=== PATIENT | female | born 1950 | race Caucasian/White ===

== ENCOUNTER → 2017-03-26 07:51 | Outpatient (CLI) | payer MEDICARE, SELFPAY ==
[2017-03-26 10:28] LABS: Absolute Lymphocyte Count 2.18 X10^3/ul (0.83-4.51); Absolute Neutrophil Count 4.2 X10^3/uL (2.0-7.7); Basophil# 0.03 X10^3/uL; Basophil% 0.4 % (0-1); Eosinophil# 0.17 X10^3/uL; Eosinophils% 2.4 % (0-5); Hematocrit 40.2 % (37-47); Hemoglobin 12.4 g/dl (12.0-15.0); Lymphocyte # 2.18 X10^3/ul (4.0); Lymphocyte % 30.3 % (19-41); Mean Corp Hgb Conc 30.8 g/gl (32-36); Mean Corpuscular Hgb 26.5 pg (27.0-32.0); Mean Corpuscular Volume 85.9 fL (81-99); Mean Platelet Vol. 10.1 fl (6.2-12.0); Monocyte# 0.58 X10^3/uL; Monocyte% 8.1 % (0-10); Neutrophil # 4.23 X10^3/uL (2.7-7.7); Neutrophil % 58.7 % (47-70); Platelet Count 271 K/mm3 (150-450); RBC Distribution Width CV 14.9 % (11.6-14.6); Red Blood Count 4.68 M/mm3 (4.2-5.4); White Blood Count 7.2 K/mm3 (4.4-11.0)
[2017-03-26 10:31] LABS: POSITIVE COUNT NO; POSITIVE DIFFERENTIAL NO; POSITIVE MORPHOLOGY NO
[2017-03-26 10:55] LABS: ALB/GLOB Ratio 0.9 RATIO (0.9-2.4); AST(SGOT) 15 U/L (15-37); Alanine Aminotransfer ALT/SGPT 31 U/L (13-56); Albumin, Serum 3.3 g/dL (3.2-5.0); Alkaline Phosphatase 69 U/L (45-117); Anion Gap 8 (5-15); BUN 27 mg/dL (7-18); BUN/Creat Ratio 37.6 RATIO (10-20); Calcium,Total 8.7 mg/dL (8.5-10.1); Chloride 108 mmol/L (98-107); Cholesterol 153 mg/dL (200); Creatinine, Serum 0.72 mg/dL (0.55-1.02); EST Glomerular Filtration Rate 87 mL/min (>60); Est Glom Filt Rate - Afr Amer 105 mL/min (>60); Globulin 3.8 g/dL (2.2-4.2); Glucose 89 mg/dL (74-106); High Density Lipoprotein 49 mg/dL; Potassium 3.6 mmol/L (3.5-5.1); Protein, Total 7.1 g/dL (6.4-8.2); Sodium Level 142 mmol/L (136-145); Thyroid Stim Hormone (TSH) 2.21 uIU/mL (0.358-3.74); Triglycerides 155 mg/dL; Very Low Density Lipoprotein 31 mg/dL (5-40)
== END ==
PROVIDERS: Family Provider Family Medicine; PCP Family Medicine; Visit Provider Internal Medicine Rheumatology
DX: I10 Essential (primary) hypertension (principal); E03.9 Hypothyroidism, unspecified; M06.09 Rheumatoid arthritis without rheumatoid factor, multiple sites; M17.0 Bilateral primary osteoarthritis of knee; M21.40 Flat foot [pes planus] (acquired), unspecified foot; M79.7 Fibromyalgia; Z79.899 Other long term (current) drug therapy
CPT/HCPCS: 36415; 80053; 80061; 84443; 85025

== ENCOUNTER → 2017-05-23 09:17 | Outpatient (CLI) | payer MEDICARE, SELFPAY ==
--- NOTE | 2017-05-23 09:20 | RAD_ITS ---
STUDY: X-RAY - RIGHT SHOULDER REASON FOR EXAM: Female, 66 years old. Post surgery 6 month follow-up TECHNIQUE: 3 view(s) of the shoulder. COMPARISON: 01/31/2017 FINDINGS: Total shoulder replacement in anatomic alignment with normal osseous interspace, intact metal hardware and cortices. Normal acromioclavicular joint. Normal acromion. The soft tissue structures are unremarkable. Normal visualized pulmonary apex. RAD/Shoulder min 2 Views IMPRESSION: Total shoulder replacement without complications. Electronically Signed: Marissa Lyman MD at 7:12 EDT , Service support ,
== END ==
PROVIDERS: Family Provider Family Medicine; PCP Family Medicine; Visit Provider Orthopaedic Surgery
DX: M25.511 Pain in right shoulder (principal)
CPT/HCPCS: 73030

== ENCOUNTER 2017-08-01 07:51 | Day surgery (SDC) | payer MEDICARE, SELFPAY ==
--- NOTE | 2017-08-01 | IMM_PTH ---
PATIENT: JORDAN BLUM LOC: EN U#:[id number] AGE/SX: 66/F ROOM: RE08/01/[address]: Dr. Dorota Toscano MD : 1950 BED: DIS: 08/01/2017 SPEC #: [id number] RECD: 08/02/17 11:01 STATUS: REGIS REQ #: [id number] FLOR: 08/01/17 00:[address]: Dorota Toscano DEPT: IMMUNOHISTOCHEMISTRY RECD BY: Audrey Frank ENTERED: 08/02/17 11:01 SP TYPE: IMMUNO OTHR DR: Dr. David Chambers MD Tissues: Stomach, NOS Procedures: H Pylori (initial) PHYSICIAN & INSTITUTION [place] [address] SPECIMEN INFORMATION: Tissue Source: Gastric pouch biopsy Clinical Info: Epigastric discomfort Specimen Number: [id number] CPT code: 53640 METHODOLOGY: Deparaffinized sections of prefer/formalin-fixed tissue or PAP/DQ stained slides are incubated with monoclonal/polyclonal antibodies/oligonucleotide probes. Localization is made via biotin free immunoperoxidase method. Appropriate controls are performed and reacted as expected. Results on target cell population are indicated in the following table: RESULTS: ANTIBODY / CLONE RESULT H Pylori (polyclonal) negative These tests were developed and their performance characteristics determined by [facility]. They may not have been cleared or approved by the U.S. Food and Drug Administration. The FDA has determined that such clearance or approval is not necessary. INTERPRETATION: Gastric pouch biopsy: Negative for Helicobacter pylori organisms. LOPEZ:miroslava 08/03/17
--- NOTE | 2017-08-01 | GASB_PTH ---
PATIENT: JORDAN BLUM LOC: EN U#:[id number] AGE/SX: 66/F ROOM: RE08/01/[address]: Dr. Dorota Toscano MD : 1950 BED: DIS: 08/01/2017 SPEC #: [id number] RECD: 08/01/17 11:37 STATUS: REGIS GERALDINE #: [id number] FLOR: 08/01/17 00:[address]: Dorota Toscano DEPT: SURGICAL PATHOLOGY RECD BY: Emery Bailey ENTERED: 08/01/17 11:37 SP TYPE: Gastric Bx OTHR DR: Dr. David Chambers MD Tissues: Gastric mucous membrane Procedures: Surgery Specimen Level IV HEADER OPERATION: EGD with biopsy PRE-OP DIAGNOSIS: Epigastric discomfort TISSUE SUBMITTED: Biopsy gastric pouch for H. pylori MICROSCOPIC DIAGNOSIS Gastric pouch, biopsy: Mild gastritis. SJ:miroslava 08/02/17 COMMENT The results of immunohistochemistry for Helicobacter pylori will be reported separately ([id number]). MICROSCOPIC DESCRIPTION Slides are reviewed. The specimen shows fragments of gastric mucosa with chronic inflammatory cell infiltrates in the lamina propria consisting of lymphocytes and plasma cells, consistent with mild chronic gastritis. GROSS DESCRIPTION Received in fixative is one container labeled with the patient's name and designated gastric pouch. The specimen consists of one irregular fragment of light haque soft tissue that measures 0.3 x 0.2 x 0.1 cm. The specimen is totally submitted in one cassette. / SJ:rg 08/01/17 TC:3 CPT: 15463
[2017-08-01 08:13] VITALS: BP 131/87; PULSE 63; RESP 16; TEMP 36.6; O2SAT 96; BMI 54.1
[2017-08-01 09:27] VITALS: BP 110/68; BP 131/87; PULSE 65; RESP 16; TEMP 37.3; O2SAT 100
[2017-08-01 09:32] VITALS: BP 107/66; BP 131/87; PULSE 63; RESP 17; O2SAT 99
[2017-08-01 09:37] VITALS: BP 110/67; BP 131/87; PULSE 61; RESP 16; O2SAT 98
[2017-08-01 09:42] VITALS: BP 117/82; BP 131/87; PULSE 60; RESP 16; TEMP 36.9; O2SAT 99
[2017-08-01 10:10] VITALS: BP 131/87
--- NOTE | 2017-08-01 11:05 | OP.PCM_ITS ---
Report of Operation Date of Procedure: 08/01/17 Pre-Operative Diagnosis: Epigastric pain status post gastric bypass on PPI, family history of colon cancer?brother at age 52 Post-Operative Diagnosis: Status post gastric bypass mild gastritis, normal colon Surgery/Procedure Performed:: EGD with biopsy, colonoscopy Type of Anesthesia:: MAC Anesthesiologist: Abdoulaye Camarillo Specimen's removed: 1. Gastric pouch biopsy Estimated Blood Loss (mL): Minimal Description of Procedure: Procedure: EGD with biopsy After obtaining informed consent, the endoscope was passed under direct visualization. Throughout the procedure, patient's blood pressure, pulse, oxygen saturations were monitored continuously by anesthesia. The endoscope was introduced through the mouth and advanced to the Macho jejunal limb. The upper GI endoscopy was accomplished without difficulty. Patient tolerated procedure well. Findings: Mild erythematous mucosa found gastric in the gastric pouch no evidence of any ulcers, biopsy was taken with cold forceps.. Biopsies were taken with cold biopsy for histology. Estimated blood loss was minimal. The Macho jejunal limb was normal. Impression: 1. Mild gastritis. Gastric pouch biopsied 2. Normal room jejunal limb Recommendations: Await biopsy Continue PPI Procedure: Colonoscopy After reviewing the risks benefits, the patient was deemed in satisfactory condition to undergo procedure. After obtaining informed consent, the scope was passed under direct visualization. Throughout the procedure, the patient's blood pressure pulse and position saturations were monitored continuously anesthesia. The colonoscope was introduced through the anus and advanced to the cecum, identified by the appendiceal orifice, IC valve and transillumination. The colonoscopy was performed without difficulty. The patient tolerated procedure well. Quality of bowel prep was good. Findings: The perianal and digital rectal exam were normal. The colon (entire examined portion) appeared normal. Retroflexed view of the distal rectum and anal verge was normal and showed no anal or rectal abnormalities Impression: 1. The entire colon is normal. 2. The distal rectal and anal verge were normal on retroflexed view. Recommendations: Repeat colonoscopy in 5 years for screening purposes due to family history, brother diagnosed at age 52 - Complications none
== END 2017-08-01 10:22 | disposition home or self-care (01) ==
LOC: EN 07:52 → AC 07:54
PROVIDERS: Family Provider Family Medicine; PCP Family Medicine; Visit Provider Surgery
PROC: 0DJD8ZZ Inspection of Lower Intestinal Tract, Via Natural or Artificial Opening Endoscopic (ICD-10-PCS; CPT 45378; principal; 2017-08-01 08:55)
DX: K29.70 Gastritis, unspecified, without bleeding (principal); K21.9 Gastro-esophageal reflux disease without esophagitis; M06.9 Rheumatoid arthritis, unspecified; E66.01 Morbid (severe) obesity due to excess calories; J30.9 Allergic rhinitis, unspecified; I10 Essential (primary) hypertension; E55.9 Vitamin D deficiency, unspecified; E53.8 Deficiency of other specified B group vitamins; G40.909 Epilepsy, unspecified, not intractable, without status epilepticus; E03.9 Hypothyroidism, unspecified; F32.9 Major depressive disorder, single episode, unspecified; F41.9 Anxiety disorder, unspecified; Z80.0 Family history of malignant neoplasm of digestive organs; Z68.43 Body mass index [BMI] 50.0-59.9, adult; Z98.84 Bariatric surgery status; Z85.42 Personal history of malignant neoplasm of other parts of uterus; Z87.19 Personal history of other diseases of the digestive system; Z79.1 Long term (current) use of non-steroidal anti-inflammatories (NSAID); Z79.51 Long term (current) use of inhaled steroids; Z79.899 Other long term (current) drug therapy
CPT/HCPCS: 43239; 45378; 88305; 88342; J7120

== ENCOUNTER → 2017-09-10 09:05 | Outpatient (CLI) | payer MEDICARE, SELFPAY ==
[2017-09-10 10:14] LABS: Absolute Lymphocyte Count 2.56 X10^3/ul (0.83-4.51); Absolute Neutrophil Count 4.1 X10^3/uL (2.0-7.7); Basophil# 0.05 X10^3/uL; Basophil% 0.7 % (0-1); Eosinophil# 0.16 X10^3/uL; Eosinophils% 2.1 % (0-5); Hematocrit 41.1 % (37-47); Hemoglobin 12.9 g/dl (12.0-15.0); Lymphocyte # 2.56 X10^3/ul (4.0); Lymphocyte % 34.2 % (19-41); Mean Corp Hgb Conc 31.4 g/gl (32-36); Mean Corpuscular Hgb 26.7 pg (27.0-32.0); Mean Corpuscular Volume 84.9 fL (81-99); Mean Platelet Vol. 9.9 fl (6.2-12.0); Monocyte# 0.58 X10^3/uL; Monocyte% 7.8 % (0-10); Neutrophil # 4.12 X10^3/uL (2.7-7.7); Neutrophil % 55.1 % (47-70); Platelet Count 285 K/mm3 (150-450); RBC Distribution Width CV 16.3 % (11.6-14.6); RBC Distribution Width SD 49.4 fl (35.1-43.9); Red Blood Count 4.84 M/mm3 (4.2-5.4); White Blood Count 7.5 K/mm3 (4.4-11.0)
[2017-09-10 10:15] LABS: POSITIVE COUNT NO; POSITIVE DIFFERENTIAL NO; POSITIVE MORPHOLOGY NO
[2017-09-10 10:50] LABS: ALB/GLOB Ratio 0.8 RATIO (0.9-2.4); AST(SGOT) 19 U/L (15-37); Alanine Aminotransfer ALT/SGPT 25 U/L (13-56); Albumin, Serum 3.2 g/dL (3.2-5.0); Alkaline Phosphatase 67 U/L (45-117); Anion Gap 5 (5-15); BUN 18 mg/dL (7-18); BUN/Creat Ratio 23.3 RATIO (10-20); Calcium,Total 8.4 mg/dL (8.5-10.1); Chloride 107 mmol/L (98-107); Creatinine, Serum 0.77 mg/dL (0.55-1.02); EST Glomerular Filtration Rate 80 mL/min (>60); Est Glom Filt Rate - Afr Amer 97 mL/min (>60); Globulin 4.1 g/dL (2.2-4.2); Glucose 78 mg/dL (74-106); Protein, Total 7.3 g/dL (6.4-8.2); Sodium Level 141 mmol/L (136-145)
== END ==
PROVIDERS: Family Provider Family Medicine; PCP Family Medicine; Visit Provider Internal Medicine Rheumatology
DX: M06.09 Rheumatoid arthritis without rheumatoid factor, multiple sites (principal); M79.7 Fibromyalgia; M17.0 Bilateral primary osteoarthritis of knee; M21.40 Flat foot [pes planus] (acquired), unspecified foot; F32.89 Other specified depressive episodes; I10 Essential (primary) hypertension; E03.9 Hypothyroidism, unspecified; I47.1 Supraventricular tachycardia; Z98.84 Bariatric surgery status; Z79.899 Other long term (current) drug therapy
CPT/HCPCS: 36415; 80053; 85025

== ENCOUNTER → 2017-10-15 12:15 | Outpatient (CLI) | payer MEDICARE, SELFPAY | PROVIDERS: Family Provider Family Medicine; PCP Family Medicine; Visit Provider Family Medicine | DX: S80.02XA Contusion of left knee, initial encounter (principal); S99.922A Unspecified injury of left foot, initial encounter; W19.XXXA Unspecified fall, initial encounter | CPT/HCPCS: 73564; 73630 ==

== ENCOUNTER → 2017-10-23 15:53 | Outpatient (CLI) | payer MEDICARE, SELFPAY | PROVIDERS: Family Provider Family Medicine; PCP Family Medicine; Visit Provider Nurse Practitioner Adult Health | DX: M79.89 Other specified soft tissue disorders (principal) | CPT/HCPCS: 93971 ==

== ENCOUNTER → 2017-12-17 08:53 | Outpatient (CLI) | payer MEDICARE, SELFPAY ==
--- NOTE | 2017-12-17 08:57 | RAD_ITS ---
STUDY: X-RAY - RIGHT SHOULDER REASON FOR EXAM: Female, 67 years old. 1 year follow-up, shoulder replacement. TECHNIQUE: 3 view(s) of the shoulder. COMPARISON: Right shoulder, May 23, 2017. All FINDINGS: Again seen is a right total shoulder replacement. The component parts are intact and articulate normally with each other. There is no loosening from the underlying bone. There is no associated osseous fracture. The soft tissue structures are unremarkable. Normal visualized pulmonary apex. RAD/Shoulder min 2 Views IMPRESSION: Right total shoulder replacement without complication or interval change. Electronically Signed: Guille Tran DO at 21:13 EDT Tel [phone], Service support ,
== END ==
PROVIDERS: Family Provider Family Medicine; PCP Family Medicine; Referring Provider Physician Assistant; Visit Provider Physician Assistant
DX: M25.511 Pain in right shoulder (principal)
CPT/HCPCS: 73030

== ENCOUNTER → 2018-03-04 07:55 | Outpatient (CLI) | payer MEDICARE, SELFPAY ==
[2018-03-04 09:29] LABS: Absolute Lymphocyte Count 2.43 X10^3/ul (0.83-4.51); Basophil# 0.04 X10^3/uL; Basophil% 0.5 % (0-1); Eosinophil# 0.22 X10^3/uL; Hematocrit 43.9 % (37-47); Hemoglobin 13.6 g/dl (12.0-15.0); Lymphocyte # 2.43 X10^3/ul (4.0); Lymphocyte % 33.2 % (19-41); Mean Corpuscular Hgb 27.9 pg (27.0-32.0); Monocyte# 0.62 X10^3/uL; Monocyte% 8.5 % (0-10); Neutrophil # 4.01 X10^3/uL (2.7-7.7); Neutrophil % 54.7 % (47-70); Platelet Count 248 K/mm3 (150-450); RBC Distribution Width CV 15.6 % (11.6-14.6); RBC Distribution Width SD 51.1 fl (35.1-43.9); Red Blood Count 4.88 M/mm3 (4.2-5.4); White Blood Count 7.3 K/mm3 (4.4-11.0)
[2018-03-04 09:35] LABS: POSITIVE COUNT NO; POSITIVE DIFFERENTIAL NO; POSITIVE MORPHOLOGY NO
[2018-03-04 10:05] LABS: ALB/GLOB Ratio 0.8 RATIO (0.9-2.4); AST(SGOT) 21 U/L (15-37); Alanine Aminotransfer ALT/SGPT 37 U/L (13-56); Albumin, Serum 3.3 g/dL (3.2-5.0); Alkaline Phosphatase 68 U/L (45-117); Anion Gap 10 (5-15); BUN 24 mg/dL (7-18); BUN/Creat Ratio 33.8 RATIO (10-20); Calcium,Total 8.6 mg/dL (8.5-10.1); Chloride 106 mmol/L (98-107); Creatinine, Serum 0.71 mg/dL (0.55-1.02); EST Glomerular Filtration Rate 88 mL/min (>60); Est Glom Filt Rate - Afr Amer 106 mL/min (>60); Glucose 92 mg/dL (74-106); Potassium 3.7 mmol/L (3.5-5.1); Protein, Total 7.3 g/dL (6.4-8.2); Sodium Level 144 mmol/L (136-145)
== END ==
PROVIDERS: Family Provider Family Medicine; PCP Family Medicine; Referring Provider Internal Medicine Rheumatology; Visit Provider Internal Medicine Rheumatology
DX: M06.09 Rheumatoid arthritis without rheumatoid factor, multiple sites (principal); M79.7 Fibromyalgia; M17.0 Bilateral primary osteoarthritis of knee; Z79.899 Other long term (current) drug therapy
CPT/HCPCS: 36415; 80053; 85025

== ENCOUNTER → 2018-07-02 09:03 | Outpatient (CLI) | payer MEDICARE, SELFPAY ==
--- NOTE | 2018-07-02 09:10 | BI_ITS ---
MAMMOGRAPHY - BILATERAL SCREENING REASON FOR EXAM: Female, 67 years old. Routine annual screening examination. PERTINENT HISTORY: Non-contributory. TECHNIQUE: Digital bilateral breast tony (3D mammographic acquisition) in the CC and MLO projections. 2-D mediolateral oblique (MLO) and craniocaudad (CC) views of both breasts were obtained. CAD: Full Field Digital Mammography with Computer Added Detection was performed. COMPARISON: Comparison is made with prior study dated September 20, 2016 and August 24, 2015. FINDINGS: Breast Composition: The breasts are almost entirely fatty. There are no dominant masses or suspicious calcifications. Stable calcified nodular density in the central portion of the left breast. Stable small benign-appearing bilateral axillary lymph nodes. No other significant abnormalities are identified. There has been no significant change since the prior study. BI/SCREENING MAMM (CAD), BILAT IMPRESSION: Stable bilateral screening mammogram. Yearly follow-up mammogram recommended. (A) ASSESSMENT CATEGORY: BIRADS Category 2: Benign. A letter regarding these results will be sent to the patient by the facility within 30 days. Approximately 10% of breast cancers are not detected by mammography. A normal mammogram should not delay biopsy of a clinically suspicious abnormality. [id number] Electronically Signed: Tex Harvey, at 11:24 EDT , Service support ,
== END ==
PROVIDERS: Family Provider Family Medicine; PCP Family Medicine; Referring Provider Family Medicine; Visit Provider Family Medicine
DX: Z12.31 Encounter for screening mammogram for malignant neoplasm of breast (principal)
CPT/HCPCS: 77063; 77067

== ENCOUNTER → 2018-07-10 | Outpatient (CLI) | payer MEDICARE, SELFPAY ==
[2018-07-10 12:47] LABS: Free T3 1.8 pg/mL (2.18-3.98); T4 Total, Thyroxin 12.7 ug/dL (4.8-13.9); Thyroid Stim Hormone (TSH) 0.61 uIU/mL (0.358-3.74)
== END | disposition home or self-care (01) ==
LOC: MFPLAB 09:38
PROVIDERS: Family Provider Family Medicine; PCP Family Medicine; Referring Provider Family Medicine; Visit Provider Family Medicine
DX: E03.9 Hypothyroidism, unspecified (principal)
CPT/HCPCS: 36415; 84436; 84443; 84481

== ENCOUNTER → 2018-09-09 | Outpatient (CLI) | payer MEDICARE, SELFPAY ==
[2018-09-09 09:50] LABS: Absolute Lymphocyte Count 2.36 X10^3/uL (0.83-4.51); Absolute Neutrophil Count 3.9 X10^3/uL (2.0-7.7); Basophil# 0.06 X10^3/uL; Basophil% 0.8 % (0-1); Eosinophil# 0.14 X10^3/uL; Hematocrit 40.6 % (37-47); Hemoglobin 13.1 g/dL (12.0-15.0); Lymphocyte # 2.36 X10^3/ul (4.0); Lymphocyte % 33.2 % (19-41); Mean Corp Hgb Conc 32.3 g/dL (32-36); Mean Platelet Vol. 9.6 fl (6.2-12.0); Monocyte# 0.62 X10^3/uL; Monocyte% 8.7 % (0-10); NRBC Flagged by Analyzer 0 % (0-5); Neutrophil # 3.91 X10^3/uL (2.7-7.7); Platelet Count 243 K/mm3 (150-450); RBC Distribution Width CV 13.9 % (11.6-14.6); RBC Distribution Width SD 45.8 fl (35.1-43.9); Red Blood Count 4.51 M/mm3 (4.2-5.4); White Blood Count 7.1 K/mm3 (4.4-11.0)
[2018-09-09 10:03] LABS: ALB/GLOB Ratio 0.9 RATIO (0.9-2.4); AST(SGOT) 18 U/L (15-37); Alanine Aminotransfer ALT/SGPT 36 U/L (13-56); Albumin, Serum 3.2 g/dL (3.2-5.0); Alkaline Phosphatase 63 U/L (45-117); Anion Gap 9 (5-15); BUN 19 mg/dL (7-18); Calcium,Total 8.7 mg/dL (8.5-10.1); Chloride 107 mmol/L (98-107); Creatinine, Serum 0.73 mg/dL (0.55-1.02); EST Glomerular Filtration Rate 85 mL/min (>60); Est Glom Filt Rate - Afr Amer 102 mL/min (>60); Globulin 3.7 g/dL (2.2-4.2); Glucose 92 mg/dL (74-106); Potassium 3.9 mmol/L (3.5-5.1); Protein, Total 6.9 g/dL (6.4-8.2); Sodium Level 144 mmol/L (136-145)
== END | disposition home or self-care (01) ==
LOC: MTLAB 08:36
PROVIDERS: Family Provider Family Medicine; PCP Family Medicine; Referring Provider Internal Medicine Rheumatology; Visit Provider Internal Medicine Rheumatology
DX: M06.00 Rheumatoid arthritis without rheumatoid factor, unspecified site (principal); M79.7 Fibromyalgia; M17.0 Bilateral primary osteoarthritis of knee; M21.40 Flat foot [pes planus] (acquired), unspecified foot; F32.89 Other specified depressive episodes; I10 Essential (primary) hypertension; E03.9 Hypothyroidism, unspecified; I47.1 Supraventricular tachycardia; Z98.84 Bariatric surgery status; Z79.899 Other long term (current) drug therapy
CPT/HCPCS: 36415; 80053; 85025

== ENCOUNTER → 2018-10-10 | Outpatient (CLI) | payer MEDICARE, SELFPAY ==
[2018-10-10 10:41] LABS: Cholesterol 127 mg/dL (200); Free T3 2.2 pg/mL (2.18-3.98); High Density Lipoprotein 41 mg/dL; Thyroid Stim Hormone (TSH) 1.31 uIU/mL (0.358-3.74); Triglycerides 165 mg/dL; Very Low Density Lipoprotein 33 mg/dL (5-40)
== END | disposition home or self-care (01) ==
LOC: MFPLAB 09:19
PROVIDERS: Family Provider Family Medicine; PCP Family Medicine; Referring Provider Family Medicine; Visit Provider Family Medicine
DX: Z00.00 Encounter for general adult medical examination without abnormal findings (principal); E03.9 Hypothyroidism, unspecified
CPT/HCPCS: 36415; 80061; 84436; 84443; 84481

== ENCOUNTER → 2018-10-22 | Outpatient (CLI) | payer MEDICARE, SELFPAY ==
--- NOTE | 2018-10-22 10:01 | BD_ITS ---
STUDY: DUAL ENERGY X-RAY ABSORPTIOMETRY / DXA REASON FOR EXAM: Female, 68 years old. Early menopause. Loss of height. TECHNIQUE: Bone Mineral Density (BMD) measurements of lumbar spine and bilateral hips were obtained. COMPARISON: Comparison is made with prior study dated September 21, 2016. FINDINGS: Lumbar Spine (L1-L4): g/cm2 (1.159) / T-score (0.0) / Z-score (1.6) Findings are suggestive of normal bone density with a low fracture risk. Left Femur Total: g/cm2 (0.851) / T-score (-1.2) / Z-score (0.0) Left Femoral Neck: g/cm2 (0.804) / T-score (-1.7) / Z-score (-0.2) Right Femur Total: g/cm2 (0.864) / T-score (-1.1) / Z-score (0.1) Right Femoral Neck: g/cm2 (0.758) / T-score (-2.0) / Z-score (-0.5) The T-Scores on the most recent prior examination were: Lumbar Spine (L1-L4): There has been worsening of bone density since the previous examination. Left Femur Total: which represents an improvement of 1.2%. Right Femur Total: which represents an improvement of 4.9%. BD/Dexa Bone Density Study IMPRESSION: The patient is considered osteopenic as outlined below according to World Mario Alberto Organization (WHO) criteria with a moderate fracture risk. Reference Information: The T-score is the number of standard deviations above or below the standard which is normal for young adults at their peak bone mineral density. The World Health Organization (WHO) interprets the T-scores as follows: Above -1 Normal bone density Between -1 and -2.5 Osteopenia Equal to / or below -2.5 Osteoporosis As a practical clinical guideline, osteopenia may be graded as follows: Mild -1 through -1.5 Moderate -1.6 through -2.0 Severe -2.1 through -2.4 The Z-score is the number of standard deviations above or below age-matched controls. A Z-score of less than -1.5 would be considered abnormal. References: 1. NIH Osteoporosis and Related Bone Diseases http://www.osteo.org 2. International Society for Clinical Densitometry http://www.iscd.org 3. National Osteoporosis Foundation http://www.nof.org Electronically Signed: Tex Harvey, at 14:19 EDT , Service support ,
== END | disposition home or self-care (01) ==
LOC: OPBD 09:56
PROVIDERS: Family Provider Family Medicine; PCP Family Medicine; Referring Provider Family Medicine; Visit Provider Family Medicine
DX: M81.0 Age-related osteoporosis without current pathological fracture (principal)
CPT/HCPCS: 77080

== ENCOUNTER → 2018-10-24 | Outpatient (CLI) | payer MEDICARE, SELFPAY ==
[2018-10-24 12:38] VITALS: BMI 54.1
--- NOTE | 2018-10-24 12:44 | RAD_ITS ---
STUDY: X-RAY - RIGHT SHOULDER REASON FOR EXAM: Female, 68 years old. Pain. TECHNIQUE: 5 view(s) of the shoulder. COMPARISON: December 17, 2017. FINDINGS: There is a right shoulder arthroplasty. The prosthetic components are intact and articulate normally with jugular. There is no fracture or loosening from the underlying bone. Mild degenerative changes of the acromioclavicular joint. Normal acromion. The soft tissue structures are unremarkable. Normal visualized pulmonary apex. RAD/Shoulder min 2 Views IMPRESSION: Stable right shoulder replacement. Electronically Signed: Guille Tran DO at 21:10 EDT Tel [phone], Service support ,
== END | disposition home or self-care (01) ==
LOC: HPRAD 12:43
PROVIDERS: Family Provider Family Medicine; PCP Family Medicine; Referring Provider Physician Assistant; Visit Provider Physician Assistant
DX: Z96.611 Presence of right artificial shoulder joint (principal)
CPT/HCPCS: 73030

== ENCOUNTER → 2019-03-10 07:02 | Outpatient (CLI) | payer MEDICARE, SELFPAY ==
[2018-10-24 12:38] VITALS: BMI 54.1
[2019-03-10 10:30] LABS: Absolute Lymphocyte Count 2.59 X10^3/uL (0.83-4.51); Absolute Neutrophil Count 3.7 X10^3/uL (2.0-7.7); Basophil# 0.07 X10^3/uL; Eosinophil# 0.18 X10^3/uL; Eosinophils% 2.6 % (0-5); Hematocrit 41.6 % (37-47); Hemoglobin 12.8 g/dL (12.0-15.0); Lymphocyte # 2.59 X10^3/ul (4.0); Lymphocyte % 36.8 % (19-41); Mean Corp Hgb Conc 30.8 g/dL (32-36); Mean Corpuscular Hgb 27.2 pg (27.0-32.0); Mean Corpuscular Volume 88.5 fL (81-99); Mean Platelet Vol. 10.3 fl (6.2-12.0); Monocyte% 7.1 % (0-10); NRBC Flagged by Analyzer 0 % (0-5); Neutrophil # 3.68 X10^3/uL (2.7-7.7); Neutrophil % 52.2 % (47-70); Platelet Count 269 K/mm3 (150-450); RBC Distribution Width CV 14.1 % (11.6-14.6); RBC Distribution Width SD 46.1 fl (35.1-43.9)
[2019-03-10 11:18] LABS: ALB/GLOB Ratio 0.9 RATIO (0.9-2.4); AST(SGOT) 21 U/L (15-37); Alanine Aminotransfer ALT/SGPT 35 U/L (13-56); Albumin, Serum 3.2 g/dL (3.2-5.0); Alkaline Phosphatase 59 U/L (45-117); Anion Gap 5 (5-15); BUN 22 mg/dL (7-18); BUN/Creat Ratio 27.7 RATIO (10-20); Calcium,Total 8.7 mg/dL (8.5-10.1); Chloride 105 mmol/L (98-107); Creatinine, Serum 0.79 mg/dL (0.55-1.02); EST Glomerular Filtration Rate 77 mL/min (>60); Est Glom Filt Rate - Afr Amer 93 mL/min (>60); Globulin 3.7 g/dL (2.2-4.2); Glucose 82 mg/dL (74-106); Potassium 3.6 mmol/L (3.5-5.1); Protein, Total 6.9 g/dL (6.4-8.2); Sodium Level 139 mmol/L (136-145)
== END ==
PROVIDERS: PCP Family Medicine; Referring Provider Internal Medicine Rheumatology; Visit Provider Internal Medicine Rheumatology
DX: M06.00 Rheumatoid arthritis without rheumatoid factor, unspecified site (principal); M79.7 Fibromyalgia; M17.0 Bilateral primary osteoarthritis of knee; M47.897 Other spondylosis, lumbosacral region; M21.40 Flat foot [pes planus] (acquired), unspecified foot; F32.89 Other specified depressive episodes; I10 Essential (primary) hypertension; E03.9 Hypothyroidism, unspecified; I47.1 Supraventricular tachycardia; Z98.84 Bariatric surgery status; Z79.899 Other long term (current) drug therapy
CPT/HCPCS: 36415; 80053; 85025

== ENCOUNTER → 2019-04-02 | Outpatient (CLI) | payer MEDICARE, SELFPAY ==
[2018-10-24 12:38] VITALS: BMI 54.1
[2019-04-02 14:34] LABS: Free T3 2.4 pg/mL (2.18-3.98); T4 Total, Thyroxin 11.3 ug/dL (4.8-13.9); Thyroid Stim Hormone (TSH) 1.82 uIU/mL (0.358-3.74)
== END | disposition home or self-care (01) ==
LOC: MFPLAB 11:17
PROVIDERS: PCP Family Medicine; Referring Provider Family Medicine; Visit Provider Family Medicine
DX: E03.9 Hypothyroidism, unspecified (principal)
CPT/HCPCS: 36415; 84436; 84443; 84481

== ENCOUNTER → 2019-06-11 08:04 | Outpatient (CLI) | payer MEDICARE, SELFPAY ==
[2018-10-24 12:38] VITALS: BMI 54.1
[2019-06-11 10:02] LABS: Absolute Lymphocyte Count 3.26 X10^3/uL (0.83-4.51); Absolute Neutrophil Count 3.1 X10^3/uL (2.0-7.7); Basophil# 0.06 X10^3/uL; Basophil% 0.8 % (0-1); Eosinophil# 0.15 X10^3/uL; Eosinophils% 2.1 % (0-5); Hematocrit 39.2 % (37-47); Hemoglobin 11.8 g/dL (12.0-15.0); Lymphocyte # 3.26 X10^3/ul (4.0); Lymphocyte % 45.5 % (19-41); Mean Corp Hgb Conc 30.1 g/dL (32-36); Mean Corpuscular Hgb 25.3 pg (27.0-32.0); Mean Corpuscular Volume 84.1 fL (81-99); Mean Platelet Vol. 9.6 fl (6.2-12.0); Monocyte% 8.4 % (0-10); NRBC Flagged by Analyzer 0 % (0-5); Neutrophil # 3.09 X10^3/uL (2.7-7.7); Neutrophil % 43.1 % (47-70); Platelet Count 304 K/mm3 (150-450); RBC Distribution Width CV 14.4 % (11.6-14.6); RBC Distribution Width SD 43.7 fl (35.1-43.9); Red Blood Count 4.66 M/mm3 (4.2-5.4); White Blood Count 7.2 K/mm3 (4.4-11.0)
[2019-06-11 10:58] LABS: ALB/GLOB Ratio 0.8 RATIO (0.9-2.4); AST(SGOT) 24 U/L (15-37); Alanine Aminotransfer ALT/SGPT 36 U/L (13-56); Albumin, Serum 3.4 g/dL (3.2-5.0); Alkaline Phosphatase 59 U/L (45-117); Anion Gap 7 (5-15); BUN 21 mg/dL (7-18); BUN/Creat Ratio 24.3 RATIO (10-20); Calcium,Total 8.8 mg/dL (8.5-10.1); Chloride 104 mmol/L (98-107); Creatinine, Serum 0.86 mg/dL (0.55-1.02); EST Glomerular Filtration Rate 70 mL/min (>60); Est Glom Filt Rate - Afr Amer 84 mL/min (>60); Globulin 4.1 g/dL (2.2-4.2); Glucose 95 mg/dL (74-106); Potassium 3.9 mmol/L (3.5-5.1); Protein, Total 7.5 g/dL (6.4-8.2); Sodium Level 139 mmol/L (136-145)
== END ==
PROVIDERS: PCP Family Medicine; Referring Provider Internal Medicine Rheumatology; Visit Provider Internal Medicine Rheumatology
DX: M06.00 Rheumatoid arthritis without rheumatoid factor, unspecified site (principal); Z79.899 Other long term (current) drug therapy; M79.7 Fibromyalgia; M17.0 Bilateral primary osteoarthritis of knee; M47.897 Other spondylosis, lumbosacral region; M21.40 Flat foot [pes planus] (acquired), unspecified foot; F32.89 Other specified depressive episodes; I10 Essential (primary) hypertension; E03.9 Hypothyroidism, unspecified; I47.1 Supraventricular tachycardia; Z98.84 Bariatric surgery status
CPT/HCPCS: 36415; 80053; 85025

== ENCOUNTER → 2019-06-25 | Outpatient (CLI) | payer MEDICARE, SELFPAY ==
[2018-10-24 12:38] VITALS: BMI 54.1
--- NOTE | 2019-06-25 14:05 | VDLE_ITS ---
Reason For Study: Rt leg swelling RIGHT GSV is normal. CFV is compressible, spontaneous, phasic, competent and demonstrates normal augmentation. FV is compressible, spontaneous, phasic, competent and demonstrates normal augmentation. POP V is compressible, spontaneous, phasic, competent and demonstrates normal augmentation. T/P Trunk is compressible. PTV is compressible. RT PerV is compressible. Procedure Exam performed in department. A preliminary report was called and/or faxed to [facility]. Interpretation Summary Deep veins of the right lower extremity are patent and compressible segmentally. There is no evidence of right lower extremity deep vein thrombosis. Valvular competence appears intact within the proximal deep venous system on the right . The right great saphenous vein appears patent and compressible segmentally. Ordering Physician: David Chambers Referring Physician: David Chambers Performed By: Alicia Rogers RVT
== END | disposition home or self-care (01) ==
PROVIDERS: PCP Family Medicine; Referring Provider Family Medicine; Visit Provider Family Medicine
DX: M79.89 Other specified soft tissue disorders (principal)
CPT/HCPCS: 93971

== ENCOUNTER → 2019-09-09 | Outpatient (CLI) | payer MEDICARE, SELFPAY ==
[2018-10-24 12:38] VITALS: BMI 54.1
[2019-09-09 10:03] LABS: Absolute Lymphocyte Count 2.34 X10^3/uL (0.83-4.51); Absolute Neutrophil Count 3.6 X10^3/uL (2.0-7.7); Basophil# 0.08 X10^3/uL; Basophil% 1.2 % (0-1); Eosinophil# 0.19 X10^3/uL; Eosinophils% 2.8 % (0-5); Hematocrit 39.7 % (37-47); Hemoglobin 11.8 g/dL (12.0-15.0); Lymphocyte # 2.34 X10^3/ul (4.0); Lymphocyte % 34.6 % (19-41); Mean Corp Hgb Conc 29.7 g/dL (32-36); Mean Corpuscular Hgb 24.8 pg (27.0-32.0); Mean Corpuscular Volume 83.4 fL (81-99); Mean Platelet Vol. 9.6 fl (6.2-12.0); Monocyte# 0.54 X10^3/uL; NRBC Flagged by Analyzer 0 % (0-5); Neutrophil % 53.3 % (47-70); Platelet Count 322 K/mm3 (150-450); RBC Distribution Width CV 16.1 % (11.6-14.6); RBC Distribution Width SD 48.4 fl (35.1-43.9); Red Blood Count 4.76 M/mm3 (4.2-5.4); White Blood Count 6.8 K/mm3 (4.4-11.0)
[2019-09-09 10:11] LABS: ALB/GLOB Ratio 0.9 RATIO (0.9-2.4); AST(SGOT) 15 U/L (15-37); Alanine Aminotransfer ALT/SGPT 29 U/L (13-56); Albumin, Serum 3.3 g/dL (3.2-5.0); Alkaline Phosphatase 64 U/L (45-117); Anion Gap 5 (5-15); BUN 27 mg/dL (7-18); BUN/Creat Ratio 34.8 RATIO (10-20); Calcium,Total 8.5 mg/dL (8.5-10.1); Chloride 110 mmol/L (98-107); Creatinine, Serum 0.78 mg/dL (0.55-1.02); EST Glomerular Filtration Rate 79 mL/min (>60); Est Glom Filt Rate - Afr Amer 95 mL/min (>60); Globulin 3.7 g/dL (2.2-4.2); Glucose 116 mg/dL (74-106); Potassium 3.9 mmol/L (3.5-5.1); Sodium Level 143 mmol/L (136-145)
== END | disposition home or self-care (01) ==
LOC: MTLAB 08:35
PROVIDERS: PCP Family Medicine; Referring Provider Internal Medicine Rheumatology; Visit Provider Internal Medicine Rheumatology
DX: M06.09 Rheumatoid arthritis without rheumatoid factor, multiple sites (principal); M79.7 Fibromyalgia; M17.0 Bilateral primary osteoarthritis of knee; M47.897 Other spondylosis, lumbosacral region; M21.40 Flat foot [pes planus] (acquired), unspecified foot; Z79.899 Other long term (current) drug therapy
CPT/HCPCS: 36415; 80053; 85025

== ENCOUNTER → 2019-11-14 | Outpatient (CLI) | payer MEDICARE, SELFPAY ==
[2018-10-24 12:38] VITALS: BMI 54.1
[2019-11-14 10:18] LABS: Anion Gap 6 (5-15); BUN 25 mg/dL (7-18); BUN/Creat Ratio 28.6 RATIO (10-20); Calcium,Total 8.3 mg/dL (8.5-10.1); Chloride 107 mmol/L (98-107); Cholesterol 158 mg/dL (200); Creatinine, Serum 0.88 mg/dL (0.55-1.02); EST Glomerular Filtration Rate 69 mL/min (>60); Est Glom Filt Rate - Afr Amer 83 mL/min (>60); Glucose 96 mg/dL (74-106); High Density Lipoprotein 48 mg/dL; Potassium 3.6 mmol/L (3.5-5.1); Sodium Level 140 mmol/L (136-145); T4 Total, Thyroxin 9.7 ug/dL (4.8-13.9); Thyroid Stim Hormone (TSH) 1.69 uIU/mL (0.358-3.74); Triglycerides 185 mg/dL; Very Low Density Lipoprotein 37 mg/dL (5-40)
[2019-11-17 01:37] LABS: KEPPRA (LEVETIRACETAM) 7.9 ug/mL (10.0-40.0)
== END | disposition home or self-care (01) ==
LOC: MFPLAB 08:15
PROVIDERS: PCP Family Medicine; Referring Provider Family Medicine; Visit Provider Family Medicine
DX: I10 Essential (primary) hypertension (principal); E03.9 Hypothyroidism, unspecified; Z87.898 Personal history of other specified conditions
CPT/HCPCS: 36415; 80048; 80061; 80177; 84436; 84443; 84481

== ENCOUNTER → 2020-03-10 08:02 | Outpatient (CLI) | payer MEDICARE, SELFPAY ==
[2018-10-24 12:38] VITALS: BMI 54.1
[2020-03-10 10:08] LABS: Absolute Lymphocyte Count 2.92 X10^3/uL (0.83-4.51); Absolute Neutrophil Count 2.6 X10^3/uL (2.0-7.7); Basophil# 0.09 X10^3/uL; Basophil% 1.4 % (0-1); Eosinophil# 0.25 X10^3/uL; Eosinophils% 3.9 % (0-5); Hemoglobin 11.7 g/dL (12.0-15.0); Lymphocyte # 2.92 X10^3/ul (4.0); Lymphocyte % 45.6 % (19-41); Mean Corpuscular Hgb 24.3 pg (27.0-32.0); Mean Corpuscular Volume 80.9 fL (81-99); Mean Platelet Vol. 9.4 fl (6.2-12.0); Monocyte# 0.52 X10^3/uL; Monocyte% 8.1 % (0-10); NRBC Flagged by Analyzer 0 % (0-5); Neutrophil # 2.62 X10^3/uL (2.7-7.7); Neutrophil % 40.8 % (47-70); Platelet Count 320 K/mm3 (150-450); RBC Distribution Width CV 15.6 % (11.6-14.6); RBC Distribution Width SD 45.8 fl (35.1-43.9); Red Blood Count 4.82 M/mm3 (4.2-5.4); White Blood Count 6.4 K/mm3 (4.4-11.0)
[2020-03-10 10:35] LABS: ALB/GLOB Ratio 0.8 RATIO (0.9-2.4); AST(SGOT) 18 U/L (15-37); Alanine Aminotransfer ALT/SGPT 33 U/L (13-56); Alkaline Phosphatase 73 U/L (45-117); Anion Gap 5 (5-15); BUN 17 mg/dL (7-18); BUN/Creat Ratio 18.9 RATIO (10-20); Chloride 107 mmol/L (98-107); Cholesterol 132 mg/dL (200); EST Glomerular Filtration Rate 66 mL/min (>60); Est Glom Filt Rate - Afr Amer 80 mL/min (>60); Free T3 2.2 pg/mL (2.18-3.98); Globulin 3.8 g/dL (2.2-4.2); Glucose 96 mg/dL (74-106); High Density Lipoprotein 43 mg/dL; Potassium 4.2 mmol/L (3.5-5.1); Protein, Total 6.8 g/dL (6.4-8.2); Sodium Level 140 mmol/L (136-145); T4 Total, Thyroxin 9.4 ug/dL (4.8-13.9); Thyroid Stim Hormone (TSH) 1.54 uIU/mL (0.358-3.74); Triglycerides 231 mg/dL; Very Low Density Lipoprotein 46 mg/dL (5-40)
== END ==
PROVIDERS: PCP Family Medicine; Referring Provider Family Medicine; Visit Provider Family Medicine
DX: E03.9 Hypothyroidism, unspecified (principal); I10 Essential (primary) hypertension; M06.09 Rheumatoid arthritis without rheumatoid factor, multiple sites; M79.7 Fibromyalgia; M17.0 Bilateral primary osteoarthritis of knee; M47.897 Other spondylosis, lumbosacral region; M21.40 Flat foot [pes planus] (acquired), unspecified foot; F32.89 Other specified depressive episodes; I47.1 Supraventricular tachycardia; Z98.84 Bariatric surgery status; Z79.899 Other long term (current) drug therapy
CPT/HCPCS: 36415; 80053; 80061; 84436; 84443; 84481; 85025

== ENCOUNTER 2020-04-22 06:32 | Outpatient (RCR) | payer MEDICARE, SELFPAY ==
[2018-10-24 12:38] VITALS: BMI 54.1
[2020-04-22] MEDS: COVID-19 VACC, MRNA(PFIZER)/PF 30 MCG/0.3 ML SYRINGE IM (09:17)
[2020-05-13] MEDS: COVID-19 VACC, MRNA(PFIZER)/PF 30 MCG/0.3 ML SYRINGE IM (09:05)
== END 2020-04-22 23:59 ==
LOC: IMMUN 06:32
PROVIDERS: PCP Family Medicine; Referring Provider Family Medicine; Visit Provider Family Medicine
DX: Z23 Encounter for immunization (principal)
CPT/HCPCS: 0001A; 0002A

== ENCOUNTER → 2020-07-08 14:41 | Outpatient (CLI) | payer MEDICARE, SELFPAY ==
[2018-10-24 12:38] VITALS: BMI 54.1
--- NOTE | 2020-07-08 14:44 | RAD_ITS ---
STUDY: X-RAY CHEST REASON FOR EXAM: Female, 69 years old. SOB TECHNIQUE: PA and lateral views of the chest. COMPARISON: 2015 FINDINGS: The lungs are clear and expanded. There is no demonstrated pleural abnormality. Normal size heart. Normal mediastinum and denise. Normal visualized pulmonary arteries. Normal visualized aortic arch and descending thoracic aorta. Normal visualized thoracic spine. Degenerative arthrosis of the left shoulder. Replaced right glenohumeral joint free of complication There is no demonstrated abnormality of the visualized soft tissue structures of the upper abdomen. RAD/Chest PA and Lateral IMPRESSION: No acute pulmonary process Electronically Signed: Mike Swan MD at 15:05 EDT , Service support ,
[2020-07-08 17:30] LABS: Absolute Lymphocyte Count 3.18 X10^3/uL (0.83-4.51); Basophil# 0.06 X10^3/uL; Basophil% 0.8 % (0-1); Eosinophil# 0.22 X10^3/uL; Eosinophils% 3.1 % (0-5); Hematocrit 37.8 % (37-47); Hemoglobin 11.2 g/dL (12.0-15.0); Lymphocyte # 3.18 X10^3/ul (0.83-4.51); Lymphocyte % 44.9 % (19-41); Mean Corp Hgb Conc 29.6 g/dL (32-36); Mean Corpuscular Hgb 23.5 pg (27.0-32.0); Mean Corpuscular Volume 79.2 fL (81-99); Mean Platelet Vol. 9.7 fl (6.2-12.0); Monocyte# 0.64 X10^3/uL; NRBC Flagged by Analyzer 0 % (0-5); Neutrophil # 2.98 X10^3/uL (2.7-7.7); Neutrophil % 42.1 % (47-70); Platelet Count 321 K/mm3 (150-450); RBC Distribution Width CV 16.2 % (11.6-14.6); RBC Distribution Width SD 46.4 fl (35.1-43.9); Red Blood Count 4.77 M/mm3 (4.2-5.4); White Blood Count 7.1 K/mm3 (4.4-11.0)
[2020-07-08 17:47] LABS: D-Dimer Quantitative (DVT/PE) 0.83 FEU/ug/m (0.27-0.49)
[2020-07-08 18:07] LABS: ALB/GLOB Ratio 0.9 RATIO (0.9-2.4); AST(SGOT) 23 U/L (15-37); Alanine Aminotransfer ALT/SGPT 29 U/L (13-56); Albumin, Serum 3.4 g/dL (3.2-5.0); Alkaline Phosphatase 77 U/L (45-117); Anion Gap 6 (5-15); BUN 17 mg/dL (7-18); BUN/Creat Ratio 17.9 RATIO (10-20); Calcium,Total 8.9 mg/dL (8.5-10.1); Chloride 105 mmol/L (98-107); Creatinine, Serum 0.95 mg/dL (0.55-1.02); EST Glomerular Filtration Rate 62 mL/min (>60); Est Glom Filt Rate - Afr Amer 75 mL/min (>60); Globulin 3.9 g/dL (2.2-4.2); Glucose 76 mg/dL (74-106); Potassium 3.5 mmol/L (3.5-5.1); Protein, Total 7.3 g/dL (6.4-8.2); Sodium Level 139 mmol/L (136-145); Thyroid Stim Hormone (TSH) 1.06 uIU/mL (0.358-3.74)
== END ==
PROVIDERS: PCP Family Medicine; Referring Provider Family Medicine; Visit Provider Family Medicine
DX: R06.02 Shortness of breath (principal); R00.2 Palpitations
CPT/HCPCS: 36415; 71046; 80053; 83735; 83880; 84443; 85025; 85379

== ENCOUNTER 2020-07-09 11:31 | Emergency (ER) | payer MEDICARE, SELFPAY ==
[2018-10-24 12:38] VITALS: BMI 54.1
[2020-07-09 11:32] VITALS: BP 129/93; PULSE 78; RESP 15; TEMP 36.3; O2SAT 98; BMI 55.7
--- NOTE | 2020-07-09 11:53 | CT_ITS ---
STUDY: CTA CHEST REASON FOR EXAM: Female, 69 years old. Sob, elevated d-dimer RADIATION DOSAGE (If Supplied By Facility): CTDIvol = ( 17.415 ) mGy, DLP = ( 571.41 ) mGycm TECHNIQUE: The examination was performed with the intravenous administration of . Post-processing of the angiographic images was performed, with multiplanar reformation and 3D reconstruction. Individualized dose optimization techniques were used for this CT. COMPARISON: 11/29/2015 FINDINGS: Normal enhancement of the main pulmonary artery and right and left pulmonary arteries. Normal enhancement of the bilateral peripheral pulmonary arteries. There is no demonstrated pulmonary embolism. Normal thoracic aorta and visualized great vessels. There is no demonstrated aortic dissection. Normal heart and pericardium. There are calcifications of the coronary arteries. Normal mediastinum. Normal hilar regions. There is peribronchial thickening. The lungs are well expanded. No organized infiltrate, or suspicious groundglass opacifications. Chronic interstitial changes noted in both lung [place]. Stable noncalcified subcentimeter nodules are noted in the left lower lobe on axial image 121, and 131. Since these are unchanged compared to 2016, no specific follow-up is needed. Normal pleura. Normal chest wall structures. There are degenerative changes of thoracic spine. Limited cuts of the upper abdomen show postsurgical changes at the GE junction, no anastomotic leak noted CT/CTA Chest W/WO Contrast IMPRESSION: No demonstrated PE, or thoracic aortic aneurysm or dissection Chronic interstitial changes, no superimposed acute pulmonary process. Stable noncalcified nodules in the left lower lobe dating back to 2016. No specific follow-up needed Calcified coronary vessels Degenerative bony changes Electronically Signed: Mike Swan MD at 12:43 EDT , Service support ,
--- NOTE | 2020-07-09 11:54 | EX.ED.DYSGE1 ---
HPI History of Present Illness Chief Complaint: Shortness of Breath Informant: patient Onset/Context/Timing Onset: Weeks Context: Gradual Onset Timing: Waxes and wanes Current Severity: Mild Maximum Severity: Moderate Narrative Narrative: Patient presents secondary to elevated D-dimer. Patient notes increased shortness of breath of the past week and a half or so. She does have a history of asthma and states that she will typically get more short of breath in the spring secondary to grass and pollen. Earlier this week she had to stop a few times to rest while walking because of shortness of breath. She was seen by her PCP yesterday who got a chest x-ray, EKG, outpatient labs. D-dimer was elevated at 0.82. They were unable to get her preauthorized for a CT so was sent to the emergency room. She is scheduled for an echocardiogram this afternoon as well. She was started on Eliquis as a precaution last night. [facility] Medical History (Updated 07/09/20 @ 13:[address] Antionette Canseco MD) Allergic rhinitis Depression Diarrhea GERD (gastroesophageal reflux disease) Hypertension Hypothyroidism Insomnia Morbid obesity Rheumatoid arthritis Right rotator cuff tear Seizure disorder Vitamin B12 deficiency Vitamin D deficiency Wound infection after surgery Home Medications cholecalciferol (vitamin D3) 2,000 unit PO DAILY 11/29/15 [History Last Taken Unknown] cyanocobalamin (vitamin B-12) 1,000 mcg SL DAILY 11/29/15 [History Last Taken Unknown] fluticasone propionate 1 spray NASAL DAILY 11/29/15 [History Last Taken Unknown] levothyroxine 175 mcg PO DAILY 11/29/15 [History Last Taken 08/01/17 06:00] loperamide 2 mg PO DAILY PRN 11/29/15 [History Last Taken 01/26/17 05:00 2 MG] metoprolol tartrate 50 mg PO BID 11/29/15 [History Last Taken 08/01/17 06:00] nabumetone 1,000 mg PO DAILY 11/29/15 [History Last Taken Unknown] pantoprazole 40 mg PO DAILY 11/29/15 [History Last Taken 08/01/17 06:00] triamterene-hydrochlorothiazid 1 tab PO DAILY 11/29/15 [History Last Taken Unknown] albuterol sulfate 2 puff INHALATION Q6H PRN PRN 12/12/16 [History Last Taken Unknown] alendronate 70 mg PO Q7D@0700 12/12/16 [History Last Taken 12/16/16] duloxetine 60 mg PO DAILY 12/12/16 [History Last Taken Unknown] levetiracetam 1,000 mg PO DAILY 12/12/16 [History Last Taken 08/01/17 06:00] montelukast 10 mg PO DAILY 12/12/16 [History Last Taken Unknown] adalimumab 40 mg SQ FR 07/27/17 [History Last Taken Unknown] gabapentin 300 mg PO BID 07/27/17 [History Last Taken Unknown] Allergy/AdvReac Type Severity Reaction Status Date / Time adhesive tape Allergy Rash Verified 12/17/17 09:05 codeine Allergy Hives Verified 12/17/17 09:05 ALL PAIN MEDS Allergy Hives Uncoded 07/27/17 11:58 Family History Brother Colon cancer Lung cancer Mother Hypertension Thyroid disorder Father Ulcer Lung cancer Surgical History Cataract Encounter for incision and drainage procedure gallbladder H/O gastric bypass H/O: hysterectomy Hx of cataract surgery Hx of cholecystectomy Hx of hysterectomy S/P rotator cuff repair Status post reverse total replacement of right shoulder Social History Smoking Status: Never smoker second hand exposure: No alcohol intake: never substance use type: does not use caffeine: Yes seatbelt use: always ROS ROS ED Constitutional Constitutional ED: Denies chills or fever(s) Eyes Eyes: Denies change in vision ENT ENT ED: Denies sore throat Cardiovascular Cardiovascular: Denies chest pain Respiratory/Chest Respiratory/Chest: Reports dyspnea; Denies cough Gastrointestinal Gastrointestinal: Denies abdominal pain, diarrhea, nausea or vomiting Genitourinary Genitourinary ED: Denies dysuria Musculoskeletal Musculoskeletal: Denies back pain Integumentary Denies rash Neurologic Neurologic: Denies headache(s) or weakness Psychiatric Psychiatric: Denies anxiety or depression Endocrine Endocrinology: Denies polydipsia or polyuria Allergic/Immunologic Allergic/Immunologic ED: Denies urticaria EXAM Physical Exam Const Vital Signs: 07/09/20 11:32 07/09/20 12:10 Temperature 97.3 F L Temperature Source Temporal Pulse Rate 78 Respiratory Rate 15 Respiratory Effort Normal Non-Labored Respiratory Depth Normal Respiratory Pattern Normal Blood Pressure 129/93 H Blood Pressure Mean 105 Pulse Ox 98 Oxygen Delivery Method Room Air Room Air Positive well nourished and well developed General Appearance ED: well developed HEENT Reports normocephalic and head/scalp atraumatic Eyes PERRL and EOMs intact bilaterally Neck supple Chest Wall inspection of chest normal and palpation of chest normal Resp normal respiratory effort and clear to auscultation bilaterally Cardio regular rate and regular rhythm GI normal to inspection, nondistended, normoactive bowel sounds Palpation: soft Back/Spine no CVA tenderness Extremity normal to inspection Extremity Narrative: 1+ right lower extremity edema. Patient states this is chronic and unchanged from baseline. General Extremety ED: Yes edema General Extremity: edema Neuro oriented x3 and no sensory deficits noted Sensorium / Orientation: alert Motor Exam: strength 5/5 throughout Psych mental status grossly normal Skin no rashes or lesions noted MDM MDM MDM Narrative Medical decision making narrative: Lab work from yesterday is reviewed. IV line is established and patient is sent for a CTA of her chest. Radiography Diagnostic Testing: Radiology Impression Chest CTA 07/09/20 11:53 IMPRESSION: No demonstrated PE, or thoracic aortic aneurysm or dissection Chronic interstitial changes, no superimposed acute pulmonary process. Stable noncalcified nodules in the left lower lobe dating back to 2015. No specific follow-up needed Calcified coronary vessels Degenerative bony changes Electronically Signed: Mike Swan MD at 12:43 EDT , Service support , Treatment and Re-Evaluation Comments:: Test results discussed with patient and sister at bedside. I will speak with PCP to ensure they do not want her to continue the Eliquis. I anticipate this will be stopped and patient will be discharged to go to her echocardiogram appointment. Discharge Plan Triage Chief Complaint: Shortness of Breath ED Provider: Antionette Canseco Dx/Rx/DC Orders Clinical Impression: Acute dyspnea Instructions: ED Dyspnea Prescriptions: No Action levothyroxine 175 MCG tablet 175 mcg PO DAILY RF: 0 loperamide 2 MG capsule 2 mg PO DAILY PRN (Reason: Diarrhea) RF: 0 pantoprazole 40 MG tablet 40 mg PO DAILY RF: 0 metoprolol tartrate 50 MG tablet 50 mg PO BID RF: 0 triamterene-hydrochlorothiazid 1 EACH tablet 1 tab PO DAILY RF: 0 cyanocobalamin (vitamin B-12) 1,000 MCG tablet, sublingual 1,000 mcg SL DAILY RF: 0 fluticasone propionate 1 SPRAY spray,suspension 1 spray NASAL DAILY RF: 0 nabumetone 500 MG tablet 1,000 mg PO DAILY RF: 0 cholecalciferol (vitamin D3) 1,000 UNIT tablet 2,000 unit PO DAILY RF: 0 alendronate 70 MG tablet 70 mg PO Q7D@0700 RF: 0 montelukast 10 MG tablet 10 mg PO DAILY RF: 0 albuterol sulfate 1 INHALER inhaler 2 puff INHALATION Q6H PRN PRN (Reason: Asthma) RF: 0 duloxetine 60 MG capsule 60 mg PO DAILY RF: 0 levetiracetam 1,000 MG tablet for suspension 1,000 mg PO DAILY RF: 0 gabapentin 300 MG capsule 300 mg PO BID RF: 0 adalimumab 40 MG/0.8 ML syringe kit 40 mg SQ FR RF: 0 Primary Care Provider: David Chambers Referrals: David Chambers MD [Primary Care Provider] - 5-7 Days Disposition Disposition: Home, self care
[2020-07-09 12:10] VITALS: O2SAT 96
[2020-07-09 13:35] VITALS: BP 125/76; PULSE 76; RESP 22; O2SAT 96
--- NOTE | 2020-07-09 13:36 | ED.RN ---
THIS NURSE REVIEWED D/C INSTRUCTIONS WITH PT.PT VERBALIZED UNDERSTANDING OF INSTRUCTIONS. IV D/C. IV CATHETER INTACT. PT TOLERATED WELL. PT DENIES FURTHER NEEDS OR QUESTIONS AT THIS TIME
== END 2020-07-09 13:36 | disposition home or self-care (01) ==
PROVIDERS: Emergency Provider Emergency Medicine; PCP Family Medicine
DX: R06.00 Dyspnea, unspecified (principal); F32.9 Major depressive disorder, single episode, unspecified; K21.9 Gastro-esophageal reflux disease without esophagitis; I10 Essential (primary) hypertension; E03.9 Hypothyroidism, unspecified; E66.9 Obesity, unspecified; M06.9 Rheumatoid arthritis, unspecified; Z79.51 Long term (current) use of inhaled steroids; Z79.899 Other long term (current) drug therapy
CPT/HCPCS: 71275; 99284; Q9967; A4216

== ENCOUNTER → 2020-07-09 13:40 | Outpatient (CLI) | payer MEDICARE, SELFPAY ==
[2018-10-24 12:38] VITALS: BMI 54.1
[2020-07-09 11:32] VITALS: BMI 55.7
--- NOTE | 2020-07-09 13:45 | RAD_ITS ---
STUDY: X-RAY CHEST REASON FOR EXAM: Female, 69 years old. Worsening shortness of breath TECHNIQUE: PA and lateral views of the chest. COMPARISON: Yesterday FINDINGS: The lungs are clear and expanded. There is no demonstrated pleural abnormality. Normal size heart. Normal mediastinum and denise. Normal visualized pulmonary arteries. Normal visualized aortic arch and descending thoracic aorta. There are diffuse degenerative changes of the visualized thoracic spine. Replaced right glenohumeral joint free of complication There is no demonstrated abnormality of the visualized soft tissue structures of the upper abdomen. RAD/Chest PA and Lateral IMPRESSION: No acute pulmonary process, no interval change Electronically Signed: Mike Swan MD at 13:58 EDT , Service support ,
--- NOTE | 2020-07-09 13:45 | ECHOCS_ITS ---
Reason For Study: Palpitations Procedure This was a 2D Doppler, Color Flow transthoracic echocardiogram. Technically difficult due to patients body habitus. Contrast injection performed to help enhance image quality. Exam performed in department. Left Ventricle Normal LV size. The estimated ejection fraction is 65 %. No evidence for diastolic dysfunction. No regional wall motion abnormalities noted. Right Ventricle Normal RV size. Normal systolic function. Atria Normal left atrium. Normal right atrium. No doppler evidence for ASD. Mitral Valve There is no mitral valve stenosis. No mitral valve insufficiency. Tricuspid Valve There is no tricuspid stenosis. Trivial tricuspid valve insufficiency. Unable to estimate RV systolic pressure due to insufficient tricuspid regurgitant envelope. Aortic Valve Trisinus/trileaflet aortic valve. There is no aortic stenosis. No aortic valve insufficiency. Pulmonic Valve There is no pulmonic valvular stenosis. No pulmonic valve insufficiency. Great Vessels Normal aortic root. Pericardium/Pleural No pericardial effusion. Medication 22 gauge I.V. with prn adaptor inserted into left arm. Diluted definity 7ml given slow IV push to enhance endocardial definition. MMode/2D Measurements & Calculations LVIDd: 4.4 cm IVSd: 1.4 cm Ao root diam: 3.9 cm LVIDs: 2.9 cm LVPWd: 1.6 cm LA dimension: 4.2 cm FS: 34.0 % LAV(MOD-bp): 68.6 ml LA A4 area: 22.5 cm2 LAV(MOD-bp) Indexed: 28.5 ml/m2 LAV(MOD-sp2): 62.0 ml LAV(MOD-sp4): 74.1 ml Time Measurements MV dec time: 0.27 sec Doppler Measurements & Calculations MV E max timothy: 58.2 cm/sec Lat Peak E' Timothy: 6.9 cm/sec Med Peak E' Timothy: 7.0 cm/sec MV A max timothy: 93.1 cm/sec E/E' lat: 8.4 E/E' med: 8.3 MV E/A: 0.63 MV V2 max: 94.5 cm/sec MV P1/2t max timothy: 67.3 cm/sec Ao V2 max: 153.4 cm/sec MV max P.6 mmHg MV P1/2t: 86.0 msec Ao max P.4 mmHg MV V2 mean: 46.2 cm/sec MV dec slope: 229.3 cm/sec2 MV mean P.0 mmHg MV V2 VTI: 28.1 cm MVA(P1/2t): 2.6 cm2 LV V1 max: 106.0 cm/sec MR max timothy: 570.2 cm/sec PA V2 max: 97.3 cm/sec LV V1 max P.5 mmHg MR max P.1 mmHg MR mean timothy: 430.0 cm/sec MR mean P.7 mmHg MR VTI: 234.5 cm ECHO/Echo Complete W/ Contrast Interpretation Summary The estimated ejection fraction is 65 %. No evidence for diastolic dysfunction. The study was technically difficult. Contrast injection was performed. Ordering Physician: Matt Nuno Referring Physician: Matt Nuno Performed By: Frank Brown RCS
== END ==
PROVIDERS: PCP Family Medicine; Referring Provider Family Medicine; Visit Provider Family Medicine
DX: R06.02 Shortness of breath (principal); R00.2 Palpitations; R06.00 Dyspnea, unspecified; F32.9 Major depressive disorder, single episode, unspecified; K21.9 Gastro-esophageal reflux disease without esophagitis; I10 Essential (primary) hypertension; E03.9 Hypothyroidism, unspecified; E66.9 Obesity, unspecified; M06.9 Rheumatoid arthritis, unspecified; Z79.51 Long term (current) use of inhaled steroids; Z79.899 Other long term (current) drug therapy
CPT/HCPCS: 71046; 71275; 93306; 99284; Q9957; Q9967; A4216; C8929; J3490

== ENCOUNTER → 2020-07-27 13:47 | Outpatient (CLI) | payer MEDICARE, SELFPAY ==
[2020-07-09 11:32] VITALS: BMI 55.7
[2020-07-27 15:00] LABS: Absolute Lymphocyte Count 3.15 X10^3/uL (0.83-4.51); Absolute Neutrophil Count 3.8 X10^3/uL (2.0-7.7); Basophil# 0.08 X10^3/uL; Eosinophil# 0.23 X10^3/uL; Eosinophils% 2.9 % (0-5); Lymphocyte # 3.15 X10^3/ul (0.83-4.51); Mean Corp Hgb Conc 29.7 g/dL (32-36); Mean Corpuscular Hgb 23.3 pg (27.0-32.0); Mean Corpuscular Volume 78.2 fL (81-99); Mean Platelet Vol. 9.2 fl (6.2-12.0); Monocyte# 0.61 X10^3/uL; Monocyte% 7.7 % (0-10); NRBC Flagged by Analyzer 0 % (0-5); Neutrophil % 48.3 % (47-70); Platelet Count 316 K/mm3 (150-450); RBC Distribution Width CV 16.2 % (11.6-14.6); Red Blood Count 4.73 M/mm3 (4.2-5.4); White Blood Count 7.9 K/mm3 (4.4-11.0)
[2020-07-27 15:41] LABS: Anion Gap 5 (5-15); BUN 16 mg/dL (7-18); BUN/Creat Ratio 17.4 RATIO (10-20); Calcium,Total 8.6 mg/dL (8.5-10.1); Chloride 106 mmol/L (98-107); Creatinine, Serum 0.92 mg/dL (0.55-1.02); EST Glomerular Filtration Rate 65 mL/min (>60); Est Glom Filt Rate - Afr Amer 78 mL/min (>60); Glucose 77 mg/dL (74-106); Potassium 3.8 mmol/L (3.5-5.1); Sodium Level 141 mmol/L (136-145)
[2020-07-31 10:01] LABS: KEPPRA (LEVETIRACETAM) 19.4 ug/mL (10.0-40.0)
== END ==
PROVIDERS: PCP Family Medicine; Referring Provider Nurse Practitioner Family; Visit Provider Nurse Practitioner Family
DX: I47.1 Supraventricular tachycardia (principal)
CPT/HCPCS: 36415; 80048; 80177; 85025

== ENCOUNTER → 2020-08-24 13:22 | Outpatient (CLI) | payer MEDICARE, SELFPAY ==
[2018-10-24 12:38] VITALS: BMI 54.1
[2020-08-24 15:12] LABS: Absolute Lymphocyte Count 3.44 X10^3/uL (0.83-4.51); Absolute Neutrophil Count 3.5 X10^3/uL (2.0-7.7); Basophil% 1.3 % (0-1); Eosinophil# 0.19 X10^3/uL; Eosinophils% 2.4 % (0-5); Hematocrit 35.9 % (37-47); Hemoglobin 10.8 g/dL (12.0-15.0); Lymphocyte # 3.44 X10^3/ul (0.83-4.51); Lymphocyte % 43.5 % (19-41); Mean Corp Hgb Conc 30.1 g/dL (32-36); Mean Corpuscular Hgb 22.9 pg (27.0-32.0); Mean Corpuscular Volume 76.2 fL (81-99); Mean Platelet Vol. 9.6 fl (6.2-12.0); Monocyte# 0.63 X10^3/uL; NRBC Flagged by Analyzer 0 % (0-5); Neutrophil # 3.52 X10^3/uL (2.7-7.7); Neutrophil % 44.5 % (47-70); Platelet Count 324 K/mm3 (150-450); RBC Distribution Width CV 16.1 % (11.6-14.6); RBC Distribution Width SD 44.2 fl (35.1-43.9); Red Blood Count 4.71 M/mm3 (4.2-5.4); White Blood Count 7.9 K/mm3 (4.4-11.0)
[2020-08-24 15:31] LABS: ALB/GLOB Ratio 0.9 RATIO (0.9-2.4); AST(SGOT) 30 U/L (15-37); Alanine Aminotransfer ALT/SGPT 35 U/L (13-56); Albumin, Serum 3.3 g/dL (3.2-5.0); Alkaline Phosphatase 70 U/L (45-117); Anion Gap 6 (5-15); BUN 15 mg/dL (7-18); BUN/Creat Ratio 16.4 RATIO (10-20); Calcium,Total 8.6 mg/dL (8.5-10.1); Chloride 104 mmol/L (98-107); Creatinine, Serum 0.92 mg/dL (0.55-1.02); EST Glomerular Filtration Rate 65 mL/min (>60); Est Glom Filt Rate - Afr Amer 79 mL/min (>60); Globulin 3.8 g/dL (2.2-4.2); Glucose 82 mg/dL (74-106); Potassium 4.1 mmol/L (3.5-5.1); Protein, Total 7.1 g/dL (6.4-8.2); Sodium Level 138 mmol/L (136-145)
== END ==
PROVIDERS: PCP Family Medicine; Referring Provider Internal Medicine Rheumatology; Visit Provider Internal Medicine Rheumatology
DX: M06.09 Rheumatoid arthritis without rheumatoid factor, multiple sites (principal); M79.7 Fibromyalgia; M17.0 Bilateral primary osteoarthritis of knee; M47.897 Other spondylosis, lumbosacral region; M21.40 Flat foot [pes planus] (acquired), unspecified foot; F32.89 Other specified depressive episodes; I10 Essential (primary) hypertension; E03.9 Hypothyroidism, unspecified; I47.1 Supraventricular tachycardia; Z98.84 Bariatric surgery status; Z79.899 Other long term (current) drug therapy
CPT/HCPCS: 36415; 80053; 85025

== ENCOUNTER → 2020-10-18 16:49 | Outpatient (CLI) | payer MEDICARE, SELFPAY ==
[2020-10-18 19:01] LABS: CRP < 2.90 mg/L (0.0-3.0)
[2020-10-20 16:08] LABS: Endomysial Antibody IgA Negative (Negative)
[2020-10-20 16:35] LABS: Immunoglobulin A 203 mg/dL (87-352); t-Transglutaminase IgA <2 U/mL (0-3)
== END ==
PROVIDERS: PCP Family Medicine; Referring Provider Internal Medicine Gastroenterology; Visit Provider Internal Medicine Gastroenterology
DX: R19.7 Diarrhea, unspecified (principal)
CPT/HCPCS: 36415; 82784; 83516; 86140; 86255

== ENCOUNTER → 2021-01-31 | Outpatient (CLI) | payer MEDICARE, SELFPAY | END | disposition home or self-care (01) | PROVIDERS: PCP Family Medicine; Referring Provider Family Medicine; Visit Provider Family Medicine | DX: R68.89 Other general symptoms and signs (principal) | CPT/HCPCS: 87633; 87635; U0005; U0003 ==

== ENCOUNTER 2021-02-23 15:52 | Outpatient (CLI) | payer MEDICARE, SELFPAY ==
[2021-02-23 17:41] LABS: Absolute Lymphocyte Count 3.19 X10^3/uL (0.83-4.51); Absolute Neutrophil Count 4.5 X10^3/uL (2.0-7.7); Basophil# 0.08 X10^3/uL; Basophil% 0.9 % (0-1); Eosinophil# 0.22 X10^3/uL; Eosinophils% 2.5 % (0-5); Lymphocyte # 3.19 X10^3/ul (0.83-4.51); Mean Corp Hgb Conc 29.7 g/dL (32-36); Mean Corpuscular Hgb 22.4 pg (27.0-32.0); Mean Corpuscular Volume 75.5 fL (81-99); Mean Platelet Vol. 9.8 fl (6.2-12.0); Monocyte# 0.89 X10^3/uL; NRBC Flagged by Analyzer 0 % (0-5); Neutrophil # 4.48 X10^3/uL (2.7-7.7); Neutrophil % 50.5 % (47-70); Platelet Count 342 K/mm3 (150-450); RBC Distribution Width CV 17.8 % (11.6-14.6); RBC Distribution Width SD 48.4 fl (35.1-43.9); White Blood Count 8.9 K/mm3 (4.4-11.0)
[2021-02-23 18:10] LABS: ALB/GLOB Ratio 0.8 RATIO (0.9-2.4); AST(SGOT) 22 U/L (15-37); Alanine Aminotransfer ALT/SGPT 34 U/L (13-56); Albumin, Serum 3.2 g/dL (3.2-5.0); Alkaline Phosphatase 87 U/L (45-117); Anion Gap 6 (5-15); BUN 23 mg/dL (7-18); BUN/Creat Ratio 16.4 RATIO (10-20); Calcium,Total 8.7 mg/dL (8.5-10.1); Chloride 106 mmol/L (98-107); EST Glomerular Filtration Rate 40 mL/min (>60); Est Glom Filt Rate - Afr Amer 48 mL/min (>60); Globulin 3.9 g/dL (2.2-4.2); Glucose 72 mg/dL (74-106); Potassium 4.2 mmol/L (3.5-5.1); Protein, Total 7.1 g/dL (6.4-8.2); Sodium Level 140 mmol/L (136-145)
== END 2021-02-23 23:59 | disposition short-term general hospital (02) ==
LOC: MTLAB 15:54
PROVIDERS: PCP Family Medicine; Referring Provider Internal Medicine Rheumatology; Visit Provider Internal Medicine Rheumatology
DX: M06.09 Rheumatoid arthritis without rheumatoid factor, multiple sites (principal); Z79.899 Other long term (current) drug therapy; M79.7 Fibromyalgia; M17.0 Bilateral primary osteoarthritis of knee; M47.897 Other spondylosis, lumbosacral region; M21.40 Flat foot [pes planus] (acquired), unspecified foot
CPT/HCPCS: 36415; 80053; 85025

== ENCOUNTER 2021-05-04 11:28 | Outpatient (CLI) | payer MEDICARE, SELFPAY ==
--- NOTE | 2021-05-04 11:31 | RAD_ITS ---
STUDY: X-RAY - PELVIS AND RIGHT HIP REASON FOR EXAM: Female, 70 years old. Fall. Pain. TECHNIQUE: 3 views of the pelvis and hip. COMPARISON: 12/22/2016 FINDINGS: There is a non-specific bowel gas pattern. Stable pelvic clips and clips projected over the right groin. Stable osteopenia. Normal bilateral iliac wings, sacroiliac joints and visualized sacrum. Normal bilateral superior and inferior pubic rami. Normal pubic symphysis. Normal bilateral ischial tuberosities. Mild arthrosis of both hips, unchanged. RAD/HIP, UNI W/ Pelvis 2-3 Views IMPRESSION: Stable osteopenia with mild osteoarthritic changes. No acute osseous abnormality. Electronically Signed: Michael Rowell MD at 11:47 EDT ,
== END 2021-05-04 23:59 | disposition home or self-care (01) ==
LOC: MTRAD 11:29
PROVIDERS: PCP Family Medicine; Referring Provider Nurse Practitioner Family; Visit Provider Nurse Practitioner Family
DX: M25.551 Pain in right hip (principal)
CPT/HCPCS: 73502

== ENCOUNTER 2021-05-23 10:25 | Outpatient (CLI) | payer MEDICARE, SELFPAY ==
[2021-05-23 12:08] LABS: Absolute Lymphocyte Count 2.78 X10^3/uL (0.83-4.51); Absolute Neutrophil Count 3.8 X10^3/uL (2.0-7.7); Basophil# 0.07 X10^3/uL; Basophil% 0.9 % (0-1); Eosinophil# 0.25 X10^3/uL; Eosinophils% 3.3 % (0-5); Hematocrit 35.7 % (37-47); Hemoglobin 10.3 g/dL (12.0-15.0); Lymphocyte # 2.78 X10^3/ul (0.83-4.51); Lymphocyte % 36.9 % (19-41); Mean Corp Hgb Conc 28.9 g/dL (32-36); Mean Corpuscular Hgb 21.5 pg (27.0-32.0); Mean Corpuscular Volume 74.4 fL (81-99); Mean Platelet Vol. 9.6 fl (6.2-12.0); Monocyte# 0.63 X10^3/uL; Monocyte% 8.4 % (0-10); NRBC Flagged by Analyzer 0 % (0-5); Neutrophil # 3.77 X10^3/uL (2.7-7.7); Neutrophil % 50.1 % (47-70); Platelet Count 391 K/mm3 (150-450); RBC Distribution Width CV 16.8 % (11.6-14.6); RBC Distribution Width SD 44.2 fl (35.1-43.9); White Blood Count 7.5 K/mm3 (4.4-11.0)
[2021-05-23 12:27] LABS: ALB/GLOB Ratio 0.8 RATIO (0.9-2.4); AST(SGOT) 20 U/L (15-37); Alanine Aminotransfer ALT/SGPT 34 U/L (13-56); Albumin, Serum 3.2 g/dL (3.2-5.0); Alkaline Phosphatase 74 U/L (45-117); Anion Gap 6 (5-15); BUN 18 mg/dL (7-18); BUN/Creat Ratio 19.7 RATIO (10-20); Calcium,Total 8.7 mg/dL (8.5-10.1); Chloride 106 mmol/L (98-107); Creatinine, Serum 0.91 mg/dL (0.55-1.02); EST Glomerular Filtration Rate 65 mL/min (>60); Est Glom Filt Rate - Afr Amer 79 mL/min (>60); Glucose 120 mg/dL (74-106); Potassium 3.5 mmol/L (3.5-5.1); Protein, Total 7.2 g/dL (6.4-8.2); Sodium Level 139 mmol/L (136-145)
== END 2021-05-23 23:59 | disposition home or self-care (01) ==
LOC: MTLAB 10:26
PROVIDERS: PCP Family Medicine; Referring Provider Internal Medicine Rheumatology; Visit Provider Internal Medicine Rheumatology
DX: M79.7 Fibromyalgia (principal); I47.1 Supraventricular tachycardia; M17.0 Bilateral primary osteoarthritis of knee; M47.897 Other spondylosis, lumbosacral region; M21.40 Flat foot [pes planus] (acquired), unspecified foot; F32.89 Other specified depressive episodes; I10 Essential (primary) hypertension; E03.9 Hypothyroidism, unspecified; Z98.84 Bariatric surgery status; Z79.899 Other long term (current) drug therapy
CPT/HCPCS: 36415; 80053; 85025

== ENCOUNTER → 2021-06-21 | Outpatient (CLI) | payer MEDICARE, SELFPAY ==
--- NOTE | 2021-06-22 07:03 | PFT ---
INTRODUCTION: The patient is a 70-year-old female that presents for pulmonary function studies secondary to a diagnosis of shortness of breath. Respiratory therapy reported good patient effort. Bronchodilators were used during testing. INTERPRETATION: Forced expiration spirometry demonstrates no evidence of a large airways obstructive ventilatory defect. There was no significant response to aerosolized bronchodilators. Spirograms are of good quality and plateau normally. Body plethysmography was performed and reveals lung volumes to be within normal limits. Diffusing capacity by single breath CO is reduced at 41% of predicted. IMPRESSION: Isolated moderate reduction in diffusing capacity.
== END | disposition home or self-care (01) ==
LOC: PSN 12:34
PROVIDERS: PCP Family Medicine; Referring Provider Internal Medicine Critical Care Medicine; Visit Provider Internal Medicine Critical Care Medicine
DX: R06.02 Shortness of breath (principal)
CPT/HCPCS: 94060; 94726; 94729

== ENCOUNTER → 2021-06-23 | Outpatient (CLI) | payer MEDICARE, SELFPAY ==
[2021-06-23 13:58] VITALS: PULSE 79; PULSE 82; PULSE 85; PULSE 87; PULSE 90; PULSE 91; PULSE 92; PULSE 94; O2SAT 93; O2SAT 94; O2SAT 96; O2SAT 97; O2SAT 98
--- NOTE | 2021-06-24 08:04 | PCM.PSN.6M ---
PSN 6 Minute Walk Test 6 Minute Walk Test 6 Minute Walk Test: 6 Minute Walk Test PSN:6-Minute Walk Test Start: 06/23/21 13:58 Freq: Status: Active Protocol: RESP.6MINW Document 06/23/21 13:58 BIRGIT (Rec: 06/23/21 14:01 BIRGIT [id number]) 6 Minute Walk Test Date Performed 06/23/21 Time Performed 13:45 Height 5 ft 3 in Weight: 142.882 kg Weight in Pounds 315.[address]: Blayne Estevez Assistive device used: Walker Pre-test Oxygen Delivery Method Room Air Pulse Ox (%) 98 Pulse Rate (60-100 beats/min) 82 Dyspnea Mary Scale (0-10) 0 Exertion Mary Scale (6-20) 6 1st minute Oxygen Delivery Method Room Air Pulse Ox (%) 96 Pulse Rate (60-100 beats/min) 85 2nd minute Oxygen Delivery Method Room Air Pulse Ox (%) 94 Pulse Rate (60-100 beats/min) 87 3rd minute Oxygen Delivery Method Room Air Pulse Ox (%) 93 Pulse Rate (60-100 beats/min) 91 Number of Rests Taken 1 4th minute Oxygen Delivery Method Room Air Pulse Ox (%) 93 Pulse Rate (60-100 beats/min) 90 5th minute Oxygen Delivery Method Room Air Pulse Ox (%) 97 Pulse Rate (60-100 beats/min) 94 6th minute Oxygen Delivery Method Room Air Pulse Ox (%) 96 Pulse Rate (60-100 beats/min) 92 Dyspnea Mary Scale (0-10) 3 Exertion Mary Scale (6-20) 14 Post-test Oxygen Delivery Method Room Air Pulse Ox (%) 98 Pulse Rate (60-100 beats/min) 79 Full Laps Walked 8 Partial Lap, Number of Tiles Walked 10 Total Distance Walked (ft) 482 Interpretation Interpretation: The patient ambulated 482 feet over the course of 6 minutes beginning on room air with the use of a walker. Pretesting oxygen saturation was noted to be 98% on room air. With ambulation, the [place] oxygen saturation was 93%. This testing indicated the presence of impaired walk distance and significant exertional oxygen desaturation. Recommendations Recommendations: There is no indication for the use of supplemental oxygen at this time. However, close interval follow-up is recommended, given the degree of oxygen desaturation noted during this study.
== END | disposition home or self-care (01) ==
LOC: PSN 13:37
PROVIDERS: PCP Family Medicine; Referring Provider Internal Medicine Critical Care Medicine; Visit Provider Internal Medicine Critical Care Medicine
DX: R06.02 Shortness of breath (principal)
CPT/HCPCS: 94618

== ENCOUNTER → 2021-07-14 | Outpatient (CLI) | payer MEDICARE, SELFPAY ==
--- NOTE | 2021-07-14 14:32 | CT_ITS ---
STUDY: CT Chest W/O Contrast Injection 07/14/2021 6:00 PM REASON FOR EXAM: Female, 70 years old. pulmonary fibrosis -- high resolution Individualized dose optimization techniques were used for this CT. TECHNIQUE: Transaxial imaging was performed withoutIV contrast material. COMPARISON: 07.09.20. FINDINGS: There is severe degenerative changes of the shoulder on the left. There is no pneumothorax. There is no demonstrated pleural abnormality. Right Total shoulder arthroplasty. There is a 10 mm right middle lobe nodule. SE:2 IM: 48. There are calcifications of the coronary arteries. Normal mediastinum. Normal hilar regions. Normal pulmonary arteries. There is atherosclerotic calcification of the aortic arch with tortuosity and elongation of the aortic arch and descending thoracic aorta. There are multi-level degenerative changes of the thoracic spine. There are multiple surgical clips around the stomach. There are also anastomotic sutures around the stomach and altered gastrointestinal anatomy. This is consistent for prior gastric surgery (this may include sleeve, Terell, or gastric bypass and other types of gastric surgery). CT/Chest without Contrast IMPRESSION: There is severe degenerative changes of the shoulder on the left. There are no acute findings. No evidence for pulmonary fibrosis. There are coronary arterial calcifications. Electronically Signed: Giorgi Null MD at 18:03 EDT ,
== END | disposition home or self-care (01) ==
LOC: CT 14:30
PROVIDERS: PCP Family Medicine; Referring Provider Nurse Practitioner Acute Care; Visit Provider Nurse Practitioner Acute Care
DX: R06.02 Shortness of breath (principal)
CPT/HCPCS: 71250

== ENCOUNTER → 2021-07-27 | Outpatient (CLI) | payer MEDICARE, SELFPAY | END | disposition home or self-care (01) | LOC: SL 21:56 | PROVIDERS: PCP Family Medicine; Referring Provider Nurse Practitioner Acute Care; Visit Provider Nurse Practitioner Acute Care | DX: G47.33 Obstructive sleep apnea (adult) (pediatric) (principal) | CPT/HCPCS: 95811 ==

== ENCOUNTER → 2021-08-26 | Outpatient (CLI) | payer MEDICARE, SELFPAY | END | disposition home or self-care (01) | PROVIDERS: PCP Family Medicine; Visit Provider Family Medicine | DX: Z20.822 Contact with and (suspected) exposure to COVID-19 (principal) | CPT/HCPCS: 87635; U0003; U0005 ==

== ENCOUNTER → 2021-09-12 | Outpatient (CLI) | payer MEDICARE, SELFPAY ==
--- NOTE | 2021-09-12 15:59 | RAD_ITS ---
EXAM: XR CHEST, 2 VIEWS CLINICAL INDICATION: cough TECHNIQUE: Frontal and lateral views of the chest. This report was created using [employer] report generation technology. COMPARISON: 07/09/2020 FINDINGS: LUNGS AND PLEURAL SPACES: Unremarkable. No consolidation or edema. No pneumothorax. No effusion. HEART: Unremarkable. Cardiac silhouette not enlarged. MEDIASTINUM: Central airways and mediastinal contour are unremarkable. BONES/JOINTS: Right shoulder arthroplasty. Degenerative changes of the spine. SOFT TISSUES: Unremarkable. RAD/Chest PA and Lateral IMPRESSION: No acute findings in the chest. Electronically Signed: Giorgi Newton MD at 0:16 EDT ,
== END | disposition home or self-care (01) ==
LOC: MTRAD 15:58
PROVIDERS: PCP Family Medicine; Referring Provider Family Medicine; Visit Provider Family Medicine
DX: R05.9 Cough, unspecified (principal); Z20.822 Contact with and (suspected) exposure to COVID-19
CPT/HCPCS: 71046; 87635; U0003; U0005

== ENCOUNTER → 2021-11-16 | Outpatient (CLI) | payer MEDICARE, SELFPAY ==
[2021-11-16 12:40] LABS: Absolute Lymphocyte Count 2.87 X10^3/uL (0.83-4.51); Absolute Neutrophil Count 3.6 X10^3/uL (2.0-7.7); Basophil# 0.06 X10^3/uL; Basophil% 0.8 % (0-1); Eosinophil# 0.26 X10^3/uL; Eosinophils% 3.5 % (0-5); Hematocrit 38.9 % (37-47); Hemoglobin 11.8 g/dL (12.0-15.0); Lymphocyte # 2.87 X10^3/ul (0.83-4.51); Lymphocyte % 38.6 % (19-41); Mean Corp Hgb Conc 30.3 g/dL (32-36); Mean Corpuscular Hgb 25.4 pg (27.0-32.0); Mean Corpuscular Volume 83.7 fL (81-99); Mean Platelet Vol. 9.7 fl (6.2-12.0); Monocyte# 0.61 X10^3/uL; Monocyte% 8.2 % (0-10); NRBC Flagged by Analyzer 0 % (0-5); Neutrophil # 3.61 X10^3/uL (2.7-7.7); Neutrophil % 48.6 % (47-70); Platelet Count 272 K/mm3 (150-450); RBC Distribution Width CV 16.4 % (11.6-14.6); RBC Distribution Width SD 49.5 fl (35.1-43.9); Red Blood Count 4.65 M/mm3 (4.2-5.4); White Blood Count 7.4 K/mm3 (4.4-11.0)
[2021-11-16 12:58] LABS: ALB/GLOB Ratio 0.9 RATIO (0.9-2.4); AST(SGOT) 23 U/L (15-37); Alanine Aminotransfer ALT/SGPT 35 U/L (13-56); Albumin, Serum 3.2 g/dL (3.2-5.0); Alkaline Phosphatase 70 U/L (45-117); Anion Gap 3 (5-15); BUN 16 mg/dL (7-18); BUN/Creat Ratio 17.1 RATIO (10-20); Chloride 109 mmol/L (98-107); Creatinine, Serum 0.94 mg/dL (0.55-1.02); EST Glomerular Filtration Rate 63 mL/min (>60); Est Glom Filt Rate - Afr Amer 76 mL/min (>60); Globulin 3.5 g/dL (2.2-4.2); Glucose 97 mg/dL (74-106); Potassium 3.9 mmol/L (3.5-5.1); Protein, Total 6.7 g/dL (6.4-8.2); Sodium Level 143 mmol/L (136-145)
== END | disposition home or self-care (01) ==
LOC: MTLAB 10:34
PROVIDERS: PCP Family Medicine; Referring Provider Internal Medicine Rheumatology; Visit Provider Internal Medicine Rheumatology
DX: M06.09 Rheumatoid arthritis without rheumatoid factor, multiple sites (principal); I47.1 Supraventricular tachycardia; M79.7 Fibromyalgia; M17.0 Bilateral primary osteoarthritis of knee; M47.897 Other spondylosis, lumbosacral region; M21.40 Flat foot [pes planus] (acquired), unspecified foot; I10 Essential (primary) hypertension; F32.89 Other specified depressive episodes; E03.9 Hypothyroidism, unspecified; Z79.899 Other long term (current) drug therapy; Z98.84 Bariatric surgery status
CPT/HCPCS: 36415; 80053; 85025

== ENCOUNTER → 2022-02-02 | Outpatient (CLI) | payer MEDICARE, SELFPAY ==
--- NOTE | 2022-02-02 08:31 | BI_ITS ---
MAMMOGRAPHY - BILATERAL SCREENING REASON FOR EXAM: Female, 71 years old. Routine annual screening examination. PERTINENT HISTORY: Non-contributory. History of prior uterine cancer. TECHNIQUE: Digital bilateral breast luzmaria (3D mammographic acquisition) in the CC and MLO projections. 2-D mediolateral oblique (MLO) and craniocaudad (CC) views of both breasts were obtained. CAD: Full Field Digital Mammography with Computer Added Detection was performed. COMPARISON: Comparison is made with prior study 07/02/2018 and 09/20/2016. FINDINGS: Breast Composition: The breasts are almost entirely fatty. There are no dominant masses or suspicious calcifications. Stable small calcified nodular density in the central portion of the left breast. No other significant abnormalities are identified. There has been no significant change since the prior study. BI/SCRN MAMM (CAD)W/LUZMARIA BILAT IMPRESSION: Stable bilateral screening mammogram. Yearly follow-up mammogram recommended. (A) ASSESSMENT CATEGORY: BIRADS Category 2: Benign. A letter regarding these results will be sent to the patient by the facility within 30 days. Approximately 10% of breast cancers are not detected by mammography. A normal mammogram should not delay biopsy of a clinically suspicious abnormality. [id number] Electronically Signed: Tex Harvey MD at 13:30 EST ,
--- NOTE | 2022-02-02 08:38 | BD_ITS ---
STUDY: DUAL ENERGY X-RAY ABSORPTIOMETRY / DXA REASON FOR EXAM: Female, 71 years old. M810 TECHNIQUE: Bone Mineral Density (BMD) measurements of lumbar spine and bilateral hips were obtained. COMPARISON: Comparison is made with prior study dated 10/22/2018. FINDINGS: Lumbar Spine (L1-L4): g/cm2 (1.140) / T-score (0.8) / Z-score (2.9) Findings are suggestive of normal bone density with a low fracture risk. Left Femur Total: g/cm2 (0.843) / T-score (-0.8) / Z-score (0.6) Left Femoral Neck: g/cm2 (0.656) / T-score (-1.7) / Z-score (0.0) Right Femur Total: g/cm2 (0.754) / T-score (-1.5) / Z-score (-0.1) Right Femoral Neck: g/cm2 (0.767) / T-score (-0.7) / Z-score (1.0) The T-Scores on the most recent prior examination were: Lumbar Spine (L1-L4): There has been worsening of bone density since the previous examination. Left Femur Total: which represents an improvement of 6.7%. Right Femur Total: which represents a worsening of 5.9%. BD/Dexa Bone Density Study IMPRESSION: The patient is considered osteopenic as outlined below according to World Mario Alberto Organization (WHO) criteria with a moderate fracture risk. There has been worsening of bone density since the previous examination. Reference Information: The T-score is the number of standard deviations above or below the standard which is normal for young adults at their peak bone mineral density. The World Health Organization (WHO) interprets the T-scores as follows: Above -1 Normal bone density Between -1 and -2.5 Osteopenia Equal to / or below -2.5 Osteoporosis As a practical clinical guideline, osteopenia may be graded as follows: Mild -1 through -1.5 Moderate -1.6 through -2.0 Severe -2.1 through -2.4 The Z-score is the number of standard deviations above or below age-matched controls. A Z-score of less than -1.5 would be considered abnormal. References: 1. NIH Osteoporosis and Related Bone Diseases www osteo.org 2. International Society for Clinical Densitometry www iscd.org 3. National Osteoporosis Foundation www nof.org Electronically Signed: Tex Harvey MD at 15:36 EST ,
== END | disposition home or self-care (01) ==
LOC: OPBD 08:29
PROVIDERS: PCP Family Medicine; Visit Provider Nurse Practitioner Family
DX: Z12.31 Encounter for screening mammogram for malignant neoplasm of breast (principal); M81.0 Age-related osteoporosis without current pathological fracture
CPT/HCPCS: 77063; 77067; 77080

== ENCOUNTER → 2022-04-26 | Outpatient (CLI) | payer MEDICARE, SELFPAY ==
[2022-04-26 12:59] LABS: Vitamin D,25 Hydroxy 28.8 ng/mL
[2022-04-26 13:12] LABS: Anion Gap 6 (5-15); BUN 23 mg/dL (7-18); BUN/Creat Ratio 23.7 RATIO (10-20); Calcium,Total 9.1 mg/dL (8.5-10.1); Chloride 106 mmol/L (98-107); Cholesterol 125 mg/dL (200); Creatinine, Serum 0.97 mg/dL (0.55-1.02); EST Glomerular Filtration Rate 61 mL/min (>60); Est Glom Filt Rate - Afr Amer 73 mL/min (>60); Glucose 100 mg/dL (74-106); High Density Lipoprotein 51 mg/dL; Potassium 3.8 mmol/L (3.5-5.1); Sodium Level 138 mmol/L (136-145); Triglycerides 138 mg/dL; Very Low Density Lipoprotein 28 mg/dL (5-40)
== END | disposition home or self-care (01) ==
LOC: MFPLAB 10:31
PROVIDERS: PCP Family Medicine; Referring Provider Family Medicine; Visit Provider Family Medicine
DX: Z00.00 Encounter for general adult medical examination without abnormal findings (principal)
CPT/HCPCS: 36415; 80048; 80061; 82306

== ENCOUNTER → 2022-05-15 | Outpatient (CLI) | payer MEDICARE, SELFPAY ==
[2022-05-15 15:30] LABS: Absolute Neutrophil Count 3.3 X10^3/uL (2.0-7.7); Basophil# 0.06 X10^3/uL; Basophil% 0.8 % (0-1); Eosinophil# 0.22 X10^3/uL; Hematocrit 42.9 % (37-47); Hemoglobin 13.4 g/dL (12.0-15.0); Lymphocyte % 42.6 % (19-41); Mean Corp Hgb Conc 31.2 g/dL (32-36); Mean Corpuscular Hgb 28.7 pg (27.0-32.0); Mean Corpuscular Volume 91.9 fL (81-99); Mean Platelet Vol. 9.7 fl (6.2-12.0); Monocyte# 0.63 X10^3/uL; Monocyte% 8.7 % (0-10); NRBC Flagged by Analyzer 0 % (0-5); Neutrophil # 3.26 X10^3/uL (2.7-7.7); Neutrophil % 44.8 % (47-70); Platelet Count 261 K/mm3 (150-450); RBC Distribution Width CV 17.3 % (11.6-14.6); RBC Distribution Width SD 58.6 fl (35.1-43.9); Red Blood Count 4.67 M/mm3 (4.2-5.4); White Blood Count 7.3 K/mm3 (4.4-11.0)
[2022-05-15 16:11] LABS: ALB/GLOB Ratio 0.8 RATIO (0.9-2.4); AST(SGOT) 25 U/L (15-37); Alanine Aminotransfer ALT/SGPT 39 U/L (13-56); Alkaline Phosphatase 69 U/L (45-117); Anion Gap 3 (5-15); BUN 21 mg/dL (7-18); BUN/Creat Ratio 22.3 RATIO (10-20); Calcium,Total 8.3 mg/dL (8.5-10.1); Chloride 110 mmol/L (98-107); Creatinine, Serum 0.94 mg/dL (0.55-1.02); EST Glomerular Filtration Rate 63 mL/min (>60); Est Glom Filt Rate - Afr Amer 76 mL/min (>60); Globulin 3.8 g/dL (2.2-4.2); Glucose 101 mg/dL (74-106); Potassium 4.2 mmol/L (3.5-5.1); Protein, Total 6.8 g/dL (6.4-8.2); Sodium Level 140 mmol/L (136-145)
== END | disposition home or self-care (01) ==
LOC: MTLAB 14:08
PROVIDERS: PCP Family Medicine; Visit Provider Internal Medicine Rheumatology
DX: M06.09 Rheumatoid arthritis without rheumatoid factor, multiple sites (principal); M79.7 Fibromyalgia; M17.0 Bilateral primary osteoarthritis of knee; M47.897 Other spondylosis, lumbosacral region; I10 Essential (primary) hypertension; E03.9 Hypothyroidism, unspecified; Z79.899 Other long term (current) drug therapy
CPT/HCPCS: 36415; 80053; 85025

== ENCOUNTER → 2022-05-31 | Outpatient (CLI) | payer MEDICARE, SELFPAY ==
[2022-05-31 13:15] LABS: Mucous, Urine 0 SEEN /hpf (<or=2+); Red Blood Cells-Urine 0 SEEN /hpf (0-5)
[2022-05-31 15:50] LABS: Color, Urine Yellow (Yellow); Glucose, Dipstick Normal (Normal); Ketone-Dipstick Negative (Negative); Leukocyte Esterase-Dipstick 500 /ul (Negative); Nitrite-Dipstick Negative (Negative); Occult Blood-Urine Negative /ul (Negative); Protein-Dipstick Negative (Negative); Urine Bilirubin Dipstick Negative (Negative); Urine Clarity Clear (Clear); Urine Urobilinogen Normal (Normal)
[2022-05-31 16:07] LABS: Squamous Epithelial Cells - UA 0-5 SEEN /hpf (5-10); White Blood Cells 5-10 SEEN /hpf (0-5)
[2022-05-31 16:08] LABS: Bacteria 2+ /hpf (None Seen)
== END | disposition home or self-care (01) ==
LOC: LABSPEC 13:10
PROVIDERS: PCP Family Medicine; Referring Provider Family Medicine; Visit Provider Family Medicine
DX: R39.9 Unspecified symptoms and signs involving the genitourinary system (principal)
CPT/HCPCS: 81001; 87077; 87086; 87088; 87186

== ENCOUNTER → 2022-10-25 | Outpatient (CLI) | payer MEDICARE, SELFPAY ==
[2022-10-25 12:33] LABS: Absolute Lymphocyte Count 3.05 X10^3/uL (0.83-4.51); Absolute Neutrophil Count 2.9 X10^3/uL (2.0-7.7); Basophil# 0.09 X10^3/uL; Basophil% 1.3 % (0-1); Eosinophil# 0.26 X10^3/uL; Eosinophils% 3.9 % (0-5); Hematocrit 43.4 % (37-47); Hemoglobin 13.8 g/dL (12.0-15.0); Lymphocyte # 3.05 X10^3/ul (0.83-4.51); Lymphocyte % 45.3 % (19-41); Mean Corp Hgb Conc 31.8 g/dL (32-36); Mean Corpuscular Hgb 29.5 pg (27.0-32.0); Mean Corpuscular Volume 92.7 fL (81-99); Mean Platelet Vol. 9.8 fl (6.2-12.0); Monocyte# 0.47 X10^3/uL; NRBC Flagged by Analyzer 0 % (0-5); Neutrophil # 2.86 X10^3/uL (2.7-7.7); Neutrophil % 42.4 % (47-70); Platelet Count 268 K/mm3 (150-450); RBC Distribution Width CV 14.3 % (11.6-14.6); RBC Distribution Width SD 48.2 fl (35.1-43.9); Red Blood Count 4.68 M/mm3 (4.2-5.4); White Blood Count 6.7 K/mm3 (4.4-11.0)
[2022-10-25 13:12] LABS: ALB/GLOB Ratio 0.9 RATIO (0.9-2.4); AST(SGOT) 28 U/L (15-37); Alanine Aminotransfer ALT/SGPT 43 U/L (13-56); Albumin, Serum 3.2 g/dL (3.2-5.0); Alkaline Phosphatase 68 U/L (45-117); Anion Gap 6 (5-15); BUN 20 mg/dL (7-18); BUN/Creat Ratio 22.2 RATIO (10-20); Calcium,Total 8.8 mg/dL (8.5-10.1); Chloride 107 mmol/L (98-107); Cholesterol 146 mg/dL (200); EST Glomerular Filtration Rate 66 mL/min (>60); Est Glom Filt Rate - Afr Amer 80 mL/min (>60); Free T3 2.1 pg/mL (2.18-3.98); Globulin 3.6 g/dL (2.2-4.2); Glucose 92 mg/dL (74-106); High Density Lipoprotein 48 mg/dL; Potassium 4.1 mmol/L (3.5-5.1); Protein, Total 6.8 g/dL (6.4-8.2); Sodium Level 138 mmol/L (136-145); Thyroid Stim Hormone (TSH) 2.76 uIU/mL (0.358-3.74); Triglycerides 217 mg/dL; Very Low Density Lipoprotein 43 mg/dL (5-40)
== END | disposition home or self-care (01) ==
LOC: MFPLAB 11:24
PROVIDERS: PCP Family Medicine; Visit Provider Family Medicine
DX: R51.9 Headache, unspecified (principal); E03.9 Hypothyroidism, unspecified; I10 Essential (primary) hypertension
CPT/HCPCS: 36415; 80053; 80061; 84439; 84443; 84481; 85025

== ENCOUNTER → 2022-11-06 | Outpatient (CLI) | payer MEDICARE, SELFPAY ==
[2022-11-06 17:38] LABS: Absolute Lymphocyte Count 3.16 X10^3/uL (0.83-4.51); Absolute Neutrophil Count 3.2 X10^3/uL (2.0-7.7); Basophil# 0.09 X10^3/uL; Basophil% 1.2 % (0-1); Eosinophil# 0.34 X10^3/uL; Eosinophils% 4.6 % (0-5); Hematocrit 42.7 % (37-47); Hemoglobin 13.3 g/dL (12.0-15.0); Lymphocyte # 3.16 X10^3/ul (0.83-4.51); Lymphocyte % 43.1 % (19-41); Mean Corp Hgb Conc 31.1 g/dL (32-36); Mean Corpuscular Volume 93.2 fL (81-99); Mean Platelet Vol. 9.7 fl (6.2-12.0); Monocyte# 0.49 X10^3/uL; Monocyte% 6.7 % (0-10); NRBC Flagged by Analyzer 0 % (0-5); Neutrophil # 3.24 X10^3/uL (2.7-7.7); Neutrophil % 44.1 % (47-70); Platelet Count 258 K/mm3 (150-450); RBC Distribution Width CV 14.2 % (11.6-14.6); RBC Distribution Width SD 49.1 fl (35.1-43.9); Red Blood Count 4.58 M/mm3 (4.2-5.4); White Blood Count 7.3 K/mm3 (4.4-11.0)
[2022-11-06 18:10] LABS: AST(SGOT) 25 U/L (15-37); Alanine Aminotransfer ALT/SGPT 42 U/L (13-56); Albumin, Serum 3.4 g/dL (3.2-5.0); Alkaline Phosphatase 72 U/L (45-117); Anion Gap 6 (5-15); BUN 22 mg/dL (7-18); BUN/Creat Ratio 23.6 RATIO (10-20); Calcium,Total 8.6 mg/dL (8.5-10.1); Chloride 106 mmol/L (98-107); Creatinine, Serum 0.93 mg/dL (0.55-1.02); EST Glomerular Filtration Rate 63 mL/min (>60); Est Glom Filt Rate - Afr Amer 76 mL/min (>60); Globulin 3.4 g/dL (2.2-4.2); Glucose 98 mg/dL (74-106); Potassium 3.8 mmol/L (3.5-5.1); Protein, Total 6.8 g/dL (6.4-8.2); Sodium Level 138 mmol/L (136-145)
== END | disposition home or self-care (01) ==
LOC: MTLAB 15:45
PROVIDERS: PCP Family Medicine; Referring Provider Internal Medicine Rheumatology; Visit Provider Internal Medicine Rheumatology
DX: M06.09 Rheumatoid arthritis without rheumatoid factor, multiple sites (principal); M79.7 Fibromyalgia; Z79.899 Other long term (current) drug therapy
CPT/HCPCS: 36415; 80053; 85025

== ENCOUNTER → 2023-01-26 | Outpatient (CLI) | payer MEDICARE, SELFPAY ==
[2023-01-26 16:48] LABS: Anion Gap 1 (5-15); BUN 21 mg/dL (7-18); BUN/Creat Ratio 19.1 RATIO (10-20); Calcium,Total 9.2 mg/dL (8.5-10.1); Chloride 110 mmol/L (98-107); Cholesterol 149 mg/dL (200); EST Glomerular Filtration Rate 52 mL/min (>60); Est Glom Filt Rate - Afr Amer 63 mL/min (>60); Glucose 92 mg/dL (74-106); High Density Lipoprotein 42 mg/dL; Potassium 4.9 mmol/L (3.5-5.1); Sodium Level 140 mmol/L (136-145); Thyroid Stim Hormone (TSH) 3.85 uIU/mL (0.358-3.74); Triglycerides 208 mg/dL; Very Low Density Lipoprotein 42 mg/dL (5-40)
== END | disposition home or self-care (01) ==
LOC: MTLAB 11:27
PROVIDERS: PCP Family Medicine; Referring Provider Family Medicine; Visit Provider Family Medicine
DX: E03.9 Hypothyroidism, unspecified (principal); I10 Essential (primary) hypertension
CPT/HCPCS: 36415; 80048; 80061; 84443

== ENCOUNTER → 2023-02-26 | Outpatient (CLI) | payer MEDICARE, SELFPAY ==
--- NOTE | 2023-02-26 10:33 | RAD_ITS ---
INDICATION: PAIN EXAMINATION/TECHNIQUE: X-RAY - RIGHT XR Ankle Min 3 Views 3 VIEWS COMPARISON: No relevant prior comparison study available FINDINGS: SOFT TISSUES: No soft tissue swelling or gas. No radiopaque foreign body. BONES/JOINTS: No acute fracture or subluxation.. Well-defined cortical irregularity distal fibular shaft best seen on the lateral view likely benign. Preservation of the joint space.. Small plantar calcaneal spur. RAD/Ankle min 3 Views IMPRESSION: Cortical irregularity posterior distal fibula probably due to previous injury. No demonstrated osseous changes. Electronically Signed: Jeremías Call MD at 10:54 EST ,
--- NOTE | 2023-02-26 10:33 | RAD_ITS ---
INDICATION: PAIN EXAMINATION/TECHNIQUE: X-RAY - XR Hip Unilateral with Pelvis when performed; 2-3 Views COMPARISON: No relevant prior comparison study available 05/04/2021 FINDINGS: PELVIC BONES: No displaced fracture, destructive or sclerotic lesions. Note that overlapping bowel shadows may however obscure fine detail. Sacroiliac joints are unremarkable. No widening of the pubic symphysis. HIPS: Mild narrowing of the marginal degenerative spur. No displaced fracture seen in this frontal view. SOFT TISSUES: Surgical clips in the pelvic and inguinal regions. RAD/HIP, UNI W/ Pelvis 2-3 Views IMPRESSION: No evidence of displaced pelvic or hip fracture. Electronically Signed: Jeremías Call MD at 10:56 EST ,
--- OUTSIDE RECORDS SUMMARY | 2023-02-26 10:59 | XMS RPT_ITS | CCD ---
Author Name Unknown Address [address] [place] [address] Organization [facility] Results Test Name Value Interpretation Reference Range Facil ity Summary Purpose Family History No Family History Records FoundNo Family History Records FoundNo Family History Records Found Advance Directives No Advanced Directives Records FoundNo Advanced Directives Records FoundNo Advanced Directives Records Found Additional Source Comments INFORMATION SOURCE (unrecogn ized section and content) DATE CREATED AUTHOR AUTHOR'S ORGANIZ ATION 01/10/2019 [facility] DATE CREATED AUTHOR AUTHOR'S ORGANIZ ATION 11/17/2020 [facility] ([place]) FOR RECORDS PERTAINING TO PATIENTS WHO ARE OR HAVE BEEN ENROLLED IN A CHEMICAL DEPENDENCY/SUBSTANCEABUSE PROGRAM, SOME INFORMATION MAY BE OMITTED. This clinical summary was aggregated from multiple sources. Caution should be exercised in using it in the provision of clinical care. This summary normalizes information from multiple sources, and as a consequence, information in this document may materially change the coding, format and clinical context of patient data. In addition, data may be omitted in some cases. CLINICAL DECISIONS SHOULD BE BASED ON THE PRIMARY CLINICAL RECORDS. [facility] [employer] [facility]. provides no warranty or guarantee of the accuracy or completeness of information in this document.
== END | disposition home or self-care (01) ==
LOC: MTRAD 10:32
PROVIDERS: PCP Family Medicine; Referring Provider Family Medicine; Visit Provider Family Medicine
DX: M25.571 Pain in right ankle and joints of right foot (principal); M25.551 Pain in right hip
CPT/HCPCS: 73502; 73610

== ENCOUNTER 2023-03-15 11:19 | Outpatient (RCR) | payer MEDICARE, SELFPAY ==
--- NOTE | 2023-03-15 15:12 | HP.PTEVAL ---
Patient's Visit Information Visit Information Visit Information: JORDAN BLUM is a 72 year old F referred to Physical Therapy by Dr. David Chambers MD with a diagnosis of HIP PAIN. Date of Evaluation: 03/15/23 Physical Therapist: Fatou Miller PT, Cert MDT Visit Plan Frequency: 1-2x /Week Duration: 1-2 months Plan: Neutral Spine Core Stability Exercises and Arleth LE Hip Flexor, Hamstring and Calf Stretching to help reduce stress to the Lumbar Spine with all Daily Activities. Arleth LE Strengthening. Gait and Balance Training. Instruction in Proper Posture Control, Body Mechanics, and Appropriate Activity Modifications. HEP Instruction. Patient is requesting to only come to PT one maybe two times a week. 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 Present symptoms: R HIP PAIN (PATIENT POINTS TO R LOW BACK/BUTTOCK AREA). PAIN RADIATING DOWN THE OUTSIDE OF R THIGH FROM R LOW BACK/BUTTOCK TO KNEE. REPORTS NEUROPATHY FROM THE KNEES DOWN ARLETH. Present since: ABOUT A MONTH AGO. Pain Scale: WORST 9/10, LEAST 0/10 Currently: 0/10 Is it getting better, worse or staying the same: STAYING THE SAME Commenced as a result of: POSSIBLY FROM LOSING BALANCE AND TWISTING TRYING TO KEEP BALANCE WHEN TRYING TO GET SOMETHING FROM A LOWER CABINET. Symptoms at onset: R LOW BACK PAIN. Worse: WHEN TRYING TO GET OUT OF BED, TRYING TO GET AROUND IN THE MORNING STIFF AND DIFFICULTY BALANCE THEREFORE USE THE WALKER, JUST MOVEMENT AROUND MY HOUSE, BEING ON FEET TO DO THINGS LIKE DISHES, STANDING AT COUNTER TO PREP STUFF, BENDING, LIFTING, WALKING. Better: SITTING AT HOME, SITTING IN HEATED SEATS IN CAR, ALEVE Disturbed sleep: YES Previous history/Previous treatment: NO PRIOR HISTORY OF HIP PROBLEMS OR TREATMENT. DOES HAVE HISTORY OF LOW BACK PAIN TREATED WITH BRIDGET'S AND ABLASION THROUGH PAIN MGMT WITH DR. LINTON ABOUT 10 YEARS AGO. NO BACK SURGERY. PHYSICAL THERAPY ON BACK A LONG TIME AGO TOO. NO CHIROPRACTIC. HISTORY OF BACK SPASMS AND PAIN DOWN LEGS RECENT A YEAR AGO - SELF TREATED. Treatment this episode: ALEVE Coughing/sneezing/straining: POSITIVE Gait: WALKER IN THE MORNINGS AND CANE WHEN OUT AND ABOUT. LAST FALL WAS ABOUT 8 MONTHS AGO STEPPING INTO HOUSE - NO APPARENT INJURIES. Bowel or Bladder Dysfunction: CHRONIC INCONTINENCE - PHYSICIAN AWARE Accidents: NO Unexplained weight loss: NO Imaging: PATIENT DENIES RECENT BACK X-RAYS. RECENT R HIP AND PELVIC X-RAYS - NDICATION: PAIN EXAMINATION/TECHNIQUE: X-RAY - XR Hip Unilateral with Pelvis when performed; 2-3 Views COMPARISON: No relevant prior comparison study available 05/04/2021 FINDINGS: PELVIC BONES: No displaced fracture, destructive or sclerotic lesions. Note that overlapping bowel shadows may however obscure fine detail. Sacroiliac joints are unremarkable. No widening of the pubic symphysis. HIPS: Mild narrowing of the marginal degenerative spur. No displaced fracture seen in this frontal view. SOFT TISSUES: Surgical clips in the pelvic and inguinal regions. RAD/HIP, UNI W/ Pelvis 2-3 Views IMPRESSION: No evidence of displaced pelvic or hip fracture. Electronically Signed: Jeremías Call MD at 10:56 EST PMH/Recent major surgery: H/O R ANKLE FX X 2 AND CURRENT R ANKLE PAIN - podiatry consult pending. Patient reports she is limping due to this. RA. FIBROMYALGIA. HTN. HYPOTHYROIDISM. R SHLD REPLACEMENT. GASTRIC BYPASS SX 2000. Objective Objective: Sitting/Standing Posture: POOR. FH. RSH'S. INCREASED KYPHOSIS. INCREASED TRUNK FLEXION. NO RELEVANT LATERAL SHIFT. Active Correction of posture: ABLE TO CORRECT BUT NOT MAINTAIN. C/O INCREASED R LBP DURING CORRECTION BUT THEN PAIN GOES AWAY ONCE CORRECTED. Other Observations: THIS PATIENT AMBULATES INDEP'LY INTO PT WITH A STRAIGHT CANE IN THE R UE WITH VERY SLOW CADANCE AND NOT EFFECTIVLEY USING CANE TO ASSIST R LE/POOR SEQUENCING WITH CANE. SHE HAS A MILD LIMP ON THE R LE AND HAS MINIMAL HEEL STRIKE AND TOE OFF PHASES OF GAIT ARLETH. VERY SHORT ARLETH STRIDE LENGTH. NO LOB BUT REACHES FOR EXTERNAL SUPPORTS WHEN AVAILABLE. SHE IS A FALL RISK AND THIS PT RECOMMENDS USE OF WALKER AT ALL TIMES FOR SAFETY. PATIENT REPORTS FEELING SAFER WITH WALKER. THIS PT INSTRUCTED PATIENT IN PROPER USE OF CANE WITH CANE IN L UE WHICH IMPROVED GAIT BUT STILL UNSAFE EVEN WITH STEP TO PATTERN DUE TO NOT QUITE BEING ABLE TO GET SEQUENCING CORRECT. Sensory deficit: ARLETH LE LIGHT TOUCH SENSATION IS GROSSLY INTACT AND SYMMETRICAL ROM deficit: ARLETH HIP STIFFNESS BUT ROM SYMMETRICAL AND PATIENT DENIES HIP ROM TESTING PROVOKING MUCH PAIN AND NOT THE PAIN SHE IS HERE FOR TODAY. ARLETH HS AND ANKLE TIGHTNESS. Motor deficit: ARLETH HIPS 4/5, KNEES 5/5, ANKLES: R 4/5, LEFT 5/5. TESTING OF L HIP ACTUALLY PROVOKED C/O R LB PAIN AND TESTING OF R ANKLE PROVOKES R ANKLE AND CALF PAIN. I PROCEEDED CAREFULLY WITH MMT'ING AND ESPECIALLY R ANKLE DUE TO HISTORY AND SPECIALIST CONSULT PENDING. OTHER: PATINT IS UNABLE TO SLS ON EITHER LE WITHOUT UE ASSIST. Lumbar mvmt loss: flex - MIN ext - ANA ROSA R SG - ANA ROSA L SG - MOD PATIENT C/O INCREASED R LOW BACK PAIN WITH LUMBAR ROM TESTING ALL PLANES ESPECIALLY R SG TESTING. Core strength: POOR Palpation: TENDERNESS WITH PALPATION OF R LUMBAR PARASPINALS AND R BUTTOCK REGION. PATIENT DENIES TENDERNESS WITH PALPATION OF LUMBAR SPINE AND RIGHT ILIAC CREAST AND GREATER TROCH REGIONS. OTHER: SEE STS AND TUG TESTS BELOW. Balance/Special Test Scores Lower Extremity Functional Score: 20 TUG Test Time Seconds: 35.79 30 Second Chair Rise Test Seconds: 4 Goals Goal 1:: DECREASE C/O R LOW BACK/BUTTOCK/HIP PAIN BY AT LEAST 25% WITH STANDING AND WALKING TO EASE ADL'S. Goal Time Frame: 4-6 Weeks Goal 2:: PATIENT WILL COMPLETE 6 STANDS IN 30 SECS WITH ONE UE ASSIST TO DEMONSTRATE IMPROVED FUNCTIONAL STRENGTH Goal Time Frame: 2-4 Weeks Goal 3:: PATIENT WILL COMPLETE TUG IN < 25 SECS WITH CANE TO DEMONSTRATE IMPROVED GAIT STABILITY Goal Time Frame: 4-6 Weeks Goal 4:: PATIENT WILL AMBULATE 400 FEET WITH CANE WITH SUPERVISION X 1 TO IMPROVE ACTIVITY TOLERANCE Goal Time Frame: 6-8 Weeks Goal 5:: PATIENT WILL BE INDEP WITH A HEP FOR CONTINUED IMPROVEMENT ONCE FORMAL PHYSICAL THERAPY CONCLUDES. Goal Time Frame: 6-8 Weeks Rehabilitation Potential Physical Therapy Diagnosis: THIS PATIENT PRESENTS TO PT WITH C/O RIGHT LOW BACK/BUTTOCK AREA PAIN THAT INCREASES WITH TRANSFERS, BENDING, LIFTING, STANDING AND WALKING. DECREASED PAIN WITH SITTING, HEAT AND ALEVE. SHE PRESENTS WITH HYPOMOBILITY, IMBALANCE, DECREASED PROPER USE OF ASSISTIVE DEVICE, DECREASED KNOWLEDGE OF PROPER POSTURE CONTROL AND BODY MECHANICS, CORE WEAKNESS AND LE STIFFNESS MAKING HER A GOOD CANDIDATE FOR PT. Rehabilitation Potential: Good Anticipated Interventions Patient/Client Instruction: Educate patient on: Condition, Plan of Care and Risk Factors For the Purpose of:: To improve self management Therapeutic Exercise to Include: Strength training, Balance training, Body mechanics, Postural training, Flexibilty training, Gait and locomotor training, Neuromotor development and Dynamic Lumbar Stabilization For the Purpose of:: To decrease pain, To improve muscle performance and motor function, To increase tolerance to activity/condition/position, To improve performance and independence with ADL's, To improve ability of physical actions for home/community/work/leisure, To improve gait and locomotor functions, To increase flexibility/ROM and To improve safety with gait Text: Thank you for the opportunity to evaluate your patient. For Medicare and Medicare HMO plans, please review the plan of care and approve it. It will need to be FAXED BACK to us at [phone] for Medicare purposes. For Medicare only, by signing this I certify the plan of care. Please let me know if there are questions or concerns regarding this plan of care. Physician Signature: Date:
--- NOTE | 2023-03-16 16:22 | HP.PT.NRP ---
Patient Information Patient Information: JORDAN BLUM was seen in my office for initial evaluation on 03/15/23. The following Plan of Care was established for this patient: POC Established Initial Frequency: 1-2x /Week Initial Duration: 1-2 months Anticipated Interventions Patient/Client Instruction: Educate patient on: Condition, Plan of Care and Risk Factors For the Purpose of:: To improve self management Therapeutic Exercise to Include: Strength training, Balance training, Body mechanics, Postural training, Flexibilty training, Gait and locomotor training, Neuromotor development and Dynamic Lumbar Stabilization For the Purpose of:: To decrease pain, To improve muscle performance and motor function, To increase tolerance to activity/condition/position, To improve performance and independence with ADL's, To improve ability of physical actions for home/community/work/leisure, To improve gait and locomotor functions, To increase flexibility/ROM and To improve safety with gait Last Seen Last Seen: This patient was last seen in our office . Pertinent comments regarding their Physical therapy will appear below: This patient was seen for an initial physical therapy evaluation and then she apparently subsequently called and cancelled due to her co-pay being too expensive. At this point I will be discontinuing this patient from physical therapy. I would be happy to see this patient again in the future if found appropriate by the physician. Thank you! Fatou Miller, PT, Cert MDT Balance/Gait/Functional tests Balance/Special Test Scores Lower Extremity Functional Score: 20 TUG Test Time Seconds: 35.79 Tug Test: >30sec.=impaired mobility 30 Second Chair Rise Test Seconds: 4
== END 2023-03-15 19:00 | disposition home or self-care (01) ==
LOC: PT 11:19
PROVIDERS: PCP Family Medicine; Visit Provider Family Medicine
DX: M25.559 Pain in unspecified hip (principal)
CPT/HCPCS: 97162

== ENCOUNTER → 2023-05-01 | Outpatient (CLI) | payer MEDICARE, SELFPAY ==
[2023-05-01 15:32] LABS: Absolute Lymphocyte Count 2.92 X10^3/uL (0.83-4.51); Absolute Neutrophil Count 3.1 X10^3/uL (2.0-7.7); Basophil# 0.09 X10^3/uL; Basophil% 1.3 % (0-1); Eosinophil# 0.31 X10^3/uL; Eosinophils% 4.4 % (0-5); Hematocrit 45.4 % (37-47); Hemoglobin 14.4 g/dL (12.0-15.0); Lymphocyte # 2.92 X10^3/ul (0.83-4.51); Lymphocyte % 41.7 % (19-41); Mean Corp Hgb Conc 31.7 g/dL (32-36); Mean Corpuscular Hgb 29.9 pg (27.0-32.0); Mean Corpuscular Volume 94.2 fL (81-99); Mean Platelet Vol. 10.2 fl (6.2-12.0); Monocyte# 0.52 X10^3/uL; Monocyte% 7.4 % (0-10); NRBC Flagged by Analyzer 0 % (0-5); Neutrophil # 3.14 X10^3/uL (2.7-7.7); Neutrophil % 44.8 % (47-70); Platelet Count 274 K/mm3 (150-450); RBC Distribution Width CV 14.3 % (11.6-14.6); RBC Distribution Width SD 49.7 fl (35.1-43.9); Red Blood Count 4.82 M/mm3 (4.2-5.4)
[2023-05-01 19:42] LABS: ALB/GLOB Ratio 0.9 RATIO (0.9-2.4); AST(SGOT) 36 U/L (15-37); Alanine Aminotransfer ALT/SGPT 50 U/L (13-56); Albumin, Serum 3.2 g/dL (3.2-5.0); Alkaline Phosphatase 61 U/L (45-117); Anion Gap 6 (5-15); BUN 21 mg/dL (7-18); Calcium,Total 9.1 mg/dL (8.5-10.1); Chloride 108 mmol/L (98-107); Creatinine, Serum 0.88 mg/dL (0.55-1.02); EST Glomerular Filtration Rate 68 mL/min (>60); Est Glom Filt Rate - Afr Amer 82 mL/min (>60); Globulin 3.6 g/dL (2.2-4.2); Glucose 90 mg/dL (74-106); Protein, Total 6.8 g/dL (6.4-8.2); Sodium Level 140 mmol/L (136-145)
--- OUTSIDE RECORDS SUMMARY | 2023-05-02 00:24 | XMS RPT_ITS | CCD ---
Author Name Unknown Address [address] [place] [address] Organization [facility] Results Test Name Value Interpretation Reference Range Facil ity Summary Purpose Family History No Family History Records FoundNo Family History Records FoundNo Family History Records Found Advance Directives No Advanced Directives Records FoundNo Advanced Directives Records FoundNo Advanced Directives Records Found Additional Source Comments INFORMATION SOURCE (unrecogn ized section and content) DATE CREATED AUTHOR AUTHOR'S ORGANIZ ATION 01/10/2019 [facility] DATE CREATED AUTHOR AUTHOR'S ORGANIZ ATION 11/17/2020 [facility] ([place]) FOR RECORDS PERTAINING TO PATIENTS WHO ARE [...] BE BASED ON THE PRIMARY CLINICAL RECORDS. [facility] [facility]. provides no warranty or guarantee of the accuracy or completeness of information in this document.
== END | disposition home or self-care (01) ==
LOC: MTLAB 11:17
PROVIDERS: PCP Family Medicine; Referring Provider Internal Medicine Rheumatology; Visit Provider Internal Medicine Rheumatology
DX: M06.09 Rheumatoid arthritis without rheumatoid factor, multiple sites (principal); M79.7 Fibromyalgia; M17.0 Bilateral primary osteoarthritis of knee; Z79.899 Other long term (current) drug therapy
CPT/HCPCS: 36415; 80053; 85025

== ENCOUNTER 2023-07-30 13:54 | Emergency (ER) | payer MEDICARE, SELFPAY ==
[2023-07-30 13:54] VITALS: BP 166/94; PULSE 72; RESP 18; TEMP 36.2; O2SAT 98
--- NOTE | 2023-07-30 13:59 | EKG12_ITS ---
Test Reason : Blood Pressure : / mmHG Vent. Rate : 075 BPM Atrial Rate : 075 BPM P-R Int : 216 ms QRS Dur : 096 ms QT Int : 412 ms P-R-T Axes : 024 -24 005 degrees QTc Int : 460 ms Sinus rhythm with 1st degree A-V block Otherwise normal ECG Confirmed by HARSHAL DICKSON, SONIA ([id number]), editorial assistant BRANDEE RIVERA ([id number]) on 07/31/2023 8:18:35 AM Referred By: DWAIN Confirmed By:SONIA CAPUTO MD
--- NOTE | 2023-07-30 13:59 | RAD_ITS ---
STUDY: X-RAY CHEST REASON FOR EXAM: Female, 72 years old. Chest pain TECHNIQUE: Single AP portable view of the chest. COMPARISON: Comparison is made with prior study dated September 12, 2021. FINDINGS: EKG electrodes are seen. The lungs are clear and expanded. There is no demonstrated pleural abnormality. There is mild cardiac enlargement. Normal mediastinum and denise. Normal visualized pulmonary arteries. There is atherosclerotic tortuosity of the aortic arch and descending thoracic aorta. There are diffuse degenerative changes of the visualized thoracic spine. Status post right reverse shoulder replacement. Degenerative changes of the left shoulder joint. There is no demonstrated abnormality of the visualized soft tissue structures of the upper abdomen. RAD/Chest 1 View (Portable) IMPRESSION: Mild cardiomegaly. Electronically Signed: Tex Harvey MD at 14:37 EDT ,
[2023-07-30 14:16] LABS: Absolute Lymphocyte Count 3.45 X10^3/uL (0.83-4.51); Absolute Neutrophil Count 2.8 X10^3/uL (2.0-7.7); Basophil# 0.08 X10^3/uL; Basophil% 1.1 % (0-1); Eosinophils% 2.8 % (0-5); Hematocrit 47.4 % (37-47); Hemoglobin 15.1 g/dL (12.0-15.0); Lymphocyte # 3.45 X10^3/ul (0.83-4.51); Lymphocyte % 48.7 % (19-41); Mean Corp Hgb Conc 31.9 g/dL (32-36); Mean Corpuscular Hgb 29.7 pg (27.0-32.0); Mean Corpuscular Volume 93.1 fL (81-99); Mean Platelet Vol. 9.8 fl (6.2-12.0); Monocyte# 0.58 X10^3/uL; Monocyte% 8.2 % (0-10); NRBC Flagged by Analyzer 0 % (0-5); Neutrophil # 2.76 X10^3/uL (2.7-7.7); Neutrophil % 39.1 % (47-70); Platelet Count 258 K/mm3 (150-450); RBC Distribution Width CV 13.6 % (11.6-14.6); RBC Distribution Width SD 46.5 fl (35.1-43.9); Red Blood Count 5.09 M/mm3 (4.2-5.4); White Blood Count 7.1 K/mm3 (4.4-11.0)
[2023-07-30 14:26] VITALS: O2SAT 98
--- NOTE | 2023-07-30 14:28 | ED.RN ---
pt c/o runs of SVT occurring daily for approx. the past week. associated with chest pain and dyspnea. attempted to self converted with vagal maneuvers and per Dr. Cheney, also taking an extra Metoprolol when heart rate is elevated.
--- NOTE | 2023-07-30 14:29 | NURSING ---
NO OLD EKGS
--- NOTE | 2023-07-30 14:37 | VDLE_ITS ---
Reason For Study: Pain RLE RIGHT GSV is normal. CFV is compressible, spontaneous, phasic, competent and demonstrates normal augmentation. FV is compressible, spontaneous, phasic, competent and demonstrates normal augmentation. POP V is compressible, spontaneous, phasic, competent and demonstrates normal augmentation. T/P Trunk is compressible. PTV is compressible. RT PerV is compressible. Hypoechoic, non vascular structure noted Rt Pop Fossa measuring 0.70cm x 2.67cm. Procedure This is a venous duplex using B-mode, color flow and spectral Doppler. Exam performed portable in ED. A preliminary report was called and/or faxed to Oma NIEVES. VL/Venous Duplex US, Unilateral Interpretation Summary Deep veins of the right lower extremity are patent and compressible segmentally . There is no evidence of right lower extremity deep vein thrombosis. The right great sapheno us vein appears patent and compressible segmentally. Hypoechoic, non vascular structure noted right popliteal fossa measuring 0.70cm x 2.67cm. Ordering Physician: Oma Braswell Referring Physician: David Chambers Performed By: Mikayla Perez, YEE, RVT
[2023-07-30 14:42] LABS: Anion Gap 4 (5-15); BUN 17 mg/dL (7-18); BUN/Creat Ratio 17.3 RATIO (10-20); Calcium,Total 9.1 mg/dL (8.5-10.1); Chloride 108 mmol/L (98-107); Creatinine, Serum 0.98 mg/dL (0.55-1.02); EST Glomerular Filtration Rate 59 mL/min (>60); Est Glom Filt Rate - Afr Amer 72 mL/min (>60); Glucose 101 mg/dL (74-106); Potassium 3.9 mmol/L (3.5-5.1); Sodium Level 138 mmol/L (136-145); Troponin-I HS (w/2H Reflex) 6 pg/mL (3.0-54.0)
--- NOTE | 2023-07-30 14:54 | EX.ED.DYSGE1 ---
HPI <EZEQUIEL Villanueva - Last Filed: 07/30/23 17:29> History of Present Illness Chief Complaint: Palpitations Narrative Narrative: Patient presenting today due to palpitations that she has had intermittently over the past week. She reports a history of SVT. Last night she was sitting on the couch watching TV when her heart rate went to 140 bpm. She reports that her symptoms usually do resolve on their own. She did see her PCP on Sunday who referred her to cardiology. She is on metoprolol. She has had intermittent pain to her right calf over the past week, she does have a history of a DVT, she is not on any blood thinners. She reports feeling short of breath when the palpitations begin but not at rest. She has also had a slight cough. She denies fevers, chills, chest pain, abdominal pain, nausea, and vomiting. [facility] <EZEQUIEL Villanueva - Last Filed: 07/30/23 17:29> [facility] Medical History Contact with and (suspected) exposure to other viral communicable diseases URI (upper respiratory infection) History of DVT (deep vein thrombosis) SVT (supraventricular tachycardia) Essential hypertension Wound infection after surgery Depression Hypothyroidism Seizure disorder Vitamin B12 deficiency Vitamin D deficiency Diarrhea Insomnia Allergic rhinitis GERD (gastroesophageal reflux disease) Morbid obesity Right rotator cuff tear Rheumatoid arthritis Home Medications ?Medication ?Instructions ?Recorded ?Last Taken ?Type fluticasone propionate 50 1 spray NASAL DAILY 11/29/15 Unknown History mcg/actuation nasal spray,suspension levothyroxine 175 mcg tablet 175 mcg PO DAILY 11/29/15 08/01/17 06:00 History loperamide 2 mg capsule 2 mg PO DAILY PRN Diarrhea 11/29/15 01/26/17 05:00 History 2 MG nabumetone 500 mg tablet 1,000 mg PO DAILY 11/29/15 Unknown History pantoprazole 40 mg tablet,delayed 40 mg PO DAILY 11/29/15 08/01/17 06:00 History release triamterene 37.5 1 tab PO DAILY 11/29/15 Unknown History mg-hydrochlorothiazide 25 mg tablet albuterol sulfate 90 mcg/actuation 2 puff inhalation Q6H PRN PRN 12/12/16 Unknown History aerosol inhaler Asthma duloxetine 60 mg capsule,delayed 60 mg PO DAILY 12/12/16 Unknown History release levetiracetam 1,000 mg tablet for 1,000 mg PO DAILY 12/12/16 08/01/17 06:00 History oral suspension montelukast 10 mg tablet 10 mg PO DAILY 12/12/16 Unknown History adalimumab 40 mg/0.8 mL 40 mg subcut FR 09/29/20 Unknown History subcutaneous syringe kit amitriptyline 100 mg tablet 100 mg PO QHS 09/29/20 Unknown History cyanocobalamin (vitamin B-12) 1,000 mcg PO DAILY 09/30/20 Unknown History 1,000 mcg tablet gabapentin 300 mg capsule 300 mg PO BID nerve pain 09/30/20 Unknown History hydroxychloroquine 200 mg tablet 200 mg PO BID 09/30/20 Unknown History multivitamin 1 tab PO DAILY 09/30/20 Unknown History prednisone 10 mg tablet 10 mg PO DAILY PRN 09/30/20 Unknown History amoxicillin 500 mg capsule 500 mg PO .COMPLEX PRN Take 2000mg 11/25/20 Unknown Rx within 1 hr of dental procedure. #4 caps methylprednisolone 4 mg tablets in See Rx Instructions PO PER PKG DIR 08/20/21 Unknown Rx a dose pack (Medrol (Jose Alfredo)) #21 tabs metoprolol tartrate 100 mg tablet 100 mg PO BID #180 tabs 10/19/21 Unknown Rx Allergy/AdvReac Type Severity Reaction Status Date / Time adhesive tape Allergy Rash Verified 07/30/23 13:58 codeine Allergy Hives Verified 07/30/23 13:58 Opioids - Morphine Analogues Allergy Hives Verified 07/30/23 13:58 fosinopril (From Monopril) AdvReac severe Verified 07/30/23 13:58 cough Family History Brother Colon cancer Lung cancer Mother Hypertension Thyroid disorder Father Ulcer Lung cancer Surgical History History of bilateral cataract extraction History of cholecystectomy Hx of gastric bypass Encounter for incision and drainage procedure Status post reverse total replacement of right shoulder S/P rotator cuff repair H/O: hysterectomy Social History Smoking Status: Never smoker second hand exposure: No alcohol intake: never substance use type: does not use caffeine: Yes seatbelt use: always ROS <EZEQUIEL Villanueva - Last Filed: 07/30/23 17:29> ROS ED Constitutional Constitutional ED: Denies chills or fever(s) Cardiovascular Cardiovascular: Reports palpitations and racing heartbeat; Denies chest pain Respiratory/Chest Respiratory/Chest: Reports cough and dyspnea Gastrointestinal Gastrointestinal: Denies abdominal pain, nausea or vomiting Musculoskeletal Musculoskeletal: Reports myalgias; Denies arthralgias Integumentary Denies rash Neurologic Neurologic: Denies weakness EXAM <EZEQUIEL Villanueva Last Filed: 07/30/23 17:29> Physical Exam Const Vital Signs: 07/30/23 13:54 07/30/23 14:26 07/30/23 14:26 Temperature 97.1 F L Temperature Source Temporal Pulse Rate 72 Respiratory Rate 18 Respiratory Effort Normal Blood Pressure 166/94 H Blood Pressure Mean 118 Pulse Ox 98 98 Oxygen Delivery Method Room Air Room Air 07/30/23 15:54 07/30/23 16:54 Temperature 97.6 F L Temperature Source Pulse Rate 66 56 L Respiratory Rate 17 18 Respiratory Effort Blood Pressure 149/80 H 148/82 H Blood Pressure Mean 103 104 Pulse Ox 93 98 Oxygen Delivery Method Room Air Positive well nourished, well developed and no apparent distress General Appearance ED: well developed HEENT Reports normocephalic and head/scalp atraumatic Mouth ED: Yes moist mucous membranes normal Eyes PERRL and EOMs intact bilaterally Neck full ROM and supple Chest Wall inspection of chest normal Resp normal respiratory effort and clear to auscultation bilaterally Cardio regular rate and regular rhythm GI soft to palpation, non-tender, non-distended and no masses Back/Spine normal ROM and normal to inspection Extremity normal to inspection and full ROM Extremity Narrative: Slight swelling to the right lower extremity in comparison to the left, patient reports that this is chronic. right DP pulse 2+, capillary refill, sensation intact. Neuro oriented x3, CN's II-XII intact bilaterally, moves all extremities, no focal motor deficits and no sensory deficits noted Sensorium / Orientation: awake and alert Psych mental status grossly normal and thought process normal Skin no rashes or lesions noted and no wounds <Dr. Herrera Ramsay DO - Last Filed: 07/30/23 20:03> Physical Exam Const Vital Signs: 07/30/23 13:54 07/30/23 14:26 07/30/23 14:26 Temperature 97.1 F L Temperature Source Temporal Pulse Rate 72 Respiratory Rate 18 Respiratory Effort Normal Blood Pressure 166/94 H Blood Pressure Mean 118 Pulse Ox 98 98 Oxygen Delivery Method Room Air Room Air 07/30/23 15:54 07/30/23 16:54 Temperature 97.6 F L Temperature Source Pulse Rate 66 56 L Respiratory Rate 17 18 Respiratory Effort Blood Pressure 149/80 H 148/82 H Blood Pressure Mean 103 104 Pulse Ox 93 98 Oxygen Delivery Method Room Air MDM <EZEQUIEL Villanueva - Last Filed: 07/30/23 17:29> MDM MDM Narrative Medical decision making narrative: Patient presenting due to intermittent palpitations she has had over the past week.. She has not had any chest pain. She reports pain to her right calf with previous DVT, venous duplex ultrasound was obtained and is negative. Chest x-ray shows cardiomegaly with no other cardiopulmonary abnormality. CBC and BMP are unremarkable, BNP and troponin WNL. She is not in any arrhythmia here and is on metoprolol. She is picking up a Holter monitor tomorrow through cardiology. She does have a scheduled appointment with cardiology in the next few weeks. Encouraged her to follow-up with her PCP, return instructions were given and patient discharged home in stable condition. Interventions / MDM: Differential diagnosis: Diagnosis considered but do not suspect: N/A My EKG interpretation: Sinus rhythm Imaging independently reviewed and interpreted by myself: 1 view chest x-ray: Mild cardiomegaly, no acute process also read by radiology. External documents reviewed: N/A Test considered but not ordered:N/A ED course: Attending note: Patient seen and evaluated with it infrastructure specialist. I perform my own [id number] evaluation. I agree with the plan of work-up. Intermittent palpitations with lightheaded symptoms over the past week. Times will last for an hour. 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 Has had breakthrough issues intermittently. Is on metoprolol. Was seen Dr. Cheney previously. Had symptoms this morning. Called cardiology office had plans for outpatient Holter monitor however referred to the ED for evaluation. Also reports right calf pain for the past week. History of DVT in the past. No current anticoagulants. No recent travel or surgeries. No chest pains. Patient EKG sinus rhythm. Labs were ordered, DVT studies. Re-evaluation: stable Disposition discussed with patient/family/significant other: Case discussed with consulting clinician: N/A This note was generated with [employer] dictation software. It may contain incorrect words, spelling, and punctuation that were not noted in checking the note before signing. Lab Data Labs: Laboratory Results - last 24 hr 07/30/23 07/30/23 14:10 16:19 WBC 7.1 RBC 5.09 Hgb 15.1 H Hct 47.4 H MCV 93.1 MCH 29.7 MCHC 31.9 L RDW Std Deviation 46.5 H RDW Coeff of Rekha 13.6 Plt Count 258 MPV 9.8 Immature Gran % (Auto) 0.100 Neut % (Auto) 39.1 L Lymph % (Auto) 48.7 H [place] % (Auto) 8.2 Eos % (Auto) 2.8 Baso % (Auto) 1.1 H Absolute Neuts (auto) 2.8 Absolute Lymphs (auto) 3.45 Nucleated RBC % 0 Sodium 138 Potassium 3.9 Chloride 108 H Carbon Dioxide 26.0 Anion Gap 4 L BUN 17 Creatinine 0.98 Est GFR (MDRD) Af Amer 72 Est GFR (MDRD) Non-Af 59 L BUN/Creatinine Ratio 17.3 Glucose 101 Calcium 9.1 Troponin I High Sens 6 5 B-Natriuretic Peptide 40.0 Radiography X-Ray: Read by ED Physician Diagnostic Testing: Clinical Impression(s) from Imaging Studies Chest X-Ray 07/30/23 13:59 IMPRESSION: Mild cardiomegaly. Electronically Signed: Tex Harvey MD at 14:37 EDT , Venous Doppler Study 07/30/23 14:37 Interpretation Summary Deep veins of the right lower extremity are patent and compressible segmentally. There is no evidence of right lower extremity deep vein thrombosis. The right great saphenous vein appears patent and compressible segmentally. Hypoechoic, non vascular structure noted right popliteal fossa measuring 0.70cm x 2.67cm. Ordering Physician: Oma Braswell Referring Physician: David Chambers Performed By: Mikayla Perez, YEE, RVT Initial EKG: Comments: Sinus rhythm with first-degree AV block, no ST elevation, reviewed and interpreted by attending ED physician <Dr. Herrera Ramsay, DO - Last Filed: 07/30/23 20:03> MDM MDM Narrative Medical decision making narrative: Patient presenting due to intermittent palpitations she has had over the past week.. She has not had any chest pain. She reports pain to her right calf with previous DVT, venous duplex ultrasound was obtained and is negative. Chest x-ray shows cardiomegaly with no other cardiopulmonary abnormality. CBC and BMP are unremarkable, BNP and troponin WNL. She is not in any arrhythmia here and is on metoprolol. She is picking up a Holter monitor tomorrow through cardiology. She does have a scheduled appointment with cardiology in the next few weeks. Encouraged her to follow-up with her PCP, return instructions were given and patient discharged home in stable condition. Interventions / MDM: Differential diagnosis: Palpitations, musculoskeletal Pain Diagnosis considered but do not suspect: ACS however EKG cardiac enzymes negative. DVT however ultrasound negative. My EKG interpretation: Sinus rhythm Imaging independently reviewed and interpreted by myself: 1 view chest x-ray: Mild cardiomegaly, no acute process also read by radiology. Right lower extremity ultrasound negative for DVT. External documents reviewed: N/A Test considered but not ordered:N/A ED course: Attending note: Patient seen and evaluated with it infrastructure specialist. I perform my own [id number] evaluation. I agree with the plan of work-up. Intermittent palpitations with lightheaded symptoms over the past week. Times will last for an hour. 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 Has had breakthrough issues intermittently. Is on metoprolol. Was seen Dr. Cheney previously. Had symptoms this morning. Called cardiology office had plans for outpatient Holter monitor however referred to the ED for evaluation. Also reports right calf pain for the past week. History of DVT in the past. No current anticoagulants. No recent travel or surgeries. No chest pains. Patient EKG sinus rhythm. Labs were ordered, DVT studies. Patient workup negative. Discussed respiratory therapy for potential 48-hour Holter monitor however none available. Therefore patient will call cardiology for 1 to be placed outpatient. Return precautions. Re-evaluation: stable Disposition discussed with patient/family/significant other: Patient Case discussed with consulting clinician: N/A This note was generated with [employer] dictation software. It may contain incorrect words, spelling, and punctuation that were not noted in checking the note before signing. Lab Data Attestation: I reviewed the patient's lab results. Labs: Laboratory Results - last 24 hr 07/30/23 07/30/23 14:10 16:19 WBC 7.1 RBC 5.09 Hgb 15.1 H Hct 47.4 H MCV 93.1 MCH 29.7 MCHC 31.9 L RDW Std Deviation 46.5 H RDW Coeff of Rekha 13.6 Plt Count 258 MPV 9.8 Immature Gran % (Auto) 0.100 Neut % (Auto) 39.1 L Lymph % (Auto) 48.7 H [place] % (Auto) 8.2 Eos % (Auto) 2.8 Baso % (Auto) 1.1 H Absolute Neuts (auto) 2.8 Absolute Lymphs (auto) 3.45 Nucleated RBC % 0 Sodium 138 Potassium 3.9 Chloride 108 H Carbon Dioxide 26.0 Anion Gap 4 L BUN 17 Creatinine 0.98 Est GFR (MDRD) Af Amer 72 Est GFR (MDRD) Non-Af 59 L BUN/Creatinine Ratio 17.3 Glucose 101 Calcium 9.1 Troponin I High Sens 6 5 B-Natriuretic Peptide 40.0 Radiography Diagnostic Testing: Clinical Impression(s) from Imaging Studies Chest X-Ray 07/30/23 13:59 IMPRESSION: Mild cardiomegaly. Electronically Signed: Tex Harvey MD at 14:37 EDT , Venous Doppler Study 07/30/23 14:37 Interpretation Summary Deep veins of the right lower extremity are patent and compressible segmentally. There is no evidence of right lower extremity deep vein thrombosis. The right great saphenous vein appears patent and compressible segmentally. Hypoechoic, non vascular structure noted right popliteal fossa measuring 0.70cm x 2.67cm. Ordering Physician: Oma Braswell Referring Physician: David Chambers Performed By: Mikayla Perez RDCS, RVT Discharge Plan Triage Chief Complaint: Palpitations ED Midlevel Provider: Oma Braswell ED Provider: Herrera Ramsay Dx/Rx/DC Orders Clinical Impression: Heart palpitations, History of PSVT (paroxysmal supraventricular tachycardia), Strain of right calf muscle Instructions: ED Understanding Supraventricular Tachycardia (SVT) Prescriptions: No Action multivitamin Tablet 1 tab PO DAILY prednisone 10 mg tablet 10 mg PO DAILY PRN cyanocobalamin (vitamin B-12) 1,000 mcg tablet 1,000 mcg PO DAILY hydroxychloroquine 200 mg tablet 200 mg PO BID amitriptyline 100 mg tablet 100 mg PO QHS methylprednisolone [Medrol (Jose Alfredo)] 4 mg tablets,dose pack See Rx Instructions PO PER PKG DIR Qty: 21 0RF Rx Instructions: PO PER PKG DIR levothyroxine 175 MCG tablet 175 mcg PO DAILY Patient Comments: thyroid pill loperamide 2 MG capsule 2 mg PO DAILY PRN (Reason: Diarrhea) Patient Comments: diarrhea pantoprazole 40 MG tablet 40 mg PO DAILY Patient Comments: acid reflux triamterene-hydrochlorothiazid 1 EACH tablet 1 tab PO DAILY Patient Comments: BP fluticasone propionate 1 SPRAY spray,suspension 1 spray NASAL DAILY Patient Comments: allergies nabumetone 500 MG tablet 1,000 mg PO DAILY Patient Comments: pain montelukast 10 MG tablet 10 mg PO DAILY Patient Comments: allergies albuterol sulfate 1 INHALER inhaler 2 puff INHALATION Q6H PRN PRN (Reason: Asthma) Patient Comments: cough, SOB duloxetine 60 MG capsule 60 mg PO DAILY Patient Comments: antidepressant levetiracetam 1,000 MG tablet for suspension 1,000 mg PO DAILY Patient Comments: NERVE PAIN adalimumab 40 mg/0.8 mL syringe kit 40 mg subcut FR gabapentin 300 mg capsule 300 mg PO BID amoxicillin 500 mg capsule 500 mg PO .COMPLEX PRN (Reason: Take 2000mg within 1 hr of dental procedure.) Qty: 4 0RF Rx Instructions: 500 mg PO PRN; Take 4 tabs or 2000mg within 1 hour of dental procedure, 1 time only. metoprolol tartrate 100 mg tablet 100 mg PO BID Qty: 180 3RF Primary Care Provider: David Chambers Referrals: Edwrad Monahan MD [Med Staff - Active Staff] - 5-7 Days David Chambers MD [Primary Care Provider] - Activity Restrictions/Additional Instructions: Please follow-up with cardiology and return for any worsening of your symptoms. Print Language: Russian Disposition Disposition: Home, Self Care Discharge Date/Time: 07/30/23 17:00
[2023-07-30 15:54] VITALS: BP 149/80; PULSE 66; RESP 17; O2SAT 93
[2023-07-30 16:13] LABS: Reflex Troponin-HS? (from REC) Y
[2023-07-30 16:43] LABS: Troponin-I HS 5 pg/mL (3.0-54.0)
[2023-07-30 16:54] VITALS: BP 148/82; PULSE 56; RESP 18; TEMP 36.4; O2SAT 98
== END 2023-07-30 17:00 | disposition home or self-care (01) ==
PROVIDERS: Emergency Provider Emergency Medicine; PCP Family Medicine; Visit Provider Emergency Medicine
DX: R00.2 Palpitations (principal); R42 Dizziness and giddiness; Z86.718 Personal history of other venous thrombosis and embolism; K21.9 Gastro-esophageal reflux disease without esophagitis; S86.911A Strain of unspecified muscle(s) and tendon(s) at lower leg level, right leg, initial encounter; X58.XXXA Exposure to other specified factors, initial encounter; R06.02 Shortness of breath
CPT/HCPCS: 71045; 80048; 83880; 84484; 85025; 93005; 93971; 99283; A4216

== ENCOUNTER → 2023-07-31 | Outpatient (CLI) | payer MEDICARE, SELFPAY ==
[2023-07-31 10:16] LABS: Absolute Neutrophil Count 3.1 X10^3/uL (2.0-7.7); Basophil# 0.09 X10^3/uL; Basophil% 1.4 % (0-1); Eosinophil# 0.22 X10^3/uL; Eosinophils% 3.3 % (0-5); Hematocrit 44.2 % (37-47); Hemoglobin 14.1 g/dL (12.0-15.0); Lymphocyte % 39.5 % (19-41); Mean Corp Hgb Conc 31.9 g/dL (32-36); Mean Corpuscular Hgb 29.7 pg (27.0-32.0); Mean Corpuscular Volume 93.2 fL (81-99); Mean Platelet Vol. 9.8 fl (6.2-12.0); Monocyte# 0.57 X10^3/uL; Monocyte% 8.6 % (0-10); NRBC Flagged by Analyzer 0 % (0-5); Neutrophil # 3.09 X10^3/uL (2.7-7.7); Neutrophil % 46.9 % (47-70); Platelet Count 263 K/mm3 (150-450); RBC Distribution Width CV 13.4 % (11.6-14.6); RBC Distribution Width SD 45.8 fl (35.1-43.9); Red Blood Count 4.74 M/mm3 (4.2-5.4); White Blood Count 6.6 K/mm3 (4.4-11.0)
[2023-07-31 10:30] LABS: D-Dimer Quantitative (DVT/PE) 0.91 FEU/ug/m (0.27-0.49)
[2023-07-31 11:15] LABS: ALB/GLOB Ratio 0.9 RATIO (0.9-2.4); AST(SGOT) 29 U/L (15-37); Alanine Aminotransfer ALT/SGPT 44 U/L (13-56); Albumin, Serum 3.3 g/dL (3.2-5.0); Alkaline Phosphatase 69 U/L (45-117); Anion Gap 4 (5-15); BUN 20 mg/dL (7-18); BUN/Creat Ratio 19.6 RATIO (10-20); Calcium,Total 8.6 mg/dL (8.5-10.1); Chloride 108 mmol/L (98-107); Cholesterol 137 mg/dL (200); Creatinine, Serum 1.02 mg/dL (0.55-1.02); EST Glomerular Filtration Rate 57 mL/min (>60); Est Glom Filt Rate - Afr Amer 69 mL/min (>60); Free T3 2.1 pg/mL (2.18-3.98); Globulin 3.6 g/dL (2.2-4.2); Glucose 88 mg/dL (74-106); High Density Lipoprotein 43 mg/dL; Magnesium 2.2 mg/dL (1.6-2.6); Potassium 4.2 mmol/L (3.5-5.1); Protein, Total 6.9 g/dL (6.4-8.2); Sodium Level 137 mmol/L (136-145); T4 Free Direct 1.24 ng/dL (0.76-1.46); T4 Total, Thyroxin 10.8 ug/dL (4.8-13.9); Thyroid Stim Hormone (TSH) 3.31 uIU/mL (0.358-3.74); Triglycerides 230 mg/dL; Very Low Density Lipoprotein 46 mg/dL (5-40)
--- NOTE | 2023-07-31 11:44 | CT_ITS ---
STUDY: CTA CHEST REASON FOR EXAM: Female, 72 years old. r/o Pulmonary Embolism RADIATION DOSAGE (If Supplied By Facility): CTDIvol = ( 16.22 ) mGy, DLP = ( 527.19 ) mGycm TECHNIQUE: The examination was performed with the intravenous administration of IV 100mL Isovue-370. Post-processing of the angiographic images was performed, with multiplanar reformation and 3D reconstruction. Individualized dose optimization techniques were used for this CT. COMPARISON: Comparison is made with prior CT scan of thorax dated July 14, 2021. Comparison is also made with prior chest radiograph dated July 30, 2023. FINDINGS: Normal enhancement of the main pulmonary artery and right and left pulmonary arteries. Normal enhancement of the bilateral peripheral pulmonary arteries. There is no demonstrated pulmonary embolism. There is evidence of enlargement of the main pulmonary artery suggestive of possible pulmonary hypertension. Normal thoracic aorta and visualized great vessels. There is no demonstrated aortic dissection. Normal heart and pericardium. Mild coronary artery calcification. Normal mediastinum. Normal hilar regions. Normal visualized trachea and bronchi. The lungs are well expanded. There is evidence of a groundglass appearance in both lungs involving both upper and lower lobes. Stable 10 mm noncalcified nodule in the anterior aspect of the right middle lobe as seen on axial image #161 and coronal image #108. Stable 6.7 mm noncalcified nodule in the posterior medial segment of the left lower lobe as seen on axial image #129. Stable 7 mm noncalcified nodule in the peripheral lateral aspect of the left lower lobe as seen on axial image #122. Normal pleura. Normal chest wall structures. There are degenerative changes of thoracic spine. The patient is status post right shoulder replacement. The patient is status post cholecystectomy. CT/CTA Chest W/WO Contrast IMPRESSION: No evidence of pulmonary embolism. Bilateral groundglass appearance in both lungs suggestive of either patchy bilateral pneumonias versus a inflammatory process. Stable nodule in the right middle lobe as well as in the left lower lobe. Electronically Signed: Tex Harvey MD at 13:06 EDT ,
== END | disposition home or self-care (01) ==
PROVIDERS: PCP Family Medicine; Referring Provider Nurse Practitioner Gerontology; Visit Provider Nurse Practitioner Gerontology
DX: I10 Essential (primary) hypertension (principal); M06.09 Rheumatoid arthritis without rheumatoid factor, multiple sites; E03.9 Hypothyroidism, unspecified; Z79.899 Other long term (current) drug therapy
CPT/HCPCS: 36415; 71275; 80053; 80061; 83735; 84436; 84439; 84443; 84481; 85025; 85379; 93225; 93226; Q9967

== ENCOUNTER 2023-08-06 00:40 | Inpatient (IN) | payer MEDICARE, SELFPAY ==
[2023-08-06] VITALS (34 sets, daily range): BP systolic 86–147; BP diastolic 65–120; PULSE 59–152; RESP 12–24; TEMP 35.9–37.6; O2SAT 91–98; BMI 57.6
--- NOTE | 2023-08-06 01:03 | EKG12_ITS ---
Test Reason : DYSRHYTHMIA Blood Pressure : / mmHG Vent. Rate : 141 BPM Atrial Rate : 000 BPM P-R Int : 000 ms QRS Dur : 088 ms QT Int : 314 ms P-R-T Axes : 000 012 035 degrees QTc Int : 480 ms Critical Test Result: High HR Atrial fibrillation with rapid ventricular response Abnormal ECG Confirmed by HARSHAL DICKSON, SONIA ([id number]), technical editor BRANDEE RIVERA ([id number]) on 08/06/2023 10:09:01 AM Referred By: CLIFFORD Confirmed By:SONIA CAPUTO MD
--- NOTE | 2023-08-06 01:07 | ED.VIS.CHEST ---
HPI History of Present Illness Chief Complaint: Palpitations Informant: patient Narrative Narrative: Patient states has been having palpitations that feel like rapid heartbeat for the past 1 to 2 weeks, another episode tonight for the past 3 hours where he has felt worse. Associated with lightheadedness no syncope. She has also had chest discomfort all day today even before this started tonight, she states it feels like a dull ache substernal without radiation. She gets a little short of breath when she has the palpitations but she is not dyspneic when the palpitations are gone. She denies a cough. When she was seen in the ER for this a week ago, she had studies to rule out DVT and PE but incidentally was seen that she had bilateral groundglass infiltrates of unknown significance. When she followed up with her doctor she was put on Augmentin. She has noticed no major difference in any of the symptoms, still having the palpitations off-and-on yesterday and today but worse at this current time. History of SVT in the past that resolved with adenosine but not many episodes of that. When she was seen here last week she was in a sinus rhythm and the palpitations/rhythm disturbance did not recur, she had a Holter monitor for 24 hours after that and had no symptoms during that and the report was uneventful according to the patient. [facility] Medical History Contact with and (suspected) exposure to other viral communicable diseases URI (upper respiratory infection) History of DVT (deep vein thrombosis) SVT (supraventricular tachycardia) Essential hypertension Wound infection after surgery Depression Hypothyroidism Seizure disorder Vitamin B12 deficiency Vitamin D deficiency Diarrhea Insomnia Allergic rhinitis GERD (gastroesophageal reflux disease) Morbid obesity Right rotator cuff tear Rheumatoid arthritis Home Medications ?Medication ?Instructions ?Recorded ?Last Taken ?Type fluticasone propionate 50 1 spray NASAL DAILY 11/29/15 Unknown History mcg/actuation nasal spray,suspension levothyroxine 175 mcg tablet 175 mcg PO DAILY 11/29/15 08/01/17 06:00 History loperamide 2 mg capsule 2 mg PO DAILY PRN Diarrhea 11/29/15 01/26/17 05:00 History 2 MG nabumetone 500 mg tablet 500 mg PO DAILY 11/29/15 Unknown History pantoprazole 40 mg tablet,delayed 40 mg PO DAILY 11/29/15 08/01/17 06:00 History release triamterene 37.5 1 tab PO DAILY 11/29/15 Unknown History mg-hydrochlorothiazide 25 mg tablet albuterol sulfate 90 mcg/actuation 2 puff inhalation Q6H PRN PRN 12/12/16 Unknown History aerosol inhaler Asthma duloxetine 60 mg capsule,delayed 60 mg PO DAILY 12/12/16 Unknown History release adalimumab 40 mg/0.8 mL 40 mg subcut FR 09/29/20 Unknown History subcutaneous syringe kit amitriptyline 100 mg tablet 150 mg PO QHS 09/29/20 Unknown History gabapentin 300 mg capsule 300 mg PO BID nerve pain 09/30/20 Unknown History hydroxychloroquine 200 mg tablet 200 mg PO BID 09/30/20 Unknown History multivitamin 1 tab PO DAILY 09/30/20 Unknown History prednisone 10 mg tablet 10 mg PO DAILY PRN RA flair 09/30/20 Unknown History metoprolol tartrate 100 mg tablet 100 mg PO BID #180 tabs 10/19/21 Unknown Rx amoxicillin 875 mg-potassium 1 tab PO BID 08/06/23 Unknown History clavulanate 125 mg tablet Allergy/AdvReac Type Severity Reaction Status Date / Time adhesive tape Allergy Rash Verified 08/06/23 00:45 codeine Allergy Hives Verified 08/06/23 00:45 Opioids - Morphine Analogues Allergy Hives Verified 08/06/23 00:45 fosinopril (From Monopril) AdvReac severe Verified 08/06/23 00:45 cough Family History Brother Colon cancer Lung cancer Mother Hypertension Thyroid disorder Father Ulcer Lung cancer Surgical History History of bilateral cataract extraction History of cholecystectomy Hx of gastric bypass Encounter for incision and drainage procedure Status post reverse total replacement of right shoulder S/P rotator cuff repair H/O: hysterectomy Social History Smoking Status: Never smoker second hand exposure: No alcohol intake: never substance use type: does not use caffeine: Yes seatbelt use: always ROS ROS ED Constitutional Constitutional ED: Denies chills or fever(s) Eyes Eyes: Denies change in vision or diplopia ENT ENT ED: Denies rhinorrhea or sore throat Cardiovascular Cardiovascular: Reports as per HPI, chest pain, lightheadedness, palpitations and racing heartbeat; Denies syncope Respiratory/Chest Respiratory/Chest: Reports dyspnea; Denies cough Gastrointestinal Gastrointestinal: Denies abdominal pain, diarrhea, nausea or vomiting Genitourinary Genitourinary ED: Denies dysuria or hematuria Musculoskeletal Musculoskeletal: Denies back pain or neck pain Integumentary Denies abscess or rash Neurologic Neurologic: Denies headache(s), paresthesias or weakness Psychiatric Psychiatric: Denies suicidal thoughts EXAM Physical Exam Const Vital Signs: 08/06/23 00:40 08/06/23 00:43 08/06/23 01:03 Temperature 99.7 F H Temperature Source Oral Pulse Rate 136 H Respiratory Rate 20 H Respiratory Effort Short of Breath Respiratory Pattern Tachypnea Blood Pressure 147/84 H Blood Pressure Mean 105 Pulse Ox 92 Oxygen Delivery Method Room Air Room Air 08/06/23 01:12 08/06/23 01:15 08/06/23 01:30 Temperature Temperature Source Pulse Rate 133 H 140 H 103 H Respiratory Rate 22 H 18 23 H Respiratory Effort Respiratory Pattern Blood Pressure 144/85 H 128/75 H Blood Pressure Mean 103 92 Pulse Ox 97 95 92 Oxygen Delivery Method Positive well nourished, well developed and obese General Appearance ED: well developed and NAD Nutritional Appearance: obese HEENT Reports moist mucous membranes normocephalic and atraumatic Eyes PERRL and EOMs intact bilaterally Neck full ROM and supple Chest Wall inspection of chest normal and palpation of chest normal Resp normal respiratory effort and clear to auscultation bilaterally Cardio Rate: tachycardic and other Other Details: For the most part seems regular Peripheral Pulses: pulses 2+ throughout GI non-tender and non-distended Auscultation: normoactive bowel sounds Palpation: soft Back/Spine no CVA tenderness General Back: other FROM Extremity normal to inspection General Extremety ED: Yes edema; Negative for pulses abnormal or tenderness General Extremity: edema bilateral lower extremity Details: moderate (With symmetric changes of chronic stasis dermatitis distal pretibial lower extremities); Negative for pulses abnormal Neuro oriented x3, CN's II-XII intact bilaterally and no sensory deficits noted Sensorium / Orientation: awake and alert Motor Exam: strength 5/5 throughout Psych mental status grossly normal Skin no rashes or lesions noted and no wounds MDM MDM MDM Narrative Medical decision making narrative: EKG shows a narrow complex tachycardia most likely consistent with rapid A-fib, but it is so fast in the 140s that AVNRT is in a differential, as is AVRT. Therefore we started with giving her adenosine, with 6 mg she went down to the 120s but it still was not obvious if this is A-fib or not, we then gave her 12 mg and it became very clear that she appears to be in A-fib versus atrial flutter, most likely atrial fibrillation. It did not break her rhythm, she went back into the 130s after the medication wore off. She was then given Cardizem 20 mg while we awaited the rest of the workup. I reviewed this, 2 view chest x-ray negative for anything acute on my interpretation, troponin within normal limits, her other labs are unremarkable except for mild prerenal azotemia. Still tachycardic in the 120s after the Cardizem so she was started on a drip, and since she is already on metoprolol 100 mg twice daily, I feel admission is warranted. History & Record Review Additional record(s) reviewed:: Prior ED visit and Prior labs (and CTA chest, venous dopplers BLE) Lab Data Labs: Laboratory Results - last 24 hr 08/06/23 00:52 WBC 9.7 RBC 4.86 Hgb 14.4 Hct 45.2 MCV 93.0 MCH 29.6 MCHC 31.9 L RDW Std Deviation 46.2 H RDW Coeff of Rekha 13.7 Plt Count 215 MPV 9.9 Immature Gran % (Auto) 0.200 Neut % (Auto) 57.9 Lymph % (Auto) 31.4 Weber % (Auto) 7.7 Eos % (Auto) 2.0 Baso % (Auto) 0.8 Absolute Neuts (auto) 5.6 Absolute Lymphs (auto) 3.05 Nucleated RBC % 0 Sodium 139 Potassium 4.4 Chloride 106 Carbon Dioxide 26.0 Anion Gap 7 BUN 28 H Creatinine 0.96 Estim Creat Clear Calc 77.96 Est GFR (MDRD) Af Amer 73 Est GFR (MDRD) Non-Af 61 BUN/Creatinine Ratio 29.0 H Glucose 140 H Calcium 9.7 Troponin I High Sens 6 Rhythm Strip Rhythm Strip: Narrow complex tachycardia Rate: 135 Ectopy: None EKG Initial EKG: Attestation: I personally reviewed and interpreted this EKG as follows: Comments: Narrow complex tachycardia without definitive P waves, however EKG limited due to rate of about 141. Prior EKG tracings: available for review Prior: Changed (rhythm not currently sinus; morphology grossly unchanged) Management Discussion w/another healthcare provider: Hospitalist Critical Care Time Critical Care Time: Yes Critical care time (excluding procedures): 30-74 minutes (33 min), Including time spent:, Discussing w/Patient &/or Family/Vice President Digital Strategist, Discussing w/Consultants, Arranging Admission or Transfer and Performing Direct Patient Care at Bedside Discharge Plan Triage Chief Complaint: Palpitations ED Provider: Mario Patterson Dx/Rx/DC Orders Clinical Impression: Atrial fibrillation with RVR, Chest pain Prescriptions: No Action multivitamin Tablet 1 tab PO DAILY prednisone 10 mg tablet 10 mg PO DAILY PRN (Reason: RA flair) hydroxychloroquine 200 mg tablet 200 mg PO BID amitriptyline 100 mg tablet 150 mg PO QHS levothyroxine 175 MCG tablet 175 mcg PO DAILY Patient Comments: thyroid pill loperamide 2 MG capsule 2 mg PO DAILY PRN (Reason: Diarrhea) Patient Comments: diarrhea pantoprazole 40 MG tablet 40 mg PO DAILY Patient Comments: acid reflux triamterene-hydrochlorothiazid 1 EACH tablet 1 tab PO DAILY Patient Comments: BP fluticasone propionate 1 SPRAY spray,suspension 1 spray NASAL DAILY Patient Comments: allergies nabumetone 500 MG tablet 500 mg PO DAILY Patient Comments: pain albuterol sulfate 1 INHALER inhaler 2 puff INHALATION Q6H PRN PRN (Reason: Asthma) Patient Comments: cough, SOB duloxetine 60 MG capsule 60 mg PO DAILY Patient Comments: antidepressant adalimumab 40 mg/0.8 mL syringe kit 40 mg subcut FR gabapentin 300 mg capsule 300 mg PO BID amoxicillin-pot clavulanate 875-125 mg tablet 1 tab PO BID metoprolol tartrate 100 mg tablet 100 mg PO BID Qty: 180 3RF Primary Care Provider: David Chambers Referrals: David Chambers MD [Primary Care Provider] - Print Language: Trinidadian Disposition Disposition: Acute Care [facility]
[2023-08-06] MEDS: 0.9% Normal Saline (1000mL) 1,000 ML 100 ML IV (01:14)
[2023-08-06] MEDS: Adenosine 6 MG/2 ML Syringe IV (01:16)
[2023-08-06] MEDS: Adenosine 6 MG/2 ML Syringe 12 MG IV (01:19)
[2023-08-06 01:21] LABS: Absolute Lymphocyte Count 3.05 X10^3/uL (0.83-4.51); Absolute Neutrophil Count 5.6 X10^3/uL (2.0-7.7); Basophil# 0.08 X10^3/uL; Basophil% 0.8 % (0-1); Eosinophil# 0.19 X10^3/uL; Hematocrit 45.2 % (37-47); Hemoglobin 14.4 g/dL (12.0-15.0); Lymphocyte # 3.05 X10^3/ul (0.83-4.51); Lymphocyte % 31.4 % (19-41); Mean Corp Hgb Conc 31.9 g/dL (32-36); Mean Corpuscular Hgb 29.6 pg (27.0-32.0); Mean Platelet Vol. 9.9 fl (6.2-12.0); Monocyte# 0.75 X10^3/uL; Monocyte% 7.7 % (0-10); NRBC Flagged by Analyzer 0 % (0-5); Neutrophil # 5.63 X10^3/uL (2.7-7.7); Neutrophil % 57.9 % (47-70); Platelet Count 215 K/mm3 (150-450); RBC Distribution Width CV 13.7 % (11.6-14.6); RBC Distribution Width SD 46.2 fl (35.1-43.9); Red Blood Count 4.86 M/mm3 (4.2-5.4); White Blood Count 9.7 K/mm3 (4.4-11.0)
[2023-08-06] MEDS: dilTIAZem 25 MG/5 ML Vial 20 MG IV BOLUS (01:21)
[2023-08-06] MEDS: Aspirin 81 MG TAB.CHEW 162 MG PO (01:21)
--- NOTE | 2023-08-06 01:40 | RAD_ITS ---
INDICATION: CHEST PAIN, SOB EXAMINATION/TECHNIQUE: X-RAY - XR Chest 2 Views COMPARISON: Prior study dated: 07/30/2023 FINDINGS: LINES/DEVICES: Reverse total right shoulder arthroplasty. LUNGS: The lungs are well expanded. No consolidation, edema or effusion. No pneumothorax. MEDIASTINUM AND CARDIOVASCULAR STRUCTURES: Cardiac silhouette not enlarged. Central airways and mediastinal contour are unremarkable. BONES AND SOFT TISSUES: No acute abnormality. RAD/Chest PA and Lateral IMPRESSION: No acute pulmonary finding. Electronically Signed: Ronen Vences MD at 2:13 EDT ,
[2023-08-06 01:45] LABS: Anion Gap 7 (5-15); BUN 28 mg/dL (7-18); Calcium,Total 9.7 mg/dL (8.5-10.1); Chloride 106 mmol/L (98-107); Creatinine, Serum 0.96 mg/dL (0.55-1.02); EST Glomerular Filtration Rate 61 mL/min (>60); Est Glom Filt Rate - Afr Amer 73 mL/min (>60); Estimated Creatinine Clearance 77.96 ml/min; Glucose 140 mg/dL (74-106); Potassium 4.4 mmol/L (3.5-5.1); Sodium Level 139 mmol/L (136-145); Troponin-I HS 6 pg/mL (3.0-54.0)
--- NOTE | 2023-08-06 02:03 | HP.PCM.HOS_ITS ---
HPI - General General Date of Admission: 08/06/23 Date of Service: 08/06/23 Chief Complaint: New onset A-fib with RVR HPI Narrative JORDAN BLUM, is a 72 F who presented to [facility] ED on 08/06/2023 with new onset A-fib with RVR. Saw patient at bedside in the ED, nephew present. Patient was sitting up comfortably in bed, conversing normally, in no acute distress. Patient was recently seen in the ED on 07/29 for heart palpitations. She noted at that time that she had felt intermittent episodes of palpitations for about 1 week. Has a history of SVT and is on Lopressor 100 mg twice daily. In the ED she was noted to be in normal sinus rhythm and workup was otherwise unremarkable so she was discharged home. She completed a 24-hour Holter monitor on 07/30 and no A-fib/flutter was detected. She again had an episode of palpitations in the evening of 08/04 that lasted for several hours so she came to the ED for further evaluation. On arrival here, was noted that her heart rate was in the 140s. EKG showed a narrow complex tachycardia but was difficult to ascertain the underlying rhythm. Was given adenosine 6 mg and heart rate went down to the 120s but underlying rhythm still was not obvious, so she was given this in 12 mg and it was clear that the underlying rhythm was A- fib versus a flutter. The adenosine did not break her rhythm and continue to sustain in the 130s to 140s. She was given a bolus of IV Cardizem and started on a Cardizem drip at that time. On my encounter, patient's heart rate was consistently in the 110s and appeared to be A-fib. She did report a mild fluttering feeling in her chest but this was improved from previous. She denied any shortness of breath at rest or fever/chills. Patient has a BMI of 57 and does have a history of EMMETT. States she has not used her CPAP for at least a few years as it was uncomfortable for her, but she would be willing to start using it again. She does report mild shortness of breath with exertion over the past week or so. Patient lives at home alone. She typically uses a walker for ambulation at home. She does have family that lives nearby to help when needed. She has felt slightly weaker than her baseline over the past week or so. She otherwise has been eating and drinking normally. She notably has a history of DVT 5 to 6 years ago. States she completed a 3-month course of Eliquis at that time and tolerated it without issue. Vitals in ED notable for A-fib with RVR, was otherwise normotensive and satting in mid 90s on room air at rest. CBC and BMP unremarkable. Troponin negative. BNP notably was 40 on 07/29, repeat pending. Chest x-ray was nonacute. Notably had CTA chest done on 07/30 that was negative for PE. [facility] Medical History Contact with and (suspected) exposure to other viral communicable diseases URI (upper respiratory infection) History of DVT (deep vein thrombosis) SVT (supraventricular tachycardia) Essential hypertension Wound infection after surgery Depression Hypothyroidism Seizure disorder Vitamin B12 deficiency Vitamin D deficiency Diarrhea Insomnia Allergic rhinitis GERD (gastroesophageal reflux disease) Morbid obesity Right rotator cuff tear Rheumatoid arthritis Home Medications ?Medication ?Instructions ?Recorded ?Last Taken ?Type fluticasone propionate 50 1 spray NASAL DAILY 11/29/15 Unknown History mcg/actuation nasal spray,suspension levothyroxine 175 mcg tablet 175 mcg PO DAILY 11/29/15 08/01/17 06:00 History loperamide 2 mg capsule 2 mg PO DAILY PRN Diarrhea 11/29/15 01/26/17 05:00 History 2 MG nabumetone 500 mg tablet 500 mg PO DAILY 11/29/15 Unknown History pantoprazole 40 mg tablet,delayed 40 mg PO DAILY 11/29/15 08/01/17 06:00 History release triamterene 37.5 1 tab PO DAILY 11/29/15 Unknown History mg-hydrochlorothiazide 25 mg tablet albuterol sulfate 90 mcg/actuation 2 puff inhalation Q6H PRN PRN 12/12/16 Unknown History aerosol inhaler Asthma duloxetine 60 mg capsule,delayed 60 mg PO DAILY 12/12/16 Unknown History release adalimumab 40 mg/0.8 mL 40 mg subcut FR 09/29/20 Unknown History subcutaneous syringe kit amitriptyline 100 mg tablet 150 mg PO QHS 09/29/20 Unknown History gabapentin 300 mg capsule 300 mg PO BID nerve pain 09/30/20 Unknown History hydroxychloroquine 200 mg tablet 200 mg PO BID 09/30/20 Unknown History multivitamin 1 tab PO DAILY 09/30/20 Unknown History prednisone 10 mg tablet 10 mg PO DAILY PRN RA flair 09/30/20 Unknown History metoprolol tartrate 100 mg tablet 100 mg PO BID #180 tabs 10/19/21 Unknown Rx amoxicillin 875 mg-potassium 1 tab PO BID 08/06/23 Unknown History clavulanate 125 mg tablet Allergy/AdvReac Type Severity Reaction Status Date / Time adhesive tape Allergy Rash Verified 08/06/23 00:45 codeine Allergy Hives Verified 08/06/23 00:45 Opioids - Morphine Analogues Allergy Hives Verified 08/06/23 00:45 fosinopril (From Monopril) AdvReac severe Verified 08/06/23 00:45 cough Family History Brother Colon cancer Lung cancer Mother Hypertension Thyroid disorder Father Ulcer Lung cancer Surgical History History of bilateral cataract extraction History of cholecystectomy Hx of gastric bypass Encounter for incision and drainage procedure Status post reverse total replacement of right shoulder S/P rotator cuff repair H/O: hysterectomy Social History Smoking Status: Never smoker second hand exposure: No alcohol intake: never substance use type: does not use caffeine: Yes seatbelt use: always ROS Constitutional Constitutional: Reports fatigue and weakness; Denies chills or fever(s) Cardiovascular Cardiovascular: Reports dyspnea on exertion, palpitations and rapid heart rate; Denies chest pain, edema, lightheadedness or syncope Respiratory/Chest Respiratory/Chest: Denies cough, shortness of breath at rest or wheezing Gastrointestinal Gastrointestinal: Denies abdominal pain Neurologic Neurologic: Denies dizziness, focal weakness or headache(s) Vital Signs Vital Signs Vital Signs: 08/06/23 00:40 08/06/23 00:43 08/06/23 01:03 Temperature 99.7 F H Temperature Source Oral Pulse Rate 136 H Respiratory Rate 20 H Respiratory Effort Short of Breath Respiratory Pattern Tachypnea Blood Pressure 147/84 H Blood Pressure Mean 105 Pulse Ox 92 Oxygen Delivery Method Room Air Room Air 08/06/23 01:12 08/06/23 01:15 08/06/23 01:30 Temperature Temperature Source Pulse Rate 133 H 140 H 103 H Respiratory Rate 22 H 18 23 H Respiratory Effort Respiratory Pattern Blood Pressure 144/85 H 128/75 H Blood Pressure Mean 103 92 Pulse Ox 97 95 92 Oxygen Delivery Method Weight Weight: 147.8 kg Body Mass Index (BMI) 57.6 Physical Exam Const alert, oriented x3, no apparent distress, healthy appearing and well nourished Constitutional Narrative: Pleasant elderly female, morbidly obese, otherwise sitting up comfortably in bed, conversing normally, in no acute distress. General Appearance: cooperative and comfortable HEENT normocephalic, head/scalp atraumatic, hearing grossly normal bilaterally and nasal mucous membranes and turbinates normal Eyes PERRL, EOMs intact bilaterally and conjunctivae normal Neck full ROM Chest inspection of chest normal Resp normal respiratory effort and no use of accessory muscles Resp Narrative: Mildly decreased breath sounds bilaterally throughout suspected due to body habitus. No wheezing or crackles noted. Cardio no murmurs and peripheral pulses 2+ throughout Cardio Narrative: Tachycardic, irregular rhythm. GI normal to inspection, nondistended, normoactive bowel sounds, soft to palpation, non-tender and non-distended Back/Spine normal ROM Extremity normal to inspection, full ROM and no pedal edema Skin no rashes or lesions noted Neuro moves all extremities and no focal motor deficits Speech: speech normal Psych mental status grossly normal Results Lab / Micro Data 08/06/23 00:52 08/06/23 00:52 Labs: Laboratory Results - last 24 hr 08/06/23 00:52: WBC 9.7, RBC 4.86, Hgb 14.4, Hct 45.2, MCV 93.0, MCH 29.6, MCHC 31.9 L, RDW Std Deviation 46.2 H, RDW Coeff of Rekha 13.7, Plt Count 215, MPV 9.9, Immature Gran % (Auto) 0.200, Neut % (Auto) 57.9, Lymph % (Auto) 31.4, [place] % (Auto) 7.7, Eos % (Auto) 2.0, Baso % (Auto) 0.8, Absolute Neuts (auto) 5.6, Absolute Lymphs (auto) 3.05, Nucleated RBC % 0, Sodium 139, Potassium 4.4, Chloride 106, Carbon Dioxide 26.0, Anion Gap 7, BUN 28 H, Creatinine 0.96, Estim Creat Clear Calc 77.96, Est GFR (MDRD) Af Amer 73, Est GFR (MDRD) Non-Af 61, B UN/Creatinine Ratio 29.0 H, Glucose 140 H, Calcium 9.7, Troponin I High Sens 6 Rhythm Strip Rhythm Strip: Narrow complex tachycardia Rate: 135 Ectopy: None Assessment & Plan Assessment/Plan (1) Atrial fibrillation with RVR: PLAN: Plan Patient is a 72-year-old female who presented to [facility] ED on 08/06/2023 with new onset A-fib with RVR. 1. New onset A-fib with RVR, history of SVT ? Admit under inpatient status to PCU. Cardiology consulted. Continue Cardizem drip for now. Echo ordered. Holding home Lopressor. [id number] score of 5 (age, female, hypertension, history of DVT). Given dose of therapeutic Lovenox in the ED for anticoagulation, will defer to cardiology on determining anticoagulation agent going forward. 2. Mild acute on chronic debility ? PT/OT/case management consulted. Lives at home alone, typically uses walker for ambulation. Reports feeling somewhat weaker than her baseline over the past few weeks. Chronic medical conditions: ? Morbid obesity: BMI 57 on admit. Complicates hospital course, care and prognosis. ? EMMETT: Previously on home CPAP, has been nonadherent for the past few years. Can provide CPAP at night while inpatient if desired. Will need outpatient follow-up with sleep medicine on discharge. ? Rheumatoid arthritis: Stable, not in acute exacerbation. Continue home hydroxychloroquine and nabumetone. Can resume weekly adalimumab injections on discharge. ? Asthma, allergies: Stable, not in acute exacerbation. Continue home albuterol as needed and Flonase. ? Hypertension: On Cardizem drip as noted above. Will hold home Lopressor and triamterene?hydrochlorothiazide for now. ? GERD: Continue home PPI. ? Hypothyroidism: TSH 3.31 on 07/30. Continue home Synthroid. ? Depression/anxiety: Stable. Continue home duloxetine and amitriptyline at night. ? Neuropathy: Continue home gabapentin. ? History of DVT: Completed 3 months of Eliquis with resolution, has had no recurrence. DVT prophylaxis: Lovenox CODE STATUS: Full code, verified Expected disposition: Home, 2 to 3 days Total clinical time spent by myself addressing the patient's medical issues, reviewing all the data, and collaborating with patient's care team: 55 minutes. Charges/Coding Visit Charges Inpatient E&M: 79935 Init Hosp L2
[2023-08-06] MEDS: Diltiazem 125 MG in Dextrose 5%-Water (100mL Bag) 100 ML CONT INF (02:12)
[2023-08-06] MEDS: Enoxaparin 150 MG/ML Syringe SC (02:18)
--- NOTE | 2023-08-06 02:31 | ECHOCS_ITS ---
Reason For Study: ATRIAL FIBRILLATION Procedure This was a 2D Doppler, Color Flow transthoracic echocardiogram. The study was technically difficult. Limited views were obtained. Contrast injection was performed. Exam performed portable in patient room. Left Ventricle Normal LV size. Mild concentric left ventricular hypertrophy. Left ventricular systolic function is normal. No regional wall motion abnormalities noted. Right Ventricle Normal RV size. Normal systolic function. Atria Normal left atrium. Normal right atrium. Mitral Valve Mitral valve not well visualized. Tricuspid Valve Normal tricuspid valve. Aortic Valve The aortic valve is not well visualized. Pulmonic Valve The pulmonic valve is not well visualized. Great Vessels Normal aortic root. The pulmonary artery is normal size. Normal inferior vena cava. Pericardium/Pleural No pericardial effusion. Medication Diluted definity 3.5ml given slow IV push to enhance endocardial definition. MMode/2D Measurements & Calculations LVIDd: 4.6 cm IVSd: 1.3 cm LVOT diam: 2.0 cm LVIDs: 2.5 cm LVPWd: 1.2 cm FS: 47.2 % LVOT area: 3.2 cm2 Ao root diam: 3.7 cm LAV(MOD-bp): 46.1 ml LA A4 area: 13.2 cm2 LAV(MOD-bp) Indexed: 19.4 ml/m2 LAV(MOD-sp2): 58.0 ml LAV(MOD-sp4): 29.8 ml LA dimension(2D): 3.1 cm RA A4 area: 11.5 cm2 Time Measurements MV dec time: 0.11 sec Doppler Measurements & Calculations MV E max timothy: 61.7 cm/sec Lat Peak E' Timothy: 13.7 cm/sec Med Peak E' Timothy: 15.1 cm/sec E/E' lat: 4.5 E/E' med: 4.1 Ao V2 max: 165.5 cm/sec LV V1 max: 114.4 cm/sec SV(LVOT): 52.5 ml Ao max P.2 mmHg LV V1 max P.2 mmHg Ao V2 mean: 122.2 cm/sec LV V1 mean P.2 mmHg Ao mean P.7 mmHg LV V1 mean: 85.5 cm/sec Ao V2 VTI: 22.1 cm LV V1 VTI: 16.3 cm AV (velocity ratio): 0.74 NUHA(I,D): 2.4 cm2 NUHA(V,D): 2.2 cm2 PA V2 max: 112.4 cm/sec PA max PG (full): -1.9 mmHg ECHO/Echo Complete W/ Contrast Interpretation Summary Normal LV size. Left ventricular systolic function is normal. No regional wall motion abnormalities noted. Contrast injection was performed. Ordering Physician: Yassine Thurman Referring Physician: David Chambers Performed By: Annie Cruz RDCS
[2023-08-06 03:15] LABS: Magnesium 1.9 mg/dL (1.6-2.6)
[2023-08-06] MEDS: Acetaminophen 325 MG Tablet 650 MG PO ×3 (04:31→20:56)
[2023-08-06 04:46] LABS: BNP,B-Type NATRIURETIC PEPTIDE 24.1 pg/mL (0-100)
[2023-08-06] MEDS: Levothyroxine 175 MCG Tablet PO (06:04)
--- NOTE | 2023-08-06 08:00 | PCM.CONS.C ---
Assessment & Plan Assessment/Plan (1) Atrial fibrillation with RVR: PLAN: Patient presents with atrial fibrillation with rapid ventricular response rate which appears to be difficult to control. Her [id number] score is 3. My recommendation is for us to continue with anticoagulation with Eliquis Intravenous diltiazem for rate control Intravenous amiodarone Will eventually switch to oral beta-doris and amiodarone. Recommend holding the Plaquenil for now Obtain echocardiogram to assess ventricular function (2) Essential hypertension: PLAN: Her blood pressure appears to be under fair control. The plan to be to continue current medical therapy. We will evaluate her echocardiogram to assess her ventricular function. HPI Consult Data Date of Consult: 08/06/23 HPI Narrative HPI Narrative: JORDAN BLUM, is a 72 F who presents to [facility] with palpitations. Patient was apparently seen approximately week ago for palpitations which she has had intermittently. She was worked up in the emergency room was put on Lopressor 100 mg twice a day and was found to be in sinus rhythm in the emergency room and discharged with a 24-hour Holter monitor. This did not demonstrate any significant abnormalities. She presented again on with palpitations which were unprovoked was noted to be in atrial fibrillation with rapid ventricular response rate. Initially was not clear whether this was a narrow complex tachycardia and she was treated with intravenous adenosine and then finally diltiazem. She currently is on intravenous diltiazem consistently. She appears to be fairly comfortable but otherwise can still feel her palpitations. She denies any chest pain or paroxysmal nocturnal dyspnea or pedal edema. Approximately 5 years ago she did have lower extremity DVT and she was briefly on anticoagulation. Her evaluation in the emergency room demonstrated an EKG demonstrating atrial fibrillation with rapid ventricular response rate and had a CT scan of her chest a week ago which was negative for pulmonary embolism. [facility] Medical History Contact with and (suspected) exposure to other viral communicable diseases History of DVT (deep vein thrombosis) SVT (supraventricular tachycardia) Essential hypertension Wound infection after surgery Depression Hypothyroidism Vitamin B12 deficiency Vitamin D deficiency Insomnia Allergic rhinitis GERD (gastroesophageal reflux disease) Morbid obesity Right rotator cuff tear Rheumatoid arthritis Home Medications ?Medication ?Instructions ?Recorded ?Last Taken ?Type fluticasone propionate 50 1 spray NASAL DAILY 11/29/15 Unknown History mcg/actuation nasal spray,suspension levothyroxine 175 mcg tablet 175 mcg PO DAILY 11/29/15 08/01/17 06:00 History loperamide 2 mg capsule 2 mg PO DAILY PRN Diarrhea 11/29/15 01/26/17 05:00 History 2 MG nabumetone 500 mg tablet 500 mg PO DAILY 11/29/15 Unknown History pantoprazole 40 mg tablet,delayed 40 mg PO DAILY 11/29/15 08/01/17 06:00 History release triamterene 37.5 1 tab PO DAILY 11/29/15 Unknown History mg-hydrochlorothiazide 25 mg tablet albuterol sulfate 90 mcg/actuation 2 puff inhalation Q6H PRN PRN 12/12/16 Unknown History aerosol inhaler Asthma duloxetine 60 mg capsule,delayed 60 mg PO DAILY 12/12/16 Unknown History release adalimumab 40 mg/0.8 mL 40 mg subcut FR 09/29/20 Unknown History subcutaneous syringe kit amitriptyline 100 mg tablet 150 mg PO QHS 09/29/20 Unknown History gabapentin 300 mg capsule 300 mg PO BID nerve pain 09/30/20 Unknown History hydroxychloroquine 200 mg tablet 200 mg PO BID 09/30/20 Unknown History multivitamin 1 tab PO DAILY 09/30/20 Unknown History prednisone 10 mg tablet 10 mg PO DAILY PRN RA flair 09/30/20 Unknown History metoprolol tartrate 100 mg tablet 100 mg PO BID #180 tabs 10/19/21 Unknown Rx amoxicillin 875 mg-potassium 1 tab PO BID 08/06/23 Unknown History clavulanate 125 mg tablet Allergy/AdvReac Type Severity Reaction Status Date / Time adhesive tape Allergy Rash Verified 08/06/23 03:35 codeine Allergy Hives Verified 08/06/23 03:35 Opioids - Morphine Analogues Allergy Hives Verified 08/06/23 00:45 fosinopril (From Monopril) AdvReac severe Verified 08/06/23 03:35 cough Family History Brother Colon cancer Lung cancer Mother Hypertension Thyroid disorder Father Ulcer Lung cancer Surgical History History of bilateral cataract extraction History of cholecystectomy Hx of gastric bypass Encounter for incision and drainage procedure Status post reverse total replacement of right shoulder S/P rotator cuff repair H/O: hysterectomy Social History Smoking Status: Never smoker second hand exposure: No alcohol intake: never substance use type: does not use caffeine: Yes seatbelt use: always ROS Constitutional Constitutional: Denies fever(s) or weight loss Eyes Eyes: Reports systems reviewed and no addt'l complaints, except as documented ENT HEENT: Reports systems reviewed and no addt'l complaints, except as documented Cardiovascular Cardiovascular: Reports palpitations; Denies chest pain at rest, chest pain with activity, dyspnea at rest, dyspnea on exertion, edema or paroxysmal nocturnal dyspnea Respiratory/Chest Respiratory/Chest: Denies dyspnea on exertion, productive cough, shortness of breath at rest or shortness of breath with exertion Gastrointestinal Gastrointestinal: Denies change in bowel habits, nausea, vomiting or weight changes Genitourinary Genitourinary: Denies difficulty urinating Musculoskeletal Musculoskeletal: Denies joint stiffness or muscle weakness Integumentary Integumentary: Denies lesions Neurologic Neurologic: Denies dizziness or syncope Psychiatric Psychiatric: Denies anxiety Endocrine Endocrinology: Denies excessive sweating or fatigue Hematologic/Lymphatic Hematologic/Lymphatic: Denies anemia Allergic/Immunologic Allergic/Immunologic: Denies seasonal rhinorrhea Physical Exam Const alert, oriented x3 and no apparent distress General Appearance: cooperative HEENT hearing grossly normal bilaterally Head and Scalp: atraumatic Eyes EOMs intact bilaterally Neck General: normal visual inspection Chest inspection of chest normal and palpation of chest normal Resp normal respiratory effort Auscultation: clear to auscultation bilaterally Cardio S1 normal heart sound and S2 normal heart sound Jugular Venous Distention: JVD Rhythm: abnormal rhythm irregularly irregular GI normal to inspection, nondistended, normoactive bowel sounds Extremity normal capillary refill and no pedal edema Peripheral Pulses: Yes pulses 2+ throughout and femoral pulses present Skin no rashes or lesions noted Neuro oriented x3 and CN's II-XII intact bilaterally Psych Appearance: grossly normal and appropriate Risk Stratification Risk Stratification Applicable: No Objective Data Vital Signs: Vital Signs Temp Pulse Resp BP Pulse Ox O2 Del Method 98 F 115 H 14 139/89 H 95 Room Air 08/06/23 04:42 08/06/23 05:00 08/06/23 05:00 08/06/23 05:00 08/06/23 07:38 08/06/23 07:38 Oxygen Delivery Method Room Air Weight: 324 lb 1.272 oz Body Mass Index (BMI) 57.6 Intake & Output: Intake and Output for Last 24 Hours 08/04/23 08/05/23 08/06/23 23:59 23:59 23:59 Intake Total 20.5 / 20.5 Balance 20.5 / 20.5 Lab / Micro Data 08/06/23 00:52 08/06/23 00:52 Labs: Laboratory Results - last 24 hr 08/06/23 00:52: WBC 9.7, RBC 4.86, Hgb 14.4, Hct 45.2, MCV 93.0, MCH 29.6, MCHC 31.9 L, RDW Std Deviation 46.2 H, RDW Coeff of Rekha 13.7, Plt Count 215, MPV 9.9, Immature Gran % (Auto) 0.200, Neut % (Auto) 57.9, Lymph % (Auto) 31.4, [place] % (Auto) 7.7, Eos % (Auto) 2.0, Baso % (Auto) 0.8, Absolute Neuts (auto) 5.6, Absolute Lymphs (auto) 3.05, Nucleated RBC % 0, Sodium 139, Potassium 4.4, Chloride 106, Carbon Dioxide 26.0, Anion Gap 7, BUN 28 H, Creatinine 0.96, Estim Creat Clear Calc 77.96, Est GFR (MDRD) Af Amer 73, Est GFR (MDRD) Non-Af 61, BUN/Creatinine Ratio 29.0 H, Glucose 140 H, Calcium 9.7, Magnesium 1.9, Troponin I High Sens 6, B-Natriuretic Peptide 24.1 Rhythm Strip Rhythm Strip: Narrow complex tachycardia Rate: 135 Ectopy: None Cardiology Labs/Tests 08/06/23 00:52: WBC 9.7, RBC 4.86, Hgb 14.4, Hct 45.2, MCV 93.0, MCH 29.6, MCHC 31.9 L, Plt Count 215, MPV 9.9, Immature Gran % (Auto) 0.200, Neut % (Auto) 57.9, Lymph % (Auto) 31.4, [place] % (Auto) 7.7, Eos % (Auto) 2.0, Baso % (Auto) 0.8, Absolute Neuts (auto) 5.6, Nucleated RBC % 0, Sodium 139, Potassium 4.4, Chloride 106, Carbon Dioxide 26.0, Anion Gap 7, BUN 28 H, Creatinine 0.96, Est GFR (MDRD) Af Amer 73, Est GFR (MDRD) Non-Af 61, BUN/Creatinine Ratio 29.0 H, Glucose 140 H, Calcium 9.7, Magnesium 1.9, B-Natriuretic Peptide 24.1 Rhythm: EKG: ECHO: Stress Test: Cardiac Cath: PCI: CT Surgery: Holter monitor: EPS: PPM: CXR: Chest CT Scan: Radiography Diagnostic Testing: Radiology Impression Chest X-Ray 08/06/23 01:40 IMPRESSION: No acute pulmonary finding. Electronically Signed: Ronen Vences MD at 2:13 EDT ,
[2023-08-06] MEDS: Amiodarone 150 MG in Dextrose 5%-Water (100mL Bag) 100 ML 600 MG IV BOLUS (08:24)
--- NOTE | 2023-08-06 08:30 | NURSING ---
Echo in progress
[2023-08-06] MEDS: Amiodarone 360 MG in Dextrose 5% Viaflo Bag 192.8 ML 33.3 MG CONT INF (08:31)
[2023-08-06] MEDS: Pantoprazole Sodium 40 MG Tablet PO (10:16)
[2023-08-06] MEDS: Multivitamins,Therapeutic Tablet 1 TABLET PO (10:16)
[2023-08-06] MEDS: Hydroxychloroquine 200 MG Tablet PO (10:16)
[2023-08-06] MEDS: APIXABAN 5 MG TABLET PO ×2 (10:16→20:53)
[2023-08-06] MEDS: DULoxetine Hcl 60 MG Capsule PO (10:16)
[2023-08-06] MEDS: Etodolac 200 MG Capsule PO (10:16)
[2023-08-06] MEDS: Gabapentin 300 MG Capsule PO ×2 (10:19→20:53)
[2023-08-06] MEDS: Fluticasone 0.05% 1 SPRAY NASAL.SRY NASAL (10:19)
[2023-08-06] MEDS: Diltiazem 125 MG in Dextrose 5%-Water (100mL Bag) 100 ML 15 MG CONT INF (13:16)
[2023-08-06] MEDS: Amiodarone 360 MG in Dextrose 5% Viaflo Bag 192.8 ML 16.7 MG CONT INF (14:38)
--- NOTE | 2023-08-06 16:09 | CASEMGMT ---
MARKIE MACK Assessment Face to Face with patient for initial transition planning/care coordination assessment. MARKIE MACK introduced self and role at [facility], pt voices understanding. Pt is A&Ox4 and is resting comfortably in the chair and is calm. Care providers, pharmacy, and demographics verified. Admitting dx: New onset AFIB RVR PCP: David Chambers Specialists: Pt plans to follow with [facility] after DC Preferred Pharmacy: [facility] Insurance: [employer] MCR Prescription Benefit: Yes LNOK: Lissa Waite (Sister) Living Arrangements: Pt lives alone in a single story home with 1 step to enter ADLs/IADLs: Ind with ADLs. Requires some assistance with IADLs. Pt family provides support Transportation: Self, family DME: Rollator. FWW. Two lift chairs. Toilet side rails. Walk in shower with a shower chair. HHC/SNF: History of [facility] HH and [facility] TCU. History at but states that she cannot afford the 40 dollar co-pays per visit. Pt?s goal: Return to PLOF Plan: Anticipate Home with HH. 6-Click is 18 per the PT evaluation. Pt states that family lives close and that her niece plans to help her post DC. Pt states that she prefers to go home once medically ready and denies SNF needs. Pt states that she would like [facility] set up. Pt denies wanting to see a list of local in network HHC agencies and prefers to go through [facility] HH. Pt is also concerned about pricing for this after insurance. CM to follow and make referral once appropriate. Jeanette Ford RN, CM
--- NOTE | 2023-08-06 16:19 | CHAPLAIN ---
Type of Pastoral Visit _x__ Initial Visit ___ Follow-up Visit ___ On-call Visit ___ General Patient Visit ___ Spiritual Assessment ___ Family Conference ___ Bereavement ___ Rapid Response ___ Code Blue ___ Other (describe below) Pastoral Care Referral From _x__ Patient ___ Family ___ Nurse ___ Physician ___ Siding Installer ___ Chrome Cleaner ___ Other (describe below) Sacrament/Intervention _x__ Active listening ___ Anointing ___ Mandaen ___ Bereavement ___ Communion _x__ Lisa exploration ___ _x__ Life review _x__ Prayer ___ Reconciliation ___ Sacrament of Sick _x__ Supportive presence ___ Wedding ___ Other (describe below) Pastoral Comments 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
--- NOTE | 2023-08-06 16:23 | CASEMGMT ---
MARKIE MACK NOTE: Per Harjeet RN CM, pt would like referral to [facility]. Order for HHC placed: SN and PT/OT. Call placed to Jennifer @ [facility] and referral made. She will f/u with FREDERICK on , re: decision on acceptance. Abdon ROMO RN CM
--- NOTE | 2023-08-06 18:10 | EKG12_ITS ---
Test Reason : RHYTHM CHANGE Blood Pressure : / mmHG Vent. Rate : 101 BPM Atrial Rate : 000 BPM P-R Int : 000 ms QRS Dur : 090 ms QT Int : 370 ms P-R-T Axes : 000 017 068 degrees QTc Int : 479 ms Atrial fibrillation with rapid ventricular response Abnormal ECG When compared with ECG of 06-AUG-2023 20:27, MANUAL COMPARISON REQUIRED, DATA IS UNCONFIRMED Confirmed by HARSHAL DICKSON, SONIA ([id number]), online editor BRANDEE RIVERA ([id number]) on 08/08/2023 9:45:10 AM Referred By: Confirmed By:SONIA CAPUTO MD
--- NOTE | 2023-08-06 18:19 | CASEMGMT ---
Advance Directive Validation Received notification for need of advance directive validation. Noted that patient had provided advance directives in the past. Found a power of criminal attorney for healthcare and living will scanned into the patient's chart. Printed the forms and noted directives were completed in 2000. Met with patient in room, introducing self and social work role. Reviewed advanced directives this selling underwriter found on file. Patient reports belief there is a newer copy somewhere, and that the patient's sister Lissa has these. Patient gave permission for this selling underwriter to speak with Lissa. Patient reports the advance directives on file naming the patient's mother and then the patient's Sister Lissa would not be the patient's preference. Patient reports desire to have Lissa listed first. Patient reports would even be willing to redo the advance directives again. Called patient Sister Lissa who reports to have a copy at home naming Lissa first in the patient's brother second. Lissa reports that her brother a couple of years ago so Lissa is the only person viable on the directives. Lissa expressed belief that might be of benefit for patient to review the forms again. Plan: Will follow-up with patient during hospital stay regarding completion of new directives. -HORTENSIA Garcia, LINUX KERNEL ENGINEER *This note was generated with [employer] dictation software. It may contain incorrect words, spelling, and punctuation that were not noted in review of the chart prior to signing*
--- NOTE | 2023-08-06 18:23 | CASEMGMT ---
Social Work This typewriter assembler into room today to speak about advance directive validation. During this time patient discussed chronic health conditions, changing health, and coming to awareness that may need more help and support that patient has previously been willing to accept. 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 Patient reports to have good support from family and that there are nieces and nephews willing to help patient at home if needed. Patient reports her Sister Lissa is a good support as well as the patient's mother, but patient's mother is 90 years old. Supportive listening and reflection offered. Encourage patient to consider and evaluate what barriers are keeping the patient, accepting help that may assist the patient to have optimal health at home. Patient expressed awareness that her goal is a longtime caregiver could be one of the primary barriers. Emotional support offered. This typewriter assembler agreed to follow-up with patient regarding outcome advance directive investigation. Patient also interested in a [facility] medical alert system. Patient does currently have a medical alert but is concerned about the cost, as the patient's mother is paying for this. Patient reports she would like to be able to offer a less expensive option to her family. Called the patient's Sister Lissa at [phone]. Lsisa reported to have a different version of the advance directives than what is on file at the hospital, but voiced belief that what Lissa has a still a bit outdated. Lissa in support of advance directives being completed again. During this phone call, Lissa discussed much concern about the patient's change in health condition, and the family's concern for the patient living alone in a large home with a lot of belongings. Lissa reports has offered for the patient to come and stay with Lissa at time of discharge. Lissa reports has also confirmed 2-3 nieces and nephews who are willing to step in stay with patient at night, to ensure safety of the patient at home. Lissa reports has offered the patient believes choices, and has encouraged the patient to strongly consider accepting some additional help. Emotional support also offer additional this date. Educated Lisas that discharge planning is in progress setting [facility] for nursing, physical and Occupational Therapy. Educated that could potentially DIRT SUPERVISOR to this consult for support to the patient at home and coping with life transitions. Plan: Social work to follow-up with patient with medical alert information, discussion about adding social work to home health referral, and advance directives. -HORTENSIA Garcia, DIRT SUPERVISOR *This note was generated with [employer]ation software. It may contain incorrect words, spelling, and punctuation that were not noted in review of the chart prior to signing*
--- NOTE | 2023-08-06 20:27 | EKG12_ITS ---
Test Reason : NSR Blood Pressure : / mmHG Vent. Rate : 091 BPM Atrial Rate : 091 BPM P-R Int : 206 ms QRS Dur : 088 ms QT Int : 376 ms P-R-T Axes : 015 -05 051 degrees QTc Int : 462 ms Normal sinus rhythm Nonspecific T wave abnormality Abnormal ECG Confirmed by HARSHAL DICKSON, SONIA ([id number]), technical writer and editor BRANDEE RIVERA ([id number]) on 08/08/2023 10:00:12 AM Referred By: Confirmed By:SONIA CAPUTO MD
[2023-08-06] MEDS: Amitriptyline 100 MG Tablet 150 MG PO (20:53)
[2023-08-06] MEDS: dilTIAZem CD 240 MG Capsule PO (21:54)
[2023-08-07] VITALS (18 sets, daily range): BP systolic 94–155; BP diastolic 57–112; PULSE 60–106; RESP 13–35; TEMP 36.7–36.8; O2SAT 91–99
[2023-08-07] MEDS: Amiodarone 360 MG in Dextrose 5% Viaflo Bag 192.8 ML 16.7 MG CONT INF (02:56)
[2023-08-07] MEDS: Levothyroxine 175 MCG Tablet PO (05:09)
[2023-08-07] MEDS: Diltiazem 125 MG in Dextrose 5%-Water (100mL Bag) 100 ML CONT INF (05:09)
[2023-08-07 06:22] LABS: Absolute Lymphocyte Count 2.82 X10^3/uL (0.83-4.51); Absolute Neutrophil Count 3.1 X10^3/uL (2.0-7.7); Basophil# 0.07 X10^3/uL; Eosinophil# 0.22 X10^3/uL; Eosinophils% 3.2 % (0-5); Hematocrit 41.4 % (37-47); Hemoglobin 13.2 g/dL (12.0-15.0); Lymphocyte # 2.82 X10^3/ul (0.83-4.51); Lymphocyte % 40.9 % (19-41); Mean Corp Hgb Conc 31.9 g/dL (32-36); Mean Corpuscular Hgb 29.4 pg (27.0-32.0); Mean Corpuscular Volume 92.2 fL (81-99); Mean Platelet Vol. 9.9 fl (6.2-12.0); Monocyte# 0.64 X10^3/uL; Monocyte% 9.3 % (0-10); NRBC Flagged by Analyzer 0 % (0-5); Neutrophil # 3.14 X10^3/uL (2.7-7.7); Neutrophil % 45.5 % (47-70); Platelet Count 216 K/mm3 (150-450); RBC Distribution Width CV 13.5 % (11.6-14.6); RBC Distribution Width SD 46.4 fl (35.1-43.9); Red Blood Count 4.49 M/mm3 (4.2-5.4); White Blood Count 6.9 K/mm3 (4.4-11.0)
[2023-08-07 07:04] LABS: Anion Gap 8 (5-15); BUN 20 mg/dL (7-18); BUN/Creat Ratio 22.3 RATIO (10-20); Calcium,Total 8.9 mg/dL (8.5-10.1); Chloride 104 mmol/L (98-107); EST Glomerular Filtration Rate 66 mL/min (>60); Est Glom Filt Rate - Afr Amer 80 mL/min (>60); Estimated Creatinine Clearance 82.86 ml/min; Glucose 147 mg/dL (74-106); Sodium Level 137 mmol/L (136-145)
[2023-08-07] MEDS: DULoxetine Hcl 60 MG Capsule PO (08:04)
[2023-08-07] MEDS: Etodolac 200 MG Capsule PO (08:04)
[2023-08-07] MEDS: Multivitamins,Therapeutic Tablet 1 TABLET PO (08:04)
[2023-08-07] MEDS: Pantoprazole Sodium 40 MG Tablet PO (08:04)
[2023-08-07] MEDS: APIXABAN 5 MG TABLET PO ×2 (08:04→21:15)
[2023-08-07] MEDS: Metoprolol Tartrate 50 MG Tablet PO ×2 (08:09→21:14)
[2023-08-07] MEDS: Gabapentin 300 MG Capsule PO ×2 (08:10→21:14)
[2023-08-07] MEDS: Potassium Chloride Oral Tablet 20 MEQ 40 MEQ PO (08:10)
[2023-08-07] MEDS: Amiodarone 200 MG Tablet PO ×2 (08:10→21:13)
[2023-08-07] MEDS: Acetaminophen 325 MG Tablet 650 MG PO (08:10)
--- NOTE | 2023-08-07 08:58 | PN.CARD_ITS ---
Subjective Subjective Patient seen and evaluated. Doing much better this morning. Objective Data Vital Signs: Vital Signs Temp Pulse Resp BP Pulse Ox O2 Del Method O2 Flow Rate 97.2 F L 106 H 16 128/62 H 94 Nasal Cannula 2 08/06/23 23:00 08/07/23 08:09 08/07/23 07:00 08/07/23 08:09 08/07/23 07:00 08/07/23 07:00 08/07/23 07:00 Oxygen Flow Rate (L/min) 2 Oxygen Delivery Method Nasal Cannula Weight: 324 lb 1.272 oz Body Mass Index (BMI) 57.6 Intake & Output: Intake and Output for Last 24 Hours 08/05/23 08/06/23 08/07/23 23:59 23:59 23:59 Intake Total 1294.67 / 1294.67 209.25 / 209.25 Output Total 700 / 700 Balance 594.67 / 594.67 209.25 / 209.25 Lab / Micro Data 08/07/23 05:45 08/07/23 05:45 Labs: Laboratory Results - last 24 hr 08/07/23 05:45: WBC 6.9, RBC 4.49, Hgb 13.2, Hct 41.4, MCV 92.2, MCH 29.4, MCHC 31.9 L, RDW Std Deviation 46.4 H, RDW Coeff of Rekha 13.5, Plt Count 216, MPV 9.9, Immature Gran % (Auto) 0.100, Neut % (Auto) 45.5 L, Lymph % (Auto) 40.9, Harris % (Auto) 9.3, Eos % (Auto) 3.2, Baso % (Auto) 1.0, Absolute Neuts (auto) 3.1, Absolute Lymphs (auto) 2.82, Nucleated RBC % 0, Sodium 137, Potassium 3.0 L, Chloride 104, Carbon Dioxide 25.0, Anion Gap 8, BUN 20 H, Creatinine 0.90, Estim Creat Clear Calc 82.86, Est GFR (MDRD) Af Amer 80, Est GFR (MDRD) Non-Af 66, B UN/Creatinine Ratio 22.3 H, Glucose 147 H, Calcium 8.9 Rhythm Strip Rhythm Strip: Narrow complex tachycardia Rate: 135 Ectopy: None Cardiology Labs/Tests 08/07/23 05:45: WBC 6.9, RBC 4.49, Hgb 13.2, Hct 41.4, MCV 92.2, MCH 29.4, MCHC 31.9 L, Plt Count 216, MPV 9.9, Immature Gran % (Auto) 0.100, Neut % (Auto) 45.5 L, Lymph % (Auto) 40.9, Harris % (Auto) 9.3, Eos % (Auto) 3.2, Baso % (Auto) 1.0, Absolute Neuts (auto) 3.1, Nucleated RBC % 0, Sodium 137, Potassium 3.0 L, Chloride 104, Carbon Dioxide 25.0, Anion Gap 8, BUN 20 H, Creatinine 0.90, Est GFR (MDRD) Af Amer 80, Est GFR (MDRD) Non-Af 66, BUN/Creatinine Ratio 22.3 H, G lucose 147 H, Calcium 8.9 Rhythm: EKG: ECHO: Stress Test: Cardiac Cath: PCI: CT Surgery: Holter monitor: EPS: PPM: CXR: Chest CT Scan: Radiography Diagnostic Testing: Radiology Impression Echocardiogram 08/06/23 02:31 Interpretation Summary Normal LV size. Left ventricular systolic function is normal. No regional wall motion abnormalities noted. Contrast injection was performed. Ordering Physician: Yassine Thurman Referring Physician: David Chambers Performed By: Annie Cruz RDCS Physical Exam Const alert, oriented x3 and no apparent distress General Appearance: cooperative HEENT hearing grossly normal bilaterally Head and Scalp: atraumatic Eyes EOMs intact bilaterally Neck General: normal visual inspection Chest inspection of chest normal and palpation of chest normal Resp normal respiratory effort Auscultation: clear to auscultation bilaterally Cardio S1 normal heart sound and S2 normal heart sound Jugular Venous Distention: JVD Rhythm: abnormal rhythm irregularly irregular GI normal to inspection, nondistended, normoactive bowel sounds Extremity normal capillary refill and no pedal edema Peripheral Pulses: Yes pulses 2+ throughout and femoral pulses present Skin no rashes or lesions noted Neuro oriented x3 and CN's II-XII intact bilaterally Psych Appearance: grossly normal and appropriate Assessment & Plan Assessment/Plan (1) Atrial fibrillation with RVR: PLAN: Patient presents with atrial fibrillation with rapid ventricular response rate which appears to be difficult to control. Her [id number] score is 3. My recommendation is for us to continue with anticoagulation with Eliquis Will switch to oral beta-doris and amiodarone. Recommend holding the Plaquenil for now Echocardiogram demonstrated preserved left ventricular function. (2) Essential hypertension: PLAN: Her blood pressure appears to be under fair control. The plan to be to continue current medical therapy. We will evaluate her echocardiogram to assess her ventricular function.
--- NOTE | 2023-08-07 10:15 | PCM.PN.HOSP ---
Subjective Subjective Doing well, feels a bit better. Still in A-fib though rate is controlled Objective Data Objective Data Vital Signs: Vital Signs Temp Pulse Resp BP Pulse Ox O2 Del Method O2 Flow Rate 97.2 F L 70 20 H 128/62 H 96 Room Air 2 08/06/23 23:00 08/07/23 09:01 08/07/23 09:01 08/07/23 08:09 08/07/23 09:01 08/07/23 09:01 08/07/23 07:00 Oxygen Flow Rate (L/min) 2 Oxygen Delivery Method Room Air Weight: 324 lb 1.272 oz Body Mass Index (BMI) 57.6 Intake & Output: Intake and Output for Last 24 Hours 08/06/23 08/07/23 08/08/23 03:59 03:59 03:59 Intake Total 1494.67 / 1494.67 19.33 / 19.33 Output Total 700 / 700 Balance 794.67 / 794.67 19.33 / 19.33 Lab / Micro Data 08/07/23 05:45 08/07/23 05:45 Labs: Laboratory Results - last 24 hr 08/07/23 05:45: WBC 6.9, RBC 4.49, Hgb 13.2, Hct 41.4, MCV 92.2, MCH 29.4, MCHC 31.9 L, RDW Std Deviation 46.4 H, RDW Coeff of Rekha 13.5, Plt Count 216, MPV 9.9, Immature Gran % (Auto) 0.100, Neut % (Auto) 45.5 L, Lymph % (Auto) 40.9, [place] % (Auto) 9.3, Eos % (Auto) 3.2, Baso % (Auto) 1.0, Absolute Neuts (auto) 3.1, Absolute Lymphs (auto) 2.82, Nucleated RBC % 0, Sodium 137, Potassium 3.0 L, Chloride 104, Carbon Dioxide 25.0, Anion Gap 8, BUN 20 H, Creatinine 0.90, Estim Creat Clear Calc 82.86, Est GFR (MDRD) Af Amer 80, Est GFR (MDRD) Non-Af 66, BUN/Creatinine Ratio 22.3 H, Glucose 147 H, Calcium 8.9 Radiography Diagnostic Testing: Radiology Impression Echocardiogram 08/06/23 02:31 Interpretation Summary Normal LV size. Left ventricular systolic function is normal. No regional wall motion abnormalities noted. Contrast injection was performed. Ordering Physician: Yassine Thurman Referring Physician: David Chambers Performed By: Annie Cruz RDCS Rhythm Strip Rhythm Strip: Narrow complex tachycardia Rate: 135 Ectopy: None Physical Exam Narrative General: Alert, Oriented x3, Cooperative, No apparent distress HEENT: Atraumatic, PERRLA, EOMI, Normocephalic Oral: Moist Mucosa Neck: Supple, No JVD Lungs: Diminished, normal air movement, No rhonchi, No wheeze, No rales Cardiovascular: Regular rate, irregular rhythm, Normal S1, Normal S2, No murmurs Abdomen: Soft, Non Tender, Non-Distended, No Hepato-splenomegaly Extremities: No edema, Capillary Refill Less than 3 Seconds Skin: No rashes, No breakdown Musculoskeletal: No Tenderness to Palpation of Joints or Extremities Neurological: No focal neurological deficits, Motor Exam 5/5 strength throughout, Sensory exam intact to light touch and pain Psych/Mental Status: Normal Affect, Appropriate Assessment & Plan Assessment/Plan (1) Atrial fibrillation with RVR: PLAN: Plan 1. New onset A-fib with RVR with a history of SVT/essential HTN/HLD ? Will transition to oral medications today and if she stabilizes or converse normal sinus can consider discharge later today or tomorrow ? [id number] of 5 therefore we will continue with Eliquis ? Continue with amiodarone and metoprolol, her dose was decreased from 100 mg twice daily to 50 mg twice daily given the addition of amiodarone ? Will hold Plaquenil ? Echo with normal EF no wall motion abnormalities ? Appreciate cardiology's assistance ? Will hold her diuretics and monitor make adjustments as necessary 2. Rheumatoid arthritis ? She is on multiple medications as an outpatient ? Plaquenil can affect her function so we will hold for now ? Will have her follow-up with her environmental control administrator as an outpatient 3. GERD ? Stable ? Continue with PPI 4. Asthma ? Not in exacerbation ? Continue with her albuterol as needed 5. Hypothyroidism ? TSH was 3.31 on 07/31/2023 ? Continue with Synthroid 6. Anxiety/depression ? Stable ? Continue with her home medications 7. She did have a history of DVT and she completed Eliquis however given her new A-fib she will need to resume Eliquis 8. EMMETT ? Not compliant with therapy, will need to follow-up as an outpatient for another sleep study to reinstitute intervention. DVT: Eliquis Charges/Coding Visit Charges Inpatient E&M: 98673 Subs Hosp L2
[2023-08-07] MEDS: Loperamide 2 MG Capsule PO (12:22)
[2023-08-07] MEDS: traMADol 50 MG Tablet PO (12:22)
[2023-08-07] MEDS: Amitriptyline 100 MG Tablet 150 MG PO (21:13)
[2023-08-08 04:10] VITALS: BP 109/76; PULSE 82; RESP 18; TEMP 36.2; O2SAT 97
[2023-08-08] MEDS: traMADol 50 MG Tablet PO (05:51)
[2023-08-08] MEDS: Levothyroxine 175 MCG Tablet PO (05:51)
[2023-08-08 06:36] LABS: Absolute Lymphocyte Count 2.31 X10^3/uL (0.83-4.51); Basophil# 0.05 X10^3/uL; Eosinophil# 0.32 X10^3/uL; Eosinophils% 6.3 % (0-5); Hematocrit 40.7 % (37-47); Hemoglobin 13.2 g/dL (12.0-15.0); Lymphocyte # 2.31 X10^3/ul (0.83-4.51); Lymphocyte % 45.1 % (19-41); Mean Corp Hgb Conc 32.4 g/dL (32-36); Mean Corpuscular Hgb 30.3 pg (27.0-32.0); Mean Corpuscular Volume 93.6 fL (81-99); Monocyte% 7.8 % (0-10); NRBC Flagged by Analyzer 0 % (0-5); Neutrophil # 2.02 X10^3/uL (2.7-7.7); Neutrophil % 39.4 % (47-70); Platelet Count 230 K/mm3 (150-450); RBC Distribution Width CV 13.6 % (11.6-14.6); RBC Distribution Width SD 46.2 fl (35.1-43.9); Red Blood Count 4.35 M/mm3 (4.2-5.4); White Blood Count 5.1 K/mm3 (4.4-11.0)
[2023-08-08 06:52] LABS: Anion Gap 7 (5-15); BUN 18 mg/dL (7-18); BUN/Creat Ratio 20.5 RATIO (10-20); Calcium,Total 8.7 mg/dL (8.5-10.1); Chloride 106 mmol/L (98-107); Creatinine, Serum 0.88 mg/dL (0.55-1.02); EST Glomerular Filtration Rate 67 mL/min (>60); Est Glom Filt Rate - Afr Amer 82 mL/min (>60); Estimated Creatinine Clearance 84.74 ml/min; Glucose 129 mg/dL (74-106); Potassium 3.7 mmol/L (3.5-5.1); Sodium Level 139 mmol/L (136-145)
--- NOTE | 2023-08-08 07:52 | PCM.DC ---
Discharge Instructions Diet Discharge Diet: Low fat / Low cholesterol Activity Discharge Activity: Return to Normal Activity Dressing / Incision Call your doctor if you observe: Fever of 101 or Higher, Shortness of breath, Dizziness, Fainting spells, Swelling in the ankles, Chest pain and Increased palpitations (irregular heartbeat) Follow Up Care Test Results: Test results from this visit will be discussed in further detail at your follow-up appointment, if applicable. Discharge Plan Admission Admit Date/Time: 08/06/23 02:04 Attending Provider: Chace Arevalo Primary Care Provider: David Chambers Consulting Providers: Edward Monahan; Yassine Thurman Instructions Additional Instructions / Restrictions: Follow-up with your PCP in 3 to 5 days for outpatient monitoring, especially in regards to restarting your blood pressure medications are held as you were placed on amiodarone which can also control your blood pressure. Also prior to restarting Plaquenil please follow-up with your manager wealth management as this medication can interact with amiodarone. Discharge Orders/Prescriptions Prescriptions: New metoprolol tartrate 50 mg Tablet 50 mg PO BID 30 Days Qty: 60 0RF Eliquis 5 mg Tablet 5 mg PO BID 30 Days Qty: 60 0RF amiodarone 200 mg Tablet 200 mg PO DAILY 30 Days Qty: 30 0RF Rx Instructions: Take 1 tablet twice daily for 5 days then transition to 1 tablet daily Continued multivitamin Tablet 1 tab PO DAILY prednisone 10 mg tablet 10 mg PO DAILY PRN (Reason: RA flair) amitriptyline 100 mg tablet 150 mg PO QHS levothyroxine 175 MCG tablet 175 mcg PO DAILY Patient Comments: thyroid pill loperamide 2 MG capsule 2 mg PO DAILY PRN (Reason: Diarrhea) Patient Comments: diarrhea pantoprazole 40 MG tablet 40 mg PO DAILY Patient Comments: acid reflux fluticasone propionate 1 SPRAY spray,suspension 1 spray NASAL DAILY Patient Comments: allergies nabumetone 500 MG tablet 500 mg PO DAILY Patient Comments: pain albuterol sulfate 1 INHALER inhaler 2 puff INHALATION Q6H PRN PRN (Reason: Asthma) Patient Comments: cough, SOB duloxetine 60 MG capsule 60 mg PO DAILY Patient Comments: antidepressant adalimumab 40 mg/0.8 mL syringe kit 40 mg subcut FR gabapentin 300 mg capsule 300 mg PO BID amoxicillin-pot clavulanate 875-125 mg tablet 1 tab PO BID tramadol 50 mg tablet 50 mg PO TID PRN PRN (Reason: pain) Patient Comments: for rheumatoid solifenacin 10 mg tablet 10 mg PO DAILY montelukast 10 mg tablet 10 mg PO DAILY Held hydroxychloroquine 200 mg tablet 200 mg PO BID Hold Instructions: Resume on 08/16/23. Follow up with your manager wealth management prior to restarting triamterene-hydrochlorothiazid 37.5-25 mg capsule 1 cap PO DAILY Hold Instructions: Resume on 08/16/23. Discontinued triamterene-hydrochlorothiazid 1 EACH tablet 1 tab PO DAILY Patient Comments: BP metoprolol tartrate 100 mg tablet 100 mg PO BID Qty: 180 3RF Referrals / Follow Up: David Chambers MD [Primary Care Provider] - In 1 Week Daphne Brower PA [Med Staff - [facility]] - Within 1 Month Disposition Disposition (needs filled in before D/C Order can be placed): Home, Self Care
[2023-08-08 08:18] VITALS: BP 112/73; PULSE 79; RESP 18; TEMP 36.6; O2SAT 98
[2023-08-08 08:28] VITALS: PULSE 79; O2SAT 93
[2023-08-08] MEDS: Metoprolol Tartrate 50 MG Tablet PO (08:28)
[2023-08-08] MEDS: Amiodarone 200 MG Tablet PO (08:28)
[2023-08-08] MEDS: Gabapentin 300 MG Capsule PO (08:28)
[2023-08-08] MEDS: Pantoprazole Sodium 40 MG Tablet PO (08:28)
[2023-08-08] MEDS: Multivitamins,Therapeutic Tablet 1 TABLET PO (08:28)
[2023-08-08] MEDS: APIXABAN 5 MG TABLET PO (08:29)
[2023-08-08] MEDS: Etodolac 200 MG Capsule PO (08:29)
[2023-08-08] MEDS: Acetaminophen 325 MG Tablet 650 MG PO (08:29)
[2023-08-08] MEDS: DULoxetine Hcl 60 MG Capsule PO (08:29)
--- NOTE | 2023-08-08 10:01 | CASEMGMT ---
Patient has order for discharge. [facility] is able to accept patient with start of care for tomorrow. Patient is discharging on Eliquis, MARKIE MACK called [facility] and copay is $47. Patient has already used 30 day savings card in the past. MARKIE MACK in to update patient regarding HHC and Eliquis. Patient voiced understanding of Eliquis copay and that she has already used savings card. Patient denied further needs or concerns. Patient had no further questions.
--- NOTE | 2023-08-08 10:15 | PCM.DC.SUM ---
Providers Date of Admission: 08/06/23 Primary Care Physician: Dr. David Chambers MD Consultations 08/06/23 06:33 Consult: Cardiology Routine Consulting Provider: Edward Monahan Reason for Consult: new onset afib w/ rvr EMERGENT Consult: No MD Notified: Yes Date Notified: 08/06/23 Time Notified: 02:09 Method of Notification: Text Reason For Visit: NEW ONSET AFIB W/ RVR Diagnosis Discharge Diagnosis (1) Atrial fibrillation with RVR: Status: Acute Code(s): I48.91 - Unspecified atrial fibrillation Medications at Discharge Home Medications fluticasone propionate 50 mcg/actuation nasal spray,suspension 1 spray NASAL DAILY allergies 11/29/15 levothyroxine 175 mcg tablet 175 mcg PO DAILY thyroid 11/29/15 loperamide 2 mg capsule 2 mg PO DAILY PRN Diarrhea 11/29/15 nabumetone 500 mg tablet 500 mg PO DAILY pain 11/29/15 pantoprazole 40 mg tablet,delayed release 40 mg PO DAILY reflux 11/29/15 albuterol sulfate 90 mcg/actuation aerosol inhaler 2 puff inhalation Q6H PRN PRN Asthma 12/12/16 duloxetine 60 mg capsule,delayed release 60 mg PO DAILY mental health 12/12/16 adalimumab 40 mg/0.8 mL subcutaneous syringe kit 40 mg subcut FR infection 09/29/20 amitriptyline 100 mg tablet 150 mg PO QHS sleep 09/29/20 gabapentin 300 mg capsule 300 mg PO BID nerve pain 09/30/20 hydroxychloroquine 200 mg tablet 200 mg PO BID RA 09/30/20 multivitamin 1 tab PO DAILY vitamin 09/30/20 prednisone 10 mg tablet 10 mg PO DAILY PRN RA flair 09/30/20 amoxicillin 875 mg-potassium clavulanate 125 mg tablet 1 tab PO BID infection 08/06/23 montelukast 10 mg tablet 10 mg PO DAILY asthma 08/07/23 solifenacin 10 mg tablet 10 mg PO DAILY rheumatiod 08/07/23 tramadol 50 mg tablet 50 mg PO TID PRN PRN pain 08/07/23 triamterene 37.5 mg-hydrochlorothiazide 25 mg capsule 1 cap PO DAILY BP 08/07/23 amiodarone 200 mg tablet 200 mg PO DAILY 30 days #30 tabs 08/08/23 apixaban 5 mg tablet (Eliquis) 5 mg PO BID 30 days #60 tabs 08/08/23 metoprolol tartrate 50 mg tablet 50 mg PO BID 30 days #60 tabs 08/08/23 Hospital Course Operations None Procedures 2-D Echocardiogram Summary of Care Provided Minutes Spent on Discharge: 37 Hospital Course: Per HPI: JORDAN BLUM, is a 72 F who presented to [facility] ED on 08/06/2023 with new onset A-fib with RVR. Saw patient at bedside in the ED, nephew present. Patient was sitting up comfortably in bed, conversing normally, in no acute distress. Patient was recently seen in the ED on 07/29 for heart palpitations. She noted at that time that she had felt intermittent episodes of palpitations for about 1 week. Has a history of SVT and is on Lopressor 100 mg twice daily. In the ED she was noted to be in normal sinus rhythm and workup was otherwise unremarkable so she was discharged home. She completed a 24-hour Holter monitor on 07/30 and no A-fib/flutter was detected. She again had an episode of palpitations in the evening of 08/04 that lasted for several hours so she came to the ED for further evaluation. On arrival here, was noted that her heart rate was in the 140s. EKG showed a narrow complex tachycardia but was difficult to ascertain the underlying rhythm. Was given adenosine 6 mg and heart rate went down to the 120s but underlying rhythm still was not obvious, so she was given this in 12 mg and it was clear that the underlying rhythm was A-fib versus a flutter. The adenosine did not break her rhythm and continue to sustain in the 130s to 140s. She was given a bolus of IV Cardizem and started on a Cardizem drip at that time. On my encounter, patient's heart rate was consistently in the 110s and appeared to be A-fib. She did report a mild fluttering feeling in her chest but this was improved from previous. She denied any shortness of breath at rest or fever/chills. Patient has a BMI of 57 and does have a history of EMMETT. States she has not used her CPAP for at least a few years as it was uncomfortable for her, but she would be willing to start using it again. She does report mild shortness of breath with exertion over the past week or so. Patient lives at home alone. She typically uses a walker for ambulation at home. She does have family that lives nearby to help when needed. She has felt slightly weaker than her baseline over the past week or so. She otherwise has been eating and drinking normally. She notably has a history of DVT 5 to 6 years ago. States she completed a 3-month course of Eliquis at that time and tolerated it without issue. Vitals in ED notable for A-fib with RVR, was otherwise normotensive and satting in mid 90s on room air at rest. CBC and BMP unremarkable. Troponin negative. BNP notably was 40 on 07/29, repeat pending. Chest x-ray was nonacute. Notably had CTA chest done on 07/30 that was negative for PE. Hospital Course: 1. New onset A-fib with RVR with a history of SVT/essential HTN/HLD?72-year-old female presented to the hospital with A-fib with RVR which is new. She was started on amiodarone IV and transition to p.o. She did transition to normal sinus rhythm today so we will continue with the amiodarone at 100 mg p.o. twice daily for 5 more days then transition to daily, we also reduced her metoprolol dose from 100 mg to 50 mg p.o. twice daily which she will be continued on as well. Given her [id number] score of 5 and her new onset A-fib she was restarted on Eliquis, she had previously been on Eliquis for DVT but had completed treatment. Will continue to hold her triamterene?hydrochlorothiazide until she is able to follow-up with her PCP as an outpatient monitor her blood pressures as she is on amiodarone. She did have an echo with a normal EF and no wall motion abnormalities on this admission. Will also hold her Plaquenil until she is able to follow-up with rheumatology given the potential interaction between hydroxychloroquine and amiodarone. I discussed with her the plan for discharge today she expressed understanding of the risk benefits of going home and would like to go home today. 2. Rheumatoid arthritis, GERD, asthma, hypothyroidism, anxiety, depression, EMMETT are all chronic medical conditions which complicate her care. Her home medications were continued where appropriate Physical Exam Narrative General: Alert, Oriented x3, Cooperative, No apparent distress HEENT: Atraumatic, PERRLA, EOMI, Normocephalic Oral: Moist Mucosa Neck: Supple, No JVD Lungs: Diminished, normal air movement, No rhonchi, No wheeze, No rales Cardiovascular: Regular rate, regular rhythm, Normal S1, Normal S2, No murmurs Abdomen: Soft, Non Tender, Non-Distended, No Hepato-splenomegaly Extremities: No edema, Capillary Refill Less than 3 Seconds Skin: No rashes, No breakdown Musculoskeletal: No Tenderness to Palpation of Joints or Extremities Neurological: No focal neurological deficits, Motor Exam 5/5 strength throughout, Sensory exam intact to light touch and pain Psych/Mental Status: Normal Affect, Appropriate Weight / BMI Weight Weight: 324 lb 1.272 oz Body Mass Index (BMI) 57.6 ABG / Lab / Microbiology Data 08/08/23 05:46 08/08/23 05:46 Laboratory: Laboratory Results - last 24 hr 08/08/23 05:46: WBC 5.1, RBC 4.35, Hgb 13.2, Hct 40.7, MCV 93.6, MCH 30.3, MCHC 32.4, RDW Std Deviation 46.2 H, RDW Coeff of Rekha 13.6, Plt Count 230, MPV 10.0, Immature Gran % (Auto) 0.400, Neut % (Auto) 39.4 L, Lymph % (Auto) 45.1 H, Russell % (Auto) 7.8, Eos % (Auto) 6.3 H, Baso % (Auto) 1.0, Absolute Neuts (auto) 2.0, Absolute Lymphs (auto) 2.31, Nucleated RBC % 0, Sodium 139, Potassium 3.7, Chloride 106, Carbon Dioxide 26.0, Anion Gap 7, BUN 18, Creatinine 0.88, Estim Creat Clear Calc 84.74, Est GFR (MDRD) Af Amer 82, Est GFR (MDRD) Non-Af 67, BUN/Creatinine Ratio 20.5 H, Glucose 129 H, Calcium 8.7 D/C Instructions Discharge Diet: Low fat / Low cholesterol Call your doctor if you observe: Fever of 101 or Higher, Shortness of breath, Dizziness, Fainting spells, Swelling in the ankles, Chest pain and Increased palpitations (irregular heartbeat) Meaningful Use Info Meaningful Use Meaningful Use Diagnoses (Choose all that apply): None applicable Ischemic Stroke Statin Dosing Therapy Reference: STATIN DOSE THERAPY REFERENCE: * Patients > 75 years receive moderate or high dose statin therapy. * Patients 75 years or YOUNGER should receive HIGH intensity statin dose unless contraindicated. You will be required to document reason for non-treatment if statin daily dose does not meet guidelines. HIGH DOSE STATIN THERAPY DAILY Atorvastatin > than or = to 40 mg Rosuvastatin > than or = to 20 mg Amlodipine + Atorvastatin > than or = to 2.5/40 mg Ezetimibe + Simvastatin 10/80 mg Simvastatin 80mg Discharge Plan Admission Admit Date/Time: 08/06/23 02:04 Attending Provider: Chace Arevalo Primary Care Provider: David Chambers Consulting Providers: Edward Monahan; Yassine Thurman Instructions Additional Instructions / Restrictions: Follow-up with your PCP in 3 to 5 days for outpatient monitoring, especially in regards to restarting your blood pressure medications are held as you were placed on amiodarone which can also control your blood pressure. Also prior to restarting Plaquenil please follow-up with your direct selling counselor as this medication can interact with amiodarone. Discharge Orders/Prescriptions Prescriptions: New metoprolol tartrate 50 mg Tablet 50 mg PO BID 30 Days Qty: 60 0RF Eliquis 5 mg Tablet 5 mg PO BID 30 Days Qty: 60 0RF amiodarone 200 mg Tablet 200 mg PO DAILY 30 Days Qty: 30 0RF Rx Instructions: Take 1 tablet twice daily for 5 days then transition to 1 tablet daily Continued multivitamin Tablet 1 tab PO DAILY prednisone 10 mg tablet 10 mg PO DAILY PRN (Reason: RA flair) amitriptyline 100 mg tablet 150 mg PO QHS levothyroxine 175 MCG tablet 175 mcg PO DAILY Patient Comments: thyroid pill loperamide 2 MG capsule 2 mg PO DAILY PRN (Reason: Diarrhea) Patient Comments: diarrhea pantoprazole 40 MG tablet 40 mg PO DAILY Patient Comments: acid reflux fluticasone propionate 1 SPRAY spray,suspension 1 spray NASAL DAILY Patient Comments: allergies nabumetone 500 MG tablet 500 mg PO DAILY Patient Comments: pain albuterol sulfate 1 INHALER inhaler 2 puff INHALATION Q6H PRN PRN (Reason: Asthma) Patient Comments: cough, SOB duloxetine 60 MG capsule 60 mg PO DAILY Patient Comments: antidepressant adalimumab 40 mg/0.8 mL syringe kit 40 mg subcut FR gabapentin 300 mg capsule 300 mg PO BID amoxicillin-pot clavulanate 875-125 mg tablet 1 tab PO BID tramadol 50 mg tablet 50 mg PO TID PRN PRN (Reason: pain) Patient Comments: for rheumatoid solifenacin 10 mg tablet 10 mg PO DAILY montelukast 10 mg tablet 10 mg PO DAILY Held hydroxychloroquine 200 mg tablet 200 mg PO BID Hold Instructions: Resume on 08/16/23. Follow up with your direct selling counselor prior to restarting triamterene-hydrochlorothiazid 37.5-25 mg capsule 1 cap PO DAILY Hold Instructions: Resume on 08/16/23. Discontinued triamterene-hydrochlorothiazid 1 EACH tablet 1 tab PO DAILY Patient Comments: BP metoprolol tartrate 100 mg tablet 100 mg PO BID Qty: 180 3RF Referrals / Follow Up: David Chambers MD [Primary Care Provider] - In 1 Week Daphne Brower PA [Med Staff - [facility]] - Within 1 Month Disposition Disposition (needs filled in before D/C Order can be placed): Home, Self Care Charges/Coding Visit Charges Inpatient E&M: 34688 Disch Hosp >30min
--- NOTE | 2023-08-08 10:53 | PHA.DC.MC.R ---
Pharmacy [facility] has performed discharge medication reconciliation and counseling for this patient. 1. AMIODARONE 200MG PO BID X 5 DAYS, THEN DAILY THEREAFTER 2. APIXABAN 5MG PO BID 3. METOPROLOL DECREASED TO 50MG 4. HOLD HYDROXYCHLOROQUINE AND TRIAMTERENE/HCTZ The patient's discharge medication list was reviewed for discrepancies and discrepancies were resolved. The patient was counseled on the following discharge medications and changes in medications for homegoing were reviewed. The Reason for Use, instructions for use, and potential side effects were reviewed for all new medications. The patient's questions regarding all of their medications were answered. The patient was able to verbally demonstrate an understanding of their discharge medications. Medications at Discharge Home Medications fluticasone propionate 50 mcg/actuation nasal spray,suspension 1 spray NASAL DAILY allergies 11/29/15 levothyroxine 175 mcg tablet 175 mcg PO DAILY thyroid 11/29/15 loperamide 2 mg capsule 2 mg PO DAILY PRN Diarrhea 11/29/15 nabumetone 500 mg tablet 500 mg PO DAILY pain 11/29/15 pantoprazole 40 mg tablet,delayed release 40 mg PO DAILY reflux 11/29/15 albuterol sulfate 90 mcg/actuation aerosol inhaler 2 puff inhalation Q6H PRN PRN Asthma 12/12/16 duloxetine 60 mg capsule,delayed release 60 mg PO DAILY mental health 12/12/16 adalimumab 40 mg/0.8 mL subcutaneous syringe kit 40 mg subcut FR infection 09/29/20 amitriptyline 100 mg tablet 150 mg PO QHS sleep 09/29/20 gabapentin 300 mg capsule 300 mg PO BID nerve pain 09/30/20 hydroxychloroquine 200 mg tablet 200 mg PO BID RA 09/30/20 multivitamin 1 tab PO DAILY vitamin 09/30/20 prednisone 10 mg tablet 10 mg PO DAILY PRN RA flair 09/30/20 amoxicillin 875 mg-potassium clavulanate 125 mg tablet 1 tab PO BID infection 08/06/23 montelukast 10 mg tablet 10 mg PO DAILY asthma 08/07/23 solifenacin 10 mg tablet 10 mg PO DAILY rheumatiod 08/07/23 tramadol 50 mg tablet 50 mg PO TID PRN PRN pain 08/07/23 triamterene 37.5 mg-hydrochlorothiazide 25 mg capsule 1 cap PO DAILY BP 08/07/23 amiodarone 200 mg tablet 200 mg PO DAILY 30 days #30 tabs 08/08/23 apixaban 5 mg tablet (Eliquis) 5 mg PO BID 30 days #60 tabs 08/08/23 metoprolol tartrate 50 mg tablet 50 mg PO BID 30 days #60 tabs 08/08/23
== END 2023-08-08 11:25 | disposition home or self-care (01) | DRG 309 ==
LOC: ED 01:56 → PCU 02:16
PROVIDERS: Admitting Provider Hospitalist; Emergency Provider Emergency Medicine; PCP Family Medicine; Visit Provider Family Medicine
DX: I48.91 Unspecified atrial fibrillation (principal); Z68.43 Body mass index [BMI] 50.0-59.9, adult; E66.01 Morbid (severe) obesity due to excess calories; M06.9 Rheumatoid arthritis, unspecified; I10 Essential (primary) hypertension; J45.909 Unspecified asthma, uncomplicated; E03.9 Hypothyroidism, unspecified; F32.A Depression, unspecified; K21.9 Gastro-esophageal reflux disease without esophagitis; G47.33 Obstructive sleep apnea (adult) (pediatric); F41.9 Anxiety disorder, unspecified; G62.9 Polyneuropathy, unspecified; R53.81 Other malaise; Z79.51 Long term (current) use of inhaled steroids; Z79.899 Other long term (current) drug therapy; Z86.718 Personal history of other venous thrombosis and embolism
CPT/HCPCS: 36415; 71046; 80048; 83735; 83880; 84484; 85025; 93005; 93306; 94668; 97162; 97166; 97530; 97535; 99285; Q9957; A4216; C8929; J0153

== ENCOUNTER → 2023-08-15 | Outpatient (CLI) | payer MEDICARE, SELFPAY ==
[2023-08-15 15:48] LABS: Absolute Lymphocyte Count 3.03 X10^3/uL (0.83-4.51); Absolute Neutrophil Count 2.7 X10^3/uL (2.0-7.7); Basophil# 0.07 X10^3/uL; Eosinophil# 0.27 X10^3/uL; Hematocrit 40.2 % (37-47); Hemoglobin 12.6 g/dL (12.0-15.0); Lymphocyte # 3.03 X10^3/ul (0.83-4.51); Lymphocyte % 45.4 % (19-41); Mean Corp Hgb Conc 31.3 g/dL (32-36); Mean Corpuscular Hgb 29.3 pg (27.0-32.0); Mean Corpuscular Volume 93.5 fL (81-99); Mean Platelet Vol. 9.6 fl (6.2-12.0); Monocyte# 0.54 X10^3/uL; Monocyte% 8.1 % (0-10); NRBC Flagged by Analyzer 0 % (0-5); Neutrophil # 2.74 X10^3/uL (2.7-7.7); Neutrophil % 41.2 % (47-70); Platelet Count 292 K/mm3 (150-450); RBC Distribution Width CV 13.5 % (11.6-14.6); White Blood Count 6.7 K/mm3 (4.4-11.0)
[2023-08-15 16:14] LABS: Anion Gap 2 (5-15); BNP,B-Type NATRIURETIC PEPTIDE 25.2 pg/mL (0-100); BUN 25 mg/dL (7-18); BUN/Creat Ratio 25.6 RATIO (10-20); Calcium,Total 8.8 mg/dL (8.5-10.1); Chloride 108 mmol/L (98-107); Creatinine, Serum 0.98 mg/dL (0.55-1.02); EST Glomerular Filtration Rate 60 mL/min (>60); Est Glom Filt Rate - Afr Amer 72 mL/min (>60); Glucose 86 mg/dL (74-106); Potassium 3.8 mmol/L (3.5-5.1); Sodium Level 139 mmol/L (136-145)
== END | disposition home or self-care (01) ==
LOC: LAB 14:44
PROVIDERS: PCP Family Medicine; Visit Provider Nurse Practitioner Gerontology
DX: R06.09 Other forms of dyspnea (principal)
CPT/HCPCS: 36415; 80048; 83880; 85025

== ENCOUNTER → 2023-09-03 | Outpatient (CLI) | payer MEDICARE, SELFPAY | END | disposition home or self-care (01) | LOC: PSN 10:32 | PROVIDERS: PCP Family Medicine; Referring Provider Nurse Practitioner Gerontology; Visit Provider Nurse Practitioner Gerontology | DX: Z79.899 Other long term (current) drug therapy (principal) | CPT/HCPCS: 94060; 94726; 94729 ==

== ENCOUNTER → 2023-09-11 | Outpatient (CLI) | payer MEDICARE, SELFPAY ==
--- NOTE | 2023-09-11 16:09 | STRESSREP ---
Stress Test Report Pharmacologic myocardial perfusion stress test. 72-year-old lady with a history of atrial fibrillation Resting EKG demonstrates sinus rhythm with a rate of 62 bpm. Resting blood pressure is 131/80 mmHg. 0.4 mg of regadenoson was infused per usual protocol followed by rapid intravenous saline flush injection. Continuous EKG monitoring was performed. The maximum heart rate was 76 bpm which was 50% of max impacted heart rate the maximum workload was 1 metabolic equivalent. At rest there were no ST or T wave changes noted to suggest ischemia and at peak infusion nonspecific ST changes were noted which did not meet the criteria for ischemia. No clinical angina is noted. The final blood pressure was 131/80 mmHg. Myocardial perfusion protocol. 14.8 mCi of technetium 99m sestamibi was injected at rest. 0.4 mg of regadenoson was infused per usual protocol. At peak infusion 44.8 mCi of technetium 99m sestamibi was injected stress images were obtained stress and rest images were reconstructed and compared in the short axis vertical long and horizontal long axis. Gated images were also obtained. Perfusion SPECT analysis: Review of the stress images demonstrate normal uptake of tracer noted in all areas of the myocardium. The resting images similar demonstrated normal uptake of tracer noted in all areas of the myocardium. No areas of reversibility are noted to suggest ischemia and no previous infarct is noted. Gated SPECT analysis: The gated ejection fraction is 76%. Conclusion: Normal pharmacologic myocardial perfusion stress test. Preserved ejection fraction.
== END | disposition home or self-care (01) ==
LOC: CVS 06:29
PROVIDERS: PCP Family Medicine; Referring Provider Nurse Practitioner Gerontology; Visit Provider Nurse Practitioner Gerontology
DX: I48.91 Unspecified atrial fibrillation (principal); R07.89 Other chest pain; R06.09 Other forms of dyspnea
CPT/HCPCS: 78452; 93017; A9500; A4216; J2785

== ENCOUNTER 2023-10-18 15:17 | Outpatient (RCR) | payer MEDICARE, SELFPAY ==
[2023-09-27 15:03] LABS: Prothrombin Time (Protime)PT. 13.2 SECONDS (11.7-14.9)
[2023-10-04 12:17] LABS: International Normalized Ratio 1.3; Prothrombin Time (Protime)PT. 16.4 SECONDS (11.7-14.9)
[2023-10-11 12:05] LABS: International Normalized Ratio 1.6; Prothrombin Time (Protime)PT. 18.7 SECONDS (11.7-14.9)
[2023-10-18 17:51] LABS: International Normalized Ratio 1.9; Prothrombin Time (Protime)PT. 21.4 SECONDS (11.7-14.9)
== END 2023-10-18 18:00 | disposition home or self-care (01) ==
LOC: MTLAB 15:17
PROVIDERS: PCP Family Medicine; Referring Provider Nurse Practitioner Gerontology; Visit Provider Nurse Practitioner Gerontology
DX: I48.91 Unspecified atrial fibrillation (principal); Z79.01 Long term (current) use of anticoagulants
CPT/HCPCS: 36415; 85610

== ENCOUNTER 2023-11-01 10:07 | Outpatient (RCR) | payer MEDICARE, SELFPAY ==
[2023-11-01 12:29] LABS: International Normalized Ratio 2.1; Prothrombin Time (Protime)PT. 23.8 SECONDS (11.7-14.9)
== END 2023-11-01 18:00 | disposition home or self-care (01) ==
LOC: MTLAB 10:07
PROVIDERS: PCP Family Medicine; Referring Provider Nurse Practitioner Gerontology; Visit Provider Nurse Practitioner Gerontology
DX: I48.91 Unspecified atrial fibrillation (principal); Z79.01 Long term (current) use of anticoagulants
CPT/HCPCS: 36415; 85610

== ENCOUNTER → 2023-11-02 | Outpatient (CLI) | payer MEDICARE, SELFPAY ==
[2023-11-02 12:39] LABS: Absolute Lymphocyte Count 2.36 X10^3/uL (0.83-4.51); Absolute Neutrophil Count 3.2 X10^3/uL (2.0-7.7); Basophil# 0.07 X10^3/uL; Basophil% 1.1 % (0-1); Eosinophil# 0.15 X10^3/uL; Eosinophils% 2.4 % (0-5); Hematocrit 43.1 % (37-47); Hemoglobin 13.3 g/dL (12.0-15.0); Lymphocyte # 2.36 X10^3/ul (0.83-4.51); Lymphocyte % 37.3 % (19-41); Mean Corp Hgb Conc 30.9 g/dL (32-36); Mean Corpuscular Hgb 28.7 pg (27.0-32.0); Mean Corpuscular Volume 92.9 fL (81-99); Mean Platelet Vol. 9.9 fl (6.2-12.0); Monocyte# 0.54 X10^3/uL; Monocyte% 8.5 % (0-10); NRBC Flagged by Analyzer 0 % (0-5); Neutrophil # 3.19 X10^3/uL (2.7-7.7); Neutrophil % 50.4 % (47-70); Platelet Count 264 K/mm3 (150-450); RBC Distribution Width CV 15.4 % (11.6-14.6); RBC Distribution Width SD 52.3 fl (35.1-43.9); Red Blood Count 4.64 M/mm3 (4.2-5.4); White Blood Count 6.3 K/mm3 (4.4-11.0)
[2023-11-02 13:08] LABS: ALB/GLOB Ratio 0.9 RATIO (0.9-2.4); AST(SGOT) 20 U/L (15-37); Alanine Aminotransfer ALT/SGPT 32 U/L (13-56); Albumin, Serum 3.3 g/dL (3.2-5.0); Alkaline Phosphatase 67 U/L (45-117); Anion Gap 5 (5-15); BUN 23 mg/dL (7-18); BUN/Creat Ratio 21.3 RATIO (10-20); Calcium,Total 9.1 mg/dL (8.5-10.1); Chloride 108 mmol/L (98-107); Creatinine, Serum 1.08 mg/dL (0.55-1.02); EST Glomerular Filtration Rate 53 mL/min (>60); Est Glom Filt Rate - Afr Amer 64 mL/min (>60); Globulin 3.5 g/dL (2.2-4.2); Glucose 100 mg/dL (74-106); Potassium 4.2 mmol/L (3.5-5.1); Protein, Total 6.8 g/dL (6.4-8.2); Sodium Level 140 mmol/L (136-145)
== END | disposition home or self-care (01) ==
LOC: MTLAB 11:00
PROVIDERS: PCP Family Medicine; Referring Provider Internal Medicine Rheumatology; Visit Provider Internal Medicine Rheumatology
DX: M06.09 Rheumatoid arthritis without rheumatoid factor, multiple sites (principal); M79.7 Fibromyalgia; M17.0 Bilateral primary osteoarthritis of knee; Z79.899 Other long term (current) drug therapy
CPT/HCPCS: 36415; 80053; 85025

== ENCOUNTER 2023-11-29 10:02 | Outpatient (RCR) | payer MEDICARE, SELFPAY ==
[2023-11-22 15:28] LABS: International Normalized Ratio 1.7; Prothrombin Time (Protime)PT. 19.9 SECONDS (11.7-14.9)
[2023-11-29 12:32] LABS: International Normalized Ratio 2.2; Prothrombin Time (Protime)PT. 24.3 SECONDS (11.7-14.9)
== END 2023-11-29 18:00 | disposition home or self-care (01) ==
LOC: MTLAB 10:02
PROVIDERS: PCP Family Medicine; Referring Provider Nurse Practitioner Gerontology; Visit Provider Nurse Practitioner Gerontology
DX: I48.91 Unspecified atrial fibrillation (principal); Z79.01 Long term (current) use of anticoagulants
CPT/HCPCS: 36415; 85610

== ENCOUNTER 2023-12-09 16:41 | Emergency (ER) | payer MEDICARE, SELFPAY ==
[2023-12-09 16:42] VITALS: BP 99/77; PULSE 91; RESP 18; TEMP 36.6; O2SAT 100; BMI 54.3
--- NOTE | 2023-12-09 17:31 | RAD_ITS ---
EXAM: XR RIGHT KNEE COMPLETE, 4 OR MORE VIEWS CLINICAL INDICATION: Trauma TECHNIQUE: Four or more views of the right knee. COMPARISON: No relevant prior studies available. FINDINGS: BONES/JOINTS: Severe degenerative findings in the medial and lateral compartment of the knee. Severe degenerative findings in the patellofemoral compartment. No acute fracture. No subluxation. Normal alignment. No sclerotic or destructive changes observed. SOFT TISSUES: Unremarkable. No soft tissue swelling or gas. No radiopaque foreign body. RAD/Knee 4 or More Views IMPRESSION: Severe degenerative findings of the knee. Electronically Signed: Giorgi Null MD at 18:53 EDT ,
--- NOTE | 2023-12-09 17:31 | CT_ITS ---
STUDY: CT BRAIN WITHOUT CONTRAST REASON FOR EXAM: Female, 73 years old. Trauma Individualized dose optimization techniques were used for this CT. TECHNIQUE: Transaxial CT imaging of the brain was performed without administration of intravenous contrast material. COMPARISON: None FINDINGS: There are calcifications around the carotid artery. These are noted in the cavernous carotid arteries. Normal calvarium. Normal soft tissues. There is mild cerebral atrophy with widening of the extra-axial spaces and ventricular dilatation. There are areas of decreased attenuation within the white matter tracts of the supratentorial brain, consistent with microvascular disease changes. Normal basal ganglia and thalami. Normal brainstem. There is mild cerebellar atrophy. There is no intracranial hemorrhage. There are no findings of an acute ischemic infarction. Normal visualized paranasal sinuses. ASPECTS Score for Acute Strokes: 11/28 CT/Brain/Head without Contrast IMPRESSION: There are no acute findings. Chronic involutional changes of the brain. Electronically Signed: Giorgi Null MD at 18:17 EDT ,
--- NOTE | 2023-12-09 17:31 | CT_ITS ---
EXAM: CT SPINE - CERVICAL WITHOUT IV REASON FOR EXAM: Female, 73 years old. NECK PAIN Trauma HISTORY: NECK PAIN Trauma Individualized dose optimization techniques were used for this CT. TECHNIQUE: Multiplanar images were obtained of the cervical spine. IV contrast was not utilized. COMPARISON: None. FINDINGS: The vertebral bodies do maintain their height. The odontoid process is intact. No pre-vertebral soft tissue swelling is seen. The intravertebral disc height is lost. There are scattered lymph nodes in the neck. There are degenerative changes of the osseous structures. There is bilateral facet arthropathy. There are scattered levels of foraminal stenosis. There are vascular calcifications. CT/Spine Cervical without Contras IMPRESSION: Degenerative changes of the cervical spine. There are no acute findings. Electronically Signed: Giorgi Null MD at 18:18 EDT ,
--- NOTE | 2023-12-09 17:32 | ED.VIS.FALL ---
HPI HPI - Fall History of Present Illness Chief Complaint: Fall Narrative Narrative: 73-year-old female on Coumadin for atrial fibrillation presents status post fall in her bathroom earlier. She states that she had just blood on her clothing and stood up from the commode, when she saw something that she wanted to citrus picker off the floor. She bent forward and her knees twisted, and she fell onto her right side. While she states that when she fell on the floor, she may have struck her head, she did not strike it hard. She denies any neck pain. No loss of consciousness, no nausea or vomiting. While she had a button to press to call for help, she did not have it with her. She was able to scoot along the floor and use her phone to call her relative. She presents with pain in her right knee and in her right hip, as well as closed head injury and striking her head. She denies headache, no other injury. She states she has problems with her knees regardless because she has a history of rheumatoid arthritis. [facility] Medical History Contact with and (suspected) exposure to other viral communicable diseases History of DVT (deep vein thrombosis) SVT (supraventricular tachycardia) Essential hypertension Wound infection after surgery Depression Hypothyroidism Vitamin B12 deficiency Vitamin D deficiency Insomnia Allergic rhinitis GERD (gastroesophageal reflux disease) Morbid obesity Right rotator cuff tear Rheumatoid arthritis Home Medications ?Medication ?Instructions ?Recorded ?Last Taken ?Type fluticasone propionate 50 1 spray NASAL DAILY allergies 11/29/15 Unknown History mcg/actuation nasal spray,suspension levothyroxine 175 mcg tablet 175 mcg PO DAILY thyroid 11/29/15 08/01/17 06:00 History loperamide 2 mg capsule 2 mg PO DAILY PRN Diarrhea 11/29/15 01/26/17 05:00 History 2 MG pantoprazole 40 mg tablet,delayed 40 mg PO DAILY reflux 11/29/15 08/01/17 06:00 History release albuterol sulfate 90 mcg/actuation 2 puff inhalation Q6H PRN PRN 12/12/16 Unknown History aerosol inhaler Asthma duloxetine 60 mg capsule,delayed 60 mg PO DAILY mental health 12/12/16 Unknown History release adalimumab 40 mg/0.8 mL 40 mg subcut FR infection 09/29/20 Unknown History subcutaneous syringe kit amitriptyline 100 mg tablet 150 mg PO QHS sleep 09/29/20 Unknown History gabapentin 300 mg capsule 300 mg PO BID nerve pain 09/30/20 Unknown History multivitamin 1 tab PO DAILY vitamin 09/30/20 Unknown History prednisone 10 mg tablet 10 mg PO DAILY PRN RA flair 09/30/20 Unknown History montelukast 10 mg tablet 10 mg PO DAILY asthma 08/07/23 Unknown History solifenacin 10 mg tablet 10 mg PO DAILY rheumatiod 08/07/23 Unknown History tramadol 50 mg tablet 50 mg PO TID PRN PRN pain 08/07/23 Unknown History triamterene 37.5 1 cap PO DAILY BP 08/07/23 Unknown History mg-hydrochlorothiazide 25 mg capsule amiodarone 200 mg tablet 200 mg PO DAILY #90 tabs 08/22/23 Unknown Rx warfarin 2 mg tablet 2 mg PO DAILY #30 tabs 09/17/23 Unknown Rx warfarin 4 mg tablet 4 mg PO DAILY #120 tabs 10/04/23 Unknown Rx metoprolol tartrate 50 mg tablet 50 mg PO BID #180 tabs 10/31/23 Unknown Rx Allergy/AdvReac Type Severity Reaction Status Date / Time adhesive tape Allergy Rash Verified 12/09/23 16:45 codeine Allergy Hives Verified 12/09/23 16:45 Opioids - Morphine Analogues Allergy Hives Verified 12/09/23 16:45 fosinopril (From Monopril) AdvReac severe Verified 12/09/23 16:45 cough Family History Brother Colon cancer Lung cancer Mother Hypertension Thyroid disorder Father Ulcer Lung cancer Surgical History History of bilateral cataract extraction History of cholecystectomy Hx of gastric bypass Encounter for incision and drainage procedure Status post reverse total replacement of right shoulder S/P rotator cuff repair H/O: hysterectomy Social History Smoking Status: Never smoker second hand exposure: No alcohol intake: never substance use type: does not use caffeine: Yes seatbelt use: always ROS ROS ED ROS Narrative Constitutional: No fever, no chills. HEENT: No sore throat. No neck pain. No loss of vision. No rhinorrhea. Struck right side of head and bathroom. Cardiovascular: No chest pain. No palpitations. No pedal edema. Respiratory: No cough, no shortness of breath. Abdominal: No abdominal pain. No nausea. No vomiting. Genitourinary: No dysuria. No hematuria. Musculoskeletal: No myalgias. Right hip and right knee pain worse with movement. Right knee feels stiff. Neurologic: No headaches. No dizziness. No lightheadedness. No loss of consciousness. Skin: No rash. No change in color. Psychiatric: No depression. No anxiety. EXAM Physical Exam Narrative Exam Narrative: GCS 15. ABCs intact. PERRL, EOMI with noted strabismus. Mild tenderness to palpation right parietal scalp, no crepitance, no noted laceration. Cardiovascular examination regular rate and rhythm. Lungs clear to auscultation bilaterally. Abdomen soft nontender with normal active bowel sounds. Diffuse tenderness to palpation right hip, no pain with logrolling of femur. Pelvis stable. Mild tenderness palpation right tibial plateau. Palpable dorsalis pedis pulse, right. Flexion extension right knee and right hip intact. Const Vital Signs: 12/09/23 16:42 12/09/23 16:57 12/09/23 18:42 Temperature 98 F 98.2 F Temperature Source Oral Oral Pulse Rate 91 74 Respiratory Rate 18 20 H Respiratory Effort Normal Non-Labored Respiratory Depth Normal Respiratory Pattern Normal Blood Pressure 99/77 Blood Pressure Mean 84 Pulse Ox 100 97 Oxygen Delivery Method Room Air Room Air 12/09/23 19:42 Temperature Temperature Source Pulse Rate 80 Respiratory Rate 17 Respiratory Effort Respiratory Depth Respiratory Pattern Blood Pressure 132/80 H Blood Pressure Mean 97 Pulse Ox 96 Oxygen Delivery Method Room Air MDM MDM MDM Narrative Medical decision making narrative: INR will be checked as concern would be for intracranial hemorrhage given that she struck her head. CTs were obtained of the brain, C-spine, and x-rays of the right hip and right knee to help rule out fracture versus contusion which is also in the differential diagnosis. X-rays of the right hip and the right knee interpreted by myself independently shows no evidence of acute fracture. There is evidence of degenerative arthritis of the right knee. I reviewed the radiology report which confirms my independent interpretation. I reviewed the radiology reports of the CT of the brain which shows no acute process, there are chronic involutional changes. Radiology report of the CT of the cervical spine shows no evidence of acute fracture. INR is therapeutic at 2.3. I do not feel she needs vitamin K for reversal. At this point in time, I feel she can be discharged safely home with follow-up. I have very low concern for delayed intracranial hemorrhage. Closed head injury precautions were discussed with the patient and her daughter. She will be placed in an Long wrap in her right knee and she usually takes tramadol at home so she was given tramadol 100 mg orally prior to discharge. She will follow-up with her primary care provider. Return instructions to the emergency department were reviewed. Disposition is discharged home in stable condition. Lab Data Labs: Laboratory Results - last 24 hr 12/09/23 17:40 PT 25.0 H INR 2.3 Radiography Diagnostic Testing: Clinical Impression(s) from Imaging Studies Brain CT 12/09/23 17:31 IMPRESSION: There are no acute findings. Chronic involutional changes of the brain. Electronically Signed: Giorgi Null MD at 18:17 EDT , Cervical Spine CT 12/09/23 17:31 IMPRESSION: Degenerative changes of the cervical spine. There are no acute findings. Electronically Signed: Giorgi Null MD at 18:18 EDT , Knee X-Ray 12/09/23 17:31 IMPRESSION: Severe degenerative findings of the knee. Electronically Signed: Giorgi Null MD at 18:53 EDT , Hip/Pelvis X-Ray 12/09/23 18:05 IMPRESSION: No evidence of displaced pelvic or hip fracture. 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, Closed head injury, Right knee sprain, Contusion of right hip region Instructions: ED Head Injury (Adult), ED Hip Contusion, ED Knee Sprain, ED Fall Prevention Prescriptions: No Action multivitamin Tablet 1 tab PO DAILY prednisone 10 mg tablet 10 mg PO DAILY PRN (Reason: RA flair) amitriptyline 100 mg tablet 150 mg PO QHS metoprolol tartrate 50 mg tablet 50 mg PO BID Qty: 180 3RF levothyroxine 175 MCG tablet 175 mcg PO DAILY Patient Comments: thyroid pill loperamide 2 MG capsule 2 mg PO DAILY PRN (Reason: Diarrhea) Patient Comments: diarrhea pantoprazole 40 MG tablet 40 mg PO DAILY Patient Comments: acid reflux fluticasone propionate 1 SPRAY spray,suspension 1 spray NASAL DAILY Patient Comments: allergies albuterol sulfate 1 INHALER inhaler 2 puff INHALATION Q6H PRN PRN (Reason: Asthma) Patient Comments: cough, SOB duloxetine 60 MG capsule 60 mg PO DAILY Patient Comments: antidepressant adalimumab 40 mg/0.8 mL syringe kit 40 mg subcut FR gabapentin 300 mg capsule 300 mg PO BID tramadol 50 mg tablet 50 mg PO TID PRN PRN (Reason: pain) Patient Comments: for rheumatoid solifenacin 10 mg tablet 10 mg PO DAILY montelukast 10 mg tablet 10 mg PO DAILY triamterene-hydrochlorothiazid 37.5-25 mg capsule 1 cap PO DAILY amiodarone 200 mg tablet 200 mg PO DAILY Qty: 90 3RF warfarin 2 mg tablet 2 mg PO DAILY Qty: 30 11RF Protocol: Dose Management Condition: Sunday Dose/Route: 6 mg Instruction: 1 x 2 mg tablet, 1 x 4 mg tablet Condition: Sunday Dose/Route: 6 mg Instruction: 1 x 2 mg tablet, 1 x 4 mg tablet Condition: Sunday Dose/Route: 6 mg Instruction: 1 x 2 mg tablet, 1 x 4 mg tablet Condition: Sunday Dose/Route: 6 mg Instruction: 1 x 2 mg tablet, 1 x 4 mg tablet Condition: Dose/Route: 8 mg Instruction: 2 x 4 mg tablets Condition: Sunday Dose/Route: 6 mg Instruction: 1 x 2 mg tablet, 1 x 4 mg tablet Condition: Sunday Dose/Route: 6 mg Instruction: 1 x 2 mg tablet, 1 x 4 mg tablet Protocol Text: Adjustment Start Date: 11/29/23 INR Value: 2.2 INR Date: 11/29/23 Recheck Date: 12/13/23 warfarin 4 mg tablet 4 mg PO DAILY Qty: 120 3RF Protocol: Dose Management Condition: Sunday Dose/Route: 6 mg Instruction: 1 x 2 mg tablet, 1 x 4 mg tablet Condition: Sunday Dose/Route: 6 mg Instruction: 1 x 2 mg tablet, 1 x 4 mg tablet Condition: Sunday Dose/Route: 6 mg Instruction: 1 x 2 mg tablet, 1 x 4 mg tablet Condition: Sunday Dose/Route: 6 mg Instruction: 1 x 2 mg tablet, 1 x 4 mg tablet Condition: Dose/Route: 8 mg Instruction: 2 x 4 mg tablets Condition: Sunday Dose/Route: 6 mg Instruction: 1 x 2 mg tablet, 1 x 4 mg tablet Condition: Sunday Dose/Route: 6 mg Instruction: 1 x 2 mg tablet, 1 x 4 mg tablet Protocol Text: Adjustment Start Date: 11/29/23 INR Value: 2.2 INR Date: 11/29/23 Recheck Date: 12/13/23 Rx Instructions: Take 1 tablet Sun//Sun, and 1.5 tablets on /Sun/Sat/Sun, or as directed Primary Care Provider: David Chambers Referrals: David Chambers MD [Primary Care Provider] - 3-5 Days if not improving Activity Restrictions/Additional Instructions: Continue your tramadol as previously directed for pain. Follow-up with your primary care provider. Return with new or worsening symptoms. Print Language: Turkish Disposition Disposition: Home, Self Care
[2023-12-09 18:00] LABS: International Normalized Ratio 2.3
--- NOTE | 2023-12-09 18:05 | RAD_ITS ---
EXAM: XR RIGHT HIP WITH PELVIS WHEN PERFORMED, 2 OR 3 VIEWS CLINICAL INDICATION: Trauma TECHNIQUE: Two or three views of the right hip with pelvis when performed. COMPARISON: No relevant prior studies available. FINDINGS: BONES/JOINTS: Unremarkable. No displaced fracture. No destructive or sclerotic lesions. Note that overlapping bowel shadows may however obscure fine detail. Sacroiliac joint is unremarkable. No widening of the pubic symphysis. The articular structures are unremarkable. SOFT TISSUES: Unremarkable. No soft tissue swelling or gas. RAD/HIP, UNI W/ Pelvis 2-3 Views IMPRESSION: No evidence of displaced pelvic or hip fracture. Electronically Signed: Giorgi Null MD at 18:53 EDT Reading Location ID and State: [facility] [place] , Service support ,
[2023-12-09 18:42] VITALS: PULSE 74; RESP 20; TEMP 36.8; O2SAT 97
[2023-12-09 19:42] VITALS: BP 132/80; PULSE 80; RESP 17; O2SAT 96
[2023-12-09] MEDS: traMADol 50 MG Tablet 100 MG PO (20:05)
[2023-12-09 20:14] VITALS: BP 128/77; PULSE 81; RESP 16; TEMP 36.7; O2SAT 95
== END 2023-12-09 20:15 | disposition home or self-care (01) ==
PROVIDERS: Emergency Provider Emergency Medicine; PCP Family Medicine; Visit Provider Emergency Medicine
DX: M17.11 Unilateral primary osteoarthritis, right knee (principal); I48.91 Unspecified atrial fibrillation; S70.01XA Contusion of right hip, initial encounter; S83.91XA Sprain of unspecified site of right knee, initial encounter; I10 Essential (primary) hypertension; Z79.01 Long term (current) use of anticoagulants; K21.9 Gastro-esophageal reflux disease without esophagitis; Z79.899 Other long term (current) drug therapy; W19.XXXA Unspecified fall, initial encounter
CPT/HCPCS: 70450; 72125; 73502; 73564; 85610; 99282

== ENCOUNTER 2023-12-27 11:01 | Outpatient (RCR) | payer MEDICARE, SELFPAY ==
[2023-12-27 15:20] LABS: International Normalized Ratio 2.1; Prothrombin Time (Protime)PT. 23.1 SECONDS (11.7-14.9)
== END 2024-01-19 18:00 | disposition home or self-care (01) ==
LOC: MTLAB 11:01
PROVIDERS: PCP Family Medicine; Referring Provider Nurse Practitioner Gerontology; Visit Provider Nurse Practitioner Gerontology
DX: I48.91 Unspecified atrial fibrillation (principal); Z79.01 Long term (current) use of anticoagulants
CPT/HCPCS: 36415; 85610

== ENCOUNTER → 2024-01-09 | Outpatient (CLI) | payer MEDICARE, SELFPAY ==
[2024-01-09 17:56] LABS: Anion Gap 4 (5-15); BUN 16 mg/dL (7-18); BUN/Creat Ratio 16.6 RATIO (10-20); Calcium,Total 8.9 mg/dL (8.5-10.1); Chloride 108 mmol/L (98-107); Creatinine, Serum 0.96 mg/dL (0.55-1.02); EST Glomerular Filtration Rate 61 mL/min (>60); Est Glom Filt Rate - Afr Amer 74 mL/min (>60); Glucose 82 mg/dL (74-106); Potassium 4.1 mmol/L (3.5-5.1); Sodium Level 139 mmol/L (136-145)
== END | disposition home or self-care (01) ==
LOC: MFPLAB 16:03
PROVIDERS: PCP Family Medicine; Visit Provider Family Medicine
DX: R60.9 Edema, unspecified (principal)
CPT/HCPCS: 36415; 80048

== ENCOUNTER → 2024-01-23 | Outpatient (CLI) | payer MEDICARE, SELFPAY ==
[2024-01-23 15:20] LABS: Absolute Lymphocyte Count 2.71 X10^3/uL (0.83-4.51); Absolute Neutrophil Count 2.9 X10^3/uL (2.0-7.7); Basophil# 0.08 X10^3/uL; Basophil% 1.3 % (0-1); Eosinophil# 0.16 X10^3/uL; Eosinophils% 2.5 % (0-5); Hematocrit 44.2 % (37-47); Lymphocyte # 2.71 X10^3/ul (0.83-4.51); Lymphocyte % 42.6 % (19-41); Mean Corp Hgb Conc 31.7 g/dL (32-36); Mean Corpuscular Hgb 29.4 pg (27.0-32.0); Mean Corpuscular Volume 92.7 fL (81-99); Mean Platelet Vol. 10.1 fl (6.2-12.0); Monocyte# 0.49 X10^3/uL; Monocyte% 7.7 % (0-10); NRBC Flagged by Analyzer 0 % (0-5); Neutrophil # 2.91 X10^3/uL (2.7-7.7); Neutrophil % 45.7 % (47-70); Platelet Count 282 K/mm3 (150-450); RBC Distribution Width CV 15.2 % (11.6-14.6); RBC Distribution Width SD 52.6 fl (35.1-43.9); Red Blood Count 4.77 M/mm3 (4.2-5.4); White Blood Count 6.4 K/mm3 (4.4-11.0)
[2024-01-23 15:48] LABS: Cholesterol 140 mg/dL (200); High Density Lipoprotein 50 mg/dL; Triglycerides 187 mg/dL; Very Low Density Lipoprotein 37 mg/dL (5-40)
[2024-01-23 15:51] LABS: ALB/GLOB Ratio 0.8 RATIO (0.9-2.4); AST(SGOT) 29 U/L (15-37); Alanine Aminotransfer ALT/SGPT 41 U/L (13-56); Albumin, Serum 3.2 g/dL (3.2-5.0); Alkaline Phosphatase 62 U/L (45-117); Anion Gap 8 (5-15); BUN 22 mg/dL (7-18); BUN/Creat Ratio 21.4 RATIO (10-20); Calcium,Total 9.1 mg/dL (8.5-10.1); Chloride 106 mmol/L (98-107); Creatinine, Serum 1.03 mg/dL (0.55-1.02); EST Glomerular Filtration Rate 56 mL/min (>60); Est Glom Filt Rate - Afr Amer 68 mL/min (>60); Glucose 91 mg/dL (74-106); Protein, Total 7.2 g/dL (6.4-8.2); Sodium Level 138 mmol/L (136-145)
== END | disposition home or self-care (01) ==
LOC: MFPLAB 11:38
PROVIDERS: PCP Family Medicine; Referring Provider Family Medicine; Visit Provider Family Medicine
DX: E03.9 Hypothyroidism, unspecified (principal); M06.09 Rheumatoid arthritis without rheumatoid factor, multiple sites; M79.7 Fibromyalgia; M17.0 Bilateral primary osteoarthritis of knee; Z79.899 Other long term (current) drug therapy
CPT/HCPCS: 36415; 80053; 80061; 84443; 85025

== ENCOUNTER 2024-02-15 13:23 | Outpatient (RCR) | payer MEDICARE, SELFPAY ==
[2024-02-01 18:51] LABS: International Normalized Ratio 1.5; Prothrombin Time (Protime)PT. 17.9 SECONDS (11.7-14.9)
[2024-02-15 15:14] LABS: International Normalized Ratio 2.1; Prothrombin Time (Protime)PT. 23.6 SECONDS (11.7-14.9)
== END 2024-02-15 18:00 | disposition home or self-care (01) ==
LOC: MTLAB 13:23
PROVIDERS: PCP Family Medicine; Referring Provider Nurse Practitioner Gerontology; Visit Provider Nurse Practitioner Gerontology
DX: I48.91 Unspecified atrial fibrillation (principal); Z79.01 Long term (current) use of anticoagulants
CPT/HCPCS: 36415; 85610

== ENCOUNTER 2024-03-14 13:23 | Outpatient (RCR) | payer MEDICARE, SELFPAY ==
[2024-03-14 15:22] LABS: International Normalized Ratio 3.3; Prothrombin Time (Protime)PT. 34.5 SECONDS (11.7-14.9)
== END 2024-03-14 18:00 | disposition home or self-care (01) ==
LOC: MTLAB 13:23
PROVIDERS: PCP Family Medicine; Referring Provider Nurse Practitioner Gerontology; Visit Provider Nurse Practitioner Gerontology
DX: I48.91 Unspecified atrial fibrillation (principal); Z79.01 Long term (current) use of anticoagulants

== ENCOUNTER 2024-04-17 13:02 | Outpatient (RCR) | payer MEDICARE, SELFPAY ==
[2024-03-26 16:21] LABS: International Normalized Ratio 2.3; Prothrombin Time (Protime)PT. 26.1 SECONDS (11.7-14.9)
[2024-04-17 15:08] LABS: International Normalized Ratio 1.9; Prothrombin Time (Protime)PT. 22.3 SECONDS (11.7-14.9)
== END 2024-04-18 18:00 | disposition home or self-care (01) ==
LOC: MTLAB 13:02
PROVIDERS: PCP Family Medicine; Referring Provider Nurse Practitioner Gerontology; Visit Provider Nurse Practitioner Gerontology
DX: I48.91 Unspecified atrial fibrillation (principal); Z79.01 Long term (current) use of anticoagulants
CPT/HCPCS: 36415; 85610

== ENCOUNTER → 2024-04-23 | Outpatient (CLI) | payer MEDICARE, SELFPAY ==
[2024-04-23 12:35] LABS: Absolute Lymphocyte Count 2.54 X10^3/uL (0.83-4.51); Absolute Neutrophil Count 2.6 X10^3/uL (2.0-7.7); Basophil# 0.07 X10^3/uL; Basophil% 1.2 % (0-1); Eosinophil# 0.16 X10^3/uL; Eosinophils% 2.7 % (0-5); Hemoglobin 13.7 g/dL (12.0-15.0); Lymphocyte # 2.54 X10^3/ul (0.83-4.51); Mean Corp Hgb Conc 31.1 g/dL (32-36); Mean Corpuscular Hgb 28.8 pg (27.0-32.0); Mean Corpuscular Volume 92.6 fL (81-99); Mean Platelet Vol. 9.7 fl (6.2-12.0); Monocyte# 0.54 X10^3/uL; Monocyte% 9.1 % (0-10); NRBC Flagged by Analyzer 0 % (0-5); Neutrophil # 2.59 X10^3/uL (2.7-7.7); Neutrophil % 43.8 % (47-70); Platelet Count 250 K/mm3 (150-450); RBC Distribution Width CV 14.3 % (11.6-14.6); RBC Distribution Width SD 48.3 fl (35.1-43.9); Red Blood Count 4.75 M/mm3 (4.2-5.4); White Blood Count 5.9 K/mm3 (4.4-11.0)
[2024-04-23 12:55] LABS: ALB/GLOB Ratio 1.2 RATIO (0.9-2.4); AST(SGOT) 24 U/L (<=31); Alanine Aminotransfer ALT/SGPT 26 U/L (<=34); Albumin, Serum 3.8 g/dL (3.4-4.8); Alkaline Phosphatase 67 U/L (35-104); Anion Gap 10 (5-15); BUN 21 mg/dL (4-19); BUN/Creat Ratio 22.4 RATIO (10-20); Calcium,Total 8.9 mg/dL (7.6-11.0); Carbon Dioxide 27.7 mmol/L (21.0-32.0); Chloride 105 mmol/L (98-108); Creatinine, Serum 0.93 mg/dL (0.70-1.20); EST Glomerular Filtration Rate 65 (>60); Globulin 3.1 g/dL (2.2-4.2); Glucose 90 mg/dL (70-99); Protein, Total 6.9 g/dL (5.9-8.4); Sodium Level 142 mmol/L (133-145); Total Bilirubin 0.27 mg/dL (0.00-1.30)
== END | disposition home or self-care (01) ==
LOC: MTLAB 11:18
PROVIDERS: PCP Family Medicine; Referring Provider Internal Medicine Rheumatology; Visit Provider Internal Medicine Rheumatology
DX: M06.09 Rheumatoid arthritis without rheumatoid factor, multiple sites (principal); M79.7 Fibromyalgia; M17.0 Bilateral primary osteoarthritis of knee; Z79.899 Other long term (current) drug therapy
CPT/HCPCS: 36415; 80053; 85025

== ENCOUNTER 2024-05-15 15:47 | Outpatient (RCR) | payer MEDICARE, SELFPAY ==
[2024-04-30 13:24] LABS: International Normalized Ratio 2.6
[2024-05-15 18:08] LABS: International Normalized Ratio 1.2; Prothrombin Time (Protime)PT. 15.4 SECONDS (11.7-14.9)
== END 2024-05-15 18:00 | disposition home or self-care (01) ==
LOC: MTLAB 15:47
PROVIDERS: PCP Family Medicine; Referring Provider Nurse Practitioner Gerontology; Visit Provider Nurse Practitioner Gerontology
DX: I48.91 Unspecified atrial fibrillation (principal); Z79.01 Long term (current) use of anticoagulants
CPT/HCPCS: 36415; 85610

== ENCOUNTER → 2024-05-22 | Outpatient (CLI) | payer MEDICARE, SELFPAY ==
[2024-05-22 17:09] LABS: International Normalized Ratio 2.2; Prothrombin Time (Protime)PT. 25.2 SECONDS (11.7-14.9)
[2024-05-22 17:30] LABS: Anion Gap 12 (5-15); BUN 22 mg/dL (4-19); BUN/Creat Ratio 20.8 RATIO (10-20); Carbon Dioxide 24.7 mmol/L (21.0-32.0); Chloride 101 mmol/L (98-108); Creatinine, Serum 1.05 mg/dL (0.70-1.20); EST Glomerular Filtration Rate 57 (>60); Glucose 85 mg/dL (70-99); Potassium 4.1 mmol/L (3.3-5.1); Sodium Level 138 mmol/L (133-145)
== END | disposition home or self-care (01) ==
LOC: MFPLAB 11:43
PROVIDERS: Nurse Practitioner Gerontology; PCP Family Medicine; Referring Provider Family Medicine; Visit Provider Family Medicine
DX: E03.9 Hypothyroidism, unspecified (principal); I48.91 Unspecified atrial fibrillation; R60.9 Edema, unspecified; Z79.01 Long term (current) use of anticoagulants
CPT/HCPCS: 36415; 80048; 84439; 84443; 84481; 85610

== ENCOUNTER 2024-06-04 06:51 | Day surgery (SDC) | payer MEDICARE, SELFPAY ==
--- NOTE | 2024-05-30 13:56 | PAT.ANESEVAL ---
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 When Was Last Pacemaker Check QUESTION #4 FULL TEXT: You/Your Family Experience fever (hyperthermia) with Anesthesia Last Oral Intake Last Oral intake: Last Oral Intake NPO since Meds taken in AM with sips of water? Meds patient instructed to take am of surgery PONV PONV - denture contour wire specialist: PONV - denture contour wire specialist Female Yes 05/30/24 13:26 HX of Motion Sickness No 05/30/24 13:26 HX of N/V After Surgery Yes 05/30/24 13:26 Non-Smoker Yes 05/30/24 13:26 Duration of Surgery greater No 05/30/24 13:26 than 60 minutes Number of Risk Factors 3 05/30/24 13:26 PONV Score Moderate Risk 05/30/24 13:26 Height & Weight Height & Weight: Anesthesia: Height & Weight Height 5 ft 3 in 04/30/24 11:00 Respiratory Assessment Respiratory Assessment - denture contour wire specialist: Respiratory Tract Infection Hx - denture contour wire specialist Hx Respiratory Tract Infection No 05/30/24 13:26 STOP Sleep Apnea STOP Sleep Apnea - denture contour wire specialist: STOP Sleep Apnea - denture contour wire specialist Hx Hypertension Yes: CONTROLLED WITH MED 05/30/24 13:26 Hx Sleep Apnea Yes 05/30/24 13:26 CPAP Yes: NONCOMPLIANT 05/30/24 13:26 BIPAP No 05/30/24 13:26 Do you snore loudly (louder than talking or can be heard Do you often feel tired/ fatigued/ sleepy during daytime? Has anyone observed you stop breathing during sleep? STOP Results Positive 05/30/24 13:26 QUESTION #5 FULL TEXT : Do you snore loudly (louder than talking or can be heard through closed doors)? 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 Specify any problems Hx of Preganancy in last 3 No 05/30/24 13:26 Months Nurse Filling Out Transfusion DSCHRIBER 05/30/24 13:26 & Questions: Date: 05/30/24 05/30/24 13:26 Time: 13:28 05/30/24 13:26 Patient unable to answer at this time (ie. confused, unrespo /Reproduction History /Reproductive History - denture contour wire specialist: /Reproductive Hx- denture contour wire specialist Hx Now No 05/30/24 13:26 Gestational Age (in weeks): EDC: Hx Hx Para Hx Section SAB No 05/30/24 13:26 PFSH Medical History (Updated 05/30/24 @ 13:37 by Isabella Michaels) Falls Loss of hearing Wears glasses Wears dentures Wears partial dentures Cancer Post-menopausal Fibromyalgia Anxiety History of steroid therapy Thyroid disease Bladder disease Walker as ambulation aid Anemia High cholesterol Back pain Migraine headache History of ulceration History of IBS Non-smoker CPAP (continuous positive airway pressure) dependence Asthma Shortness of breath on exertion History of pain when walking History of edema History of echocardiogram History of stress test Cardiology follow-up encounter History of atrial fibrillation Contact with and (suspected) exposure to other viral communicable diseases History of DVT (deep vein thrombosis) SVT (supraventricular tachycardia) Essential hypertension Wound infection after surgery Depression Hypothyroidism Vitamin B12 deficiency Vitamin D deficiency Insomnia Allergic rhinitis GERD (gastroesophageal reflux disease) Morbid obesity Right rotator cuff tear Rheumatoid arthritis Home Medications ?Medication ?Instructions ?Recorded ?Last Taken ?Type fluticasone propionate 50 1 spray NASAL DAILY allergies 10/10/16 Unknown History mcg/actuation nasal spray,suspension loperamide 2 mg capsule 2 mg PO DAILY PRN Diarrhea 11/29/15 01/26/17 05:00 History 2 MG pantoprazole 40 mg tablet,delayed 40 mg PO DAILY reflux 11/29/15 08/01/17 06:00 History release albuterol sulfate 90 mcg/actuation 2 puff inhalation Q6H PRN PRN 12/12/16 Unknown History aerosol inhaler Asthma duloxetine 60 mg capsule,delayed 60 mg PO DAILY mental health 12/12/16 Unknown History release adalimumab 40 mg/0.8 mL 40 mg subcut FR infection 09/29/20 Unknown History subcutaneous syringe kit gabapentin 300 mg capsule 300 mg PO BID nerve pain 09/30/20 Unknown History multivitamin 1 tab PO DAILY vitamin 09/30/20 Unknown History prednisone 10 mg tablet 10 mg PO DAILY PRN RA flair 09/30/20 Unknown History montelukast 10 mg tablet 10 mg PO DAILY asthma 08/07/23 Unknown History solifenacin 10 mg tablet 10 mg PO DAILY rheumatiod 08/07/23 Unknown History tramadol 50 mg tablet 50 mg PO TID PRN PRN pain 08/07/23 Unknown History triamterene 37.5 1 cap PO DAILY BP 08/07/23 Unknown History mg-hydrochlorothiazide 25 mg capsule metoprolol tartrate 50 mg tablet 50 mg PO BID #180 tabs 10/31/23 Unknown Rx colestipol 1 gram tablet 1 g PO QDAY #60 tabs 04/03/24 Unknown Rx Held on 05/30/24. Instructions: Ordered amitriptyline 150 mg tablet 150 mg PO QHS 04/30/24 Unknown History furosemide 20 mg tablet 20 mg PO QDAY PRN edema 04/30/24 Unknown History hydroxychloroquine 200 mg tablet 200 mg PO BID 04/30/24 Unknown History levothyroxine 200 mcg tablet 200 mcg PO QDAY 04/30/24 Unknown History amiodarone 200 mg tablet 200 mg PO DAILY #90 tabs 05/26/24 Unknown Rx warfarin 2 mg tablet 6 mg PO SUMOTUWESA 05/30/24 Unknown History warfarin 4 mg tablet 8 mg PO THFR 05/30/24 Unknown History Allergy/AdvReac Type Severity Reaction Status Date / Time adhesive tape Allergy Rash Verified 05/30/24 13:20 codeine Allergy Hives Verified 05/30/24 13:20 Opioids - Morphine Analogues Allergy Hives Verified 05/30/24 13:20 fosinopril (From Monopril) AdvReac severe Verified 05/30/24 13:20 cough Family History Brother Colon cancer Lung cancer Mother Hypertension Thyroid disorder Father Ulcer Lung cancer Surgical History (Updated 05/30/24 @ 13:37 by Isabella Michaels) Hx of colonoscopy History of bilateral cataract extraction History of cholecystectomy Hx of gastric bypass Encounter for incision and drainage procedure Status post reverse total replacement of right shoulder S/P rotator cuff repair H/O: hysterectomy Social History Smoking Status: Never smoker second hand exposure: No alcohol intake: never substance use type: does not use caffeine: Yes seatbelt use: always Audit: Pertinent Findings Pertinent Findings EKG Perinent findings: Sinus rhythm 71 bpm. Old anterior infarct. Consult pertinent findings: Cardiology 04/29/2024. Atrial fibrillation. Paroxysmal. 08/09/2023 echocardiogram. Normal size and function. Heart rate controlled with Toprol all. Anticoagulation with warfarin. History of SVT. Holter on 08/09/2023 showed normal sinus rhythm with rare PACs. Continue amiodarone. Hypertension. Well-controlled. Pulmonary function results/spirometer pertinent findings: 06/22/2021. Isolated moderate reduction in diffusing capacity. Additional pertinent findings: PT equals 25.2 seconds. Patient is on Coumadin. 05/22/2024 Recommendation Anesthesia Recommendation Anesthesia recommendation: OPTIMIZED for anesthesia
[2024-06-04] VITALS (8 sets, daily range): BP systolic 101–128; BP diastolic 39–68; PULSE 52–72; RESP 16–18; TEMP 36.1–36.8; O2SAT 93–100; BMI 55.0
[2024-06-04 07:10] LABS: INR Fingerstick 1.2; Prothrombin Time Fingerstick 14.3 SEC (11.7-14.9)
--- NOTE | 2024-06-04 07:29 | PRE.ANES_ITS ---
ASA Classification* ASA Classification ASA Classification: 3 Assessment & Plan Anesthesia* Anesthesia Assessment Anesthesia Assessment: Discussed sedation and/or anesthesia options, risks, benefits, and alternatives with patient/parents/legal guardian/POA. Questions invited. The patient/parents/legal guardian/POA seems to understand and agrees to proceed with anesthesia plan. Reviewed the physical assessment, medical history, allergy history and patient home medications list prior to surgery/procedure/anesthetic and documented any changes. Performed airway and anesthesia risk assessments. Anesthesia Type Anesthesia Type: MAC Anesthesia Focused Assessment* Temperature: 97.5 F Pulse Rate: 72 Blood Pressure: 128/61 Respiratory Rate: 18 Pulse Ox: 93 Airway Assessment Mouth opens: >3 cm Mallampati Score: II Focused Labs Anesthesia Preop lab: CBC WBC 5.9 K/mm3 (4.4-11.0) 04/23/24 11:20 04/23/24 RBC 4.75 M/mm3 (4.2-5.4) 04/23/24 11:20 04/23/24 Hgb 13.7 g/dL (12.0-15.0) 04/23/24 11:20 04/23/24 Hct 44.0 % (37-47) 04/23/24 11:20 04/23/24 Plt Count 250 K/mm3 (150-450) 04/23/24 11:20 04/23/24 CHEMISTRY Potassium 4.1 mmol/L (3.3-5.1) 05/22/24 11:45 05/22/24 Sodium 138 mmol/L (133-145) 05/22/24 11:45 05/22/24 Magnesium 1.9 mg/dL (1.6-2.6) 08/06/23 00:52 08/06/23 BUN 22 mg/dL (4-19) H 05/22/24 11:45 05/22/24 Creatinine 1.05 mg/dL (0.70-1.20) 05/22/24 11:45 05/22/24 Glucose 85 mg/dL (70-99) 05/22/24 11:45 05/22/24 TSH 3.930 uIU/mL (0.300-4.200) 05/22/24 11:45 05/13 COAG PT 25.2 SECONDS (11.7-14.9) H 05/22/24 11:46 04/0 05/13 INR 1.0 09/17/23 16:57 09/17/23 Pre-Assessment Diagnosis/Proposed Procedure Planned Operative Procedure(s): CSCOPE Anesthesia History 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 When Was Last Pacemaker Check QUESTION #4 FULL TEXT: You/Your Family Experience fever (hyperthermia) with Anesthesia Last Oral Intake Last Oral intake: Last Oral Intake NPO since 22:00 06/04/24 07:06 Meds taken in AM with sips of Yes 06/04/24 07:06 water? 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 Female Yes 05/30/24 13:26 HX of Motion Sickness No 05/30/24 13:26 HX of N/V After Surgery Yes 05/30/24 13:26 Non-Smoker Yes 05/30/24 13:26 Duration of Surgery greater No 05/30/24 13:26 than 60 minutes Number of Risk Factors 3 05/30/24 13:26 PONV Score Moderate Risk 05/30/24 13:26 Height & Weight Height & Weight: Anesthesia: Height & Weight Height 5 ft 3 in 06/04/24 07:06 Weight: 141 kg 06/04/24 07:06 Body Mass Index (BMI) 55.0 06/04/24 07:06 Respiratory Assessment Respiratory Assessment - 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 Has anyone observed you stop breathing during sleep? STOP Results Positive 05/30/24 13:26 QUESTION #5 FULL TEXT : Do you snore loudly (louder than talking or can be heard through closed doors)? 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 Specify any problems Hx of Preganancy in last 3 No 05/30/24 13:26 Months Nurse Filling Out Transfusion DSCHRIBER 05/30/24 13:26 & Questions: Date: 05/30/24 05/30/24 13:26 Time: 13:28 05/30/24 13:26 Patient unable to answer at this time (ie. 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: /Reproductive Hx- steel crane operator Hx Now No 05/30/24 13:26 Gestational Age (in weeks): EDC: Hx Hx Para Hx Section SAB No 05/30/24 13:26 PFSH Medical History Falls Loss of hearing Wears glasses Wears dentures Wears partial dentures Cancer Post-menopausal Fibromyalgia Anxiety History of steroid therapy Thyroid disease Bladder disease Walker as ambulation aid Anemia High cholesterol Back pain Migraine headache History of ulceration History of IBS Non-smoker CPAP (continuous positive airway pressure) dependence Asthma Shortness of breath on exertion History of pain when walking History of edema History of echocardiogram History of stress test Cardiology follow-up encounter History of atrial fibrillation Contact with and (suspected) exposure to other viral communicable diseases History of DVT (deep vein thrombosis) SVT (supraventricular tachycardia) Essential hypertension Wound infection after surgery Depression Hypothyroidism Vitamin B12 deficiency Vitamin D deficiency Insomnia Allergic rhinitis GERD (gastroesophageal reflux disease) Morbid obesity Right rotator cuff tear Rheumatoid arthritis Home Medications ?Medication ?Instructions ?Recorded ?Last Taken ?Type fluticasone propionate 50 1 spray NASAL DAILY allergie s 11/29/15 Unknown History mcg/actuation nasal spray,suspension loperamide 2 mg capsule 2 mg PO DAILY PRN Diarrhea 1 01/26/17 05:00 History 2 MG pantoprazole 40 mg tablet,delayed 40 mg PO DAILY reflu x 11/29/15 06/03/24 History release albuterol sulfate 90 mcg/actuation 2 puff inhalation Q 6H PRN PRN 12/12/16 Unknown History aerosol inhaler Asthma duloxetine 60 mg capsule,delayed 60 mg PO DAILY mental health 12/12/16 06/03/24 History release adalimumab 40 mg/0.8 mL 40 mg subcut FR infection Unknown History subcutaneous syringe kit gabapentin 300 mg capsule 300 mg PO BID nerve pain 02/0806/03/24 History multivitamin 1 tab PO DAILY vitamin 09/3006/03/24 History prednisone 10 mg tablet 10 mg PO DAILY PRN RA flair 09/30/20 Unknown History montelukast 10 mg tablet 10 mg PO DAILY asthma 06/03/24 History solifenacin 10 mg tablet 10 mg PO DAILY rheumatiod 06/03/24 History tramadol 50 mg tablet 50 mg PO TID PRN PRN pain 06/03/24 History triamterene 37.5 1 cap PO DAILY BP 08/07/23 0 06/04/24 History mg-hydrochlorothiazide 25 mg capsule metoprolol tartrate 50 mg tablet 50 mg PO BID #180 tab s 10/31/23 06/04/24 Rx colestipol 1 gram tablet 1 g PO QDAY #60 tabs 5 Unknown Rx Held on 05/30/24. Instructions: MD Ordered amitriptyline 150 mg tablet 150 mg PO QHS 04/30/24 History furosemide 20 mg tablet 20 mg PO QDAY PRN edema 04/19 04/15 Unknown History hydroxychloroquine 200 mg tablet 200 mg PO BID 5 06/03/24 History levothyroxine 200 mcg tablet 200 mcg PO QDAY 04/30/24 06/03/24 History amiodarone 200 mg tablet 200 mg PO DAILY #90 tabs 09/1206/04/24 Rx warfarin 2 mg tablet 6 mg PO SUMOTUWESA 05/30/24 05/31/24 History warfarin 4 mg tablet 8 mg PO THFR 05/30/24 History Allergy/AdvReac Type Severity Reaction Status Date / Time adhesive tape Allergy Rash Verified 06/04/24 07:04 codeine Allergy Hives Verified 06/04/24 07:04 Opioids - Morphine Analogues Allergy Hives Verified 06/04/24 07:04 fosinopril (From Monopril) AdvReac severe Verified 06/04/24 07:04 cough Family History Brother Colon cancer Lung cancer Mother Hypertension Thyroid disorder Father Ulcer Lung cancer Surgical History Hx of colonoscopy History of bilateral cataract extraction History of cholecystectomy Hx of gastric bypass Encounter for incision and drainage procedure Status post reverse total replacement of right shoulder S/P rotator cuff repair H/O: hysterectomy Social History Smoking Status: Never smoker second hand exposure: No alcohol intake: never substance use type: does not use caffeine: Yes seatbelt use: always Review of Systems (Anesthesia) ROS Narrative System reviewed and no additional complaints, except as documented.
--- NOTE | 2024-06-04 07:56 | PCM.HP.STD ---
HPI - General General Date of Admission: 06/04/24 Date of Service: 06/04/24 Chief Complaint: diarrhea HPI Narrative JORDAN BLUM, is a 73 F who presents for the evaluation of chronic diarrhea Pt is here today to be scheduled for a screening colonoscopy. Pt has a PMHx of radiation to the abd for uterine cancer in 1989, gastric bypass and cholecystectomy. Pt has been experiencing chronic diarrhea since her radiation and feels it is related. Pt has seen Dr. Malone in the past but has never had any treatment for diarrhea besides PRN loperamide. Last colonoscopy was 5 years ago. She is unsure about the findings. She takes PPI daily but only has heartburn on occasion. [facility] Medical History Falls Loss of hearing Wears glasses Wears dentures Wears partial dentures Cancer Post-menopausal Fibromyalgia Anxiety History of steroid therapy Thyroid disease Bladder disease Walker as ambulation aid Anemia High cholesterol Back pain Migraine headache History of ulceration History of IBS Non-smoker CPAP (continuous positive airway pressure) dependence Asthma Shortness of breath on exertion History of pain when walking History of edema History of echocardiogram History of stress test Cardiology follow-up encounter History of atrial fibrillation Contact with and (suspected) exposure to other viral communicable diseases History of DVT (deep vein thrombosis) SVT (supraventricular tachycardia) Essential hypertension Wound infection after surgery Depression Hypothyroidism Vitamin B12 deficiency Vitamin D deficiency Insomnia Allergic rhinitis GERD (gastroesophageal reflux disease) Morbid obesity Right rotator cuff tear Rheumatoid arthritis Home Medications ?Medication ?Instructions ?Recorded ?Last Taken ?Type fluticasone propionate 50 1 spray NASAL DAILY allergies 11/29/15 Unknown History mcg/actuation nasal spray,suspension loperamide 2 mg capsule 2 mg PO DAILY PRN Diarrhea 11/29/15 01/26/17 05:00 History 2 MG pantoprazole 40 mg tablet,delayed 40 mg PO DAILY reflux 11/29/15 06/03/24 History release albuterol sulfate 90 mcg/actuation 2 puff inhalation Q6H PRN PRN 12/12/16 Unknown History aerosol inhaler Asthma duloxetine 60 mg capsule,delayed 60 mg PO DAILY mental health 12/12/16 06/03/24 History release adalimumab 40 mg/0.8 mL 40 mg subcut FR infection 09/29/20 Unknown History subcutaneous syringe kit gabapentin 300 mg capsule 300 mg PO BID nerve pain 09/30/20 06/03/24 History multivitamin 1 tab PO DAILY vitamin 09/30/20 06/03/24 History prednisone 10 mg tablet 10 mg PO DAILY PRN RA flair 09/30/20 Unknown History montelukast 10 mg tablet 10 mg PO DAILY asthma 08/07/23 06/03/24 History solifenacin 10 mg tablet 10 mg PO DAILY rheumatiod 08/07/23 06/03/24 History tramadol 50 mg tablet 50 mg PO TID PRN PRN pain 08/07/23 06/03/24 History triamterene 37.5 1 cap PO DAILY BP 08/07/23 06/04/24 History mg-hydrochlorothiazide 25 mg capsule metoprolol tartrate 50 mg tablet 50 mg PO BID #180 tabs 10/31/23 06/04/24 Rx colestipol 1 gram tablet 1 g PO QDAY #60 tabs 04/03/24 Unknown Rx Held on 05/30/24. Instructions: MD Ordered amitriptyline 150 mg tablet 150 mg PO QHS 04/30/24 06/03/24 History furosemide 20 mg tablet 20 mg PO QDAY PRN edema 04/30/24 Unknown History hydroxychloroquine 200 mg tablet 200 mg PO BID 04/30/24 06/03/24 History levothyroxine 200 mcg tablet 200 mcg PO QDAY 04/30/24 06/03/24 History amiodarone 200 mg tablet 200 mg PO DAILY #90 tabs 05/26/24 06/04/24 Rx warfarin 2 mg tablet 6 mg PO SUMOTUWESA 05/30/24 05/31/24 History warfarin 4 mg tablet 8 mg PO THFR 05/30/24 05/31/24 History Allergy/AdvReac Type Severity Reaction Status Date / Time adhesive tape Allergy Rash Verified 06/04/24 07:04 codeine Allergy Hives Verified 06/04/24 07:04 Opioids - Morphine Analogues Allergy Hives Verified 06/04/24 07:04 fosinopril (From Monopril) AdvReac severe Verified 06/04/24 07:04 cough Family History Brother Colon cancer Lung cancer Mother Hypertension Thyroid disorder Father Ulcer Lung cancer Surgical History Hx of colonoscopy History of bilateral cataract extraction History of cholecystectomy Hx of gastric bypass Encounter for incision and drainage procedure Status post reverse total replacement of right shoulder S/P rotator cuff repair H/O: hysterectomy Social History Smoking Status: Never smoker second hand exposure: No alcohol intake: never substance use type: does not use caffeine: Yes seatbelt use: always ROS Constitutional Constitutional: Denies fatigue, fever(s), poor appetite, weight gain or weight loss Gastrointestinal Gastrointestinal: Denies belching, bloating, change in bowel habits, change in stool character, chewing difficulty, coffee ground emesis, constipation, cramping, diarrhea, dyspepsia, dysphagia, early satiety, excessive flatus, fecal incontinence, heartburn, hematemesis, hematochezia, hemorrhoids, loose stools, melena, nausea, odynophagia, rectal bleeding, tenesmus, vomiting or weight changes Vital Signs Vital Signs Vital Signs: 06/04/24 07:06 06/04/24 07:06 06/04/24 07:29 Temperature 97.5 F L 97.5 F L Temperature Source Temporal Pulse Rate 72 72 Respiratory Rate 18 18 Respiratory Pattern Normal Blood Pressure 128/61 H 128/61 H Blood Pressure Mean 83 Blood Pressure Source Monitor Blood Pressure Position Semi-Fowlers Blood Pressure Location Left Arm Pulse Ox 93 93 Oxygen Delivery Method Room Air Weight Weight: 310 lb 13.628 oz Body Mass Index (BMI) 55.0 Physical Exam Narrative General: Alert, Oriented x3, Cooperative, No apparent distress HEENT: Atraumatic, PERRLA, EOMI, Normocephalic Oral: Moist Mucosa Neck: Supple, No JVD Lungs: Diminished, normal air movement, No rhonchi, No wheeze, No rales Cardiovascular: Regular rate, regular rhythm, Normal S1, Normal S2, No murmurs Abdomen: Soft, Non Tender, Non-Distended, No Hepato-splenomegaly Extremities: No edema, Capillary Refill Less than 3 Seconds Psych/Mental Status: Normal Affect, Appropriate Results Lab / Micro Data Labs: Laboratory Results - last 24 hr 06/04/24 07:07: POC PT 14.3, INR 1.2 Assessment & Plan Assessment/Plan (1) Chronic diarrhea: PLAN: Assessment and Plan Assessment and Plan (1) Chronic diarrhea: Status: Chronic Plan: This is a 73 yo female pt here today to scheduled a colonoscopy. Pt has a long hx of diarrhea starting after radiation to the abd in 1989. Pt has seen Dr. Malone previously with last colonoscopy being 5 years ago. She will undergo colonoscopy for colon cancer screening and to rule out inflammation. Pt uses loperamide PRN. I will start her on colestipol 1 gram daily. She will f/u after procedure. -Colonoscopy -Start colestipol 1 gram daily -f/u after procedure Medications: New colestipol 1 g PO QDAY 60 tabs 2RF
--- NOTE | 2024-06-04 08:00 | COLBX_PTH ---
PATIENT: JORDAN BLUM LOC: EN U#:[id number] AGE/SX: 73/F ROOM: RE06/04/[address]: Dr. Guille Perez DO : 1950 BED: DIS: 06/04/2024 SPEC #: [id number] RECD: 06/04/24 14:28 STATUS: REGIS REQ #: [id number] FLOR: 06/04/24 08:[address]: Guille Perez DEPT: SURGICAL PATHOLOGY RECD BY: Filemon Perkins ENTERED: 06/04/24 14:29 SP TYPE: COLON BX OTHR DR: Dr. David Chambers MD Tissues: A - Cecum, NOS B - Ileum, NOS C - COLON BIOPSY D - Rectum, NOS Procedures: Surgery Specimen Level IV HEADER OPERATION: Colonoscopy with biopsies and polypectomy PRE-OP DIAGNOSIS: Chronic diarrhea TISSUE SUBMITTED: A- Cecum polyp, B- Terminal ileum biopsy, C- Hepatic flexure polyp,D- Rectal polyps MICROSCOPIC DIAGNOSIS A. Colon, cecum, polyp, biopsy: * Sessile serrated adenoma B. Small bowel, terminal ileum, biopsy: * Small bowel mucosa with no pathologic change C. Colon, hepatic flexure, polyp, biopsy: * Tubular adenoma D. Rectum, polyp, biopsy: * Tubular adenoma MICROSCOPIC DESCRIPTION Slides are reviewed. GROSS DESCRIPTION A. Received in formalin in a container labeled with the patient's name, date of , and cecum polyp are multiple haque-pink fragments of mucosal tissue measuring 1.7 x 0.6 x 0.3 cm in aggregate. Submitted in toto in A1. B. Received in formalin in a container labeled with the patient's name, date of , and terminal ileum biopsy are multiple haque-pink fragments of mucosal tissue measuring 1.0 x 0.5 x 0.2 cm in aggregate. Submitted in toto in B1. C. Received in formalin in a container labeled with the patient's name, date of , and hepatic flexure polyp are multiple haque-pink fragments of mucosal tissue measuring 1.0 x 0.7 x 0.2 cm in aggregate. Submitted in toto in C1. D. Received in formalin in a container labeled with the patient's name, date of , and rectal polyps are multiple haque-pink fragments of mucosal tissue measuring 1.7 x 1.2 x 0.3 cm in aggregate. Submitted in toto in D1. [facility] 06/10/2024 CPT:36195m9
--- NOTE | 2024-06-04 09:08 | OP.COLON_ITS ---
Patient Name: Iris Vance Procedure Date: 06/04/2024 8:02 AM Date of : 1950 Age: 73 Procedure: Colonoscopy Indications: Chronic diarrhea Providers: Guille Perez DO Referring MD: David Chambers MD Medicines: Monitored Anesthesia Care Patient Profile: This is a 73 year old female. Refer to note in patient chart for documentation of history and physical. Last Colonoscopy: several years ago. Complications: No immediate complications. Procedure: Pre-Anesthesia Assessment: - Prior to the procedure, a History and Physical was performed, and patient medications and allergies were reviewed. The patient is competent. The risks and benefits of the procedure and the sedation options and risks were discussed with the patient. All questions were answered and informed consent was obtained. Patient identification and proposed procedure were verified by the physician in the pre-procedure area. Mental Status Examination: alert and oriented. Airway Examination: normal oropharyngeal airway and neck mobility. Respiratory Examination: clear to auscultation. CV Examination: normal. Prophylactic Antibiotics: The patient does not require prophylactic antibiotics. Prior Anticoagulants: The patient has taken no anticoagulant or antiplatelet agents except for NSAID medication. ASA Grade Assessment: II - A patient with mild systemic disease. After reviewing the risks and benefits, the patient was deemed in satisfactory condition to undergo the procedure. The anesthesia plan was to use monitored anesthesia care (MAC). Immediately prior to administration of medications, the patient was re-assessed for adequacy to receive sedatives. The heart rate, respiratory rate, oxygen saturations, blood pressure, adequacy of pulmonary ventilation, and response to care were monitored throughout the procedure. The physical status of the patient was re-assessed after the procedure. After I obtained informed consent, the scope was passed under direct vision. Throughout the procedure, the patient's blood pressure, pulse, and oxygen saturations were monitored continuously. The Colonoscope was introduced through the anus and advanced to the terminal ileum. The colonoscopy was performed without difficulty. The patient tolerated the procedure well. The quality of the bowel preparation was adequate. The terminal ileum, ileocecal valve, appendiceal orifice, and rectum were photographed. Scope In: 8:29:29 AM Scope Withdrawal Time 0 hours 23 minutes 9 seconds Scope Out: 8:56:44 AM Total Procedure Duration Time 0 hours 27 minutes 15 seconds Findings: The perianal and digital rectal examinations were normal. Seven sessile polyps were found in the rectum, ascending colon and cecum. The polyps were 1 to 2 mm in size. These polyps were removed with a cold snare. Resection and retrieval were complete. Verification of patient identification for the specimen was done. Estimated blood loss was minimal. Two medium-sized localized angiodysplastic lesions without bleeding were found in the recto-sigmoid colon and in the sigmoid colon. Coagulation for bleeding prevention using monopolar probe was successful. Estimated blood loss was minimal. Multiple small and large-mouthed diverticula were found in the recto-sigmoid colon, sigmoid colon, descending colon, hepatic flexure and ascending colon. Patchy mild inflammation characterized by congestion (edema) and erythema was found in the terminal ileum. Biopsies were taken with a cold forceps for histology. Verification of patient identification for the specimen was done. Estimated blood loss was minimal. Impression: - Seven 1 to 2 mm polyps in the rectum, in the ascending colon and in the cecum, removed with a cold snare. Resected and retrieved. - Two non-bleeding colonic angiodysplastic lesions. Treated with a monopolar probe. - Diverticulosis in the recto-sigmoid colon, in the sigmoid colon, in the descending colon, at the hepatic flexure and in the ascending colon. - Mild inflammation was found in the ileum secondary to ileitis. Biopsied. Recommendation: - Discharge patient to home. - Resume previous diet. - Continue present medications. - Await pathology results. - Repeat colonoscopy in 1 year for surveillance. Procedure Code(s): --- Professional --- 74151, 59, Colonoscopy, flexible; with control of bleeding, any method 16041, Colonoscopy, flexible; with removal of tumor(s), polyp(s), or other lesion(s) by snare technique 24822, 59, Colonoscopy, flexible; with biopsy, single or multiple CPT copyright 2021 [employer]. All rights reserved. The codes documented in this report are preliminary and upon workforce specialist review may be revised to meet current compliance requirements. Guille Perez DO 06/04/2024 9:08:16 AM This report has been signed electronically. Number of Addenda: 0 Note Initiated On: 06/04/2024 8:02 AM
--- NOTE | 2024-06-04 09:08 | PCM.POST.ANE ---
Anesthesia: Postop Eval I Current Vital Signs Temperature: 97 F Pulse Rate: 55 Blood Pressure: 101/67 Respiratory Rate: 16 Pulse Ox: 100 Oxygen Delivery Method: Room Air Assessment Airway patent: Yes Spontaneous unlabored respirations: Yes Mental status: Asleep nausea: No Vomiting: No Anesthesia Complication: No Fluid Hydration Crystalloid volume administer (ml): 55 Total IV fluid infused: 55 Progress Note Anesthesia document: Postop Eval 1 completed: Yes
--- NOTE | 2024-06-04 09:09 | OP.CCLET_ITS ---
06/04/2024 David Chambers MD [address] [phone] Re : Colonoscopy procedure for Iris Vance Dear Dr. Chambers This procedure was performed on Tuesday, June 04, 2024. My impressions and recommendations are as follows: Impressions : - Seven 1 to 2 mm polyps in the rectum, in the ascending colon and in the cecum, removed with a cold snare. Resected and retrieved. - Two non-bleeding colonic angiodysplastic lesions. Treated with a monopolar probe. - Diverticulosis in the recto-sigmoid colon, in the sigmoid colon, in the descending colon, at the hepatic flexure and in the ascending colon. - Mild inflammation was found in the ileum secondary to ileitis. Biopsied. Recommendations : - Discharge patient to home. - Resume previous diet. - Continue present medications. - Await pathology results. - Repeat colonoscopy in 1 year for surveillance. My findings are described in the full procedure note, which is enclosed. If I can be of further assistance, please feel free to contact me at . Sincerely, Guille Perez DO 06/04/2024 9:08:16 AM This report has been signed electronically.
--- NOTE | 2024-06-04 09:15 | PCM.POSTANE2 ---
Anesthesia Postop Eval I Sum Postop Eval Completion status Anesthesia document: Postop Eval 1 completed: Yes Anesthesia Postop Eval I Summary Anesthesia Postop Eval I Summary: Anesthesia Postop Eval I: Assessment Summary Airway patent Yes 06/04/24 09:09 [email or web address] Spontaneous unlabored Yes 06/04/24 09:09 [email or web address] respirations Mental status Asleep 06/04/24 09:09 [email or web address] nausea No 06/04/24 09:09 [email or web address] Vomiting No 06/04/24 09:09 [email or web address] Anesthesia Postop Eval I: Fluid Summary Crystalloid volume administer 55 06/04/24 09:09 [email or web address] (ml) Colloids volume administered ( ml) Blood Product volume administered (ml) Total IV fluid infused 55 06/04/24 09:09 [email or web address] Anesthesia Postop Eval I: Summary Notes Anesthesia Complication No 06/04/24 09:09 [email or web address] Anesthesia Complication Comment: Post-operative progress note Anesthesia: Postop Eval II Evaluation Mental status: Awake Pain Level: 0 nausea: No Vomiting: No
== END 2024-06-04 09:50 | disposition home or self-care (01) ==
LOC: EN 06:52 → AC 06:53
PROVIDERS: PCP Family Medicine; Referring Provider Family Medicine; Visit Provider Internal Medicine Gastroenterology
PROC: 0DJD8ZZ Inspection of Lower Intestinal Tract, Via Natural or Artificial Opening Endoscopic (ICD-10-PCS; CPT 45378; principal; 2024-06-04 07:55)
DX: Z12.11 Encounter for screening for malignant neoplasm of colon (principal); K52.9 Noninfective gastroenteritis and colitis, unspecified; I10 Essential (primary) hypertension; K21.9 Gastro-esophageal reflux disease without esophagitis; K57.30 Diverticulosis of large intestine without perforation or abscess without bleeding; K62.1 Rectal polyp; E78.00 Pure hypercholesterolemia, unspecified; Z98.84 Bariatric surgery status; Z90.49 Acquired absence of other specified parts of digestive tract; J45.909 Unspecified asthma, uncomplicated; Z79.899 Other long term (current) drug therapy; Z79.890 Hormone replacement therapy; Z79.01 Long term (current) use of anticoagulants; E03.9 Hypothyroidism, unspecified; K55.20 Angiodysplasia of colon without hemorrhage; D12.0 Benign neoplasm of cecum; D12.5 Benign neoplasm of sigmoid colon; D12.7 Benign neoplasm of rectosigmoid junction
CPT/HCPCS: 45385; 45380; 45382; 36416; 85610; 88305; A4216; J2405

== ENCOUNTER 2024-06-12 16:04 | Outpatient (RCR) | payer MEDICARE, SELFPAY ==
[2024-06-12 18:30] LABS: International Normalized Ratio 1.8; Prothrombin Time (Protime)PT. 21.5 SECONDS (11.7-14.9)
== END 2024-06-18 18:00 | disposition home or self-care (01) ==
LOC: MTLAB 16:04
PROVIDERS: PCP Family Medicine; Referring Provider Nurse Practitioner Gerontology; Visit Provider Nurse Practitioner Gerontology
DX: I48.91 Unspecified atrial fibrillation (principal); Z79.01 Long term (current) use of anticoagulants
CPT/HCPCS: 36415; 85610

== ENCOUNTER 2024-07-10 10:55 | Outpatient (RCR) | payer MEDICARE, SELFPAY ==
[2024-06-25 12:08] LABS: International Normalized Ratio 1.9; Prothrombin Time (Protime)PT. 21.9 SECONDS (11.7-14.9)
[2024-06-25 12:49] LABS: Anion Gap 10 (5-15); BUN 27 mg/dL (4-19); BUN/Creat Ratio 23.3 RATIO (10-20); Carbon Dioxide 27.3 mmol/L (21.0-32.0); Chloride 103 mmol/L (98-108); Creatinine, Serum 1.14 mg/dL (0.70-1.20); EST Glomerular Filtration Rate 51 (>60); Glucose 92 mg/dL (70-99); Sodium Level 140 mmol/L (133-145)
[2024-06-30 04:07] LABS: Thyroid Stim Immunoglob <0.10 IU/L (0.00-0.55)
[2024-07-10 12:23] LABS: International Normalized Ratio 3.1; Prothrombin Time (Protime)PT. 32.3 SECONDS (11.7-14.9)
== END 2024-07-10 18:00 | disposition home or self-care (01) ==
LOC: MTLAB 10:55
PROVIDERS: PCP Family Medicine; Referring Provider Nurse Practitioner Gerontology; Visit Provider Nurse Practitioner Gerontology
DX: I48.91 Unspecified atrial fibrillation (principal); Z79.01 Long term (current) use of anticoagulants; I10 Essential (primary) hypertension; Z51.81 Encounter for therapeutic drug level monitoring
CPT/HCPCS: 36415; 80048; 84443; 84445; 85610

== ENCOUNTER 2024-08-06 13:51 | Outpatient (RCR) | payer MEDICARE, SELFPAY ==
[2024-07-21 15:34] LABS: Absolute Lymphocyte Count 2.93 X10^3/uL (0.83-4.51); Absolute Neutrophil Count 3.1 X10^3/uL (2.0-7.7); Basophil# 0.09 X10^3/uL; Basophil% 1.3 % (0-1); Eosinophil# 0.17 X10^3/uL; Eosinophils% 2.5 % (0-5); Hematocrit 43.2 % (37-47); Hemoglobin 13.9 g/dL (12.0-15.0); Lymphocyte # 2.93 X10^3/ul (0.83-4.51); Mean Corp Hgb Conc 32.2 g/dL (32-36); Mean Corpuscular Hgb 29.4 pg (27.0-32.0); Mean Corpuscular Volume 91.5 fL (81-99); Mean Platelet Vol. 11.4 fl (6.2-12.0); Monocyte# 0.54 X10^3/uL; Monocyte% 7.9 % (0-10); NRBC Flagged by Analyzer 0 % (0-5); Neutrophil # 3.07 X10^3/uL (2.7-7.7); Neutrophil % 45.2 % (47-70); Platelet Count 340 K/mm3 (150-450); RBC Distribution Width CV 16.1 % (11.6-14.6); RBC Distribution Width SD 54.5 fl (35.1-43.9); Red Blood Count 4.72 M/mm3 (4.2-5.4); White Blood Count 6.8 K/mm3 (4.4-11.0)
[2024-07-21 15:35] LABS: ALB/GLOB Ratio 1.2 RATIO (0.9-2.4); AST(SGOT) 41 U/L (<=31); Alanine Aminotransfer ALT/SGPT 37 U/L (<=34); Albumin, Serum 3.6 g/dL (3.4-4.8); Alkaline Phosphatase 82 U/L (35-104); Anion Gap 11 (5-15); BUN 24 mg/dL (4-19); BUN/Creat Ratio 21.8 RATIO (10-20); Calcium,Total 9.2 mg/dL (7.6-11.0); Carbon Dioxide 26.6 mmol/L (21.0-32.0); Chloride 104 mmol/L (98-108); Creatinine, Serum 1.11 mg/dL (0.70-1.20); EST Glomerular Filtration Rate 53 (>60); Glucose 86 mg/dL (70-99); Potassium 4.5 mmol/L (3.3-5.1); Protein, Total 6.7 g/dL (5.9-8.4); Sodium Level 141 mmol/L (133-145); Total Bilirubin 0.25 mg/dL (0.00-1.30)
[2024-07-21 15:49] LABS: Prothrombin Time (Protime)PT. 39.5 SECONDS (11.7-14.9)
[2024-07-29 12:27] LABS: International Normalized Ratio 3.6; Prothrombin Time (Protime)PT. 36.8 SECONDS (11.7-14.9)
[2024-07-29 13:02] LABS: Cholesterol 153 mg/dL (<=200); Free T3 1.8 pg/mL (2.18-3.98); High Density Lipoprotein 54 mg/dL; Low Density Lipoprotein Calc. 71 mg/dL; Triglycerides 143 mg/dL; Very Low Density Lipoprotein 29 mg/dL (5-40); cholesterol:hdl ratio screen 2.84
[2024-08-06 15:54] LABS: International Normalized Ratio 2.1; Prothrombin Time (Protime)PT. 23.6 SECONDS (11.7-14.9)
== END 2024-08-06 18:00 | disposition home or self-care (01) ==
LOC: MTLAB 13:51
PROVIDERS: PCP Family Medicine; Referring Provider Nurse Practitioner Gerontology; Visit Provider Nurse Practitioner Gerontology
DX: I48.91 Unspecified atrial fibrillation (principal); Z79.01 Long term (current) use of anticoagulants; E03.9 Hypothyroidism, unspecified; I10 Essential (primary) hypertension
CPT/HCPCS: 36415; 80053; 80061; 84439; 84443; 84481; 85025; 85610

== ENCOUNTER 2024-09-17 09:42 | Outpatient (RCR) | payer MEDICARE, SELFPAY ==
[2024-08-20 15:57] LABS: Prothrombin Time (Protime)PT. 26.1 SECONDS (11.7-14.9)
[2024-09-10 18:58] LABS: Prothrombin Time (Protime)PT. 16.5 SECONDS (11.7-14.9)
[2024-09-10 20:33] LABS: AST(SGOT) 27 U/L (<=31); Alanine Aminotransfer ALT/SGPT 32 U/L (<=34); Albumin, Serum 3.8 g/dL (3.4-4.8); Alkaline Phosphatase 73 U/L (35-104); Bilirubin, Direct 0.14 mg/dL (0.00-0.30); Cholesterol 135 mg/dL (<=200); Globulin 3.1 g/dL (2.2-4.2); Low Density Lipoprotein Calc. 48 mg/dL; Triglycerides 145 mg/dL; Very Low Density Lipoprotein 29 mg/dL (5-40); cholesterol:hdl ratio screen 2.32
[2024-09-17 12:42] LABS: Prothrombin Time (Protime)PT. 20.8 SECONDS (11.7-14.9)
== END 2024-09-18 18:00 | disposition home or self-care (01) ==
LOC: MTLAB 09:42
PROVIDERS: Internal Medicine Cardiovascular Disease; Physician Assistant Medical; PCP Family Medicine; Referring Provider Nurse Practitioner Gerontology; Visit Provider Nurse Practitioner Gerontology
DX: I48.91 Unspecified atrial fibrillation (principal); Z79.01 Long term (current) use of anticoagulants; E78.00 Pure hypercholesterolemia, unspecified; R07.9 Chest pain, unspecified
CPT/HCPCS: 36415; 80061; 80076; 85610

== ENCOUNTER → 2024-09-17 | Outpatient (CLI) | payer MEDICARE, SELFPAY ==
--- NOTE | 2024-09-17 08:31 | BI_ITS ---
EXAM: SCRN MAMM (CAD)W/LUZMARIA BILAT DATE: 09/17/2024 CLINICAL HISTORY: F, Age 73 y/o , SCREENING TECHNIQUE: SCRN MAMM (CAD)W/LUZMARIA BILAT COMPARISON: Prior exam(s) dated 02/02/2022, 07/02/2018. FINDINGS: TISSUE DENSITY: The breasts are almost entirely fatty. Bilateral Breast Mammographic Findings: No significant masses, calcifications or other abnormalities are identified. BI/SCRN MAMM (CAD)W/LUZMARIA BILAT IMPRESSION: There is no mammographic evidence of malignancy. OVERALL FINAL ASSESSMENT BI-RADS 1: NEGATIVE. RECOMMENDATION: Routine annual follow-up in 1 Year A letter with findings and recommendations will be mailed to the patient. Reading Location: [id number]
== END | disposition home or self-care (01) ==
LOC: OPBI 08:30
PROVIDERS: PCP Family Medicine; Referring Provider Family Medicine; Visit Provider Family Medicine
DX: Z12.31 Encounter for screening mammogram for malignant neoplasm of breast (principal)
CPT/HCPCS: 77063; 77067

== ENCOUNTER 2024-10-09 10:51 | Outpatient (RCR) | payer MEDICARE, SELFPAY ==
[2024-09-22 15:27] LABS: Hematocrit 40.1 % (37-47); Hemoglobin 12.8 g/dL (12.0-15.0); Immature Granulocytes Count 0.010 X10^3/uL (0.0-0.0); Mean Corp Hgb Conc 31.9 g/dL (32-36); Mean Corpuscular Volume 92.2 fL (81-99); Mean Platelet Vol. 9.8 fl (6.2-12.0); NRBC Flagged by Analyzer 0 % (0-5); Platelet Count 268 K/mm3 (150-450); RBC Distribution Width CV 14.7 % (11.6-14.6); RBC Distribution Width SD 50.5 fl (35.1-43.9); Red Blood Count 4.35 M/mm3 (4.2-5.4); White Blood Count 5.8 K/mm3 (4.4-11.0)
[2024-09-22 15:31] LABS: Prothrombin Time (Protime)PT. 24.4 SECONDS (11.7-14.9)
[2024-09-30 12:21] LABS: Prothrombin Time (Protime)PT. 16.7 SECONDS (11.7-14.9)
[2024-10-09 12:46] LABS: Prothrombin Time (Protime)PT. 26.1 SECONDS (11.7-14.9)
== END 2024-10-09 18:00 | disposition home or self-care (01) ==
LOC: MTLAB 10:51
PROVIDERS: Internal Medicine Cardiovascular Disease; PCP Family Medicine; Referring Provider Nurse Practitioner Gerontology; Visit Provider Nurse Practitioner Gerontology
DX: I48.91 Unspecified atrial fibrillation (principal); Z79.01 Long term (current) use of anticoagulants; R04.0 Epistaxis
CPT/HCPCS: 36415; 85025; 85610

== ENCOUNTER → 2024-10-22 | Outpatient (CLI) | payer MEDICARE, SELFPAY ==
--- NOTE | 2024-10-22 12:59 | VDLE_ITS ---
Reason For Study Reason For Study: RLE Pain RIGHT GSV is normal. CFV is compressible, spontaneous, phasic, competent and demonstrates normal augmentation. FV is compressible, spontaneous, phasic, competent and demonstrates normal augmentation. POP V is compressible, spontaneous, phasic, competent and demonstrates normal augmentation. T/P Trunk is compressible. PTV is compressible. RT PerV is compressible. Nonvascularized area of mixed echogenicity noted throughout Rt Pop Fossa measuring approximately 6.77cm x 1.72cm. Procedure This is a venous duplex using B-mode, color flow and spectral Doppler. Exam performed in department. The study was technically difficult. A preliminary report was called and/or faxed to Dr Mckeon office. VL/Venous Duplex US, Unilateral Interpretation Summary Deep veins of the right lower extremity are patent and compressible segmentally . There is no evidence of right lower extremity deep vein thrombosis. The right great saphenous vein appears patent a nd compressible segmentally. Nonvascularized area of mixed echogenicity noted throughout Rt Pop Fossa measur ing approximately 6.77cm x 1.72cm. Ordering Physician: David Chambers Referring Physician: David Chambers Performed By: Blayne Villatoro RVT
== END | disposition home or self-care (01) ==
LOC: CVS 12:52
PROVIDERS: PCP Family Medicine; Referring Provider Family Medicine; Visit Provider Family Medicine
DX: M79.604 Pain in right leg (principal)
CPT/HCPCS: 93971

== ENCOUNTER 2024-11-07 13:36 | Outpatient (RCR) | payer MEDICARE, SELFPAY ==
[2024-10-22 15:30] LABS: Prothrombin Time (Protime)PT. 42.8 SECONDS (11.7-14.9)
[2024-10-29 16:42] LABS: Mucous, Urine 0 SEEN /hpf (<or=2+)
[2024-10-29 18:00] LABS: Color, Urine Yellow (Yellow); Glucose, Dipstick Normal (Normal); Ketone-Dipstick Negative (Negative); Leukocyte Esterase-Dipstick 500 /ul (Negative); Nitrite-Dipstick Positive (Negative); Occult Blood-Urine 10 /ul (Negative); Protein-Dipstick 30 mg/dl (Negative); Specific Gravity, Urine 1.010 (1.002-1.030); Urine Bilirubin Dipstick Negative (Negative)
[2024-10-29 18:15] LABS: Prothrombin Time (Protime)PT. 19.1 SECONDS (11.7-14.9)
[2024-10-29 18:20] LABS: Red Blood Cells-Urine 0-5 SEEN /hpf (0-5); Squamous Epithelial Cells - UA 0-5 SEEN /hpf (5-10); Transitional Epithelial - Ur 0-5 SEEN /hpf (0-5)
[2024-11-07 15:28] LABS: Prothrombin Time (Protime)PT. 25.9 SECONDS (11.7-14.9)
== END 2024-11-18 23:59 ==
LOC: MFPLAB 13:36
PROVIDERS: Internal Medicine Cardiovascular Disease; PCP Family Medicine; Referring Provider Nurse Practitioner Gerontology; Visit Provider Nurse Practitioner Gerontology
DX: I48.91 Unspecified atrial fibrillation (principal); Z79.01 Long term (current) use of anticoagulants; N39.0 Urinary tract infection, site not specified
CPT/HCPCS: 36415; 81001; 85610; 87077; 87086; 87088; 87186

== ENCOUNTER 2024-12-18 11:37 | Outpatient (RCR) | payer MEDICARE, SELFPAY ==
[2024-11-19 16:33] LABS: Prothrombin Time (Protime)PT. 25.1 SECONDS (11.7-14.9)
[2024-12-12 18:38] LABS: Prothrombin Time (Protime)PT. 37.2 SECONDS (11.7-14.9)
[2024-12-15 12:18] LABS: Prothrombin Time (Protime)PT. 41.2 SECONDS (11.7-14.9)
[2024-12-18 13:28] LABS: Hematocrit 40.6 % (37-47); Hemoglobin 12.7 g/dL (12.0-15.0); Immature Granulocytes Count 0.030 X10^3/uL (0.0-0.0); Mean Corp Hgb Conc 31.3 g/dL (32-36); Mean Corpuscular Volume 88.1 fL (81-99); Mean Platelet Vol. 9.5 fl (6.2-12.0); NRBC Flagged by Analyzer 0 % (0-5); Platelet Count 269 K/mm3 (150-450); RBC Distribution Width CV 16.1 % (11.6-14.6); RBC Distribution Width SD 51.6 fl (35.1-43.9); Red Blood Count 4.61 M/mm3 (4.2-5.4); White Blood Count 6.9 K/mm3 (4.4-11.0)
[2024-12-18 13:38] LABS: Prothrombin Time (Protime)PT. 25.3 SECONDS (11.7-14.9)
== END 2024-12-18 18:00 | disposition home or self-care (01) ==
LOC: MTLAB 11:37
PROVIDERS: PCP Family Medicine; Referring Provider Nurse Practitioner Gerontology; Visit Provider Nurse Practitioner Gerontology
DX: I48.91 Unspecified atrial fibrillation (principal); Z79.01 Long term (current) use of anticoagulants; R23.3 Spontaneous ecchymoses
CPT/HCPCS: 36415; 85025; 85610

== ENCOUNTER → 2024-12-18 | Outpatient (CLI) | payer MEDICARE, SELFPAY | END | disposition home or self-care (01) | LOC: MTLAB 11:39 | PROVIDERS: PCP Family Medicine; Referring Provider Nurse Practitioner Gerontology; Visit Provider Nurse Practitioner Gerontology | DX: Z00.00 Encounter for general adult medical examination without abnormal findings (principal) ==

== ENCOUNTER 2025-01-08 13:10 | Outpatient (RCR) | payer MEDICARE, SELFPAY ==
[2024-12-26 12:27] LABS: Prothrombin Time (Protime)PT. 16.6 SECONDS (11.7-14.9)
[2025-01-01 15:28] LABS: Prothrombin Time (Protime)PT. 17.6 SECONDS (11.7-14.9)
[2025-01-08 14:51] LABS: Hematocrit 42.7 % (37-47); Hemoglobin 13.2 g/dL (12.0-15.0); Immature Granulocytes Count 0.020 X10^3/uL (0.0-0.0); Mean Corp Hgb Conc 30.9 g/dL (32-36); Mean Corpuscular Volume 89.3 fL (81-99); Mean Platelet Vol. 9.9 fl (6.2-12.0); NRBC Flagged by Analyzer 0 % (0-5); Platelet Count 289 K/mm3 (150-450); RBC Distribution Width CV 17.2 % (11.6-14.6); RBC Distribution Width SD 55.7 fl (35.1-43.9); Red Blood Count 4.78 M/mm3 (4.2-5.4); White Blood Count 6.5 K/mm3 (4.4-11.0)
[2025-01-08 15:14] LABS: AST(SGOT) 32 U/L (<=31); Alanine Aminotransfer ALT/SGPT 31 U/L (<=34); Albumin, Serum 3.8 g/dL (3.4-4.8); Alkaline Phosphatase 67 U/L (35-104); Anion Gap 8 (5-15); BUN 20 mg/dL (4-19); BUN/Creat Ratio 18.5 RATIO (10-20); Calcium,Total 9.2 mg/dL (7.6-11.0); Carbon Dioxide 27.6 mmol/L (21.0-32.0); Chloride 104 mmol/L (98-108); Globulin 3.0 g/dL (2.2-4.2); Glucose 97 mg/dL (70-99); Potassium 4.3 mmol/L (3.3-5.1)
[2025-01-08 15:15] LABS: Prothrombin Time (Protime)PT. 25.5 SECONDS (11.7-14.9)
== END 2025-01-17 18:00 | disposition home or self-care (01) ==
LOC: MTLAB 13:10
PROVIDERS: PCP Family Medicine; Referring Provider Nurse Practitioner Gerontology; Visit Provider Nurse Practitioner Gerontology
DX: I48.91 Unspecified atrial fibrillation (principal); Z79.01 Long term (current) use of anticoagulants
CPT/HCPCS: 36415; 80053; 85025; 85610

== ENCOUNTER → 2025-01-08 | Outpatient (CLI) | payer MEDICARE, SELFPAY | END | disposition home or self-care (01) | LOC: MTLAB 13:12 | PROVIDERS: PCP Family Medicine; Referring Provider Internal Medicine Rheumatology; Visit Provider Internal Medicine Rheumatology | DX: M06.09 Rheumatoid arthritis without rheumatoid factor, multiple sites (principal); M25.512 Pain in left shoulder; M79.7 Fibromyalgia ==

== ENCOUNTER 2025-02-09 14:24 | Outpatient (RCR) | payer MEDICARE, SELFPAY ==
[2025-01-23 12:40] LABS: Prothrombin Time (Protime)PT. 26.4 SECONDS (11.7-14.9)
[2025-02-09 17:55] LABS: Prothrombin Time (Protime)PT. 42.8 SECONDS (11.7-14.9)
== END 2025-02-09 18:00 | disposition home or self-care (01) ==
LOC: MTLAB 14:24
PROVIDERS: PCP Family Medicine; Referring Provider Nurse Practitioner Gerontology; Visit Provider Nurse Practitioner Gerontology
DX: I48.91 Unspecified atrial fibrillation (principal); Z79.01 Long term (current) use of anticoagulants
CPT/HCPCS: 36415; 85610

== ENCOUNTER 2025-02-16 16:07 | Inpatient (IN) | payer MEDICARE, SELFPAY ==
[2025-02-16] VITALS (15 sets, daily range): BP systolic 121–159; BP diastolic 62–87; PULSE 69–88; RESP 16–24; TEMP 36.6–38.5; O2SAT 74–96; BMI 57.8; BMI 54.8
--- NOTE | 2025-02-16 16:13 | EKG12_ITS ---
Test Reason : SOB Blood Pressure : */* mmHG Vent. Rate : 86 BPM Atrial Rate : 86 BPM P-R Int : 212 ms QRS Dur : 92 ms QT Int : 356 ms P-R-T Axes : 71 -14 27 degrees QTcB Int : 426 ms Unclear rhythm; likely Sinus Rhythm Inferior infarct , age undetermined Abnormal ECG Baseline artifact Confirmed by Attila Choudhary ([id number]), advertising editor BRANDEE RIVERA ([id number]) on 02/20/2025 6:38:13 AM Referred By: Confirmed By: Attila Choudhary
[2025-02-16] MEDS: 0.9% Normal Saline (1000mL) 1,000 ML 999 ML IV (16:32)
--- NOTE | 2025-02-16 16:42 | RAD_ITS ---
PROCEDURE: CHEST 1 VIEW (PORTABLE) 02/16/2025 REASON FOR EXAM: COUGH AND FEVER TECHNIQUE: Frontal view of the chest. COMPARISON: None. FINDINGS: Lungs/Pleura: No appreciable consolidation, pneumothorax or pleural effusion. Heart/Mediastinum: Cardiomegaly. Central vascular congestion. Bones/Soft tissues: Degenerative changes of the spine and visualized bilateral shoulders. Partially imaged right shoulder reverse arthroplasty metallic hardware. RAD/Chest 1 View (Portable) IMPRESSION: Cardiomegaly. No evidence of acute pulmonary disease. Reading Location: [id number]
[2025-02-16 16:54] LABS: Hematocrit 37.2 % (37-47); Hemoglobin 12.3 g/dL (12.0-15.0); Immature Granulocytes Count 0.020 X10^3/uL (0.0-0.0); Mean Corp Hgb Conc 33.1 g/dL (32-36); Mean Corpuscular Volume 84.5 fL (81-99); Mean Platelet Vol. 9.1 fl (6.2-12.0); NRBC Flagged by Analyzer 0 % (0-5); Platelet Count 201 K/mm3 (150-450); RBC Distribution Width CV 16.6 % (11.6-14.6); RBC Distribution Width SD 51.3 fl (35.1-43.9); Red Blood Count 4.40 M/mm3 (4.2-5.4); White Blood Count 5.9 K/mm3 (4.4-11.0)
[2025-02-16 17:14] LABS: AST(SGOT) 55 U/L (<=31); Alanine Aminotransfer ALT/SGPT 34 U/L (<=34); Albumin, Serum 3.6 g/dL (3.4-4.8); Alkaline Phosphatase 59 U/L (35-104); Anion Gap 10 (7-18); BUN 14 mg/dL (4-19); BUN/Creat Ratio 12.1 RATIO (10-20); Calcium,Total 8.1 mg/dL (7.6-11.0); Carbon Dioxide 27.3 mmol/L (20.0-29.0); Chloride 95 mmol/L (96-106); Estimated Creatinine Clearance 61.17 ml/min (50-250); Globulin 3.0 g/dL (2.2-4.2); Glucose 98 mg/dL (70-99); Potassium 3.4 mmol/L (3.5-5.1); Troponin T High Sensitivity 27 ng/L (<=14)
[2025-02-16 17:17] LABS: Partial Thromboplast Time 43.3 Seconds (24.1-36.2); Prothrombin Time (Protime)PT. 22.7 SECONDS (11.7-14.9)
[2025-02-16 17:44] LABS: Mucous, Urine 0 SEEN /hpf (<or=2+); Red Blood Cells-Urine 0 SEEN /hpf (0-5)
[2025-02-16 17:48] LABS: Color, Urine Straw (Yellow); Glucose, Dipstick Normal (Normal); Ketone-Dipstick Negative (Negative); Leukocyte Esterase-Dipstick Negative /ul (Negative); Nitrite-Dipstick Negative (Negative); Occult Blood-Urine 10 /ul (Negative); Protein-Dipstick Negative (Negative); Specific Gravity, Urine 1.010 (1.002-1.030); Urine Bilirubin Dipstick Negative (Negative)
[2025-02-16] MEDS: Albuterol 2.5 MG/3 ML VIAL.NEB. INHALATION (17:53)
--- NOTE | 2025-02-16 18:01 | ED.VIS.DYS ---
HPI History of Present Illness Chief Complaint: Shortness of Breath Informant: patient and EMS Narrative Narrative: 74-year-old female arriving via EMS from her primary care physician's office with chief complaint of hypoxia. Patient states that on she began to feel not well by she developed a slight cough. This past Sunday she developed a fever cough headache some shortness of breath. She has a history of asthma. She is on anticoagulation in the form of Coumadin for atrial fibrillation and prior DVT. Patient states she has been unable to get her temperature under 100 degrees. She notes that she is more short of breath and has a productive cough. She went to her primary care's office today who noted a pulse ox of around 88%. She does not wear oxygen at home. [facility] Medical History Primary osteoarthritis, left shoulder Left shoulder pain Falls Loss of hearing Wears glasses Wears dentures Wears partial dentures Cancer Post-menopausal Fibromyalgia Anxiety History of steroid therapy Thyroid disease Bladder disease Walker as ambulation aid Anemia High cholesterol Back pain Migraine headache History of ulceration History of IBS Non-smoker CPAP (continuous positive airway pressure) dependence Asthma Shortness of breath on exertion History of pain when walking History of edema History of echocardiogram History of stress test Cardiology follow-up encounter History of atrial fibrillation Contact with and (suspected) exposure to other viral communicable diseases History of DVT (deep vein thrombosis) SVT (supraventricular tachycardia) Essential hypertension Wound infection after surgery Depression Hypothyroidism Vitamin B12 deficiency Vitamin D deficiency Insomnia Allergic rhinitis GERD (gastroesophageal reflux disease) Morbid obesity Right rotator cuff tear Rheumatoid arthritis Home Medications ?Medication ?Instructions ?Recorded ?Last Taken ?Type fluticasone propionate 50 1 spray NASAL DAILY allergies 11/29/15 Unknown History mcg/actuation nasal spray,suspension loperamide 2 mg capsule 2 mg PO DAILY PRN Diarrhea 11/29/15 01/26/17 05:00 History 2 MG pantoprazole 40 mg tablet,delayed 40 mg PO DAILY reflux 11/29/15 06/03/24 History release albuterol sulfate 90 mcg/actuation 2 puff inhalation Q6H PRN PRN 12/12/16 Unknown History aerosol inhaler Asthma duloxetine 60 mg capsule,delayed 60 mg PO DAILY mental health 12/12/16 06/03/24 History release adalimumab 40 mg/0.8 mL 40 mg subcut FR infection 09/29/20 Unknown History subcutaneous syringe kit gabapentin 300 mg capsule 300 mg PO BID nerve pain 09/30/20 06/03/24 History multivitamin 1 tab PO DAILY vitamin 09/30/20 06/03/24 History prednisone 10 mg tablet 10 mg PO DAILY PRN RA flair 09/30/20 Unknown History montelukast 10 mg tablet 10 mg PO DAILY asthma 08/07/23 06/03/24 History solifenacin 10 mg tablet 10 mg PO DAILY rheumatiod 08/07/23 06/03/24 History tramadol 50 mg tablet 50 mg PO TID PRN PRN pain 08/07/23 06/03/24 History triamterene 37.5 1 cap PO DAILY BP 08/07/23 06/04/24 History mg-hydrochlorothiazide 25 mg capsule amitriptyline 150 mg tablet 150 mg PO QHS 04/30/24 06/03/24 History furosemide 20 mg tablet 20 mg PO QDAY PRN edema 04/30/24 Unknown History hydroxychloroquine 200 mg tablet 200 mg PO BID 04/30/24 06/03/24 History levothyroxine 200 mcg tablet 200 mcg PO QDAY 04/30/24 06/03/24 History amiodarone 200 mg tablet 200 mg PO DAILY #90 tabs 05/26/24 06/04/24 Rx warfarin 2 mg tablet 6 mg PO SUMOTUWESA 05/30/24 05/31/24 History metoprolol tartrate 50 mg tablet 50 mg PO BID #180 tabs 08/07/24 Unknown Rx semaglutide 0.25 mg or 0.5 mg (2 0.25 mg subcut QWEEK 11/10/24 Unknown History mg/1.5 mL) subcutaneous pen injector (Ozempic) warfarin 4 mg tablet 6 mg PO QDAY #135 TABLETS 12/10/24 Unknown Rx Allergy/AdvReac Type Severity Reaction Status Date / Time adhesive tape Allergy Rash Verified 02/16/25 16:13 codeine Allergy Hives Verified 02/16/25 16:13 Opioids - Morphine Analogues Allergy Hives Verified 02/16/25 16:13 fosinopril (From Monopril) AdvReac severe Verified 02/16/25 16:13 cough Family History Brother Colon cancer Lung cancer Mother Hypertension Thyroid disorder Father Ulcer Lung cancer Surgical History Hx of colonoscopy History of bilateral cataract extraction History of cholecystectomy Hx of gastric bypass Encounter for incision and drainage procedure Status post reverse total replacement of right shoulder S/P rotator cuff repair H/O: hysterectomy Social History Smoking Status: Never smoker second hand exposure: No alcohol intake: never substance use type: does not use caffeine: Yes seatbelt use: always ROS ROS ED ROS Narrative Generalized weakness Constitutional Constitutional ED: Reports chills and fever(s); Denies weight loss Eyes Eyes: Denies change in vision or diplopia ENT ENT ED: Reports sore throat; Denies ear pain or rhinorrhea Cardiovascular Cardiovascular: Denies chest pain, orthopnea, palpitations or racing heartbeat Respiratory/Chest Respiratory/Chest: Reports cough, dyspnea, dyspnea on exertion and sputum; Denies orthopnea Gastrointestinal Gastrointestinal: Reports nausea; Denies abdominal pain, diarrhea or vomiting Genitourinary Genitourinary ED: Denies dysuria, hematuria or urinary frequency Musculoskeletal Musculoskeletal: Denies arthralgias or myalgias Integumentary Denies abscess or rash Neurologic Neurologic: Reports headache(s); Denies weakness Psychiatric Psychiatric: Denies anxiety, depression, suicidal ideation or suicidal thoughts Endocrine Endocrinology: Denies polydipsia, polyphagia or polyuria Hematologic/Lymphatic Hematologic/Lymphatic: Reports easy bleeding and easy bruising Allergic/Immunologic Allergic/Immunologic ED: Denies mouth swelling, tongue swelling or urticaria EXAM Physical Exam Const Vital Signs: 02/16/25 16:07 02/16/25 16:08 02/16/25 16:13 Temperature 101.3 F H 101.3 F H Temperature Source Oral Oral Pulse Rate 78 88 Respiratory Rate 20 H 22 H Respiratory Effort Respiratory Depth Respiratory Pattern Blood Pressure 146/87 H 146/87 H Blood Pressure Mean 106 106 Pulse Ox 93 74 90 Oxygen Delivery Method Room Air Room Air Oxygen Flow Rate (L/min) 4 02/16/25 16:17 02/16/25 16:18 02/16/25 16:53 Temperature Temperature Source Pulse Rate 88 Respiratory Rate 16 Respiratory Effort Short of Breath Respiratory Depth Normal Respiratory Pattern Normal Normal Blood Pressure Blood Pressure Mean Pulse Ox 94 Oxygen Delivery Method Room Air Room Air Oxygen Flow Rate (L/min) 02/16/25 17:07 02/16/25 17:11 Temperature 101 F H Temperature Source Oral Pulse Rate 83 82 Respiratory Rate 24 H 24 H Respiratory Effort Respiratory Depth Respiratory Pattern Blood Pressure 159/74 H 156/74 H Blood Pressure Mean 102 101 Pulse Ox 93 91 Oxygen Delivery Method Nasal Cannula Nasal Cannula Oxygen Flow Rate (L/min) 2 2 Positive well nourished, well developed and obese General Appearance ED: well developed and NAD Nutritional Appearance: obese HEENT Reports normocephalic, head/scalp atraumatic and moist mucous membranes Eyes PERRL and EOMs intact bilaterally Neck no lymphadenopathy, supple and no JVD Resp Resp Narrative: Patient appears tachypneic at rest Auscultation: rhonchi lower bilaterally and wheezes expiratory wheezes and inspiratory wheezes Cardio regular rate, regular rhythm and no murmurs GI normal to inspection, nondistended, normoactive bowel sounds and non-tender Palpation: soft Back/Spine no CVA tenderness and normal ROM Extremity normal to inspection General Extremety ED: Negative for edema General Extremity: Negative for edema Neuro oriented x3 and CN's II-XII intact bilaterally Sensorium / Orientation: alert Motor Exam: strength 5/5 throughout Psych mental status grossly normal Mood & Affect: Negative for depressed or tearful Skin no rashes or lesions noted and no wounds MDM MDM MDM Narrative Medical decision making narrative: Differential diagnosis includes but not limited to sepsis pneumonia viral syndrome asthma exacerbation bronchitis bronchospasm pleural effusion acute kidney injury electrolyte dysfunction congestive heart failure My independent interpretation of the chest x-ray is no acute process. Patient is influenza A positive. White count 5.9 hemoglobin 12.3 platelet count of 201 INR is therapeutic at 2 lactic acid is 1 creatinine 1.19 sodium 132 potassium 3.4 troponin 27 my independent interpretation of the EKG is sinus rhythm with a first-degree AV block. Patient received breathing treatments Tylenol and Solu-Medrol. Blood cultures obtained. As this is the patient's fourth day of fever Tamiflu was not ordered. She continues to require supplemental oxygen. Plan of care is admission History & Record Review Discussion w/independent historian: EMS personnel, Patient, Family and Other (PCP) Additional record(s) reviewed:: Prior outpatient record, Prior ED visit and Prior labs Lab Data Attestation: I reviewed the patient's lab results. Labs: Laboratory Results - last 24 hr 02/16/25 16:30 WBC 5.9 RBC 4.40 Hgb 12.3 Hct 37.2 MCV 84.5 MCH 28.0 MCHC 33.1 RDW Std Deviation 51.3 H RDW Coeff of Rekha 16.6 H Plt Count 201 MPV 9.1 Immature Gran % (Auto) 0.300 Neut % (Auto) 57.4 Lymph % (Auto) 28.8 [place] % (Auto) 10.8 H Eos % (Auto) 2.0 Baso % (Auto) 0.7 Absolute Neuts (auto) 3.4 Absolute Lymphs (auto) 1.69 Nucleated RBC % 0 PT 22.7 H INR 2.0 APTT 43.3 H Sodium 132 L Potassium 3.4 L Chloride 95 L Carbon Dioxide 27.3 Anion Gap 10 BUN 14 Creatinine 1.19 Estim Creat Clear Calc 61.17 Est GFR (MDRD) Non-Af 49 L BUN/Creatinine Ratio 12.1 Glucose 98 Lactic Acid 1.0 Calcium 8.1 Total Bilirubin 0.25 AST 55 H ALT 34 Alkaline Phosphatase 59 Troponin T High Sens 27 H Total Protein 6.5 Albumin 3.6 Globulin 3.0 Albumin/Globulin Ratio 1.2 Radiography Diagnostic Testing: Clinical Impression(s) from Imaging Studies Chest X-Ray 02/16/25 16:42 IMPRESSION: Cardiomegaly. No evidence of acute pulmonary disease. Reading Location: [facility] EKG Initial EKG: Attestation: I personally reviewed and interpreted this EKG as follows: Comments: Sinus rhythm first-degree AV block ventricular rate of 86 bpm Management Discussion w/another healthcare provider: Hospitalist and PCP Discharge Plan Triage Chief Complaint: Shortness of Breath ED Provider: Dannie Dallas Dx/Rx/DC Orders Prescriptions: No Action multivitamin Tablet 1 tab PO DAILY prednisone 10 mg tablet 10 mg PO DAILY PRN (Reason: RA flair) amitriptyline 150 mg tablet 150 mg PO QHS hydroxychloroquine 200 mg tablet 200 mg PO BID furosemide 20 mg tablet 20 mg PO QDAY PRN (Reason: edema) Patient Comments: [NO ORIGINAL SIG] levothyroxine 200 mcg tablet 200 mcg PO QDAY Patient Comments: [NO ORIGINAL SIG] Ozempic 0.25 mg or 0.5 mg(2 mg/1.5 mL) pen injector 0.25 mg subcut QWEEK Rx Instructions: for 4 weeks loperamide 2 MG capsule 2 mg PO DAILY PRN (Reason: Diarrhea) Patient Comments: diarrhea pantoprazole 40 MG tablet 40 mg PO DAILY Patient Comments: acid reflux fluticasone propionate 1 SPRAY spray,suspension 1 spray NASAL DAILY Patient Comments: allergies albuterol sulfate 1 INHALER inhaler 2 puff INHALATION Q6H PRN PRN (Reason: Asthma) Patient Comments: cough, SOB duloxetine 60 MG capsule 60 mg PO DAILY Patient Comments: antidepressant adalimumab 40 mg/0.8 mL syringe kit 40 mg subcut FR gabapentin 300 mg capsule 300 mg PO BID tramadol 50 mg tablet 50 mg PO TID PRN PRN (Reason: pain) Patient Comments: for rheumatoid solifenacin 10 mg tablet 10 mg PO DAILY montelukast 10 mg tablet 10 mg PO DAILY triamterene-hydrochlorothiazid 37.5-25 mg capsule 1 cap PO DAILY warfarin 2 mg tablet 6 mg PO HNOG Protocol: Dose Management Condition: Sunday Dose/Route: 6 mg Instruction: 1 x 2 mg tablet, 1 x 4 mg tablet Condition: Sunday Dose/Route: 6 mg Instruction: 1 x 2 mg tablet, 1 x 4 mg tablet Condition: Sunday Dose/Route: 0 mg Instruction: 0 tablets Condition: Sunday Dose/Route: 6 mg Instruction: 1 x 2 mg tablet, 1 x 4 mg tablet Condition: Dose/Route: 8 mg Instruction: 2 x 4 mg tablets Condition: Sunday Dose/Route: 6 mg Instruction: 1 x 2 mg tablet, 1 x 4 mg tablet Condition: Sunday Dose/Route: 6 mg Instruction: 1 x 2 mg tablet, 1 x 4 mg tablet Protocol Text: Adjustment Start Date: Sunday02/10/25 INR Value: 4.4 INR Date: 02/09/25 Rx Instructions: Or as directed amiodarone 200 mg tablet 200 mg PO DAILY Qty: 90 3RF metoprolol tartrate 50 mg tablet 50 mg PO BID Qty: 180 3RF warfarin 4 mg tablet 6 mg PO QDAY Qty: 135 3RF Protocol: Dose Management Condition: Sunday Dose/Route: 6 mg Instruction: 1 x 2 mg tablet, 1 x 4 mg tablet Condition: Sunday Dose/Route: 6 mg Instruction: 1 x 2 mg tablet, 1 x 4 mg tablet Condition: Sunday Dose/Route: 0 mg Instruction: 0 tablets Condition: Sunday Dose/Route: 6 mg Instruction: 1 x 2 mg tablet, 1 x 4 mg tablet Condition: Dose/Route: 8 mg Instruction: 2 x 4 mg tablets Condition: Sunday Dose/Route: 6 mg Instruction: 1 x 2 mg tablet, 1 x 4 mg tablet Condition: Sunday Dose/Route: 6 mg Instruction: 1 x 2 mg tablet, 1 x 4 mg tablet Protocol Text: Adjustment Start Date: Sunday02/10/25 INR Value: 4.4 INR Date: 02/09/25 Rx Instructions: 6mg daily; or use as directed Primary Care Provider: David Chambers Referrals: David Chambers MD [Primary Care Provider, Family Practice] Print Language: Qatari
--- NOTE | 2025-02-16 18:09 | PCM.HP.STD ---
HPI - General General Date of Admission: 02/16/25 Date of Service: 02/16/25 Chief Complaint: Shortness of Breath HPI Narrative JORDAN BLUM, is a 74 F who presented to the Emergency Dept at [facility] on 02/16/25 with the chief complaint of shortness of breath. Pt has a PMH of asthma and EMMETT but is not tolerant of CPAP. She follows with pulmonary medicine through [facility]. She stated she began to not feel well on [place] and felt as if she was getting a cold. Since that time she has gotten progressively worse and had a fever all weekend and hasn't been able to get it down and keep it down under 100 degrees. She states that over the last few days she has become progressively more SOB and made an appt with her PCP today as she was not getting better. When she arrived there she was found to be hypoxic and referred to the ED for further evaluation. In addition to her fever and SOB, she has had wheezing, intermittent mild nausea, fatigue, decreased appetite, and myalgias. She is not O2 dependent at baseline. She does have obstructive sleep apnea but is not tolerant of CPAP and does not have a home unit. Vital signs on presentation showed temperature of 101.3, heart rate 78, respiratory 20, blood pressure was 146/87 and pulse ox was 74% on room air. She was placed on 2 L nasal cannula with improvement to her oxygen saturations to 93%. CBC shows a normal white count with no left shift. She does have a monocytosis with a monocyte count of 10.8%. INR is 2.0 and she is on Coumadin at baseline for history of atrial fibrillation. Chemistry panel showed mild hyponatremia the sodium of 132, mild hypokalemia potassium of 3.4. Renal function was normal. She has mild AST elevation at 55 with a normal baseline. Her initial troponin was 27 with a delta of 20. UA is unremarkable. Chest x-ray showed cardiomegaly without any evidence of acute pulmonary disease She is out of the window for Tamiflu. She was given acetaminophen, albuterol and DuoNeb treatment, 125 mg dose of full prednisolone and 1 L IV fluids the emergency department. With patient's comorbidities and current condition anticipate greater than 2 midnight length of stay. Patient will be admitted to medical surgical floor. [facility] Medical History Primary osteoarthritis, left shoulder Left shoulder pain Falls Loss of hearing Wears glasses Wears dentures Wears partial dentures Cancer Post-menopausal Fibromyalgia Anxiety History of steroid therapy Thyroid disease Bladder disease Walker as ambulation aid Anemia High cholesterol Back pain Migraine headache History of ulceration History of IBS Non-smoker CPAP (continuous positive airway pressure) dependence Asthma Shortness of breath on exertion History of pain when walking History of edema History of echocardiogram History of stress test Cardiology follow-up encounter History of atrial fibrillation Contact with and (suspected) exposure to other viral communicable diseases History of DVT (deep vein thrombosis) SVT (supraventricular tachycardia) Essential hypertension Wound infection after surgery Depression Hypothyroidism Vitamin B12 deficiency Vitamin D deficiency Insomnia Allergic rhinitis GERD (gastroesophageal reflux disease) Morbid obesity Right rotator cuff tear Rheumatoid arthritis Home Medications ?Medication ?Instructions ?Recorded ?Last Taken ?Type fluticasone propionate 50 1 spray NASAL DAILY allergies 11/29/15 Unknown History mcg/actuation nasal spray,suspension loperamide 2 mg capsule 2 mg PO DAILY PRN Diarrhea 11/29/15 01/26/17 05:00 History 2 MG pantoprazole 40 mg tablet,delayed 40 mg PO DAILY reflux 11/29/15 06/03/24 History release albuterol sulfate 90 mcg/actuation 2 puff inhalation Q6H PRN PRN 12/12/16 Unknown History aerosol inhaler Asthma duloxetine 60 mg capsule,delayed 60 mg PO DAILY mental health 12/12/16 06/03/24 History release adalimumab 40 mg/0.8 mL 40 mg subcut FR infection 09/29/20 Unknown History subcutaneous syringe kit gabapentin 300 mg capsule 300 mg PO BID nerve pain 09/30/20 06/03/24 History multivitamin 1 tab PO DAILY vitamin 09/30/20 06/03/24 History prednisone 10 mg tablet 10 mg PO DAILY PRN RA flair 09/30/20 Unknown History montelukast 10 mg tablet 10 mg PO DAILY asthma 08/07/23 06/03/24 History solifenacin 10 mg tablet 10 mg PO DAILY rheumatiod 08/07/23 06/03/24 History tramadol 50 mg tablet 50 mg PO TID PRN PRN pain 08/07/23 06/03/24 History triamterene 37.5 1 cap PO DAILY BP 08/07/23 06/04/24 History mg-hydrochlorothiazide 25 mg capsule amitriptyline 150 mg tablet 150 mg PO QHS ask pcp 04/30/24 06/03/24 History furosemide 20 mg tablet 20 mg PO QDAY PRN edema 04/30/24 Unknown History hydroxychloroquine 200 mg tablet 200 mg PO BID ask pcp 04/30/24 06/03/24 History levothyroxine 200 mcg tablet 200 mcg PO QDAY ask pcp 04/30/24 06/03/24 History amiodarone 200 mg tablet 200 mg PO DAILY ask pcp #90 tabs 05/26/24 06/04/24 Rx warfarin 2 mg tablet 6 mg PO .COMPLEX ask pcp 05/30/24 05/31/24 History metoprolol tartrate 50 mg tablet 50 mg PO BID ask pcp #180 tabs 08/07/24 Unknown Rx semaglutide 0.25 mg or 0.5 mg (2 0.25 mg subcut QWEEK ask pcp 11/10/24 Unknown History mg/1.5 mL) subcutaneous pen injector (IroFit) Held on 02/16/25. Instructions: Order Changed aripiprazole 2 mg tablet 2 mg PO DAILY ask pcp 02/16/25 Unknown History oxycodone 5 mg tablet 5 mg PO 4X/DAY ask pcp 02/16/25 Unknown History warfarin 4 mg tablet 8 mg PO .COMPLEX ask pcp 02/16/25 Unknown History Allergy/AdvReac Type Severity Reaction Status Date / Time adhesive tape Allergy Rash Verified 02/16/25 16:13 codeine Allergy Hives Verified 02/16/25 16:13 Opioids - Morphine Analogues Allergy Hives Verified 02/16/25 16:13 fosinopril (From Monopril) AdvReac severe Verified 02/16/25 16:13 cough Family History Brother Colon cancer Lung cancer Mother Hypertension Thyroid disorder Father Ulcer Lung cancer Surgical History Hx of colonoscopy History of bilateral cataract extraction History of cholecystectomy Hx of gastric bypass Encounter for incision and drainage procedure Status post reverse total replacement of right shoulder S/P rotator cuff repair H/O: hysterectomy Social History Smoking Status: Never smoker second hand exposure: No alcohol intake: never substance use type: does not use caffeine: Yes seatbelt use: always ROS Constitutional Constitutional: Reports chills, fatigue, fever(s), malaise and weakness; Denies anorexia, change in weight, night sweats or other Eyes Eyes: Denies blurry vision, change in eye color, change in vision, discharge from eye(s), double vision, erythema, eye pain, loss of vision or other ENT HEENT: Reports nasal congestion and post nasal drip; Denies abnormal hearing, dysphagia, ear pain, epistaxis, headache(s), hearing loss, nasal discharge, sinus pressure, sore throat or other Cardiovascular Cardiovascular: Reports dyspnea on exertion; Denies chest pain, claudication, edema, lightheadedness, orthopnea, palpitations, paroxysmal nocturnal dyspnea, rapid heart rate, syncope or other Respiratory/Chest Respiratory/Chest: Reports cough, dyspnea, shortness of breath at rest, shortness of breath with exertion and wheezing; Denies excessive phlegm production, hemoptysis, productive cough or other Gastrointestinal Gastrointestinal: Denies abdominal pain, coffee ground emesis, constipation, diarrhea, dyspepsia, hematemesis, hematochezia, loose stools, melena, nausea, vomiting or other Genitourinary Genitourinary: Denies burning urination, difficulty urinating, dysuria, hematuria, nocturia, urinary frequency, urinary hesitancy, urinary incontinence, urinary urgency or other Musculoskeletal Musculoskeletal: Reports myalgias; Denies arthralgias, back pain, joint pain, joint stiffness, joint swelling, neck pain or other Neurologic Neurologic: Denies abnormal gait, abnormal speech, confusion, disequilibrium, dizziness, focal weakness, headache(s), numbness, paresthesias, seizure-like activity, seizures, syncope, tingling, tremor(s) or other Psychiatric Psychiatric: Denies anxiety, depression, homicidal ideation, suicidal ideation or other Endocrine Endocrinology: Denies change in body appearance, cold intolerance, excessive sweating, heat intolerance, polydipsia, polyuria or other Hematologic/Lymphatic Hematologic/Lymphatic: Reports easy bleeding and easy bruising; Denies anemia, lymphadenopathy or other Allergic/Immunologic Allergic/Immunologic: Denies rhinitis, hives, eczemia, asthma or other Patient's Goals Of Care . What would you like to achieve or improve as a result of your hospital stay?: Feel better and go home Vital Signs Vital Signs Vital Signs: 02/16/25 16:07 02/16/25 16:08 02/16/25 16:13 Temperature 101.3 F H 101.3 F H Temperature Source Oral Oral Pulse Rate 78 88 Respiratory Rate 20 H 22 H Respiratory Effort Respiratory Depth Respiratory Pattern Blood Pressure 146/87 H 146/87 H Blood Pressure Mean 106 106 Pulse Ox 93 74 90 Oxygen Delivery Method Room Air Room Air Oxygen Flow Rate (L/min) 4 02/16/25 16:17 02/16/25 16:18 02/16/25 16:53 Temperature Temperature Source Pulse Rate 88 Respiratory Rate 16 Respiratory Effort Short of Breath Respiratory Depth Normal Respiratory Pattern Normal Normal Blood Pressure Blood Pressure Mean Pulse Ox 94 Oxygen Delivery Method Room Air Room Air Oxygen Flow Rate (L/min) 02/16/25 17:07 02/16/25 17:11 Temperature 101 F H Temperature Source Oral Pulse Rate 83 82 Respiratory Rate 24 H 24 H Respiratory Effort Respiratory Depth Respiratory Pattern Blood Pressure 159/74 H 156/74 H Blood Pressure Mean 102 101 Pulse Ox 93 91 Oxygen Delivery Method Nasal Cannula Nasal Cannula Oxygen Flow Rate (L/min) 2 2 Weight Weight: 148.1 kg Body Mass Index (BMI) 57.8 Physical Exam Const alert, oriented x3, no apparent distress and well nourished; Negative for average body habitus or healthy appearing Constitutional Narrative: Super morbidly obese, white female, lying comfortably in bed, breathing appears comfortable on 2 L nasal cannula, no signs of extremis, appears ill but not toxic General Appearance: cooperative HEENT normocephalic, head/scalp atraumatic and hearing grossly normal bilaterally HEENT Narrative: Mallampati 4, no thrush, mucous membranes are slightly dry Eyes EOMs intact bilaterally and conjunctivae normal Eyes Narrative: No scleral icterus Neck supple Neck Narrative: Neck is short and thick Resp no retractions, no use of accessory muscles and No clear to auscultation bilaterally Resp Narrative: Diffusely diminished with few scattered end expiratory wheezes, cough sounds rattly but not productive, mild tachypnea but no signs of respiratory distress or extremis on 2 L nasal cannula Auscultation: wheezes; Negative for crackles or rhonchi Cardio regular rate, regular rhythm, S1 normal heart sound, S2 normal heart sound, no murmurs, no rub, no gallops and no clicks GI normal to inspection, nondistended, normoactive bowel sounds, soft to palpation and non-tender GI Narrative: Large protuberant abdomen Extremity Extremity Narrative: Chronic bilateral lower extremity edema that is 1+ to 2+, no cyanosis or clubbing Skin Skin Narrative: Bilateral lower extremities are erythematous and consistent with chronic venous stasis, minimal serous drainage that is chronic per discussion with patient Neuro moves all extremities and no focal motor deficits Neuro Narrative: Generalized weakness but no focal deficits Speech: speech normal Psych affect normal Psych Narrative: Eye contact is good and patient interacts appropriately, again she appears ill but not toxic, very pleasant Results Lab / Micro Data 02/16/25 16:30 02/16/25 16:30 Labs: Laboratory Results - last 24 hr 02/16/25 16:30: WBC 5.9, RBC 4.40, Hgb 12.3, Hct 37.2, MCV 84.5, MCH 28.0, MCHC 33.1, RDW Std Deviation 51.3 H, RDW Coeff of Rekha 16.6 H, Plt Count 201, MPV 9.1, Immature Gran % (Auto) 0.300, Neut % (Auto) 57.4, Lymph % (Auto) 28.8, Blanco % (Auto) 10.8 H, Eos % (Auto) 2.0, Baso % (Auto) 0.7, Absolute Neuts (auto) 3.4, Absolute Lymphs (auto) 1.69, Nucleated RBC % 0, PT 22.7 H, INR 2.0, APTT 43.3 H, Sodium 132 L, Potassium 3.4 L, Chloride 95 L, Carbon Dioxide 27.3, Anion Gap 10, BUN 14, Creatinine 1.19, Estim Creat Clear Calc 61.17, Est GFR (MDRD) Non-Af 49 L, BUN/Creatinine Ratio 12.1, Glucose 98, Lactic Acid 1.0, Calcium 8.1, Total Bilirubin 0.25, AST 55 H, ALT 34, Alkaline Phosphatase 59, Troponin T High Sens 27 H, Total Protein 6.5, Albumin 3.6, Globulin 3.0, Albumin/Globulin Ratio 1.2 Micro: Microbiology 02/16/25 16:27 Mucosa - Nose SARS-CoV-2, Influenza & RSV (PCR) - Final Influenzae A Imaging Radiology Impression Chest X-Ray 02/16/25 16:42 IMPRESSION: Cardiomegaly. No evidence of acute pulmonary disease. Reading Location: [id number] Assessment & Plan Assessment/Plan (1) Hypoxia: (2) Acute exacerbation of COPD with asthma: (3) Influenza due to identified novel influenza A virus with pneumonia: (4) Acute hyponatremia: (5) Acute hypokalemia: (6) Elevated troponin: (7) Fever: PLAN: Plan Hypoxia with acute exacerbation of asthma secondary to acute viral pneumonia from influenza A - Patient on room air at baseline but 74% on presentation -Rapid COVID/flu/RSV is positive for influenza A - Currently requiring 2 L nasal cannula - Wean as able - Will need ambulatory pulse ox prior to discharge - Patient is out of the window for Tamiflu based on symptom duration at this time - Solu-Medrol 40 every 8 - Scheduled and as needed nebulizers - Incentive spirometer - Acapella 10 times every 2 hours while awake - Mucinex 1200 p.o. twice daily - Check sputum culture if patient able to produce - Doubt superimposed bacterial infection at this time given clinical scenario and current available studies but low threshold to initiate antibiotics if needing changes - Will order CPAP with 12 cm of water at at bedtime and with naps to hopefully avoid decompensation related to the acute on chronic issues - Pulmonary follow-up after discharge Hyponatremia - Mild -Hold home triamterene/HCTZ for now - No further workup at this time - Was given 1 L IV fluids in the emergency department - May be related to acute pulmonary infection as well - Repeat lab in a.m. if persistent or worsening may need further workup Elevated troponin - 27 with a delta of 20 - Suspect related to demand ischemia from hypoxia - With decrease no further workup at this time - No EKG changes and patient without chest pain Acute hypokalemia - P.o. potassium given for replacement - recheck in a.m. - Check a.m. magnesium level Paroxysmal atrial fibrillation - Continue home beta-doris - continue home amiodarone - Continue home Coumadin - INR is therapeutic at 2.0 - Repeat INR in a.m. Asthma/allergies - Hold home inhalers - Continue home nasal spray - Continue home Singulair Rheumatoid arthritis - Continue ongoing outpatient therapy after discharge - Hold home prednisone - Continue on Plaquenil Essential hypertension - Hold triamterene/hydrochlorothiazide due to hyponatremia - Continue metoprolol - Patient is on as needed furosemide at home will hold for now and diuresis on an as needed basis while hospitalized Hypothyroidism - Check a.m. TSH - Continue home levothyroxine Chronic diarrhea - Continue home outpatient follow-up with Dr. Perez - Has had recent scopes - Continue home as needed loperamide GERD - continue PPI Chronic pain/fibromyalgia/neuropathy - Continue home gabapentin - Continue home Ultram - Continue home amitriptyline Depression/anxiety - Continue home aripiprazole - Continue home Cymbalta History of gastric bypass surgery - Remote - Continue home vitamin supplements Super morbid obesity - BMI is 54.8 - Recommend weight loss - Complicates treatment, prognosis, outcomes DVT prophylaxis - INR is therapeutic at 2.0 next-continue home Coumadin - INR in a.m. CODE STATUS - DNR CCA okay for short-term intubation per discussion with patient at the time of admission. Patient indicated she is aware that not performing CPR would result in imminent and states that she does not want to have to put her family through that if she did have a cardiac arrest. She states she is okay for short-term intubation if there was a reversible condition. Charges/Coding Visit Charges Inpatient E&M: 33301 Init Hosp L3
[2025-02-16 19:04] LABS: Troponin T High Sens 2 HR 20 ng/L (<=14)
[2025-02-16 19:56] LABS: Squamous Epithelial Cells - UA 0-5 SEEN /hpf (5-10)
--- OUTSIDE RECORDS SUMMARY | 2025-02-16 20:17 | XMS RPT_ITS | CCD ---
Author Organization [facility]ini[facility] Care Team Providers Care Workforce Advisor Name Role Phone Dr. David Chambers Primary Care Provider Dr. David Chambers Referring Provider Dr. Blayne Estevez Attending Provider Dr. Blayne Estevez Referring Provider Dr. Blayne Estevez Other Provider Russ MOSS, CUSTOMER RELATIONS CONSULTANT-C Arely Attending Provider [phone] EZEQUIEL Trevino Attending Provider Reyes DICKSON, Dr. Hernandez Primary Care Provider Reyes DICKSON, Dr. Hernandez Attending Provider Reyes DICKSON, Dr. Hernandez Referring Provider Barrera MOSS-CLissette Attending Provider Barrera MOSS-CLissette Referring Provider Divya Root Attending Provider Dr. Dinah Fernandez MD Attending Provider Dr. Dinah Fernandez MD Referring Provider Ana MOSS-Matt Espana Attending Provider Dr. David Chambers MD Primary Care Provider Dr. David Chambers MD Attending Provider Dr. David Chambers MD Primary Care Provider Dr. David Chambers MD Referring Provider Dr. David Chambers MD Attending Provider Dr. Guille Perez DO Attending Provider Chris SOL Dr. Guille Other Provider [phone] Reyes DICKSON, Dr. Hernandez Primary Care Provider Griffin CUSTOMER RELATIONS CONSULTANT-C, Lissette Attending Provider [phone] Griffin CUSTOMER RELATIONS CONSULTANT-C, Lissette Referring Provider Reyes DICKSON, Dr. Hernandez Primary Care Provider Reyes DICKSON, Dr. Hernandez Referring Provider Griffin CUSTOMER RELATIONS CONSULTANT-C, Lissette Attending Provider Griffin CUSTOMER RELATIONS CONSULTANT-C, Lissette Referring Provider Reyes DICKSON, Dr. Hernandez Other Provider Reyes DICKSON, Dr. Hernandez Primary Care Provider Reyes DICKSON, Dr. Hernandez Referring Provider Barrera CUSTOMER RELATIONS CONSULTANT-C, Lissette Attending Provider Barrera CUSTOMER RELATIONS CONSULTANT-C, Lissette Referring Provider John DICKSON, Dr. James Attending Provider Reyes DICKSON, Dr. Hernandez Primary Care Provider John DICKSON, Dr. James Attending Provider Reyes DICKSON, Dr. Hernandez Attending Provider Reyes DICKSON, Dr. Hernandez Referring Provider Hero DICKSON, Dr. Leon Other Provider [phone] Reyes DICKSON, Dr. Hernandez Primary Care Provider Barrera CUSTOMER RELATIONS CONSULTANT-C, Lissette Attending Provider Barrera CUSTOMER RELATIONS CONSULTANT-C, Lissette Referring Provider Hero DICKSON, Dr. Leon Other Provider Emma DICKSON, Dr. Clarke Attending Provider Reyes DICKSON, Dr. Hernandez Primary Care Physician Reyes DICKSON, Dr. Hernandez Nurse Practitioner Barrera CUSTOMER RELATIONS CONSULTANT-C, Lissette Attending Physician Griffin CUSTOMER RELATIONS CONSULTANT-C, Lissette Referring Provider John DICKSON, Dr. James Attending Physician Reyes DICKSON, Dr. Hernandez Attending Physician Hero DICKSON, Dr. Leon Nurse Practitioner Emma DICKSON, Dr. Clarke Attending Physician Armaan Guallpa MD Attending Physician Barrera, Lissette Referring Unavailable Griffin, Lissette Attending Unavailable Chambers, David Primary Care Unavailable Griffin, Lissette Attending Unavailable Grififn, Lissette Referring Unavailable Chambers, David Primary Care Unavailable Griffin, Lissette Referring Unavailable Griffin, Lissette Attending Unavailable Chambers, David Primary Care Unavailable Chambers, David Consulting Unavailable Hero, Edward Consulting Unavailable Dinah Fernandez Attending Unavailable Dinah Fernandez Referring Unavailable Chamebrs, David Primary Care Unavailable Guille Perez Attending Unavailable Chambers, David Primary Care Unavailable Chambers, David Referring Unavailable Chambers, David Primary Care Unavailable Barrera, Lissette Attending Unavailable Barrera, Lissette Referring Unavailable Chambers, David Consulting Unavailable Hero, Edward Consulting Unavailable Chambers, David Primary Care Unavailable Griffin, Lissette Referring Unavailable Griffin, Lissette Attending Unavailable Chambers, David Consulting Unavailable Chambers, David Attending Unavailable Chambers, David Primary Care Unavailable Barrera, Lissette Referring Unavailable Barrera, Lissette Attending Unavailable Chambers, David Primary Care Unavailable Chambers, David Consulting Unavailable Hero, Edward Consulting Unavailable Chambers, David Attending Unavailable Chambers, David Primary Care Unavailable Chambers, David Referring Unavailable Griffin, Lissette Referring Unavailable Barrera, Lissette Attending Unavailable Chambers, David Primary Care Unavailable Barrera, Lissette Referring Unavailable Barrera, Lissette Attending Unavailable Chambers, David Primary Care Unavailable Chambers, David Consulting Unavailable Hero, Edward Consulting Unavailable Chambers, David Attending Unavailable Chambers, David Referring Unavailable Chambers, David Primary Care Unavailable Barrera, Lissette Attending Unavailable Chambers, David Primary Care Unavailable Barrera, Lissette Referring Unavailable Chambers, David Attending Unavailable Chambers, David Referring Unavailable Chambers, David Primary Care Unavailable Barrera, Lissette Referring Unavailable Barrera, Lissette Attending Unavailable Chambers, David Primary Care Unavailable Vince Carter Attending Unavailable Chambers, David Referring Unavailable Chambers, David Primary Care Unavailable Chambers, David Referring Unavailable Guille Perez Consulting Unavailable FriendGuille Attending Unavailable Chambers, David Primary Care Unavailable Barrera, Lissette Referring Unavailable Griffin, Lissette Attending Unavailable Chambers, David Primary Care Unavailable Lissette Griffin Attending Unavailable Chambers, David Primary Care Unavailable Lissette Griffin Referring Unavailable rAmaan Guallpa Attending Unavailable Reyes, David Referring Unavailable Reyes, David Primary Care Unavailable Divya Mariano Attending Unavailable Reyes, David Primary Care Unavailable Chambers, David Referring Unavailable Matt Perez Attending Unavailable Chambers, David Primary Care Unavailable Chambers, David Referring Unavailable Chambers, David Attending Unavailable Chambers, David Referring Unavailable Chambers, David Primary Care Unavailable Chambers, David Consulting Unavailable Chambers, David Primary Care Unavailable Lissette Griffin Attending Unavailable Lissette Griffin Referring Unavailable Allergies Allergy Classification Reported Allergen(s) Allergy Type Date of Onset Reaction(s) Facility (20 sources) Adhesive Tape; Translations: [adhesive tape] Allergy to substance 1 [facility] (20 sources) Codeine Drug Allergy 1 [facility] (11 sources) ALL PAIN MEDS Allergy to substance 1 [facility] (20 sources) Fosinopril Drug Allergy 2 severe cough [facility] (18 sources) Opioids - Morphine Analogues Allergy to substance 3 [facility] (1 source) Codeine Drug Allergy 5 [facility] (1 source) Fosinopril Drug Allergy 5 [facility] (1 source) Opioids - Morphine Analogues Drug allergy (disorder) 5 [facility] Medications Current Medications Medication Drug Class(es) Dates Sig (Normalized) Sig (Original) 0.8 ml adalimumab 50 mg/ml prefilled syringe (20 sources) Tumor Necrosis Factor Doris Start: 07-27-2017 End: 09-29-2020 Start: 01-25-2017 End: 01-31-2017 Adalimumab 40 MG/0.8 ML syri nge kit Discontinued 40 mg SQ EVERY WEEK January 25, 2017 1:00am January 31, 2017 1:36pm Start: 11-29-2015 End: 12-21-2016 inject 40 mg by subcutaneous injection every other week Adalimumab (Humira) 40 MG/0.8 ML Ml Discontinued 40 mg SQ Q14D November 29, 2015 12:00am December 21, 2016 8:22pm [id number] 200 actuat albuter ol 0.09 mg/actuat metered dose inhaler (20 sources) beta2-Adrenergic Agonist Start: 12-12-2016 Start: 12-12-2016 Albuterol Sulf ate 1 INHALER inhaler Active 2 NMA INHALATION EVERY 6 HOURS NEEDED as needed for Asthma December 12, 2016 12:00am Start: 12-12-2016 take 1 puff(s) by in halation every six hours as needed Albuterol Sulfate Active 2 PUFF INHALATION EVERY 6 HOURS NEEDED December 12, 2016 12:00am amiodarone hydrochloride 200 mg oral tablet (20 sources) Antiarrhythmic Start: 08-22-2023 End: 05-26-2024 take 1 tablet by mouth once daily Start: 08-08-2023 End: 08-22-2023 take 1 tablet by mouth twice daily, then take 1 tablet by mouth once daily Amiodarone 200 mg tablet Discontinued 200 mg PO DAILY August 22, 2023 10:20am August 22, 2023 2:28pm Take 1 tablet twice daily for 5 days then transition to 1 tablet daily amitriptyline hydrochloride 150 mg oral tablet (20 sources) Tricyclic Antidepressant Start: 04-30-2024 take 1 tablet b y mouth at bedtime Start: 09-29-2020 End: 04-30-2024 Amitriptyline 100 mg tablet Discontinued 150 mg PO AT BEDTIME September 29, 2020 12:00am April 30, 2024 11:21am sleep Start: 09-29-2020 take 100 mg by mouth at bedtim e Amitriptyline Active 100 MG PO AT BEDTIME September 29, 2020 12:00am DULoxetine 60 mg delayed release oral capsule (20 sources) Serotonin and Norepinephrine Reuptake Inhibitor Start: 12-12-2016 take 1 capsule by mouth once daily fluticasone propionate 0.05 mg/actuat metered dose nasal spray (20 sources) Corticosteroid Start: 11-29-2015 Start: 11-29-2015 Fluticasone Pr opionate Active 1 SPRAY NASAL DAILY November 29, 2015 12:00am furosemide 20 mg oral tablet (12 sources) Loop Diuretic Start: 04-30-2024 take 1 tablet by mouth once daily as needed for edema gabapentin 300 mg oral capsule (20 sources) Anti-epileptic Agent Start: 09-30-2020 take 1 capsule by mouth twice daily Start: 09-29-2020 End: 09-30-2020 take 1 capsule by mouth three times daily Gabapentin 300 mg capsule Discontinued 300 mg PO THREE TIMES A DAY September 29, 2020 8:00am September 30, 2020 10:49am nerve pain Start: 07-27-2017 End: 09-29-2020 take 1 capsule by mouth twice daily Gabapentin 300 MG capsule Discontinued 300 mg PO TWICE A DAY July 27, 2017 12:00am September 29, 2020 8:02am nerve pain hydroCHLOROthiazide 25 mg / triamterene 37.5 mg oral capsule (20 sources) Potassium-sparing Diuretic, Thiazide Diuretic Start: 08-07-2023 Start: 11-29-2015 End: 08-08-2023 Triamterene-Hydrochlorothiaz id 1 EACH tablet Discontinued 1 {tbl} PO DAILY November 29, 2015 12:00am August 08, 2023 8:01am Start: 11-29-2015 take 1 tablet by joseph th once daily Triamterene-Hydrochlorothiazid Active 1 TABLET PO DAILY November 29, 2015 12:00am hydroxychloroquine sulfate 200 mg oral tablet (20 sources) Antimalarial, Antirheumatic Agent Start: 04-30-2024 take 1 tablet by mouth twice daily Start: 09-30-2020 End: 08-22-2023 take 1 tablet by mouth twice daily Hydroxychloroquine 200 mg tablet Discontinued 200 mg PO TWICE A DAY September 30, 2020 12:00am August 22, 2023 2:28pm RA On Hold: Resume on 08/16/23. Follow up with your sales project manager prior to restarting levothyroxine sodium 0.2 mg oral tablet (20 sources) l-Thyroxine Start: 04-30-2024 take 1 tablet by joseph th once daily Start: 04-30-2024 End: 04-30-2024 Levothyroxine 200 mcg tablet Discontinued ug PO April 30, 2024 12:00am April 30, 2024 11:55am Start: 11-29-2015 End: 04-30-2024 take 1 tablet by mouth once daily Levothyroxine 175 MCG tablet Discontinued 175 ug PO DAILY November 29, 2015 12:00am April 30, 2024 11:19am thyroid loperamide hydrochloride 2 mg oral capsule (20 sources) Opioid Agonist Start: 11-29-2015 take 1 capsule by mouth once daily as needed for diarrhea montelukast 10 mg oral tablet (20 sources) Leukotriene Receptor Antagonist Start: 12-12-2016 End: 08-06-2023 take 1 tablet by mouth once daily Multivitamin preparation (17 sources) Start: 09-30-2020 take 1 tablet by mouth once daily Multivitamin Active 1 TABLET PO DAILY September 30, 2020 10:47am Start: 09-30-2020 take 1 tablet by joseph th once daily Multivitamin Active 1 TABLET PO DAILY September 29, 2020 11:00pm Start: 09-30-2020 take 1 tablet by joseph th once daily Multivitamin Active 1 TABLET PO DAILY September 30, 2020 12:00am Multivitamin tablet (12 sources) Start: 09-30-2020 Start: 09-30-2020 Multivitamin t ablet Active 1 {tbl} PO DAILY September 30, 2020 12:00am vitamin Complies with drug therapy Start: 09-30-2020 Multivitamin t ablet Active 1 {tbl} PO DAILY September 30, 2020 12:00am vitamin Start: 09-30-2020 Multivitamin t ablet Active 1 {tbl} PO DAILY September 30, 2020 12:00am pantoprazole 40 mg delayed release oral tablet (20 sources) Proton Pump Inhibitor Start: 11-29-2015 take 1 tablet by mouth once daily predniSONE 10 mg oral tablet (20 sources) Start: 09-30-2020 take 1 tablet by mouth once daily as needed Start: 12-12-2016 End: 12-21-2016 Prednisone 10 MG tablet Disc ontinued 10 mg PO NEEDED as needed for RHEUMATOID ARTHRITIS December 12, 2016 12:00am December 21, 2016 8:22pm 0.25 mg, 0.5 mg dose 1.5 ml semaglutide 1.34 mg/ml pen injector (2 sources) Start: 11-10-2024 solifenacin succinate 10 mg oral tablet (12 sources) Cholinergic Muscarinic Antagonist Start: 08-07-2023 take 1 tablet by mouth once daily traMADol hydrochloride 50 mg oral tablet (12 sources) Opioid Agonist Start: 08-07-2023 take 1 tablet by mouth three times daily as needed for pain warfarin sodium 2 mg oral tablet (20 sources) Vitamin K Antagonist Start: 05-30-2024 Warfarin 2 mg tablet Active 6 mg PO HONG May 30, 2024 12:00am Or as directed Please contact the information source for Protocol details. Start: 04-18-2024 End: 05-30-2024 Warfarin 2 mg tablet Discont inued 2 mg PO SUMOTUWEFRSA Protocol: Adjustment Start Date: Sunday05/23/24INR Value: 2.2INR Date: 05/22/24Recheck Date: 05/30/24 Condition: Sunday Dose/Route: 6 mg Instructions: 1 x 2 mg tablet, 1 x 4 mg tablet Condition: Sunday Dose/Route: 6 mg Instructions: 1 x 2 mg tablet, 1 x 4 mg tablet Condition: Sunday Dose/Route: 6 mg Instructions: 1 x 2 mg tablet, 1 x 4 mg tablet Condition: Sunday Dose/Route: 6 mg Instructions: 1 x 2 mg tablet, 1 x 4 mg tablet Condition: Dose/Route: 8 mg Instructions: 2 x 4 mg tablets Condition: Sunday Dose/Route: 8 mg Instructions: 2 x 4 mg tablets Condition: Sunday Dose/Route: 6 mg Instructions: 1 x 2 mg tablet, 1 x 4 mg tablet 90 May 02, 2024 4:39pm May 30, 2024 1:26pm Or as directed Please contact the information source for Protocol details. Start: 04-18-2024 End: 05-30-2024 Warfarin 4 mg tablet Discont inued 4 mg .ROUTE .COMPLEX Protocol: Adjustment Start Date: Sunday05/23/24INR Value: 2.2INR Date: 05/22/24Recheck Date: 05/30/24 Condition: Sunday Dose/Route: 6 mg Instructions: 1 x 2 mg tablet, 1 x 4 mg tablet Condition: Sunday Dose/Route: 6 mg Instructions: 1 x 2 mg tablet, 1 x 4 mg tablet Condition: Sunday Dose/Route: 6 mg Instructions: 1 x 2 mg tablet, 1 x 4 mg tablet Condition: Sunday Dose/Route: 6 mg Instructions: 1 x 2 mg tablet, 1 x 4 mg tablet Condition: Dose/Route: 8 mg Instructions: 2 x 4 mg tablets Condition: Sunday Dose/Route: 8 mg Instructions: 2 x 4 mg tablets Condition: Sunday Dose/Route: 6 mg Instructions: 1 x 2 mg tablet, 1 x 4 mg tablet 30 0 May 18, 2024 8:00am May 30, 2024 1:26pm 4 mg daily except 8 mg on , or as directed.; Please contact the information source for Protocol details. Start: 10-04-2023 End: 04-03-2024 Warfarin 4 mg tablet Discont inued 4 mg PO DAILY Protocol: Adjustment Start Date: Sunday03/26/24INR Value: 2.3INR Date: 03/26/24Recheck Date: 04/16/24 Condition: Sunday Dose/Route: 6 mg Instructions: 1 x 2 mg tablet, 1 x 4 mg tablet Condition: Sunday Dose/Route: 6 mg Instructions: 1 x 2 mg tablet, 1 x 4 mg tablet Condition: Sunday Dose/Route: 6 mg Instructions: 1 x 2 mg tablet, 1 x 4 mg tablet Condition: Sunday Dose/Route: 6 mg Instructions: 1 x 2 mg tablet, 1 x 4 mg tablet Condition: Dose/Route: 8 mg Instructions: 2 x 4 mg tablets Condition: Sunday Dose/Route: 6 mg Instructions: 1 x 2 mg tablet, 1 x 4 mg tablet Condition: Sunday Dose/Route: 6 mg Instructions: 1 x 2 mg tablet, 1 x 4 mg tablet 120 3 October 04, 2023 12:00am April 03, 2024 2:32pm Take 1 tablet Sun//Sun, and 1.5 tablets on /Sun/Sun/Sun, or as directed Please contact the information source for Protocol details. Start: 09-17-2023 End: 04-03-2024 take 1 tablet by mouth once daily Warfarin 2 mg tablet Discontinued 2 mg PO DAILY Protocol: Adjustment Start Date: Sunday03/26/24INR Value: 2.3INR Date: 03/26/24Recheck Date: 04/16/24 Condition: Sunday Dose/Route: 6 mg Instructions: 1 x 2 mg tablet, 1 x 4 mg tablet Condition: Sunday Dose/Route: 6 mg Instructions: 1 x 2 mg tablet, 1 x 4 mg tablet Condition: Sunday Dose/Route: 6 mg Instructions: 1 x 2 mg tablet, 1 x 4 mg tablet Condition: Sunday Dose/Route: 6 mg Instructions: 1 x 2 mg tablet, 1 x 4 mg tablet Condition: Dose/Route: 8 mg Instructions: 2 x 4 mg tablets Condition: Sunday Dose/Route: 6 mg Instructions: 1 x 2 mg tablet, 1 x 4 mg tablet Condition: Sunday Dose/Route: 6 mg Instructions: 1 x 2 mg tablet, 1 x 4 mg tablet 18 01September 17, 2023 12:00am April 03, 2024 2:32pm Please contact the information source for Protocol details. Completed/Discontinued Medications Medication Drug Class(es) Dates Sig (Normalized) Sig (Original) alendronic acid 70 mg oral tablet (20 sources) Bisphosphonate Start: 12-12-2016 End: 09-29-2020 take 1 tablet by mouth every week Alendronate 70 MG tablet Discontinued 70 mg PO Q7D@0700 December 12, 2016 12:00am September 29, 2020 8:02am amoxicillin 500 mg oral capsule (20 sources) Penicillin-class Antibacterial Start: 11-25-2020 End: 11-25-2020 Amoxicillin 500 mg capsule Discontinued 2000 mg PO .COMPLEX as needed for Take 2000mg 30 mins prior to any dental work. 4 November 25, 2020 12:00am November 25, 2020 10:52am 2,000 mg PO PRN; Take 2000mg 30 mins prior to any dental work as prophylactic d/t hx of total shoulder replacement. Start: 11-25-2020 End: 08-06-2023 Amoxicillin 500 mg capsule D iscontinued 500 mg PO .COMPLEX as needed for Take 2000mg within 1 hr of dental procedure. 4 November 25, 2020 12:00am August 06, 2023 12:51am History of total shoulder replacement Presence of unspecified artificial shoulder joint 500 mg PO PRN; Take 4 tabs or 2000mg within 1 hour of dental procedure, 1 time only. Start: 11-25-2020 End: 11-25-2020 Amoxicillin Discontinued 200 0 MG PO .COMPLEX November 25, 2020 12:00am November 25, 2020 10:52am 2,000 mg PO PRN; Take 2000mg 30 mins prior to any dental work as prophylactic d/t hx of total shoulder replacement. amoxicillin 875 mg / clavulanate 125 mg oral tablet (12 sources) Penicillin-class Antibacterial Start: 08-06-2023 End: 08-15-2023 Amoxicillin-Pot Clavulanate 875-125 mg tablet Discontinued 1 {tbl} PO TWICE A DAY August 06, 2023 12:00am August 15, 2023 2:16pm infection apixaban 5 mg oral tablet (20 sources) Factor Xa Inhibitor Start: 08-08-2023 End: 10-31-2023 take 1 tablet by mouth twice daily Apixaban (Eliquis) 5 mg tablet Discontinued 5 mg PO TWICE A DAY 180 3 August 16, 2023 4:19pm October 31, 2023 11:25am Start: 09-29-2020 End: 09-30-2020 take 1 tablet by mouth twice daily Apixaban (Eliquis) 5 mg tablet Discontinued 5 mg PO TWICE A DAY September 29, 2020 12:00am September 30, 2020 10:49am cholecalciferol 0.025 mg oral tablet (20 sources) Vitamin D Start: 11-29-2015 End: 09-29-2020 take 2 tablets by mouth once daily Cholecalciferol (Vitamin D3) 1,000 UNIT tablet Discontinued 2000 U PO DAILY November 29, 2015 12:00am September 29, 2020 8:02am Start: 11-29-2015 End: 09-29-2020 take 2000 [IU] by mouth once daily Cholecalciferol (Vitamin D3) Discontinued 2000 UNIT PO DAILY November 29, 2015 12:00am September 29, 2020 8:02am colestipol hydrochloride 1000 mg oral tablet (12 sources) Bile Acid Sequestrant Start: 04-03-2024 End: 11-10-2024 Colestipol 1 gram tablet Discontinued 1 g PO daily 60 2 April 03, 2024 1:00am November 10, 2024 11:08am On Hold: Ordered docusate sodium 100 mg oral capsule (20 sources) Start: 12-21-2016 End: 12-25-2016 take 1 capsule by mouth twice daily as needed for constipation Docusate Sodium (Colace) 100 MG capsule Discontinued 100 mg PO TWICE DAILY NEEDED as needed for Constipation 10 December 21, 2016 12:00am December 25, 2016 8:14pm levETIRAcetam 1000 mg tablet for oral suspension (20 sources) Start: 12-12-2016 End: 08-06-2023 take 1 tablet by mouth once daily Levetiracetam 1,000 MG tablet for suspension Discontinued 1000 mg PO DAILY December 12, 2016 12:00am August 06, 2023 12:49am methylPREDNISolone 4 mg oral tablet (20 sources) Corticosteroid Start: 08-20-2021 End: 08-06-2023 take 1 tablet by mouth once Methylprednisolone (Medrol (Jose Alfredo)) 4 mg tablets,dose pack Discontinued 0 PO per package directions 21 0 August 20, 2021 12:00am August 06, 2023 12:51am PO PER PKG DIR metoprolol tartrate 50 mg oral tablet (20 sources) beta-Adrenergic Doris Start: 08-08-2023 End: 08-07-2024 take 1 tablet by mouth twice daily Metoprolol Tartrate 50 mg tablet Discontinued 50 mg PO TWICE A DAY 180 3 October 31, 2023 11:25am August 07, 2024 7:55am Start: 12-28-2020 End: 08-08-2023 take 1 tablet by mouth twice daily Metoprolol Tartrate 100 mg tablet Discontinued 100 mg PO TWICE A DAY 180 3 October 19, 2021 8:33am August 08, 2023 7:54am Start: 09-30-2020 End: 12-28-2020 take 2 tablets by mouth twice daily Metoprolol Tartrate 50 mg tablet Discontinued 100 mg PO TWICE A DAY September 30, 2020 11:27am December 28, 2020 2:17pm Start: 09-30-2020 End: 12-28-2020 take 100 mg by mouth twice daily Metoprolol Tartrate Discontinued 100 MG PO TWICE A DAY September 30, 2020 11:27am December 28, 2020 2:17pm Start: 11-29-2015 End: 09-30-2020 take 1 tablet by mouth twice daily Metoprolol Tartrate 50 MG tablet Discontinued 50 mg PO TWICE A DAY November 29, 2015 12:00am September 30, 2020 11:27am nabumetone 500 mg oral tablet (20 sources) Nonsteroidal Anti-inflammatory Drug Start: 11-29-2015 End: 08-22-2023 take 1 tablet by mouth once daily Nabumetone 500 MG tablet Discontinued 500 mg PO DAILY November 29, 2015 12:00am August 22, 2023 2:29pm pain Start: 11-29-2015 take 1000 mg by mout h once daily Nabumetone Active 1000 MG PO DAILY November 29, 2015 12:00am vitamin b12 1 mg oral tablet (20 sources) Vitamin B12 Start: 09-30-2020 End: 08-06-2023 take 1 tablet by mouth once daily Cyanocobalamin (Vitamin B-12) 1,000 mcg tablet Discontinued 1000 ug PO DAILY September 30, 2020 12:00am August 06, 2023 12:51am Start: 11-29-2015 End: 09-29-2020 take 1 tablet under the tongue once daily Cyanocobalamin (Vitamin B-12) 1,000 MCG tablet, sublingual Discontinued 1000 ug SL DAILY November 29, 2015 12:00am September 29, 2020 8:02am Problems Active Problems Problem Classification Problem Date Documented Da te Episodic/Chronic Administrative/social admission (20 sources) Patient encounter status; Translations: [Persons encountering health services in other specified circumstances] 09-29-2020 Episodic Comment on above: 01/26/17 Asthma (20 sources) Asthma; Translations: [Unspecified asthma, uncomplicated] Chronic Cardiac dysrhythmias (20 sources) Supraventricular tachycardia; Translations: [Supraventricular tachycardia] Onset: 5 09-29-2020 Chronic Cardiac dysrhythmias (20 sources) Palpitations; Translations: [Palpitations] 08-07-2023 Episodic Coagulation and hemorrhagic disorders (1 source) Spontaneous ecchymoses; Translations: [Spontaneous ecchymoses] Onset: Episodic Complications of surgical procedures or medical care (20 sources) Postoperative wound infection; Translations: [Infection following a procedure, other surgical site, initial encounter] 09-29-2020 Episodic E Codes: Fall (12 sources) Fall; Translations: [Unspecified fall, initial encounter] 12-17-2023 Episodic Epilepsy; convulsions (20 sources) Seizure disorder; Translations: [Epilepsy, unspecified, not intractable, without status epilepticus] 09-30-2020 Chronic Esophageal disorders (20 sources) Gastroesophageal reflux disease; Translations: [Gastro-esophageal reflux disease without esophagitis] 08-01-2017 Chronic Comment on above: CONTROLLED WITH MED Essential hypertension (20 sources) Essential hypertension; Translations: [Essential (primary) hypertension] Onset: 5 09-29-2020 Chronic Comment on above: CONTROLLED WITH MED Immunizations and screening for infectious disease (20 sources) Contact with and (suspected) exposure to other viral communicable diseases; Translations: [Contact with or suspected exposure to other viral communicable disease] Episodic Mood disorders (20 sources) Depressive disorder; Translations: [Depression] 08-01-2017 Chronic Comment on above: ON MED Noninfectious gastroenteritis (20 sources) Chronic diarrhea; Translations: [Noninfective gastroenteritis and colitis, unspecified] Onset: 04-03-2024 Episodic Nonspecific chest pain (12 sources) Chest pain; Translations: [Chest pain, unspecified] 08-06-2023 Episodic Nutritional deficiencies (20 sources) Vitamin D deficiency; Translations: [Vitamin D deficiency, unspecified] 08-01-2017 Chronic Nutritional deficiencies (20 sources) Cobalamin deficiency; Translations: [Deficiency of other specified B group vitamins] 08-01-2017 Episodic Osteoarthritis (6 sources) Osteoarthritis of joint of left shoulder region; Translations: [Primary osteoarthritis, left shoulder] Chronic Other aftercare (12 sources) Long-term current use of anticoagulant; 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] 09-17-2023 Episodic Other aftercare (4 sources) Drug therapy finding; Translations: [Other assisted (current) drug therapy] 08-15-2023 Episodic Other aftercare (8 sources) Long-term current use of amiodarone; Translations: [Other assisted (current) drug therapy] 08-15-2023 Episodic Other aftercare (2 sources) penitentiary (current) use of anticoagulants; Translations: [penitentiary (current) use of anticoagulants] Onset: Episodic Other circulatory disease (12 sources) History of paroxysmal supraventricular tachycardia; Translations: [Personal history of other diseases of the circulatory system] 08-07-2023 Episodic Other connective tissue disease (20 sources) History of reverse prosthetic total arthroplasty of right shoulder; Translations: [Presence of right artificial shoulder joint] 09-29-2020 Chronic Comment on above: 12/19/16 Other connective tissue disease (20 sources) History of operative procedure on shoulder; Translations: [Presence of unspecified artificial shoulder joint] 11-25-2020 Chronic Other connective tissue disease (13 sources) Unspecified rotator cuff tear or rupture of right shoulder, not specified as traumatic; Translations: [Tear of right rotator cuff] 09-29-2020 Episodic Other connective tissue disease (16 sources) Tear of right rotator cuff; Translations: [Unspecified rotator cuff tear or rupture of right shoulder, not specified as traumatic] 09-29-2020 Episodic Other connective tissue disease (10 sources) Pain in calf; Translations: [Pain in right lower leg] 07-30-2023 Episodic Other connective tissue disease (2 sources) Pain of right calf; Translations: [Pain in right lower leg] 07-30-2023 Episodic Other connective tissue disease (1 source) Pain in right leg; Translations: [Pain in right leg] Onset: Episodic Other gastrointestinal disorders (20 sources) History of bypass of stomach; Translations: [Bariatric surgery status] 09-29-2020 Episodic Other gastrointestinal disorders (20 sources) Diarrhea; Translations: [Diarrhea, unspecified] 09-29-2020 Episodic Other gastrointestinal disorders (1 source) Diarrhea, unspecified; Translations: [Diarrhea, unspecified] Onset: Episodic Other injuries and conditions due to external causes (12 sources) Closed injury of head; Translations: [Unspecified injury of head, initial encounter] 12-17-2023 Episodic Other lower respiratory disease (20 sources) Dyspnea; Translations: [Dyspnea, unspecified] 06-06-2021 Episodic Other lower respiratory disease (4 sources) Shortness of breath; Translations: [Shortness of breath] Episodic Other lower respiratory disease (12 sources) Dyspnea on exertion; Translations: [Other forms of dyspnea] 08-15-2023 Episodic Other non-traumatic joint disorders (4 sources) Pain in left shoulder; Translations: [Left shoulder pain] 11-10-2024 Episodic Other nutritional; endocrine; and metabolic disorders (20 sources) Morbid obesity; Translations: [Morbid (severe) obesity due to excess calories] 06-06-2021 Chronic Other nutritional; endocrine; and metabolic disorders (8 sources) Morbid (severe) obesity due to excess calories; Translations: [Morbid obesity] Chronic Other screening for suspected conditions (not mental disorders or infectious disease) (13 sources) D-dimer above reference range; Translations: [Other specified abnormal findings of blood chemistry] Onset: 5 07-31-2023 Episodic Other upper respiratory disease (20 sources) Allergic rhinitis; Translations: [Allergic rhinitis, unspecified] 09-29-2020 Chronic Other upper respiratory disease (20 sources) Congestion of nasal sinus; Translations: [Nasal congestion] 08-20-2021 Episodic Other upper respiratory infections (20 sources) Upper respiratory infection; Translations: [Acute upper respiratory infection, unspecified] Episodic Phlebitis; thrombophlebitis and thromboembolism (20 sources) H/O: Deep vein thrombosis; Translations: [Personal history of other venous thrombosis and embolism] 09-29-2020 Episodic Comment on above: Lt LE Residual codes; unclassified (20 sources) Obstructive sleep apnea syndrome; Translations: [Obstructive sleep apnea (adult) (pediatric)] 06-06-2021 Chronic Residual codes; unclassified (8 sources) Obstructive sleep apnea (adult) (pediatric); Translations: [Obstructive sleep apnea (adult)(pediatric)] Chronic Residual codes; unclassified (20 sources) Insomnia; Translations: [Insomnia, unspecified] 08-01-2017 Episodic Rheumatoid arthritis and related disease (20 sources) Rheumatoid arthritis; Translations: [Rheumatoid arthritis, unspecified] Onset: 5 08-01-2017 Chronic Comment on above: ON MED Sprains and strains (20 sources) Strain of calf muscle; Translations: [Strain of other muscle(s) and tendon(s) at lower leg level, right leg, initial encounter] 08-07-2023 Episodic Superficial injury; contusion (12 sources) Contusion of right hip region; Translations: [Contusion of right hip, initial encounter] 12-17-2023 Episodic Thyroid disorders (20 sources) Hypothyroidism; Translations: [Hypothyroidism, unspecified] Onset: 5 08-01-2017 Chronic Comment on above: ON MED Unclassified (2 sources) M19.012 - Primary osteoarthritis, left shoulder Urinary tract infections (1 source) Urinary tract infection, site not specified; Translations: [Urinary tract infection, site not specified] Onset: 5 Episodic Past or Other Problems Problem Classification Problem Date Documented Da te Episodic/Chronic Residual codes; unclassified (1 source) Edema, unspecified; Translations: [Edema, unspecified] Onset: 02-07-2024 Episodic Results Test Name Value Interpretation Reference Range Facility Prothrombin Time w/INRon INR Coag (PPP) [Relative time] 1.4 {INR} Normal [facility] Comment on above: Performed By: #### L 400.0001, M100.2200 #### [facility] [address] [place], [address] PT Coag (PPP) [Time] 17.6 s High 11.7-14.9 [facility] Comment on above: Performed By: #### L 400.0001, M100.2200 #### [facility] [address] [place], [address] Prothrombin Time w/INRon INR Coag (PPP) [Relative time] 1.3 {INR} Normal [facility] Comment on above: Performed By: #### L 300.3900 #### [facility] [address] [place], [address] PT Coag (PPP) [Time] 16.6 s High 11.7-14.9 [facility] Comment on above: Performed By: #### L 300.3900 #### [facility] [address] [place], [address] CBC W/Diff, Automatedon 3 Absolute Lymph 2.61 X10 3/uL Normal 0.83-4.51 [facility] Comment on above: Order Comment: Comme nts: Do along with PT/INR this Performed By: #### L 300.3900 #### [facility] [address] [place], [address] Absolute Neut 3.4 X10 3/uL Normal 2.0-7.7 [facility] Comment on above: Order Comment: Comme nts: Do along with PT/INR this Performed By: #### L 300.3900 #### [facility] [address] [place], [address] Basophils/100 WBC (Bld) 1.3 % High 0-1 [facility] Comment on above: Order Comment: Comme nts: Do along with PT/INR this Performed By: #### L 300.3900 #### [facility] [address] [place], [address] Eosinophils/100 WBC (Bld) 3.8 % Normal 0-5 [facility] Comment on above: Order Comment: Comme nts: Do along with PT/INR this Performed By: #### L 300.3900 #### [facility] [address] [place], [address] Erythrocyte distribution width (RBC) [Ratio] 16.1 % High 11.6-14.6 [facility] Comment on above: Order Comment: Comme nts: Do along with PT/INR this Performed By: #### L 300.3900 #### [facility] [address] [place], [address] Hematocrit (Bld) [Volume fraction] 40.6 % Normal 37-47 [facility] Comment on above: Order Comment: Comme nts: Do along with PT/INR this Performed By: #### L 300.3900 #### [facility] [address] [place], [address] Hemoglobin (Bld) [Mass/Vol] 12.7 g/dL Normal 12.0-15.0 [facility] Comment on above: Order Comment: Comme nts: Do along with PT/INR this Performed By: #### L 300.3900 #### [facility] [address] [place], [address] IG% 0.400 Normal 0.0-0.9 [facility] Comment on above: Order Comment: Comme nts: Do along with PT/INR this Result Comment: IG% - Immature Granulocytes (promyelocytes, myelocytes and metamyelocytes) > 1% indicates that a LEFT SHIFT is Present. Performed By: #### L 300.3900 #### [facility] [address] [place], [address] Lymphocytes/100 WBC (Bld) 37.9 % Normal 19-41 [facility] Comment on above: Order Comment: Comme nts: Do along with PT/INR this Performed By: #### L 300.3900 #### [facility] [address] [place], [address] MCH (RBC) [Entitic mass] 27.5 pg Normal 27.0-32.0 [facility] Comment on above: Order Comment: Comme nts: Do along with PT/INR this Performed By: #### L 300.3900 #### [facility] [address] [place], [address] MCHC (RBC) [Mass/Vol] 31.3 g/dL Low 32-36 [facility] Comment on above: Order Comment: Comme nts: Do along with PT/INR this Performed By: #### L 300.3900 #### [facility] [address] [place], [address] MCV (RBC) [Entitic vol] 88.1 fL Normal 81-99 [facility] Comment on above: Order Comment: Comme nts: Do along with PT/INR this Performed By: #### L 300.3900 #### [facility] [address] [place], [address] Monocytes/100 WBC (Bld) 7.0 % Normal 0-10 [facility] Comment on above: Order Comment: Comme nts: Do along with PT/INR this Performed By: #### L 300.3900 #### [facility] [address] [place], [address] Neutrophils/100 WBC (Bld) 49.6 % Normal 47-70 [facility] Comment on above: Order Comment: Comme nts: Do along with PT/INR this Performed By: #### L 300.3900 #### [facility] [address] [place], [address] Nucleated RBC (Bld) [#/Vol] 0 10*3/uL Normal 0-5 [facility] Comment on above: Order Comment: Comme nts: Do along with PT/INR this Performed By: #### L 300.3900 #### [facility] [address] [place], [address] Platelet mean volume (Bld) [Entitic vol] 9.5 fL Normal 6.2-12.0 [facility] Comment on above: Order Comment: Comme nts: Do along with PT/INR this Performed By: #### L 300.3900 #### [facility] [address] [place], [address] Platelets (Bld) [#/Vol] 269 10*3/uL Normal 150-450 [facility] Comment on above: Order Comment: Comme nts: Do along with PT/INR this Performed By: #### L 300.3900 #### [facility] [address] [place], [address] RBC (Bld) [#/Vol] 4.61 10*6/uL Normal 4.2-5.4 [facility] Comment on above: Order Comment: Comme nts: Do along with PT/INR this Performed By: #### L 300.3900 #### [facility] [address] [place], [address] RDW SD 51.6 fl High 35.1-43.9 [facility] Comment on above: Order Comment: Comme nts: Do along with PT/INR this Performed By: #### L 300.3900 #### [facility] [address] [place], [address] WBC (Bld) [#/Vol] 6.9 10*3/uL Normal 4.4-11.0 [facility] Comment on above: Order Comment: Comme nts: Do along with PT/INR this Performed By: #### L 300.3900 #### [facility] [address] [place], [address] Prothrombin Time w/INRon INR Coag (PPP) [Relative time] 2.3 {INR} Normal [facility] Comment on above: Order Comment: Comme nts: Do along with CBCD this Performed By: #### L 300.3900 #### [facility] [address] [place], [address] PT Coag (PPP) [Time] 25.3 s High 11.7-14.9 [facility] Comment on above: Order Comment: Comme nts: Do along with CBCD this Performed By: #### L 300.3900 #### [facility] [address] [place], [address] Prothrombin Time w/INRon INR Coag (PPP) [Relative time] 4.2 {INR} Invalid Interpretation Code [facility] Comment on above: Result Comment: CRIT ICAL VALUE CALLED TO VENESSA ADEN ([facility]) 12/15/24 1222 Paul Kim. RESULTS READ BACK BY SAME. Performed By: #### L 9200.0000 #### [facility] [address] [place], [address] PT Coag (PPP) [Time] 41.2 s High 11.7-14.9 [facility] Comment on above: Performed By: #### L 9200.0000 #### [facility] [address] [place], [address] Prothrombin Time w/INRon INR Coag (PPP) [Relative time] 3.7 {INR} Normal [facility] Comment on above: Performed By: #### L 300.3900 #### [facility] [address] [place], [address] PT Coag (PPP) [Time] 37.2 s High 11.7-14.9 [facility] Comment on above: Performed By: #### L 300.3900 #### [facility] [address] [place], [place], [address] International normalized rat io (INR) calculationOrdered By: Lissette Griffin on 11-19-2024 INR Coag (Bld) [Relative time] 2.2 {INR} [facility] Prothrombin Time w/INRon INR Coag (PPP) [Relative time] 2.2 {INR} Normal [facility] Comment on above: Performed By: #### L 300.3900 #### [facility] [address] [place], [place], [id number] PT Coag (PPP) [Time] 25.1 s High 11.7-14.9 [facility] Comment on above: Performed By: #### L 300.3900 #### [facility] [address] [place], [place], [id number] Prothrombin timeOrdered By: Lissette Griffin on 11-19-2024 PT Coag (PPP) [Time] 25.1 s High 11.7-14.9 [facility] Orthopedic Visit Reporton Orthopedic Visit Report [facility] [address] [place] [address] [address] [place], [place] [address] OFFICE VISIT Date of Service: 11/10/24 MR#: [id number] Acct: [id number] Name: IRIS BLUM Rep #: [id number] 2 : 1950 Provider: Dr. Armaan edwards MD Age/Sex: 74/F Location: [facility] [place] Status: Signed Intake Vital Signs 06/04/24 07:06 11/10/24 11:04 Height 5 ft 3 in 5 ft 3 in Weight: 307 lb BMI 54.3 Intake Visit Reasons: LEFT SHOULDER Chief Complaint: Left Shoulder Pain Is patient in pain?: Yes Pain scale (1-10): 8 Allergies adhesive tape Allergy (Verified 11/10/24 11:05) Rash codeine Allergy (Verified 11/10/24 11:05) Hives Opioids - Morphine Analogues Allergy (Verified 11/10/24 11:05) Hives fosinopril (From Monopril) Adverse Reaction (Verified 11/10/24 11:05) severe cough Medications ???Medication ???Instructions ???Recorded ???Confirmed ???Type fluticasone propionate 50 1 spray NASAL DAILY allergies 11/1911/10/24 History mcg/actuation nasal spray,suspension loperamide 2 mg capsule 2 mg PO DAILY PRN Diarrhea 6 11/10/24 History pantoprazole 40 mg tablet,delayed 40 mg PO DAILY reflux 11/29/15 History release albuterol sulfate 90 mcg/actuation 2 puff inhalation Q6H PRN PRN 11/10/24 History aerosol inhaler Asthma duloxetine 60 mg capsule,delayed 60 mg PO DAILY mental health 12/1211/10/24 History release adalimumab 40 mg/0.8 mL 40 mg subcut FR infection 09/29/20 11/10/24 History subcutaneous syringe kit gabapentin 300 mg capsule 300 mg PO BID nerve pain 09/30/20 11/10/24 History multivitamin 1 tab PO DAILY vitamin 09/30/20 History prednisone 10 mg tablet 10 mg PO DAILY PRN RA flair 11/10/24 History montelukast 10 mg tablet 10 mg PO DAILY asthma 08/07/23 History solifenacin 10 mg tablet 10 mg PO DAILY rheumatiod 08/07/23 11/10/24 History tramadol 50 mg tablet 50 mg PO TID PRN PRN pain 08/07/23 11/10/24 History triamterene 37.5 1 cap PO DAILY BP 08/07/23 5 History mg-hydrochlorothiazide 25 mg capsule amitriptyline 150 mg tablet 150 mg PO QHS 04/30/24 11/10/24 Hi story furosemide 20 mg tablet 20 mg PO QDAY PRN edema 04/30/24 0 11/10/24 History hydroxychloroquine 200 mg tablet 200 mg PO BID 04/30/24 11/10/24 Hi story levothyroxine 200 mcg tablet 200 mcg PO QDAY 04/30/24 11/10/24 History amiodarone 200 mg tablet 200 mg PO DAILY #90 tabs 05/26/24 11/10/24 Rx warfarin 2 mg tablet 6 mg PO SUMOTUWESA 05/30/24 History warfarin 4 mg tablet 8 mg PO THFR 05/30/24 11/10/24 His tory metoprolol tartrate 50 mg tablet 50 mg PO BID #180 tabs 08/07/24 Rx semaglutide 0.25 mg or 0.5 mg (2 0.25 mg subcut QWEEK 11/10/2410/21 History mg/1.5 mL) subcutaneous pen injector (Ozempic) Have you fallen in the past year?: Yes (4 times) [facility] Medical History (Updated 11/10/24 @ 11:52 by Armaan Guallpa MD) Primary osteoarthritis, left shoulder Left shoulder pain Falls Loss of hearing Wears glasses Wears dentures Wears partial dentures Cancer Post-menopausal Fibromyalgia Anxiety History of steroid therapy Thyroid disease Bladder disease Walker as ambulation aid Anemia High cholesterol Back pain Migraine headache History of ulceration History of IBS Non-smoker CPAP (continuous positive airway pressure) dependence Asthma Shortness of breath on exertion History of pain when walking History of edema History of echocardiogram History of stress test Cardiology follow-up encounter History of atrial fibrillation Contact with and (suspected) exposure to other viral communicable diseases History of DVT (deep vein thrombosis) SVT (supraventricular tachycardia) Essential hypertension Wound infection after surgery Depression Hypothyroidism Vitamin B12 deficiency Vitamin D deficiency Insomnia Allergic rhinitis GERD (gastroesophageal reflux disease) Morbid obesity Right rotator cuff tear Rheumatoid arthritis Surgical History Hx of colonoscopy History of bilateral cataract extraction History of cholecystectomy Hx of gastric bypass Encounter for incision and drainage procedure Status post reverse total replacement of right shoulder S/P rotator cuff repair H/O: hysterectomy Family History Brother Colon cancer Lung cancer Mother Hypertension Thyroid disorder Father Ulcer Lung cancer Social History Smoking Status: Never smoker second hand exposure: No alcohol intake: never substance use type: does not use caffeine: Yes seatbelt use: always HPI L (more content not included)... Normal [facility] International normalized rat io (INR) calculationOrdered By: Lissette Griffin on 11-07-2024 INR Coag (Bld) [Relative time] 2.3 {INR} [facility] Prothrombin Time w/INRon INR Coag (PPP) [Relative time] 2.3 {INR} Normal [facility] Comment on above: Performed By: #### L 300.3900 #### [facility] [address] [place], [place], [id number] PT Coag (PPP) [Time] 25.9 s High 11.7-14.9 [facility] Comment on above: Performed By: #### L 300.3900 #### [facility] [address] [place], [address] Prothrombin timeOrdered By: Lissette Griffin on 11-07-2024 PT Coag (PPP) [Time] 25.9 s High 11.7-14.9 [facility] Urine Cultureon 11-01-2024 [facility] Urine Culture Escherichia coli [place] Count >100,000 Klebsiella pneumoniae sp pneum Klebsiella pneumoniae sp pneum Escherichia coli: REACTION Ampicillin Islt TERESITA <=2 S Ampicillin+Sulbac Islt TERESITA <=2 Cefepime Islt TERESITA <=0.12 S cefTRIAXone Islt TERESITA <=0.25 S Ciprofloxacin Islt TERESITA <=0.06 S B-Lactamase Extended Susc Islt NEG Gentamicin Islt TERESITA <=1 S levoFLOXacin Islt TERESITA <=0.12 S Meropenem Islt TERESITA <=0.25 S Nitrofurantoin Islt TERESITA <=16 S Pip+Tazo Islt TERESITA <=4 S TMP SMX Islt TERESITA <=20 S Klebsiella pneumoniae sp pneum: REACTION Ampicillin Islt TERESITA R Ampicillin+Sulbac Islt TERESITA <=2 Cefepime Islt TERESITA <=0.12 S cefTRIAXone Islt TERESITA <=0.25 S Ciprofloxacin Islt TERESITA <=0.06 S B-Lactamase Extended Susc Islt NEG Gentamicin Islt TERESITA <=1 S levoFLOXacin Islt TERESITA <=0.12 S Meropenem Islt TERESITA <=0.25 S Nitrofurantoin Islt TERESITA 64 I Pip+Tazo Islt TERESITA <=4 S TMP SMX Islt TERESITA <=20 S Normal [facility] Comment on above: Performed By: #### L 400.0001, M100.2200 #### [facility] [address] [place], [place], [id number] Bilirubin Test strip Ql (U)O rdered By: Lissette Griffin on 10-29-2024 Bilirubin Ql (U) Negative Negative [facility] Ketones Test strip Ql (U)Ord ered By: Lissette Griffin on 10-29-2024 Ketones Ql (U) Negative Negative [facility] Microscopic analysis of urin e for red blood cells (RBC)Ordered By: Lissette Griffin on 10-29-2024 Microscopic analysis of urine for red blood cells (RBC) 0-5 SEEN /hpf 0-5 [facility] Mucus LM Ql (Urine sed)Order ed By: Lissette Griffin on 10-29-2024 Mucus Ql (Urine sed) 0 SEEN /hpf [facility] Nitrite Test strip Ql (U)Ord ered By: Lissette Griffin on 10-29-2024 Nitrite Ql (U) Positive High Negative [facility] Protein Test strip Ql (U)Ord ered By: Lissette Griffin on 10-29-2024 Protein Ql (U) 30 mg/dl High Negative [facility] Prothrombin Time w/INRon INR Coag (PPP) [Relative time] 1.6 {INR} Normal [facility] Comment on above: Performed By: #### L 300.3900 #### [facility] [address] [place], [place], [id number] PT Coag (PPP) [Time] 19.1 s High 11.7-14.9 [facility] Comment on above: Performed By: #### L 300.3900 #### [facility] [address] [place], [address] Squamous epithelial cells de tection in urine sediment by light microscopyOrdered By: Lissette Griffin on 10-29-2024 Epithelial cells.squamous LM Ql (Urine sed) 0-5 SEEN /hpf 5-10 [facility] Transitional cells detection in urine sediment by light microscopyOrdered By: Lissette Griffin on 10-29-2024 Transitional cells LM Ql (Urine sed) 0-5 SEEN /hpf 0-5 [facility] Urinalysis, Completeon 10-29 BACTERIA 4+ /hpf Normal None Seen [facility] Comment on above: Order Comment: Urine , Random Performed By: #### L 400.0001, M100.0 #### [facility] [address] [place], [address] EPI,RENAL 0-5 SEEN Normal 0-5 [facility] Comment on above: Order Comment: Urine , Random Performed By: #### L 400.0001, M1.0 #### [facility] [address] [place], [address] EPI,SQUAMOUS 0-5 SEEN Normal 5-10 [facility] Comment on above: Order Comment: Urine , Random Performed By: #### L 400.0001, M100.0 #### [facility] [address] [place], [address] EPI,TRANSITION 0-5 SEEN Normal 0-5 [facility] Comment on above: Order Comment: Urine , Random Performed By: #### L 400.0001, M100.0 #### [facility] [address] [place], [address] RBC 0-5 SEEN Normal 0-5 [facility] Comment on above: Order Comment: Urine , Random Performed By: #### L 400.0001, M100.0 #### [facility] [address] [place], [address] WBC 25-50 SEEN Normal 0-5 [facility] Comment on above: Order Comment: Urine , Random Performed By: #### L 400.0001, M100.0 #### [facility] [address] [place], [address] Mucus Ql (Urine sed) 0 SEEN Normal [facility] Comment on above: Order Comment: Urine , Random Performed By: #### L 400.0001, M100.2200 #### [facility] [address] [place], [address] Urine clarityOrdered By: Teddy Griffin on 10-29-2024 Clarity (U) Cloudy Clear [facility] Urine color determinationOrd ered By: Lissette Griffin on 10-29-2024 Color (U) Yellow Yellow [facility] Urine cultureOrdered By: Teddy Griffin on 10-29-2024 Bacteria identified Cx Nom (U) Escherichia coli Abnormal [facility] Bacteria identified Cx Nom (U) Klebsiella pneumoniae sp pneum Abnormal [facility] Urine glucose detectionOrder ed By: Lissette Griffin on 10-29-2024 Glucose Ql (U) Normal mg/dl Normal [facility] Urine leukocyte esterase det ection by dipstickOrdered By: Lissette Griffin on 10-29-2024 Leukocyte esterase Test strip Ql (U) 500 /ul High Negative [facility] Urine pHOrdered By: Lissette byrnes on 10-29-2024 pH (U) 7.0 [pH] 5.0 - 8.0 [facility] Urine sediment bacteria coun t by microscopy (number/high power field)Ordered By: Lissette Griffin on 10-29-2024 Bacteria LM.HPF (Urine sed) [#/Area] 4 /[HPF] None Seen [facility] Urine sediment renal epithel ial cell count by microscopy (number/high power field)Ordered By: Lissette Griffin on 10-29-2024 Epithelial cells.renal LM.HPF (Urine sed) [#/Area] 0 /[HPF] 0-5 [facility] Urine specific gravity measu rementOrdered By: Lissette Griffin on 10-29-2024 Specific gravity (U) [Rel density] 1.010 1.002-1.03 0 [facility] Urine urobilinogen measureme ntOrdered By: Lissette Griffin on 10-29-2024 Urobilinogen Ql (U) Normal mg/dl Normal [facility] White blood cell countOrdere d By: Lissette Griffin on 10-29-2024 White blood cell count 25-50 SEEN /hpf 0-5 [facility] Venous duplex ultrasound rep ortOrdered By: Vince Carter on 10-27-2024 US Vein [facility] Cardi[facility] Services [address] [place] [address] Venous Duplex US, Unilateral 10/22/24 1312 MR#: [id number] Acct: [id number] Name: IRIS BLUM Rep #:[id number] : 1950 74 From: Vince Robert Attending Dr: Dr. David Chambers MD Status: REG CLI Ordering Dr: David Chambers MD Date: Location: CVS Sex: F C Admitted: Reason For Study Reason For Study: RLE Pain RIGHT GSV is normal. CFV is compressible, spontaneous, phasic, competent and demonstrates normal augmentation. FV is compressible, spontaneous, phasic, competent and demonstrates normal augmentation. POP V is compressible, spontaneous, phasic, competent and demonstrates normal augmentation. T/P Trunk is compressible. PTV is compressible. RT PerV is compressible. Nonvascularized area of mixed echogenicity noted throughout Rt Pop Fossa measuring approximately 6.77cm x 1.72cm. Procedure This is a venous duplex using B-mode, color flow and spectral Doppler. Exam performed in department. The study was technically difficult. A preliminary report was called and/or faxed to Dr Chamberss office. VL/Venous Duplex US, Unilateral Interpretation Summary Deep veins of the right lower extremity are patent and compressible segmentally.There is no evidence of right lower extremity deep vein thrombosis. The right great saphenous vein appears patent and compressible segmentally. Nonvascularized area of mixed echogenicity noted throughout Rt Pop Fossa measuring approximately 6.77cm x 1.72cm. Ordering Physician: David Chambers Referring Physician: David Chambers Performed By: Blayne Villatoro, RVT 10/27/24 1235 Date _ Vince Carter MD CC: Dr. David Chambers MD ~ Date Dictated: 10/22/24 1312 Date Transcribed: 10/27/24 1235 Sorter/Assay Tech: Signed [facility] Work Phone: International normalized rat io (INR) calculationOrdered By: Lissette Griffin on 10-22-2024 INR Coag (Bld) [Relative time] 4.4 {INR} High [facility] Comment on above: CRITICAL VALUE GALSS D TO KATHY HAYES ([facility]) 10/22/24 1544 Monica Tan.RESULTS READ BACK BY SAME. CRITICAL VALUE CALLED TO ELOY SANCHEZ ([facility])10/22/24 1553 Monica Tan.RESULTS READ BACK BY SAME. Previous reported result: 4.4 Edited by: AMANDA on 10/22/24:1557 AMENDED REPORT 10/22/24 155 INR previously reported as: 4.4 *H CRITICAL VALUE CALLED TO AKTHY HAYES10/22/24 1544 Monica aTn.RESULTS READ BACK BY SAME. Prothrombin Time w/INRon INR Coag (PPP) [Relative time] 4.4 {INR} Invalid Interpretation Code [facility] Comment on above: Result Comment: CRIT ICAL VALUE CALLED TO KATHY HAYES ([facility]) 10/22/24 1544 Monica Tan. RESULTS READ BACK BY SAME. CRITICAL VALUE CALLED TO ELOY SANCHEZ ([facility]) 10/22/24 1553 Monica Tan. RESULTS READ BACK BY SAME. AMENDED REPORT 10/22/24 1557 INR previously reported as: 4.4 *H CRITICAL VALUE CALLED TO KATHY HAYES 10/22/24 1544 Monica Tan. RESULTS READ BACK BY SAME. Performed By: #### L 300.4677 #### [facility] [address] [place], [address] Prothrombin timeOrdered By: Lissette Griffin on 10-22-2024 PT Coag (PPP) [Time] 42.8 s High 11.7-14.9 [facility] Venous Duplex US, Unilateral on 10-22-2024 Venous Duplex US, Unilateral [facility] Cardi[facility] Services [address] [place] [address] Venous Duplex US, Unilateral 10/22/24 1312 MR#: [id number] Acct: [id number] Name: IRIS BLUM Rep #: [id number] : 1950 74 From: Vince Carter MD Attending Dr: Dr. David Chambers MD Status: REG CLI Ordering Dr: David Chambers MD Date: 10/22/24 Location: CVS Sex: F C Admitted: Reason For Study Reason For Study: RLE Pain RIGHT GSV is normal. CFV is compressible, spontaneous, phasic, competent and demonstrates normal augmentation. FV is compressible, spontaneous, phasic, competent and demonstrates normal augmentation. POP V is compressible, spontaneous, phasic, competent and demonstrates normal augmentation. T/P Trunk is compressible. PTV is compressible. RT PerV is compressible. Nonvascularized area of mixed echogenicity noted throughout Rt Pop Fossa measuring approximately 6.77cm x 1.72cm. Procedure This is a venous duplex using B-mode, color flow and spectral Doppler. Exam performed in department. The study was technically difficult. A preliminary report was called and/or faxed to Dr Mckeon office. VL/Venous Duplex US, Unilateral Interpretation Summary Deep veins of the right lower extremity are patent and compressible segmentally. There is no evidence of right lower extremity deep vein thrombosis. The right great saphenous vein appears patent and compressible segmentally. Nonvascularized area of mixed echogenicity noted throughout Rt Pop Fossa measuring approximately 6.77cm x 1.72cm. Ordering Physician: David Chambers Referring Physician: David Chambers Performed By: Blayne Villatoro, T 10/27/24 1235 Date Vince Carter MD CC: Dr. David Chambers MD Date Dictated: 10/22/24 1312 Date Transcribed: 10/27/24 123 Sorter/Assay Tech: Signed Normal [facility] International normalized rat io (INR) calculationOrdered By: Lissette Griffin on 10-09-2024 INR Coag (Bld) [Relative time] 2.3 {INR} [facility] Prothrombin Time w/INRon INR Coag (PPP) [Relative time] 2.3 {INR} Normal [facility] Comment on above: Performed By: #### L 300.3900 #### [facility] [address] [place], [place], [id number] PT Coag (PPP) [Time] 26.1 s High 11.7-14.9 [facility] Comment on above: Performed By: #### L 300.3900 #### [facility] [address] [facility] [place], [place], [id number] Prothrombin timeOrdered By: Lissette Griffin on 10-09-2024 PT Coag (PPP) [Time] 26.1 s High 11.7-14.9 [facility] International normalized rat io (INR) calculationOrdered By: Edward Monahan on 09-30-2024 INR Coag (Bld) [Relative time] 1.3 {INR} [facility] Prothrombin Time w/INRon INR Coag (PPP) [Relative time] 1.3 {INR} Normal [facility] Comment on above: Order Comment: Comme nts: Do along with CBCD Performed By: #### L 300.3900 #### [facility] [address] [place], [address] PT Coag (PPP) [Time] 16.7 s High 11.7-14.9 [facility] Comment on above: Order Comment: Comme nts: Do along with CBCD Performed By: #### L 300.3900 #### [facility] [address] [place], [address] Prothrombin timeOrdered By: Edward Hero on 09-30-2024 PT Coag (PPP) [Time] 16.7 s High 11.7-14.9 [facility] Absolute lymphocyte countOrd ered By: Edward Hero on 09-22-2024 Lymphocytes Auto (Unsp spec) [#/Vol] 2.75 10*3/uL 0.83-4.51 [facility] Absolute neutrophil countOrd ered By: Edward Hero on 09-22-2024 Neutrophils (Bld) [#/Vol] 2.4 10*3/uL 2.0-7.7 [facility] Automated lymphocyte count a s percentage of total leukocytesOrdered By: Edward Hero on 09-22-2024 Lymphocytes/100 WBC Auto (Unsp spec) 47.6 % High 19-41 [facility] Basophil percentageOrdered B y: Edward Hero on 09-22-2024 Basophils/100 WBC (Bld) 1.0 % 0-1 [facility] CBC W/Diff, Automatedon Absolute Lymph 2.75 X10 3/uL Normal 0.83-4.51 [facility] Comment on above: Order Comment: Comme nts: Do along with CBCD Performed By: #### L 300.3900 #### [facility] [address] [place], [address] Absolute Neut 2.4 X10 3/uL Normal 2.0-7.7 [facility] Comment on above: Order Comment: Comme nts: Do along with CBCD Performed By: #### L 300.3900 #### [facility] [address] [place], [address] Basophils/100 WBC (Bld) 1.0 % Normal 0-1 [facility] Comment on above: Order Comment: Comme nts: Do along with CBCD Performed By: #### L 300.3900 #### [facility] [address] [place], [address] Eosinophils/100 WBC (Bld) 2.2 % Normal 0-5 [facility] Comment on above: Order Comment: Comme nts: Do along with CBCD Performed By: #### L 300.3900 #### [facility] [address] [place], [address] Erythrocyte distribution width (RBC) [Ratio] 14.7 % High 11.6-14.6 [facility] Comment on above: Order Comment: Comme nts: Do along with CBCD Performed By: #### L 300.3900 #### [facility] [address] [place], [address] Hematocrit (Bld) [Volume fraction] 40.1 % Normal 37-47 [facility] Comment on above: Order Comment: Comme nts: Do along with CBCD Performed By: #### L 300.3900 #### [facility] [address] [place], [address] Hemoglobin (Bld) [Mass/Vol] 12.8 g/dL Normal 12.0-15.0 [facility] Comment on above: Order Comment: Comme nts: Do along with CBCD Performed By: #### L 300.3900 #### [facility] [address] [place], [address] IG% 0.200 Normal 0.0-0.9 [facility] Comment on above: Order Comment: Comme nts: Do along with CBCD Result Comment: IG% - Immature Granulocytes (promyelocytes, myelocytes and metamyelocytes) > 1% indicates that a LEFT SHIFT is Present. Performed By: #### L 300.3900 #### [facility] [address] [place], [address] Lymphocytes/100 WBC (Bld) 47.6 % High 19-41 [facility] Comment on above: Order Comment: Comme nts: Do along with CBCD Performed By: #### L 300.3900 #### [facility] [address] [place], [address] MCH (RBC) [Entitic mass] 29.4 pg Normal 27.0-32.0 [facility] Comment on above: Order Comment: Comme nts: Do along with CBCD Performed By: #### L 300.3900 #### [facility] [address] [place], [address] MCHC (RBC) [Mass/Vol] 31.9 g/dL Low 32-36 [facility] Comment on above: Order Comment: Comme nts: Do along with CBCD Performed By: #### L 300.3900 #### [facility] [address] [place], [address] MCV (RBC) [Entitic vol] 92.2 fL Normal 81-99 [facility] Comment on above: Order Comment: Comme nts: Do along with CBCD Performed By: #### L 300.3900 #### [facility] [address] [place], [address] Monocytes/100 WBC (Bld) 8.1 % Normal 0-10 [facility] Comment on above: Order Comment: Comme nts: Do along with CBCD Performed By: #### L 300.3900 #### [facility] [address] [place], [address] Neutrophils/100 WBC (Bld) 40.9 % Low 47-70 [facility] Comment on above: Order Comment: Comme nts: Do along with CBCD Performed By: #### L 300.3900 #### [facility] [address] [place], [address] Nucleated RBC (Bld) [#/Vol] 0 10*3/uL Normal 0-5 [facility] Comment on above: Order Comment: Comme nts: Do along with CBCD Performed By: #### L 300.3900 #### [facility] [address] [place], [address] Platelet mean volume (Bld) [Entitic vol] 9.8 fL Normal 6.2-12.0 [facility] Comment on above: Order Comment: Comme nts: Do along with CBCD Performed By: #### L 300.3900 #### [facility] [address] [place], [address] Platelets (Bld) [#/Vol] 268 10*3/uL Normal 150-450 [facility] Comment on above: Order Comment: Comme nts: Do along with CBCD Performed By: #### L 300.3900 #### [facility] [address] [place], [address] RBC (Bld) [#/Vol] 4.35 10*6/uL Normal 4.2-5.4 [facility] Comment on above: Order Comment: Comme nts: Do along with CBCD Performed By: #### L 300.3900 #### [facility] [address] [place], [address] RDW SD 50.5 fl High 35.1-43.9 [facility] Comment on above: Order Comment: Comme nts: Do along with CBCD Performed By: #### L 300.3900 #### [facility] [address] [place], [address] WBC (Bld) [#/Vol] 5.8 10*3/uL Normal 4.4-11.0 [facility] Comment on above: Order Comment: Comme nts: Do along with CBCD Performed By: #### L [id number] #### [facility] [address] [place], [address] Eosinophil percentageOrdered By: [place] Hero on 09-22-2024 Eosinophils/100 WBC (Bld) 2.2 % 0-5 [facility] Erythrocyte distribution wid th ratioOrdered By: Edward Hero on 09-22-2024 Erythrocyte distribution width (RBC) [Ratio] 14.7 % High 11.6-14.6 [facility] Erythrocyte distribution wid th standard deviationOrdered By: Edward Hero on 09-22-2024 Erythrocyte distribution width (RBC) [Ratio] 50.5 fl High 35.1-43.9 [facility] Hematocrit Auto (Bld) [Volum e fraction]Ordered By: Edward Hero on 09-22-2024 Hematocrit (Bld) [Volume fraction] 40.1 % 37-47 [facility] Hemoglobin measurementOrdere d By: Edwarddelaney Monahan on 09-22-2024 Hemoglobin (Bld) [Mass/Vol] 12.8 g/dL 12.0-15.0 [facility] Immature granulocytes/100 WB C Auto (Bld)Ordered By: [place] Hero on 09-22-2024 Immature granulocytes/100 WBC (Bld) 0.200 % 0.0-0.9 [facility] Comment on above: IG% - Immature Granu locytes (promyelocytes, myelocytes and metamyelocytes) > 1% indicates that a LEFT SHIFT is Present. MCV (mean corpuscular volume ) determinationOrdered By: [place] Hero on 09-22-2024 MCV (RBC) [Entitic vol] 92.2 fL 81-99 [facility] Mean corpuscular hemoglobin (MCH) determinationOrdered By: [place] Hero on 09-22-2024 MCH (RBC) [Entitic mass] 29.4 pg 27.0-32.0 [facility] Mean corpuscular hemoglobin concentration (MCHC) determinationOrdered By: Edward Hero on 09-22-2024 MCHC (RBC) [Mass/Vol] 31.9 g/dL Low 32-36 [facility] Mean platelet volume determi nationOrdered By: Edward Hero on 09-22-2024 Platelet mean volume (Bld) [Entitic vol] 9.8 fL 6.2-12.0 [facility] Monocyte percentageOrdered B y: Edward Hero on 09-22-2024 Monocytes/100 WBC (Bld) 8.1 % 0-10 [facility] Neutrophil percentageOrdered By: [place] Hero on 09-22-2024 Neutrophils/100 WBC (Bld) 40.9 % Low 47-70 [facility] Nucleated red blood cell per centageOrdered By: Edward Hero on 09-22-2024 Nucleated RBC/100 WBC (Bld) [Ratio] 0 % 0-5 [facility] Platelet countOrdered By: Cy ril Hero on 09-22-2024 Platelets (Bld) [#/Vol] 268 10*3/uL 150-450 [facility] Prothrombin Time w/INRon INR Coag (PPP) [Relative time] 2.1 {INR} Normal [facility] Comment on above: Performed By: #### L 300.3900 #### [facility] [address] [place], [place], [id number] PT Coag (PPP) [Time] 24.4 s High 11.7-14.9 [facility] Comment on above: Performed By: #### L 300.3900 #### [facility] [address] [place], [place], [id number] RBC Auto (Bld) [#/Vol]Ordere d By: Edward Hero on 09-22-2024 RBC (Bld) [#/Vol] 4.35 10*6/uL 4.2-5.4 [facility] White blood cell (WBC) count Ordered By: Edward Hero on 09-22-2024 WBC (Bld) [#/Vol] 5.8 10*3/uL 4.4-11.0 [facility] Breast imaging reportOrdered By: Jen Orozco on 09-17-2024 Study report [facility] Imaging Services [address] [place], [place] [address] SCRN MAMM (CAD)W/LUZMARIA BILAT MR#: [id number] Acct: [id number] Name: IRIS BLUM Rep #: [id number] : 1950 F 73 From: Lydia Orozco MD PCP: Dr. David Chambers MD Status: REG C LI Study:SCRN MAMM (CAD)W/LUZMARIA BILAT Date of Exa m: 09/17/24 Exam# [id number] Ordering Dr: David Chambers MD EXAM: SCRN MAMM (CAD)W/LUZMARIA BILAT DATE: 09/17/2024 CLINICAL HISTORY: F, Age 73 y/o , SCREENING TECHNIQUE: SCRN MAMM (CAD)W/LUZMARIA BILAT COMPARISON: Prior exam(s) dated 02/02/2022, 07/02/2018. FINDINGS: TISSUE DENSITY: The breasts are almost entirely fatty. Bilateral Breast Mammographic Findings: No significant masses, calcifications or other abnormalities are identified. BI/SCRN MAMM (CAD)W/LUZMARIA BILAT IMPRESSION: There is no mammographic evidence of malignancy. OVERALL FINAL ASSESSMENT BI-RADS 1: NEGATIVE. RECOMMENDATION: Routine annual follow-up in 1 Year A letter with findings and recommendations will be mailed to the patient. Reading Location: [facility] CC: Dr. David Chambers MD ~ Sorter/Assay Tech: Signed [facility] International normalized rat io (INR) calculationOrdered By: Edward Monahan on 09-17-2024 INR Coag (Bld) [Relative time] 1.8 {INR} [facility] Prothrombin Time w/INRon INR Coag (PPP) [Relative time] 1.8 {INR} Normal [facility] Comment on above: Order Comment: Comme nts: Do along with CBCD Performed By: #### L 462.2555 #### [facility] [address] [place], [place], [address] PT Coag (PPP) [Time] 20.8 s High 11.7-14.9 [facility] Comment on above: Order Comment: Comme nts: Do along with CBCD Performed By: #### L 300.3777 #### [facility] [address] [place], [place], [id number] Prothrombin timeOrdered By: Edward Monahan on 09-17-2024 PT Coag (PPP) [Time] 20.8 s High 11.7-14.9 [facility] SCRN MAMM (CAD)W/LUZMARIA BILATo n 09-17-2024 SCRN MAMM (CAD)W/LUZMARIA BILAT [facility] Imaging Services [address] [place], [place] [address] SCRN MAMM (CAD)W/LUZMARIA BILAT MR#: [id number] Acct: [id number] Name: SAHARA BLUMLOTMARIE Robert Rep #: [id number] : 1950 F 73 From: Jen Orozco MD PCP: Dr. David Chambers MD Status: REG CLI Study: SCRN MAMM (CAD)W/LUZMARIA BILAT Date of Exam: 08/21 Exam# [id number] Ordering Dr: David Chambers MD EXAM: SCRN MAMM (CAD)W/LUZMARIA BILAT DATE: 09/17/2024 CLINICAL HISTORY: F, Age 73 y/o , SCREENING TECHNIQUE: SCRN MAMM (CAD)W/LUZMARIA BILAT COMPARISON: Prior exam(s) dated 02/02/2022, 07/02/2018. FINDINGS: TISSUE DENSITY: The breasts are almost entirely fatty. Bilateral Breast Mammographic Findings: No significant masses, calcifications or other abnormalities are identified. BI/SCRN MAMM (CAD)W/LUZMARIA BILAT IMPRESSION: There is no mammographic evidence of malignancy. OVERALL FINAL ASSESSMENT BI-RADS 1: NEGATIVE. RECOMMENDATION: Routine annual follow-up in 1 Year A letter with findings and recommendations will be mailed to the patient. Reading Location: [id number] CC: Dr. David Chambers MD Sorter/Assay Tech: Signed Normal [facility] Bilirubin directOrdered By: Daphne Brower on 09-10-2024 Bilirubin.direct [Mass/Vol] 0.14 mg/dL 0.00-0.30 [facility] Bilirubin, totalOrdered By: Daphne Brower on 09-10-2024 Bilirubin [Mass/Vol] 0.33 mg/dL 0.00-1.30 [facility] Calculated very low density lipoprotein (VLDL) cholesterol measurementOrdered By: Daphne Brower on 09-10-2024 Calculated very low density lipoprotein (VLDL) cholesterol measurement 29 mg/dL 5-40 [facility] LDL calc ser/plasOrdered By: Daphne Brower on 09-10-2024 Cholesterol in LDL [Mass/Vol] 48 mg/dL [facility] Comment on above: Lgisdgagfv=470-533 m g/dL & Higher Poib=709 mg/dL or greater Laboratory - Chemistry and C hemistry - challengeOrdered By: Daphne Brower on 09-10-2024 AST [Catalytic activity/Vol] 27 U/L <32 [facility] Lipid Profileon 09-10-2024 CHOL:HDL 2.32 Normal [facility] Comment on above: Performed By: #### L 400.0001, #### [facility] [address] [place], [address] Cholesterol [Mass/Vol] 135 mg/dL Normal <=[address] [facility] Comment on above: Result Comment: Chol esterol level, Desirable <200 mg/dL Borderline high cholesterol 200-239 mg/dL High cholesterol >=240 mg/dL Recommendations of the NCEP Adult Treatment Panel for the following risk-cutoff thresholds for the [place] population. Performed By: #### L 400.0001, #### [facility] [address] [place], [address] Cholesterol in HDL [Mass/Vol] 58 mg/dL Normal [facility] Comment on above: Result Comment: Margarita onal Cholesterol Education Program (NCEP) guidelines: <40 mg/dL: Low HDL-cholesterol (major risk factor for CHD) >= 60 mg/dL: High HDL-cholesterol (negative risk factor for CHD) HDL-cholesterol is affected by a number of factors, e.g. smoking, exercise, hormones, sex and age. Performed By: #### L 400.0001, #### [facility] [address] [place], [address] Cholesterol in LDL [Mass/Vol] 48 mg/dL Normal [facility] Comment on above: Result Comment: Bord vrqgpv=505-635 mg/dL Higher Gaik=351 mg/dL or greater Performed By: #### L 400.0001, #### [facility] [address] [place], [address] Cholesterol in VLDL [Mass/Vol] 29 mg/dL Normal 5-40 [facility] Comment on above: Performed By: #### L 400.0001, #### [facility] [address] [place], [address] Triglyceride [Mass/Vol] 145 mg/dL Normal [facility] Comment on above: Result Comment: The drugs N-Acetylcysteine and Metamizole may falsely depress this assay. Normal range: <150 mg/dL Borderline High: 150-199 mg/dL High: 200-499 mg/dL Very High: >500 mg/dL Performed By: #### L 400.0001, #### [facility] [address] [place], [address] Liver Profileon 09-10-2024 Albumin [Mass/Vol] 3.8 g/dL Normal 3.4-4.8 [facility] Comment on above: Performed By: #### L 400.0001, #### [facility] [address] [place], [address] ALK PHOS 73 U/L Normal 35-104 [facility] Comment on above: Performed By: #### L 400.0001, #### [facility] [address] [place], [address] ALT [Catalytic activity/Vol] 32 U/L Normal <=34 [facility] Comment on above: Performed By: #### L 400.0001, #### [facility] [address] [place], [address] AST [Catalytic activity/Vol] 27 U/L Normal <=31 [facility] Comment on above: Performed By: #### L 400.0001, #### [facility] [address] [place], [address] Bilirubin [Mass/Vol] 0.33 mg/dL Normal 0.00-1.30 [facility] Comment on above: Performed By: #### L 400.0001, #### [facility] [address] [place], [address] Bilirubin.direct [Mass/Vol] 0.14 mg/dL Normal 0.00-0.30 [facility] Comment on above: Performed By: #### L 400.0001, #### [facility] [address] [place], [address] Globulin (S) [Mass/Vol] 3.1 g/dL Normal 2.2-4.2 [facility] Comment on above: Performed By: #### L 400.0001, #### [facility] [address] [place], [address] T PROT 6.9 g/dL Normal 5.9-8.4 [facility] Comment on above: Performed By: #### L 400.0001, #### [facility] [address] [place], [address] Prothrombin Time w/INRon INR Coag (PPP) [Relative time] 1.3 {INR} Normal [facility] Comment on above: Performed By: #### L 400.0001, #### [facility] [address] [place], [place], [id number] PT Coag (PPP) [Time] 16.5 s High 11.7-14.9 [facility] Comment on above: Performed By: #### L 400.0001, #### [facility] [address] [place], [place], [id number] Screening total cholesterol/ high density lipoprotein (HDL) cholesterol ratioOrdered By: Daphne Brower on 09-10-2024 Cholesterol.total/Chol esterol in HDL [Mass ratio] 2.32 {ratio} [facility] Serum globulin measurementOr dered By: Daphne Brower on 09-10-2024 Globulin (S) [Mass/Vol] 3.1 g/dL 2.2-4.2 [facility] Serum or plasma alanine vargas otransferase (ALT) measurementOrdered By: Daphne Brower on 09-10-2024 ALT [Catalytic activity/Vol] 32 U/L <35 [facility] Serum or plasma albumin john urement (mass/volume)Ordered By: Daphne Brower on 09-10-2024 Albumin [Mass/Vol] 3.8 g/dL 3.4-4.8 [facility] Serum or plasma alkaline bao sphatase measurementOrdered By: Daphne Brower on 09-10-2024 ALP [Catalytic activity/Vol] 73 U/L 35-104 [facility] Serum or plasma cholesterol in HDL measurement (mass/volume)Ordered By: Daphne Brower on 09-10-2024 Cholesterol in HDL [Mass/Vol] 58 mg/dL >40 [facility] Comment on above: National Cholesterol Education Program (NCEP) guidelines:<40 mg/dL: Low HDL-cholesterol (major risk factor for CHD)>= 60 mg/dL: High HDL-cholesterol (negative risk factor for CHD)HDL-cholesterol is affected by a number of factors, e.g. smoking, exercise, hormones, sex and age. Serum or plasma cholesterol measurement (mass/volume)Ordered By: Daphne Brower on 09-10-2024 Cholesterol [Mass/Vol] 135 mg/dL <[address] [facility] Comment on above: Cholesterol level, D esirable <200 mg/dLBorderline high cholesterol 200-239 mg/dLHigh cholesterol >=240 mg/dLRecommendations of the NCEP Adult Treatment Panel for the following risk-cutoff thresholds for the [place] population. Total proteinOrdered By: Teresita Brower on 09-10-2024 Protein [Mass/Vol] 6.9 g/dL 5.9-8.4 [facility] Triglycerides measurementOrd ered By: Daphne Brower on 09-10-2024 Triglyceride [Mass/Vol] 145 mg/dL <199 [facility] Comment on above: The drugs N-Acetylcy steine and Metamizole may falsely depress this assay. Normal range: <150 mg/dLBorderline High: 150-199 mg/dLHigh: 200-499 mg/dLVery High: >500 mg/dL Prothrombin Time w/INRon INR Coag (PPP) [Relative time] 2.3 {INR} Normal [facility] Comment on above: Performed By: #### L 300.3900 #### [facility] [address] [place], [address] PT Coag (PPP) [Time] 26.1 s High 11.7-14.9 [facility] Comment on above: Performed By: #### L 300.3900 #### [facility] [address], [place], [id number] International normalized rat io (INR) calculationOrdered By: Lissette Griffin on 08-06-2024 INR Coag (Bld) [Relative time] 2.1 {INR} [facility] Prothrombin Time w/INRon INR Coag (PPP) [Relative time] 2.1 {INR} Normal [facility] Comment on above: Performed By: #### L 400.0001, M100.2200 #### [facility] [address] [place], [address] PT Coag (PPP) [Time] 23.6 s High 11.7-14.9 [facility] Comment on above: Performed By: #### L 400.0001, M100.2200 #### [facility] [address] [place], [place], [phone] Prothrombin timeOrdered By: Lissette Griffin on 08-06-2024 PT Coag (PPP) [Time] 23.6 s High 11.7-14.9 [facility] Calculated very low density lipoprotein (VLDL) cholesterol measurementOrdered By: Lissette Griffin on 07-29-2024 Calculated very low density lipoprotein (VLDL) cholesterol measurement 29 mg/dL 5-40 [facility] Free T3on 07-29-2024 Free T3 [Mass/Vol] 1.8 pg/mL Low 2.18-3.98 [facility] Comment on above: Performed By: #### L 300.3900 #### [facility] [address] [place], [place], [id number] Free Q8Pbouaem By: Lissette navarro on 07-29-2024 Free T3 [Mass/Vol] 1.8 pg/mL Low 2.18-3.98 [facility] LDL calc ser/plasOrdered By: Lissette Griffin on 07-29-2024 Cholesterol in LDL [Mass/Vol] 71 mg/dL [facility] Comment on above: Tmufnixioy=463-637 m g/dL & Higher Pdyo=328 mg/dL or greater Lipid Profileon 07-29-2024 CHOL:HDL 2.84 Normal [facility] Comment on above: Performed By: #### L 300.3900 #### [facility] [address] [place], [place], [phone] Cholesterol [Mass/Vol] 153 mg/dL Normal <=[address] [facility] Comment on above: Result Comment: Chol esterol level, Desirable <200 mg/dL Borderline high cholesterol 200-239 mg/dL High cholesterol >=240 mg/dL Recommendations of the NCEP Adult Treatment Panel for the following risk-cutoff thresholds for the [place] population. Performed By: #### L 300.3900 #### [facility] [address] [place], [address] Cholesterol in HDL [Mass/Vol] 54 mg/dL Normal [facility] Comment on above: Result Comment: Margarita onal Cholesterol Education Program (NCEP) guidelines: <40 mg/dL: Low HDL-cholesterol (major risk factor for CHD) >= 60 mg/dL: High HDL-cholesterol (negative risk factor for CHD) HDL-cholesterol is affected by a number of factors, e.g. smoking, exercise, hormones, sex and age. Performed By: #### L 300.3900 #### [facility] [address] [place], [address] Cholesterol in LDL [Mass/Vol] 71 mg/dL Normal [facility] Comment on above: Result Comment: Bord iardol=902-875 mg/dL Higher Lcrf=647 mg/dL or greater Performed By: #### L 300.3900 #### [facility] [address] [place], [address] Cholesterol in VLDL [Mass/Vol] 29 mg/dL Normal 5-40 [facility] Comment on above: Performed By: #### L 300.3900 #### [facility] [address] [place], [address] Triglyceride [Mass/Vol] 143 mg/dL Normal [facility] Comment on above: Result Comment: The drugs N-Acetylcysteine and Metamizole may falsely depress this assay. Normal range: <150 mg/dL Borderline High: 150-199 mg/dL High: 200-499 mg/dL Very High: >500 mg/dL Performed By: #### L 300.3900 #### [facility] [address] [place], [address] Prothrombin Time w/INRon INR Coag (PPP) [Relative time] 3.6 {INR} Normal [facility] Comment on above: Performed By: #### L 300.3900 #### [facility] [address] [place], [address] PT Coag (PPP) [Time] 36.8 s High 11.7-14.9 [facility] Comment on above: Performed By: #### L 300.3900 #### [facility] [address] [place], [address] Screening total cholesterol/ high density lipoprotein (HDL) cholesterol ratioOrdered By: Lissette Griffin on 07-29-2024 Cholesterol.total/Chol esterol in HDL [Mass ratio] 2.84 {ratio} [facility] Serum or plasma cholesterol in HDL measurement (mass/volume)Ordered By: Lissette Griffin on 07-29-2024 Cholesterol in HDL [Mass/Vol] 54 mg/dL >40 [facility] Comment on above: National Cholesterol Education Program (NCEP) guidelines:<40 mg/dL: Low HDL-cholesterol (major risk factor for CHD)>= 60 mg/dL: High HDL-cholesterol (negative risk factor for CHD)HDL-cholesterol is affected by a number of factors, e.g. smoking, exercise, hormones, sex and age. Serum or plasma cholesterol measurement (mass/volume)Ordered By: Lissette Griffin on 07-29-2024 Cholesterol [Mass/Vol] 153 mg/dL <[address] [facility] Comment on above: Cholesterol level, D esirable <200 mg/dLBorderline high cholesterol 200-239 mg/dLHigh cholesterol >=240 mg/dLRecommendations of the NCEP Adult Treatment Panel for the following risk-cutoff thresholds for the [place] population. T4 Free Directon 07-29-2024 T4 FREE DIRECT 1.80 ng/dL High 0.76-1.46 [facility] Comment on above: Performed By: #### L 300.3900 #### [facility] [address] [place], [place], [id number] T4 freeOrdered By: Lissette navarro on 07-29-2024 Free T4 [Mass/Vol] 1.80 ng/dL High 0.76-1.46 [facility] TSH DL <= 0.005 mIU/L QnOrde red By: Lissette Griffin on 07-29-2024 TSH Qn 2.980 uIU/mL 0.300-4.20 0 [facility] Thyroid Stim Hormone (TSH)on 07-29-2024 TSH 2.980 uIU/mL Normal 0.300-4.20 0 [facility] Comment on above: Performed By: #### L [id number] #### [facility] [address] [place], [address] Triglycerides measurementOrd ered By: Lissette Griffin on 07-29-2024 Triglyceride [Mass/Vol] 143 mg/dL <199 [facility] Comment on above: The drugs N-Acetylcy steine and Metamizole may falsely depress this assay. Normal range: <150 mg/dLBorderline High: 150-199 mg/dLHigh: 200-499 mg/dLVery High: >500 mg/dL Absolute lymphocyte countOrd ered By: Lissette Griffin on 07-21-2024 Lymphocytes Auto (Unsp spec) [#/Vol] 2.93 10*3/uL 0.83-4.51 [facility] Absolute neutrophil countOrd ered By: Lissette Griffin on 07-21-2024 Neutrophils (Bld) [#/Vol] 3.1 10*3/uL 2.0-7.7 [facility] Anion gap in Serum or Plasma Ordered By: Lissette Griffin on 07-21-2024 Anion gap [Moles/Vol] 11 mmol/L 5-15 [facility] Automated lymphocyte count a s percentage of total leukocytesOrdered By: Lissette Griffin on 07-21-2024 Lymphocytes/100 WBC Auto (Unsp spec) 43.0 % High 19-41 [facility] BUN/creatinine ratioOrdered By: Lissette Griffin on 07-21-2024 Urea nitrogen/Creatinine [Mass ratio] 21.8 mg/mg High 10-20 [facility] Basophil percentageOrdered B y: Lissette Griffin on 07-21-2024 Basophils/100 WBC (Bld) 1.3 % High 0-1 [facility] Bilirubin, totalOrdered By: Lissette Griffin on 07-21-2024 Bilirubin [Mass/Vol] 0.25 mg/dL 0.00-1.30 [facility] CBC W/Diff, Automatedon 06-0 2-2024 Absolute Lymph 2.93 X10 3/uL Normal 0.83-4.51 [facility] Comment on above: Order Comment: PT-RO BERTSOTHER TESTS-VELLANKI Performed By: #### L 300.3900 #### [facility] [address] [place], [address] Absolute Neut 3.1 X10 3/uL Normal 2.0-7.7 [facility] Comment on above: Order Comment: PT-RO BERTSOTHER TESTS-VELLANKI Performed By: #### L 300.3900 #### [facility] [address] [place], [address] Basophils/100 WBC (Bld) 1.3 % High 0-1 [facility] Comment on above: Order Comment: PT-RO BERTSOTHER TESTS-VELLANKI Performed By: #### L 300.3900 #### [facility] [address] [place], [address] Eosinophils/100 WBC (Bld) 2.5 % Normal 0-5 [facility] Comment on above: Order Comment: PT-RO BERTSOTHER TESTS-VELLANKI Performed By: #### L 300.3900 #### [facility] [address] [place], [address] Erythrocyte distribution width (RBC) [Ratio] 16.1 % High 11.6-14.6 [facility] Comment on above: Order Comment: PT-RO BERTSOTHER TESTS-VELLANKI Performed By: #### L 300.3900 #### [facility] [address] [place], [address] Hematocrit (Bld) [Volume fraction] 43.2 % Normal 37-47 [facility] Comment on above: Order Comment: PT-RO BERTSOTHER TESTS-VELLANKI Performed By: #### L 300.3900 #### [facility] [address] [place], [address] Hemoglobin (Bld) [Mass/Vol] 13.9 g/dL Normal 12.0-15.0 [facility] Comment on above: Order Comment: PT-RO BERTSOTHER TESTS-VELLANKI Performed By: #### L 300.3900 #### [facility] [address] [place], [address] IG% 0.100 Normal 0.0-0.9 [facility] Comment on above: Order Comment: PT-RO BERTSOTHER TESTS-VELLANKI Result Comment: IG% - Immature Granulocytes (promyelocytes, myelocytes and metamyelocytes) > 1% indicates that a LEFT SHIFT is Present. Performed By: #### L 300.3900 #### [facility] [address] [place], [address] Lymphocytes/100 WBC (Bld) 43.0 % High 19-41 [facility] Comment on above: Order Comment: PT-RO BERTSOTHER TESTS-VELLANKI Performed By: #### L 300.3900 #### [facility] [address] [place], [address] MCH (RBC) [Entitic mass] 29.4 pg Normal 27.0-32.0 [facility] Comment on above: Order Comment: PT-RO BERTSOTHER TESTS-VELLANKI Performed By: #### L 300.3900 #### [facility] [address] [place], [address] MCHC (RBC) [Mass/Vol] 32.2 g/dL Normal 32-36 [facility] Comment on above: Order Comment: PT-RO BERTSOTHER TESTS-VELLANKI Performed By: #### L 300.3900 #### [facility] [address] [place], [address] MCV (RBC) [Entitic vol] 91.5 fL Normal 81-99 [facility] Comment on above: Order Comment: PT-RO BERTSOTHER TESTS-VELLANKI Performed By: #### L 300.3900 #### [facility] [address] [place], [address] Monocytes/100 WBC (Bld) 7.9 % Normal 0-10 [facility] Comment on above: Order Comment: PT-RO BERTSOTHER TESTS-VELLANKI Performed By: #### L 300.3900 #### [facility] [address] [place], [address] Neutrophils/100 WBC (Bld) 45.2 % Low 47-70 [facility] Comment on above: Order Comment: PT-RO BERTSOTHER TESTS-VELLANKI Performed By: #### L 300.3900 #### [facility] [address] [place], [address] Nucleated RBC (Bld) [#/Vol] 0 10*3/uL Normal 0-5 [facility] Comment on above: Order Comment: PT-RO BERTSOTHER TESTS-VELLANKI Performed By: #### L 300.3900 #### [facility] [address] [place], [address] Platelet mean volume (Bld) [Entitic vol] 11.4 fL Normal 6.2-12.0 [facility] Comment on above: Order Comment: PT-RO BERTSOTHER TESTS-VELLANKI Performed By: #### L 300.3900 #### [facility] [address] [place], [address] Platelets (Bld) [#/Vol] 340 10*3/uL Normal 150-450 [facility] Comment on above: Order Comment: PT-RO BERTSOTHER TESTS-VELLANKI Performed By: #### L 300.3900 #### [facility] [address] [place], [address] RBC (Bld) [#/Vol] 4.72 10*6/uL Normal 4.2-5.4 [facility] Comment on above: Order Comment: PT-RO BERTSOTHER TESTS-VELLANKI Performed By: #### L 300.3900 #### [facility] [address] [place], [address] RDW SD 54.5 fl High 35.1-43.9 [facility] Comment on above: Order Comment: PT-RO BERTSOTHER TESTS-VELLANKI Performed By: #### L 300.3900 #### [facility] [address] [place], [address] WBC (Bld) [#/Vol] 6.8 10*3/uL Normal 4.4-11.0 [facility] Comment on above: Order Comment: PT-RO BERTSOTHER TESTS-VELLANKI Performed By: #### L 300.3900 #### [facility] [address] [place], [address] Carbon dioxide, total [Moles /volume] in Central venous bloodOrdered By: Lissette Griffin on 07-21-2024 CO2 [Moles/Vol] 26.6 mmol/L 21.0-32.0 [facility] Chloride assayOrdered By: Brian Griffin on 07-21-2024 Chloride [Moles/Vol] 104 mmol/L 98-108 [facility] Comprehensive Metabolic Prof ilon 07-21-2024 Albumin [Mass/Vol] 3.6 g/dL Normal 3.4-4.8 [facility] Comment on above: Order Comment: PT-RO BERTSOTHER TESTS-VELLANKI Performed By: #### L 300.3900 #### [facility] [address] [place], [address] Albumin/Globulin [Mass ratio] 1.2 {ratio} Normal 0.9-2.4 [facility] Comment on above: Order Comment: PT-RO BERTSOTHER TESTS-VELLANKI Performed By: #### L 300.3900 #### [facility] [address] [place], [address] ALK PHOS 82 U/L Normal 35-104 [facility] Comment on above: Order Comment: PT-RO BERTSOTHER TESTS-VELLANKI Performed By: #### L 300.3900 #### [facility] [address] [place], [address] ALT [Catalytic activity/Vol] 37 U/L High <=34 [facility] Comment on above: Order Comment: PT-RO BERTSOTHER TESTS-VELLANKI Performed By: #### L 300.3900 #### [facility] [address] [place], [address] AST [Catalytic activity/Vol] 41 U/L High <=31 [facility] Comment on above: Order Comment: PT-RO BERTSOTHER TESTS-VELLANKI Result Comment: Hemo lysis present, Results??could be affected. ?? Performed By: #### L 300.3900 #### [facility] [address] [place], [address] Bilirubin [Mass/Vol] 0.25 mg/dL Normal 0.00-1.30 [facility] Comment on above: Order Comment: PT-RO BERTSOTHER TESTS-VELLANKI Performed By: #### L 300.3900 #### [facility] [address] [place], [address] BUN/CRE 21.8 RATIO High 10-20 [facility] Comment on above: Order Comment: PT-RO BERTSOTHER TESTS-VELLANKI Performed By: #### L 300.3900 #### [facility] [address] [place], [address] Calcium [Mass/Vol] 9.2 mg/dL Normal 7.6-11.0 [facility] Comment on above: Order Comment: PT-RO BERTSOTHER TESTS-VELLANKI Performed By: #### L 300.3900 #### [facility] [address] [place], [address] Chloride [Moles/Vol] 104 mmol/L Normal 98-108 [facility] Comment on above: Order Comment: PT-RO BERTSOTHER TESTS-VELLANKI Performed By: #### L 300.3900 #### [facility] [address] [place], [address] CO2 [Moles/Vol] 26.6 mmol/L Normal 21.0-32.0 [facility] Comment on above: Order Comment: PT-RO BERTSOTHER TESTS-VELLANKI Performed By: #### L 300.3900 #### [facility] [address] [place], [address] Creatinine [Mass/Vol] 1.11 mg/dL Normal 0.70-1.20 [facility] Comment on above: Order Comment: PT-RO BERTSOTHER TESTS-VELLANKI Performed By: #### L 300.3900 #### [facility] [address] [place], [address] GAP 11 Normal 5-15 [facility] Comment on above: Order Comment: PT-RO BERTSOTHER TESTS-VELLANKI Performed By: #### L 300.3900 #### [facility] [address] [place], [address] GFR/1.73 sq M.predicted among non-blacks MDRD (S/P/Bld) [Vol rate/Area] 53 mL/min/{1.73_m2} Low >60 [facility] Comment on above: Order Comment: PT-RO BERTSOTHER TESTS-VELLANKI Result Comment: mL/m in/1.73m2 CKD-EPI Creatinine Equation (2020) Performed By: #### L 300.3900 #### [facility] [address] [place], [address] Globulin (S) [Mass/Vol] 3.0 g/dL Normal 2.2-4.2 [facility] Comment on above: Order Comment: PT-RO BERTSOTHER TESTS-VELLANKI Performed By: #### L 300.3900 #### [facility] [address] [place], [address] Glucose [Mass/Vol] 86 mg/dL Normal 70-99 [facility] Comment on above: Order Comment: PT-RO BERTSOTHER TESTS-VELLANKI Performed By: #### L 300.3900 #### [facility] [address] [place], [address] Potassium [Moles/Vol] 4.5 mmol/L Normal 3.3-5.1 [facility] Comment on above: Order Comment: PT-RO BERTSOTHER TESTS-VELLANKI Result Comment: Hemo lysis present, Results??could be affected. ?? Performed By: #### L 300.3900 #### [facility] [address] [place], [address] Sodium [Moles/Vol] 141 mmol/L Normal 133-145 [facility] Comment on above: Order Comment: PT-RO BERTSOTHER TESTS-VELLANKI Performed By: #### L 300.3900 #### [facility] [address] [place], [address] T PROT 6.7 g/dL Normal 5.9-8.4 [facility] Comment on above: Order Comment: PT-RO BERTSOTHER TESTS-VELLANKI Performed By: #### L 300.3900 #### [facility] [address] [place], [address] Urea nitrogen [Mass/Vol] 24 mg/dL High 4-19 [facility] Comment on above: Order Comment: PT-RO BERTSOTHER TESTS-VELLANKI Performed By: #### L 300.3900 #### [facility] [address] [place], [address] Eosinophil percentageOrdered By: Lissette Griffin on 06-02-2025 Eosinophils/100 WBC (Bld) 2.5 % 0-5 [facility] Erythrocyte distribution wid th ratioOrdered By: Lissette Griffin on 07-21-2024 Erythrocyte distribution width (RBC) [Ratio] 16.1 % High 11.6-14.6 [facility] Erythrocyte distribution wid th standard deviationOrdered By: Lissette Griffin on 07-21-2024 Erythrocyte distribution width (RBC) [Ratio] 54.5 fl High 35.1-43.9 [facility] Glomerular filtration rate ( GFR) estimation/1.73 sq m using serum, plasma, or whole bOrdered By: Lissette Griffin on 07-21-2024 GFR/1.73 sq M.predicted among non-blacks MDRD (S/P/Bld) [Vol rate/Area] 53 mL/min/{1.73_m2} Low >60 [facility] Comment on above: mL/min/1.73m2 CKD-EP I Creatinine Equation (2020) Hematocrit Auto (Bld) [Volum e fraction]Ordered By: Lissette Griffin on 07-21-2024 Hematocrit (Bld) [Volume fraction] 43.2 % 37-47 [facility] Hemoglobin measurementOrdere d By: Lissette Griffin on 07-21-2024 Hemoglobin (Bld) [Mass/Vol] 13.9 g/dL 12.0-15.0 [facility] Immature granulocytes/100 WB C Auto (Bld)Ordered By: Lissette Griffin on 07-21-2024 Immature granulocytes/100 WBC (Bld) 0.100 % 0.0-0.9 [facility] Comment on above: IG% - Immature Granu locytes (promyelocytes, myelocytes and metamyelocytes) > 1% indicates that a LEFT SHIFT is Present. Laboratory - Chemistry and C hemistry - challengeOrdered By: Lissette Griffin on 07-21-2024 AST [Catalytic activity/Vol] 41 U/L High <32 [facility] Comment on above: Hemolysis present, R esults could be affected. MCV (mean corpuscular volume ) determinationOrdered By: Lissette Griffin on 07-21-2024 MCV (RBC) [Entitic vol] 91.5 fL 81-99 [facility] Mean corpuscular hemoglobin (MCH) determinationOrdered By: Lissette Griffin on 07-21-2024 MCH (RBC) [Entitic mass] 29.4 pg 27.0-32.0 [facility] Mean corpuscular hemoglobin concentration (MCHC) determinationOrdered By: Lissette Griffin on 07-21-2024 MCHC (RBC) [Mass/Vol] 32.2 g/dL 32-36 [facility] Mean platelet volume determi nationOrdered By: Lissette Griffin on 07-21-2024 Platelet mean volume (Bld) [Entitic vol] 11.4 fL 6.2-12.0 [facility] Monocyte percentageOrdered B y: Lissette Griffin on 07-21-2024 Monocytes/100 WBC (Bld) 7.9 % 0-10 [facility] Neutrophil percentageOrdered By: Lissette Griffin on 07-21-2024 Neutrophils/100 WBC (Bld) 45.2 % Low 47-70 [facility] Nucleated red blood cell per centageOrdered By: Lissette Griffin on 07-21-2024 Nucleated RBC/100 WBC (Bld) [Ratio] 0 % 0-5 [facility] Platelet countOrdered By: Brian Griffin on 07-21-2024 Platelets (Bld) [#/Vol] 340 10*3/uL 150-450 [facility] Potassium measurement (mass/ volume)Ordered By: Lissette Griffin on 07-21-2024 Potassium (Unsp spec) [Mass/Vol] 4.5 mmol/L 3.3-5.1 [facility] Comment on above: Hemolysis present, R esults could be affected. Prothrombin Time w/INRon INR Coag (PPP) [Relative time] 4.0 {INR} Invalid Interpretation Code [facility] Comment on above: Order Comment: PT-RO BERTSOTHER TESTS-VELMICHAEL Result Comment: CRIT ICAL VALUE CALLED TO Bess GRIFFIN NP 07/21/24 1610 Fatmata Crisostomo. RESULTS READ BACK BY SAME. Performed By: #### L 898.8909 #### [facility] [address] [place], [place], [id number] PT Coag (PPP) [Time] 39.5 s High 11.7-14.9 [facility] Comment on above: Order Comment: PT-RO BERTSOTHER TESTS-VELLANADDIE Performed By: #### L 300.3900 #### [facility] [address] [place], [address] RBC Auto (Bld) [#/Vol]Ordere d By: Lissette Griffin on 07-21-2024 RBC (Bld) [#/Vol] 4.72 10*6/uL 4.2-5.4 [facility] Serum creatinine measurement (mass/volume)Ordered By: Lissette Griffin on 07-21-2024 Creatinine [Mass/Vol] 1.11 mg/dL 0.70-1.20 [facility] Serum globulin measurementOr dered By: Lissette Griffin on 07-21-2024 Globulin (S) [Mass/Vol] 3.0 g/dL 2.2-4.2 [facility] Serum glucose measurement (m ass/volume)Ordered By: Lissette Griffin on 07-21-2024 Glucose [Mass/Vol] 86 mg/dL 70-99 [facility] Serum or plasma alanine vargas otransferase (ALT) measurementOrdered By: Lissette Griffin on 07-21-2024 ALT [Catalytic activity/Vol] 37 U/L High <35 [facility] Serum or plasma albumin john urement (mass/volume)Ordered By: Lissette Griffin on 07-21-2024 Albumin [Mass/Vol] 3.6 g/dL 3.4-4.8 [facility] Serum or plasma albumin/glob ulin mass ratioOrdered By: Lissette Griffin on 07-21-2024 Albumin/Globulin [Mass ratio] 1.2 {ratio} 0.9-2.4 [facility] Serum or plasma alkaline bao sphatase measurementOrdered By: Lissette Griffin on 07-21-2024 ALP [Catalytic activity/Vol] 82 U/L 35-104 [facility] Serum or plasma calcium john urement (mass/volume)Ordered By: Lissette Griffin on 07-21-2024 Calcium [Mass/Vol] 9.2 mg/dL 7.6-11.0 [facility] Serum or plasma urea nitroge n measurement (mass/volume)Ordered By: Lissette Griffin on 07-21-2024 Urea nitrogen [Mass/Vol] 24 mg/dL High 4-19 [facility] Sodium levelOrdered By: Callie Griffin on 07-21-2024 Sodium [Moles/Vol] 141 mmol/L 133-145 [facility] Total proteinOrdered By: Teddy Griffin on 07-21-2024 Protein [Mass/Vol] 6.7 g/dL 5.9-8.4 [facility] White blood cell (WBC) count Ordered By: Lissette Griffin on 07-21-2024 WBC (Bld) [#/Vol] 6.8 10*3/uL 4.4-11.0 [facility] International normalized rat io (INR) calculationOrdered By: Lissette Griffin on 07-10-2024 INR Coag (Bld) [Relative time] 3.1 {INR} [facility] Prothrombin Time w/INRon INR Coag (PPP) [Relative time] 3.1 {INR} Normal [facility] Comment on above: Performed By: #### L 9200.0000 #### [facility] [address] [place], [place], [id number] PT Coag (PPP) [Time] 32.3 s High 11.7-14.9 [facility] Comment on above: Performed By: #### L 9200.0000 #### [facility] [address] [place], [place], [id number] Prothrombin timeOrdered By: Lissette Griffin on 07-10-2024 PT Coag (PPP) [Time] 32.3 s High 11.7-14.9 [facility] Thyroid Stim Immunoglobon THY STIM IMMUNO <0.10 Normal 0.00-0.55 [facility] Comment on above: Order Comment: Order Date: 01/24/24Order Info: 53350-8 - TSIMM Result Comment: Perf ormed at: - [facility] [id number] Critical Care Paramedic: Chavo Samaniego MD, Phone: [phone] Performed By: #### L 436.3903 #### [facility] [address] [place], [place], [id number] Anion gap in Serum or Plasma Ordered By: David Chambers on 06-25-2024 Anion gap [Moles/Vol] 10 mmol/L 5-15 [facility] BUN/creatinine ratioOrdered By: David Chambers on 06-25-2024 Urea nitrogen/Creatinine [Mass ratio] 23.3 mg/mg High 10-20 [facility] Basic Metabolic Profile (BMP )on 06-25-2024 BUN/CRE 23.3 RATIO High 10-20 [facility] Comment on above: Order Comment: Order Date: 01/24/24Order Info: 666-02 - BMPOrder Info: 3 - TSH Performed By: #### L 300.3900 #### [facility] [address] [place], [address] Calcium [Mass/Vol] 9.0 mg/dL Normal 7.6-11.0 [facility] Comment on above: Order Comment: Order Date: 01/24/24Order Info: 666-02 - BMPOrder Info: 3 - TSH Performed By: #### L 300.3900 #### [facility] [address] [place], [address] Chloride [Moles/Vol] 103 mmol/L Normal 98-108 [facility] Comment on above: Order Comment: Order Date: 01/24/24Order Info: 666-02 - BMPOrder Info: 6-3 - TSH Performed By: #### L 300.3900 #### [facility] [address] [place], [address] CO2 [Moles/Vol] 27.3 mmol/L Normal 21.0-32.0 [facility] Comment on above: Order Comment: Order Date: 01/24/24Order Info: 666-02 - BMPOrder Info: 3015-3 - TSH Performed By: #### L 300.3900 #### [facility] [address] [place], [address] Creatinine [Mass/Vol] 1.14 mg/dL Normal 0.70-1.20 [facility] Comment on above: Order Comment: Order Date: 01/24/24Order Info: 666-02 - BMPOrder Info: 3015-3 - TSH Performed By: #### L 300.3900 #### [facility] [address] [place], [address] GAP 10 Normal 5-15 [facility] Comment on above: Order Comment: Order Date: 01/24/24Order Info: 666-02 - BMPOrder Info: 3 - TSH Performed By: #### L 300.3900 #### [facility] [address] [place], [address] GFR/1.73 sq M.predicted among non-blacks MDRD (S/P/Bld) [Vol rate/Area] 51 mL/min/{1.73_m2} Low >60 [facility] Comment on above: Order Comment: Order Date: 01/24/24Order Info: 666-02 - BMPOrder Info: 3 - TSH Result Comment: mL/m in/1.73m2 CKD-EPI Creatinine Equation (2020) Performed By: #### L 300.3900 #### [facility] [address] [place], [address] Glucose [Mass/Vol] 92 mg/dL Normal 70-99 [facility] Comment on above: Order Comment: Order Date: 01/24/24Order Info: 666-02 - BMPOrder Info: 3 - TSH Performed By: #### L 300.3900 #### [facility] [address] [place], [address] Potassium [Moles/Vol] 4.0 mmol/L Normal 3.3-5.1 [facility] Comment on above: Order Comment: Order Date: 01/24/24Order Info: 666-02 - BMPOrder Info: 3015-3 - TSH Performed By: #### L 300.3900 #### [facility] [address] [place], [address] Sodium [Moles/Vol] 140 mmol/L Normal 133-145 [facility] Comment on above: Order Comment: Order Date: 01/24/24Order Info: 666-1 - BMPOrder Info: 3016-3 - TSH Performed By: #### L 300.3900 #### [facility] [address] [place], [place], [address] Urea nitrogen [Mass/Vol] 27 mg/dL High 4-19 [facility] Comment on above: Order Comment: Order Date: 01/24/24Order Info: 666-1 - BMPOrder Info: 3016-3 - TSH Performed By: #### L 300.3900 #### [facility] [address] [place], [address] Carbon dioxide, total [Moles /volume] in Central venous bloodOrdered By: David Chambers on 06-25-2024 CO2 [Moles/Vol] 27.3 mmol/L 21.0-32.0 [facility] Chloride assayOrdered By: Ezequiel Chambers on 06-25-2024 Chloride [Moles/Vol] 103 mmol/L 98-108 [facility] Glomerular filtration rate ( GFR) estimation/1.73 sq m using serum, plasma, or whole bOrdered By: David Chambers on 06-25-2024 GFR/1.73 sq M.predicted among non-blacks MDRD (S/P/Bld) [Vol rate/Area] 51 mL/min/{1.73_m2} Low >60 [facility] Comment on above: mL/min/1.73m2 CKD-EP I Creatinine Equation (2020) Potassium measurement (mass/ volume)Ordered By: David Chambers on 06-25-2024 Potassium (Unsp spec) [Mass/Vol] 4.0 mmol/L 3.3-5.1 [facility] Prothrombin Time w/INRon INR Coag (PPP) [Relative time] 1.9 {INR} Normal [facility] Comment on above: Performed By: #### L 300.3900 #### [facility] [address] [place], [place], [id number] PT Coag (PPP) [Time] 21.9 s High 11.7-14.9 [facility] Comment on above: Performed By: #### L 300.3900 #### [facility] [address] [place], [place], [address] Serum creatinine measurement (mass/volume)Ordered By: David Chambers on 06-25-2024 Creatinine [Mass/Vol] 1.14 mg/dL 0.70-1.20 [facility] Serum glucose measurement (m ass/volume)Ordered By: David Chambers on 06-25-2024 Glucose [Mass/Vol] 92 mg/dL 70-99 [facility] Serum or plasma calcium john urement (mass/volume)Ordered By: David Chambers on 06-25-2024 Calcium [Mass/Vol] 9.0 mg/dL 7.6-11.0 [facility] Serum or plasma urea nitroge n measurement (mass/volume)Ordered By: David Chambers on 06-25-2024 Urea nitrogen [Mass/Vol] 27 mg/dL High 4-19 [facility] Sodium levelOrdered By: David Chambers on 06-25-2024 Sodium [Moles/Vol] 140 mmol/L 133-145 [facility] TSH DL <= 0.005 mIU/L QnOrde red By: David Chambers on 06-25-2024 TSH Qn 3.850 uIU/mL 0.300-4.20 0 [facility] Thyroid Stim Hormone (TSH)on 06-25-2024 TSH 3.850 uIU/mL Normal 0.300-4.20 0 [facility] Comment on above: Order Comment: Order Date: 01/24/24Order Info: 0667-1 - BMPOrder Info: 3016-3 - TSH Performed By: #### L 300.3900 #### [facility] [address] [place], [place], [id number] Thyroid stimulating immunogl obulins detectionOrdered By: David Chambers on 06-25-2024 Thyroid stimulating immunoglobulins Ql (S) <0.10 IU/L 0.00-0.55 [facility] Comment on above: Performed at: - [address] [id number] Director: Chavo Samaniego MD, Phone: [phone] International normalized rat io (INR) calculationOrdered By: Lissette Griffin on 06-12-2024 INR Coag (Bld) [Relative time] 1.8 {INR} [facility] Prothrombin Time w/INRon INR Coag (PPP) [Relative time] 1.8 {INR} Normal [facility] Comment on above: Performed By: #### L 300.3900 #### [facility] [address] [place], [place], [id number] PT Coag (PPP) [Time] 21.5 s High 11.7-14.9 [facility] Comment on above: Performed By: #### L 300.3900 #### [facility] [address] [place], [address] Prothrombin timeOrdered By: Lissette Griffin on 06-12-2024 PT Coag (PPP) [Time] 21.5 s High 11.7-14.9 [facility] Colonoscopy Reporton 025 Colonoscopy Report [facility] Medical Records Department [address] [place] [address] Colonoscopy Report MR#: [id number] Acct: [id number] Name: IRIS BLUM Rep #: [id number] : 1950 73 From: Guille Perez DO PCP: Dr. David Chambers MD Status:[facility] Patient Name: Iris Blum Procedure Date: 06/04/2024 8:02 AM Date of : 1950 Age: 73 Procedure: Colonoscopy Indications: Chronic diarrhea Providers: Guille Perez DO Referring MD: David Chambers MD Medicines: Monitored Anesthesia Care Patient Profile: This is a 73 year old female. Refer to note in patient chart for documentation of history and physical. Last Colonoscopy: several years ago. Complications: No immediate complications. Procedure: Pre-Anesthesia Assessment: - Prior to the procedure, a History and Physical was performed, and patient medications and allergies were reviewed. The patient is competent. The risks and benefits of the procedure and the sedation options and risks were discussed with the patient. All questions were answered and informed consent was obtained. Patient identification and proposed procedure were verified by the physician in the pre-procedure area. Mental Status Examination: alert and oriented. Airway Examination: normal oropharyngeal airway and neck mobility. Respiratory Examination: clear to auscultation. CV Examination: normal. Prophylactic Antibiotics: The patient does not require prophylactic antibiotics. Prior Anticoagulants: The patient has taken no anticoagulant or antiplatelet agents except for NSAID medication. ASA Grade Assessment: II - A patient with mild systemic disease. After reviewing the risks and benefits, the patient was deemed in satisfactory condition to undergo the procedure. The anesthesia plan was to use monitored anesthesia care (MAC). Immediately prior to administration of medications, the patient was re-assessed for adequacy to receive sedatives. The heart rate, respiratory rate, oxygen saturations, blood pressure, adequacy of pulmonary ventilation, and response to care were monitored throughout the procedure. The physical status of the patient was re-assessed after the procedure. After I obtained informed consent, the scope was passed under direct vision. Throughout the procedure, the patient's blood pressure, pulse, and oxygen saturations were monitored continuously. The Colonoscope was introduced through the anus and advanced to the terminal ileum. The colonoscopy was performed without difficulty. The patient tolerated the procedure well. The quality of the bowel preparation was adequate. The terminal ileum, ileocecal valve, appendiceal orifice, and rectum were photographed. Scope In: 8:29:29 AM Scope Withdrawal Time 0 hours 23 minutes 9 seconds Scope Out: 8:56:44 AM Total Procedure Duration Time 0 hours 27 minutes 15 seconds Findings: The perianal and digital rectal examinations were normal. Seven sessile polyps were found in the rectum, ascending colon and cecum. The polyps were 1 to 2 mm in size. These polyps were removed with a cold snare. Resection and retrieval were complete. Verification of patient identification for the specimen was done. Estimated blood loss was minimal. Two medium-sized localized angiodysplastic lesions without bleeding were found in the recto-sigmoid colon and in the sigmoid colon. Coagulation for bleeding prevention using monopolar probe was successful. Estimated blood loss was minimal. Multiple small and large-mouthed diverticula were found in the recto-sigmoid colon, sigmoid colon, descending colon, hepatic flexure and ascending colon. Patchy mild inflammation characterized by congestion (edema) and erythema was found in the terminal ileum. Biopsies were taken with a cold forceps for histology. Verification of patient identification for the specimen was done. Estimated blood loss was minimal. Impression: - Seven 1 to 2 mm polyps in the rectum, in the ascending colon and in the cecum, removed with a cold snare. Resected and retrieved. - Two non-bleeding colonic angiodysplastic lesions. Treated with a monopolar probe. - Diverticulosis in the recto-sigmoid colon, in the sigmoid colon, in the descending colon, at the hepatic flexure and in the ascending colon. - Mild inflammation was found in the ileum secondary to ileitis. Biopsied. Recommendation: - Discharge patient to home. - Resume previous diet. - Continue present medications. - Await pathology results. - Repeat colonoscopy in 1 year for surveillance. Procedure Code(s): --- Professional --- 76125, 59, Colonoscopy, flexible; with control of bleeding, any method 99963, Colonoscopy, flexible; with removal of tumor(s), polyp(s), or other lesion(s) by snare technique 40062, 59, Colonoscopy, flexible; with biopsy, sing (more content not included)... Normal [facility] INR Coag (BldC) [Relative ti me]Ordered By: Guille Perez on 06-04-2024 INR Coag (Bld) [Relative time] 1.2 {INR} [facility] Comment on above: Critical Value > 4.0 International normalized rat io (INR) measurement by fingerstickOrdered By: Guille Perez on 06-04-2024 INR Coag (BldC) [Relative time] 1.2 [facility] Comment on above: Critical Value > 4.0 MR/POSTOP.ANEon 06-04-2024 MR/POSTOP.MARLA [facility] Medical Records Department [address] [place] [address] Anesthesia Postop Eval I 06/04/24 0908 MR#: [id number] Acct: [id number] Name: IRIS BLUM Rep #: [id number] : 1950 73 From: Michael Reardon PCP: Dr. David Chambers MD Status:REG SD Y Race: C Location: [place] [address] Anesthesia: Postop Eval I Current Vital Signs Temperature: 97 F Pulse Rate: 55 Blood Pressure: 101/67 Respiratory Rate: 16 Pulse Ox: 100 Oxygen Delivery Method: Room Air Assessment Airway patent: Yes Spontaneous unlabored respirations: Yes Mental status: Asleep nausea: No Vomiting: No Anesthesia Complication: No Fluid Hydration Crystalloid volume administer (ml): 55 Total IV fluid infused: 55 Progress Note Anesthesia document: Postop Eval 1 completed: Yes 06/04/24908 Date Michael Vaughanigner Signature: Date CC: Signed Normal [facility] MR/[id number] 06-04-2024 MR/POSTOPAN2 [facility] Medical Records Department [address] [place] [address] Anesthesia Postop Eval II 06/04/24914 MR#: [id number] Acct: [id number] Name: IRIS BLUM Rep #: [id number] : 1950 73 From: Abdoulaye Camarillo MD PCP: Dr. David Chambers MD Status:REG [facility] Y Race: C Location: [place] [address] Anesthesia Postop Eval I Sum Postop Eval Completion status Anesthesia document: Postop Eval 1 completed: Yes Anesthesia Postop Eval I Summary Anesthesia Postop Eval I Summary: Anesthesia Postop Eval I: Assessment Summary Airway patent Yes 06/04/24 09:09 [email or web address] Spontaneous unlabored Yes 06/04/24 09:09 [email or web address] respirations Mental status Asleep 06/04/24 09:09 [email or web address] nausea No 06/04/24 09:09 [email or web address] Vomiting No 06/04/24 09:09 [email or web address] Anesthesia Postop Eval I: Fluid Summary Crystalloid volume administer 55 06/04/24 09:09 [email or web address] (ml) Colloids volume administered ( ml) Blood Product volume administered (ml) Total IV fluid infused 55 06/04/24 09:09 [email or web address] Anesthesia Postop Eval I: Summary Notes Anesthesia Complication No 06/04/24 09:09 [email or web address] Anesthesia Complication Comment: Post-operative progress note Anesthesia: Postop Eval II Evaluation Mental status: Awake Pain Level: 0 nausea: No Vomiting: No 06/04/24914 Date Abdoulaye Ying Signature: Date CC: Signed Normal [facility] PT Coag (Bld) [Time]Ordered By: Guille Perez on 06-04-2024 Bedside Prothrombin Time 14.3 SEC 11.7-14.9 [facility] Protime w/INR Fingerstickon 06-04-2024 INR Coag (PPP) [Relative time] 1.2 {INR} Normal [facility] Comment on above: Result Comment: Crit ical Value > 4.0 Performed By: #### L 9200.0000 #### [facility] [address] [place], [address] Protime [place] 14.3 SEC Normal 11.7-14.9 [facility] Comment on above: Performed By: #### L 9200.0000 #### [facility] [address] [place], [place], [id number] Surgery Specimen Level Susan 06-04-2024 Surgery Specimen Level IV Patient Age/Sex Location Account Attending Physician IRIS BLUM 73/F EN [id number] Guille Perez DO Specimen: [id number] Received: 06/04/24 Status: REGIS Rouse Num: [id number] Spec Type: COLON BX Subm Dr: Guille Perez DO HEADMONIE OPERATION: Colonoscopy with biopsies and polypectomy PRE-OP DIAGNOSIS: Chronic diarrhea TISSUE SUBMITTED: A- Cecum polyp, B- Terminal ileum biopsy, C- Hepatic flexure polyp,D- Rectal polyps MICROSCOPIC DIAGNOSIS A. Colon, cecum, polyp, biopsy: * Sessile serrated adenoma B. Small bowel, terminal ileum, biopsy: * Small bowel mucosa with no pathologic change C. Colon, hepatic flexure, polyp, biopsy: * Tubular adenoma D. Rectum, polyp, biopsy: * Tubular adenoma MICROSCOPIC DESCRIPTION Slides are reviewed. GROSS DESCRIPTION A. Received in formalin in a container labeled with the patient's name, date of , and cecum polyp are multiple haque-pink fragments of mucosal tissue measuring 1.7 x 0.6 x 0.3 cm in aggregate. Submitted in toto in A1. B. Received in formalin in a container labeled with the patient's name, date of , and terminal ileum biopsy are multiple haque-pink fragments of mucosal tissue measuring 1.0 x 0.5 x 0.2 cm in aggregate. Submitted in toto in B1. C. Received in formalin in a container labeled with the patient's name, date of , and hepatic flexure polyp are multiple haque-pink fragments of mucosal tissue measuring 1.0 x 0.7 x 0.2 cm in aggregate. Submitted in toto in C1. D. Received in formalin in a container labeled with the patient's name, date of , and rectal polyps are multiple haque-pink fragments of mucosal tissue measuring 1.7 x 1.2 x 0.3 cm in aggregate. Submitted in toto in D1. [facility] 06/10/2024 [facility]:[id number] Patient Age/Sex Location Account Attending Physician IRIS BLUM 73/F EN [id number] Guille Perez DO Signed (signature on file) Dr. Donna Frankel, 06/10/24 0835 Normal [facility] Comment on above: Performed By: #### L 400.0001, M100.2200 #### [facility] [address] [place], [address] Whole blood prothrombin time Ordered By: Guille Perez on 06-04-2024 PT Coag (Bld) [Time] 14.3 s 11.7-14.9 [facility] MR/PATOctavio 05-30-2024 MR/PAT.[facility] Medical Records Department [address] [place] [address] PAT - Anesthesia 05/30/24 1356 MR#: [id number] Acct: [id number] Name: IRIS BLUM Rep #: [id number] : 1950 73 From: Abdoulaye Camarillo MD PCP: Dr. David Chambers MD Status:PRE [facility] Y Race: C Location: EN Pre-Assessment Diagnosis/Proposed Procedure Planned Operative Procedure(s): CSCOPE Anesthesia History Anesthesia History - logger all round: Anesthesia History - logger all round Hx Hospitalization Yes: 02/2024 WITH AFIB 05/30/24 13:26 Any Problems With Anesthesia Yes: NAUSEA 05/30/24 13:26 Cholinesterase deficiency No 05/30/24 13:26 You/Your Family Experience No 05/30/24 13:26 fever (hyperthermia) with Relationship Recent Exposure to Contagious No 08/01/17 08:13 Disease Does patient have nerve No 05/30/24 13:26 stimulator Patient instructed to have device shut off --Does patient have Pacemaker or ICD? When Was Last Pacemaker Check QUESTION #4 FULL TEXT: You/Your Family Experience fever (hyperthermia) with Anesthesia Last Oral Intake Last Oral intake: Last Oral Intake NPO since Meds taken in AM with sips of water? Meds patient instructed to take am of surgery PONV PONV - logger all round: PONV - logger all round Female Yes 05/30/24 13:26 HX of Motion Sickness No 05/30/24 13:26 HX of N/V After Surgery Yes 05/30/24 13:26 Non-Smoker Yes 05/30/24 13:26 Duration of Surgery greater No 05/30/24 13:26 than 60 minutes Number of Risk Factors 3 05/30/24 13:26 PONV Score Moderate Risk 05/30/24 13:26 Height Weight Height Weight: Anesthesia: Height Weight Height 5 ft 3 in 04/30/24 11:00 Respiratory Assessment Respiratory Assessment - logger all round: Respiratory Tract Infection Hx - logger all round Hx Respiratory Tract Infection No 05/30/24 13:26 STOP Sleep Apnea STOP Sleep Apnea - logger all round: STOP Sleep Apnea - logger all round Hx Hypertension Yes: CONTROLLED WITH MED 05/30/24 13:26 Hx Sleep Apnea Yes 05/30/24 13:26 CPAP Yes: NONCOMPLIANT 05/30/24 13:26 BIPAP No 05/30/24 13:26 Do you snore loudly (louder than talking or can be heard Do you often feel tired/ fatigued/ sleepy during daytime? Has anyone observed you stop breathing during sleep? STOP Results Positive 05/30/24 13:26 QUESTION #5 FULL TEXT : Do you snore loudly (louder than talking or can be heard through closed doors)? 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 Specify any problems Hx of Preganancy in last 3 No 05/30/24 13:26 Months Nurse Filling Out Transfusion DSCHRIBER 05/30/24 13:26 Questions: Date: 05/30/24 05/30/24 13:26 Time: 05/30/24 13:26 Patient unable to answer at this time (ie. confused, unrespo /Reproduction History /Reproductive History - logger all round: /Reproductive Hx- logger all round Hx Now No 05/30/24 13:26 Gestational Age (in weeks): EDC: Hx Hx Para Hx Section SAB No 05/30/24 13:26 PFS Medical History (Updated 05/30/24 @ 13:37 by Isabella Michaels) Falls Loss of hearing Wears glasses Wears dentures Wears partial dentures Cancer Post-menopausal Fibromyalgia Anxiety History of steroid therapy Thyroid disease Bladder disease Walker as ambulation aid Anemia High cholesterol Back pain Migraine headache History of ulceration History of IBS Non-smoker CPAP (continuous positive airway pressure) dependence Asthma Shortness of breath on exertion History of pain when walking History of edema History of echocardiogram History of stress test Cardiology follow-up encounter History of atrial fibrillation Contact with and (suspected) exposure to other viral communicable diseases History of DVT (deep vein thrombosis) SVT (supraventricular tachycardia) Essential hypertension Wound infection after surgery Depression Hypothyroidism Vitamin B12 deficiency Vitamin D de (more content not included)... Normal [facility] Anion gap in Serum or Plasma Ordered By: David Chambers on 05-22-2024 Anion gap [Moles/Vol] 12 mmol/L 5-15 [facility] BUN/creatinine ratioOrdered By: David Chambers on 05-22-2024 Urea nitrogen/Creatinine [Mass ratio] 20.8 mg/mg High 10- [facility] Basic Metabolic Profile (BMP )on 05-22-2024 BUN/CRE 20.8 RATIO High 12-08 [facility] Comment on above: Performed By: #### L 9200.0000 #### [facility] [address] [place], [address] Calcium [Mass/Vol] 9.0 mg/dL Normal 7.6-11.0 [facility] Comment on above: Performed By: #### L 9200.0000 #### [facility] [address] [place], [address] Chloride [Moles/Vol] 101 mmol/L Normal 98-108 [facility] Comment on above: Performed By: #### L 9200.0000 #### [facility] [address] [place], [address] CO2 [Moles/Vol] 24.7 mmol/L Normal 21.0-32.0 [facility] Comment on above: Performed By: #### L 9200.0000 #### [facility] [address] [place], [address] Creatinine [Mass/Vol] 1.05 mg/dL Normal 0.70-1.20 [facility] Comment on above: Performed By: #### L 9200.0000 #### [facility] [address] [place], [address] GAP 12 Normal 5-15 [facility] Comment on above: Performed By: #### L 9200.0000 #### [facility] [address] [place], [address] GFR/1.73 sq M.predicted among non-blacks MDRD (S/P/Bld) [Vol rate/Area] 57 mL/min/{1.73_m2} Low >60 [facility] Comment on above: Result Comment: mL/m in/1.73m2 CKD-EPI Creatinine Equation (2020) Performed By: #### L 9200.0000 #### [facility] [address] [place], [address] Glucose [Mass/Vol] 85 mg/dL Normal 70-99 [facility] Comment on above: Performed By: #### L 9200.0000 #### [facility] [address] [place], [address] Potassium [Moles/Vol] 4.1 mmol/L Normal 3.3-5.1 [facility] Comment on above: Performed By: #### L 9200.0000 #### [facility] [address] [place], [address] Sodium [Moles/Vol] 138 mmol/L Normal 133-145 [facility] Comment on above: Performed By: #### L 9200.0000 #### [facility] [address] [place], [address] Urea nitrogen [Mass/Vol] 22 mg/dL High 4-19 [facility] Comment on above: Performed By: #### L 9200.0000 #### [facility] [address] [place], [address] Carbon dioxide, total [Moles /volume] in Central venous bloodOrdered By: David Chambers on 05-22-2024 CO2 [Moles/Vol] 24.7 mmol/L 21.0-32.0 [facility] Chloride assayOrdered By: Ezequiel Chambers on 05-22-2024 Chloride [Moles/Vol] 101 mmol/L 98-108 [facility] Free T3on 05-22-2024 Free T3 [Mass/Vol] 2.0 pg/mL Low 2.18-3.98 [facility] Comment on above: Performed By: #### L 300.3900 #### [facility] [address] [place], [address] Free G3Udmntnd By: David tamez on 05-22-2024 Free T3 [Mass/Vol] 2.0 pg/mL Low 2.18-3.98 [facility] Free Triiodothyronine (T3) pg/dL 2.0 pg/mL Low 2.18-3.98 [facility] GFR/1.73 sq M.predicted gilson g non-blacks MDRD (S/P/Bld) [Vol rate/Area]Ordered By: David Chambers on 05-22-2024 Estimated GFR (MDRD) Non-Af Amer 57 Low >60 [facility] Comment on above: mL/min/1.73m2 CKD-EP I Creatinine Equation (2020) Glomerular filtration rate ( GFR) estimation/1.73 sq m using serum, plasma, or whole bOrdered By: David Chambers on 05-22-2024 GFR/1.73 sq M.predicted among non-blacks MDRD (S/P/Bld) [Vol rate/Area] 57 mL/min/{1.73_m2} Low >60 [facility] Comment on above: mL/min/1.73m2 CKD-EP I Creatinine Equation (2020) International normalized rat io (INR) calculationOrdered By: Lissette Griffin on 05-22-2024 INR Coag (Bld) [Relative time] 2.2 {INR} [facility] Potassium (Unsp spec) [Mass/ Vol]Ordered By: David Chambers on 05-22-2024 Potassium [Moles/Vol] 4.1 mmol/L 3.3-5.1 [facility] Potassium measurement (mass/ volume)Ordered By: David Chambers on 05-22-2024 Potassium (Unsp spec) [Mass/Vol] 4.1 mmol/L 3.3-5.1 [facility] Prothrombin Time w/INRon INR Coag (PPP) [Relative time] 2.2 {INR} Normal [facility] Comment on above: Performed By: #### L 300.3900 #### [facility] [address] [place], [place], [id number] PT Coag (PPP) [Time] 25.2 s High 11.7-14.9 [facility] Comment on above: Performed By: #### L 300.3900 #### [facility] [address] [place], [place], [id number] Prothrombin timeOrdered By: Lissette Griffin on 05-22-2024 PT Coag (PPP) [Time] 25.2 s High 11.7-14.9 [facility] Serum creatinine measurement (mass/volume)Ordered By: David Chambers on 05-22-2024 Creatinine [Mass/Vol] 1.05 mg/dL 0.70-1.20 [facility] Serum glucose measurement (m ass/volume)Ordered By: David Chambers on 05-22-2024 Glucose [Mass/Vol] 85 mg/dL 70-99 [facility] Serum or plasma calcium john urement (mass/volume)Ordered By: David Chambers on 05-22-2024 Calcium [Mass/Vol] 9.0 mg/dL 7.6-11.0 [facility] Serum or plasma urea nitroge n measurement (mass/volume)Ordered By: David Chambers on 05-22-2024 Urea nitrogen [Mass/Vol] 22 mg/dL High 4-19 [facility] Sodium levelOrdered By: David Chambers on 05-22-2024 Sodium [Moles/Vol] 138 mmol/L 133-145 [facility] T4 Free Directon 05-22-2024 T4 FREE DIRECT 1.70 ng/dL High 0.76-1.46 [facility] Comment on above: Performed By: #### L 300.3900 #### [facility] [address] [place], [address] T4 freeOrdered By: David tamez on 05-22-2024 Free T4 [Mass/Vol] 1.70 ng/dL High 0.76-1.46 [facility] TSH DL <= 0.005 mIU/L QnOrde red By: David Chambers on 05-22-2024 Thyroid Stimulating Hormone (TSH) 3.930 uIU/mL 0.300-4.20 0 [facility] TSH Qn 3.930 uIU/mL 0.300-4.20 0 [facility] Thyroid Stim Hormone (TSH)on 05-22-2024 TSH 3.930 uIU/mL Normal 0.300-4.20 0 [facility] Comment on above: Performed By: #### L 300.3900 #### [facility] [address] [place], [place], [id number] International normalized rat io (INR) calculationOrdered By: Lissette Griffin on 05-15-2024 INR Coag (Bld) [Relative time] 1.2 {INR} [facility] Prothrombin Time w/INRon INR Coag (PPP) [Relative time] 1.2 {INR} Normal [facility] Comment on above: Performed By: #### L 300.3900 #### [facility] [address] [place], [place], [id number] PT Coag (PPP) [Time] 15.4 s High 11.7-14.9 [facility] Comment on above: Performed By: #### L 300.3900 #### [facility] [address] [place], [place], [id number] Prothrombin timeOrdered By: Lissette Griffin on 05-15-2024 PT Coag (PPP) [Time] 15.4 s High 11.7-14.9 [facility] Cardiology Visit Reporton Cardiology Visit Report [facility] [address] [place], [place] [address] OFFICE VISIT Date of Service: 04/30/24 MR#: [id number] Acct: [id number] Name: IRIS BLUM Rep #: [id number] : 1950 Provider: ROBERT johnston Age/Sex: 73/F Location: [facility] [place] Status: Signed HPI HPI History of Present Illness Details: This is a 73-year-old white female who presents today for outpatient cardiovascular follow-up visit. She was previously seen for a history of SVT superimposed upon hypertension. She states she has a longstanding history of an SVT for which she has been treated with her beta-doris. Patient presented to the emergency room on 08/06/2023 with complaints of palpitations. She was noted to be in atrial fibrillation with RVR. She was given adenosine and Cardizem. She was admitted for further evaluation. Her [id number] score was 5, and she was started on Eliquis, and amiodarone at that time. She denies chest, arm, jaw, or neck discomfort. She denies palpitations. She states bilateral lower extremity edema. She denies claudication. She states shortness of breath with activity when walking long distances. She denies shortness of breath at rest, orthopnea, or PND. She denies chronic cough. She denies significant, sudden weight gain. She denies lightheadedness, dizziness, near-syncope, or syncope. She denies blood in urine, blood in stool, or epistaxis. He denies fever with chills. She denies myalgia. She denies fatigue. Her exercise level has remained stable. Intake Vital Signs 10/31/23 11:14 12/09/23 16:42 04/30/24 11:00 Height 5 ft 3 in 5 ft 3 in 5 ft 3 in Weight: 317 lb BMI 56.1 BP 129/73 H Blood Pressure Location Lt brachial Position Sitting Respiration 18 Pulse 65 Pulse Source NIBP Intake Visit Reasons: 6 M FU [employer] Required: No Is patient in pain?: No Allergies adhesive tape Allergy (Verified 04/30/24 11:17) Rash codeine Allergy (Verified 04/30/24 11:17) Hives Opioids - Morphine Analogues Allergy (Verified 04/30/24 11:17) Hives fosinopril (From Monopril) Adverse Reaction (Verified 04/30/24 11:17) severe cough Medications ???Medication ???Instructions ???Recorded ???Confirmed ???Type fluticasone propionate 50 1 spray NASAL DAILY allergies 11/1904/30/24 History mcg/actuation nasal spray,suspension loperamide 2 mg capsule 2 mg PO DAILY PRN Diarrhea 6 04/30/24 History pantoprazole 40 mg tablet,delayed 40 mg PO DAILY reflux 11/29/15 History release albuterol sulfate 90 mcg/actuation 2 puff inhalation Q6H PRN PRN 04/30/24 History aerosol inhaler Asthma duloxetine 60 mg capsule,delayed 60 mg PO DAILY mental health 12/1204/30/24 History release adalimumab 40 mg/0.8 mL 40 mg subcut FR infection 09/29/20 04/30/24 History subcutaneous syringe kit gabapentin 300 mg capsule 300 mg PO BID nerve pain 09/30/20 04/30/24 History multivitamin 1 tab PO DAILY vitamin 09/30/20 History prednisone 10 mg tablet 10 mg PO DAILY PRN RA flair 04/30/24 History montelukast 10 mg tablet 10 mg PO DAILY asthma 08/07/2302/12 History solifenacin 10 mg tablet 10 mg PO DAILY rheumatiod 08/07/23 04/30/24 History tramadol 50 mg tablet 50 mg PO TID PRN PRN pain 08/07/23 04/30/24 History triamterene 37.5 1 cap PO DAILY BP 08/07/23 5 History mg-hydrochlorothiazide 25 mg capsule amiodarone 200 mg tablet 200 mg PO DAILY #90 tabs 08/22/23 04/30/24 Rx metoprolol tartrate 50 mg tablet 50 mg PO BID #180 tabs 10/31/23 Rx colestipol 1 gram tablet 1 g PO QDAY #60 tabs 04/03/2404/19 Rx warfarin 2 mg tablet 2 mg PO SUMOTUWEFRSA 04/18/2404/19 History warfarin 4 mg tablet 4 mg .Route .COMPLEX 04/18/2404/19 History amitriptyline 150 mg tablet 150 mg PO QHS 04/30/24 04/30/24 Hi story furosemide 20 mg tablet 20 mg PO QDAY PRN 04/30/24 5 History hydroxychloroquine 200 mg tablet 200 mg PO BID 04/30/24 04/30/24 Hi story levothyroxine 200 mcg tablet 200 mcg PO QDAY 04/30/24 04/30/24 History Ejection fraction %: 65 Have you fallen in the past year?: Yes (X 3 just lost balance) [facility] Medical History Contact with and (suspected) exposure to other viral communicable diseases History of DVT (deep vein thrombosis) SVT (supraventricular tachycardia) Essential hypertension Wound infection after surgery Depression Hypothyroidism Vitamin B12 deficiency Vitamin D deficiency Insomnia Allergic rhinitis GERD (gastroesophageal reflux disease) Morbid obesity Right rotator cuff tear Rheumatoid arthritis Surgical History History of bilateral cataract (more content not included)... Normal [facility] normalized rat io (INR) calculationOrdered By: Lissette Griffin on 04-30-2024 INR Coag (Bld) [Relative time] 2.6 {INR} [facility] Prothrombin Time w/INRon INR Coag (PPP) [Relative time] 2.6 {INR} Normal [facility] Comment on above: Performed By: #### L 300.3900 #### [facility] [address] [place], [address] PT Coag (PPP) [Time] 28.0 s High 11.7-14.9 [facility] Comment on above: Performed By: #### L 300.3900 #### [facility] [address] [place], [address] Prothrombin timeOrdered By: Lissette Griffin on 04-30-2024 PT Coag (PPP) [Time] 28.0 s High 11.7-14.9 [facility] Absolute lymphocyte countOrd ered By: Dinah Fernandez on 04-23-2024 Lymphocytes Auto (Unsp spec) [#/Vol] 2.54 10*3/uL 0.83-4.51 [facility] Absolute neutrophil countOrd ered By: Dinah Fernandez on 04-23-2024 Neutrophils (Bld) [#/Vol] 2.6 10*3/uL 2.0-7.7 [facility] Anion gap in Serum or Plasma Ordered By: Dinah Fernandez on 04-23-2024 Anion gap [Moles/Vol] 10 mmol/L 5-15 [facility] Automated lymphocyte count a s percentage of total leukocytesOrdered By: Dinah Fernandez on 04-23-2024 Lymphocytes/100 WBC Auto (Unsp spec) 43.0 % High 19-41 [facility] BUN/creatinine ratioOrdered By: Dinah Fernandez on 04-23-2024 Urea nitrogen/Creatinine [Mass ratio] 22.4 mg/mg High 10-20 [facility] Basophil percentageOrdered B y: Dinah Rebecca on 04-23-2024 Basophils/100 WBC (Bld) 1.2 % High 0-1 [facility] Bilirubin, totalOrdered By: Dinah Cernaaddie on 04-23-2024 Bilirubin [Mass/Vol] 0.27 mg/dL 0.00-1.30 [facility] CBC W/Diff, Automatedon Absolute Lymph 2.54 X10 3/uL Normal 0.83-4.51 [facility] Comment on above: Performed By: #### L 300.3900 #### [facility] [address] [place], [address] Absolute Neut 2.6 X10 3/uL Normal 2.0-7.7 [facility] Comment on above: Performed By: #### L 300.3900 #### [facility] [address] [place], [address] Basophils/100 WBC (Bld) 1.2 % High 0-1 [facility] Comment on above: Performed By: #### L 300.3900 #### [facility] [address] [place], [address] Eosinophils/100 WBC (Bld) 2.7 % Normal 0-5 [facility] Comment on above: Performed By: #### L 300.3900 #### [facility] [address] [place], [address] Erythrocyte distribution width (RBC) [Ratio] 14.3 % Normal 11.6-14.6 [facility] Comment on above: Performed By: #### L 300.3900 #### [facility] [address] [place], [address] Hematocrit (Bld) [Volume fraction] 44.0 % Normal 37-47 [facility] Comment on above: Performed By: #### L 300.3900 #### [facility] [address] [place], [address] Hemoglobin (Bld) [Mass/Vol] 13.7 g/dL Normal 12.0-15.0 [facility] Comment on above: Performed By: #### L 300.3900 #### [facility] [address] [place], [address] IG% 0.200 Normal 0.0-0.9 [facility] Comment on above: Result Comment: IG% - Immature Granulocytes (promyelocytes, myelocytes and metamyelocytes) > 1% indicates that a LEFT SHIFT is Present. Performed By: #### L 300.3900 #### [facility] [address] [place], [address] Lymphocytes/100 WBC (Bld) 43.0 % High 19-41 [facility] Comment on above: Performed By: #### L 300.3900 #### [facility] [place], [address] MCH (RBC) [Entitic mass] 28.8 pg Normal 27.0-32.0 [facility] Comment on above: Performed By: #### L 300.3900 #### [facility] [address] [place], [address] MCHC (RBC) [Mass/Vol] 31.1 g/dL Low 32-36 [facility] Comment on above: Performed By: #### L 300.3900 #### [facility] [address] [place], [address] MCV (RBC) [Entitic vol] 92.6 fL Normal 81-99 [facility] Comment on above: Performed By: #### L 300.3900 #### [facility] [address] [place], [address] Monocytes/100 WBC (Bld) 9.1 % Normal 0-10 [facility] Comment on above: Performed By: #### L 300.3900 #### [facility] [address] [place], [address] Neutrophils/100 WBC (Bld) 43.8 % Low 47-70 [facility] Comment on above: Performed By: #### L 300.3900 #### [facility] [address] [place], [address] Nucleated RBC (Bld) [#/Vol] 0 10*3/uL Normal 0-5 [facility] Comment on above: Performed By: #### L 300.3900 #### [facility] [address] [place], [address] Platelet mean volume (Bld) [Entitic vol] 9.7 fL Normal 6.2-12.0 [facility] Comment on above: Performed By: #### L 300.3900 #### [facility] [address] [place], [address] Platelets (Bld) [#/Vol] 250 10*3/uL Normal 150-450 [facility] Comment on above: Performed By: #### L 300.3900 #### [facility] [address] [place], [address] RBC (Bld) [#/Vol] 4.75 10*6/uL Normal 4.2-5.4 [facility] Comment on above: Performed By: #### L 300.3900 #### [facility] [address] [place], [address] RDW SD 48.3 fl High 35.1-43.9 [facility] Comment on above: Performed By: #### L 300.3900 #### [facility] [address] [place], [address] WBC (Bld) [#/Vol] 5.9 10*3/uL Normal 4.4-11.0 [facility] Comment on above: Performed By: #### L 300.3900 #### [facility] [address] [place], [address] Carbon dioxide, total [Moles /volume] in Central venous bloodOrdered By: Dinah Fernandez on 04-23-2024 CO2 [Moles/Vol] 27.7 mmol/L 21.0-32.0 [facility] Chloride assayOrdered By: Ezequiel Fernandez on 04-23-2024 Chloride [Moles/Vol] 105 mmol/L 98-108 [facility] Comprehensive Metabolic Prof ilon 04-23-2024 Albumin [Mass/Vol] 3.8 g/dL Normal 3.4-4.8 [facility] Comment on above: Performed By: #### L 300.3900 #### [facility] [address] [place], [address] Albumin/Globulin [Mass ratio] 1.2 {ratio} Normal 0.9-2.4 [facility] Comment on above: Performed By: #### L 300.3900 #### [facility] [address] [place], [address] ALK PHOS 67 U/L Normal 35-104 [facility] Comment on above: Performed By: #### L 300.3900 #### [facility] [address] [place], [address] ALT [Catalytic activity/Vol] 26 U/L Normal <=34 [facility] Comment on above: Performed By: #### L 300.3900 #### [facility] [address] [place], [address] AST [Catalytic activity/Vol] 24 U/L Normal <=31 [facility] Comment on above: Performed By: #### L 300.3900 #### [facility] [address] [place], [address] Bilirubin [Mass/Vol] 0.27 mg/dL Normal 0.00-1.30 [facility] Comment on above: Performed By: #### L 300.3900 #### [facility] [address] [place], [address] BUN/CRE 22.4 RATIO High 10-20 [facility] Comment on above: Performed By: #### L 300.3900 #### [facility] [address] [place], [address] Calcium [Mass/Vol] 8.9 mg/dL Normal 7.6-11.0 [facility] Comment on above: Performed By: #### L 300.3900 #### [facility] [address] [place], [address] Chloride [Moles/Vol] 105 mmol/L Normal 98-108 [facility] Comment on above: Performed By: #### L 300.3900 #### [facility] [address] [place], [address] CO2 [Moles/Vol] 27.7 mmol/L Normal 21.0-32.0 [facility] Comment on above: Performed By: #### L 300.3900 #### [facility] [address] [place], [address] Creatinine [Mass/Vol] 0.93 mg/dL Normal 0.70-1.20 [facility] Comment on above: Performed By: #### L 300.3900 #### [facility] [address] [place], [address] GAP 10 Normal 5-15 [facility] Comment on above: Performed By: #### L 300.3900 #### [facility] [address] [place], [address] GFR/1.73 sq M.predicted among non-blacks MDRD (S/P/Bld) [Vol rate/Area] 65 mL/min/{1.73_m2} Normal >60 [facility] Comment on above: Result Comment: mL/m in/1.73m2 CKD-EPI Creatinine Equation (2020) Performed By: #### L 300.3900 #### [facility] [address] [place], [address] Globulin (S) [Mass/Vol] 3.1 g/dL Normal 2.2-4.2 [facility] Comment on above: Performed By: #### L 300.3900 #### [facility] [address] [place], [address] Glucose [Mass/Vol] 90 mg/dL Normal 70-99 [facility] Comment on above: Performed By: #### L 300.3900 #### [facility] [address] [place], [address] Potassium [Moles/Vol] 4.0 mmol/L Normal 3.3-5.1 [facility] Comment on above: Performed By: #### L 300.3900 #### [facility] [address] [place], [address] Sodium [Moles/Vol] 142 mmol/L Normal 133-145 [facility] Comment on above: Performed By: #### L 300.3900 #### [facility] [address] [place], [address] T PROT 6.9 g/dL Normal 5.9-8.4 [facility] Comment on above: Performed By: #### L 300.3900 #### [facility] [address] [place], [address] Urea nitrogen [Mass/Vol] 21 mg/dL High 4-19 [facility] Comment on above: Performed By: #### L 300.3900 #### [facility] [address] [place], [address] Eosinophil percentageOrdered By: Dinah Fernandez on 03-05-2025 Eosinophils/100 WBC (Bld) 2.7 % 0-5 [facility] Erythrocyte distribution wid th ratioOrdered By: Dinah Fernandez on 04-23-2024 Erythrocyte distribution width (RBC) [Ratio] 14.3 % 11.6-14.6 [facility] Erythrocyte distribution wid th standard deviationOrdered By: Dinah Fernandez on 04-23-2024 Erythrocyte distribution width (RBC) [Entitic vol] 48.3 fL High 35.1-43.9 [facility] Erythrocyte distribution width (RBC) [Ratio] 48.3 fl High 35.1-43.9 [facility] GFR/1.73 sq M.predicted gilson g non-blacks MDRD (S/P/Bld) [Vol rate/Area]Ordered By: Dinah Fernandez on 04-23-2024 Estimated GFR (MDRD) Non-Af Amer 65 >60 [facility] Comment on above: mL/min/1.73m2 CKD-EP I Creatinine Equation (2020) Glomerular filtration rate ( GFR) estimation/1.73 sq m using serum, plasma, or whole bOrdered By: Dinah Fernandez on 04-23-2024 GFR/1.73 sq M.predicted among non-blacks MDRD (S/P/Bld) [Vol rate/Area] 65 mL/min/{1.73_m2} >60 [facility] Comment on above: mL/min/1.73m2 CKD-EP I Creatinine Equation (2020) Hematocrit Auto (Bld) [Volum e fraction]Ordered By: Dinah Fernandez on 04-23-2024 Hematocrit (Bld) [Volume fraction] 44.0 % 37-47 [facility] Hemoglobin measurementOrdere d By: Dinah Fernandez on 04-23-2024 Hemoglobin (Bld) [Mass/Vol] 13.7 g/dL 12.0-15.0 [facility] Immature granulocytes/100 WB C Auto (Bld)Ordered By: Dinah Fernandez on 04-23-2024 Immature granulocytes/100 WBC (Bld) 0.200 % 0.0-0.9 [facility] Comment on above: IG% - Immature Granu locytes (promyelocytes, myelocytes and metamyelocytes) > 1% indicates that a LEFT SHIFT is Present. Laboratory - Chemistry and C hemistry - challengeOrdered By: Dinah Fernandez on 04-23-2024 AST [Catalytic activity/Vol] 24 U/L <32 [facility] Lymphocytes Auto (Unsp spec) [#/Vol]Ordered By: Dinah Fernandez on 04-23-2024 Lymphocytes (Bld) [#/Vol] 2.54 10*3/uL 0.83-4.51 [facility] Lymphocytes/100 WBC Auto (Un sp spec)Ordered By: Dinah Fernandez on 04-23-2024 Lymphocytes/100 WBC (Bld) 43.0 % High 19-41 [facility] MCV (mean corpuscular volume ) determinationOrdered By: Dinah Fernandez on 04-23-2024 MCV (RBC) [Entitic vol] 92.6 fL 81-99 [facility] Mean corpuscular hemoglobin (MCH) determinationOrdered By: Dinah Fernandez on 04-23-2024 MCH (RBC) [Entitic mass] 28.8 pg 27.0-32.0 [facility] Mean corpuscular hemoglobin concentration (MCHC) determinationOrdered By: Dinah Fernandez on 04-23-2024 MCHC (RBC) [Mass/Vol] 31.1 g/dL Low 32-36 [facility] Mean platelet volume determi nationOrdered By: Dinah Fernandez on 04-23-2024 Platelet mean volume (Bld) [Entitic vol] 9.7 fL 6.2-12.0 [facility] Monocyte percentageOrdered B y: Dinah Fernandez on 04-23-2024 Monocytes/100 WBC (Bld) 9.1 % 0-10 [facility] Neutrophil percentageOrdered By: Dinah Fernandez on 04-23-2024 Neutrophils/100 WBC (Bld) 43.8 % Low 47-70 [facility] Nucleated red blood cell per centageOrdered By: Dinah Fernandez on 04-23-2024 Nucleated RBC/100 WBC (Bld) [Ratio] 0 % 0-5 [facility] Platelet countOrdered By: Ezequiel Fernandez on 04-23-2024 Platelets (Bld) [#/Vol] 250 10*3/uL 150-450 [facility] Potassium (Unsp spec) [Mass/ Vol]Ordered By: Dinah Fernandez on 04-23-2024 Potassium [Moles/Vol] 4.0 mmol/L 3.3-5.1 [facility] Potassium measurement (mass/ volume)Ordered By: Dinah Fernandez on 04-23-2024 Potassium (Unsp spec) [Mass/Vol] 4.0 mmol/L 3.3-5.1 [facility] RBC Auto (Bld) [#/Vol]Ordere d By: Dinah Fernandez on 04-23-2024 RBC (Bld) [#/Vol] 4.75 10*6/uL 4.2-5.4 [facility] Serum creatinine measurement (mass/volume)Ordered By: Dinah Fernandez on 04-23-2024 Creatinine [Mass/Vol] 0.93 mg/dL 0.70-1.20 [facility] Serum globulin measurementOr dered By: Dinah Fernandez on 04-23-2024 Globulin (S) [Mass/Vol] 3.1 g/dL 2.2-4.2 [facility] Serum glucose measurement (m ass/volume)Ordered By: Dinah Fernandez on 04-23-2024 Glucose [Mass/Vol] 90 mg/dL 70-99 [facility] Serum or plasma alanine vargas otransferase (ALT) measurementOrdered By: Dinah Fernandez on 04-23-2024 ALT [Catalytic activity/Vol] 26 U/L <35 [facility] Serum or plasma albumin john urement (mass/volume)Ordered By: Dinah Fernandez on 04-23-2024 Albumin [Mass/Vol] 3.8 g/dL 3.4-4.8 [facility] Serum or plasma albumin/glob ulin mass ratioOrdered By: Dinah Fernandez on 04-23-2024 Albumin/Globulin [Mass ratio] 1.2 {ratio} 0.9-2.4 [facility] Serum or plasma alkaline bao sphatase measurementOrdered By: Dinah Fernandez on 04-23-2024 ALP [Catalytic activity/Vol] 67 U/L 35-104 [facility] Serum or plasma calcium john urement (mass/volume)Ordered By: Dinah Fernandez on 04-23-2024 Calcium [Mass/Vol] 8.9 mg/dL 7.6-11.0 [facility] Serum or plasma urea nitroge n measurement (mass/volume)Ordered By: Dinah Fernandez on 04-23-2024 Urea nitrogen [Mass/Vol] 21 mg/dL High 4-19 [facility] Sodium levelOrdered By: Nazario Fernandez on 04-23-2024 Sodium [Moles/Vol] 142 mmol/L 133-145 [facility] Total proteinOrdered By: Roxanne Fernandez on 04-23-2024 Protein [Mass/Vol] 6.9 g/dL 5.9-8.4 [facility] White blood cell (WBC) count Ordered By: Dinah Fernandez on 04-23-2024 WBC (Bld) [#/Vol] 5.9 10*3/uL 4.4-11.0 [facility] International normalized rat io (INR) calculationOrdered By: Lissette Griffin on 04-17-2024 INR Coag (Bld) [Relative time] 1.9 {INR} [facility] Prothrombin Time w/INRon INR Coag (PPP) [Relative time] 1.9 {INR} Normal [facility] Comment on above: Performed By: #### L 300.3900 #### [facility] [address] [place], [place], [id number] PT Coag (PPP) [Time] 22.3 s High 11.7-14.9 [facility] [facility] Comment on above: Performed By: #### L 300.3900 #### [facility] [address] [place], [place], [id number] Prothrombin timeOrdered By: Lissette Griffin on 04-17-2024 PT Coag (PPP) [Time] 22.3 s High 11.7-14.9 [facility] Gastroenterology Visit Repor ton 04-03-2024 Gastroenterology Visit Report [facility] [address] [place] [address] OFFICE VISIT Date of Service: 04/03/24 MR#: [id number] Acct: [id number] Name: IRIS BLUM Rep #: [id number] : 1950 Provider: EZEQUIEL Field Age/Sex: 73/F Location: [email or web address] Status: Signed Intake Vital Signs 12/09/23 16:42 Height 5 ft 3 in Intake Visit Reasons: Pre Colon Chief Complaint: colonscopy [employer] Required: No Is patient in pain?: No Allergies adhesive tape Allergy (Verified 12/09/23 16:45) Rash codeine Allergy (Verified 12/09/23 16:45) Hives Opioids - Morphine Analogues Allergy (Verified 12/09/23 16:45) Hives fosinopril (From Monopril) Adverse Reaction (Verified 12/09/23 16:45) severe cough Medications ???Medication ???Instructions ???Recorded ???Confirmed ???Type fluticasone propionate 50 1 spray NASAL DAILY allergies 11/1904/03/24 History mcg/actuation nasal spray,suspension levothyroxine 175 mcg tablet 175 mcg PO DAILY thyroid 11/29/15 04/03/24 History loperamide 2 mg capsule 2 mg PO DAILY PRN Diarrhea 6 04/03/24 History pantoprazole 40 mg tablet,delayed 40 mg PO DAILY reflux 11/29/15 History release albuterol sulfate 90 mcg/actuation 2 puff inhalation Q6H PRN PRN 04/03/24 History aerosol inhaler Asthma duloxetine 60 mg capsule,delayed 60 mg PO DAILY mental health 12/1204/03/24 History release adalimumab 40 mg/0.8 mL 40 mg subcut FR infection 09/29/20 04/03/24 History subcutaneous syringe kit amitriptyline 100 mg tablet 150 mg PO QHS sleep 09/29/2004/03 History gabapentin 300 mg capsule 300 mg PO BID nerve pain 09/30/20 04/03/24 History multivitamin 1 tab PO DAILY vitamin 09/30/20 History prednisone 10 mg tablet 10 mg PO DAILY PRN RA flair 04/03/24 History montelukast 10 mg tablet 10 mg PO DAILY asthma 08/07/23 History solifenacin 10 mg tablet 10 mg PO DAILY rheumatiod 08/07/23 04/03/24 History tramadol 50 mg tablet 50 mg PO TID PRN PRN pain 08/07/23 04/03/24 History triamterene 37.5 1 cap PO DAILY BP 08/07/23 5 History mg-hydrochlorothiazide 25 mg capsule amiodarone 200 mg tablet 200 mg PO DAILY #90 tabs 08/22/23 04/03/24 Rx metoprolol tartrate 50 mg tablet 50 mg PO BID #180 tabs 10/31/23 Rx colestipol 1 gram tablet 1 g PO QDAY #60 tabs 04/03/2403/22 Rx Patient : No Have you fallen in the past year?: Yes Nurse's Note: OV 04.03.24 Pt here to establish care with [facility]. Pt would like a colonoscopy. Pt reports watery diarrhea several times a day. Prior hx of colonoscopy and EGD approx 5 years ago. Pt takes pantoprazole and prednisone daily. Humira weekly and Loperamide PRN. [facility] Medical History Contact with and (suspected) exposure to other viral communicable diseases History of DVT (deep vein thrombosis) SVT (supraventricular tachycardia) Essential hypertension Wound infection after surgery Depression Hypothyroidism Vitamin B12 deficiency Vitamin D deficiency Insomnia Allergic rhinitis GERD (gastroesophageal reflux disease) Morbid obesity Right rotator cuff tear Rheumatoid arthritis Surgical History History of bilateral cataract extraction History of cholecystectomy Hx of gastric bypass Encounter for incision and drainage procedure Status post reverse total replacement of right shoulder S/P rotator cuff repair H/O: hysterectomy Family History Brother Colon cancer Lung cancer Mother Hypertension Thyroid disorder Father Ulcer Lung cancer Social History Smoking Status: Never smoker second hand exposure: No alcohol intake: never substance use type: does not use caffeine: Yes seatbelt use: always HPI HPI Chief Complaint: colonscopy Details: IRIS BLUM, is a 73 F who presents to the office today for establishment with [facility]. Pt is here today to be scheduled for a screening colonoscopy. Pt has a PMHx of radiation to the [facility] for uterine cancer in 1989, gastric bypass and cholecystectomy. Pt has been experiencing chronic diarrhea since her radiation and feels it is related. Pt has seen Dr. Malone in the past but has never had any treatment for diarrhea besides PRN loperamide. Last colonoscopy was 5 years ago. She is unsure about the findings. She takes PPI daily but only has heartburn on occasion. ROS Const Constitutional: Positive for fatigue, frequent falls, headache(s) and weakness; No fever(s) or weight change ENT ENT: Positive for headache(s); No difficulty swallowing Cardio Car (more content not included)... Normal [facility] Prothrombin Time w/INRon INR Coag (PPP) [Relative time] 2.3 {INR} Normal [facility] Comment on above: Performed By: #### L 300.3900 #### [facility] [address] [place], [place], [phone] (703 PT Coag (PPP) [Time] 26.1 s High 11.7-14.9 [facility] Comment on above: Performed By: #### L 300.3900 #### [facility] [address] [place], [place], [id number] International normalized rat io (INR) calculationOrdered By: Lissette Griffin on 03-14-2024 INR Coag (Bld) [Relative time] 3.3 {INR} [facility] Prothrombin Time w/INRon INR Coag (PPP) [Relative time] 3.3 {INR} Normal [facility] Comment on above: Performed By: #### L 300.3900 #### [facility] [address] [place], [place], [phone] (207 PT Coag (PPP) [Time] 34.5 s High 11.7-14.9 [facility] Comment on above: Performed By: #### L 300.3900 #### [facility] [address] [place], [place], [id number] Prothrombin timeOrdered By: Lissette Griffin on 03-14-2024 PT Coag (PPP) [Time] 34.5 s High 11.7-14.9 [facility] International normalized rat io (INR) calculationOrdered By: Lissette Griffin on 02-15-2024 INR Coag (Bld) [Relative time] 2.1 {INR} [facility] Prothrombin Time w/INRon INR Coag (PPP) [Relative time] 2.1 {INR} Normal [facility] Comment on above: Performed By: #### L 300.3900 #### [facility] [address] [place], [address] PT Coag (PPP) [Time] 23.6 s High 11.7-14.9 [facility] Comment on above: Performed By: #### L 300.3900 #### [facility] [address] [place], [place], [phone] ([address] Prothrombin timeOrdered By: Lissette Griffin on 02-15-2024 PT Coag (PPP) [Time] 23.6 s High 11.7-14.9 [facility] Prothrombin Time w/INRon INR Coag (PPP) [Relative time] 1.5 {INR} Normal [facility] Comment on above: Performed By: #### L 9200.0000 #### [facility] [address] [place], [address] PT Coag (PPP) [Time] 17.9 s High 11.7-14.9 [facility] Comment on above: Performed By: #### L 9200.0000 #### [facility] [address] [facility] [place], [address] (550 Absolute neutrophil countOrd ered By: David Chambers on 01-23-2024 Neutrophils (Bld) [#/Vol] 2.9 10*3/uL 2.0-7.7 [facility] Albumin to globulin ratioOrd ered By: David Chambers on 01-23-2024 Albumin/Globulin [Mass ratio] 0.8 {ratio} Low 0.9-2.4 [facility] Basophil percentageOrdered B y: David Chambers on 01-23-2024 Basophils/100 WBC (Bld) 1.3 % High 0-1 [facility] Bilirubin, totalOrdered By: David Chambers on 01-23-2024 Bilirubin [Mass/Vol] 0.40 mg/dL 0.20-1.00 [facility] Comment on above: For patients on eltr ombopag therapy, use of Dimension Mertens TBIL is not recommended. Blood urea nitrogen (BUN)/cr eatinine ratioOrdered By: David Chambers on 01-23-2024 Urea nitrogen/Creatinine [Mass ratio] 21.4 mg/mg High 10-20 [facility] CBC W/Diff, Automatedon 12-0 Absolute Lymph 2.71 X10 3/uL Normal 0.83-4.51 [facility] Comment on above: Performed By: #### L 9200.0000 #### [facility] [address] [place], [address] Absolute Neut 2.9 X10 3/uL Normal 2.0-7.7 [facility] Comment on above: Performed By: #### L 9200.0000 #### [facility] [address] [place], [address] Basophils/100 WBC (Bld) 1.3 % High 0-1 [facility] Comment on above: Performed By: #### L 9200.0000 #### [facility] [address] [place], [address] Eosinophils/100 WBC (Bld) 2.5 % Normal 0-5 [facility] Comment on above: Performed By: #### L 9200.0000 #### [facility] [address] [place], [address] Erythrocyte distribution width (RBC) [Ratio] 15.2 % High 11.6-14.6 [facility] Comment on above: Performed By: #### L 9200.0000 #### [facility] [address] [place], [address] Hematocrit (Bld) [Volume fraction] 44.2 % Normal 37-47 [facility] Comment on above: Performed By: #### L 9200.0000 #### [facility] [address] [place], [address] Hemoglobin (Bld) [Mass/Vol] 14.0 g/dL Normal 12.0-15.0 [facility] Comment on above: Performed By: #### L 9200.0000 #### [facility] [address] [place], [address] IG% 0.200 Normal 0.0-0.9 [facility] Comment on above: Result Comment: IG% - Immature Granulocytes (promyelocytes, myelocytes and metamyelocytes) > 1% indicates that a LEFT SHIFT is Present. Performed By: #### L 9200.0000 #### [facility] [address] [place], [address] Lymphocytes/100 WBC (Bld) 42.6 % High 19-41 [facility] Comment on above: Performed By: #### L 9200.0000 #### [facility] [address] [place], [address] MCH (RBC) [Entitic mass] 29.4 pg Normal 27.0-32.0 [facility] Comment on above: Performed By: #### L 9200.0000 #### [facility] [address] [place], [address] MCHC (RBC) [Mass/Vol] 31.7 g/dL Low 32-36 [facility] Comment on above: Performed By: #### L 9200.0000 #### [facility] [address] [place], [address] MCV (RBC) [Entitic vol] 92.7 fL Normal 81-99 [facility] Comment on above: Performed By: #### L 9200.0000 #### [facility] [address] [place], [address] Monocytes/100 WBC (Bld) 7.7 % Normal 0-10 [facility] Comment on above: Performed By: #### L 9200.0000 #### [facility] [address] [place], [address] Neutrophils/100 WBC (Bld) 45.7 % Low 47-70 [facility] Comment on above: Performed By: #### L 9200.0000 #### [facility] [address] [place], [address] Nucleated RBC (Bld) [#/Vol] 0 10*3/uL Normal 0-5 [facility] Comment on above: Performed By: #### L 9200.0000 #### [facility] [address] [place], [address] Platelet mean volume (Bld) [Entitic vol] 10.1 fL Normal 6.2-12.0 [facility] Comment on above: Performed By: #### L 9200.0000 #### [facility] [address] [place], [address] Platelets (Bld) [#/Vol] 282 10*3/uL Normal 150-450 [facility] Comment on above: Performed By: #### L 9200.0000 #### [facility] [address] [place], [address] RBC (Bld) [#/Vol] 4.77 10*6/uL Normal 4.2-5.4 [facility] Comment on above: Performed By: #### L 9200.0000 #### [facility] [address] [place], [address] RDW SD 52.6 fl High 35.1-43.9 [facility] Comment on above: Performed By: #### L 9200.0000 #### [facility] [address] [place], [address] WBC (Bld) [#/Vol] 6.4 10*3/uL Normal 4.4-11.0 [facility] Comment on above: Performed By: #### L 9200.0000 #### [facility] [address] [place], [address] Carbon dioxide measurementOr dered By: David Chambers on 01-23-2024 CO2 [Moles/Vol] 24.0 mmol/L 21.0-32.0 [facility] Chloride measurementOrdered By: David Chambers on 01-23-2024 Chloride [Moles/Vol] 106 mmol/L 98-107 [facility] Comprehensive Metabolic Prof ilon 01-23-2024 Albumin [Mass/Vol] 3.2 g/dL Normal 3.2-5.0 [facility] Comment on above: Performed By: #### L 9200.0000 #### [facility] [address] [place], [address] Albumin/Globulin [Mass ratio] 0.8 {ratio} Low 0.9-2.4 [facility] Comment on above: Performed By: #### L 9200.0000 #### [facility] [address] [place], [address] ALK P 62 U/L Normal 45-117 [facility] Comment on above: Performed By: #### L 9200.0000 #### [facility] [address] [place], [address] ALT [Catalytic activity/Vol] 41 U/L Normal 13-56 [facility] Comment on above: Performed By: #### L 9200.0000 #### [facility] [address] [place], [address] AST [Catalytic activity/Vol] 29 U/L Normal 15-37 [facility] Comment on above: Performed By: #### L 9200.0000 #### [facility] [address] [place], [address] Bilirubin [Mass/Vol] 0.40 mg/dL Normal 0.20-1.00 [facility] Comment on above: Result Comment: For patients on eltrombopag therapy, use of Dimension Mertens TBIL is not recommended. Performed By: #### L 9200.0000 #### [facility] [address] [place], [address] BUN/CRE 21.4 RATIO High 10-20 [facility] Comment on above: Performed By: #### L 9200.0000 #### [facility] [address] [place], [address] CA,Total 9.1 mg/dL Normal 8.5-10.1 [facility] Comment on above: Performed By: #### L 9200.0000 #### [facility] [address] [place], [address] Chloride [Moles/Vol] 106 mmol/L Normal 98-107 [facility] Comment on above: Performed By: #### L 9200.0000 #### [facility] [address] [place], [address] CO2 [Moles/Vol] 24.0 mmol/L Normal 21.0-32.0 [facility] Comment on above: Performed By: #### L 9200.0000 #### [facility] [address] [place], [address] Creatinine [Mass/Vol] 1.03 mg/dL High 0.55-1.02 [facility] Comment on above: Result Comment: The validity of the calculated GFR GFRAA in patients over 70 years has not been determined. Clinical correlation is essential. Performed By: #### L 9200.0000 #### [facility] [address] [place], [address] EST GFR - AA 68 mL/min Normal >60 [facility] Comment on above: Result Comment: Afri can English GFR Calc Performed By: #### L 9200.0000 #### [facility] [address] [place], [address] GAP 8 Normal 5-15 [facility] Comment on above: Performed By: #### L 9200.0000 #### [facility] [address] [place], [address] GFR/1.73 sq M.predicted among non-blacks MDRD (S/P/Bld) [Vol rate/Area] 56 mL/min/{1.73_m2} Low >60 [facility] Comment on above: Result Comment: Non- GFR Calc Performed By: #### L 9200.0000 #### [facility] [address] [place], [address] Globulin (S) [Mass/Vol] 4.0 g/dL Normal 2.2-4.2 [facility] Comment on above: Performed By: #### L 9200.0000 #### [facility] [address] [place], [address] Glucose [Mass/Vol] 91 mg/dL Normal 74-106 [facility] Comment on above: Performed By: #### L 9200.0000 #### [facility] [address] [place], [address] Potassium [Moles/Vol] 4.0 mmol/L Normal 3.5-5.1 [facility] Comment on above: Performed By: #### L 9200.0000 #### [facility] [address] [place], [address] Sodium [Moles/Vol] 138 mmol/L Normal 136-145 [facility] Comment on above: Performed By: #### L 9200.0000 #### [facility] [address] [place], [place], [id number] T PROT 7.2 g/dL Normal 6.4-8.2 [facility] Comment on above: Performed By: #### L 9200.0000 #### [facility] [address] [place], [place], [id number] Urea nitrogen [Mass/Vol] 22 mg/dL High 7-18 [facility] Comment on above: Performed By: #### L 9200.0000 #### [facility] [address] [place], [place], [id number] Eosinophil percentageOrdered By: David Chambers on 01-23-2024 Eosinophils/100 WBC (Bld) 2.5 % 0-5 [facility] Erythrocyte distribution wid th ratioOrdered By: David Chambers on 01-23-2024 Erythrocyte distribution width (RBC) [Ratio] 15.2 % High 11.6-14.6 [facility] Erythrocyte distribution wid th standard deviationOrdered By: David Chambers on 01-23-2024 Erythrocyte distribution width (RBC) [Entitic vol] 52.6 fL High 35.1-43.9 [facility] Estimated glomerular filtrat ion rate (GFR) AmericanOrdered By: David Chambers on 01-23-2024 Estimated GFR (MDRD) Amer 68 mL/min >60 [facility] Comment on above: GFR Calc Glomerular filtration rate ( GFR) estimationOrdered By: David Chambers on 01-23-2024 Estimated GFR (MDRD) Non-Af Amer 56 mL/min Low >60 [facility] Comment on above: Non- GFR Calc Glucose measurementOrdered B y: David Chambers on 01-23-2024 Glucose [Mass/Vol] 91 mg/dL 74-106 [facility] Hematocrit Auto (Bld) [Volum e fraction]Ordered By: David Chambers on 01-23-2024 Hematocrit (Bld) [Volume fraction] 44.2 % 37-47 [facility] Hemoglobin measurementOrdere d By: David Chambers on 01-23-2024 Hemoglobin (Bld) [Mass/Vol] 14.0 g/dL 12.0-15.0 [facility] High density lipoprotein (HD L) measurementOrdered By: David Chambers on 01-23-2024 Cholesterol in HDL [Mass/Vol] 50 mg/dL >40 [facility] Comment on above: The drugs N-Acetylcy steine and Metamizole may falsely depress this assay. Reference Range HDL <40 mg/dL Low HDL Cholesterol HDL >or= 60 mg/dL High HDL Cholesterol Immature granulocytes/100 WB C Auto (Bld)Ordered By: David Chambers on 01-23-2024 Immature granulocytes/100 WBC (Bld) 0.200 % 0.0-0.9 [facility] Comment on above: IG% - Immature Granu locytes (promyelocytes, myelocytes and metamyelocytes) > 1% indicates that a LEFT SHIFT is Present. Laboratory - Chemistry and C hemistry - challengeOrdered By: David Chambers on 01-23-2024 AST [Catalytic activity/Vol] 29 U/L 15-37 [facility] Lipid Profileon 01-23-2024 Cholesterol [Mass/Vol] 140 mg/dL Normal [address] [facility] Comment on above: Result Comment: <200 mg/dL Desirable 200-240 mg/dL Borderline >240 mg/dL High Risk Performed By: #### L 400.0001, #### [facility] [address] [place], [address] Cholesterol in HDL [Mass/Vol] 50 mg/dL Normal [facility] Comment on above: Result Comment: The drugs N-Acetylcysteine and Metamizole may falsely depress this assay. Reference Range HDL <40 mg/dL Low HDL Cholesterol HDL >or= 60 mg/dL High HDL Cholesterol Performed By: #### L 400.0001, #### [facility] [address] [place], [address] Cholesterol in LDL [Mass/Vol] 53 mg/dL Normal 0-130 [facility] Comment on above: Performed By: #### L 400.0001, #### [facility] [address] [place], [address] Cholesterol in VLDL [Mass/Vol] 37 mg/dL Normal 5-40 [facility] Comment on above: Performed By: #### L 400.0001, #### [facility] [address] [place], [address] Triglyceride [Mass/Vol] 187 mg/dL Normal [facility] Comment on above: Result Comment: The drugs N-Acetylcysteine and Metamizole may falsely depress this assay. Serum Triglycerides Reference Interval Normal <150 mg/dL Borderline high 150 - 199 mg/dL High 200 - 499 mg/dL Very High > or = 500 mg/dL Performed By: #### L 400.0001, #### [facility] [address] [place], [address] Low density lipoprotein (LDL ) cholesterol measurementOrdered By: David Chambers on 01-23-2024 Cholesterol in LDL [Mass/Vol] 53 mg/dL 0-130 [facility] Lymphocytes Auto (Unsp spec) [#/Vol]Ordered By: David Chambers on 01-23-2024 Lymphocytes (Bld) [#/Vol] 2.71 10*3/uL 0.83-4.51 [facility] Lymphocytes/100 WBC Auto (Un sp spec)Ordered By: David Chambers on 01-23-2024 Lymphocytes/100 WBC (Bld) 42.6 % High 19-41 [facility] MCV (mean corpuscular volume ) determinationOrdered By: David Chambers on 01-23-2024 MCV (RBC) [Entitic vol] 92.7 fL 81-99 [facility] Mean corpuscular hemoglobin (MCH) determinationOrdered By: David Chambers on 01-23-2024 MCH (RBC) [Entitic mass] 29.4 pg 27.0-32.0 [facility] Mean corpuscular hemoglobin concentration (MCHC) determinationOrdered By: David Chambers on 01-23-2024 MCHC (RBC) [Mass/Vol] 31.7 g/dL Low 32-36 [facility] Mean platelet volume determi nationOrdered By: David Chambers on 01-23-2024 Platelet mean volume (Bld) [Entitic vol] 10.1 fL 6.2-12.0 [facility] Monocyte percentageOrdered B y: David Chambers on 01-23-2024 Monocytes/100 WBC (Bld) 7.7 % 0-10 [facility] Neutrophil percentageOrdered By: David Chambers on 01-23-2024 Neutrophils/100 WBC (Bld) 45.7 % Low 47-70 [facility] Nucleated red blood cell per centageOrdered By: David Chambers on 01-23-2024 Nucleated RBC/100 WBC (Bld) [Ratio] 0 % 0-5 [facility] Platelet countOrdered By: Ezequiel Chambers on 01-23-2024 Platelets (Bld) [#/Vol] 282 10*3/uL 150-450 [facility] Potassium measurementOrdered By: David Chambers on 01-23-2024 Potassium [Moles/Vol] 4.0 mmol/L 3.5-5.1 [facility] RBC Auto (Bld) [#/Vol]Ordere d By: David Chambers on 01-23-2024 RBC (Bld) [#/Vol] 4.77 10*6/uL 4.2-5.4 [facility] Serum anion gap measurementO rdered By: David Chambers on 01-23-2024 Anion gap [Moles/Vol] 8 mmol/L 5-15 [facility] Serum globulin measurementOr dered By: David Chambers on 01-23-2024 Globulin (S) [Mass/Vol] 4.0 g/dL 2.2-4.2 [facility] Serum or plasma alanine vargas otransferase (ALT) measurementOrdered By: David Chambers on 01-23-2024 ALT [Catalytic activity/Vol] 41 U/L 13-56 [facility] Serum or plasma albumin john urement (mass/volume)Ordered By: David Chambers on 01-23-2024 Albumin [Mass/Vol] 3.2 g/dL 3.2-5.0 [facility] Serum or plasma alkaline bao sphatase measurementOrdered By: David Chambers on 01-23-2024 ALP [Catalytic activity/Vol] 62 U/L 45-117 [facility] Serum or plasma calcium john urement (mass/volume)Ordered By: David Chambers on 01-23-2024 Calcium [Mass/Vol] 9.1 mg/dL 8.5-10.1 [facility] Serum or plasma cholesterol measurement (mass/volume)Ordered By: David Chambers on 01-23-2024 Cholesterol [Mass/Vol] 140 mg/dL <[address] [facility] Comment on above: <200 mg/dL Desirable 200-240 mg/dL Borderline >240 mg/dL High Risk Serum or plasma creatinine m easurement (mass/volume)Ordered By: David Chambers on 01-23-2024 Creatinine [Mass/Vol] 1.03 mg/dL High 0.55-1.02 [facility] Comment on above: The validity of the calculated GFR & GFRAA in patients over 70 years has not been determined. Clinical correlation is essential. Serum or plasma urea nitroge n measurement (mass/volume)Ordered By: David Chambers on 01-23-2024 Urea nitrogen [Mass/Vol] 22 mg/dL High 7-18 [facility] Sodium levelOrdered By: David Chambers on 01-23-2024 Sodium [Moles/Vol] 138 mmol/L 136-145 [facility] TSH QnOrdered By: David faith on 01-23-2024 Thyroid Stimulating Hormone (TSH) 4.230 uIU/mL High 0.358-3.74 0 [facility] Thyroid Stim Hormone (TSH)on 01-23-2024 TSH 4.230 uIU/mL High 0.358-3.74 0 [facility] Comment on above: Performed By: #### L 400.0001, M100.2200 #### [facility] [address] [place] [address]. [place], [address] Total proteinOrdered By: Jazlyn Chambers on 01-23-2024 Protein [Mass/Vol] 7.2 g/dL 6.4-8.2 [facility] Triglycerides measurementOrd ered By: David Chambers on 01-23-2024 Triglyceride [Mass/Vol] 187 mg/dL <199 [facility] Comment on above: The drugs N-Acetylcy steine and Metamizole may falsely depress this assay.Serum Triglycerides Reference Interval Normal <150 mg/dL Borderline high 150 - 199 mg/dL High 200 - 499 mg/dL Very High > or = 500 mg/dL Very low density lipoprotein (VLDL) cholesterol measurementOrdered By: David Chambers on 01-23-2024 VLDL Cholesterol 37 mg/dL 5-40 [facility] White blood cell (WBC) count Ordered By: David Chambers on 01-23-2024 WBC (Bld) [#/Vol] 6.4 10*3/uL 4.4-11.0 [facility] Basic Metabolic Profile (BMP )on 01-09-2024 BUN/CRE 16.6 RATIO Normal - [facility] Comment on above: Performed By: #### L 300.3900 #### [facility] [address] [place], [address] CA,Total 8.9 mg/dL Normal 8.5-10.1 [facility] Comment on above: Performed By: #### L 300.3900 #### [facility] [address] [place], [address] Chloride [Moles/Vol] 108 mmol/L High 98-107 [facility] Comment on above: Performed By: #### L [id number] #### [facility] [address] [place], [address] CO2 [Moles/Vol] 27.0 mmol/L Normal 21.0-32.0 [facility] Comment on above: Performed By: #### L 300.3900 #### [facility] [address] [place], [address] Creatinine [Mass/Vol] 0.96 mg/dL Normal 0.55-1.02 [facility] Comment on above: Result Comment: The validity of the calculated GFR GFRAA in patients over 70 years has not been determined. Clinical correlation is essential. Performed By: #### L 300.3900 #### [facility] [address] [place], [address] EST GFR - AA 74 mL/min Normal >60 [facility] Comment on above: Result Comment: Afri can English GFR Calc Performed By: #### L 300.3900 #### [facility] [address] [place], [address] GAP 4 Low 5-15 [facility] Comment on above: Performed By: #### L [id number] #### [facility] [address] [place], [address] GFR/1.73 sq M.predicted among non-blacks MDRD (S/P/Bld) [Vol rate/Area] 61 mL/min/{1.73_m2} Normal >60 [facility] Comment on above: Result Comment: Non- GFR Calc Performed By: #### L [id number] #### [facility] [address] [place], [address] Glucose [Mass/Vol] 82 mg/dL Normal 74-106 [facility] Comment on above: Performed By: #### L [id number] #### [facility] [address] [place], [address] Potassium [Moles/Vol] 4.1 mmol/L Normal 3.5-5.1 [facility] Comment on above: Performed By: #### L [id number] #### [facility] [address] [place], [address] Sodium [Moles/Vol] 139 mmol/L Normal 136-145 [facility] Comment on above: Performed By: #### L [id number] #### [facility] [address] [place], [address] Urea nitrogen [Mass/Vol] 16 mg/dL Normal 7-18 [facility] Comment on above: Performed By: #### L [id number] #### [facility] [address] [place], [address] Blood urea nitrogen (BUN)/cr eatinine ratioOrdered By: David Chambers on 01-09-2024 Urea nitrogen/Creatinine [Mass ratio] 16.6 mg/mg 12-08 [facility] Carbon dioxide measurementOr dered By: David Chambers on 01-09-2024 CO2 [Moles/Vol] 27.0 mmol/L 21.0-32.0 [facility] Chloride measurementOrdered By: David Chambers on 01-09-2024 Chloride [Moles/Vol] 108 mmol/L High 98-107 [facility] Estimated glomerular filtrat ion rate (GFR) AmericanOrdered By: David Chambers on 01-09-2024 Estimated GFR (MDRD) Amer 74 mL/min >60 [facility] Comment on above: GFR Calc Glomerular filtration rate ( GFR) estimationOrdered By: David Chambers on 01-09-2024 Estimated GFR (MDRD) Non-Af Amer 61 mL/min >60 [facility] Comment on above: Non- GFR Calc Glucose measurementOrdered B y: David Chambers on 01-09-2024 Glucose [Mass/Vol] 82 mg/dL 74-106 [facility] Potassium measurementOrdered By: David Chambers on 01-09-2024 Potassium [Moles/Vol] 4.1 mmol/L 3.5-5.1 [facility] Serum anion gap measurementO rdered By: David Chambers on 01-09-2024 Anion gap [Moles/Vol] 4 mmol/L Low 5-15 [facility] Serum or plasma calcium john urement (mass/volume)Ordered By: David Chambers on 01-09-2024 Calcium [Mass/Vol] 8.9 mg/dL 8.5-10.1 [facility] Serum or plasma creatinine m easurement (mass/volume)Ordered By: David Chambers on 01-09-2024 Creatinine [Mass/Vol] 0.96 mg/dL 0.55-1.02 [facility] Comment on above: The validity of the calculated GFR & GFRAA in patients over 70 years has not been determined. Clinical correlation is essential. Serum or plasma urea nitroge n measurement (mass/volume)Ordered By: David Chambers on 01-09-2024 Urea nitrogen [Mass/Vol] 16 mg/dL 7-18 [facility] Sodium levelOrdered By: David Chambers on 01-09-2024 Sodium [Moles/Vol] 139 mmol/L 136-145 [facility] Absolute lymphocyte countOrd ered By: Dinah Fernandez on 05-01-2023 Lymphocytes Auto (Unsp spec) [#/Vol] 2.92 10*3/uL 0.83-4.51 [facility] Automated lymphocyte count a s percentage of total leukocytesOrdered By: Dinah Fernandez on 05-01-2023 Lymphocytes/100 WBC Auto (Unsp spec) 41.7 % 19-41 [facility] Basophil percentageOrdered B y: Dinah Fernandez on 05-01-2023 Basophils/100 WBC (Bld) 1.3 % 0-1 [facility] Bilirubin [Mass/Vol] 0.50 mg/dL 0.20-1.00 [facility] Comment on above: For patients on eltr ombopag therapy, use of Dimension Mertens TBIL is not recommended. Chloride [Moles/Vol] 108 mmol/L 98-107 [facility] Eosinophils/100 WBC (Bld) 4.4 % 0-5 [facility] Glucose [Mass/Vol] 90 mg/dL 74-106 [facility] Hemoglobin (Bld) [Mass/Vol] 14.4 g/dL 12.0-15.0 [facility] Monocytes/100 WBC (Bld) 7.4 % 0-10 [facility] Neutrophils (Bld) [#/Vol] 3.1 10*3/uL 2.0-7.7 [facility] Neutrophils/100 WBC (Bld) 44.8 % 47-70 [facility] Potassium [Moles/Vol] 4.0 mmol/L 3.5-5.1 [facility] Protein [Mass/Vol] 6.8 g/dL 6.4-8.2 [facility] Sodium [Moles/Vol] 140 mmol/L 136-145 [facility] WBC (Bld) [#/Vol] 7.0 10*3/uL 4.4-11.0 [facility] Determination of erythrocyte mean corpuscular volume (MCV)Ordered By: Dinah Fernandez on 05-01-2023 MCV (RBC) [Entitic vol] 94.2 fL 81-99 [facility] Erythrocyte distribution wid th ratioOrdered By: [facility] Rebecca on 05-01-2023 Erythrocyte distribution width (RBC) [Ratio] 14.3 % 11.6-14.6 [facility] Erythrocyte distribution wid th standard deviationOrdered By: Dinahjacob Fernandez on 05-01-2023 Erythrocyte distribution width (RBC) [Entitic vol] 49.7 fL 35.1-43.9 [facility] Hematocrit Auto (Bld) [Volum e fraction]Ordered By: [facility] Rebecca on 05-01-2023 Hematocrit (Bld) [Volume fraction] 45.4 % 37-47 [facility] Immature granulocytes/100 WB C Auto (Bld)Ordered [facility]: [facility]23 Immature granulocytes/100 WBC (Bld) 0.400 % 0.0-0.9 [facility] Comment on above: IG% - Immature Granu locytes (promyelocytes, myelocytes and metamyelocytes) > 1% indicates that a LEFT SHIFT is Present. Laboratory - Chemistry and C hemistry - challengeOrdered By: [facility] Rebecca on 05-01-2023 Albumin/Globulin [Mass ratio] 0.9 {ratio} 0.9-2.4 [facility] ALP [Catalytic activity/Vol] 61 U/L 45-117 [facility] ALT [Catalytic activity/Vol] 50 U/L 13-56 [facility] CO2 [Moles/Vol] 26.0 mmol/L 21.0-32.0 [facility] Globulin (S) [Mass/Vol] 3.6 g/dL 2.2-4.2 [facility] Urea nitrogen/Creatinine [Mass ratio] 24.0 mg/mg 10-20 [facility] - Hematology and Cell countsOrdered By: Dinahjacob Fernandez on 05-01-2023 MCH (RBC) [Entitic mass] 29.9 pg 27.0-32.0 [facility] MCHC (RBC) [Mass/Vol] 31.7 g/dL 32-36 [facility] Nucleated RBC/100 WBC (Bld) [Ratio] 0 % 0-5 [facility] Platelet mean volume (Bld) [Entitic vol] 10.2 fL 6.2-12.0 [facility] Platelets (Bld) [#/Vol] 274 10*3/uL 150-450 [facility] No Panel InformationOrdered By: Dinah Fernandez on 05-01-2023 Estimated GFR (MDRD) Amer 82 mL/min >60 [facility] Comment on above: GFR Calc Estimated GFR (MDRD) Non-Af Amer 68 mL/min >60 [facility] Comment on above: Non- GFR Calc RBC Auto (Bld) [#/Vol]Ordere d By: Dinah Fernandez on 05-01-2023 RBC (Bld) [#/Vol] 4.82 10*6/uL 4.2-5.4 [facility] Serum or plasma calcium john urement (mass/volume)Ordered By: Dinah Fernandez on 05-01-2023 Calcium [Mass/Vol] 9.1 mg/dL 8.5-10.1 [facility] Serum or plasma creatinine m easurement (mass/volume)Ordered By: Dinah Fernandez on 05-01-2023 Creatinine [Mass/Vol] 0.88 mg/dL 0.55-1.02 [facility] Comment on above: The validity of the calculated GFR & GFRAA in patients over 70 years has not been determined. Clinical correlation is essential. Serum or plasma urea nitroge n measurement (mass/volume)Ordered By: Dinah Fernandez on 05-01-2023 Urea nitrogen [Mass/Vol] 21 mg/dL 7-18 [facility] Thin prep Papanicolaou smear with manual screeningOrdered By: Dinah Fernandez on 05-01-2023 Thin prep Papanicolaou smear with manual screening 3.2 g/dL 3.2-5.0 [facility] Thin prep Papanicolaou smear with manual screening 36 U/L 15-37 [facility] Thin prep Papanicolaou smear with manual screening 6 5-15 [facility] Basophil percentageOrdered B y: David Chambers on 01-26-2023 Chloride [Moles/Vol] 110 mmol/L 98-107 [facility] Cholesterol [Mass/Vol] 149 mg/dL <[address] [facility] Comment on above: <200 mg/dL Desirable 200-240 mg/dL Borderline >240 mg/dL High Risk Glucose [Mass/Vol] 92 mg/dL 74-106 [facility] Potassium [Moles/Vol] 4.9 mmol/L 3.5-5.1 [facility] Comment on above: Slight Hemolysis, Re sult may be falsely increased. Sodium [Moles/Vol] 140 mmol/L 136-145 [facility] Triglyceride [Mass/Vol] 208 mg/dL <199 [facility] Comment on above: The drugs N-Acetylcy steine and Metamizole may falsely depress this assay.Serum Triglycerides Reference Interval Normal <150 mg/dL Borderline high 150 - 199 mg/dL High 200 - 499 mg/dL Very High > or = 500 mg/dL Laboratory - Chemistry and C hemistry - challengeOrdered By: David Chambers on 01-26-2023 CO2 [Moles/Vol] 29.0 mmol/L 21.0-32.0 [facility] Urea nitrogen/Creatinine [Mass ratio] 19.1 mg/mg 10-20 [facility] No Panel InformationOrdered By: David Chambers on 01-26-2023 Estimated GFR (MDRD) Amer 63 mL/min >60 [facility] Comment on above: GFR Calc Estimated GFR (MDRD) Non-Af Amer 52 mL/min >60 [facility] Comment on above: Non- GFR Calc Thyroid Stimulating Hormone (TSH) 3.85 uIU/mL 0.358-3.74 [facility] Serum or plasma calcium john urement (mass/volume)Ordered By: David Chambers on 01-26-2023 Calcium [Mass/Vol] 9.2 mg/dL 8.5-10.1 [facility] Serum or plasma cholesterol in HDL measurement (mass/volume)Ordered By: David Chambers on 01-26-2023 Cholesterol in HDL [Mass/Vol] 42 mg/dL >40 [facility] Comment on above: The drugs N-Acetylcy steine and Metamizole may falsely depress this assay. Reference Range HDL <40 mg/dL Low HDL Cholesterol HDL >or= 60 mg/dL High HDL Cholesterol Serum or plasma cholesterol in VLDL measurement (mass/volume)Ordered By: David Chambers on 01-26-2023 Cholesterol in VLDL [Mass/Vol] 42 mg/dL 5-40 [facility] Serum or plasma creatinine m easurement (mass/volume)Ordered By: David Chambers on 01-26-2023 Creatinine [Mass/Vol] 1.10 mg/dL 0.55-1.02 [facility] Comment on above: The validity of the calculated GFR & GFRAA in patients over 70 years has not been determined. Clinical correlation is essential. Serum or plasma low density lipoprotein (LDL) cholesterol measurement (mass/volume)Ordered By: Dvaid Chambers on 01-26-2023 Cholesterol in LDL [Mass/Vol] 65 mg/dL 0-130 [facility] Serum or plasma urea nitroge n measurement (mass/volume)Ordered By: David Chambers on 01-26-2023 Urea nitrogen [Mass/Vol] 21 mg/dL 7-18 [facility] Thin prep Papanicolaou smear with manual screeningOrdered By: David Chambers on 01-26-2023 Thin prep Papanicolaou smear with manual screening 1 5-15 [facility] Absolute lymphocyte countOrd ered By: Dinah Fernandez on 11-06-2022 Lymphocytes Auto (Unsp spec) [#/Vol] 3.16 10*3/uL 0.83-4.51 [facility] Basophil percentageOrdered B y: Dinah Fernandez on 11-06-2022 Basophils/100 WBC (Bld) 1.2 % 0-1 [facility] Bilirubin [Mass/Vol] 0.40 mg/dL 0.20-1.00 [facility] Comment on above: For patients on eltr ombopag therapy, use of Dimension Mertens TBIL is not recommended. Chloride [Moles/Vol] 106 mmol/L 98-107 [facility] Eosinophils/100 WBC (Bld) 4.6 % 0-5 [facility] Glucose [Mass/Vol] 98 mg/dL 74-106 [facility] Neutrophils (Bld) [#/Vol] 3.2 10*3/uL 2.0-7.7 [facility] Neutrophils/100 WBC (Bld) 44.1 % 47-70 [facility] Potassium [Moles/Vol] 3.8 mmol/L 3.5-5.1 [facility] Protein [Mass/Vol] 6.8 g/dL 6.4-8.2 [facility] Sodium [Moles/Vol] 138 mmol/L 136-145 [facility] WBC (Bld) [#/Vol] 7.3 10*3/uL 4.4-11.0 [facility] Blood erythrocytes count (nu mber/volume)Ordered By: Dinah Fernandez on 11-06-2022 RBC (Bld) [#/Vol] 4.58 10*6/uL 4.2-5.4 [facility] Blood hemoglobin measurement (mass/volume)Ordered By: Dinah Fernandez on 11-06-2022 Hemoglobin (Bld) [Mass/Vol] 13.3 g/dL 12.0-15.0 [facility] Blood lymphocytes/100 leukoc ytesOrdered By: Dinah Fernandez on 11-06-2022 Lymphocytes/100 WBC (Bld) 43.1 % 19-41 [facility] Blood monocytes/100 leukocyt esOrdered By: Dinah Fernandez on 11-06-2022 Monocytes/100 WBC (Bld) 6.7 % 0-10 [facility] Blood platelet mean volumeOr dered By: Dniah Fernandez on 11-06-2022 Platelet mean volume (Bld) [Entitic vol] 9.7 fL 6.2-12.0 [facility] Determination of erythrocyte mean corpuscular volume (MCV)Ordered By: Dinah Fernandez on 11-06-2022 MCV (RBC) [Entitic vol] 93.2 fL 81-99 [facility] Hematocrit Auto (Bld) [Volum e fraction]Ordered By: Dinah Fernandez on 11-06-2022 Hematocrit (Bld) [Volume fraction] 42.7 % 37-47 [facility] - Chemistry and C hemistry - challengeOrdered By: Dinah Fernandez on 11-06-2022 ALP [Catalytic activity/Vol] 72 U/L 45-117 [facility] ALT [Catalytic activity/Vol] 42 U/L 13-56 [facility] CO2 [Moles/Vol] 26.0 mmol/L 21.0-32.0 [facility] Globulin (S) [Mass/Vol] 3.4 g/dL 2.2-4.2 [facility] Urea nitrogen/Creatinine [Mass ratio] 23.6 mg/mg 10-20 [facility] - Hematology and Cell countsOrdered By: Dinah Fernandez on 11-06-2022 Erythrocyte distribution width (RBC) [Entitic vol] 49.1 fL 35.1-43.9 [facility] Erythrocyte distribution width (RBC) [Ratio] 14.2 % 11.6-14.6 [facility] Immature granulocytes/100 WBC (Bld) 0.300 % 0.0-0.9 [facility] Comment on above: IG% - Immature Granu locytes (promyelocytes, myelocytes and metamyelocytes) > 1% indicates that a LEFT SHIFT is Present. MCH (RBC) [Entitic mass] 29.0 pg 27.0-32.0 [facility] Nucleated RBC/100 WBC (Bld) [Ratio] 0 % 0-5 [facility] MCHC Auto (RBC) [Mass/Vol]Or dered By: Dinah Fernandez on 11-06-2022 MCHC (RBC) [Mass/Vol] 31.1 g/dL 32-36 [facility] No Panel InformationOrdered By: Dinah Fernandez on 11-06-2022 Estimated GFR (MDRD) Amer 76 mL/min >60 [facility] Comment on above: GFR Calc Estimated GFR (MDRD) Non-Af Amer 63 mL/min >60 [facility] Comment on above: Non- GFR Calc Platelets bldOrdered By: Roxanne Fernandez on 11-06-2022 Platelets (Bld) [#/Vol] 258 10*3/uL 150-450 [facility] Serum or plasma albumin john urement (mass/volume)Ordered By: Dinah Fernandez on 11-06-2022 Albumin [Mass/Vol] 3.4 g/dL 3.2-5.0 [facility] Serum or plasma albumin/glob ulin mass ratioOrdered By: Dinah Fernandez on 11-06-2022 Albumin/Globulin [Mass ratio] 1.0 {ratio} 0.9-2.4 [facility] Serum or plasma calcium john urement (mass/volume)Ordered By: Dinah Fernandez on 11-06-2022 Calcium [Mass/Vol] 8.6 mg/dL 8.5-10.1 [facility] Serum or plasma creatinine m easurement (mass/volume)Ordered By: Dinah Fernandez on 11-06-2022 Creatinine [Mass/Vol] 0.93 mg/dL 0.55-1.02 [facility] Comment on above: The validity of the calculated GFR & GFRAA in patients over 70 years has not been determined. Clinical correlation is essential. Serum or plasma urea nitroge n measurement (mass/volume)Ordered By: Dinahjacob Fernandez on 11-06-2022 Urea nitrogen [Mass/Vol] 22 mg/dL - [facility] Thin prep Papanicolaou smear with manual screeningOrdered By: [facility] Rebecca on 11-06-2022 Thin prep Papanicolaou smear with manual screening 25 U/L 15-37 [facility] Thin prep Papanicolaou smear with manual screening 6 5-15 [facility] Absolute lymphocyte countOrd ered By: David Chambers on 10-25-2022 Lymphocytes Auto (Unsp spec) [#/Vol] 3.05 10*3/uL 0.83-4.51 [facility] Basophil percentageOrdered B y: David Chambers on 10-25-2022 Basophils/100 WBC (Bld) 1.3 % 0-1 [facility] Bilirubin [Mass/Vol] 0.50 mg/dL 0.20-1.00 [facility] Comment on above: For patients on eltr ombopag therapy, use of Dimension Mertens TBIL is not recommended. Chloride [Moles/Vol] 107 mmol/L 98-107 [facility] Cholesterol [Mass/Vol] 146 mg/dL <[address] [facility] Comment on above: <200 mg/dL Desirable 200-240 mg/dL Borderline >240 mg/dL High Risk Eosinophils/100 WBC (Bld) 3.9 % 0-5 [facility] Glucose [Mass/Vol] 92 mg/dL 74-106 [facility] Neutrophils (Bld) [#/Vol] 2.9 10*3/uL 2.0-7.7 [facility] Neutrophils/100 WBC (Bld) 42.4 % 47-70 [facility] Potassium [Moles/Vol] 4.1 mmol/L 3.5-5.1 [facility] Protein [Mass/Vol] 6.8 g/dL 6.4-8.2 [facility] Sodium [Moles/Vol] 138 mmol/L 136-145 [facility] Triglyceride [Mass/Vol] 217 mg/dL <199 [facility] Comment on above: The drugs N-Acetylcy steine and Metamizole may falsely depress this assay.Serum Triglycerides Reference Interval Normal <150 mg/dL Borderline high 150 - 199 mg/dL High 200 - 499 mg/dL Very High > or = 500 mg/dL WBC (Bld) [#/Vol] 6.7 10*3/uL 4.4-11.0 [facility] Blood erythrocytes count (nu mber/volume)Ordered By: David Chambers on 10-25-2022 RBC (Bld) [#/Vol] 4.68 10*6/uL 4.2-5.4 [facility] Blood hemoglobin measurement (mass/volume)Ordered By: David Chambers on 10-25-2022 Hemoglobin (Bld) [Mass/Vol] 13.8 g/dL 12.0-15.0 [facility] Blood lymphocytes/100 leukoc ytesOrdered By: David Chambers on 10-25-2022 Lymphocytes/100 WBC (Bld) 45.3 % 19-41 [facility] Blood monocytes/100 leukocyt esOrdered By: David Chambers on 10-25-2022 Monocytes/100 WBC (Bld) 7.0 % 0-10 [facility] Blood platelet mean volumeOr dered By: David Chambers on 10-25-2022 Platelet mean volume (Bld) [Entitic vol] 9.8 fL 6.2-12.0 [facility] Determination of erythrocyte mean corpuscular volume (MCV)Ordered By: David Chambers on 10-25-2022 MCV (RBC) [Entitic vol] 92.7 fL 81-99 [facility] Hematocrit Auto (Bld) [Volum e fraction]Ordered By: David Chambers on 10-25-2022 Hematocrit (Bld) [Volume fraction] 43.4 % 37-47 [facility] - Chemistry and C hemistry - challengeOrdered By: David Chambers on 10-25-2022 ALP [Catalytic activity/Vol] 68 U/L 45-117 [facility] ALT [Catalytic activity/Vol] 43 U/L 13-56 [facility] CO2 [Moles/Vol] 25.0 mmol/L 21.0-32.0 [facility] Free T4 [Mass/Vol] 1.30 ng/dL 0.76-1.46 [facility] Globulin (S) [Mass/Vol] 3.6 g/dL 2.2-4.2 [facility] Urea nitrogen/Creatinine [Mass ratio] 22.2 mg/mg 10-20 [facility] - Hematology and Cell countsOrdered By: David Chambers on 10-25-2022 Erythrocyte distribution width (RBC) [Entitic vol] 48.2 fL 35.1-43.9 [facility] Erythrocyte distribution width (RBC) [Ratio] 14.3 % 11.6-14.6 [facility] Immature granulocytes/100 WBC (Bld) 0.100 % 0.0-0.9 [facility] Comment on above: IG% - Immature Granu locytes (promyelocytes, myelocytes and metamyelocytes) > 1% indicates that a LEFT SHIFT is Present. MCH (RBC) [Entitic mass] 29.5 pg 27.0-32.0 [facility] Nucleated RBC/100 WBC (Bld) [Ratio] 0 % 0-5 [facility] MCHC Auto (RBC) [Mass/Vol]Or dered By: David Chambers on 10-25-2022 MCHC (RBC) [Mass/Vol] 31.8 g/dL 32-36 [facility] No Panel InformationOrdered By: David Chambers on 10-25-2022 Estimated GFR (MDRD) Amer 80 mL/min >60 [facility] Comment on above: GFR Calc Estimated GFR (MDRD) Non-Af Amer 66 mL/min >60 [facility] Comment on above: Non- GFR Calc Free Triiodothyronine (T3) pg/dL 2.1 pg/mL 2.18-3.98 [facility] Thyroid Stimulating Hormone (TSH) 2.76 uIU/mL 0.358-3.74 [facility] Platelets bldOrdered By: Jazlyn Chambers on 10-25-2022 Platelets (Bld) [#/Vol] 268 10*3/uL 150-450 [facility] Serum or plasma albumin john urement (mass/volume)Ordered By: David Chambers on 10-25-2022 Albumin [Mass/Vol] 3.2 g/dL 3.2-5.0 [facility] Serum or plasma albumin/glob ulin mass ratioOrdered By: David Chambers on 10-25-2022 Albumin/Globulin [Mass ratio] 0.9 {ratio} 0.9-2.4 [facility] Serum or plasma calcium john urement (mass/volume)Ordered By: David Chambers on 10-25-2022 Calcium [Mass/Vol] 8.8 mg/dL 8.5-10.1 [facility] Serum or plasma cholesterol in HDL measurement (mass/volume)Ordered By: David Chambers on 10-25-2022 Cholesterol in HDL [Mass/Vol] 48 mg/dL >40 [facility] Comment on above: The drugs N-Acetylcy steine and Metamizole may falsely depress this assay. Reference Range HDL <40 mg/dL Low HDL Cholesterol HDL >or= 60 mg/dL High HDL Cholesterol Serum or plasma cholesterol in VLDL measurement (mass/volume)Ordered By: David Chambers on 10-25-2022 Cholesterol in VLDL [Mass/Vol] 43 mg/dL 5-40 [facility] Serum or plasma creatinine m easurement (mass/volume)Ordered By: David Chambers on 10-25-2022 Creatinine [Mass/Vol] 0.90 mg/dL 0.55-1.02 [facility] Comment on above: The validity of the calculated GFR & GFRAA in patients over 70 years has not been determined. Clinical correlation is essential. Serum or plasma low density lipoprotein (LDL) cholesterol measurement (mass/volume)Ordered By: David Chambers on 10-25-2022 Cholesterol in LDL [Mass/Vol] 55 mg/dL 0-130 [facility] Serum or plasma urea nitroge n measurement (mass/volume)Ordered By: David Chambers on 10-25-2022 Urea nitrogen [Mass/Vol] 20 mg/dL 7-18 [facility] Thin prep Papanicolaou smear with manual screeningOrdered By: David Chambers on 10-25-2022 Thin prep Papanicolaou smear with manual screening 28 U/L 15-37 [facility] Thin prep Papanicolaou smear with manual screening 6 5-15 [facility] Culture, urineOrdered By: Donn Alvarez on 06-02-2022 Bacteria identified Cx Nom (U) Presumptive E. coli [facility] Basophil percentageOrdered B y: Anushka Alvarez on 05-31-2022 Basophil percentage 5-10 SEEN /hpf 0-5 [facility] Bilirubin Test strip Ql (U)O rdered By: Anushka Alvarez on 05-31-2022 Bilirubin Ql (U) Negative Negative [facility] Ketones Test strip Ql (U)Ord ered By: Anushka Alvarez on 05-31-2022 Ketones Ql (U) Negative Negative [facility] Mucus LM Ql (Urine sed)Order ed By: Anushka Alvarez on 05-31-2022 Mucus Ql (Urine sed) 0 SEEN /hpf [facility] Nitrite Test strip Ql (U)Ord ered By: Anushka Alvarez on 05-31-2022 Nitrite Ql (U) Negative Negative [facility] Protein Test strip Ql (U)Ord ered By: Anushka Alvarez on 05-31-2022 Protein Ql (U) Negative Negative [facility] Squamous epithelial cells de tection in urine sediment by light microscopyOrdered By: Anushka Alvarez on 05-31-2022 Epithelial cells.squamous LM Ql (Urine sed) 0-5 SEEN /hpf 5-10 [facility] Urine blood detectionOrdered By: Anushka Alvarez on 05-31-2022 RBC Ql (U) Negative Negative [facility] RBC Ql (U) 0 SEEN /hpf 0-5 [facility] Urine clarityOrdered By: Raisa Alvarez on 05-31-2022 Clarity (U) Clear Clear [facility] Urine color determinationOrd ered By: Anushka Alvarez on 05-31-2022 Color (U) Yellow Yellow [facility] Urine glucose detectionOrder ed By: Anushka Alvarez on 05-31-2022 Glucose Ql (U) Normal mg/dl Normal [facility] Urine leukocyte esterase det ection by dipstickOrdered By: Anushka Alvarez on 05-31-2022 Leukocyte esterase Test strip Ql (U) 500 /ul Negative [facility] Urine pHOrdered By: Anushka Alvarez on 05-31-2022 pH (U) 6.0 [pH] 5.0 - 8.0 [facility] Urine sediment bacteria coun t by microscopy (number/high power field)Ordered By: Anushka Alvarez on 05-31-2022 Bacteria LM.HPF (Urine sed) [#/Area] 2 /[HPF] None Seen [facility] Urine specific gravity measu rementOrdered By: Anushka Alvarez on 05-31-2022 Specific gravity (U) [Rel density] 1.010 1.002-1.03 0 [facility] Urobilinogen Auto test strip Ql (U)Ordered By: Anushka Alvarez on 05-31-2022 Urobilinogen Ql (U) Normal mg/dl Normal [facility] Absolute lymphocyte countOrd ered By: Dr. Fernandez on 05-15-2022 Lymphocytes Auto (Unsp spec) [#/Vol] 3.10 10*3/uL 0.83-4.51 [facility] Basophil percentageOrdered B y: Dr. Fernandez on 05-15-2022 Basophils/100 WBC (Bld) 0.8 % 0-1 [facility] Bilirubin [Mass/Vol] 0.40 mg/dL 0.20-1.00 [facility] Comment on above: For patients on eltr ombopag therapy, use of Dimension Mertens TBIL is not recommended. Chloride [Moles/Vol] 110 mmol/L 98-107 [facility] Eosinophils/100 WBC (Bld) 3.0 % 0-5 [facility] Glucose [Mass/Vol] 101 mg/dL 74-106 [facility] Comment on above: Fasting Glucose resu lt from 100 to 125 mg/dL suggests IMPAIRED HOMEOSTASIS per A.D.A. criteria. Neutrophils (Bld) [#/Vol] 3.3 10*3/uL 2.0-7.7 [facility] Neutrophils/100 WBC (Bld) 44.8 % 47-70 [facility] Potassium [Moles/Vol] 4.2 mmol/L 3.5-5.1 [facility] Protein [Mass/Vol] 6.8 g/dL 6.4-8.2 [facility] Sodium [Moles/Vol] 140 mmol/L 136-145 [facility] WBC (Bld) [#/Vol] 7.3 10*3/uL 4.4-11.0 [facility] Blood erythrocytes count (nu mber/volume)Ordered By: Dr. Fernandez on 05-15-2022 RBC (Bld) [#/Vol] 4.67 10*6/uL 4.2-5.4 [facility] Blood hemoglobin measurement (mass/volume)Ordered By: Dr. Fernandez on 05-15-2022 Hemoglobin (Bld) [Mass/Vol] 13.4 g/dL 12.0-15.0 [facility] Blood lymphocytes/100 leukoc ytesOrdered By: Dr. Fernandez on 05-15-2022 Lymphocytes/100 WBC (Bld) 42.6 % 19-41 [facility] Blood monocytes/100 leukocyt esOrdered By: Dr. Fernandez on 05-15-2022 Monocytes/100 WBC (Bld) 8.7 % 0-10 [facility] Blood platelet mean volumeOr dered By: Dr. Fernandez on 05-15-2022 Platelet mean volume (Bld) [Entitic vol] 9.7 fL 6.2-12.0 [facility] Determination of erythrocyte mean corpuscular volume (MCV)Ordered By: Dr. Fernandez on 05-15-2022 MCV (RBC) [Entitic vol] 91.9 fL 81-99 [facility] Hematocrit Auto (Bld) [Volum e fraction]Ordered By: Dr. Fernandez on 05-15-2022 Hematocrit (Bld) [Volume fraction] 42.9 % 37-47 [facility] Laboratory - Chemistry and C hemistry - challengeOrdered By: Dr. Fernandez on 05-15-2022 ALP [Catalytic activity/Vol] 69 U/L 45-117 [facility] ALT [Catalytic activity/Vol] 39 U/L 13-56 [facility] CO2 [Moles/Vol] 27.0 mmol/L 21.0-32.0 [facility] Globulin (S) [Mass/Vol] 3.8 g/dL 2.2-4.2 [facility] Urea nitrogen/Creatinine [Mass ratio] 22.3 mg/mg 10-20 [facility] Laboratory - Hematology and Cell countsOrdered By: Dr. Fernandez on 05-15-2022 Erythrocyte distribution width (RBC) [Entitic vol] 58.6 fL 35.1-43.9 [facility] Erythrocyte distribution width (RBC) [Ratio] 17.3 % 11.6-14.6 [facility] Immature granulocytes/100 WBC (Bld) 0.100 % 0.0-0.9 [facility] Comment on above: IG% - Immature Granu locytes (promyelocytes, myelocytes and metamyelocytes) > 1% indicates that a LEFT SHIFT is Present. MCH (RBC) [Entitic mass] 28.7 pg 27.0-32.0 [facility] Nucleated RBC/100 WBC (Bld) [Ratio] 0 % 0-5 [facility] MCHC Auto (RBC) [Mass/Vol]Or dered By: Dr. Fernandez on 05-15-2022 MCHC (RBC) [Mass/Vol] 31.2 g/dL 32-36 [facility] No Panel InformationOrdered By: Dr. Fernandez on 05-15-2022 Estimated GFR (MDRD) Amer 76 mL/min >60 [facility] Comment on above: GFR Calc Estimated GFR (MDRD) Non-Af Amer 63 mL/min >60 [facility] Comment on above: Non- GFR Calc Platelets bldOrdered By: Dr. Fernandez on 05-15-2022 Platelets (Bld) [#/Vol] 261 10*3/uL 150-450 [facility] Serum or plasma albumin john urement (mass/volume)Ordered By: Dr. Fernandez on 05-15-2022 Albumin [Mass/Vol] 3.0 g/dL 3.2-5.0 [facility] Serum or plasma albumin/glob ulin mass ratioOrdered By: Dr. Fernandez on 05-15-2022 Albumin/Globulin [Mass ratio] 0.8 {ratio} 0.9-2.4 [facility] Serum or plasma calcium john urement (mass/volume)Ordered By: Dr. Fernandez on 05-15-2022 Calcium [Mass/Vol] 8.3 mg/dL 8.5-10.1 [facility] Serum or plasma creatinine m easurement (mass/volume)Ordered By: Dr. Fernandez on 05-15-2022 Creatinine [Mass/Vol] 0.94 mg/dL 0.55-1.02 [facility] Comment on above: The validity of the calculated GFR & GFRAA in patients over 70 years has not been determined. Clinical correlation is essential. Serum or plasma urea nitroge n measurement (mass/volume)Ordered By: Dr. Fernandez on 05-15-2022 Urea nitrogen [Mass/Vol] 21 mg/dL 7-18 [facility] Thin prep Papanicolaou smear with manual screeningOrdered By: Dr. Fernandez on 05-15-2022 Thin prep Papanicolaou smear with manual screening 25 U/L 15-37 [facility] Thin prep Papanicolaou smear with manual screening 3 5-15 [facility] Basophil percentageOrdered B y: Dr. Chambers on 04-26-2022 Chloride [Moles/Vol] 106 mmol/L 98-107 [facility] Cholesterol [Mass/Vol] 125 mg/dL <[address] [facility] Comment on above: <200 mg/dL Desirable 200-240 mg/dL Borderline >240 mg/dL High Risk Glucose [Mass/Vol] 100 mg/dL 74-106 [facility] Comment on above: Fasting Glucose resu lt from 100 to 125 mg/dL suggests IMPAIRED HOMEOSTASIS per A.D.A. criteria. Potassium [Moles/Vol] 3.8 mmol/L 3.5-5.1 [facility] Sodium [Moles/Vol] 138 mmol/L 136-145 [facility] Triglyceride [Mass/Vol] 138 mg/dL <199 [facility] Comment on above: The drugs N-Acetylcy steine and Metamizole may falsely depress this assay.Serum Triglycerides Reference Interval Normal <150 mg/dL Borderline high 150 - 199 mg/dL High 200 - 499 mg/dL Very High > or = 500 mg/dL Laboratory - Chemistry and C hemistry - challengeOrdered By: Dr. Chambers on 04-26-2022 CO2 [Moles/Vol] 26.0 mmol/L 21.0-32.0 [facility] Urea nitrogen/Creatinine [Mass ratio] 23.7 mg/mg 10-20 [facility] No Panel InformationOrdered By: Dr. Chambers on 04-26-2022 Estimated GFR (MDRD) Amer 73 mL/min >60 [facility] Comment on above: GFR Calc Estimated GFR (MDRD) Non-Af Amer 61 mL/min >60 [facility] Comment on above: Non- GFR Calc Vitamin D 25-Hydroxy 28.8 ng/mL [facility] Comment on above: Vitamin D 25(OH) Sta tus Range Deficiency <20 ng/mL (50nmol/L) Insufficiency 20 - 30 ng/mL (50 - 75 nmol/L) Sufficiency 30 - 100 ng/mL (75 - 250 nmol/L) Toxicity >100 ng/mL (>250 nmol/L) Serum or plasma calcium john urement (mass/volume)Ordered By: Dr. Chambers on 04-26-2022 Calcium [Mass/Vol] 9.1 mg/dL 8.5-10.1 [facility] Serum or plasma cholesterol in HDL measurement (mass/volume)Ordered By: Dr. Chambers on 04-26-2022 Cholesterol in HDL [Mass/Vol] 51 mg/dL >40 [facility] Comment on above: The drugs N-Acetylcy steine and Metamizole may falsely depress this assay. Reference Range HDL <40 mg/dL Low HDL Cholesterol HDL >or= 60 mg/dL High HDL Cholesterol Serum or plasma cholesterol in VLDL measurement (mass/volume)Ordered By: Dr. Chambers on 04-26-2022 Cholesterol in VLDL [Mass/Vol] 28 mg/dL 5-40 [facility] Serum or plasma creatinine m easurement (mass/volume)Ordered By: Dr. Chambers on 04-26-2022 Creatinine [Mass/Vol] 0.97 mg/dL 0.55-1.02 [facility] Comment on above: The validity of the calculated GFR & GFRAA in patients over 70 years has not been determined. Clinical correlation is essential. Serum or plasma low density lipoprotein (LDL) cholesterol measurement (mass/volume)Ordered By: Dr. Chambers on 04-26-2022 Cholesterol in LDL [Mass/Vol] 46 mg/dL 0-130 [facility] Serum or plasma urea nitroge n measurement (mass/volume)Ordered By: Dr. Chambers on 04-26-2022 Urea nitrogen [Mass/Vol] 23 mg/dL 7-18 [facility] Thin prep Papanicolaou smear with manual screeningOrdered By: Dr. Chambers on 04-26-2022 Thin prep Papanicolaou smear with manual screening 6 5-15 [facility] Absolute lymphocyte counton 11-16-2021 Lymphocytes Auto (Unsp spec) [#/Vol] 2.87 10*3/uL 0.83-4.51 [facility] Work Phone: Basophil percentageon 2021 Basophils/100 WBC (Bld) 0.8 % 0-1 [facility] Work Phone: Bilirubin [Mass/Vol] 0.50 mg/dL 0.20-1.00 [facility] Work Phone: Comment on above: For patients on eltr ombopag therapy, use of Dimension Mertens TBIL is not recommended. Chloride [Moles/Vol] 109 mmol/L 98-107 [facility] Work Phone: [phone] Eosinophils/100 WBC (Bld) 3.5 % 0-5 [facility] Work Phone: [phone] Glucose [Mass/Vol] 97 mg/dL 74-106 [facility] Work Phone: Neutrophils (Bld) [#/Vol] 3.6 10*3/uL 2.0-7.7 [facility] Work Phone: Neutrophils/100 WBC (Bld) 48.6 % 47-70 [facility] Work Phone: [phone] Potassium [Moles/Vol] 3.9 mmol/L 3.5-5.1 [facility] Work Phone: Protein [Mass/Vol] 6.7 g/dL 6.4-8.2 [facility] Work Phone: Sodium [Moles/Vol] 143 mmol/L 136-145 [facility] Work Phone: WBC (Bld) [#/Vol] 7.4 10*3/uL 4.4-11.0 [facility] Work Phone: Blood erythrocytes count (nu mber/volume)on 11-16-2021 RBC (Bld) [#/Vol] 4.65 10*6/uL 4.2-5.4 [facility]: Blood hemoglobin measurement (mass/volume)on 11-16-2021 Hemoglobin (Bld) [Mass/Vol] 11.8 g/dL 12.0-15.0 [facility] Work Phone: Blood lymphocytes/100 leukoc yteson 11-16-2021 Lymphocytes/100 WBC (Bld) 38.6 % 19-41 [facility] Work Phone: Blood monocytes/100 leukocyt eson 11-16-2021 Monocytes/100 WBC (Bld) 8.2 % 0-10 [facility] Work Phone: Blood platelet mean volumeon 11-16-2021 Platelet mean volume (Bld) [Entitic vol] 9.7 fL 6.2-12.0 [facility] Work Phone: Determination of erythrocyte mean corpuscular volume (MCV)on 11-16-2021 MCV (RBC) [Entitic vol] 83.7 fL 81-99 [facility] Work Phone: Hematocrit Auto (Bld) [Volum e fraction]on 11-16-2021 Hematocrit (Bld) [Volume fraction] 38.9 % 37-47 [facility] Work Phone: Laboratory - Chemistry and C hemistry - challengeon 11-16-2021 ALP [Catalytic activity/Vol] 70 U/L 45-117 [facility] Work Phone: ALT [Catalytic activity/Vol] 35 U/L 13-56 [facility] Work Phone: CO2 [Moles/Vol] 31.0 mmol/L 21.0-32.0 [facility] Work Phone: Globulin (S) [Mass/Vol] 3.5 g/dL 2.2-4.2 [facility] Work Phone: Urea nitrogen/Creatinine [Mass ratio] 17.1 mg/mg 10-20 [facility] Work Phone: Laboratory - Hematology and Cell countson 11-16-2021 Erythrocyte distribution width (RBC) [Entitic vol] 49.5 fL 35.1-43.9 [facility] Work Phone: Erythrocyte distribution width (RBC) [Ratio] 16.4 % 11.6-14.6 [facility] Work Phone: Immature granulocytes/100 WBC (Bld) 0.300 % 0.0-0.9 [facility] Work Phone: Comment on above: IG% - Immature Granu locytes (promyelocytes, myelocytes and metamyelocytes) > 1% indicates that a LEFT SHIFT is Present. MCH (RBC) [Entitic mass] 25.4 pg 27.0-32.0 [facility] Work Phone: Nucleated RBC/100 WBC (Bld) [Ratio] 0 % 0-5 [facility] Work Phone: MCHC Auto (RBC) [Mass/Vol]on 11-16-2021 MCHC (RBC) [Mass/Vol] 30.3 g/dL 32-36 [facility] Work Phone: No Panel Informationon 11-16 Estimated GFR (MDRD) Amer 76 mL/min >60 [facility] Work Phone: Comment on above: GFR Calc Estimated GFR (MDRD) Non-Af Amer 63 mL/min >60 [facility] Work Phone: Comment on above: Non- GFR Calc Platelets bldon 11-16-2021 Platelets (Bld) [#/Vol] 272 10*3/uL 150-450 [facility] Work Phone: Serum or plasma albumin john urement (mass/volume)on 11-16-2021 Albumin [Mass/Vol] 3.2 g/dL 3.2-5.0 [facility] Work Phone: Serum or plasma albumin/glob ulin mass ratioon 11-16-2021 Albumin/Globulin [Mass ratio] 0.9 {ratio} 0.9-2.4 [facility] Work Phone: Serum or plasma calcium john urement (mass/volume)on 11-16-2021 Calcium [Mass/Vol] 9.0 mg/dL 8.5-10.1 [facility] Work Phone: Serum or plasma creatinine m easurement (mass/volume)on 11-16-2021 Creatinine [Mass/Vol] 0.94 mg/dL 0.55-1.02 [facility] Work Phone: Comment on above: The validity of the calculated GFR & GFRAA in patients over 70 years has not been determined. Clinical correlation is essential. Serum or plasma urea nitroge n measurement (mass/volume)on 11-16-2021 Urea nitrogen [Mass/Vol] 16 mg/dL 7-18 [facility] Work Phone: Thin prep Papanicolaou smear with manual screeningon 11-16-2021 Thin prep Papanicolaou smear with manual screening 23 U/L 15-37 [facility] Work Phone: Thin prep Papanicolaou smear with manual screening 3 5-15 [facility] Work Phone: Laboratory - Microbiology an d Antimicrobial susceptibilityon 09-12-2021 SARS-CoV-2 (COVID-19) RNA ABAD+probe Ql (Unsp spec) Not detected Not Detect [facility] Work Phone: Comment on above: Normal Reference Ran ge: Not DetectedMethod:(RT-PCR) real-time reverse transcriptase PCRLuThe [employer]x [employer] Instrument*The Food and Drug Administration (FDA) has issued an Emergency Use Authorization (EAU) for the KENNEDY SARS-CoV-2 Assay for the rapid detection of the virus that causes COVID-19. This test has been validated, but the [facility] independent review of this validation is pending.*Negative results do not preclude infection and should not be used as the sole basis for treatment or patient management. Optimum specimen types and timing for peak viral levels during infections caused by SARS-CoV-2 have not been determined. Collection of multiple specimens from the same patient may be necessary to detect the virus. The possibility of a false negative result should be considered if the patient has clinical presentation or has had recent exposure. Laboratory - Microbiology an d Antimicrobial susceptibilityon 08-26-2021 SARS-CoV-2 (COVID-19) RNA ABAD+probe Ql (Unsp spec) Not detected Not Detect [facility] Work Phone: Comment on above: Normal Reference Ran ge: Not DetectedMethod:(RT-PCR) real-time reverse transcriptase PCRLuminex [employer] Instrument*The Food and Drug Administration (FDA) has issued an Emergency Use Authorization (EAU) for the KENNEDY SARS-CoV-2 Assay for the rapid detection of the virus that causes COVID-19. This test has been validated, but the FDAs independent review of this validation is pending.*Negative results do not preclude infection and should not be used as the sole basis for treatment or patient management. Optimum specimen types and timing for peak viral levels during infections caused by SARS-CoV-2 have not been determined. Collection of multiple specimens from the same patient may be necessary to detect the virus. The possibility of a false negative result should be considered if the patient has clinical presentation or has had recent exposure. Absolute lymphocyte counton 05-23-2021 Lymphocytes Auto (Unsp spec) [#/Vol] 2.78 10*3/uL 0.83-4.51 [facility] Work Phone: Basophil percentageon 2021 Basophils/100 WBC (Bld) 0.9 % 0-1 [facility] Work Phone: Bilirubin [Mass/Vol] 0.40 mg/dL 0.20-1.00 [facility] Work Phone: Comment on above: For patients on eltr ombopag therapy, use of Dimension Mertens TBIL is not recommended. Chloride [Moles/Vol] 106 mmol/L 98-107 [facility] Work [facility]: Eosinophils/100 WBC (Bld) 3.3 % 0-5 [facility] Work Phone: Glucose [Mass/Vol] 120 mg/dL 74-106 [facility] Work Phone: [phone] Comment on above: Fasting Glucose resu lt from 100 to 125 mg/dL suggests IMPAIRED HOMEOSTASIS per A.D.A. criteria. Neutrophils (Bld) [#/Vol] 3.8 10*3/uL 2.0-7.7 [facility] Work Phone: Neutrophils/100 WBC (Bld) 50.1 % 47-70 [facility] Work Phone: Potassium [Moles/Vol] 3.5 mmol/L 3.5-5.1 [facility] Work Phone: Protein [Mass/Vol] 7.2 g/dL 6.4-8.2 [facility] Work Phone: Sodium [Moles/Vol] 139 mmol/L 136-145 [facility] Work Phone: [phone] WBC (Bld) [#/Vol] 7.5 10*3/uL 4.4-11.0 [facility] Work Phone: Blood erythrocytes count (nu mber/volume)on 05-23-2021 RBC (Bld) [#/Vol] 4.80 10*6/uL 4.2-5.4 [facility] Work Phone: Blood hemoglobin measurement (mass/volume)on 05-23-2021 Hemoglobin (Bld) [Mass/Vol] 10.3 g/dL 12.0-15.0 [facility] Work Phone: [phone] Blood lymphocytes/100 leukoc yteson 05-23-2021 Lymphocytes/100 WBC (Bld) 36.9 % 19-41 [facility] Work Phone: Blood monocytes/100 leukocyt eson 05-23-2021 Monocytes/100 WBC (Bld) 8.4 % 0-10 [facility] Work Phone: Blood platelet mean volumeon 05-23-2021 Platelet mean volume (Bld) [Entitic vol] 9.6 fL 6.2-12.0 [facility] Work Phone: Determination of erythrocyte mean corpuscular volume (MCV)on 05-23-2021 MCV (RBC) [Entitic vol] 74.4 fL 81-99 [facility] Work Phone: Hematocrit Auto (Bld) [Volum e fraction]on 05-23-2021 Hematocrit (Bld) [Volume fraction] 35.7 % 37-47 [facility] Work Phone: Laboratory - Chemistry and C hemistry - challengeon 05-23-2021 ALP [Catalytic activity/Vol] 74 U/L 45-117 [facility] Work Phone: ALT [Catalytic activity/Vol] 34 U/L 13-56 [facility] Work Phone: CO2 [Moles/Vol] 27.0 mmol/L 21.0-32.0 [facility] Work Phone: Globulin (S) [Mass/Vol] 4.0 g/dL 2.2-4.2 [facility] Work Phone: Urea nitrogen/Creatinine [Mass ratio] 19.7 mg/mg 10-20 [facility] Work Phone: Laboratory - Hematology and Cell countson 05-23-2021 Erythrocyte distribution width (RBC) [Entitic vol] 44.2 fL 35.1-43.9 [facility] Work Phone: Erythrocyte distribution width (RBC) [Ratio] 16.8 % 11.6-14.6 [facility] Work Phone: Immature granulocytes/100 WBC (Bld) 0.400 % 0.0-0.9 [facility] Work Phone: Comment on above: IG% - Immature Granu locytes (promyelocytes, myelocytes and metamyelocytes) > 1% indicates that a LEFT SHIFT is Present. MCH (RBC) [Entitic mass] 21.5 pg 27.0-32.0 [facility] Work Phone: Nucleated RBC/100 WBC (Bld) [Ratio] 0 % 0-5 [facility] Work Phone: MCHC Auto (RBC) [Mass/Vol]on 05-23-2021 MCHC (RBC) [Mass/Vol] 28.9 g/dL 32-36 [facility] Work Phone: No Panel Informationon 05-23 Estimated GFR (MDRD) Amer 79 mL/min >60 [facility] Work Phone: Comment on above: GFR Calc Estimated GFR (MDRD) Non-Af Amer 65 mL/min >60 [facility] Work Phone: Comment on above: Non- GFR Calc Platelets bldon 05-23-2021 Platelets (Bld) [#/Vol] 391 10*3/uL 150-450 [facility] Work Phone: Serum or plasma albumin john urement (mass/volume)on 05-23-2021 Albumin [Mass/Vol] 3.2 g/dL 3.2-5.0 [facility] Work Phone: Serum or plasma albumin/glob ulin mass ratioon 05-23-2021 Albumin/Globulin [Mass ratio] 0.8 {ratio} 0.9-2.4 [facility] Work Phone: Serum or plasma calcium john urement (mass/volume)on 05-23-2021 Calcium [Mass/Vol] 8.7 mg/dL 8.5-10.1 [facility] Work Phone: Serum or plasma creatinine m easurement (mass/volume)on 05-23-2021 Creatinine [Mass/Vol] 0.91 mg/dL 0.55-1.02 [facility] Work Phone: Comment on above: The validity of the calculated GFR & GFRAA in patients over 70 years has not been determined. Clinical correlation is essential. Serum or plasma urea nitroge n measurement (mass/volume)on 05-23-2021 Urea nitrogen [Mass/Vol] 18 mg/dL 7-18 [facility] Work Phone: Thin prep Papanicolaou smear with manual screeningon 05-23-2021 Thin prep Papanicolaou smear with manual screening 20 U/L 15-37 [facility] Work Phone: [phone] Thin prep Papanicolaou smear with manual screening 6 5-15 [facility] Work Phone: Absolute lymphocyte counton 02-23-2021 Lymphocytes Auto (Unsp spec) [#/Vol] 3.19 10*3/uL 0.83-4.51 [facility] Work Phone: Basophil percentageon 2021 Basophils/100 WBC (Bld) 0.9 % 0-1 [facility] Work Phone: Bilirubin [Mass/Vol] 0.30 mg/dL 0.20-1.00 [facility] Work Phone: Comment on above: For patients on eltr ombopag therapy, use of Dimension Mertens TBIL is not recommended. Chloride [Moles/Vol] 106 mmol/L 98-107 [facility] Work Phone: Eosinophils/100 WBC (Bld) 2.5 % 0-5 [facility] Work Phone: Glucose [Mass/Vol] 72 mg/dL 74-106 [facility] Work Phone: Comment on above: Please note revised GLUCOSE reference range effective 2017. Neutrophils (Bld) [#/Vol] 4.5 10*3/uL 2.0-7.7 [facility] Work Phone: Neutrophils/100 WBC (Bld) 50.5 % 47-70 [facility] Work Phone: Potassium [Moles/Vol] 4.2 mmol/L 3.5-5.1 [facility] Work Phone: Protein [Mass/Vol] 7.1 g/dL 6.4-8.2 [facility] Work Phone: Sodium [Moles/Vol] 140 mmol/L 136-145 [facility] Work Phone: WBC (Bld) [#/Vol] 8.9 10*3/uL 4.4-11.0 [facility] Work Phone: Blood erythrocytes count (nu mber/volume)on 02-23-2021 RBC (Bld) [#/Vol] 4.90 10*6/uL 4.2-5.4 [facility] Work Phone: Blood hemoglobin measurement (mass/volume)on 02-23-2021 Hemoglobin (Bld) [Mass/Vol] 11.0 g/dL 12.0-15.0 [facility] Work Phone: Blood lymphocytes/100 leukoc yteson 02-23-2021 Lymphocytes/100 WBC (Bld) 36.0 % 19-41 [facility] Work Phone: Blood monocytes/100 leukocyt eson 02-23-2021 Monocytes/100 WBC (Bld) 10.0 % 0-10 [facility] Work Phone: Blood platelet mean volumeon 02-23-2021 Platelet mean volume (Bld) [Entitic vol] 9.8 fL 6.2-12.0 [facility] Work Phone: Determination of erythrocyte mean corpuscular volume (MCV)on 02-23-2021 MCV (RBC) [Entitic vol] 75.5 fL 81-99 [facility] Work Phone: Hematocrit Auto (Bld) [Volum e fraction]on 02-23-2021 Hematocrit (Bld) [Volume fraction] 37.0 % 37-47 [facility] Work Phone: Laboratory - Chemistry and C hemistry - challengeon 02-23-2021 ALP [Catalytic activity/Vol] 87 U/L 45-117 [facility] Work Phone: ALT [Catalytic activity/Vol] 34 U/L 13-56 [facility] Work Phone: CO2 [Moles/Vol] 28.0 mmol/L 21.0-32.0 [facility] Work Phone: Globulin (S) [Mass/Vol] 3.9 g/dL 2.2-4.2 [facility] Work Phone: Urea nitrogen/Creatinine [Mass ratio] 16.4 mg/mg 10-20 [facility] Work Phone: Laboratory - Hematology and Cell countson 02-23-2021 Erythrocyte distribution width (RBC) [Entitic vol] 48.4 fL 35.1-43.9 [facility] Work Phone: Erythrocyte distribution width (RBC) [Ratio] 17.8 % 11.6-14.6 [facility] Work Phone: Immature granulocytes/100 WBC (Bld) 0.100 % 0.0-0.9 [facility] Work Phone: Comment on above: IG% - Immature Granu locytes (promyelocytes, myelocytes and metamyelocytes) > 1% indicates that a LEFT SHIFT is Present. MCH (RBC) [Entitic mass] 22.4 pg 27.0-32.0 [facility] Work Phone: Nucleated RBC/100 WBC (Bld) [Ratio] 0 % 0-5 [facility] Work Phone: MCHC Auto (RBC) [Mass/Vol]on 02-23-2021 MCHC (RBC) [Mass/Vol] 29.7 g/dL 32-36 [facility] Work Phone: No Panel Informationon 02-23 Estimated GFR (MDRD) Amer 48 mL/min >60 [facility] Work Phone: Comment on above: GFR Calc Estimated GFR (MDRD) Non-Af Amer 40 mL/min >60 [facility] Work Phone: Comment on above: Non- GFR Calc Platelets bldon 02-23-2021 Platelets (Bld) [#/Vol] 342 10*3/uL 150-450 [facility] Work Phone: Serum or plasma albumin john urement (mass/volume)on 02-23-2021 Albumin [Mass/Vol] 3.2 g/dL 3.2-5.0 [facility] Work Phone: Serum or plasma albumin/glob ulin mass ratioon 02-23-2021 Albumin/Globulin [Mass ratio] 0.8 {ratio} 0.9-2.4 [facility] Work Phone: Serum or plasma calcium john urement (mass/volume)on 02-23-2021 Calcium [Mass/Vol] 8.7 mg/dL 8.5-10.1 [facility] Work Phone: Serum or plasma creatinine m easurement (mass/volume)on 02-23-2021 Creatinine [Mass/Vol] 1.40 mg/dL 0.55-1.02 [facility] Work Phone: Comment on above: The validity of the calculated GFR & GFRAA in patients over 70 years has not been determined. Clinical correlation is essential. Serum or plasma urea nitroge n measurement (mass/volume)on 02-23-2021 Urea nitrogen [Mass/Vol] 23 mg/dL 7-18 [facility] Work Phone: Thin prep Papanicolaou smear with manual screeningon 02-23-2021 Thin prep Papanicolaou smear with manual screening 22 U/L 15-37 [facility] Work Phone: Thin prep Papanicolaou smear with manual screening 6 5-15 [facility] Work Phone: Laboratory - Microbiology an d Antimicrobial susceptibilityon 01-31-2021 SARS-CoV-2 (COVID-19) RNA ABAD+probe Ql (Unsp spec) Not detected Not Detect [facility] Work Phone: Comment on above: Normal Reference Ran ge: Not DetectedMethod:(RT-PCR) real-time reverse transcriptase PCRLuminex KENNEDY Instrument*The Food and Drug Administration (FDA) has issued an Emergency Use Authorization (EAU) for the KENNEDY SARS-CoV-2 Assay for the rapid detection of the virus that causes COVID-19. This test has been validated, but the FDAs independent review of this validation is pending.*Negative results do not preclude infection and should not be used as the sole basis for treatment or patient management. Optimum specimen types and timing for peak viral levels during infections caused by SARS-CoV-2 have not been determined. Collection of multiple specimens from the same patient may be necessary to detect the virus. The possibility of a false negative result should be considered if the patient has clinical presentation or has had recent exposure. No Panel Informationon 01-31 Respiratory Panel (PCR) [facility] Work Phone: Final Surgical Pathology Rep garland 11-16-2020 Final Surgical Pathology Report . Pathology Reports Accession: Collected Date/Time: Received Date/Time: Pathologist: [id number] 11/12/2020 08:31 EDT 11/15/2020 10:42 EDT LYNDA FINN MD Final Surgical Pathology Report DIAGNOSIS: DISTAL ESOPHAGUS, BIOPSY - SQUAMOUS ESOPHAGEAL MUCOSA WITHOUT SIGNIFICANT MICROSCOPIC PATHOLOGY. GLANDULAR MUCOSA IS NOT PRESENT IN THIS BIOPSY SPECIMEN. COMMENT: Yesica# [id number] CLINICAL INFORMATION: Procedure: ESOPHAGOGASTRODUODENOSCOPY WITH BIOPSY Preoperative diagnosis: NAUSEA; GASTROESOPHAGEAL REFLUX DISEASE Postoperative diagnosis: SAME SPECIMEN: A DISTAL ESOPHAGUS BIOPSY GROSS DESCRIPTION: A. Received in formalin, labeled with the patients name, Case #[id number], and distal esophagus biopsy are 4 haque partially translucent tissue fragments ranging from 0.1 to 0.2 cm. TS -1. Dictated by MONICA RINCON MICROSCOPIC DESCRIPTION: Slides reviewed. Electronically Signed by Pathology Report verified by [facility] Electronically signed by LYNDA FINN Sign out Date: 11/16/2020 13:14 Performing Lab: [facility], [address] [place] [address] ([place]) Comment on above: Performed By: #### S PFR #### [address] [address] OBSOLETEon 01-09-2019 OBSOLETE Refill (PNMDNA) VIKTORIAIRIS ([id number]) 1950 F NFR Date Time Provider Department 01/09/19 ISABELLA JONES (BREAD DUMPER) PNMDNA During your visit today, we recorded the following information about you: Jason Abdi RN 01/09/2019 1:55 PM Signed Patient requesting refill of tizanidine Last office visit 05/29/[address] Linton Patient did not fill medications when sent to [facility] mail order. Patient requesting it to be sent to [facility] in [place], [place]. Isabella Jones APRN.CNP 01/10/2019 7:57 AM Signed Med e scripted Allergies As of Date: 01/09/2019 Noted Allergy Reaction ADHESIVE TAPE (ROSINS) 09/10/2006 CARVEDILOL 07/01/2015 3 - Cough CELEBREX (CELECOXIB) 04/26/2012 8 - GI Upset CODEINE 11/10/2004 4 - Hives DEMEROL (MEPERIDINE HCL) 11/10/2004 4 - Hives LEVAQUIN (LEVOFLOXACIN) 11/10/2004 4 - Hives Comments: States has taken since without reaction MELOXICAM 09/24/2009 8 - GI Upset METHOTREXATE 12/22/2014 2 - Rash MONOPRIL (FOSINOPRIL) 11/10/2004 3 - Cough NEURONTIN (GABAPENTIN) 11/10/2004 Comments: headache PERCOCET (OXYCODONE-ACETAMINOPHEN) 2 - Rash ULTRAM (TRAMADOL HCL) 11/10/2004 4 - Hives VERAPAMIL 11/10/2004 VICODIN (HYDROCODONE-ACETAMINOPHE*1 02/21/2014 2 - Rash VOLTAREN (DICLOFENAC SODIUM) 11/10/2004 8 - GI Upset Date Reviewed: 01/02/2019 Reviewed by: Mirella StewardRn) MARKIE Alonso - Fully Assessed Reason for Visit: Refill Request [94] Order(s):tiZANidine (ZANAFLEX) 4 mg tabletTake 1 tablet by mouth twice daily as needed.Disp: 60 tabletRfl: 3 Prescriptions as of 01/09/2019 Sig: TIZANIDINE 4 MG TABLET Take 1 tablet by mouth twice * ASPIRIN 81 MG TABLET,DELAYED * Take 81 mg by mouth once awlt* GABAPENTIN 300 MG CAPSULE Take 300 mg by mouth twice da* MONTELUKAST 10 MG TABLET Take 1 tablet by mouth daily * ALBUTEROL SULFATE HFA 90 MCG/* Inhale 2 Puffs as instructed * PANTOPRAZOLE 40 MG TABLET,DEL* TAKE 1 TABLET DAILY ON AN EM* FLUTICASONE PROPIONATE 110 MC* Inhale 1 Puff as instructed t* BIPAP LEVOTHYROXINE 175 MCG TABLET Take 1 tablet by mouth once d* LEVETIRACETAM 1,000 MG TABLET Take 1 tablet by mouth once d* TRIAMTERENE 37.5 MG-HYDROCHLO* Take 1 capsule by mouth once * NABUMETONE 500 MG TABLET TAKE 2 TABLETS ONE TIME DAILY* PREDNISONE 10 MG TABLET Take 1 tablet by mouth as nee* FLUTICASONE PROPIONATE 50 MCG* Use 1-2 Sprays in each nostri* METOPROLOL TARTRATE 50 MG TAB* Take 1 tablet by mouth twice * LOPERAMIDE 2 MG CAPSULE Take 1 capsule by mouth four * CHOLECALCIFEROL (VITAMIN D3) * Take 1 tablet by mouth once d* CYANOCOBALAMIN (VIT B-12) 1,0* Dissolve 1 tablet under the t* CETIRIZINE 10 MG TABLET Take 10 mg by mouth as needed. ADALIMUMAB 40 MG/0.8 ML SUBCU* Inject 40 mg subcutaneously o* PEDIATRIC MULTIVITAMIN-IRON C* TAKE ONE(1) TABLET DAILY WITH* Problem List As Of Date 01/09/2019 Noted Resolved Acquired hypothyroidism [E03.9] More... NEUROPATHY IN OTHER DIS [G63] MALIG JYOTI CORPUS UTERI [C54.9] More... ATRIAL PREMATURE BEATS [I49.1] Essential hypertension [I10] More... Adjustment disorder with depressed mood [F43.21]03/05/2006 More... CONGENITAL PES PLANUS [Q66.50] 07/20/2006 Hereditary and idiopathic peripheral neuropathy*08/06/2006 More... DEPRESSIVE DISORDER NEC [F32.9] Anemia [D64.9] 12/29/2009 Hyperlipidemia [E78.5] 12/29/2009 Rheumatoid arthritis (HCC) [M06.9] 12/29/2009 More... Anxiety [F41.9] 12/29/2009 Family history of colon cancer [Z80.0] 12/29/2009 More... History of bariatric surgery [Z98.84] 12/29/2009 More... Benign neoplasm of colon [D12.6] 06/26/2011 Family history of malignant neoplasm of gastroi*06/26/2011 Acute gastritis without mention of hemorrhage [*06/26/2011 08/24/2015 Osteoarthritis [M19.90] 03/20/2012 History of uterine cancer [Z85.42] 10/02/2012 Thoracic radiculitis [M54.14] 12/25/2012 Disc displacement, thoracic [M51.24] 12/25/2012 Lumbar radiculopathy [M54.16] 03/28/2013 More... DDD (degenerative disc disease), lumbar [M51.36]03/28/2013 Carpal tunnel syndrome, left [G56.02] 07/28/2013 Ganglion cyst [M67.40] 07/28/2013 Thoracic radiculopathy [M54.14] 08/08/2013 Thoracic disc disease [M51.9] 08/08/2013 Chronic pain syndrome [G89.4] 03/23/2015 PUD (peptic ulcer disease) [K27.9] 03/14/2016 More... Obesity, Class III, BMI 40-49.9 (morbid obesity*06/28/2017 Radiculopathy of lumbar region [M54.16] 10/02/2017 More... Spinal stenosis of thoracic region [M48.04] 05/29/2018 Prescriptions ordered this encounter Disp Refills Start End TIZANIDINE 4 MG TABLET 60 t* 3 01/10/2019 02/09/2019 Route: ORAL Sig: Take 1 tablet by mouth twice daily as needed. Encounter Status:Closed by ISABELLA JONES on 01/10/19 [facility] HISTORY PHYSICALon 9 HISTORY PHYSICAL HNO ID: [id number] Author: David Linton Service: Pain Management Author Type: Physician Type: HANDP Filed: 01/02/2019 11:45 AM Note Text: HISTORY AND PHYSICAL EXAMINATION PATIENT NAME: Iris Blum DATE of SERVICE: 01/02/2019 Iris Blum is here for the pain mangement procedure. The patient presents with persistent pain complaints. Iris Blum denies any interval changes or new pain complaints or focal neurologic deficits. PAST MEDICAL HISTORY Diagnosis Date - Arrhythmia - Asthma - Benign neoplasm of colon - Complication of anesthesia n/v with general anesthetic - Depressive disorder, not elsewhere classified - Endometrial cancer (HCC) 1989 - Esophageal reflux - Fibromyalgia - Fracture of navicular bone of wrist, left, closed - Iron deficiency anemia secondary to blood loss (chronic) - Malignant neoplasm of corpus uteri, except isthmus (HCC) Uterine cancer - EMMETT treated with BiPAP BiPAP 04/12 [facility] [phone] - Other specified anemias - Polyneuropathy in other diseases classified elsewhere (HCC) - Rheumatoid arthritis (HCC) - Seasonal allergies - Snoring - Supraventricular premature beats - Unspecified essential hypertension - Unspecified hypothyroidism PAST SURGICAL HISTORY Procedure Laterality Date - BX OF BREAST; INCISIONAL x 2 Bx of breast, incisional - COLONOSCOP W/ OR W/O [facility] SPEC 09/10/06 - COLONOSCOP W/ OR W/O [facility] SPEC 06/26/2011 Colonoscopy repeat 5 years - EGD W/O OR W/BRUSH/WASH 09/10/06 - GASTRIC BYPASS,OBESITY,SB RECONSTRUC 05/2000 - PAST SURGICAL HISTORY OF 2003 abdominal plasty, thigh plasty - PAST SURGICAL HISTORY OF 2004 brachial plasty - REMOVAL GALLBLADDER 07/24/1996 - REMOVAL OF TONSILS,<14 Y/O 1975 Tonsillectomy - TOTAL ABDOM HYSTERECTOMY 1989 Hysterectomy, NATALIO Social History Tobacco Use - Smoking status: Never Smoker - Smokeless tobacco: Never Used - Tobacco comment: Father smoked in childhood home. Substance Use Topics - Alcohol use: No - Drug use: No FAMILY HISTORY Problem Relation Age of Onset - Cancer Father lung, - Hypertension Mother - other (tremor) Mother - Stroke Maternal Grandmother - Hypertension Maternal Grandmother - Stroke Maternal Uncle - Diabetes Paternal Grandmother - Diabetes Maternal Grandfather - Diabetes Paternal Uncle - Diabetes Paternal Uncle - Diabetes Paternal Aunt - Diabetes Paternal Aunt - Cancer Maternal Uncle 3 uncles with Leukemia - Cancer Brother colon ALLERGIES Allergen Reactions - Adhesive Tape (Afshan* - Carvedilol Cough - Celebrex [Celecoxib] GI Upset - Codeine Hives - Demerol [Meperidine* Hives - Levaquin [Levofloxa* Hives States has taken since without reaction - Meloxicam GI Upset - Methotrexate Rash - Monopril [Fosinopri* Cough - Neurontin [Gabapent* headache - Percocet [Oxycodone* Rash - Ultram [Tramadol Hc* Hives - Verapamil - Vicodin [Hydrocodon* Rash - Voltaren [Diclofena* GI Upset Current Facility-Administered Medications Medication Dose Route Frequency - NaCl 0.9% iv infusion 30 mL/hr INTRAVENOUS CONTINUOUS Physical Exam: Performed in conjunction with observation. The patient is alert and oriented x3. The patient is in no acute distress. Neck: Supple. The range of motion is intact. Lungs: clear CVR: RRR. Extremities: no reported edema or erythema. Examination indicates no changes Impression: Lumbar spondylosis Plan: The informed consent has been obtained. The plan is to proceed with the procedure as planned. SIGNATURE: David Linton MD DATE: January 02, 2019 TIME: 11:44 AM [facility] OPERATIVE NOon 01-02-2019 OPERATIVE NO HNO ID: [id number] Author: David Linton Service: Pain Management Author Type: Physician Type: Operative Report Filed: 01/02/2019 12:15 PM Note Text: PATIENT NAME: Iris Blum SERVICE DATE: 01/02/2019 PREOPERATIVE DIAGNOSIS(ES) Lumbar spondylosis without myelopathy Degeneration of lumbar intervertebral disc Lumbar facet arthropathy POSTOPERATIVE DIAGNOSIS(ES): same OPERATION: Left L2,3,4,5 Lumbar Facet Medial Branch Nerve RFA under fluoroscopy. ? ANESTHESIA: Versed 4mg, Fentanyl 100mcg. IV ? INDICATIONS: The patient had positive diagnostic facet medial branch nerve blocks. The pain overall has improved by greater than 60% and the patient reports an increase in physical activity. The plan is Radiofrequency ablation of medial branch nerves at left L2,3,4,5 levels. The risks and benefits of the procedure were discussed. Specifically, the risks of bleeding, infection, inadvertent dural puncture, spinal heaches, vasovagal reaction, epidural hematoma, partial or permanent nerve injury were covered. The potential side effects of medications used in procedures including increase in lumbar pain, headaches, facial redness or warmth (flushing), anxiety or mood swings, sleeplessness, fever, high blood sugar, brief reduction in immunity were discussed. The patient expressed understanding of potential risks and wishes to proceed with the procedure. ? ? PROCEDURE: LEFT L2,3,4,5 FACET MEDIAL BRANCH NERVE RADIOFREQUENCY NEUROTOMY ? DESCRIPTION OF PROCEDURE: The patient was brought to the fluoroscopy suite. IV access was obtained prior to the procedure. The patient was positioned prone on the fluoroscopy table. Continuous hemodynamic monitoring was initiated including blood pressure and pulse oximetry. IV sedation was administered incrementally to allow the patient to remain comfortable and conversant throughout the procedure. The area of the posterior lumbar area was prepped povidone-iodine three times and draped into a sterile field. Fluoroscopy was used to identify the location of the left side at L2,3,4,5 medial branch nerves respectively. Skin anesthesia was achieved using 3 cc of Lidocaine 0.5% over the injection sites. A 20 gauge, 150mm (10mm active tip) curved RF needle was slowly inserted at each level using AP, lateral and oblique fluoroscopic imaging. Negative aspiration for blood or CSF was confirmed. Sensory stimulation at 50Hz below 0.5V was achieved at every level. Motor stimulation at 2Hz up to 1.5V did not cause any radicular symptoms at any level. Each level was anesthetized with 1.5 cc of lidocaine 1%. Radiofrequency lesioning was performed for 90 seconds at 80 degrees at each level. At each level, 1ml of 0.25% Marcaine with 5 mg of Kenalog was injected. The needles were removed and bleeding was nil. A sterile dressing was applied. Iris Blum was taken to the Post-block Recovery Area for further observation. EBL: nil Start time: 11:54 AM End time: 12:09 PM I was present the entire time and personally performed the procedure. SIGNATURE: David Linton MD DATE: January 02, 2019 TIME: 12:14 PM [facility] PT EDon 01-02-2019 PT ED HNO ID: [id number] Author: Mirella StewardRn) MARKIE Alonso Service: ? Author Type: Registered Nurse Type: Patient Education Filed: 01/02/2019 12:26 PM Note Text: POST OP LEARNING RESPONSE INSTRUCTION PROVIDED TO: Patient METHOD OF INSTRUCTION: Teach Back done Individual instruction Written instruction - handouts Verbal instruction PATIENT / FAMILY RESPONSE: Verbalizes understanding of: POST-PROCEDURE INSTRUCTIONS-Correct actions to take to reduce post procedure complications SYMPTOM MANAGEMENT-Correct actions to take to manage symptoms associated with his/her disease/illness WORSENING CONDITION-Signs and symptoms of a worsening condition that warrant a call to the physician WOUND CARE-Correct procedure to perform wound care FOLLOW-UP PLAN: Patient instructed to call with any further issues Contact information given. SUPPLEMENTAL MATERIAL: None REFERRAL (RECOMMENDATION): None Electronically Signed By: Mirella Alonso RN In Department: [facility] SURGER [facility] PT ED HNO ID: [id number] Author: Lilliana (Rn) MARKIE Adams Service: Nursing Author Type: Registered Nurse Type: Patient Education Filed: 01/02/2019 10:57 AM Note Text: PRE OP LEARNING ASSESSMENT PROCEDURE/SURGERY: PAIN MANAGEMENT: READINESS TO LEARN COGNITIVE ABILITY: Alert and oriented MOTIVATION TO LEARN: Eager FAMILY SUPPORT: High - Very involved in pt care PATIENT LEARNS BEST BY: Verbal Instruction FACTORS AFFECTING LEARNING: None PHYSICAL LIMITATIONS AFFECTING LEARNING: None Electronically Signed By: Lilliana Adams RN In Department: [facility] SURGERY [facility] XR FLUOROSCOPYon 01-02-2019 XR FLUOROSCOPY * * *Final Report* * * DATE OF EXAM: Jan 02 2019 12:14PM MDR [id number] - XR FLUOROSCOPY / PROCEDURE REASON: pain * * * * Physician Interpretation * * * * INDICATION: pain TECHNIQUE: Fluoroscopy with 5 views of the lower lumbar spine Fluoroscopic Radiation Summary: Plane A, Air Kerma: 21.1 mGy Dose Area Product (DAP): 2666.6 mGy*cm^2 Fluoro time: 0:35 min:sec FINDINGS/ IMPRESSION: [place] project toward the facet joints at 4 consecutive levels on the left from L2 through L5. Please refer to the performing LIP's report. Sorter/Assay Tech: PSCB Transcribe Date/Time: Jan 02 2019 1:34P Dictated by : REGINALDO CENTENO MD This examination was interpreted and the report reviewed and electronically signed by: REGINALDO CENTENO MD on Jan 02 2019 1:35PM EST [id number] [facility] HISTORY PHYSICALon 9 HISTORY PHYSICAL HNO ID: [id number] Author: David Linton Service: Pain Management Author Type: Physician Type: HANDP Filed: 12/19/2018 11:33 AM Note Text: HISTORY AND PHYSICAL EXAMINATION PATIENT NAME: Iris Blum DATE of SERVICE: 12/19/2018 Iris Blmu is here for the pain mangement procedure. The patient presents with persistent pain complaints. Iris Blum denies any interval changes or new pain complaints or focal neurologic deficits. PAST MEDICAL HISTORY Diagnosis Date - Arrhythmia - Asthma - Benign neoplasm of colon - Complication of anesthesia n/v with general anesthetic - Depressive disorder, not elsewhere classified - Endometrial cancer (HCC) 1989 - Esophageal reflux - Fibromyalgia - Fracture of navicular bone of wrist, left, closed - Iron deficiency anemia secondary to blood loss (chronic) - Malignant neoplasm of corpus uteri, except isthmus (HCC) Uterine cancer - EMMETT treated with BiPAP BiPAP 04/12 [facility] [phone] - Other specified anemias - Polyneuropathy in other diseases classified elsewhere ([facility]) - Rheumatoid arthritis (HCC) - Seasonal allergies - Snoring - Supraventricular premature beats - Unspecified essential hypertension - Unspecified hypothyroidism PAST SURGICAL HISTORY Procedure Laterality Date - BX OF BREAST; INCISIONAL x 2 Bx of breast, incisional - COLONOSCOP W/ OR W/O [facility] SPEC 09/10/06 - COLONOSCOP W/ OR W/O [facility] SPEC 06/26/2011 Colonoscopy repeat 5 years - EGD W/O OR W/BRUSH/WASH 09/10/06 - GASTRIC BYPASS,OBESITY,SB RECONSTRUC 05/2000 - PAST SURGICAL HISTORY OF 2003 abdominal plasty, thigh plasty - PAST SURGICAL HISTORY OF 2004 brachial plasty - REMOVAL GALLBLADDER 07/24/1996 - REMOVAL OF TONSILS,<14 Y/O 1975 Tonsillectomy - TOTAL ABDOM HYSTERECTOMY 1989 Hysterectomy, NATALIO Social History Socioeconomic History Marital status: Spouse name: Not on file Number of children: 0 Years of education: Not on file Highest education level: Not on file Occupational History 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 Comment: Total 40 plus years of nursing. Social Needs Financial resource strain: Not on file Food insecurity: Worry: Not on file Inability: Not on file Transportation needs: Medical: Not on file Non-medical: Not on file Tobacco Use Smoking status: Never Smoker Smokeless tobacco: Never Used Tobacco comment: Father smoked in childhood home. Substance and Sexual Activity Alcohol use: No Drug use: No Sexual activity: Not on file Lifestyle Physical activity: Days per week: Not on file Minutes per session: Not on file Stress: Not on file Relationships Social connections: Talks on phone: Not on file Gets together: Not on file Attends moravian service: Not on file Active member of club or organization: Not on file Attends meetings of clubs or organizations: Not on file Relationship status: Not on file Intimate partner violence: Fear of current or ex partner: Not on file Emotionally abused: Not on file Physically abused: Not on file Forced sexual activity: Not on file Other Topics Concerns: Not on file Social History Narrative In current home 2 years. No basement. 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 Quarterly filters. Grew up as [employer] [place]: [place], [place], [place]. 2 cats in home for about a year. No positive PPD. FAMILY HISTORY Problem Relation Age of Onset - Cancer Father lung, - Hypertension Mother - other (tremor) Mother - Stroke Maternal Grandmother - Hypertension Maternal Grandmother - Stroke Maternal Uncle - Diabetes Paternal Grandmother - Diabetes Maternal Grandfather - Diabetes Paternal Uncle - Diabetes Paternal Uncle - Diabetes Paternal Aunt - Diabetes Paternal Aunt - Cancer Maternal Uncle 3 uncles with Leukemia - Cancer Brother colon ALLERGIES Allergen Reactions - Adhesive Tape (Afshan* - Carvedilol Cough - Celebrex [Celecoxib] GI Upset - Codeine Hives - Demerol [Meperidine* Hives - Levaquin [Levofloxa* Hives States has taken since without reaction - Meloxicam GI Upset - Methotrexate Rash - Monopril [Fosinopri* Cough - Neurontin [Gabapent* headache - Percocet [Oxycodone* Rash - Ultram [Tramadol Hc* Hives - Verapamil - Vicodin [Hydrocodon* Rash - Voltaren [Diclofena* GI Upset Current Facility-Administered Medications: NaCl 0.9% iv infusion 30 mL/hr INTRAVENOUS CONTINUOUS Physical Exam: Performed in conjunction with observation. The patient is alert and oriented x3. The patient is in no acute distress. Neck: Supple. The range of motion is intact. Lungs: clear CVR: RRR. Extremities: no reported edema or erythema. Examination indicates no changes Impression: Lumbar facet arthropathy Plan: The informed consent has been obtained. The plan is to proceed with the procedure as planned. SIGNATURE: David Linton MD DATE: December 19, 2018 TIME: 11:33 AM [facility] OPERATIVE NOon 12-19-2018 OPERATIVE NO HNO ID: [id number] Author: David Linton Service: Pain Management Author Type: Physician Type: Operative Report Filed: 12/19/2018 11:59 AM Note Text: PATIENT NAME: Iris Blum SERVICE DATE: 12/19/2018 PREOPERATIVE DIAGNOSIS(ES) Lumbar spondylosis without myelopathy Degeneration of lumbar intervertebral disc Lumbar facet arthropathy POSTOPERATIVE DIAGNOSIS(ES): same OPERATION: Right L2,3,4,5 Lumbar Facet Medial Branch Nerve RFA under fluoroscopy. ANESTHESIA: Versed 4mg, Fentanyl 100mcg. IV INDICATIONS: The patient had positive diagnostic facet medial branch nerve blocks. The pain overall has improved by greater than 60% and the patient reports an increase in physical activity. The plan is Radiofrequency ablation of medial branch nerves at right L2,3,4,5 levels. The risks and benefits of the procedure were discussed. Specifically, the risks of bleeding, infection, inadvertent dural puncture, spinal heaches, vasovagal reaction, epidural hematoma, partial or permanent nerve injury were covered. The potential side effects of medications used in procedures including increase in lumbar pain, headaches, facial redness or warmth (flushing), anxiety or mood swings, sleeplessness, fever, high blood sugar, brief reduction in immunity were discussed. The patient expressed understanding of potential risks and wishes to proceed with the procedure. PROCEDURE: RIGHT L2,3,4,5 FACET MEDIAL BRANCH NERVE RADIOFREQUENCY NEUROTOMY DESCRIPTION OF PROCEDURE: The patient was brought to the fluoroscopy suite. IV access was obtained prior to the procedure. The patient was positioned prone on the fluoroscopy table. Continuous hemodynamic monitoring was initiated including blood pressure and pulse oximetry. IV sedation was administered incrementally to allow the patient to remain comfortable and conversant throughout the procedure. The area of the posterior lumbar area was prepped povidone-iodine three times and draped into a sterile field. Fluoroscopy was used to identify the location of the right side at L2,3,4,5 medial branch nerves respectively. Skin anesthesia was achieved using 3 cc of Lidocaine 0.5% over the injection sites. A 20 gauge, 150mm (10mm active tip) curved RF needle was slowly inserted at each level using AP, lateral and oblique fluoroscopic imaging. Negative aspiration for blood or CSF was confirmed. Sensory stimulation at 50Hz below 0.5V was achieved at every level. Motor stimulation at 2Hz up to 1.5V did not cause any radicular symptoms at any level. Each level was anesthetized with 1.5 cc of lidocaine 1%. Radiofrequency lesioning was performed for 90 seconds at 80 degrees at each level. At each level, 1ml of 0.25% Marcaine with 5 mg of Kenalog was injected. The needles were removed and bleeding was nil. A sterile dressing was applied. Iris Blum was taken to the Post-block Recovery Area for further observation. EBL: nil Start time: 11:40 AM End time: 11:56 AM I was present the entire time and personally performed the procedure. SIGNATURE: David Linton MD DATE: December 19, 2018 TIME: 11:57 AM [facility] PT EDon 12-19-2018 PT ED HNO ID: [id number] Author: Tommie StewardRnMerary Denise RN Service: Nursing Author Type: Registered Nurse Type: Patient Education Filed: 12/19/2018 12:17 PM Note Text: POST OP LEARNING RESPONSE INSTRUCTION PROVIDED TO: Patient and family member METHOD OF INSTRUCTION: Written instruction - handouts Verbal instruction PATIENT / FAMILY RESPONSE: Verbalizes understanding of: POST-OPERATIVE INSTRUCTIONS-Correct actions to take to reduce postoperative complications FOLLOW-UP PLAN: Recommend - Recommend continued instruction and follow up as directed SUPPLEMENTAL MATERIAL: None REFERRAL (RECOMMENDATION): None Electronically Signed By: Tommie Denise RN In Department: [facility] SURGERY [facility] PT ED HNO ID: [id number] Author: Gregorio Robledo) MARKIE Ugalde Service: Nursing Author Type: Registered Nurse Type: Patient Education Filed: 12/19/2018 10:59 AM Note Text: PRE OP LEARNING ASSESSMENT PROCEDURE/SURGERY: PAIN MANAGEMENT: pain block/rfa READINESS TO LEARN COGNITIVE ABILITY: Alert and oriented MOTIVATION TO LEARN: Eager FAMILY SUPPORT: High - Very involved in pt care PATIENT LEARNS BEST BY: Individual Instruction Verbal Instruction FACTORS AFFECTING LEARNING: None PHYSICAL LIMITATIONS AFFECTING LEARNING: None Electronically Signed By: Gregorio Ugalde RN In Department: [facility] SURGERY [facility] XR FLUOROSCOPYon 12-19-2018 XR FLUOROSCOPY * * *Final Report* * * DATE OF EXAM: Dec 19 2018 12:00PM MDR [id number] - XR FLUOROSCOPY / PROCEDURE REASON: pain * * * * Physician Interpretation * * * * INDICATION: Pain management TECHNIQUE: 5 submitted fluoroscopic spot images Fluoroscopic Radiation Summary: Plane A, Air Kerma: 18.7 mGy Plane B, Air Kerma: 0.0 mGy Dose Area Product (DAP): 2332.9 mGy*cm^2 Fluoro time: 0:32 min:sec FINDINGS/ IMPRESSION: 5 submitted fluoroscopic spot images were reviewed demonstrating multiple needles directed at the labeled right lumbar spine/lumbosacral junction. Refer to the procedure note for details regarding this procedure. Sorter/Assay Tech: YANET Transcribe Date/Time: Dec 19 2018 12:28P Dictated by : VANITA MITCHELL MD This examination was interpreted and the report reviewed and electronically signed by: VANITA MITCHELL MD on Dec 19 2018 12:29PM EST [id number] [facility] HOSPon 12-17-2018 HOSP Patient:Waqas Blum MRN: Height:5' 5(1.651 m) Weight:No patient weight recorded within the last 30 days. Outpatient Medications as of 01/02/19: aspirin, enteric coated (ASPIRIN, ENTERIC COATED) 81 mg EC tablet gabapentin (NEURONTIN) 300 mg capsule montelukast (SINGULAIR) 10 mg tablet albuterol HFA (VENTOLIN HFA) 90 mcg/actuation inhaler pantoprazole DR (PROTONIX) 40 mg tablet fluticasone (FLOVENT) 110 mcg/actuation inhaler BIPAP levothyroxine (SYNTHROID) 175 mcg tablet levETIRAcetam (KEPPRA) 1,000 mg tablet triamterene-hydrochlorothia zide 37.5-25 mg per capsule nabumetone (RELAFEN) 500 mg tablet predniSONE (DELTASONE) 10 mg tablet fluticasone (FLONASE) 50 mcg/actuation nasal spray metoprolol tartrate, short acting, (LOPRESSOR) 50 mg tablet loperamide (IMODIUM) 2 mg cap(s) Cholecalciferol, Vitamin D3, 2,000 unit cap Cyanocobalamin (VITAMIN B-12) 1,000 mcg subl cetirizine (ZYRTEC) 10 mg tablet adalimumab (HUMIRA) 40 mg/0.8 mL injection pediatric multivitamins with iron (FLINTSTONES PLUS IRON) ORAL chewable tablet Admission/Clinic Administered Medications as of 01/02/19: NaCl 0.9% iv infusion Problem List: Acquired hypothyroidism [E03.9] Polyneuropathy in other diseases classified elsewhere ([facility]) [G63] Malignant neoplasm of corpus uteri, except isthmus ([facility]) [C54.9] Supraventricular premature beats [I49.1] Essential hypertension [I10] Adjustment disorder with depressed mood [F43.21] 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] Depressive disorder, not elsewhere classified [F32.9] Anemia [D64.9] Hyperlipidemia [E78.5] Rheumatoid arthritis ([facility]) [M06.9] Anxiety [F41.9] Family history of colon cancer [Z80.0] History of bariatric surgery [Z98.84] Benign neoplasm of colon [D12.6] Family history of malignant neoplasm of gastrointestinal tract [Z80.0] Osteoarthritis [M19.90] History of uterine cancer [Z85.42] Thoracic radiculitis [M54.14] Disc displacement, thoracic [M51.24] Lumbar radiculopathy [M54.16] DDD (degenerative disc disease), lumbar [M51.36] Carpal tunnel syndrome, left [G56.02] Ganglion cyst [M67.40] Thoracic radiculopathy [M54.14] Thoracic disc disease [M51.9] Chronic pain syndrome [G89.4] PUD (peptic ulcer disease) [K27.9] Obesity, Class III, BMI 40-49.9 (morbid obesity) ([facility]) [E66.01] Radiculopathy of lumbar region [M54.16] Spinal stenosis of thoracic region [M48.04] Allergies: Adhesive Tape (Rosins) Carvedilol Celebrex [Celecoxib] Codeine Demerol [Meperidine Hcl] Levaquin [Levofloxacin] Meloxicam Methotrexate Monopril [Fosinopril] Neurontin [Gabapentin] Percocet [Oxycodone-Acetaminophen] Ultram [Tramadol Hcl] Verapamil Vicodin [Hydrocodone-Acetaminophen] Voltaren [Diclofenac Sodium] Date Verified: 01/02/19 Lab Values No results within the last 30 days for the following basenames: K,HCT No progress notes entered within the past 30 days Normal [facility] HOSP Patient:Waqas Blum MRN: Height:5' 5(1.651 m) Weight:No patient weight recorded within the last 30 days. Outpatient Medications as of 12/19/18: aspirin, enteric coated (ASPIRIN, ENTERIC COATED) 81 mg EC tablet gabapentin (NEURONTIN) 300 mg capsule montelukast (SINGULAIR) 10 mg tablet albuterol HFA (VENTOLIN HFA) 90 mcg/actuation inhaler pantoprazole DR (PROTONIX) 40 mg tablet fluticasone (FLOVENT) 110 mcg/actuation inhaler BIPAP levothyroxine (SYNTHROID) 175 mcg tablet levETIRAcetam (KEPPRA) 1,000 mg tablet triamterene-hydrochlorothia zide 37.5-25 mg per capsule nabumetone (RELAFEN) 500 mg tablet predniSONE (DELTASONE) 10 mg tablet fluticasone (FLONASE) 50 mcg/actuation nasal spray metoprolol tartrate, short acting, (LOPRESSOR) 50 mg tablet loperamide (IMODIUM) 2 mg cap(s) Cholecalciferol, Vitamin D3, 2,000 unit cap Cyanocobalamin (VITAMIN B-12) 1,000 mcg subl cetirizine (ZYRTEC) 10 mg tablet adalimumab (HUMIRA) 40 mg/0.8 mL injection pediatric multivitamins with iron (FLINTSTONES PLUS IRON) ORAL chewable tablet Admission/Clinic Administered Medications as of 12/19/18: NaCl 0.9% iv infusion Problem List: Acquired hypothyroidism [E03.9] Polyneuropathy in other diseases classified elsewhere (HCC) [G63] Malignant neoplasm of corpus uteri, except isthmus (HCC) [C54.9] Supraventricular premature beats [I49.1] Essential hypertension [I10] Adjustment disorder with depressed mood [F43.21] 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] Depressive disorder, not elsewhere classified [F32.9] Anemia [D64.9] Hyperlipidemia [E78.5] Rheumatoid arthritis (HCC) [M06.9] Anxiety [F41.9] Family history of colon cancer [Z80.0] History of bariatric surgery [Z98.84] Benign neoplasm of colon [D12.6] Family history of malignant neoplasm of gastrointestinal tract [Z80.0] Osteoarthritis [M19.90] History of uterine cancer [Z85.42] Thoracic radiculitis [M54.14] Disc displacement, thoracic [M51.24] Lumbar radiculopathy [M54.16] DDD (degenerative disc disease), lumbar [M51.36] Carpal tunnel syndrome, left [G56.02] Ganglion cyst [M67.40] Thoracic radiculopathy [M54.14] Thoracic disc disease [M51.9] Chronic pain syndrome [G89.4] PUD (peptic ulcer disease) [K27.9] Obesity, Class III, BMI 40-49.9 (morbid obesity) (HCC) [E66.01] Radiculopathy of lumbar region [M54.16] Spinal stenosis of thoracic region [M48.04] Allergies: Adhesive Tape (Rosins) Carvedilol Celebrex [Celecoxib] Codeine Demerol [Meperidine Hcl] Levaquin [Levofloxacin] Meloxicam Methotrexate Monopril [Fosinopril] Neurontin [Gabapentin] Percocet [Oxycodone-Acetaminophen] Ultram [Tramadol Hcl] Verapamil Vicodin [Hydrocodone-Acetaminophen] Voltaren [Diclofenac Sodium] Date Verified: 12/19/18 Lab Values No results within the last 30 days for the following basenames: K,HCT Progress Notes ([facility]): Jason Abdi RN 11/26/2018 11:29 AM Signed Patient contacted office. Patient states injection from 09/17/18 is wearing off. Patient had Bilateral L2,3,4??Lumbar Facet Medial Branch Nerve Blockunder fluoroscopy injections on 06/18/18 and 09/17/18. Patient would like to proceed with RFAs. Patient states her overall improvement with 09/17/18 Facet injection was 90%. Tentative dates for RFAs are December 19, 2018 and January 02, 2019. Patient would like to start with right side first. Isabella Jones APRN.BREAD DUMPER 12/17/2018 2:33 PM Addendum Orders placed for RIGHT L2-3,3-4,4-5 Lumbar Facet RFA under fluoroscopy and then the LEFT side Previous Version Isabella Jones APRN.BREAD DUMPER 12/17/2018 2:33 PM Signed Addended by: ISABELLA JONES on: 12/17/2018 02:33 PM Modules accepted: Orders Jason Abdi RN 12/17/2018 2:53 PM Signed Patient contacted at this time. Reviewed procedure instructions. Reviewed risks associated with procedure. Patient verbalizes understanding. No additional questions or concerns at this time. Patient instructed consent will obtained day of procedure. Patient educated Dr. Linton will be available for any additional questions or concerns prior to procedure. [facility] 11-26-2018 CHRISTIE Telephone (ROBERT) IRIS BLUM ([id number]) 1950 F NFR Date Time Provider Department 11/26/18 DAVID LINTON During your visit today, we recorded the following information about you: Jason Abdi RN 11/26/2018 11:29 AM Signed Patient contacted office. Patient states injection from 09/17/18 is wearing off. Patient had Bilateral L2,3,4??Lumbar Facet Medial Branch Nerve Blockunder fluoroscopy injections on 06/18/18 and 09/17/18. Patient would like to proceed with RFAs. Patient states her overall improvement with 09/17/18 Facet injection was 90%. Tentative dates for RFAs are December 19, 2018 and January 02, 2019. Patient would like to start with right side first. Isabella Jones APRN.BREAD DUMPER 12/17/2018 2:33 PM Addendum Orders placed for RIGHT L2-3,3-4,4-5 Lumbar Facet RFA under fluoroscopy and then the LEFT side Isabella Jones APRN.BREAD DUMPER 12/17/2018 2:33 PM Signed Addended by: ISABELLA JONES on: 12/17/2018 02:33 PM Modules accepted: Orders Jason Abdi RN 12/17/2018 2:53 PM Signed Patient contacted at this time. Reviewed procedure instructions. Reviewed risks associated with procedure. Patient verbalizes understanding. No additional questions or concerns at this time. Patient instructed consent will obtained day of procedure. Patient educated Dr. Linton will be available for any additional questions or concerns prior to procedure. Allergies As of Date: 11/26/2018 Noted Allergy Reaction ADHESIVE TAPE (ROSINS) 09/10/2006 CARVEDILOL 07/01/2015 3 - Cough CELEBREX (CELECOXIB) 04/26/2012 8 - GI Upset CODEINE 11/10/2004 4 - Hives DEMEROL (MEPERIDINE HCL) 11/10/2004 4 - Hives LEVAQUIN (LEVOFLOXACIN) 11/10/2004 4 - Hives Comments: States has taken since without reaction MELOXICAM 09/24/2009 8 - GI Upset METHOTREXATE 12/22/2014 2 - Rash MONOPRIL (FOSINOPRIL) 11/10/2004 3 - Cough NEURONTIN (GABAPENTIN) 11/10/2004 Comments: headache PERCOCET (OXYCODONE-ACETAMINOPHEN) 2 - Rash ULTRAM (TRAMADOL HCL) 11/10/2004 4 - Hives VERAPAMIL 11/10/2004 VICODIN (HYDROCODONE-ACETAMINOPHE*1 02/21/2014 2 - Rash VOLTAREN (DICLOFENAC SODIUM) 11/10/2004 8 - GI Upset Date Reviewed: 09/17/2018 Reviewed by: Lilliana StewardRn) MARKIE Adams - Fully Assessed Reason for Visit: RFA [Other] Primary Visit Diagnosis:Facet arthropathy [M47.819] Other Visit Diagnosis:DDD (degenerative disc disease), lumbar [M51.36] Order(s):DSTR NROLYTC AGNT PARVERTEB FCT SNGL LMBR/SACRAL [[id number]] Order #: [id number] DSTR NROLYTC AGNT PARVERTEB FCT ADDL LMBR/SACRAL [[id number]] Order #: [id number] Prescriptions as of 11/26/2018 Sig: ASPIRIN 81 MG TABLET,DELAYED * Take 81 mg by mouth once walt* GABAPENTIN 300 MG CAPSULE Take 300 mg by mouth twice da* MONTELUKAST 10 MG TABLET Take 1 tablet by mouth daily * ALBUTEROL SULFATE HFA 90 MCG/* Inhale 2 Puffs as instructed * PANTOPRAZOLE 40 MG TABLET,DEL* TAKE 1 TABLET DAILY ON AN EM* FLUTICASONE PROPIONATE 110 MC* Inhale 1 Puff as instructed t* BIPAP LEVOTHYROXINE 175 MCG TABLET Take 1 tablet by mouth once d* LEVETIRACETAM 1,000 MG TABLET Take 1 tablet by mouth once d* TRIAMTERENE 37.5 MG-HYDROCHLO* Take 1 capsule by mouth once * NABUMETONE 500 MG TABLET TAKE 2 TABLETS ONE TIME DAILY* PREDNISONE 10 MG TABLET Take 1 tablet by mouth as nee* FLUTICASONE PROPIONATE 50 MCG* Use 1-2 Sprays in each nostri* METOPROLOL TARTRATE 50 MG TAB* Take 1 tablet by mouth twice * LOPERAMIDE 2 MG CAPSULE Take 1 capsule by mouth four * CHOLECALCIFEROL (VITAMIN D3) * Take 1 tablet by mouth once d* CYANOCOBALAMIN (VIT B-12) 1,0* Dissolve 1 tablet under the t* CETIRIZINE 10 MG TABLET Take 10 mg by mouth as needed. ADALIMUMAB 40 MG/0.8 ML SUBCU* Inject 40 mg subcutaneously o* PEDIATRIC MULTIVITAMIN-IRON C* TAKE ONE(1) TABLET DAILY WITH* Problem List As Of Date 11/26/2018 Noted Resolved Acquired hypothyroidism [E03.9] More... NEUROPATHY IN OTHER DIS [G63] MALIG JYOTI CORPUS UTERI [C54.9] More... ATRIAL PREMATURE BEATS [I49.1] Essential hypertension [I10] More... Adjustment disorder with depressed mood [F43.21]INVALID FOR* More... CONGENITAL PES PLANUS [Q66.50] INVALID FOR* Hereditary and idiopathic peripheral neuropathy*INVALID FOR* More... DEPRESSIVE DISORDER NEC [F32.9] Anemia [D64.9] INVALID FOR* Hyperlipidemia [E78.5] INVALID FOR* Rheumatoid arthritis (HCC) [M06.9] INVALID FOR* More... Anxiety [F41.9] INVALID FOR* Family history of colon cancer [Z80.0] INVALID FOR* More... History of bariatric surgery [Z98.84] INVALID FOR* More... Benign neoplasm of colon [D12.6] INVALID FOR* Family history of malignant neoplasm of gastroi*INVALID FOR* Acute gastritis without mention of hemorrhage [*INVALID FOR*08/24/2015 Osteoarthritis [M19.90] INVALID FOR* History of uterine cancer [Z85.42] INVALID FOR* Thoracic radiculitis [M54.14] INVALID FOR* Disc displacement, thoracic [M51.24] INVALID FOR* Lumbar radiculopathy [M54.16] INVALID FOR* More... DDD (degenerative disc disease), lumbar [M51.36]INVALID FOR* Carpal tunnel syndrome, left [G56.02] INVALID FOR* Ganglion cyst [M67.40] INVALID FOR* Thoracic radiculopathy [M54.14] INVALID FOR* Thoracic disc disease [M51.9] INVALID FOR* Chronic pain syndrome [G89.4] INVALID FOR* PUD (peptic ulcer disease) [K27.9] INVALID FOR* More... Obesity, Class III, BMI 40-49.9 (morbid obesity*INVALID FOR* Radiculopathy of lumbar region [M54.16] INVALID FOR* More... Spinal stenosis of thoracic region [M48.04] INVALID FOR* Encounter Status:Closed by ISABELLA JONES on 11/26/18 [facility] HISTORY PHYSICALon HISTORY PHYSICAL HNO ID: [id number] Author: David Linton Service: Pain Management Author Type: Physician Type: HANDP Filed: 09/17/2018 1:45 PM Note Text: HISTORY AND PHYSICAL EXAMINATION PATIENT NAME: Iris Blum DATE of SERVICE: 09/17/2018 Iris Blum is here for the pain mangement procedure. The patient presents with persistent pain complaints. Iris Blum denies any interval changes or new pain complaints or focal neurologic deficits. PAST MEDICAL HISTORY Diagnosis Date - Arrhythmia - Asthma - Benign neoplasm of colon - Complication of anesthesia n/v with general anesthetic - Depressive disorder, not elsewhere classified - Endometrial cancer (HCC) 1989 - Esophageal reflux - Fibromyalgia - Fracture of navicular bone of wrist, left, closed - Iron deficiency anemia secondary to blood loss (chronic) - Malignant neoplasm of corpus uteri, except isthmus (HCC) Uterine cancer - EMMETT treated with BiPAP BiPAP 04/12 [facility] [place] [phone] - Other specified anemias - Polyneuropathy in other diseases classified elsewhere (HCC) - Rheumatoid arthritis (HCC) - Seasonal allergies - Snoring - Supraventricular premature beats - Unspecified essential hypertension - Unspecified hypothyroidism PAST SURGICAL HISTORY Procedure Laterality Date - BX OF BREAST; INCISIONAL x 2 Bx of breast, incisional - COLONOSCOP W/ OR W/O BRSH SPEC 09/10/06 - COLONOSCOP W/ OR W/O BRSH SPEC 06/26/2011 Colonoscopy repeat 5 years - EGD W/O OR W/BRUSH/WASH 09/10/06 - GASTRIC BYPASS,OBESITY,SB RECONSTRUC 05/2000 - PAST SURGICAL HISTORY OF 2003 abdominal plasty, thigh plasty - PAST SURGICAL HISTORY OF 2004 brachial plasty - REMOVAL GALLBLADDER 07/24/1996 - REMOVAL OF TONSILS,<14 Y/O 1974 Tonsillectomy - TOTAL ABDOM HYSTERECTOMY 1989 Hysterectomy, NATALIO Social History Socioeconomic History Marital status: Spouse name: Not on file Number of children: 0 Years of education: Not on file Highest education level: Not on file Occupational History 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 Comment: Total 40 plus years of nursing. Social Needs Financial resource strain: Not on file Food insecurity: Worry: Not on file Inability: Not on file Transportation needs: Medical: Not on file Non-medical: Not on file Tobacco Use Smoking status: Never Smoker Smokeless tobacco: Never Used Tobacco comment: Father smoked in childhood home. Substance and Sexual Activity Alcohol use: No Drug use: No Sexual activity: Not on file Lifestyle Physical activity: Days per week: Not on file Minutes per session: Not on file Stress: Not on file Relationships Social connections: Talks on phone: Not on file Gets together: Not on file Attends moravian service: Not on file Active member of club or organization: Not on file Attends meetings of clubs or organizations: Not on file Relationship status: Not on file Intimate partner violence: Fear of current or ex partner: Not on file Emotionally abused: Not on file Physically abused: Not on file Forced sexual activity: Not on file Other Topics Concerns: Not on file Social History Narrative In current home 2 years. No basement. 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 2 cats in home for about a year. No positive PPD. FAMILY HISTORY Problem Relation Age of Onset - Cancer Father lung, - Hypertension Mother - other (tremor) Mother - Stroke Maternal Grandmother - Hypertension Maternal Grandmother - Stroke Maternal Uncle - Diabetes Paternal Grandmother - Diabetes Maternal Grandfather - Diabetes Paternal Uncle - Diabetes Paternal Uncle - Diabetes Paternal Aunt - Diabetes Paternal Aunt - Cancer Maternal Uncle 3 uncles with Leukemia - Cancer Brother colon ALLERGIES Allergen Reactions - Adhesive Tape (Afshan* - Carvedilol Cough - Celebrex [Celecoxib] GI Upset - Codeine Hives - Demerol [Meperidine* Hives - Levaquin [Levofloxa* Hives States has taken since without reaction - Meloxicam GI Upset - Methotrexate Rash - Monopril [Fosinopri* Cough - Neurontin [Gabapent* headache - Percocet [Oxycodone* Rash - Ultram [Tramadol Hc* Hives - Verapamil - Vicodin [Hydrocodon* Rash - Voltaren [Diclofena* GI Upset Current Facility-Administered Medications: NaCl 0.9% iv infusion 30 mL/hr INTRAVENOUS CONTINUOUS Physical Exam: Performed in conjunction with observation. The patient is alert and oriented x3. The patient is in no acute distress. Neck: Supple. The range of motion is intact. Lungs: clear CVR: RRR. Extremities: no reported edema or erythema. Examination indicates no changes Impression: Lumbar facet arthropathy Plan: The informed consent has been obtained. The plan is to proceed with the procedure as planned. SIGNATURE: David Linton MD DATE: September 17, 2018 TIME: 1:45 PM [facility] OPERATIVE NOon 09-17-2018 OPERATIVE NO HNO ID: [id number] Author: David Linton Service: Pain Management Author Type: Physician Type: Operative Report Filed: 09/17/2018 2:05 PM Note Text: PATIENT NAME: Iris Blum SERVICE DATE: 09/17/2018 PROCEDURE NOTE PREOPERATIVE DIAGNOSIS(ES): Lumbar degenerative disc disease. Lumbar spondylosis. Lumbar facet arthropathy POSTOPERATIVE DIAGNOSIS(ES): Same OPERATION: Bilateral L2,3,4 Lumbar Facet Medial Branch Nerve Blockunder fluoroscopy. ? ANESTHESIA: Versed 4 mg, IV ? INDICATIONS: Iris Blum presents for facet joint injection. The pain is persistent. Iris Blum denies any new neurological or pain complaints. The patient has spondylosis at lower lumbar segments with predominant changes at L2-3 and L3-4 levels. As discussed in the office and confirmed today, the plan is to proceed with lumbar facet joint injection. The risks and benefits of the procedure were discussed. Specifically, the risks of bleeding, infection, inadvertent dural puncture, spinal heaches, vasovagal reaction, epidural hematoma, partial or permanent nerve injury were covered. The potential side effects of medications used in procedures including increase in lumbar pain, headaches, facial redness or warmth (flushing), anxiety or mood swings, sleeplessness, fever, high blood sugar, brief reduction in immunity were discussed. The patient expressed understanding of potential risks and wishes to proceed with the procedure. ? OPERATIVE PROCEDURE: The patient was brought to the OR. The patient was positioned prone on the fluoroscopy table. Continuous hemodynamic monitoring was initiated including blood pressure, EKG, and pulse oximetry. IV sedation was administered incrementally to allow the patient to remain comfortable and conversant throughout the procedure. The area of the lumbar spine was prepped povidone-iodine three times and draped into a sterile field. Fluoroscopy was rotated to right oblique projection to identify the location of the L2-3 and L3-4 medial branch nerves at the junctions of the superior articular process and the transverse processes of L2,3,4 respectively. Skin anesthesia was achieved using 10 cc of marcaine 0.25% over the injection sites. A 22 gauge, 5 spinal needle was slowly inserted at each level using AP, lateral and oblique fluoroscopic imaging. Negative aspiration for blood or CSF was confirmed. The fluoroscopy was then rotated to the contralateral side and the needle placement sites were identified. Same technique was used to place the needles on the contralateral side. There were total of 6 needle placements. A total of 6ml of a medication mixture of 5mg of Kenalog per 1ml of Marcaine 0.25% was injected. A total of 6 sites were injected in equal and divided doses. The needles were removed and bleeding was nil. A sterile dressing was applied. The patient tolerated the procedure well. The patient was taken to the recovery room in stable condition. EBL: nil Start time: 1:50 PM End time: 2:01 PM I was present the entire time and personally performed the procedure. SIGNATURE: David Linton MD DATE: September 17, 2018 TIME: 2:05 PM [facility] PT EDon 09-17-2018 PT ED HNO ID: [id number] Author: Lilliana StewardRn) MARKIE Adams Service: Nursing Author Type: Registered Nurse Type: Patient Education Filed: 09/17/2018 2:09 PM Note Text: POST OP LEARNING RESPONSE INSTRUCTION PROVIDED TO: Patient METHOD OF INSTRUCTION: Written instruction - handouts Verbal instruction PATIENT / FAMILY RESPONSE: Information received as demonstrated by interest and questions FOLLOW-UP PLAN: Patient instructed to call with any further issues SUPPLEMENTAL MATERIAL: None REFERRAL (RECOMMENDATION): None Electronically Signed By: Lilliana Adams RN In Department: [facility] SURGERY [facility] PT ED HNO ID: [id number] Author: Tita StewardRn) MARKIE Thomas Service: ? Author Type: Registered Nurse Type: Patient Education Filed: 09/17/2018 12:54 PM Note Text: PRE OP LEARNING ASSESSMENT PROCEDURE/SURGERY: PAIN MANAGEMENT: Bilateral MBB READINESS TO LEARN COGNITIVE ABILITY: Alert and oriented MOTIVATION TO LEARN: Interested FAMILY SUPPORT: High - Very involved in pt care PATIENT LEARNS BEST BY: Verbal Instruction FACTORS AFFECTING LEARNING: None PHYSICAL LIMITATIONS AFFECTING LEARNING: Pain Electronically Signed By: Tita Thomas RN In Department: [facility] SURGERY [facility] XR FLUOROSCOPYon 09-17-2018 XR FLUOROSCOPY * * *Final Report* * * DATE OF EXAM: Sep 17 2018 2:04PM MDR [id number] - XR FLUOROSCOPY / PROCEDURE REASON: pain * * * * Physician Interpretation * * * * INDICATION: Pain management TECHNIQUE: 4 submitted fluoroscopic spot images Fluoroscopic Radiation Summary: Plane A, Air Kerma: 17.6 mGy Plane B, Air Kerma: 0.0 mGy Dose Area Product (DAP): 1808.4 mGy*cmS2 Fluoro time: 0:28 min:sec FINDINGS/ IMPRESSION: 4 submitted fluoroscopic spot images were reviewed. Initial image appears to relate to preprocedural planning. Subsequent images demonstrate multiple needles directed at the mid and lower lumbar spine bilaterally. Refer to the procedure note for details regarding this procedure. Sorter/Assay Tech: PSCB Transcribe Date/Time: Sep 17 2018 2:52P Dictated by : VANITA MITCHELL MD This examination was interpreted and the report reviewed and electronically signed by: VANITA MITCHELL MD on Sep 17 2018 2:56PM EST [id number] [facility] OBSOLETEon 09-03-2018 OBSOLETE Refill (PNMDNA) IRIS BLUM ([id number]) 1950 F NFR Date Time Provider Department 09/03/18 ISABELLA JONES ([facility]) PNMDNA During your visit today, we recorded the following information about you: Allergies As of Date: 09/03/2018 Noted Allergy Reaction ADHESIVE TAPE (ROSINS) 09/10/2006 CARVEDILOL 07/01/2015 3 - Cough CELEBREX (CELECOXIB) 04/26/2012 8 - GI Upset CODEINE 11/10/2004 4 - Hives DEMEROL (MEPERIDINE HCL) 11/10/2004 4 - Hives LEVAQUIN (LEVOFLOXACIN) 11/10/2004 4 - Hives Comments: States has taken since without reaction MELOXICAM 09/24/2009 8 - GI Upset METHOTREXATE 12/22/2014 2 - Rash MONOPRIL (FOSINOPRIL) 11/10/2004 3 - Cough NEURONTIN (GABAPENTIN) 11/10/2004 Comments: headache PERCOCET (OXYCODONE-ACETAMINOPHEN) 2 - Rash ULTRAM (TRAMADOL HCL) 11/10/2004 4 - Hives VERAPAMIL 11/10/2004 VICODIN (HYDROCODONE-ACETAMINOPHE*1 02/21/2014 2 - Rash VOLTAREN (DICLOFENAC SODIUM) 11/10/2004 8 - GI Upset Date Reviewed: 06/18/2018 Reviewed by: Edith (Rn) MARKIE Lynch - Fully Assessed Reason for Visit: Refill Request [94] Prescriptions as of 09/03/2018 Sig: TIZANIDINE 4 MG TABLET Take 1 tablet by mouth twice * ASPIRIN 81 MG TABLET,DELAYED * Take 81 mg by mouth once walt* GABAPENTIN 300 MG CAPSULE Take 300 mg by mouth twice da* MONTELUKAST 10 MG TABLET Take 1 tablet by mouth daily * ALBUTEROL SULFATE HFA 90 MCG/* Inhale 2 Puffs as instructed * PANTOPRAZOLE 40 MG TABLET,DEL* TAKE 1 TABLET DAILY ON AN EM* FLUTICASONE PROPIONATE 110 MC* Inhale 1 Puff as instructed t* BIPAP LEVOTHYROXINE 175 MCG TABLET Take 1 tablet by mouth once d* LEVETIRACETAM 1,000 MG TABLET Take 1 tablet by mouth once d* TRIAMTERENE 37.5 MG-HYDROCHLO* Take 1 capsule by mouth once * NABUMETONE 500 MG TABLET TAKE 2 TABLETS ONE TIME DAILY* PREDNISONE 10 MG TABLET Take 1 tablet by mouth as nee* FLUTICASONE PROPIONATE 50 MCG* Use 1-2 Sprays in each nostri* METOPROLOL TARTRATE 50 MG TAB* Take 1 tablet by mouth twice * LOPERAMIDE 2 MG CAPSULE Take 1 capsule by mouth four * CHOLECALCIFEROL (VITAMIN D3) * Take 1 tablet by mouth once d* CYANOCOBALAMIN (VIT B-12) 1,0* Dissolve 1 tablet under the t* CETIRIZINE 10 MG TABLET Take 10 mg by mouth as needed. ADALIMUMAB 40 MG/0.8 ML SUBCU* Inject 40 mg subcutaneously o* PEDIATRIC MULTIVITAMIN-IRON C* TAKE ONE(1) TABLET DAILY WITH* Problem List As Of Date 09/03/2018 Noted Resolved Acquired hypothyroidism [E03.9] More... NEUROPATHY IN OTHER DIS [G63] MALIG JYOTI CORPUS UTERI [C54.9] More... ATRIAL PREMATURE BEATS [I49.1] Essential hypertension [I10] More... Adjustment disorder with depressed mood [F43.21]INVALID FOR* More... CONGENITAL PES PLANUS [Q66.50] INVALID FOR* Hereditary and idiopathic peripheral neuropathy*INVALID FOR* More... DEPRESSIVE DISORDER NEC [F32.9] Anemia [D64.9] INVALID FOR* Hyperlipidemia [E78.5] INVALID FOR* Rheumatoid arthritis (HCC) [M06.9] INVALID FOR* More... Anxiety [F41.9] INVALID FOR* Family history of colon cancer [Z80.0] INVALID FOR* More... History of bariatric surgery [Z98.84] INVALID FOR* More... Benign neoplasm of colon [D12.6] INVALID FOR* Family history of malignant neoplasm of gastroi*INVALID FOR* Acute gastritis without mention of hemorrhage [*INVALID FOR*08/24/2015 Osteoarthritis [M19.90] INVALID FOR* History of uterine cancer [Z85.42] INVALID FOR* Thoracic radiculitis [M54.14] INVALID FOR* Disc displacement, thoracic [M51.24] INVALID FOR* Lumbar radiculopathy [M54.16] INVALID FOR* More... DDD (degenerative disc disease), lumbar [M51.36]INVALID FOR* Carpal tunnel syndrome, left [G56.02] INVALID FOR* Ganglion cyst [M67.40] INVALID FOR* Thoracic radiculopathy [M54.14] INVALID FOR* Thoracic disc disease [M51.9] INVALID FOR* Chronic pain syndrome [G89.4] INVALID FOR* PUD (peptic ulcer disease) [K27.9] INVALID FOR* More... Obesity, Class III, BMI 40-49.9 (morbid obesity*INVALID FOR* Radiculopathy of lumbar region [M54.16] INVALID FOR* More... Spinal stenosis of thoracic region [M48.04] INVALID FOR* Encounter Status:Closed by JASON ABDI RN on 09/03/18 [facility] 09-02-2018 [facility] Patient:Waqas Blum MRN: Height:5' 5(1.651 m) Weight:313 lb (141.976 kg) Outpatient Medications as of 09/17/18: tiZANidine (ZANAFLEX) 4 mg tablet aspirin, enteric coated (ASPIRIN, ENTERIC COATED) 81 mg EC tablet gabapentin (NEURONTIN) 300 mg capsule montelukast (SINGULAIR) 10 mg tablet albuterol HFA (VENTOLIN HFA) 90 mcg/actuation inhaler pantoprazole DR (PROTONIX) 40 mg tablet fluticasone (FLOVENT) 110 mcg/actuation inhaler BIPAP levothyroxine (SYNTHROID) 175 mcg tablet levETIRAcetam (KEPPRA) 1,000 mg tablet triamterene-hydrochlorothia zide 37.5-25 mg per capsule nabumetone (RELAFEN) 500 mg tablet predniSONE (DELTASONE) 10 mg tablet fluticasone (FLONASE) 50 mcg/actuation nasal spray metoprolol tartrate, short acting, (LOPRESSOR) 50 mg tablet loperamide (IMODIUM) 2 mg cap(s) Cholecalciferol, Vitamin D3, 2,000 unit cap Cyanocobalamin (VITAMIN B-12) 1,000 mcg subl cetirizine (ZYRTEC) 10 mg tablet adalimumab (HUMIRA) 40 mg/0.8 mL injection pediatric multivitamins with iron (FLINTSTONES PLUS IRON) ORAL chewable tablet Admission/Clinic Administered Medications as of 09/17/18: NaCl 0.9% iv infusion Problem List: Acquired hypothyroidism [E03.9] Polyneuropathy in other diseases classified elsewhere ([facility]) [G63] Malignant neoplasm of corpus uteri, except isthmus ([facility]) [C54.9] Supraventricular premature beats [I49.1] Essential hypertension [I10] Adjustment disorder with depressed mood [F43.21] 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] Depressive disorder, not elsewhere classified [F32.9] Anemia [D64.9] Hyperlipidemia [E78.5] Rheumatoid arthritis (HCC) [M06.9] Anxiety [F41.9] Family history of colon cancer [Z80.0] History of bariatric surgery [Z98.84] Benign neoplasm of colon [D12.6] Family history of malignant neoplasm of gastrointestinal tract [Z80.0] Osteoarthritis [M19.90] History of uterine cancer [Z85.42] Thoracic radiculitis [M54.14] Disc displacement, thoracic [M51.24] Lumbar radiculopathy [M54.16] DDD (degenerative disc disease), lumbar [M51.36] Carpal tunnel syndrome, left [G56.02] Ganglion cyst [M67.40] Thoracic radiculopathy [M54.14] Thoracic disc disease [M51.9] Chronic pain syndrome [G89.4] PUD (peptic ulcer disease) [K27.9] Obesity, Class III, BMI 40-49.9 (morbid obesity) ([facility]) [E66.01] Radiculopathy of lumbar region [M54.16] Spinal stenosis of thoracic region [M48.04] Allergies: Adhesive Tape (Rosins) Carvedilol Celebrex [Celecoxib] Codeine Demerol [Meperidine Hcl] Levaquin [Levofloxacin] Meloxicam Methotrexate Monopril [Fosinopril] Neurontin [Gabapentin] Percocet [Oxycodone-Acetaminophen] Ultram [Tramadol Hcl] Verapamil Vicodin [Hydrocodone-Acetaminophen] Voltaren [Diclofenac Sodium] Date Verified: 09/17/18 Lab Values No results within the last 30 days for the following basenames: K,HCT Progress Notes ([facility]): Isabella Jones APRN.BREAD DUMPER 08/30/2018 2:37 PM Signed Please call patient to schedule Bilateral L2,3,4 Lumbar Facet Medial Branch Nerve Blockunder fluoroscopy. ? Progress Notes ([facility]): Jason Abdi RN 08/23/2018 4:17 PM Signed 06/18/18 patient had Bilateral L2,3,4 Lumbar facet medial branch block with fluoroscopy. Patient contacted office on Sunday. Patient states she had 75-80% improvement from this procedure. States improved pain lasted about 1.5months. Patient states pain is now just starting to become more constant and sharp/stabbing. Low back and right lower extremity. Patient currently rates pain at 8/10. Patient would like repeat injection. Isabella Jones APRN.CNP 08/26/2018 11:21 AM Signed Plan would be to repeat the bilateral lumbar facet injection. If she has good improvement again then can proceed with RFAs If she would like to schedule repeat facet I will put the order in and you can schedule for procedure Whitney Barnett RN 08/29/2018 11:21 AM Signed Patient requesting a return call Hi my name is Iris jasso. Phone no. is [phone] and my date of is :1950. I called in last week and spoke with Sydnee and she said if I did not hear back by today to call back in so I'm just checking to see if there's any word from Dr. Leos(?) about whether I could go ahead and be scheduled to have another nerve block done on my back. I'm having an awful lot of pain in my back and right side. So I just would like some relief. I don't know what he decided. So I'd appreciate if you could call me back and you have a good day. Again it's [phone]. Thank you. Jason Abdi RN 09/02/2018 10:19 AM Signed Patient scheduled for September 17 2018. [facility] OBSOLETEon 09-02-2018 OBSOLETE Orders Only (PNMDNA) IRIS BLUM ([id number]) 1950 F NFR Date Time Provider Department 09/02/18 DAVID LINTON During your visit today, we recorded the following information about you: Allergies As of Date: 09/02/2018 Noted Allergy Reaction ADHESIVE TAPE (ROSINS) 09/10/2006 CARVEDILOL 07/01/2015 3 - Cough CELEBREX (CELECOXIB) 04/26/2012 8 - GI Upset CODEINE 11/10/2004 4 - Hives DEMEROL (MEPERIDINE HCL) 11/10/2004 4 - Hives LEVAQUIN (LEVOFLOXACIN) 11/10/2004 4 - Hives Comments: States has taken since without reaction MELOXICAM 09/24/2009 8 - GI Upset METHOTREXATE 12/22/2014 2 - Rash MONOPRIL (FOSINOPRIL) 11/10/2004 3 - Cough NEURONTIN (GABAPENTIN) 11/10/2004 Comments: headache PERCOCET (OXYCODONE-ACETAMINOPHEN) 2 - Rash ULTRAM (TRAMADOL HCL) 11/10/2004 4 - Hives VERAPAMIL 11/10/2004 VICODIN (HYDROCODONE-ACETAMINOPHE*1 02/21/2014 2 - Rash VOLTAREN (DICLOFENAC SODIUM) 11/10/2004 8 - GI Upset Date Reviewed: 06/18/2018 Reviewed by: Edith (Rn) MARKIE Lynch - Fully Assessed Order(s):SURGICAL REQUEST - ELECTIVE [[id number]] Order #: [id number]: 1 Prescriptions as of 09/02/2018 Sig: TIZANIDINE 4 MG TABLET Take 1 tablet by mouth twice * ASPIRIN 81 MG TABLET,DELAYED * Take 81 mg by mouth once walt* GABAPENTIN 300 MG CAPSULE Take 300 mg by mouth twice da* MONTELUKAST 10 MG TABLET Take 1 tablet by mouth daily * ALBUTEROL SULFATE HFA 90 MCG/* Inhale 2 Puffs as instructed * PANTOPRAZOLE 40 MG TABLET,DEL* TAKE 1 TABLET DAILY ON AN EM* FLUTICASONE PROPIONATE 110 MC* Inhale 1 Puff as instructed t* BIPAP LEVOTHYROXINE 175 MCG TABLET Take 1 tablet by mouth once d* LEVETIRACETAM 1,000 MG TABLET Take 1 tablet by mouth once d* TRIAMTERENE 37.5 MG-HYDROCHLO* Take 1 capsule by mouth once * NABUMETONE 500 MG TABLET TAKE 2 TABLETS ONE TIME DAILY* PREDNISONE 10 MG TABLET Take 1 tablet by mouth as nee* FLUTICASONE PROPIONATE 50 MCG* Use 1-2 Sprays in each nostri* METOPROLOL TARTRATE 50 MG TAB* Take 1 tablet by mouth twice * LOPERAMIDE 2 MG CAPSULE Take 1 capsule by mouth four * CHOLECALCIFEROL (VITAMIN D3) * Take 1 tablet by mouth once d* CYANOCOBALAMIN (VIT B-12) 1,0* Dissolve 1 tablet under the t* CETIRIZINE 10 MG TABLET Take 10 mg by mouth as needed. ADALIMUMAB 40 MG/0.8 ML SUBCU* Inject 40 mg subcutaneously o* PEDIATRIC MULTIVITAMIN-IRON C* TAKE ONE(1) TABLET DAILY WITH* Problem List As Of Date 09/02/2018 Noted Resolved Acquired hypothyroidism [E03.9] More... NEUROPATHY IN OTHER DIS [G63] MALIG JYOTI CORPUS UTERI [C54.9] More... ATRIAL PREMATURE BEATS [I49.1] Essential hypertension [I10] More... Adjustment disorder with depressed mood [F43.21]INVALID FOR* More... CONGENITAL PES PLANUS [Q66.50] INVALID FOR* Hereditary and idiopathic peripheral neuropathy*INVALID FOR* More... DEPRESSIVE DISORDER NEC [F32.9] Anemia [D64.9] INVALID FOR* Hyperlipidemia [E78.5] INVALID FOR* Rheumatoid arthritis (HCC) [M06.9] INVALID FOR* More... Anxiety [F41.9] INVALID FOR* Family history of colon cancer [Z80.0] INVALID FOR* More... History of bariatric surgery [Z98.84] INVALID FOR* More... Benign neoplasm of colon [D12.6] INVALID FOR* Family history of malignant neoplasm of gastroi*INVALID FOR* Acute gastritis without mention of hemorrhage [*INVALID FOR*08/24/2015 Osteoarthritis [M19.90] INVALID FOR* History of uterine cancer [Z85.42] INVALID FOR* Thoracic radiculitis [M54.14] INVALID FOR* Disc displacement, thoracic [M51.24] INVALID FOR* Lumbar radiculopathy [M54.16] INVALID FOR* More... DDD (degenerative disc disease), lumbar [M51.36]INVALID FOR* Carpal tunnel syndrome, left [G56.02] INVALID FOR* Ganglion cyst [M67.40] INVALID FOR* Thoracic radiculopathy [M54.14] INVALID FOR* Thoracic disc disease [M51.9] INVALID FOR* Chronic pain syndrome [G89.4] INVALID FOR* PUD (peptic ulcer disease) [K27.9] INVALID FOR* More... Obesity, Class III, BMI 40-49.9 (morbid obesity*INVALID FOR* Radiculopathy of lumbar region [M54.16] INVALID FOR* More... Spinal stenosis of thoracic region [M48.04] INVALID FOR* Encounter Status:Closed by JASON ABDI RN on 09/02/18 [facility] OBSOLETEon 08-16-2018 OBSOLETE Refill (PNMDNA) IRIS BLUM ([id number]) 1950 F NFR Date Time Provider Department 08/16/18 ISABELLA JONES ([facility]) PNMDNA During your visit today, we recorded the following information about you: Jason Abdi RN 08/16/2018 3:14 PM Signed [facility] sent fax requesting refill for patient of Tizanidine Hcl Tabs 4mg 90 day supply requesting with 4 refills. Isabella Jones APRN.BREAD DUMPER 08/19/2018 7:57 AM Signed Medication e scripted to [facility] mail order Allergies As of Date: 08/16/2018 Noted Allergy Reaction ADHESIVE TAPE (ROSINS) 09/10/2006 CARVEDILOL 07/01/2015 3 - Cough CELEBREX (CELECOXIB) 04/26/2012 8 - GI Upset CODEINE 11/10/2004 4 - Hives DEMEROL (MEPERIDINE HCL) 11/10/2004 4 - Hives LEVAQUIN (LEVOFLOXACIN) 11/10/2004 4 - Hives Comments: States has taken since without reaction MELOXICAM 09/24/2009 8 - GI Upset METHOTREXATE 12/22/2014 2 - Rash MONOPRIL (FOSINOPRIL) 11/10/2004 3 - Cough NEURONTIN (GABAPENTIN) 11/10/2004 Comments: headache PERCOCET (OXYCODONE-ACETAMINOPHEN) 2 - Rash ULTRAM (TRAMADOL HCL) 11/10/2004 4 - Hives VERAPAMIL 11/10/2004 VICODIN (HYDROCODONE-ACETAMINOPHE*1 02/21/2014 2 - Rash VOLTAREN (DICLOFENAC SODIUM) 11/10/2004 8 - GI Upset Date Reviewed: 06/18/2018 Reviewed by: Edith (Rn) MARKIE Lynch - Fully Assessed Reason for Visit: Refill Request [94] Order(s):tiZANidine (ZANAFLEX) 4 mg tabletTake 1 tablet by mouth twice daily as needed.Disp: 180 tabletRfl: 3 Prescriptions as of 08/16/2018 Sig: TIZANIDINE 4 MG TABLET Take 1 tablet by mouth twice * ASPIRIN 81 MG TABLET,DELAYED * Take 81 mg by mouth once walt* GABAPENTIN 300 MG CAPSULE Take 300 mg by mouth twice da* MONTELUKAST 10 MG TABLET Take 1 tablet by mouth daily * ALBUTEROL SULFATE HFA 90 MCG/* Inhale 2 Puffs as instructed * PANTOPRAZOLE 40 MG TABLET,DEL* TAKE 1 TABLET DAILY ON AN EM* FLUTICASONE PROPIONATE 110 MC* Inhale 1 Puff as instructed t* BIPAP LEVOTHYROXINE 175 MCG TABLET Take 1 tablet by mouth once d* LEVETIRACETAM 1,000 MG TABLET Take 1 tablet by mouth once d* TRIAMTERENE 37.5 MG-HYDROCHLO* Take 1 capsule by mouth once * NABUMETONE 500 MG TABLET TAKE 2 TABLETS ONE TIME DAILY* PREDNISONE 10 MG TABLET Take 1 tablet by mouth as nee* FLUTICASONE PROPIONATE 50 MCG* Use 1-2 Sprays in each nostri* METOPROLOL TARTRATE 50 MG TAB* Take 1 tablet by mouth twice * LOPERAMIDE 2 MG CAPSULE Take 1 capsule by mouth four * CHOLECALCIFEROL (VITAMIN D3) * Take 1 tablet by mouth once d* CYANOCOBALAMIN (VIT B-12) 1,0* Dissolve 1 tablet under the t* CETIRIZINE 10 MG TABLET Take 10 mg by mouth as needed. ADALIMUMAB 40 MG/0.8 ML SUBCU* Inject 40 mg subcutaneously o* PEDIATRIC MULTIVITAMIN-IRON C* TAKE ONE(1) TABLET DAILY WITH* Problem List As Of Date 08/16/2018 Noted Resolved Acquired hypothyroidism [E03.9] More... NEUROPATHY IN OTHER DIS [G63] MALIG JYOTI CORPUS UTERI [C54.9] More... ATRIAL PREMATURE BEATS [I49.1] Essential hypertension [I10] More... Adjustment disorder with depressed mood [F43.21]INVALID FOR* More... CONGENITAL PES PLANUS [Q66.50] INVALID FOR* Hereditary and idiopathic peripheral neuropathy*INVALID FOR* More... DEPRESSIVE DISORDER NEC [F32.9] Anemia [D64.9] INVALID FOR* Hyperlipidemia [E78.5] INVALID FOR* Rheumatoid arthritis (HCC) [M06.9] INVALID FOR* More... Anxiety [F41.9] INVALID FOR* Family history of colon cancer [Z80.0] INVALID FOR* More... History of bariatric surgery [Z98.84] INVALID FOR* More... Benign neoplasm of colon [D12.6] INVALID FOR* Family history of malignant neoplasm of gastroi*INVALID FOR* Acute gastritis without mention of hemorrhage [*INVALID FOR*08/24/2015 Osteoarthritis [M19.90] INVALID FOR* History of uterine cancer [Z85.42] INVALID FOR* Thoracic radiculitis [M54.14] INVALID FOR* Disc displacement, thoracic [M51.24] INVALID FOR* Lumbar radiculopathy [M54.16] INVALID FOR* More... DDD (degenerative disc disease), lumbar [M51.36]INVALID FOR* Carpal tunnel syndrome, left [G56.02] INVALID FOR* Ganglion cyst [M67.40] INVALID FOR* Thoracic radiculopathy [M54.14] INVALID FOR* Thoracic disc disease [M51.9] INVALID FOR* Chronic pain syndrome [G89.4] INVALID FOR* PUD (peptic ulcer disease) [K27.9] INVALID FOR* More... Obesity, Class III, BMI 40-49.9 (morbid obesity*INVALID FOR* Radiculopathy of lumbar region [M54.16] INVALID FOR* More... Spinal stenosis of thoracic region [M48.04] INVALID FOR* Prescriptions ordered this encounter Disp Refills Start End TIZANIDINE 4 MG TABLET 180 * 3 08/19/2018 11/17/2018 Route: ORAL Sig: Take 1 tablet by mouth twice daily as needed. Encounter Status:Closed by ISABELLA JONES on 08/19/18 Normal [facility] HISTORY PHYSICALon HISTORY PHYSICAL HNO ID: [id number] Author: David Linton Service: Pain Management Author Type: Physician Type: HANDP Filed: 06/18/2018 9:10 AM Note Text: HISTORY AND PHYSICAL EXAMINATION PATIENT NAME: Iris Blum DATE of SERVICE: 06/18/2018 Iris Blum is here for the pain mangement procedure. The patient presents with persistent pain complaints. Iris Blum denies any interval changes or new pain complaints or focal neurologic deficits. PAST MEDICAL HISTORY Diagnosis Date - Arrhythmia - Asthma - Benign neoplasm of colon - Complication of anesthesia n/v with general anesthetic - Depressive disorder, not elsewhere classified - Endometrial cancer (HCC) 1989 - Esophageal reflux - Fibromyalgia - Fracture of navicular bone of wrist, left, closed - Iron deficiency anemia secondary to blood loss (chronic) - Malignant neoplasm of corpus uteri, except isthmus (HCC) Uterine cancer - EMMETT treated with BiPAP BiPAP 04/12 [facility] [phone] - Other specified anemias - Polyneuropathy in other diseases classified elsewhere (HCC) - Rheumatoid arthritis (HCC) - Seasonal allergies - Snoring - Supraventricular premature beats - Unspecified essential hypertension - Unspecified hypothyroidism PAST SURGICAL HISTORY Procedure Laterality Date - BX OF BREAST; INCISIONAL x 2 Bx of breast, incisional - COLONOSCOP W/ OR W/O [facility] SPEC 09/10/06 - COLONOSCOP W/ OR W/O [facility] SPEC 06/26/2011 Colonoscopy repeat 5 years - EGD W/O OR W/BRUSH/WASH 09/10/06 - GASTRIC BYPASS,OBESITY,SB RECONSTRUC 05/2000 - PAST SURGICAL HISTORY OF 2003 abdominal plasty, thigh plasty - PAST SURGICAL HISTORY OF 2004 brachial plasty - REMOVAL GALLBLADDER 07/24/1996 - REMOVAL OF TONSILS,<12 Y/O 1974 Tonsillectomy - TOTAL ABDOM HYSTERECTOMY 1989 Hysterectomy, NATALIO Social History Socioeconomic History Marital status: Spouse name: Not on file Number of children: 0 Years of education: Not on file Highest education level: Not on file Social Needs Financial resource strain: Not on file Food insecurity - worry: Not on file Food insecurity - inability: Not on file Transportation needs - medical: Not on file Transportation needs - non-medical: Not on file Occupational History 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 Comment: Total 40 plus years of nursing. Tobacco Use Smoking status: Never Smoker Smokeless tobacco: Never Used Tobacco comment: Father smoked in childhood home. Substance and Sexual Activity Alcohol use: No Drug use: No Sexual activity: Not on file Other Topics Concerns: Not on file Social History Narrative In current home 2 years. No basement. 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 2 cats in home for about a year. No positive PPD. FAMILY HISTORY Problem Relation Age of Onset - Cancer Father lung, - Hypertension Mother - other (tremor) Mother - Stroke Maternal Grandmother - Hypertension Maternal Grandmother - Stroke Maternal Uncle - Diabetes Paternal Grandmother - Diabetes Maternal Grandfather - Diabetes Paternal Uncle - Diabetes Paternal Uncle - Diabetes Paternal Aunt - Diabetes Paternal Aunt - Cancer Maternal Uncle 3 uncles with Leukemia - Cancer Brother colon ALLERGIES Allergen Reactions - Adhesive Tape (Afshan* - Carvedilol Cough - Celebrex [Celecoxib] GI Upset - Codeine Hives - Demerol [Meperidine* Hives - Levaquin [Levofloxa* Hives States has taken since without reaction - Meloxicam GI Upset - Methotrexate Rash - Monopril [Fosinopri* Cough - Neurontin [Gabapent* headache - Percocet [Oxycodone* Rash - Ultram [Tramadol Hc* Hives - Verapamil - Vicodin [Hydrocodon* Rash - Voltaren [Diclofena* GI Upset Current Facility-Administered Medications: NaCl 0.9% iv infusion 30 mL/hr INTRAVENOUS CONTINUOUS Physical Exam: Performed in conjunction with observation. The patient is alert and oriented x3. The patient is in no acute distress. Neck: Supple. The range of motion is intact. Lungs: clear CVR: RRR. Extremities: no reported edema or erythema. Examination indicates no changes Impression: Lumbar facet arthropathy Plan: The informed consent has been obtained. The plan is to proceed with the procedure as planned. SIGNATURE: David Linton MD DATE: June 18, 2018 TIME: 9:09 AM [facility] NURSING PROGon 06-18-2018 NURSING PROG HNO ID: [id number] Author: Edith (Rn) MARKIE Lynch Service: Nursing Author Type: Registered Nurse Type: Nursing Progress Note Filed: 06/18/2018 9:52 AM Note Text: 0933 pt to PACU. AANDOx3. PARKINSON TCx4. Denies pain. PIV d/c'd drsg on. Back drsg's DANDI. VSS no s/sx of distress. [facility] OPERATIVE NOon 06-18-2018 OPERATIVE NO HNO ID: [id number] Author: David Linton Service: Pain Management Author Type: Physician Type: Operative Report Filed: 06/18/2018 9:31 AM Note Text: PATIENT NAME: Iris Blum SERVICE DATE: 06/18/2018 PROCEDURE NOTE PREOPERATIVE DIAGNOSIS(ES): Lumbar degenerative disc disease. Lumbar spondylosis. Lumbar facet arthropathy POSTOPERATIVE DIAGNOSIS(ES): Same OPERATION: Bilateral L2,3,4 Lumbar Facet Medial Branch Nerve Blockunder fluoroscopy. ANESTHESIA: Versed 4 mg, IV INDICATIONS: Iris Blum presents for facet joint injection. The pain is persistent. Iris Blum denies any new neurological or pain complaints. The patient has spondylosis at lower lumbar segments with predominant changes at L2-3 and L3-4 levels. As discussed in the office and confirmed today, the plan is to proceed with lumbar facet joint injection. The risks and benefits of the procedure were discussed. Specifically, the risks of bleeding, infection, inadvertent dural puncture, spinal heaches, vasovagal reaction, epidural hematoma, partial or permanent nerve injury were covered. The potential side effects of medications used in procedures including increase in lumbar pain, headaches, facial redness or warmth (flushing), anxiety or mood swings, sleeplessness, fever, high blood sugar, brief reduction in immunity were discussed. The patient expressed understanding of potential risks and wishes to proceed with the procedure. OPERATIVE PROCEDURE: The patient was brought to the OR. The patient was positioned prone on the fluoroscopy table. Continuous hemodynamic monitoring was initiated including blood pressure, EKG, and pulse oximetry. IV sedation was administered incrementally to allow the patient to remain comfortable and conversant throughout the procedure. The area of the lumbar spine was prepped povidone-iodine three times and draped into a sterile field. Fluoroscopy was rotated to right oblique projection to identify the location of the L2-3 and L3-4 medial branch nerves at the junctions of the superior articular process and the transverse processes of L2,3,4 respectively. Skin anesthesia was achieved using 10 cc of marcaine 0.25% over the injection sites. A 22 gauge, 5 spinal needle was slowly inserted at each level using AP, lateral and oblique fluoroscopic imaging. Negative aspiration for blood or CSF was confirmed. The fluoroscopy was then rotated to the contralateral side and the needle placement sites were identified. Same technique was used to place the needles on the contralateral side. There were total of 6 needle placements. A total of 6ml of a medication mixture of 5mg of Kenalog per 1ml of Marcaine 0.25% was injected. A total of 6 sites were injected in equal and divided doses. The needles were removed and bleeding was nil. A sterile dressing was applied. The patient tolerated the procedure well. The patient was taken to the recovery room in stable condition. EBL: nil Start time: 9:18 AM End time: 9:28 AM I was present the entire time and personally performed the procedure. SIGNATURE: David Linton MD DATE: June 18, 2018 TIME: 9:29 AM [facility] 06-18-2018 PT ED HNO ID: [id number] Author: Edith StewardRnMerary Lynch RN Service: Nursing Author Type: Registered Nurse Type: Patient Education Filed: 06/18/2018 9:31 AM Note Text: POST OP LEARNING RESPONSE INSTRUCTION PROVIDED TO: Patient METHOD OF INSTRUCTION: Individual instruction PATIENT / FAMILY RESPONSE: Verbalizes understanding of: POST-PROCEDURE INSTRUCTIONS-Correct actions to take to reduce post procedure complications FOLLOW-UP PLAN: Complete - No need for follow-up SUPPLEMENTAL MATERIAL: None REFERRAL (RECOMMENDATION): None Electronically Signed By: Edith Lynch RN In Department: [facility] SURGERY [facility] PT ED HNO ID: [id number] Author: Sheela StewardRnMerary Bae RN Service: Nursing Author Type: Registered Nurse Type: Patient Education Filed: 06/18/2018 8:31 AM Note Text: PRE OP LEARNING ASSESSMENT PROCEDURE/SURGERY: pain injection READINESS TO LEARN COGNITIVE ABILITY: Alert and oriented MOTIVATION TO LEARN: Eager Interested FAMILY SUPPORT: Unable to assess - Family not present PATIENT LEARNS BEST BY: Individual Instruction Written Instruction - Hand-outs Verbal Instruction FACTORS AFFECTING LEARNING: None PHYSICAL LIMITATIONS AFFECTING LEARNING: None Electronically Signed By: Sheela Bae RN In Department: [facility] XR FLUOROSCOPYon 06-18-2018 XR FLUOROSCOPY * * *Final Report* * * DATE OF EXAM: Jun 18 2018 9:34AM [facility] [id number] - XR FLUOROSCOPY / PROCEDURE REASON: PAIN * * * * Physician Interpretation * * * * INDICATION: Pain management TECHNIQUE: 4 submitted fluoroscopic spot images Fluoroscopic Radiation Summary: Plane A, Air Kerma: 23.4 mGy Plane B, Air Kerma: 0.0 mGy Dose Area Product (DAP): 3740.1 mGy*cmS2 Fluoro time: 0:40 min:sec FINDINGS/ IMPRESSION: 4 submitted for separate spot images demonstrate multiple needles directed at the thoracolumbar spine bilaterally. Refer to the procedure note for details regarding this procedure. Sorter/Assay Tech: YANET Transcribe Date/Time: Jun 18 2018 9:47A Dictated by : VANITA MITCHELL MD This examination was interpreted and the report reviewed and electronically signed by: VANITA MITCHELL MD on Jun 18 2018 9:48AM EST [id number] [facility] CNOVon 05-29-2018 [facility] Office Visit (PNMDNA ) IRIS BLUM ([id number]) 1950 F NFR Date Time Provider Department 05/29/18 2:30 PM DAVID LINTON During your visit today, we recorded the following information about you: Pulse Weight 77/minute 142 kg David Linton MD 05/29/2018 3:58 PM Signed [facility] NOTE DATE: May 29, 2018 Chief Complaint: chronic lower back SUBJECTIVE: Ms. Blum [facility] office for a follow up appointment regarding chronic lower back pain. She states that since the last visit symptoms have been persistent. The pain is located in the lower back Right side area and radiates down the posterior leg. The pain is described as sharp and is rated as 8 on a scale of 0-10. The patient Reports numbness. Symptoms interfere with physical activity and work. The pain is exacerbated by any movement. The pain is mitigated by medications and heat. The patient notes no improvement from the previous procedure(s) (epidural steroid injection ). She is currently receiving medications through the [facility]. She is not having difficulty with her [facility] medications. The medications are effective and partially effective. The patient states the last dose of . xanaflex was taken at Yesterday evening. REVIEW OF SYSTEMS: Constitutional: (-) Fever (-) Night Sweats (+) Weight Gain (-) Weight Loss (-) Fatigue Cardiovascular: (-) Chest Pain (-) Palpitations (-) Lightheadedness (-) Swelling of Ankles (-) Hx Heart Surgery Respiratory: (-) Shortness of Breath (-) Cough (-) Wheezing (-) Snoring Gastrointestinal: (-) Incontinence (-) Abdominal Pain (-) Diarrhea (-) Constipation (-) Nausea/Vomiting (-) Heart Burn Endocrine: (-) Thyroid Disorder (-) Diabetes Hematologic: (-) Prolonged Bleeding (-) Easy Bruising Genitourinary: (-) Incontinence (-) Frequency (-) Urinary Urgency Skin: (-) Rashes (-) Itching (-) Other Lesions Neurologic: (-) Headache (-) Double Vision (-) Confusion (-) Paralysis Psychiatric: (-) Depression (+) Anxiety (-) Delusions (-) Hallucinations (-) Personal History of Alcohol or Substance Abuse (-) Family History of Alcohol or Substance Abuse PAST MEDICAL HISTORY Diagnosis Date - Arrhythmia - Asthma - Benign neoplasm of colon - Complication of anesthesia n/v with general anesthetic - Depressive disorder, not elsewhere classified - Endometrial cancer (HCC) 1989 - Esophageal reflux - Fibromyalgia - Fracture of navicular bone of wrist, left, closed - Iron deficiency anemia secondary to blood loss (chronic) - Malignant neoplasm of corpus uteri, except isthmus (HCC) Uterine cancer - EMMETT treated with BiPAP BiPAP 04/12 [facility] [place] [phone] - Other specified anemias - Polyneuropathy in other diseases classified elsewhere (HCC) - Rheumatoid arthritis (HCC) - Seasonal allergies - Snoring - Supraventricular premature beats - Unspecified essential hypertension - Unspecified hypothyroidism PAST SURGICAL HISTORY Procedure Laterality Date - BX OF BREAST; INCISIONAL x 2 Bx of breast, incisional - COLONOSCOP W/ OR W/O [facility] SPEC 09/10/06 - COLONOSCOP W/ OR W/O [facility] SPEC 06/26/2011 Colonoscopy repeat 5 years - EGD W/O OR W/BRUSH/WASH 09/10/06 - GASTRIC BYPASS,OBESITY,SB RECONSTRUC 05/2000 - PAST SURGICAL HISTORY OF 2003 abdominal plasty, thigh plasty - PAST SURGICAL HISTORY OF 2004 brachial plasty - REMOVAL GALLBLADDER 07/24/1996 - REMOVAL OF TONSILS,<12 Y/O 1974 Tonsillectomy - TOTAL ABDOM HYSTERECTOMY 1989 Hysterectomy, NATALIO ALLERGIES Allergen Reactions - Adhesive Tape (Afshan* - Carvedilol Cough - Celebrex [Celecoxib] GI Upset - Codeine Hives - Demerol [Meperidine* Hives - Levaquin [Levofloxa* Hives States has taken since without reaction - Meloxicam GI Upset - Methotrexate Rash - Monopril [Fosinopri* Cough - Neurontin [Gabapent* headache - Percocet [Oxycodone* Rash - Ultram [Tramadol Hc* Hives - Verapamil - Vicodin [Hydrocodon* Rash - Voltaren [Diclofena* GI Upset Current Outpatient Medications: tiZANidine (ZANAFLEX) 4 mg tablet Take 1 tablet by mouth twice daily as needed. (Patient taking differently: Take 4 mg by mouth daily at bedtime. ) gabapentin (NEURONTIN) 300 mg capsule Take 300 mg by mouth twice daily. montelukast (SINGULAIR) 10 mg tablet Take 1 tablet by mouth daily at bedtime. albuterol HFA (VENTOLIN HFA) 90 mcg/actuation inhaler Inhale 2 Puffs as instructed every 6 hours as needed. pantoprazole DR (PROTONIX) 40 mg tablet TAKE 1 TABLET DAILY ON AN EMPTY STOMACH, 1/2 HOUR BEFORE BREAKFAST OR MEAL. BIPAP levothyroxine (SYNTHROID) 175 mcg tablet Take 1 tablet by mouth once daily. levETIRAcetam (KEPPRA) 1,000 mg tablet Take 1 tablet by mouth once daily. triamterene-hydrochlorothia zide 37.5-25 mg per capsule Take 1 capsule by mouth once daily. nabumetone (RELAFEN) 500 mg tablet TAKE 2 TABLETS ONE TIME DAILY WITH FOOD predniSONE (DELTASONE) 10 mg tablet Take 1 tablet by mouth as needed. PER RHEUMATOLOGY fluticasone (FLONASE) 50 mcg/actuation nasal spray Use 1-2 Sprays in each nostril once daily. metoprolol tartrate, short acting, (LOPRESSOR) 50 mg tablet Take 1 tablet by mouth twice daily. loperamide (IMODIUM) 2 mg cap(s) Take 1 capsule by mouth four times daily as needed. Cholecalciferol, Vitamin D3, 2,000 unit cap Take 1 tablet by mouth once daily. Cyanocobalamin (VITAMIN B-12) 1,000 mcg subl Dissolve 1 tablet under the tongue once daily. cetirizine (ZYRTEC) 10 mg tablet Take 10 mg by mouth as needed. adalimumab (HUMIRA) 40 mg/0.8 mL injection Inject 40 mg subcutaneously once each week. Patient has weekly pediatric multivitamins with iron (FLINTSTONES PLUS IRON) ORAL chewable tablet TAKE ONE(1) TABLET DAILY WITH MEAL. fluticasone (FLOVENT) 110 mcg/actuation inhaler Inhale 1 Puff as instructed twice daily. No current facility-administered medications for this visit. I have reviewed the nurses notes and I am aware of the family/social history. Since the last evaluation the medical history has not changed. PHYSICAL EXAMINATION: Vitals: Pulse 77 Wt 313 lb (142.0kg) SpO2 94% Performed in conjunction with observation. The patient is alert and oriented x3. The patient is in no acute distress. Station and Gait: Normal stance, normal gait. Lungs: normal respiratory rate and rhythm. Cardiovascular: regular rate. Neck: Supple. The range of motion is intact. Back: Range of motion of the trunk was generally intact. Spine: Tenderness in the lumbar facets bilaterally at L2-4, Positive facet loading Extremities: no reported edema or erythema. Motor: Exhibits full strength in all four extremities. ASSESSMENT: Patient reports low thoracic to lower back pain. She reports intermittent pain down the right LE both anterior and lateral to the foot. She had a T11-12 TESI on 04-09-18 and reports less than 50% improvement She had recent thoracic and lumbar MRIs to discuss the results for further recommendations. Discuss the importance of daily stretching and exercising and walking. She reports that her and her are thinking about joining the [employer] program. She takes tizanidine at bedtime. She is prescibed gabapentin 300 mg BID and relafen 500 mg BID by her PCP Encounter Diagnosis ICD-10-CM 1. Thoracic radiculitis M54.14 2. Thoracic disc disease M51.9 3. Radiculopathy of lumbar region M54.16 4. DDD (degenerative disc disease), lumbar M51.36 5. Lumbar radiculopathy M54.16 6. Spinal stenosis of thoracic region M48.04 7. Chronic pain syndrome G89.4 PDMP website checked and validated. All prescriptions have been APPROPRIATELY filled. No suspicious activity was identified. 05/29/2018 by Michelle Cross MA Narcotic Agreement reviewed and signed?: N/A on May 29, 2018 The pain panel was N/A PLAN: Prior available imaging studies were reviewed. Findings were discussed. Injection history was reviewed. Medication use and compliance were reviewed. 1. Continue medication management through the patient's current prescribing physician. Relafen and gabapentin 2. Reviewed thoracic and lumbar MRI 3. No refills needed today for tizanidine 4. Interventional procedure options discussed. Recommend bilateral L2,3,4 Facet injection. Consider left L2-3 vs L3-4 TFSI if leg pain is persistent, defer at this time. 5. Encouraged regular home exercise program. Recommend silver sneakers program 6) F/U in 6 weeks The treatment plan was discussed with the patient during the office visit and they verbalized an understanding of it. Isabella Jones APRN.BREAD DUMPER Attending Note I have personally performed a face to face assessment of the patient and have reviewed the PA/RABBLER note. My cardenas findings include: History is reviewed and is as above. Exam is consistent with above. Assessment/Plan are as outlined and with all questions reviewed and discussed. Other additions or changes: None David Linton MD cc: Dr. David Chambers MD cc: SELF Phone: N/A Fax: Results of consultation to be transmitted via electronic medical record for those providers who practice within [facility] or with access to [employer] via MD Connect, or via letter. Referring Provider: SELF [[id number]] Allergies As of Date: 05/29/2018 Noted Allergy Reaction ADHESIVE TAPE (ROSINS) 09/10/2006 CARVEDILOL 07/01/2015 3 - Cough CELEBREX (CELECOXIB) 04/26/2012 8 - GI Upset CODEINE 11/10/2004 4 - Hives DEMEROL (MEPERIDINE HCL) 11/10/2004 4 - Hives LEVAQUIN (LEVOFLOXACIN) 11/10/2004 4 - Hives Comments: States has taken since without reaction MELOXICAM 09/24/2009 8 - GI Upset METHOTREXATE 12/22/2014 2 - Rash MONOPRIL (FOSINOPRIL) 11/10/2004 3 - Cough NEURONTIN (GABAPENTIN) 11/10/2004 Comments: headache PERCOCET (OXYCODONE-ACETAMINOPHEN) 2 - Rash ULTRAM (TRAMADOL HCL) 11/10/2004 4 - Hives VERAPAMIL 11/10/2004 VICODIN (HYDROCODONE-ACETAMINOPHE*1 02/21/2014 2 - Rash VOLTAREN (DICLOFENAC SODIUM) 11/10/2004 8 - GI Upset Date Reviewed: 05/29/2018 Reviewed by: Michelle Fisher) [place] - Fully Assessed Reason for Visit: Recheck [92] Cmt: Pt here for f/u MRI Primary Visit Diagnosis:Thoracic radiculitis [M54.14] Other Visit Diagnoses:Thoracic disc disease [M51.9] Radiculopathy of lumbar region [M54.16] DDD (degenerative disc disease), lumbar [M51.36] Lumbar radiculopathy [M54.16] Spinal stenosis of thoracic region [M48.04] Chronic pain syndrome [G89.4] Facet arthritis of lumbar region [M47.816] Order(s):NJX DX/THER AGT PVRT FACET JT LMBR/SAC 1 LEVEL [[id number]] Order #: [id number] NJX DX/THER AGT PVRT FACET JT LMBR/SAC 2ND LEVEL [[id number]] Order #: [id number] Prescriptions as of 05/29/2018 Sig: TIZANIDINE 4 MG TABLET Take 1 tablet by mouth twice * Patient taking differently: Take 4 mg by mouth daily at b* GABAPENTIN 300 MG CAPSULE Take 300 mg by mouth twice da* MONTELUKAST 10 MG TABLET Take 1 tablet by mouth daily * ALBUTEROL SULFATE HFA 90 MCG/* Inhale 2 Puffs as instructed * PANTOPRAZOLE 40 MG TABLET,DEL* TAKE 1 TABLET DAILY ON AN EM* BIPAP LEVOTHYROXINE 175 MCG TABLET Take 1 tablet by mouth once d* LEVETIRACETAM 1,000 MG TABLET Take 1 tablet by mouth once d* TRIAMTERENE 37.5 MG-HYDROCHLO* Take 1 capsule by mouth once * NABUMETONE 500 MG TABLET TAKE 2 TABLETS ONE TIME DAILY* PREDNISONE 10 MG TABLET Take 1 tablet by mouth as nee* FLUTICASONE PROPIONATE 50 MCG* Use 1-2 Sprays in each nostri* METOPROLOL TARTRATE 50 MG TAB* Take 1 tablet by mouth twice * LOPERAMIDE 2 MG CAPSULE Take 1 capsule by mouth four * CHOLECALCIFEROL (VITAMIN D3) * Take 1 tablet by mouth once d* CYANOCOBALAMIN (VIT B-12) 1,0* Dissolve 1 tablet under the t* CETIRIZINE 10 MG TABLET Take 10 mg by mouth as needed. ADALIMUMAB 40 MG/0.8 ML SUBCU* Inject 40 mg subcutaneously o* PEDIATRIC MULTIVITAMIN-IRON C* TAKE ONE(1) TABLET DAILY WITH* FLUTICASONE PROPIONATE 110 MC* Inhale 1 Puff as instructed t* Problem List As Of Date 05/29/2018 Noted Resolved Acquired hypothyroidism [E03.9] More... NEUROPATHY IN OTHER DIS [G63] MALIG JYOTI CORPUS UTERI [C54.9] More... ATRIAL PREMATURE BEATS [I49.1] Essential hypertension [I10] More... Adjustment disorder with depressed mood [F43.21]INVALID FOR* More... CONGENITAL PES PLANUS [Q66.50] INVALID FOR* Hereditary and idiopathic peripheral neuropathy*INVALID FOR* More... DEPRESSIVE DISORDER NEC [F32.9] Anemia [D64.9] INVALID FOR* Hyperlipidemia [E78.5] INVALID FOR* Rheumatoid arthritis (HCC) [M06.9] INVALID FOR* More... Anxiety [F41.9] INVALID FOR* Family history of colon cancer [Z80.0] INVALID FOR* More... History of bariatric surgery [Z98.84] INVALID FOR* More... Benign neoplasm of colon [D12.6] INVALID FOR* Family history of malignant neoplasm of gastroi*INVALID FOR* Acute gastritis without mention of hemorrhage [*INVALID FOR*08/24/2015 Osteoarthritis [M19.90] INVALID FOR* History of uterine cancer [Z85.42] INVALID FOR* Thoracic radiculitis [M54.14] INVALID FOR* Disc displacement, thoracic [M51.24] INVALID FOR* Lumbar radiculopathy [M54.16] INVALID FOR* More... DDD (degenerative disc disease), lumbar [M51.36]INVALID FOR* Carpal tunnel syndrome, left [G56.02] INVALID FOR* Ganglion cyst [M67.40] INVALID FOR* Thoracic radiculopathy [M54.14] INVALID FOR* Thoracic disc disease [M51.9] INVALID FOR* Chronic pain syndrome [G89.4] INVALID FOR* PUD (peptic ulcer disease) [K27.9] INVALID FOR* More... Obesity, Class III, BMI 40-49.9 (morbid obesity*INVALID FOR* Radiculopathy of lumbar region [M54.16] INVALID FOR* More... Spinal stenosis of thoracic region [M48.04] INVALID FOR* Medications Discontinued During This Encounter diazePAM (VALIUM) 5 mg tablet 5 ta* 0 12/30/2015 05/29/2018 Class: Print RX Route: ORAL Sig: Take 1 tablet by mouth every 6 hours as needed. Disc: Course of therapy completed zolpidem (AMBIEN) 5 mg tablet 0 12/03/2015 05/29/2018 Class: Historical Med Route: ORAL Sig: Take 1 tablet by mouth at bedtime as needed. Disc: Course of therapy completed Encounter Status:Closed by DAVID LINTON MD on 05/29/18 [facility] 05-29-2018 [facility] Patient:Waqas Blum MRN: Height:5' 4.488(1.638 m) Weight:313 lb 0.9 oz (142 kg) Outpatient Medications as of 06/18/18: aspirin, enteric coated (ASPIRIN, ENTERIC COATED) 81 mg EC tablet gabapentin (NEURONTIN) 300 mg capsule montelukast (SINGULAIR) 10 mg tablet albuterol HFA (VENTOLIN HFA) 90 mcg/actuation inhaler pantoprazole DR (PROTONIX) 40 mg tablet fluticasone (FLOVENT) 110 mcg/actuation inhaler BIPAP levothyroxine (SYNTHROID) 175 mcg tablet levETIRAcetam (KEPPRA) 1,000 mg tablet triamterene-hydrochlorothia zide 37.5-25 mg per capsule nabumetone (RELAFEN) 500 mg tablet predniSONE (DELTASONE) 10 mg tablet fluticasone (FLONASE) 50 mcg/actuation nasal spray metoprolol tartrate, short acting, (LOPRESSOR) 50 mg tablet loperamide (IMODIUM) 2 mg cap(s) Cholecalciferol, Vitamin D3, 2,000 unit cap Cyanocobalamin (VITAMIN B-12) 1,000 mcg subl cetirizine (ZYRTEC) 10 mg tablet adalimumab (HUMIRA) 40 mg/0.8 mL injection pediatric multivitamins with iron (FLINTSTONES PLUS IRON) ORAL chewable tablet Admission/Clinic Administered Medications as of 06/18/18: NaCl 0.9% iv infusion Problem List: Acquired hypothyroidism [E03.9] Polyneuropathy in other diseases classified elsewhere ([facility]) [G63] Malignant neoplasm of corpus uteri, except isthmus ([facility]) [C54.9] Supraventricular premature beats [I49.1] Essential hypertension [I10] Adjustment disorder with depressed mood [F43.21] 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] Depressive disorder, not elsewhere classified [F32.9] Anemia [D64.9] Hyperlipidemia [E78.5] Rheumatoid arthritis ([facility]) [M06.9] Anxiety [F41.9] Family history of colon cancer [Z80.0] History of bariatric surgery [Z98.84] Benign neoplasm of colon [D12.6] Family history of malignant neoplasm of gastrointestinal tract [Z80.0] Osteoarthritis [M19.90] History of uterine cancer [Z85.42] Thoracic radiculitis [M54.14] Disc displacement, thoracic [M51.24] Lumbar radiculopathy [M54.16] DDD (degenerative disc disease), lumbar [M51.36] Carpal tunnel syndrome, left [G56.02] Ganglion cyst [M67.40] Thoracic radiculopathy [M54.14] Thoracic disc disease [M51.9] Chronic pain syndrome [G89.4] PUD (peptic ulcer disease) [K27.9] Obesity, Class III, BMI 40-49.9 (morbid obesity) ([facility]) [E66.01] Radiculopathy of lumbar region [M54.16] Spinal stenosis of thoracic region [M48.04] Allergies: Adhesive Tape (Rosins) Carvedilol Celebrex [Celecoxib] Codeine Demerol [Meperidine Hcl] Levaquin [Levofloxacin] Meloxicam Methotrexate Monopril [Fosinopril] Neurontin [Gabapentin] Percocet [Oxycodone-Acetaminophen] Ultram [Tramadol Hcl] Verapamil Vicodin [Hydrocodone-Acetaminophen] Voltaren [Diclofenac Sodium] Date Verified: 06/18/18 Lab Values No results within the last 30 days for the following basenames: K,HCT Progress Notes ([facility]): David Linton MD 05/29/2018 3:58 PM Signed [facility] OFF[facility] NOTE DATE: May 29, 2018 Chief Complaint: chronic lower back SUBJECTIVE: Ms. Blum presents to the [facility] ([facility]) office for a follow up appointment regarding chronic lower back pain. She states that since the last visit symptoms have been persistent. The pain is located in the lower back Right side area and radiates down the posterior leg. The pain is described as sharp and is rated as 8 on a scale of 0-10. The patient Reports numbness. Symptoms interfere with physical activity and work. The pain is exacerbated by any movement. The pain is mitigated by medications and heat. The patient notes no improvement from the previous procedure(s) (epidural steroid injection ). She is currently receiving medications through the [facility]. She is not having difficulty with her [facility] medications. The medications are effective and partially effective. The patient states the last dose of . xanaflex was taken at Yesterday evening. REVIEW OF SYSTEMS: Constitutional: (-) Fever (-) Night Sweats (+) Weight Gain (-) Weight Loss (-) Fatigue Cardiovascular: (-) Chest Pain (-) Palpitations (-) Lightheadedness (-) Swelling of Ankles (-) Hx Heart Surgery Respiratory: (-) Shortness of Breath (-) Cough (-) Wheezing (-) Snoring Gastrointestinal: (-) Incontinence (-) Abdominal Pain (-) Diarrhea (-) Constipation (-) Nausea/Vomiting (-) Heart Burn Endocrine: (-) Thyroid Disorder (-) Diabetes Hematologic: (-) Prolonged Bleeding (-) Easy Bruising Genitourinary: (-) Incontinence (-) Frequency (-) Urinary Urgency Skin: (-) Rashes (-) Itching (-) Other Lesions Neurologic: (-) Headache (-) Double Vision (-) Confusion (-) Paralysis Psychiatric: (-) Depression (+) Anxiety (-) Delusions (-) Hallucinations (-) Personal History of Alcohol or Substance Abuse (-) Family History of Alcohol or Substance Abuse PAST MEDICAL HISTORY Diagnosis Date - Arrhythmia - Asthma - Benign neoplasm of colon - Complication of anesthesia n/v with general anesthetic - Depressive disorder, not elsewhere classified - Endometrial cancer (HCC) 1989 - Esophageal reflux - Fibromyalgia - Fracture of navicular bone of wrist, left, closed - Iron deficiency anemia secondary to blood loss (chronic) - Malignant neoplasm of corpus uteri, except isthmus (HCC) Uterine cancer - EMMETT treated with BiPAP BiPAP 04/12 [facility] [place] [phone] - Other specified anemias - Polyneuropathy in other diseases classified elsewhere (HCC) - Rheumatoid arthritis (HCC) - Seasonal allergies - Snoring - Supraventricular premature beats - Unspecified essential hypertension - Unspecified hypothyroidism PAST SURGICAL HISTORY Procedure Laterality Date - BX OF BREAST; INCISIONAL x 2 Bx of breast, incisional - COLONOSCOP W/ OR W/O [facility] SPEC 09/10/06 - COLONOSCOP W/ OR W/O [facility] SPEC 06/26/2011 Colonoscopy repeat 5 years - EGD W/O OR W/BRUSH/WASH 09/10/06 - GASTRIC BYPASS,OBESITY,SB RECONSTRUC 05/2000 - PAST SURGICAL HISTORY OF 2003 abdominal plasty, thigh plasty - PAST SURGICAL HISTORY OF 2004 brachial plasty - REMOVAL GALLBLADDER 07/24/1996 - REMOVAL OF TONSILS,<14 Y/O 1974 Tonsillectomy - TOTAL ABDOM HYSTERECTOMY 1989 Hysterectomy, NATALIO ALLERGIES Allergen Reactions - Adhesive Tape (Afshan* - Carvedilol Cough - Celebrex [Celecoxib] GI Upset - Codeine Hives - Demerol [Meperidine* Hives - Levaquin [Levofloxa* Hives States has taken since without reaction - Meloxicam GI Upset - Methotrexate Rash - Monopril [Fosinopri* Cough - Neurontin [Gabapent* headache - Percocet [Oxycodone* Rash - Ultram [Tramadol Hc* Hives - Verapamil - Vicodin [Hydrocodon* Rash - Voltaren [Diclofena* GI Upset Current Outpatient Medications: tiZANidine (ZANAFLEX) 4 mg tablet Take 1 tablet by mouth twice daily as needed. (Patient taking differently: Take 4 mg by mouth daily at bedtime. ) gabapentin (NEURONTIN) 300 mg capsule Take 300 mg by mouth twice daily. montelukast (SINGULAIR) 10 mg tablet Take 1 tablet by mouth daily at bedtime. albuterol HFA (VENTOLIN HFA) 90 mcg/actuation inhaler Inhale 2 Puffs as instructed every 6 hours as needed. pantoprazole DR (PROTONIX) 40 mg tablet TAKE 1 TABLET DAILY ON AN EMPTY STOMACH, 1/2 HOUR BEFORE BREAKFAST OR MEAL. BIPAP levothyroxine (SYNTHROID) 175 mcg tablet Take 1 tablet by mouth once daily. levETIRAcetam (KEPPRA) 1,000 mg tablet Take 1 tablet by mouth once daily. triamterene-hydrochlorothia zide 37.5-25 mg per capsule Take 1 capsule by mouth once daily. nabumetone (RELAFEN) 500 mg tablet TAKE 2 TABLETS ONE TIME DAILY WITH FOOD predniSONE (DELTASONE) 10 mg tablet Take 1 tablet by mouth as needed. PER RHEUMATOLOGY fluticasone (FLONASE) 50 mcg/actuation nasal spray Use 1-2 Sprays in each nostril once daily. metoprolol tartrate, short acting, (LOPRESSOR) 50 mg tablet Take 1 tablet by mouth twice daily. loperamide (IMODIUM) 2 mg cap(s) Take 1 capsule by mouth four times daily as needed. Cholecalciferol, Vitamin D3, 2,000 unit cap Take 1 tablet by mouth once daily. Cyanocobalamin (VITAMIN B-12) 1,000 mcg subl Dissolve 1 tablet under the tongue once daily. cetirizine (ZYRTEC) 10 mg tablet Take 10 mg by mouth as needed. adalimumab (HUMIRA) 40 mg/0.8 mL injection Inject 40 mg subcutaneously once each week. Patient has weekly pediatric multivitamins with iron (FLINTSTONES PLUS IRON) ORAL chewable tablet TAKE ONE(1) TABLET DAILY WITH MEAL. fluticasone (FLOVENT) 110 mcg/actuation inhaler Inhale 1 Puff as instructed twice daily. No current facility-administered medications for this visit. I have reviewed the nurses notes and I am aware of the family/social history. Since the last evaluation the medical history has not changed. PHYSICAL EXAMINATION: Vitals: Pulse 77 Wt 313 lb (142.0kg) SpO2 94% Performed in conjunction with observation. The patient is alert and oriented x3. The patient is in no acute distress. Station and Gait: Normal stance, normal gait. Lungs: normal respiratory rate and rhythm. Cardiovascular: regular rate. Neck: Supple. The range of motion is intact. Back: Range of motion of the trunk was generally intact. Spine: Tenderness in the lumbar facets bilaterally at L2-4, Positive facet loading Extremities: no reported edema or erythema. Motor: Exhibits full strength in all four extremities. ASSESSMENT: Patient reports low thoracic to lower back pain. She reports intermittent pain down the right LE both anterior and lateral to the foot. She had a T11-12 TESI on 04-09-18 and reports less than 50% improvement She had recent thoracic and lumbar MRIs to discuss the results for further recommendations. Discuss the importance of daily stretching and exercising and walking. She reports that her and her are thinking about joining the [employer]. She takes tizanidine at bedtime. She is prescibed gabapentin 300 mg BID and relafen 500 mg BID by her PCP Encounter Diagnosis ICD-10-CM 1. Thoracic radiculitis M54.14 2. Thoracic disc disease M51.9 3. Radiculopathy of lumbar region M54.16 4. DDD (degenerative disc disease), lumbar M51.36 5. Lumbar radiculopathy M54.16 6. Spinal stenosis of thoracic region M48.04 7. Chronic pain syndrome G89.4 PDMP website checked and validated. All prescriptions have been APPROPRIATELY filled. No suspicious activity was identified. 05/29/2018 by Michelle Cross MA Narcotic Agreement reviewed and signed?: N/A on May 29, 2018 The pain panel was N/A PLAN: Prior available imaging studies were reviewed. Findings were discussed. Injection history was reviewed. Medication use and compliance were reviewed. 1. Continue medication management through the patient's current prescribing physician. Relafen and gabapentin 2. Reviewed thoracic and lumbar MRI 3. No refills needed today for tizanidine 4. Interventional procedure options discussed. Recommend bilateral L2,3,4 Facet injection. Consider left L2-3 vs L3-4 TFSI if leg pain is persistent, defer at this time. 5. Encouraged regular home exercise program. Recommend silver sneakers program 6) F/U in 6 weeks The treatment plan was discussed with the patient during the office visit and they verbalized an understanding of it. Isabella Jones APRN.BREAD DUMPER Attending Note I have personally performed a face to face assessment of the patient and have reviewed the PA/RABBLER note. My cardenas findings include: History is reviewed and is as above. Exam is consistent with above. Assessment/Plan are as outlined and with all questions reviewed and discussed. Other additions or changes: None David Linton MD cc: Dr. David Chambers MD cc: SELF Phone: N/A Fax: Results of consultation to be transmitted via electronic medical record for those providers who practice within [facility] or with access to [employer] via MD Connect, or via letter. Previous Version Progress Notes ([facility]): Jason Abdi RN 05/24/2018 11:49 AM Signed Attempted to call patient this morning in regards to Dr. Linton's recommendations after reviewing MRI. Patient's voicemail box I not sent up yet. This RN sent my chart message to patient. Will follow up. Jason Abdi RN 05/24/2018 1:21 PM Signed This RN spoke with patient via the phone. Informed patient of Dr. Linton's recommendations. Dr. Linton Recommendation for patient to come in for an appointment to be examined. Patient has bulging discs lower level. Canal stenosis. 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 Ngozi Ennis Pss 05/24/2018 2:27 PM Signed Spoke to patient and scheduled appt with Dr Linton 05/29 at 2:00 pm [facility] PROGRESSon 05-29-2018 PROGRESS HNO ID: [id number] Author: David Linton Service: ? Author Type: Physician Type: Progress Notes Filed: 05/29/2018 3:58 PM Note Text: [facility] NOTE DATE: May 29, 2018 Chief Complaint: chronic lower back SUBJECTIVE: Ms. [facility]um [facility] for a follow up appointment regarding chronic lower back pain. She states that since the last visit symptoms have been persistent. The pain is located in the lower back Right side area and radiates down the posterior leg. The pain is described as sharp and is rated as 8 on a scale of 0-10. The patient Reports numbness. Symptoms interfere with physical activity and work. The pain is exacerbated by any movement. The pain is mitigated by medications and heat. The patient notes no improvement from the previous procedure(s) (epidural steroid injection ). She is currently receiving medications through the [facility]. She is not having difficulty with her [facility] medications. The medications are effective and partially effective. The patient states the last dose of . xanaflex was taken at Yesterday evening. REVIEW OF SYSTEMS: Constitutional: (-) Fever (-) Night Sweats (+) Weight Gain (-) Weight Loss (-) Fatigue Cardiovascular: (-) Chest Pain (-) Palpitations (-) Lightheadedness (-) Swelling of Ankles (-) Hx Heart Surgery Respiratory: (-) Shortness of Breath (-) Cough (-) Wheezing (-) Snoring Gastrointestinal: (-) Incontinence (-) Abdominal Pain (-) Diarrhea (-) Constipation (-) Nausea/Vomiting (-) Heart Burn Endocrine: (-) Thyroid Disorder (-) Diabetes Hematologic: (-) Prolonged Bleeding (-) Easy Bruising Genitourinary: (-) Incontinence (-) Frequency (-) Urinary Urgency Skin: (-) Rashes (-) Itching (-) Other Lesions Neurologic: (-) Headache (-) Double Vision (-) Confusion (-) Paralysis Psychiatric: (-) Depression (+) Anxiety (-) Delusions (-) Hallucinations (-) Personal History of Alcohol or Substance Abuse (-) Family History of Alcohol or Substance Abuse PAST MEDICAL HISTORY Diagnosis Date - Arrhythmia - Asthma - Benign neoplasm of colon - Complication of anesthesia n/v with general anesthetic - Depressive disorder, not elsewhere classified - Endometrial cancer (HCC) 1989 - Esophageal reflux - Fibromyalgia - Fracture of navicular bone of wrist, left, closed - Iron deficiency anemia secondary to blood loss (chronic) - Malignant neoplasm of corpus uteri, except isthmus (HCC) Uterine cancer - EMMETT treated with BiPAP BiPAP 04/12 [facility] [place] [phone] - Other specified anemias - Polyneuropathy in other diseases classified elsewhere (HCC) - Rheumatoid arthritis (HCC) - Seasonal allergies - Snoring - Supraventricular premature beats - Unspecified essential hypertension - Unspecified hypothyroidism PAST SURGICAL HISTORY Procedure Laterality Date - BX OF BREAST; INCISIONAL x 2 Bx of breast, incisional - COLONOSCOP W/ OR W/O [facility] SPEC 09/10/06 - COLONOSCOP W/ OR W/O [facility] SPEC 06/26/2011 Colonoscopy repeat 5 years - EGD W/O OR W/BRUSH/WASH 09/10/06 - GASTRIC BYPASS,OBESITY,SB RECONSTRUC 05/2000 - PAST SURGICAL HISTORY OF 2003 abdominal plasty, thigh plasty - PAST SURGICAL HISTORY OF 2004 brachial plasty - REMOVAL GALLBLADDER 07/24/1996 - REMOVAL OF TONSILS,<14 Y/O 1974 Tonsillectomy - TOTAL ABDOM HYSTERECTOMY 1989 Hysterectomy, NATALIO ALLERGIES Allergen Reactions - Adhesive Tape (Afshan* - Carvedilol Cough - Celebrex [Celecoxib] GI Upset - Codeine Hives - Demerol [Meperidine* Hives - Levaquin [Levofloxa* Hives States has taken since without reaction - Meloxicam GI Upset - Methotrexate Rash - Monopril [Fosinopri* Cough - Neurontin [Gabapent* headache - Percocet [Oxycodone* Rash - Ultram [Tramadol Hc* Hives - Verapamil - Vicodin [Hydrocodon* Rash - Voltaren [Diclofena* GI Upset Current Outpatient Medications: tiZANidine (ZANAFLEX) 4 mg tablet Take 1 tablet by mouth twice daily as needed. (Patient taking differently: Take 4 mg by mouth daily at bedtime. ) gabapentin (NEURONTIN) 300 mg capsule Take 300 mg by mouth twice daily. montelukast (SINGULAIR) 10 mg tablet Take 1 tablet by mouth daily at bedtime. albuterol HFA (VENTOLIN HFA) 90 mcg/actuation inhaler Inhale 2 Puffs as instructed every 6 hours as needed. pantoprazole DR (PROTONIX) 40 mg tablet TAKE 1 TABLET DAILY ON AN EMPTY STOMACH, 1/2 HOUR BEFORE BREAKFAST OR MEAL. BIPAP levothyroxine (SYNTHROID) 175 mcg tablet Take 1 tablet by mouth once daily. levETIRAcetam (KEPPRA) 1,000 mg tablet Take 1 tablet by mouth once daily. triamterene-hydrochlorothia zide 37.5-25 mg per capsule Take 1 capsule by mouth once daily. nabumetone (RELAFEN) 500 mg tablet TAKE 2 TABLETS ONE TIME DAILY WITH FOOD predniSONE (DELTASONE) 10 mg tablet Take 1 tablet by mouth as needed. PER RHEUMATOLOGY fluticasone (FLONASE) 50 mcg/actuation nasal spray Use 1-2 Sprays in each nostril once daily. metoprolol tartrate, short acting, (LOPRESSOR) 50 mg tablet Take 1 tablet by mouth twice daily. loperamide (IMODIUM) 2 mg cap(s) Take 1 capsule by mouth four times daily as needed. Cholecalciferol, Vitamin D3, 2,000 unit cap Take 1 tablet by mouth once daily. Cyanocobalamin (VITAMIN B-12) 1,000 mcg subl Dissolve 1 tablet under the tongue once daily. cetirizine (ZYRTEC) 10 mg tablet Take 10 mg by mouth as needed. adalimumab (HUMIRA) 40 mg/0.8 mL injection Inject 40 mg subcutaneously once each week. Patient has weekly pediatric multivitamins with iron (FLINTSTONES PLUS IRON) ORAL chewable tablet TAKE ONE(1) TABLET DAILY WITH MEAL. fluticasone (FLOVENT) 110 mcg/actuation inhaler Inhale 1 Puff as instructed twice daily. No current facility-administered medications for this visit. I have reviewed the nurses notes and I am aware of the family/social history. Since the last evaluation the medical history has not changed. PHYSICAL EXAMINATION: Vitals: Pulse 77 Wt 313 lb (142.0kg) SpO2 94% Performed in conjunction with observation. The patient is alert and oriented x3. The patient is in no acute distress. Station and Gait: Normal stance, normal gait. Lungs: normal respiratory rate and rhythm. Cardiovascular: regular rate. Neck: Supple. The range of motion is intact. Back: Range of motion of the trunk was generally intact. Spine: Tenderness in the lumbar facets bilaterally at L2-4, Positive facet loading Extremities: no reported edema or erythema. Motor: Exhibits full strength in all four extremities. ASSESSMENT: Patient reports low thoracic to lower back pain. She reports intermittent pain down the right LE both anterior and lateral to the foot. She had a T11-12 TESI on 04-09-18 and reports less than 50% improvement She had recent thoracic and lumbar MRIs to discuss the results for further recommendations. Discuss the importance of daily stretching and exercising and walking. She reports that her and her are thinking about joining the [employer] program. She takes tizanidine at bedtime. She is prescibed gabapentin 300 mg BID and relafen 500 mg BID by her PCP Encounter Diagnosis ICD-10-CM 1. Thoracic radiculitis M54.14 2. Thoracic disc disease M51.9 3. Radiculopathy of lumbar region M54.16 4. DDD (degenerative disc disease), lumbar M51.36 5. Lumbar radiculopathy M54.16 6. Spinal stenosis of thoracic region M48.04 7. Chronic pain syndrome G89.4 PDMP website checked and validated. All prescriptions have been APPROPRIATELY filled. No suspicious activity was identified. 05/29/2018 by Michelle Cross MA Narcotic Agreement reviewed and signed?: N/A on May 29, 2018 The pain panel was N/A PLAN: Prior available imaging studies were reviewed. Findings were discussed. Injection history was reviewed. Medication use and compliance were reviewed. 1. Continue medication management through the patient's current prescribing physician. Relafen and gabapentin 2. Reviewed thoracic and lumbar MRI 3. No refills needed today for tizanidine 4. Interventional procedure options discussed. Recommend bilateral L2,3,4 Facet injection. Consider left L2-3 vs L3-4 TFSI if leg pain is persistent, defer at this time. 5. Encouraged regular home exercise program. Recommend [employer] program 6) F/U in 6 weeks The treatment plan was discussed with the patient during the office visit and they verbalized an understanding of it. Isabella Jones APRN.BREAD DUMPER Attending Note I have personally performed a face to face assessment of the patient and have reviewed the PA/RABBLER note. My cardenas findings include: History is reviewed and is as above. Exam is consistent with above. Assessment/Plan are as outlined and with all questions reviewed and discussed. Other additions or changes: None David Linton MD cc: Dr. David Chambers MD cc: SELF Phone: N/A Fax: Results of consultation to be transmitted via electronic medical record for those providers who practice within [facility] or with access to [employer] via MD Connect, or via letter. Normal [facility] ALLIED HEALTHon 05-21-2018 ALLIED HEALTH HNO ID: [id number] Author: Elvia ([employer]) Dawn Morris Service: Radiology Author Type: Clay Dry Press Operator Type: Allied Health Filed: 05/21/2018 9:19 AM Note Text: Radiology Service Progress Note PATIENT NAME: Iris Blum DATE OF SERVICE: May 21, 2018 TIME: 9:18 AM PATIENT IDENTITY VERIFICATION COMPLETED USING TWO (2) METHODS: Patient confirmed name verbally and ID band matches. and Patient confirmed name verbally. PATIENT GENDER DATA: Female. status: : No status: NO. PATIENT RELEVANT IMPLANT DATA REVIEWED: Yes RADIOLOGY DEPARTMENT: MR; Exam(s) Completed: Spine: Thoracic spine and Lumbar spine PERIPHERAL IV DATA: Not applicable SIGNED BY: ALBER CASSIDY Tech May 21, 2018 9:18 AM [facility] MRI LUMBAR SPINE WO IVCONon 05-21-2018 MRI LUMBAR SPINE WO IVCON * * *Final Report* * * DATE OF EXAM: May 21 2018 9:47AM [facility] 0303 - MRI LUMBAR SPINE WO IVCON / PROCEDURE REASON: multiple diagnoses * * * * Physician Interpretation * * * * EXAMINATION: MRI LUMBAR SPINE WO IVCON CLINICAL HISTORY: Low back pain right side is worse. TECHNIQUE: Routine lumbosacral spine MR protocol without gadolinium. MQ: [id number] COMPARISON: None. RESULT: Counting reference: Lumbosacral junction. For the purposes of this report, L4-5 is considered the level of the iliac crest and assume there are 5 lumbar-type vertebrae. Anatomic variant: None. Alignment: Alignment is anatomic. Bone marrow signal/fracture: No evidence of pathologic marrow infiltration. No evidence of prior fracture. Conus: The conus is within normal limits of signal intensity and morphology. Paraspinal soft tissues: Paraspinal soft tissues are within normal limits. Lower thoracic spine: Visualized lower thoracic canal and foramina are patent. T12-L1: Mild narrowing the spinal canal due to small left-sided disc protrusion (series 1 image 13) foramina are patent. L1-L2: Mild narrowing the spinal canal due to facet hypertrophy and small right-sided cyst. Intervertebral disc is normal. Presence of small cyst at the right neural foramen (series 1 image 8 and series 4 image 6). It is felt to represent a small synovial cyst associated with the facet joint or perhaps a small disc herniation since it does not appear to be correctly connected to the exiting nerve root. Left neural foramen is patent. Mild right neural foraminal stenosis. L2-L3: Mild narrowing the spinal canal due to hypertrophic changes in the left facet joint and bulge. Right neural foramen is patent. Mild-moderate left neural foraminal stenosis. L3-L4: Mild-moderate narrowing the spinal canal due to broad-based disc protrusion and facet hypertrophy. Moderate bilateral neural foraminal stenosis. L4-L5: Mild/moderate narrowing the spinal canal due to endplate hypertrophy and facet hypertrophy. Bilateral moderate neural foraminal stenosis. L5-S1: Canal is patent. Bilateral mild-moderate neural foraminal stenosis due to loss of disc height and facet hypertrophy. Sacrum and iliac wings: The visualized sacrum and iliac wings are within normal limits. IMPRESSION: Multilevel degenerative disc and facet disease as detailed above. Canal stenosis is worst at L4-L5 and L3-L4 where it is mild-moderate. Multilevel moderate neural foraminal stenoses as detailed above. Incidental note of a small disc herniation or synovial cyst encroaching along the inferior aspect of the right L1-L2 neural foramen. Anatomic Thoracic/Lumbar Variant: None. L4-5 is considered the level of the iliac crest and assume there are 5 lumbar-type vertebrae. Sorter/Assay Tech: PSCB Transcribe Date/Time: May 21 2018 10:41A Dictated by : LILY DAMON MD This examination was interpreted and the report reviewed and electronically signed by: LILY DAMON MD on May 21 2018 10:48AM EST [id number] [facility] MRI THORACIC SPINE WO IVCONo n 05-21-2018 MRI THORACIC SPINE WO IVCON * * *Final Report* * * DATE OF EXAM: May 21 2018 9:47AM [facility] 0325 - MRI THORACIC SPINE WO IVCON / PROCEDURE REASON: multiple diagnoses * * * * Physician Interpretation * * * * EXAMINATION: MRI THORACIC SPINE WO SARINA CLINICAL HISTORY: Chronic back pain worse on the right side. TECHNIQUE: Routine thoracic spine MR protocol. MQ: [id number] COMPARISON: None. RESULT: Counting reference: Lumbosacral junction. For the purposes of this report, anatomic variants: None. L4-5 is considered the level of the iliac crest and assume there are 5 lumbar-type vertebrae. Alignment: Alignment is anatomic. Moderate loss of disc height at T10-T11 reflecting degeneration. There are type II endplate changes along the anterior aspects of T10-T11. Cord: The visualized cord is within normal limits of signal intensity and morphology. Bone marrow signal/fracture: No evidence of pathologic marrow infiltration. No evidence of prior fracture. Thoracic paraspinal soft tissues: The paraspinal soft tissues are within normal limits. Canal and foramina: Small central disc protrusion at T4-T5 (series 5 image 9), small left-sided disc protrusion at T5-T6 (series 8 image 25), small left paracentral protrusion at T5-T6 (series 5 image 10) and small central protrusion at T7-T8 (series 5 image 9). There are disc bulges at T11-T12 The thoracic canal and foramina are otherwise patent. IMPRESSION: Mild degenerative disc disease detailed above with disc protrusions as described. Anatomic Thoracic/Lumbar Variant: None. L4-5 is considered the level of the iliac crest and assume there are 5 lumbar-type vertebrae. Sorter/Assay Tech: PSCB Transcribe Date/Time: May 21 2018 10:37A Dictated by : ILLY DAMON MD This examination was interpreted and the report reviewed and electronically signed by: LILY DAMON MD on May 21 2018 10:48AM EST [id number] [facility] 05-06-2018 [facility] Office Visit (PNMDNA ) IRIS BLUM ([id number]) 1950 F NFR Date Time Provider Department 05/06/18 10:00 AM ISABELLA JONES (GARY) PNMDNA During your visit today, we recorded the following information about you: Pulse Weight Height 75/minute 141.5 kg 1.638 m Nandini Conn Dc 05/06/2018 9:44 AM Signed Patient presents with: Follow Up Isabella Jones APRN.CNP 05/06/2018 11:29 AM Signed SUBJECTIVE: Iris Blum presents to [facility] for a followup appointment for right low back pain. Since the last visit, Iris Blum states the pain has been the same, worse at times. Current pain intensity is 7 on a scale of 0-10. Pain located in Back area and radiates down the posterior leg. Pain described as shooting The patient Denies weakness, numbness, tingling, morning stiffness, leg pain and leg weakness. Symptoms interfere with physical activity, walking, sleeping, sitting, bathing, driving, cooking, household cleaning, reaching for shelves, lifting and social activities. Pain is exacerbated by getting up from sitting and walking. Pain is mitigated by medications. The patient notes no improvement from the previous procedure. The medications are partially effective. The patient states the last dose of . OTC Tylenol was taken at Bedtime last night. REVIEW OF SYSTEMS: Constitutional: (-) Fever (-) Night Sweats (+) Weight Gain (-) Weight Loss (+) Fatigue Cardiovascular: (-) Chest Pain (-) Palpitations (-) Lightheadedness (+) Swelling of Ankles (-) Hx Heart Surgery Respiratory: (+) Shortness of Breath (-) Cough (-) Wheezing (+) Snoring Gastrointestinal: (+) Incontinence (-) Abdominal Pain (+) Diarrhea (-) Constipation (-) Nausea/Vomiting (-) Heart Burn Endocrine: (+) Thyroid Disorder (-) Diabetes Hematologic: (-) Prolonged Bleeding (-) Easy Bruising Genitourinary: (+) Incontinence (-) Frequency (+) Urinary Urgency Skin: (-) Rashes (-) Itching (-) Other Lesions Neurologic: (+) Headache (-) Double Vision (-) Confusion (-) Paralysis Psychiatric: (+) Depression (-) Anxiety (-) Delusions (-) Hallucinations (-) Personal History of Alcohol or Substance Abuse (+) Family History of Alcohol or Substance Abuse OBJECTIVE: Pulse 75 Ht 5' 4.5 (1.64m) Wt 312 lb (141.5kg) SpO2 96% BMI 52.75 kg/(m2). PHYSICAL EXAMINATION: General appearance: Well appearing, in no acute distress, alert Skin: Skin color, texture, turgor normal, no rashes or lesions Neck: No pain to palpation over the cervical paraspinous muscles. No pain with neck flexion, extension, or lateral flexion Cardiovascular: Regular rate Lungs: Normal respiratory rate and rhythm Abdomen: Abdomen soft and non-tender. Back: Intact range of motion with pain reproduction. Spine: Reports Tenderness on palpation: Thoracic and Lumbar/Pelvic, right Extremities: No deformities, edema, or skin discoloration. Good capillary refill. Musculoskeletal: Joint pain left knee Neuro: No loss of sensation is noted. Station and Gait: antalgic gait Motor: Exhibits full strength in all four extremities. Trigger points: paravertebral thoracic muscles. ASSESSMENT: Assessment : Patient reports lower back pain that will radiate down the right lower extremity posterior to the foot She does have neuropathy and experiences numbness, tingling and burning Patient reports thoracic pain with a myofascial component that radiates into the right flank She reports she does not do any stretching or exercises and her are thinking about joining [email or web address]. Patient reports tizanidine has been helpful in reducing the muscle pain and cramping She had a T11-T12 epidural on and reports minimal improvements from this injection Encounter Diagnosis ICD-10-CM 1. Thoracic radiculitis M54.14 MRI THORACIC SPINE WO IVCON 2. Thoracic disc disease M51.9 MRI THORACIC SPINE WO IVCON 3. Radiculopathy of lumbar region M54.16 MRI LUMBAR SPINE WO IVCON 4. DDD (degenerative disc disease), lumbar M51.36 MRI LUMBAR SPINE WO IVCON 5. Lumbar radiculopathy M54.16 MRI LUMBAR SPINE WO IVCON 6. Spinal stenosis of thoracic region M48.04 MRI THORACIC SPINE WO IVCON 7. Spinal stenosis of lumbar region, unspecified whether neurogenic claudication present M48.061 MRI LUMBAR SPINE WO [facility] website checked and validated. All prescriptions have been APPROPRIATELY filled. No suspicious activity was identified. 05/06/2018 by Nandini Conn Ma Narcotic Agreement reviewed and signed?: N/A on May 06, 2018 The pain panel was N/A PLAN: Injection history was reviewed. Medication use and compliance were reviewed. 1. Ordered thoracic and lumbar MRIs for worsening and persistent pain 2. Signed Prescriptions Disp Refills tiZANidine (ZANAFLEX) 4 mg tablet 60 tablet 0 Sig: Take 1 tablet by mouth twice daily as needed. RACHAEL: No 3. Interventional procedure options discussed. We'll have Dr. Linton review the MRIs once completed for further recommendations 4. Encouraged regular home exercise program. Handout given for thoracic and lumbar exercises and stretches 5) will call with MRI results This note was partially generated using [employer] voice recognition system. The above plan and management options were discussed at length with patient. Patient is in agreement with the above and verbalized understanding. Isabella Jones APRN, BREAD DUMPER May 06, 2018 Referring Provider: SELF [200] Allergies As of Date: 05/06/2018 Noted Allergy Reaction ADHESIVE TAPE (ROSINS) 09/10/2006 CARVEDILOL 07/01/2015 3 - Cough CELEBREX (CELECOXIB) 04/26/2012 8 - GI Upset CODEINE 11/10/2004 4 - Hives DEMEROL (MEPERIDINE HCL) 11/10/2004 4 - Hives LEVAQUIN (LEVOFLOXACIN) 11/10/2004 4 - Hives Comments: States has taken since without reaction MELOXICAM 09/24/2009 8 - GI Upset METHOTREXATE 12/22/2014 2 - Rash MONOPRIL (FOSINOPRIL) 11/10/2004 3 - Cough NEURONTIN (GABAPENTIN) 11/10/2004 Comments: headache PERCOCET (OXYCODONE-ACETAMINOPHEN) 2 - Rash ULTRAM (TRAMADOL HCL) 11/10/2004 4 - Hives VERAPAMIL 11/10/2004 VICODIN (HYDROCODONE-ACETAMINOPHE*1 02/21/2014 2 - Rash VOLTAREN (DICLOFENAC SODIUM) 11/10/2004 8 - GI Upset Date Reviewed: 05/06/2018 Reviewed by: Nandini Fitchett Ma - Fully Assessed Reason for Visit: Follow Up [171] Primary Visit Diagnosis:Thoracic radiculitis [M54.14] Other Visit Diagnoses:Thoracic disc disease [M51.9] Radiculopathy of lumbar region [M54.16] DDD (degenerative disc disease), lumbar [M51.36] Lumbar radiculopathy [M54.16] Spinal stenosis of thoracic region [M48.04] Spinal stenosis of lumbar region, unspecified whether neurogenic claudication present [M48.061] Order(s):MRI THORACIC SPINE WO IVCON [[id number]] Order #: [id number] FUTURE MRI LUMBAR SPINE WO IVCON [[id number]] Order #: [id number] FUTURE tiZANidine (ZANAFLEX) 4 mg tabletTake 1 tablet by mouth twice daily as needed.Disp: 60 tabletRfl: 0 Prescriptions as of 05/06/2018 Sig: TIZANIDINE 4 MG TABLET Take 1 tablet by mouth twice * GABAPENTIN 300 MG CAPSULE Take 300 mg by mouth twice da* MONTELUKAST 10 MG TABLET Take 1 tablet by mouth daily * ALBUTEROL SULFATE HFA 90 MCG/* Inhale 2 Puffs as instructed * PANTOPRAZOLE 40 MG TABLET,DEL* TAKE 1 TABLET DAILY ON AN EM* FLUTICASONE 110 MCG/ACTUATION* Inhale 1 Puff as instructed t* BIPAP LEVOTHYROXINE 175 MCG TABLET Take 1 tablet by mouth once d* LEVETIRACETAM 1,000 MG TABLET Take 1 tablet by mouth once d* TRIAMTERENE 37.5 MG-HYDROCHLO* Take 1 capsule by mouth once * NABUMETONE 500 MG TABLET TAKE 2 TABLETS ONE TIME DAILY* DIAZEPAM 5 MG TABLET Take 1 tablet by mouth every * ZOLPIDEM 5 MG TABLET Take 1 tablet by mouth at bed* PREDNISONE 10 MG TABLET Take 1 tablet by mouth as nee* FLUTICASONE 50 MCG/ACTUATION * Use 1-2 Sprays in each nostri* METOPROLOL TARTRATE 50 MG TAB* Take 1 tablet by mouth twice * LOPERAMIDE 2 MG CAPSULE Take 1 capsule by mouth four * CHOLECALCIFEROL (VITAMIN D3) * Take 1 tablet by mouth once d* CYANOCOBALAMIN (VIT B-12) 1,0* Dissolve 1 tablet under the t* CETIRIZINE 10 MG TABLET Take 10 mg by mouth as needed. ADALIMUMAB 40 MG/0.8 ML SUBCU* Inject 40 mg subcutaneously o* PEDIATRIC MULTIVITAMIN-IRON C* TAKE ONE(1) TABLET DAILY WITH* Problem List As Of Date 05/06/2018 Noted Resolved Acquired hypothyroidism [E03.9] More... NEUROPATHY IN OTHER DIS [G63] MALIG JYOTI CORPUS UTERI [C54.9] More... ATRIAL PREMATURE BEATS [I49.1] Essential hypertension [I10] More... Adjustment disorder with depressed mood [F43.21]INVALID FOR* More... CONGENITAL PES PLANUS [Q66.50] INVALID FOR* Hereditary and idiopathic peripheral neuropathy*INVALID FOR* More... DEPRESSIVE DISORDER NEC [F32.9] Anemia [D64.9] INVALID FOR* Hyperlipidemia [E78.5] INVALID FOR* Rheumatoid arthritis (HCC) [M06.9] INVALID FOR* More... Anxiety [F41.9] INVALID FOR* Family history of colon cancer [Z80.0] INVALID FOR* More... History of bariatric surgery [Z98.84] INVALID FOR* More... Benign neoplasm of colon [D12.6] INVALID FOR* Family history of malignant neoplasm of gastroi*INVALID FOR* Acute gastritis without mention of hemorrhage [*INVALID FOR*08/24/2015 Osteoarthritis [M19.90] INVALID FOR* History of uterine cancer [Z85.42] INVALID FOR* Thoracic radiculitis [M54.14] INVALID FOR* Disc displacement, thoracic [M51.24] INVALID FOR* Lumbar radiculopathy [M54.16] INVALID FOR* More... DDD (degenerative disc disease), lumbar [M51.36]INVALID FOR* Carpal tunnel syndrome, left [G56.02] INVALID FOR* Ganglion cyst [M67.40] INVALID FOR* Thoracic radiculopathy [M54.14] INVALID FOR* Thoracic disc disease [M51.9] INVALID FOR* Chronic pain syndrome [G89.4] INVALID FOR* PUD (peptic ulcer disease) [K27.9] INVALID FOR* More... Obesity, Class III, BMI 40-49.9 (morbid obesity*INVALID FOR* Radiculopathy of lumbar region [M54.16] INVALID FOR* More... Visit Notes: >> Nandini Conn Ma SunMay 06, 2018 9:33 AM Status: Signed Patient presents with: Follow Up Prescriptions ordered this encounter Disp Refills Start End TIZANIDINE 4 MG TABLET 60 t* 0 05/06/2018 06/05/2018 Route: ORAL Sig: Take 1 tablet by mouth twice daily as needed. Medications Discontinued During This Encounter tiZANidine (ZANAFLEX) 4 mg tablet 60 t* 0 04/12/2018 05/06/2018 Route: ORAL Sig: Take 1 tablet by mouth twice daily as needed. Disc: Reason for discontinue is not on file. Encounter Status:Closed by ISABELLA JONES on 05/06/18 Normal [facility] PROGRESSon 05-06-2018 PROGRESS HNO ID: [id number] Author: Isabella Narayan ([facility]) Zahida Service: ? Author Type: Nurse Practitioner Type: Progress Notes Filed: 05/06/2018 11:29 AM Note Text: SUBJECTIVE: Iris Blum presents to [facility] Management Department for a followup appointment for right low back pain. Since the last visit, Iris Blum states the pain has been the same, worse at times. Current pain intensity is 7 on a scale of 0-10. Pain located in Back area and radiates down the posterior leg. Pain described as shooting The patient Denies weakness, numbness, tingling, morning stiffness, leg pain and leg weakness. Symptoms interfere with physical activity, walking, sleeping, sitting, bathing, driving, cooking, household cleaning, reaching for shelves, lifting and social activities. Pain is exacerbated by getting up from sitting and walking. Pain is mitigated by medications. The patient notes no improvement from the previous procedure. The medications are partially effective. The patient states the last dose of . OTC Tylenol was taken at Bedtime last night. REVIEW OF SYSTEMS: Constitutional: (-) Fever (-) Night Sweats (+) Weight Gain (-) Weight Loss (+) Fatigue Cardiovascular: (-) Chest Pain (-) Palpitations (-) Lightheadedness (+) Swelling of Ankles (-) Hx Heart Surgery Respiratory: (+) Shortness of Breath (-) Cough (-) Wheezing (+) Snoring Gastrointestinal: (+) Incontinence (-) Abdominal Pain (+) Diarrhea (-) Constipation (-) Nausea/Vomiting (-) Heart Burn Endocrine: (+) Thyroid Disorder (-) Diabetes Hematologic: (-) Prolonged Bleeding (-) Easy Bruising Genitourinary: (+) Incontinence (-) Frequency (+) Urinary Urgency Skin: (-) Rashes (-) Itching (-) Other Lesions Neurologic: (+) Headache (-) Double Vision (-) Confusion (-) Paralysis Psychiatric: (+) Depression (-) Anxiety (-) Delusions (-) Hallucinations (-) Personal History of Alcohol or Substance Abuse (+) Family History of Alcohol or Substance Abuse OBJECTIVE: Pulse 75 Ht 5' 4.5 (1.64m) Wt 312 lb (141.5kg) SpO2 96% BMI 52.75 kg/(m2). PHYSICAL EXAMINATION: General appearance: Well appearing, in no acute distress, alert Skin: Skin color, texture, turgor normal, no rashes or lesions Neck: No pain to palpation over the cervical paraspinous muscles. No pain with neck flexion, extension, or lateral flexion Cardiovascular: Regular rate Lungs: Normal respiratory rate and rhythm Abdomen: Abdomen soft and non-tender. Back: Intact range of motion with pain reproduction. Spine: Reports Tenderness on palpation: Thoracic and Lumbar/Pelvic, right Extremities: No deformities, edema, or skin discoloration. Good capillary refill. Musculoskeletal: Joint pain left knee Neuro: No loss of sensation is noted. Station and Gait: antalgic gait Motor: Exhibits full strength in all four extremities. Trigger points: paravertebral thoracic muscles. ASSESSMENT: Assessment : Patient reports lower back pain that will radiate down the right lower extremity posterior to the foot She does have neuropathy and experiences numbness, tingling and burning Patient reports thoracic pain with a myofascial component that radiates into the right flank She reports she does not do any stretching or exercises and her are thinking about joining [employer]. Patient reports tizanidine has been helpful in reducing the muscle pain and cramping She had a T11-T12 epidural on and reports minimal improvements from this injection Encounter Diagnosis ICD-10-CM 1. Thoracic radiculitis M54.14 MRI THORACIC SPINE WO IVCON 2. Thoracic disc disease M51.9 MRI THORACIC SPINE WO IVCON 3. Radiculopathy of lumbar region M54.16 MRI LUMBAR SPINE WO IVCON 4. DDD (degenerative disc disease), lumbar M51.36 MRI LUMBAR SPINE WO IVCON 5. Lumbar radiculopathy M54.16 MRI LUMBAR SPINE WO IVCON 6. Spinal stenosis of thoracic region M48.04 MRI THORACIC SPINE WO IVCON 7. Spinal stenosis of lumbar region, unspecified whether neurogenic claudication present M48.061 MRI LUMBAR SPINE WO IVCON PDMP website checked and validated. All prescriptions have been APPROPRIATELY filled. No suspicious activity was identified. 05/06/2018 by Nandini Conn Ma Narcotic Agreement reviewed and signed?: N/A on May 06, 2018 The pain panel was N/A PLAN: Injection history was reviewed. Medication use and compliance were reviewed. 1. Ordered thoracic and lumbar MRIs for worsening and persistent pain 2. Signed Prescriptions Disp Refills tiZANidine (ZANAFLEX) 4 mg tablet 60 tablet 0 Sig: Take 1 tablet by mouth twice daily as needed. RACHAEL: No 3. Interventional procedure options discussed. We'll have Dr. Linton review the MRIs once completed for further recommendations 4. Encouraged regular home exercise program. Handout given for thoracic and lumbar exercises and stretches 5) will call with MRI results This note was partially generated using [employer] voice recognition system. The above plan and management options were discussed at length with patient. Patient is in agreement with the above and verbalized understanding. Isabella Jones APRN, GARY May 06, 2018 Normal [facility] HISTORY PHYSICALon 9 HISTORY PHYSICAL HNO ID: [id number] Author: David Linton Service: Pain Management Author Type: Physician Type: HANDP Filed: 04/09/2018 9:05 AM Note Text: HISTORY AND PHYSICAL EXAMINATION PATIENT NAME: Iris Blum DATE of SERVICE: 04/09/2018 Iris Blum is here for the pain mangement procedure. The patient presents with persistent pain complaints. Iris Blum denies any interval changes or new pain complaints or focal neurologic deficits. PAST MEDICAL HISTORY Diagnosis Date - Arrhythmia - Asthma - Benign neoplasm of colon - Complication of anesthesia n/v with general anesthetic - Depressive disorder, not elsewhere classified - Endometrial cancer (HCC) 1989 - Esophageal reflux - Fibromyalgia - Fracture of navicular bone of wrist, left, closed - Iron deficiency anemia secondary to blood loss (chronic) - Malignant neoplasm of corpus uteri, except isthmus (HCC) Uterine cancer - EMMETT treated with BiPAP [phone] - Other specified anemias - Polyneuropathy in other diseases classified elsewhere (HCC) - Rheumatoid arthritis (HCC) - Seasonal allergies - Snoring - Supraventricular premature beats - Unspecified essential hypertension - Unspecified hypothyroidism PAST SURGICAL HISTORY Procedure Laterality Date - BX OF BREAST; INCISIONAL x 2 Bx of breast, incisional [facility] - COLONOSCOP W/ OR W/O B[facility] SPEC 06/26/2011 Colonoscopy repeat 5 years - EGD W/O OR W/BRUSH/WASH 09/10/06 - GASTRIC BYPASS,OBESITY,SB RECONSTRUC 05/2000 - PAST SURGICAL HISTORY OF 2003 abdominal plasty, thigh plasty - PAST SURGICAL HISTORY OF 2004 brachial plasty - REMOVAL GALLBLADDER 07/24/1996 - REMOVAL OF TONSILS,<14 Y/O 1974 Tonsillectomy - TOTAL ABDOM HYSTERECTOMY 1989 Hysterectomy, NATALIO Social History Marital status: Spouse name: Years of education: Number of children: 0 Occupational History Occupation Employer Comment [employer]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 Social History Main Topics Smoking status: Never Smoker Smokeless tobacco: Never Used Comment: Father smoked in childhood home. Alcohol use: No Drug use: No Social History Narrative In current home 2 years. No basement. 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 2 cats in home for about a year. No positive PPD. FAMILY HISTORY Problem Relation Age of Onset - Cancer Father lung, - Hypertension Mother - other (tremor) Mother - Stroke Maternal Grandmother - Hypertension Maternal Grandmother - Stroke Maternal Uncle - Diabetes Paternal Grandmother - Diabetes Maternal Grandfather - Diabetes Paternal Uncle - Diabetes Paternal Uncle - Diabetes Paternal Aunt - Diabetes Paternal Aunt - Cancer Maternal Uncle 3 uncles with Leukemia - Cancer Brother colon ALLERGIES Allergen Reactions - Adhesive Tape (Afshan* - Carvedilol Cough - Celebrex [Celecoxib] GI Upset - Codeine Hives - Demerol [Meperidine* Hives - Levaquin [Levofloxa* Hives States has taken since without reaction - Meloxicam GI Upset - Methotrexate Rash - Monopril [Fosinopri* Cough - Neurontin [Gabapent* headache - Percocet [Oxycodone* Rash - Ultram [Tramadol Hc* Hives - Verapamil - Vicodin [Hydrocodon* Rash - Voltaren [Diclofena* GI Upset Current Facility-Administered Medications: NaCl 0.9% iv infusion 30 mL/hr INTRAVENOUS CONTINUOUS Physical Exam: Performed in conjunction with observation. The patient is alert and oriented x3. The patient is in no acute distress. Neck: Supple. The range of motion is intact. Lungs: clear CVR: RRR. Extremities: no reported edema or erythema. Examination indicates no changes Impression: Thoracic DDD Plan: The informed consent has been obtained. The plan is to proceed with the procedure as planned. SIGNATURE: David Linton MD DATE: April 09, 2018 TIME: 9:05 AM [facility] NURSING PROGon 04-09-2018 NURSING PROG HNO ID: [id number] Author: Arely Robledo) MARKIE Marcano Service: Nursing Author Type: Registered Nurse Type: Nursing Progress Note Filed: 04/09/2018 9:54 AM Note Text: Nursing Progress Note Patient Name: Iris Blum Patient Location: PA Surgery/PA Surgery 0930 Pt received in PACU on cart form Endo post injection. VSS. Snack given. This note was completed by: Arely Marcano RN 0985 iV removed. Site without redness or swelling. Homegoing instructions given. Pt verbalizes understanding. Pt able to stand with steady gait. [facility] NURSING PROG HNO ID: [id number] Author: Vanesa StewardRn) MARKIE Stevens Service: (none) Author Type: Registered Nurse Type: Nursing Progress Note Filed: 04/09/2018 8:30 AM Note Text: @ 0747 Pt received to ASCU, ambulatory with a wheeled walker - steady. Pt alert AND oriented - pleasant AND cooperative with care. @ 0830 Ready for procedure - sister @ bedside. [facility] OPERATIVE NOon 04-09-2018 OPERATIVE NO HNO ID: [id number] Author: David Linton Service: Pain Management Author Type: Physician Type: Operative Report Filed: 04/09/2018 9:20 AM Note Text: PATIENT NAME: Iris Blum SERVICE DATE: 04/09/2018 SERVICE TIME: 9:19 AM PROCEDURE NOTE PREOPERATIVE DIAGNOSIS(ES) Thoracic DDD Thoracic pain POSTOPERATIVE DIAGNOSIS(ES): Same OPERATION: T11-12 intralaminar thoracic epidural steroid injection under fluoroscopy. ANESTHESIA: versed 3mg IV INDICATIONS: The patient presents for thoracic intralamnar epidural steroid injection. Since the last visit, the patient denies any new pain complaints and denies any focal neurological deficits. The plan is to proceed with thoracic intralaminar epidural steroid injection as scheduled. The risks and benefits of the procedure were discussed. Specifically, the risks of bleeding, infection, inadvertent dural puncture, spinal heaches, vasovagal reaction, epidural hematoma, partial or permanent nerve injury were covered. The potential side effects of medications used in procedures including increase in lumbar pain, headaches, facial redness or warmth (flushing), anxiety or mood swings, sleeplessness, fever, high blood sugar, brief reduction in immunity were discussed. The patient expressed understanding of potential risks and wishes to proceed with the procedure. OPERATIVE PROCEDURE: The patient was brought to the operating room. The patient was placed in the prone position with routine monitors placed. The lower back was prepped in sterile fashion. Upon AP projection under fluoroscopy, T11-12 level was identified. Entry point was marked and anesthetized with 0.5% Lidocaine. This was followed by insertion of an 18-gauge epidural Tuohy needle, which was inserted and advanced using a loss of resistance technique. Once the epidural space was encountered, aspiration was performed which was negative for blood or CSF. This was followed by injection of Omnipaque 300, which revealed a spread along the posterior epidural space. There was no evidence of intravascular or intrathecal flow. This was then followed by a total injection of 4 mL of 0.5% Xylocaine with 40 mg of Depomedrol. The patient tolerated the procedure well. The needle was removed intact. Dry dressing was placed over the injection site. The patient was taken to the recovery room in stable condition. EBL: nil Start time: 9:13 AM End time: 9:18 AM I was present the entire time and personally performed the procedure. SIGNATURE: David Linton MD DATE: April 09, 2018 TIME: 9:19 AM [facility] PT EDon 04-09-2018 PT ED HNO ID: [id number] Author: Arely Robledo) MARKIE Marcano Service: Nursing Author Type: Registered Nurse Type: Patient Education Filed: 04/09/2018 10:14 AM Note Text: POST OP LEARNING RESPONSE INSTRUCTION PROVIDED TO: Patient METHOD OF INSTRUCTION: Individual instruction Written instruction - handouts Verbal instruction PATIENT / FAMILY RESPONSE: Information received as demonstrated by interest and questions FOLLOW-UP PLAN: Patient instructed to call with any further issues SUPPLEMENTAL MATERIAL: Post op discharge instructions REFERRAL (RECOMMENDATION): None Electronically Signed By: Arely aMrcano RN In Department: [facility] SURGERY [facility] PT ED HNO ID: [id number] Author: Vanesa Stevens RN Service: (none) Author Type: Registered Nurse Type: Patient Education Filed: 04/09/2018 8:31 AM Note Text: PROCEDURE/SURGERY: thoracic BRIDGET READINESS TO LEARN COGNITIVE ABILITY: Alert and oriented MOTIVATION TO LEARN: Eager FAMILY SUPPORT: High - Very involved in pt care PATIENT LEARNS BEST BY: Verbal Instruction FACTORS AFFECTING LEARNING: None PHYSICAL LIMITATIONS AFFECTING LEARNING: None Electronically Signed By: Vanesa Stevens RN In Department: [facility] SURGERY [facility] XR FLUOROSCOPYon 04-09-2018 XR FLUOROSCOPY * * *Final Report* * * DATE OF EXAM: Apr 09 2018 9:21AM [facility] [id number] - XR FLUOROSCOPY / PROCEDURE REASON: PAIN - T11-T12 INTRALAMINAR * * * * Physician Interpretation * * * * INDICATION: Pain management TECHNIQUE: Single submitted fluoroscopic spot image Fluoroscopic Radiation Summary: Plane A, Air Kerma: 3.5 mGy Plane B, Air Kerma: 0.0 mGy Dose Area Product (DAP): 402.2 mGy*cmS2 Fluoro time: 0:06 min:sec FINDINGS/ IMPRESSION: A single submitted fluoroscopic spot image demonstrates a needle with associated contrast overlying the midline lower thoracic spine. Refer to the procedure note for details regarding this procedure. Sorter/Assay Tech: PSCJeanette Transcribe Date/Time: Apr 09 2018 10:10A Dictated by : VANITA MITCHELL MD This examination was interpreted and the report reviewed and electronically signed by: VANITA MITCHELL MD on Apr 09 2018 10:57AM EST [id number] [facility] CNCOon 04-04-2018 CNCO Letter Text April 04, 2018 Iris Robert Ariannemartinez [address] [facility] [address] Dear Ms. Blum, Thank you for choosing [facility] for your medical care. To help reduce healthcare costs, it is important for us to collect co-payments at the time of service. We are sorry we missed you when you were here on 04/09/2018. According to your insurance company, you are responsible for a co-payment of $375.00. Please mail your check or money order, payable to [facility] along with the stub below, in the enclosed envelope. If you would like to pay with your credit card, please call [phone] option 1 for assistance or pay online at [email or web address]. Again, thank you for choosing [facility]. Sincerely, Cathy Quach Patient Drapery Sewer Hand Please detach and return in the enclosed envelope. Patient Name: Iris Blum EMPI Number: [id number] Date of Service: 04/09/2018 Co-Pay Due: 375.00 Amount Enclosed: $ .__ Please make checks payable to [facility]. [facility] HOSPon 03-26-2018 HOSP Patient:Waqas Blum MRN: Height:5' 4(1.626 m) Weight:307 lb (139.254 kg) Outpatient Medications as of 04/09/18: gabapentin (NEURONTIN) 300 mg capsule montelukast (SINGULAIR) 10 mg tablet albuterol HFA (VENTOLIN HFA) 90 mcg/actuation inhaler pantoprazole DR (PROTONIX) 40 mg tablet fluticasone (FLOVENT) 110 mcg/actuation inhaler BIPAP levothyroxine (SYNTHROID) 175 mcg tablet levETIRAcetam (KEPPRA) 1,000 mg tablet triamterene-hydrochlorothia zide 37.5-25 mg per capsule nabumetone (RELAFEN) 500 mg tablet diazePAM (VALIUM) 5 mg tablet zolpidem (AMBIEN) 5 mg tablet predniSONE (DELTASONE) 10 mg tablet fluticasone (FLONASE) 50 mcg/actuation nasal spray metoprolol tartrate, short acting, (LOPRESSOR) 50 mg tablet loperamide (IMODIUM) 2 mg cap(s) Cholecalciferol, Vitamin D3, 2,000 unit cap Cyanocobalamin (VITAMIN B-12) 1,000 mcg subl cetirizine (ZYRTEC) 10 mg tablet adalimumab (HUMIRA) 40 mg/0.8 mL injection pediatric multivitamins with iron (FLINTSTONES PLUS IRON) ORAL chewable tablet Admission/Clinic Administered Medications as of 04/09/18: NaCl 0.9% iv infusion Problem List: Acquired hypothyroidism [E03.9] Polyneuropathy in other diseases classified elsewhere ([facility]) [G63] Malignant neoplasm of corpus uteri, except isthmus ([facility]) [C54.9] Supraventricular premature beats [I49.1] Essential hypertension [I10] Adjustment disorder with depressed mood [F43.21] 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] Depressive disorder, not elsewhere classified [F32.9] Anemia [D64.9] Hyperlipidemia [E78.5] Rheumatoid arthritis (HCC) [M06.9] Anxiety [F41.9] Family history of colon cancer [Z80.0] History of bariatric surgery [Z98.84] Benign neoplasm of colon [D12.6] Family history of malignant neoplasm of gastrointestinal tract [Z80.0] Osteoarthritis [M19.90] History of uterine cancer [Z85.42] Thoracic radiculitis [M54.14] Disc displacement, thoracic [M51.24] Lumbar radiculopathy [M54.16] DDD (degenerative disc disease), lumbar [M51.36] Carpal tunnel syndrome, left [G56.02] Ganglion cyst [M67.40] Thoracic radiculopathy [M54.14] Thoracic disc disease [M51.9] Chronic pain syndrome [G89.4] PUD (peptic ulcer disease) [K27.9] Obesity, Class III, BMI 40-49.9 (morbid obesity) ([facility]) [E66.01] Radiculopathy of lumbar region [M54.16] Allergies: Adhesive Tape (Rosins) Carvedilol Celebrex [Celecoxib] Codeine Demerol [Meperidine Hcl] Levaquin [Levofloxacin] Meloxicam Methotrexate Monopril [Fosinopril] Neurontin [Gabapentin] Percocet [Oxycodone-Acetaminophen] Ultram [Tramadol Hcl] Verapamil Vicodin [Hydrocodone-Acetaminophen] Voltaren [Diclofenac Sodium] Date Verified: 04/09/18 Lab Values No results within the last 30 days for the following basenames: K,HCT Progress Notes ([facility]): Kimberlee Hoffman RN 03/25/2018 2:23 PM Signed Patient calls with c/o pain: Location: right mid back around to right side ribs Intensity: 10/10 Character: very sharp Frequency: constant Duration: couple weeks Increased pain intensity past 3 days Aggravating: everything standing, taking a deep breath, stairs Alleviating Factors: rest. Patient has tried heat and ice without relief. She has increased gabapentin 300 mg to BID Patient says the pain can stop her in Her tracks 10/23/17 Procedure: LUMBAR EPIDURAL BLOCK W/INJECTION NON NEUROLYTIC W/IMAGE GUIDANCE. Per patient the pain relieft lasted until about 2 weeks ago. Patient asks if she can be scheduled for another injection Please advise. Patient is requesting a return call from our office. Kimberlee Chavez 03/25/2018 2:41 PM Signed Spoke with patient her pain is in the mid spine radiating to the front by her ribs. Stated it was actually the thoracic injection from 09/11/17 that has been helping this pain until a couple weeks ago. She has had >80% relief from this injection and would like to have another one. Instructed patient she should follow up after next injection as she is coming up on 1 year on 09/07/17 Isabella Jones APRN.CNP 03/25/2018 2:48 PM Signed Ordered T11-12?intralaminar thoracic epidural steroid injection under fluoroscopy. Patient should schedule a follow-up 6-8 weeks after the injection ? Binta Tripathi MA 03/26/2018 10:20 AM Signed Patient is scheduled for 04/09/2018. I mailed the patient the procedure information to her home address. Binta Bhumi [facility] Vital Signs Date Time Vital Sign Value Performing Clinician Faci lity 11-10-2024 11:040400 Body height 160.[address] David Chambers MD Work Phone: 5(285)563-919849 [place] [address] 11-10-2024 11:040400 Body mass index (BMI) [Ratio] 54.3 kg/m2 Dr. David Chambers MD Work Phone: 8(693)054-902874 [place] [address] 11-10-2024 11:040400 Body weight 139.[address] David Chambers MD Work Phone: 8(309)515-295483 [address] 06-04-2024 09:19-0400 Body temperature 98.2 [degF] Dr. David Chambers MD Work Phone: 2(565)318-535949 [place] [address] 06-04-2024 09:19-0400 Diastolic blood pressure 39 mm[Hg] Dr. David Chambers MD Work Phone: 9(113)616-042849 [place] [address] 06-04-2024 09:19-0400 Heart rate 56 /min Dr. David Chambers MD Work Phone: 3(615)863-802749 [place] [address] 06-04-2024 09:19-0400 Respiratory rate 18 /min Dr. David Chambers MD Work Phone: 5(350)620-778749 [place] [address] 06-04-2024 09:19-0400 SaO2% (BldA) [Mass fraction] 97 % Dr. David Chambers MD Work Phone: 5(329)609-532549 [place] [address] 06-04-2024 09:19-0400 Systolic blood pressure 128 mm[Hg] Dr. David Chambers MD Work Phone: [facility] 06-04-2024 07:06-0400 Body height 160.[address] David Chambers MD Work Phone: [facility] 06-04-2024 07:06-0400 Body mass index (BMI) [Ratio] 55 kg/m2 Dr. David Chambers MD Work Phone: [facility] 06-04-2024 07:06-0400 Body weight [address] David Chambers MD Work Phone: [facility] 04-30-2024 11:00-0400 Body height 160.[address] David Chambers MD Work Phone: [facility] 04-30-2024 11:00-0400 Body mass index (BMI) [Ratio] 56.1 kg/m2 Dr. David Chambers MD Work Phone: [facility] 04-30-2024 11:00-0400 Body weight 143.[address] David Chambers MD Work Phone: [facility] 04-30-2024 11:00-0400 Diastolic blood pressure 73 mm[Hg] Dr. David Chambers MD Work Phone: 2(106)471-600949 [place] [address] 04-30-2024 11:00-0400 Heart rate 65 /min Dr. David Chambers MD Work Phone: [facility] 04-30-2024 11:00-0400 Respiratory rate 18 /min Dr. David Chambers MD Work Phone: [facility] 04-30-2024 11:00-0400 Systolic blood pressure 129 mm[Hg] Dr. David Chambers MD Work Phone: [facility] 02-02-2022 08:34-0500 Body height 160.02 cm [facility] 08-20-2021 11:44-0400 Body height 160.[address] David Chambers Work Phone: [facility] Work Phone: 08-20-2021 11:44-0400 Body mass index (BMI) [Ratio] 56.8 kg/m2 Dr. David Chambers Work Phone: [facility] Work Phone: 08-20-2021 11:44-0400 Body temperature 97.5 [degF] Dr. David Chambers Work Phone: [facility] Work Phone: 08-20-2021 11:44-0400 Body weight 145.[address] David Chambers Work Phone: [facility] Work Phone: 08-20-2021 11:44-0400 Diastolic blood pressure 78 mm[Hg] Dr. David Chambers Work Phone: [facility] Work Phone: 08-20-2021 11:44-0400 Heart rate 73 /min Dr. David Chambers Work Phone: [facility] Work Phone: 08-20-2021 11:44-0400 Respiratory rate 18 /min Dr. David Chambers Work Phone: [facility] Work Phone: 08-20-2021 11:44-0400 SaO2% (BldA) [Mass fraction] 99 % Dr. David Chambers Work Phone: [facility] Work Phone: 08-20-2021 11:44-0400 Systolic blood pressure 122 mm[Hg] Dr. David Chambers Work Phone: [facility] Work Phone: 07-04-2021 09:16-0400 Body mass index (BMI) [Ratio] 56.2 kg/m2 Dr. David Chambers Work Phone: [facility] Work Phone: 07-04-2021 09:16-0400 Body temperature 97.8 [degF] Dr. David Chambers Work Phone: [facility] Work Phone: 07-04-2021 09:16-0400 Body weight 143.[address] David Chambers Work Phone: [facility] Work Phone: 07-04-2021 09:16-0400 Diastolic blood pressure 91 mm[Hg] Dr. David Chambers Work Phone: [facility] Work Phone: 07-04-2021 09:16-0400 Heart rate 66 /min Dr. David Chambers Work Phone: [facility] Work Phone: 07-04-2021 09:16-0400 Respiratory rate 16 /min Dr. David Chambers Work Phone: [facility] Work Phone: 07-04-2021 09:16-0400 SaO2% (BldA) [Mass fraction] 97 % Dr. David Chambers Work Phone: [facility] Work Phone: 07-04-2021 09:16-0400 Systolic blood pressure 145 mm[Hg] Dr. David Chambers Work Phone: [facility] Work Phone: 07-04-2021 09:16-0400 Body height 160.[address] David Chambers Work Phone: [facility] Work Phone: 07-04-2021 09:16-0400 Body mass index (BMI) [Ratio] 56.2 kg/m2 Dr. David Chambers Work Phone: [facility] Work Phone: 07-04-2021 09:16-0400 Body temperature 97.8 [degF] Dr. David Chambers Work Phone: [facility] Work Phone: 07-04-2021 09:16-0400 Body weight 143.[address] David Chambers Work Phone: [facility] Work Phone: 07-04-2021 09:16-0400 Diastolic blood pressure 91 mm[Hg] Dr. David Chambers Work Phone: [facility] Work Phone: 07-04-2021 09:16-0400 Heart rate 66 /min Dr. David Chambers Work Phone: [facility] Work Phone: 07-04-2021 09:16-0400 Respiratory rate 16 /min Dr. David Chambers Work Phone: [facility] Work Phone: 07-04-2021 09:16-0400 SaO2% (BldA) [Mass fraction] 97 % Dr. David Chambers Work Phone: [facility] Work Phone: 07-04-2021 09:16-0400 Systolic blood pressure 145 mm[Hg] Dr. David Chambers Work Phone: [facility] Work Phone: 06-23-2021 13:58-0400 Body height 160.[address] David Chambers Work Phone: [facility] Work Phone: 06-23-2021 13:58-0400 Body weight 142.[address] David Chambers Work Phone: [facility] Work Phone: 06-23-2021 13:58-0400 Heart rate 82 /min Dr. David Chambers Work Phone: [facility] Work Phone: 06-23-2021 13:58-0400 SaO2% (BldA) [Mass fraction] 98 % Dr. David Chambers Work Phone: [facility] Work Phone: 06-06-2021 10:46-0400 Body mass index (BMI) [Ratio] 55.8 kg/m2 Dr. David Chambers Work Phone: [facility] Work Phone: 06-06-2021 10:46-0400 Body temperature 96.8 [degF] Dr. David Chambers Work Phone: [facility] Work Phone: 06-06-2021 10:46-0400 Body weight 143.[address] David Chambers Work Phone: [facility] Work Phone: 06-06-2021 10:46-0400 Diastolic blood pressure 85 mm[Hg] Dr. David Chambers Work Phone: [facility] Work Phone: 06-06-2021 10:46-0400 Heart rate 75 /min Dr. David Chambers Work Phone: [facility] Work Phone: 06-06-2021 10:46-0400 Respiratory rate 16 /min Dr. David Chambers Work Phone: [facility] Work Phone: 06-06-2021 10:46-0400 SaO2% (BldA) [Mass fraction] 97 % Dr. David Chambers Work Phone: [facility] Work Phone: 06-06-2021 10:46-0400 Systolic blood pressure 150 mm[Hg] Dr. David Chambers Work Phone: [facility] Work Phone: 06-06-2021 10:46-0400 Body mass index (BMI) [Ratio] 55.8 kg/m2 Dr. David Chambers Work Phone: [facility] Work Phone: 06-06-2021 10:46-0400 Body temperature 96.8 [degF] Dr. David Chambers Work Phone: [facility] Work Phone: 06-06-2021 10:46-0400 Body weight 143.[address] David Chambers Work Phone: [facility] Work Phone: 04-18-2022 10:46-0400 Diastolic blood pressure 85 mm[Hg] Dr. David Chambers Work Phone: [facility] Work Phone: 06-06-2021 10:46-0400 Heart rate 75 /min Dr. David Chambers Work Phone: [facility] Work Phone: 06-06-2021 10:46-0400 Respiratory rate 16 /min Dr. David Chambers Work Phone: [facility] Work Phone: 06-06-2021 10:46-0400 SaO2% (BldA) [Mass fraction] 97 % Dr. David Chambers Work Phone: [facility] Work Phone: 06-06-2021 10:46-0400 Systolic blood pressure 150 mm[Hg] Dr. David Chambers Work Phone: [facility] Work Phone: Encounters Encounter Date Encounter Type Care Provider Facility Start: 01-01-2025 ambulatory Lissette Pla[place]ow Facility: [facility] Start: 12-31-2024 Encounter for genera l adult medical examination without abnormal findings Lissette Griffin [facility] Start: 12-18-2024 End: 12-18-2024 ambulatory Lissette Griffin Facility:[facility] Start: 12-18-2024 End: 12-18-2024 ambulatory Lissette Griffin Facility:[facility] Start: 11-19-2024 Registered Recurring Lissette Griffin N P-C -[facility] Work Phone: Start: 11-10-2024 End: 11-10-[address] Armaan Guallpa MD -[facility] Work Phone: Start: 11-10-2024 End: 11-10-[address] David Chambers MD Work Phone: -[facility] Start: 11-07-2024 End: 11-18-[address] David Chambers MD Work Phone: -[facility] Start: 11-07-2024 End: 11-18-2024 Discharged Recurring Lissette Griffin CUSTOMER RELATIONS CONSULTANT-C -[facility]atory [facility] Start: 11-07-2024 Registered Recurring Lissette Rodriguez P-C -Laboratory [facility] Start: 10-22-2024 Non-patient / Non-visit Dr. Vince Carter MD -[facility] Start: 10-22-2024 End: 10-22-[address] David Chambers MD Work Phone: -[facility] Start: 10-22-2024 End: 10-22-[address] David Chambers MD -[facility] Work Phone: Start: 10-22-2024 Registered Recurring Lissette Rodriguez P-C -[facility]atory [facility] Start: 10-22-2024 End: 10-22-2024 ambulatory David Chambers Facility:[facility] Start: 10-09-2024 End: 10-09-[address] David Chambers MD Work Phone: -Laboratory [facility] Start: 10-09-2024 End: 10-09-2024 Discharged Recurring Lissette Griffin CUSTOMER RELATIONS CONSULTANT-C -Laboratory [facility] Work Phone: Start: 09-30-2024 Registered Recurring Lissette Rodriguez P-C -Laboratory [facility] Work Phone: Start: 09-17-2024 End: 09-18-[address] David Chambers MD Work Phone: -Laboratory [facility] Start: 09-17-2024 End: 09-18-2024 Discharged Recurring Lissette Griffin CUSTOMER RELATIONS CONSULTANT-C -Laboratory [facility] Work Phone: Start: 09-17-2024 End: 09-17-[address] David Chambers MD Work Phone: -[facility] Start: 09-17-2024 End: 09-17-[address] David Chambers MD -[facility] Work Phone: Start: 09-17-2024 End: 09-17-2024 ambulatory David Chambers Facility:[facility] Start: 08-19-2024 Non-patient / Non-visit Dr. Erika Lopez MD -[facility] Work Phone: Start: 08-06-2024 End: 08-06-[address] David Chambers MD Work Phone: -Laboratory [place] Start: 08-06-2024 End: 08-06-2024 Discharged Recurring Lissette Griffin CUSTOMER RELATIONS CONSULTANT-C -[facility] [place] Work Phone: Start: 07-10-2024 End: 07-10-2024 Discharged Recurring Lissette Griffin CUSTOMER RELATIONS CONSULTANT-C -Labor[facility] [place] Work Phone: Start: 07-10-2024 End: 07-10-[address] David Chambers MD Work Phone: [facility] Work Phone: Start: 06-12-2024 End: 06-18-2024 Discharged Recurring Lissette Griffin CUSTOMER RELATIONS CONSULTANT-C -Labor[facility] [place] Work Phone: Start: 06-12-2024 End: 06-18-2024 ambulatory Lissette Griffin Facility:[facility] Start: 06-04-2024 ambulatory David Chambers Facility:[facility] Start: 06-04-2024 Non-patient / Non-visit Guille Perez DO -[facility] Start: 06-04-2024 End: 06-04-2024 Admission to same day surgery center Guille Perez DO -Endoscopy Work Phone: Start: 06-04-2024 End: 06-04-[address] David Chambers MD Work Phone: [facility] Work Phone: Start: 05-22-2024 End: 05-22-[address] David Chambers MD Work Phone: [facility] Work Phone: Start: 05-22-2024 End: 05-22-[address] [facility] Start: 05-22-2024 End: 05-22-2024 ambulatory David Chambers Facility:[facility] Start: 05-15-2024 End: 05-15-[address] David Chambers MD Work Phone: [facility] Work Phone: Start: 05-15-2024 End: 05-15-2024 Discharged Recurring Lissette Griffin CUSTOMER RELATIONS CONSULTANT-C -Laboratory, [facility] Work Phone: Start: 04-30-2024 Registered Recurring Lissette Rodriguez P-C -Laboratory, [place] Work Phone: Start: 04-30-2024 End: 04-30-2024 Patient encounter procedure Matt Perez NP-C -[facility] Work Phone: Start: 04-30-2024 End: 04-30-2024 ambulatory Matt Perez Facility:[facility] Start: 04-23-2024 End: 04-23-[address] David Chambers MD Work Phone: [facility] Work Phone: Start: 04-23-2024 End: 04-23-[address] Dinah Fernandez MD -Laboratory, [place] Work Phone: Start: 04-23-2024 End: 04-23-2024 ambulatory Dinah Fernandez Facility:[facility] Start: 04-17-2024 End: 04-18-2024 ambulatory Lissette Griffin Facility:[facility] Start: 04-17-2024 End: 04-18-2024 Discharged Recurring Lissette Griffin CUSTOMER RELATIONS CONSULTANT-C -Laboratory, [facility] Work Phone: Start: 04-03-2024 End: 04-03-2024 Patient encounter procedure Divya NIEVES -[facility] Work Phone: Start: 04-03-2024 End: 04-03-2024 ambulatory Divya Mariano Facility:[facility] Start: 03-14-2024 End: 03-14-2024 Discharged Recurring Lissette Griffin CUSTOMER RELATIONS CONSULTANT-C -Laboratory, [facility] Work Phone: Start: 03-14-2024 End: 03-14-2024 ambulatory Lissette Griffin Facility:[facility] Start: 02-15-2024 End: 02-15-2024 ambulatory Lissette Barrera Facility:[facility] Start: 02-15-2024 End: 02-15-2024 Discharged Recurring Lissette Griffin [facility] RELATIONS [facility] Start: 01-23-2024 End: 01-23-[address] David Chambers MD -Laboratory, [facility] Start: 01-23-2024 End: 01-23-2024 ambulatory David Chambers Facility:[facility] Start: 01-09-2024 End: 01-09-[address] David Chambers MD -Laboratory, [facility] Start: 01-09-2024 End: 01-09-2024 ambulatory David Chambers Facility:[facility] Start: 05-01-2023 End: 05-01-2023 ambulatory [facility] Work Phone: Start: 05-01-2023 End: 05-01-2023 Patient encounter procedure [facility] Work Phone: Start: 03-15-2023 End: 03-15-2023 ambulatory [facility] Work Phone: Start: 03-15-2023 End: 03-15-2023 Discharged Recurring [facility]-Physical Therapy Work Phone: Start: 02-26-2023 End: 02-26-2023 ambulatory [facility] Work Phone: Start: 02-26-2023 End: 02-26-2023 [facility] Work [facility] Start: 01-26-2023 End: 01-26-2023 ambulatory [facility] Work Phone: Start: 01-26-2023 End: 01-26-2023 Patient encounter procedure [facility] Work Phone: Start: 11-06-2022 End: 11-06-2022 ambulatory [facility] Work Phone: Start: 11-06-2022 End: 11-06-2022 Patient encounter procedure [facility] Work Phone: Start: 10-25-2022 End: 10-25-2022 ambulatory [facility] Work Phone: Start: 10-25-2022 End: 10-25-2022 Patient encounter procedure [facility] Start: 05-31-2022 End: 05-31-2022 ambulatory [facility] Work Phone: Start: 05-31-2022 End: 05-31-2022 Patient encounter procedure [facility] Start: 05-15-2022 End: 05-15-2022 ambulatory [facility] Work Phone: Start: 05-15-2022 End: 05-15-2022 Patient encounter procedure [facility] Start: 04-26-2022 End: 04-26-2022 ambulatory [facility] Work Phone: Start: 04-26-2022 End: 04-26-2022 Patient encounter procedure [facility] Start: 02-02-2022 End: 02-02-2022 ambulatory [facility] Work Phone: Start: 02-02-2022 End: 02-02-2022 Patient encounter procedure [facility]Out[facility] D[facility] Start: 11-16-2021 End: 11-16-2021 Patient encounter procedure [facility] Start: 09-12-2021 End: 09-12-[address] David Chambers Work Phone: [facility] Start: 08-26-2021 End: 08-26-[address] David Chambers Work Phone: [facility]-Laboratory, [facility] Start: 08-20-2021 End: 08-20-[address] David Chambers Work Phone: [facility] Start: 07-27-2021 End: 07-27-[address] David Chambers Work Phone: [facility] Start: 07-14-2021 End: 07-14-[address] David Chambers Work Phone: [facility] Start: 07-04-2021 End: 07-04-[address] [facility] Start: 06-24-2021 Non-patient / Non-visit Dr. David Chambers Work Phone: [facility] Start: 06-23-2021 End: 06-23-[address] David Chambers Work Phone: [facility]-P[facility] Services/Neurology Start: 06-22-2021 Non-patient / Non-visit Dr. David Chambers Work Phone: [facility] Start: 06-21-2021 End: 06-21-[address] [facility] Start: 06-06-2021 End: 06-06-[address] [facility] Start: 05-23-2021 End: 05-23-2021 Patient encounter procedure [facility], [place] Start: 05-04-2021 End: 05-04-2021 Patient encounter procedure [facility]-Radiology, [place] Start: 02-23-2021 End: 02-23-2021 Patient encounter procedure [facility], [place] Start: 01-31-2021 End: 01-31-2021 Patient encounter procedure [facility], [facility] Procedures Date Procedure Procedure Detail Performing Clinician Start: 10-29-2024 Urnls dip stick/tabl et reagent auto microscopy Dr. David Chambers MD Work Phone: Start: 10-29-[address] David Chambers MD Work Phone: Start: 09-17-2024 Screening mammography Yesica Chambers MD Work Phone: Start: 06-04-[address] David harmon MD Work Phone: Start: 02-26-2023 Plain x-ray of pelvi s and lower extremity Start: 02-26-2023 Radiography of ankle Start: 02-02-2022 Dual energy X-ray absorptiometry Start: 02-02-2022 Screening mammography Start: 07-14-2021 CT of chest without contrast Dr. David Chambers Work Phone: Start: 05-04-2021 Plain x-ray of pelvi s and lower extremity Start: 01-31-2021 Respiratory Panel (PCR) Bacteria identified in Urine by Culture History of cataract extraction Hx of cataract surgery Comment on above: 2015 History of cholecystectomy Hx of cholecystectomy Urine culture Plan of Treatment Date Care Activity Detail Author Start: 06-04-2024 Colonoscopy w/biopsy single/multiple COLONOSCOPY AND BIOPSY [facility] Start: 06-04-2024 Colsc flexible w/con trol bleeding any method COLONOSCOPY W/CONTROL BLEED [facility] Start: 06-04-2024 Colsc flx w/rmvl of tumor polyp lesion snare tq COLONOSCOPY W/LESION REMOVAL [facility] Start: 06-04-2024 Patient discharge [facility] Start: 09-12-2021 Plain chest X-ray Chest PA and Later al [facility] Work Phone: Patient referral [facility] Work Phone: [facility] Work Phone: Immunizations Immunization Date Immunization Notes Care Provider [place] 05-13-2020 Covid (Pfizer) [facility] 04-22-2020 Covid (Pfizer) [facility] 11-21-2016 Influenza virus vaccine [facility] Payers Date Payer Category Payer Self-pay [id number] 2015 Medicare [id number] Medicare [id number] Medicare [id number] Unknown [id number] 2.16.8 [id number] Unknown [id number] 2.16.8 [id number] Unknown [id number] 2.16.8 [id number] Unknown [id number] 2.16.8 [id number] Unknown [id number] 2.16.8 [id number] Unknown [id number] 2.16.8 40.1.983825.3.579.2.462 Unknown [id number] 2.16.8 40.1.377482.3.579.2.462 Unknown [id number] 2.16.8 40.1.350233.3.579.2.462 Unknown [id number] 2.16.8 40.1.118587.3.579.2.462 Unknown [id number] 2.16.8 40.1.505238.3.579.2.462 Unknown [id number] 2.16.8 40.1.430803.3.579.2.462 Unknown [id number] 2.16.8 40.1.453049.3.579.2.462 Unknown [id number] 2.16.8 40.1.330780.3.579.2.462 Unknown [id number] 2.16.8 40.1.502826.3.579.2.462 Unknown [id number] 2.16.8 40.1.298830.3.579.2.462 Unknown [id number] 2.16.8 40.1.779787.3.579.2.462 Unknown [id number] 2.16.8 40.1.628159.3.579.2.462 Unknown [id number] 2.16.8 40.1.423436.3.579.2.462 Unknown [id number] 2.16.8 40.1.955883.3.579.2.462 Unknown [id number] 2.16.8 40.1.856007.3.579.2.462 Unknown [id number] 2.16.8 40.1.916473.3.579.2.462 Unknown [id number] 2.16.8 40.1.818718.3.579.2.462 Unknown [id number] 2.16.8 40.1.369608.3.579.2.462 Unknown [id number] 2.16.8 40.1.777665.3.579.2.462 Unknown [id number] 2.16.8 40.1.042034.3.579.2.462 Social History Date Type Detail Facility Start: 09-30-2020 End: 08-20-2021 Tobacco smoking status HIIS Unknown if ever smoked [facility] Start: 12-22-2016 None [facility] Start: 12-22-2016 Alone [facility] Start: 07-09-2020 Non-smoker [facility] Start: 1950 Sex Assigned At Female [facility] Start: 12-09-2023 End: 05-30-2024 Tobacco smoking status NHIS Never smoked tobacco (finding) [facility] Start: 05-06-2024 End: 06-04-2024 Sex Female (finding) [facility] Not [facility] NEGATED: Highlighted row Not [facility] Goals Date Patient Goal Desired Activity /State Mental Status Date Assessment Result Facility 06-04-2024 Cognitive function Light Pain [facility] Work Phone: Clinical Notes 03-16-2023 to 11-10-2024 Note Date & Type Note Facility 11-10-2024 Evaluation note Diagnosis Onset Date Resolution Left shoulder pain acute Septem 2024 10:58am Primary osteoarthritis, left shoulder acute November 10, 2024 10:58am [facility] Work Phone: 1(433) 664-533909-22-2025 [facility] [address] [place] [address] [address] [place] [address] OFFICE VISIT Date of Service: 11/10/24 MR#: [id number] Acct: [id number] Name: IRIS BLUM Rep #: [id number] : 1950 Provider: Dr. Tony Guallpa MD Age/Sex: 74/F Location: [facility] Status: Signed Intake Vital Signs 06/04/24 07:06 11/10/24 11:04 Height 5 ft 3 in 5 ft 3 in Weight: 307 lb BMI 54.3 Intake Visit Reasons: LEFT SHOULDER Chief Complaint: Left Shoulder Pain Is patient in pain?: Yes Pain scale (1-10): 8 Allergies adhesive tape Allergy (Verified 11/10/24 11:05) Rash codeine Allergy (Verified 11/10/24 11:05) Hives Opioids - Morphine Analogues Allergy (Verified 11/10/24 11:05) Hives fosinopril (From Monopril) Adverse Reaction (Verified 11/10/24 11:05) severe cough Medications ?Medication ?Instructions ?Recorded ?Confirmed ?Type fluticasone propionate 50 1 spray NASAL DAILY allergie s 11/29/15 11/10/24 History mcg/actuation nasal spray,suspension loperamide 2 mg capsule 2 mg PO DAILY PRN Diarrhea 1 11/10/24 History pantoprazole 40 mg tablet,delayed 40 mg PO DAILY reflu x 11/29/15 11/10/24 History release albuterol sulfate 90 mcg/actuation 2 puff inhalation Q 6H PRN PRN 12/12/16 11/10/24 History aerosol inhaler Asthma duloxetine 60 mg capsule,delayed 60 mg PO DAILY mental health 12/12/16 11/10/24 History release adalimumab 40 mg/0.8 mL 40 mg subcut FR infection 11/10/24 History subcutaneous syringe kit gabapentin 300 mg capsule 300 mg PO BID nerve pain 02/0811/10/24 History multivitamin 1 tab PO DAILY vitamin 09/3011/10/24 History prednisone 10 mg tablet 10 mg PO DAILY PRN RA flair 09/30/20 11/10/24 History montelukast 10 mg tablet 10 mg PO DAILY asthma 11/10/24 History solifenacin 10 mg tablet 10 mg PO DAILY rheumatiod 11/10/24 History tramadol 50 mg tablet 50 mg PO TID PRN PRN pain 11/10/24 History triamterene 37.5 1 cap PO DAILY BP 08/07/23 0 11/10/24 History mg-hydrochlorothiazide 25 mg capsule amitriptyline 150 mg tablet 150 mg PO QHS 04/30/24 History furosemide 20 mg tablet 20 mg PO QDAY PRN edema 04/1911/10/24 History hydroxychloroquine 200 mg tablet 200 mg PO BID 5 11/10/24 History levothyroxine 200 mcg tablet 200 mcg PO QDAY 04/30/24 11/10/24 History amiodarone 200 mg tablet 200 mg PO DAILY #90 tabs 09/1211/10/24 Rx warfarin 2 mg tablet 6 mg PO SUMOTUWESA 05/30/24 11/10/24 History warfarin 4 mg tablet 8 mg PO THFR 05/30/24 History metoprolol tartrate 50 mg tablet 50 mg PO BID #180 tab s 08/07/24 11/10/24 Rx semaglutide 0.25 mg or 0.5 mg (2 0.25 mg subcut QWEEK 11/10/24 11/10/24 History mg/1.5 mL) subcutaneous pen injector (Ozempic) Have you fallen in the past year?: Yes (4 times) [facility] Medical History (Updated 11/10/24 @ 11:52 by Armaan Guallpa MD) Primary osteoarthritis, left shoulder Left shoulder pain Falls Loss of hearing Wears glasses Wears dentures Wears partial dentures Cancer Post-menopausal Fibromyalgia Anxiety History of steroid therapy Thyroid disease Bladder disease Walker as ambulation aid Anemia High cholesterol Back pain Migraine headache History of ulceration History of IBS Non-smoker CPAP (continuous positive airway pressure) dependence Asthma Shortness of breath on exertion History of pain when walking History of edema History of echocardiogram History of stress test Cardiology follow-up encounter History of atrial fibrillation Contact with and (suspected) exposure to other viral communicable diseases History of DVT (deep vein thrombosis) SVT (supraventricular tachycardia) Essential hypertension Wound infection after surgery Depression Hypothyroidism Vitamin B12 deficiency Vitamin D deficiency Insomnia Allergic rhinitis GERD (gastroesophageal reflux disease) Morbid obesity Right rotator cuff tear Rheumatoid arthritis Surgical History Hx of colonoscopy History of bilateral cataract extraction History of cholecystectomy Hx of gastric bypass Encounter for incision and drainage procedure Status post reverse total replacement of right shoulder S/P rotator cuff repair H/O: hysterectomy Family History Brother Colon cancer Lung cancer Mother Hypertension Thyroid disorder Father Ulcer Lung cancer Social History Smoking Status: Never smoker second hand exposure: No alcohol intake: never substance use type: does not use caffeine: Yes seatbelt use: always HPI LEFT SHOULDER Details: This documentation accurately reflects the service provided and the decisions made by me, Dr. Clarisse MD 11/10/24 0947. Part of today?s visit was documented by [ ], acting as scribe. IRIS BLUM is a 74 year old F here today for L shoulder pain. 2nd opinion. Considering RTSA but high risk due to obesity, HTN, and prior wound healing complications. RA, gastric bypass. On immune supressant meds. Had a prior infected R RTSA, with washout. Has anterior pain, 6-7 at worse, night pain, pain at rest. RHD. Tried 3 injections, only 1 worked. Does not see pain managament. Supplemental Info L shoulder XR - advanced OA of the shoulder 10/24/24 Coding Level of Care Code Off vis,new,level 4 Diagnoses Left shoulder pain M25.512 Primary osteoarthritis, left shoulder M19.012 Assessment and Plan Assessment and Plan (1) Left shoulder pain: Status: Acute Plan: IRIS BLUM is a 74 year old F here today for L shoulder pain. 2nd opinion. Patient has advanced joint degenerative changes of the left shoulder. Can try continue conservative management if the patient is desiring surgery thiswould be in the form of a reverse total shoulder arthroplasty. Clearly given the patient's medical risks obesity rheumatoid arthritis to immunocompromise state prior infection on the other side the patient would be at high risk both medical complications as well as complications related to the arthroplasty high rate of loosening due to the rheumatoid arthritis as well as high rate of infection and wound healing complications the patient has had many types of woundhealing complications including prior infected reverse total shoulder arthroplasty and wound healing complications related to prior skin excision. This would be best done and managed at a higher level center than our [facility] so therefore go ahead make referral to my colleague at the [facility] Dr. Monteiro. (2) Primary osteoarthritis, left shoulder: Status: Acute Clinical Quality Measures Falls Risk Screening/Assistive Devices Have you fallen in the past year?: Yes (4 times) Ortho Exam General General: Yes no acute distress Neurologic: Yes alert and Yes oriented x3 Psychologic: Yes reasonable and appropriate Left Shoulder Skin/Wound: Yes CDI, No ecchymosis, No erythema and No swelling Testing: No Hawkin's, No Neer's, No Speed's, No TTP Biceps, No TTP AC Joint, No empty can, No scapular winging and Yes belly press normal SHOULDER: normal motor and sens to axillary N, MRU and AIN/PIN. Hand warm well perfused normal radial pulse active FE 140, passive 150, ER 45. mild crepitus. strength 4+ in FE and ER> 11/10/24 1153 n MD> Date _ [facility]: Date (if applicable) CC: ~ [facility] [id number] History and physical note Author Guille Perez [facility] Note Date/Time June 04, 2024 7:[address] [facility] Medical Records Department [address] [place] [address] History & Physical Exam 06/04/24 0756 MR#: [id number] Acct: [id number] Name: IRIS BLUM Rep #:[id number] : 1950 73 From: Guille Perez DO PCP: Dr. David Chambers MD Status:REG S VT Location: [place] [address] HPI - General General Date of Admission: 06/04/24 Date of Service: 06/04/24 Chief Complaint: diarrhea HPI Narrative IRIS BLUM, is a 73 F who presents for the evaluation of chronic diarrhea Pt is here today to be scheduled for a screening colonoscopy. Pt has a PMHx of radiation to the [facility] for uterine cancer in 1989, gastric bypass and cholecystectomy. Pt has been experiencing chronic diarrhea since her radiation and feels it is related. Pt has seen Dr. Malone in the past but has never had any treatment for diarrhea besides PRN loperamide. Last colonoscopy was 5 years ago. She is unsure about the findings. She takes PPI daily but only has heartburn on occasion. [facility] Medical History Falls Loss of hearing Wears glasses Wears dentures Wears partial dentures Cancer Post-menopausal Fibromyalgia Anxiety History of steroid therapy Thyroid disease Bladder disease Walker as ambulation aid Anemia High cholesterol Back pain Migraine headache History of ulceration History of IBS Non-smoker CPAP (continuous positive airway pressure) dependence Asthma Shortness of breath on exertion History of pain when walking History of edema History of echocardiogram History of stress test Cardiology follow-up encounter History of atrial fibrillation Contact with and (suspected) exposure to other viral communicable diseases History of DVT (deep vein thrombosis) SVT (supraventricular tachycardia) Essential hypertension Wound infection after surgery Depression Hypothyroidism Vitamin B12 deficiency Vitamin D deficiency Insomnia Allergic rhinitis GERD (gastroesophageal reflux disease) Morbid obesity Right rotator cuff tear Rheumatoid arthritis Home Medications ?Medication ?Instructions ?Recorded ?Last Taken ?Type fluticasone propionate 50 1 spray NASAL DAILY allergie s 10/10/16 Unknown History mcg/actuation nasal spray,suspension loperamide 2 mg capsule 2 mg PO DAILY PRN Diarrhea 1 01/26/17 05:00 History 2 MG pantoprazole 40 mg tablet,delayed 40 mg PO DAILY reflu x 11/29/15 06/03/24 History release albuterol sulfate 90 mcg/actuation 2 puff inhalation Q 6H PRN PRN 12/12/16 Unknown History aerosol inhaler Asthma duloxetine 60 mg capsule,delayed 60 mg PO DAILY mental health 12/12/16 06/03/24 History release adalimumab 40 mg/0.8 mL 40 mg subcut FR infection Unknown History subcutaneous syringe kit gabapentin 300 mg capsule 300 mg PO BID nerve pain 02/0806/03/24 History multivitamin 1 tab PO DAILY vitamin 09/3006/03/24 History prednisone 10 mg tablet 10 mg PO DAILY PRN RA flair 09/30/20 Unknown History montelukast 10 mg tablet 10 mg PO DAILY asthma 06/03/24 History solifenacin 10 mg tablet 10 mg PO DAILY rheumatiod 06/03/24 History tramadol 50 mg tablet 50 mg PO TID PRN PRN pain 06/03/24 History triamterene 37.5 1 cap PO DAILY BP 08/07/23 0 06/04/24 History mg-hydrochlorothiazide 25 mg capsule metoprolol tartrate 50 mg tablet 50 mg PO BID #180 tab s 10/31/23 06/04/24 Rx colestipol 1 gram tablet 1 g PO QDAY #60 tabs 5 Unknown Rx Held on 05/30/24. Instructions: MD Ordered amitriptyline 150 mg tablet 150 mg PO QHS 04/30/24 History furosemide 20 mg tablet 20 mg PO QDAY PRN edema 04/19 04/15 Unknown History hydroxychloroquine 200 mg tablet 200 mg PO BID 5 06/03/24 History levothyroxine 200 mcg tablet 200 mcg PO QDAY 04/30/24 06/03/24 History amiodarone 200 mg tablet 200 mg PO DAILY #90 tabs 09/1206/04/24 Rx warfarin 2 mg tablet 6 mg PO SUMOTUWESA 05/30/24 05/31/24 History warfarin 4 mg tablet 8 mg PO THFR 05/30/24 History Allergy/AdvReac Type Severity Reaction Status Date / Time adhesive tape Allergy Rash Verified 06/04/24 07:04 codeine Allergy Hives Verified 06/04/24 07:04 Opioids - Morphine Analogues Allergy Hives Verified 06/04/24 07:04 fosinopril (From Monopril) AdvReac severe Verified 06/04/24 07:04 cough Family History Brother Colon cancer Lung cancer Mother Hypertension Thyroid disorder Father Ulcer Lung cancer Surgical History Hx of colonoscopy History of bilateral cataract extraction History of cholecystectomy Hx of gastric bypass Encounter for incision and drainage procedure Status post reverse total replacement of right shoulder S/P rotator cuff repair H/O: hysterectomy Social History Smoking Status: Never smoker second hand exposure: No alcohol intake: never substance use type: does not use caffeine: Yes seatbelt use: always ROS Constitutional Constitutional: Denies fatigue, fever(s), poor appetite, weight gain or weight loss Gastrointestinal Gastrointestinal: Denies belching, bloating, change in bowel habits, change in stool character, chewing difficulty, coffee ground emesis, constipation, cramping, diarrhea, dyspepsia, dysphagia, early satiety, excessive flatus, fecalincontinence, heartburn, hematemesis, hematochezia, hemorrhoids, loose stools, melena, nausea, odynophagia, rectal bleeding, tenesmus, vomiting or weight changes Vital Signs Vital Signs Vital Signs: 06/04/24 07:06 06/04/24 07:06 06/04/24 07:29 Temperature 97.5 F L 97.5 F L Temperature Source Temporal Pulse Rate 72 72 Respiratory Rate 18 18 Respiratory Pattern Normal Blood Pressure 128/61 H 128/61 H Blood Pressure Mean 83 Blood Pressure Source Monitor Blood Pressure Position Semi-Fowlers Blood Pressure Location Left Arm Pulse Ox 93 93 Oxygen Delivery Method Room Air Weight Weight: 310 lb 13.628 oz Body Mass Index (BMI) 55.0 Physical Exam Narrative General: Alert, Oriented x3, Cooperative, No apparent distress HEENT: Atraumatic, PERRLA, EOMI, Normocephalic Oral: Moist Mucosa Neck: Supple, No JVD Lungs: Diminished, normal air movement, No rhonchi, No wheeze, No rales Cardiovascular: Regular rate, regular rhythm, Normal S1, Normal S2, No murmurs Abdomen: Soft, Non Tender, Non-Distended, No Hepato-splenomegaly Extremities: No edema, Capillary Refill Less than 3 Seconds Psych/Mental Status: Normal Affect, Appropriate Results Lab / Micro Data Labs: Laboratory Results - last 24 hr 06/04/24 07:07: POC PT 14.3, INR 1.2 Assessment & Plan Assessment/Plan (1) Chronic diarrhea: PLAN: Assessment and Plan Assessment and Plan (1) Chronic diarrhea: Status: Chronic Plan: This is a 73 yo female pt here today to scheduled a colonoscopy. Pt has a long hx of diarrhea starting after radiation to the [facility] in 1989. Pt has seen Dr. Malone previously with last colonoscopy being 5 years ago. She will undergo colonoscopy for colon cancer screening and to rule out inflammation. Pt uses loperamide PRN. I will start her on colestipol 1 gram daily. She will f/u after procedure. -Colonoscopy -Start colestipol 1 gram daily -f/u after procedure Medications: New colestipol 1 g PO QDAY 60 tabs 2RF 06/04/24 0758 <Electronically signed by Guille Perez DO> Cosigner Signature (if applicable): CC: Dr. David Chambers MD; Guille Perez DO~ Signed [facility] Work Phone: 1(794) 809-733304-16-2025 Consult note [facility] Medical Records Department [address] [place] [address] Anesthesia Postop Eval II 06/04/24 0915 MR#: [id number] Acct: [id number] Name: IRIS BLUM Rep #:[id number] : 1950 73 From: Abdoulaye Camarillo MD PCP: Dr. David Chambers MD Status:REG S DC Y Race: C Location: [place] [address]-1 Anesthesia Postop Eval I Sum Postop Eval Completion status Anesthesia document: Postop Eval 1 completed: Yes Anesthesia Postop Eval I Summary Anesthesia Postop Eval I Summary: Anesthesia Postop Eval I: Assessment Summary Airway patent Yes 06/04/24 09:09 [email or web address] Spontaneous unlabored Yes 06/04/24 09:09 [email or web address] respirations Mental status Asleep 06/04/24 09:09 [email or web address] nausea No 06/04/24 09:09 [email or web address] Vomiting No 06/04/24 09:09 [email or web address] Anesthesia Postop Eval I: Fluid Summary Crystalloid volume administer 55 06/04/24 09:09 [email or web address] (ml) Colloids volume administered ( ml) Blood Product volume administered (ml) Total IV fluid infused 55 06/04/24 09:09 [email or web address] Anesthesia Postop Eval I: Summary Notes Anesthesia Complication No 06/04/24 09:09 [email or web address] Anesthesia Complication Comment: Post-operative progress note Anesthesia: Postop Eval II Evaluation Mental status: Awake Pain Level: 0 nausea: No Vomiting: No 06/04/2415 > Date _ Abdoulaye Camarillo MD Cosign Signature: Date CC: ~ Signed [facility]04-16-2025 Consult note Author Abdoulaye Camarillo [facility] Note Date/Time June 04, 2024 7:[address] [facility] Medical Records Department [address] [facility] [place] [address] Pre-Anesthesia Evaluation 06/04/24 0729 MR#: [id number] Acct: [id number] Name: IRIS BLUM Rep #:[id number] : 1950 73 From: Abdoulaye Camarillo MD PCP: Dr. David Chambers MD Status:REG S DC Y Race: C Location: [place] [address] ASA Classification* ASA Classification ASA Classification: 3 Assessment & Plan Anesthesia* Anesthesia Assessment Anesthesia Assessment: Discussed sedation and/or anesthesia options, risks, benefits, and alternatives with patient/parents/legal guardian/POA. Questions invited. The patient/parents/legal guardian/POA seems to understand and agrees to proceedwith anesthesia plan. Reviewed the physical assessment, medical history, allergy history and patient home medications list prior to surgery/procedure/anesthetic and documented any changes. Performed airway and anesthesia risk assessments. Anesthesia Type Anesthesia Type: MAC Anesthesia Focused Assessment* Temperature: 97.5 F Pulse Rate: 72 Blood Pressure: 128/61 Respiratory Rate: 18 Pulse Ox: 93 Airway Assessment Mouth opens: >3 cm Mallampati Score: II Focused Labs Anesthesia Preop lab: CBC WBC 5.9 K/mm3 (4.4-11.0) 04/23/24 11:20 04/23/24 RBC 4.75 M/mm3 (4.2-5.4) 04/23/24 11:20 04/23/24 Hgb 13.7 g/dL (12.0-15.0) 04/23/24 11:20 04/23/24 Hct 44.0 % (37-47) 04/23/24 11:20 04/23/24 Plt Count 250 K/mm3 (150-450) 04/23/24 11:20 04/23/24 CHEMISTRY Potassium 4.1 mmol/L (3.3-5.1) 05/22/24 11:45 05/22/24 Sodium 138 mmol/L (133-145) 05/22/24 11:45 05/22/24 Magnesium 1.9 mg/dL (1.6-2.6) 08/06/23 00:52 08/06/23 BUN 22 mg/dL (4-19) H 05/22/24 11:45 05/22/24 Creatinine 1.05 mg/dL (0.70-1.20) 05/22/24 11:45 05/22/24 Glucose 85 mg/dL (70-99) 05/22/24 11:45 05/22/24 TSH 3.930 uIU/mL (0.300-4.200) 05/22/24 11:45 0405/13 COAG PT 25.2 SECONDS (11.7-14.9) H 05/22/24 11:46 04/0 05/13 INR 1.0 09/17/23 16:57 09/17/23 Pre-Assessment Diagnosis/Proposed Procedure Planned Operative Procedure(s): CSCOPE Anesthesia History Anesthesia History - logger 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 When Was Last Pacemaker Check QUESTION #4 FULL TEXT: You/Your Family Experience fever (hyperthermia) with Anesthesia Last Oral Intake Last Oral intake: Last Oral Intake NPO since 22:00 06/04/24 07:06 Meds taken in AM with sips of Yes 06/04/24 07:06 water? 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 - logger all round: PONV - logger all round Female Yes 05/30/24 13:26 HX of Motion Sickness No 05/30/24 13:26 HX of N/V After Surgery Yes 05/30/24 13:26 Non-Smoker Yes 05/30/24 13:26 Duration of Surgery greater No 05/30/24 13:26 than 60 minutes Number of Risk Factors 3 05/30/24 13:26 PONV Score Moderate Risk 05/30/24 13:26 Height & Weight Height & Weight: Anesthesia: Height & Weight Height 5 ft 3 in 06/04/24 07:06 Weight: 141 kg 06/04/24 07:06 Body Mass Index (BMI) 55.0 06/04/24 07:06 Respiratory Assessment Respiratory Assessment - logger all round: Respiratory Tract Infection Hx - logger all round Hx Respiratory Tract Infection No 05/30/24 13:26 STOP Sleep Apnea STOP Sleep Apnea - logger all round: STOP Sleep Apnea - logger all round Hx Hypertension Yes: CONTROLLED WITH MED 05/30/24 13:26 Hx Sleep Apnea Yes 05/30/24 13:26 CPAP Yes: NONCOMPLIANT 05/30/24 13:26 BIPAP No 05/30/24 13:26 Do you snore loudly (louder than talking or can be heard Do you often feel tired/ fatigued/ sleepy during daytime? Has anyone observed you stop breathing during sleep? STOP Results Positive 05/30/24 13:26 QUESTION #5 FULL TEXT : Do you snore loudly (louder than talking or can be heard through closed doors)? 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 Specify any problems Hx of Preganancy in last 3 No 05/30/24 13:26 Months Nurse Filling Out Transfusion DSCHRIBER 05/30/24 13:26 & Questions: Date: 05/30/24 05/30/24 13:26 Time: 13:28 05/30/24 13:26 Patient unable to answer at this time (ie. confused, unrespo /Reproduction History /Reproductive History - logger all round: /Reproductive Hx- logger all round Hx Now No 05/30/24 13:26 Gestational Age (in weeks): EDC: Hx Hx Para Hx Section SAB No 05/30/24 13:26 PFSH Medical History Falls Loss of hearing Wears glasses Wears dentures Wears partial dentures Cancer Post-menopausal Fibromyalgia Anxiety History of steroid therapy Thyroid disease Bladder disease Walker as ambulation aid Anemia High cholesterol Back pain Migraine headache History of ulceration History of IBS Non-smoker CPAP (continuous positive airway pressure) dependence Asthma Shortness of breath on exertion History of pain when walking History of edema History of echocardiogram History of stress test Cardiology follow-up encounter History of atrial fibrillation Contact with and (suspected) exposure to other viral communicable diseases History of DVT (deep vein thrombosis) SVT (supraventricular tachycardia) Essential hypertension Wound infection after surgery Depression Hypothyroidism Vitamin B12 deficiency Vitamin D deficiency Insomnia Allergic rhinitis GERD (gastroesophageal reflux disease) Morbid obesity Right rotator cuff tear Rheumatoid arthritis Home Medications ?Medication ?Instructions ?Recorded ?Last Taken ?Type fluticasone propionate 50 1 spray NASAL DAILY allergie s 11/29/15 Unknown History mcg/actuation nasal spray,suspension loperamide 2 mg capsule 2 mg PO DAILY PRN Diarrhea 1 01/26/17 05:00 History 2 MG pantoprazole 40 mg tablet,delayed 40 mg PO DAILY reflu x 11/29/15 06/03/24 History release albuterol sulfate 90 mcg/actuation 2 puff inhalation Q 6H PRN PRN 12/12/16 Unknown History aerosol inhaler Asthma duloxetine 60 mg capsule,delayed 60 mg PO DAILY mental health 12/12/16 06/03/24 History release adalimumab 40 mg/0.8 mL 40 mg subcut FR infection Unknown History subcutaneous syringe kit gabapentin 300 mg capsule 300 mg PO BID nerve pain 02/0806/03/24 History multivitamin 1 tab PO DAILY vitamin 09/3006/03/24 History prednisone 10 mg tablet 10 mg PO DAILY PRN RA flair 09/30/20 Unknown History montelukast 10 mg tablet 10 mg PO DAILY asthma 06/03/24 History solifenacin 10 mg tablet 10 mg PO DAILY rheumatiod 06/03/24 History tramadol 50 mg tablet 50 mg PO TID PRN PRN pain 06/03/24 History triamterene 37.5 1 cap PO DAILY BP 08/07/23 0 06/04/24 History mg-hydrochlorothiazide 25 mg capsule metoprolol tartrate 50 mg tablet 50 mg PO BID #180 tab s 10/31/23 06/04/24 Rx colestipol 1 gram tablet 1 g PO QDAY #60 tabs 5 Unknown Rx Held on 05/30/24. Instructions: MD Ordered amitriptyline 150 mg tablet 150 mg PO QHS 04/30/24 History furosemide 20 mg tablet 20 mg PO QDAY PRN edema 04/19 04/15 Unknown History hydroxychloroquine 200 mg tablet 200 mg PO BID 5 06/03/24 History levothyroxine 200 mcg tablet 200 mcg PO QDAY 04/30/24 06/03/24 History amiodarone 200 mg tablet 200 mg PO DAILY #90 tabs 09/1206/04/24 Rx warfarin 2 mg tablet 6 mg PO SUMOTUWESA 05/30/24 05/31/24 History warfarin 4 mg tablet 8 mg PO THFR 05/30/24 History Allergy/AdvReac Type Severity Reaction Status Date / Time adhesive tape Allergy Rash Verified 06/04/24 07:04 codeine Allergy Hives Verified 06/04/24 07:04 Opioids - Morphine Analogues Allergy Hives Verified 06/04/24 07:04 fosinopril (From Monopril) AdvReac severe Verified 06/04/24 07:04 cough Family History Brother Colon cancer Lung cancer Mother Hypertension Thyroid disorder Father Ulcer Lung cancer Surgical History Hx of colonoscopy History of bilateral cataract extraction History of cholecystectomy Hx of gastric bypass Encounter for incision and drainage procedure Status post reverse total replacement of right shoulder S/P rotator cuff repair H/O: hysterectomy Social History Smoking Status: Never smoker second hand exposure: No alcohol intake: never substance use type: does not use caffeine: Yes seatbelt use: always Review of Systems (Anesthesia) ROS Narrative System reviewed and no additional complaints, except as documented. 06/04/24728 <Electronically signed by Abdoulaye Camarillo MD > Date _ Abdoulaye Camarillo MD Cosigner Signature: Date CC: ~ Signed [facility] Work Phone: 1(983) 130-934204-16-2025 Consult note [facility] Medical Records Department [address] [place] [address] Anesthesia Postop Eval I 06/04/24 0908 MR#: [id number] Acct: [id number] Name: IRIS BLUM Rep #:[id number] : 1950 73 From: Michael Reardon PCP: Dr. David Chambers MD Status:REG S DC Y Race: C Location: [place] [address] Anesthesia: Postop Eval I Current Vital Signs Temperature: 97 F Pulse Rate: 55 Blood Pressure: 101/67 Respiratory Rate: 16 Pulse Ox: 100 Oxygen Delivery Method: Room Air Assessment Airway patent: Yes Spontaneous unlabored respirations: Yes Mental status: Asleep nausea: No Vomiting: No Anesthesia Complication: No Fluid Hydration Crystalloid volume administer (ml): 55 Total IV fluid infused: 55 Progress Note Anesthesia document: Postop Eval 1 completed: Yes 06/04/24 0909 > Date _ Michael Vaughanigner Signature: Date CC: ~ Signed [facility]04-16-2025 Procedure note [facility] Medical Records Department [facility] [place] [address] Operative Report - CC Letter MR#: [id number] Acct: [id number] Name: IRIS BLUM Rep #:[id number] : 1950 73 From: Guille Perez DO PCP: Dr. David Chambers MD Status:REG S DC 06/04/2024 David Chambers MD [address] [place] [id number] Re : Colonoscopy procedure for Iris Blum Dear Dr. Chambers This procedure was performed on Tuesday, June 04, 2024. My impressions and recommendations are as follows: Impressions : - Seven 1 to 2 mm polyps in the rectum, in the ascending colon and in the cecum, removed with a cold snare. Resected and retrieved. - Two non-bleeding colonic angiodysplastic lesions. Treated with a monopolar probe. - Diverticulosis in the recto-sigmoid colon, in the sigmoid colon, in the descending colon, at the hepatic flexure and in the ascending colon. - Mild inflammation was found in the ileum secondary to ileitis. Biopsied. Recommendations : - Discharge patient to home. - Resume previous diet. - Continue present medications. - Await pathology results. - Repeat colonoscopy in 1 year for surveillance. My findings are described in the full procedure note, which is enclosed. If I can be of further assistance, please feel free to contact me at . Sincerely, Guille Perez DO 06/04/2024 9:08:16 AM This report has been signed electronically. 06/04/24907 Date _ Guille Perez DO Cosigner Signature: Date (if indicated) CC: Dr. David Chambers MD; Guille Perez DO ~ Date Dictated: 06/04/24 08 Date Transcribed: Sorter/Assay Tech: RF Signed [facility]04-16-2025 Procedure note [facility] Medical Records Department [address] [facility] [place] [address] Colonoscopy Report MR#: [id number] Acct: [id number] Name: IRIS BLUM Rep #:[id number] : 1950 73 From: Guille Perez DO PCP: Dr. David Chambers MD Status:REG S DC Patient Name: Iris Blum Procedure Date: 06/04/2024 8:02 AM Date of : 1950 Age: 73 Procedure: Colonoscopy Indications: Chronic diarrhea Providers: Guille Perez DO Referring MD: David Chambers MD Medicines: Monitored Anesthesia Care Patient Profile: This is a 73 year old female. Refer to note in patient chart for documentation of history and physical. Last Colonoscopy: several years ago. Complications: No immediate complications. Procedure: Pre-Anesthesia Assessment: - Prior to the procedure, a History and Physical was performed, and patient medications and allergies were reviewed. The patient is competent. The risks and benefits of the procedure and the sedation options and risks were discussed with the patient. All questions were answered and informed consent was obtained. Patient identification and proposed procedure were verified by the physician in the pre-procedure area. Mental Status Examination: alert and oriented. Airway Examination: normal oropharyngeal airway and neck mobility. Respiratory Examination: clear to auscultation. CV Examination: normal. Prophylactic Antibiotics: The patient does not require prophylactic antibiotics. Prior Anticoagulants: The patient has taken no anticoagulant or antiplatelet agents except for NSAID medication. ASA Grade Assessment: II - A patient with mild systemic disease. After reviewing the risks and benefits, the patient was deemed in satisfactory condition to undergo the procedure. The anesthesia plan was to use monitored anesthesia care (MAC). Immediately prior to administration of medications, the patient was re-assessed for adequacy to receive sedatives. The heart rate, respiratory rate, oxygen saturations, blood pressure, adequacy of pulmonary ventilation, and response to care were monitored throughout the procedure. The physical status of the patient was re-assessed after the procedure. After I obtained informed consent, the scope was passed under direct vision. Throughout the procedure, the patient's blood pressure, pulse, and oxygen saturations were monitored continuously. The Colonoscope was introduced through the anus and advanced to the terminal ileum. The colonoscopy was performed without difficulty. The patient tolerated the procedure well. The quality of the bowel preparation was adequate. The terminal ileum, ileocecal valve, appendiceal orifice, and rectum were photographed. Scope In: 8:29:29 AM Scope Withdrawal Time 0 hours 23 minutes 9 seconds Scope Out: 8:56:44 AM Total Procedure Duration Time 0 hours 27 minutes 15 seconds Findings: The perianal and digital rectal examinations were normal. Seven sessile polyps were found in the rectum, ascending colon and cecum. The polyps were 1 to 2 mm in size. These polyps were removed with a cold snare. Resection and retrieval were complete. Verification of patient identification for the specimen was done. Estimated blood loss was minimal. Two medium-sized localized angiodysplastic lesions without bleeding were found in the recto-sigmoid colon and in the sigmoid colon. Coagulation for bleeding prevention using monopolar probe was successful. Estimated blood loss was minimal. Multiple small and large-mouthed diverticula were found in the recto-sigmoid colon, sigmoid colon, descending colon, hepatic flexure and ascending colon. Patchy mild inflammation characterized by congestion (edema) and erythema was found in the terminal ileum. Biopsies were taken with a cold forceps for histology. Verification of patient identification for the specimen was done. Estimated blood loss was minimal. Impression: - Seven 1 to 2 mm polyps in the rectum, in the ascending colon and in the cecum, removed with a cold snare. Resected and retrieved. - Two non-bleeding colonic angiodysplastic lesions. Treated with a monopolar probe. - Diverticulosis in the recto-sigmoid colon, in the sigmoid colon, in the descending colon, at the hepatic flexure and in the ascending colon. - Mild inflammation was found in the ileum secondary to ileitis. Biopsied. Recommendation: - Discharge patient to home. - Resume previous diet. - Continue present medications. - Await pathology results. - Repeat colonoscopy in 1 year for surveillance. Procedure Code(s): --- Professional --- 72813, 59, Colonoscopy, flexible; with control of bleeding, any method 70591, Colonoscopy, flexible; with removal of tumor(s), polyp(s), or other lesion(s) by snare technique 24734, 59, Colonoscopy, flexible; with biopsy, single or multiple CPT copyright 2021 [employer]. All rights reserved. The codes documented in this report are preliminary and upon buttonhole maker hand review may be revised to meet current compliance requirements. Guille Perez DO 06/04/2024 9:08:16 AM This report has been signed electronically. Number of Addenda: 0 Note Initiated On: 06/04/2024 8:02 AM 06/04/24 0908 Date _ Guille Perez DO Cosigner Signature: Date (if indicated) CC: Dr. David Chambers MD; Guille Perez DO ~ Date Dictated: 06/04/24 0802 Date Transcribed: Sorter/Assay Tech: RF Signed [facility]04-16-2025 Evaluation note* Diagnosis Onset Date Resolution Status Admit Date Chronic diarrhea chronic June 042024 6:51am [facility] Work Phone: 1(162) 305-729304-16-2025 History and physical note [facility] Medical Records Department [address] [place] [address] History & Physical Exam 06/04/24 0756 MR#: [id number] Acct: [id number] Name: IRIS BLUM Rep #:[id number] : 1950 73 From: Guille Perez DO PCP: Dr. David Chambers MD Status:REG S VT Location: [place] [address] HPI - General General Date of Admission: 06/04/24 Date of Service: 06/04/24 Chief Complaint: diarrhea HPI Narrative IRIS BLUM, is a 73 F who presents for the evaluation of chronic diarrhea Pt is here today to be scheduled for a screening colonoscopy. Pt has a PMHx of radiation to the abdfor uterine cancer in 1989, gastric bypass and cholecystectomy. Pt has been experiencing chronic diarrhea since her radiation and feels it is related. Pt has seen Dr. Malone in the past but has neverhad any treatment for diarrhea besides PRN loperamide. Last colonoscopy was 5 years ago. She is unsure about the findings. She takes PPI daily but only has heartburn on occasion. [facility] Medical History Falls Loss of hearing Wears glasses Wears dentures Wears partial dentures Cancer Post-menopausal Fibromyalgia Anxiety History of steroid therapy Thyroid disease Bladder disease Walker as ambulation aid Anemia High cholesterol Back pain Migraine headache History of ulceration History of IBS Non-smoker CPAP (continuous positive airway pressure) dependence Asthma Shortness of breath on exertion History of pain when walking History of edema History of echocardiogram History of stress test Cardiology follow-up encounter History of atrial fibrillation Contact with and (suspected) exposure to other viral communicable diseases History of DVT (deep vein thrombosis) SVT (supraventricular tachycardia) Essential hypertension Wound infection after surgery Depression Hypothyroidism Vitamin B12 deficiency Vitamin D deficiency Insomnia Allergic rhinitis GERD (gastroesophageal reflux disease) Morbid obesity Right rotator cuff tear Rheumatoid arthritis Home Medications ?Medication ?Instructions ?Recorded ?Last Taken ?Type fluticasone propionate 50 1 spray NASAL DAILY allergie s 11/29/15 Unknown History mcg/actuation nasal spray,suspension loperamide 2 mg capsule 2 mg PO DAILY PRN Diarrhea 1 01/26/17 05:00 History 2 MG pantoprazole 40 mg tablet,delayed 40 mg PO DAILY reflu x 11/29/15 06/03/24 History release albuterol sulfate 90 mcg/actuation 2 puff inhalation Q 6H PRN PRN 12/12/16 Unknown History aerosol inhaler Asthma duloxetine 60 mg capsule,delayed 60 mg PO DAILY mental health 12/12/16 06/03/24 History release adalimumab 40 mg/0.8 mL 40 mg subcut FR infection Unknown History subcutaneous syringe kit gabapentin 300 mg capsule 300 mg PO BID nerve pain 02/0806/03/24 History multivitamin 1 tab PO DAILY vitamin 09/3006/03/24 History prednisone 10 mg tablet 10 mg PO DAILY PRN RA flair 09/30/20 Unknown History montelukast 10 mg tablet 10 mg PO DAILY asthma 06/03/24 History solifenacin 10 mg tablet 10 mg PO DAILY rheumatiod 06/03/24 History tramadol 50 mg tablet 50 mg PO TID PRN PRN pain 06/03/24 History triamterene 37.5 1 cap PO DAILY BP 08/07/23 0 06/04/24 History mg-hydrochlorothiazide 25 mg capsule metoprolol tartrate 50 mg tablet 50 mg PO BID #180 tab s 10/31/23 06/04/24 Rx colestipol 1 gram tablet 1 g PO QDAY #60 tabs 5 Unknown Rx Held on 05/30/24. Instructions: MD Ordered amitriptyline 150 mg tablet 150 mg PO QHS 04/30/24 History furosemide 20 mg tablet 20 mg PO QDAY PRN edema 04/19 04/15 Unknown History hydroxychloroquine 200 mg tablet 200 mg PO BID 5 06/03/24 History levothyroxine 200 mcg tablet 200 mcg PO QDAY 04/30/24 06/03/24 History amiodarone 200 mg tablet 200 mg PO DAILY #90 tabs 09/1206/04/24 Rx warfarin 2 mg tablet 6 mg PO SUMOTUWESA 05/30/24 05/31/24 History warfarin 4 mg tablet 8 mg PO THFR 05/30/24 History Allergy/AdvReac Type Severity Reaction Status Date / Time adhesive tape Allergy Rash Verified 06/04/24 07:04 codeine Allergy Hives Verified 06/04/24 07:04 Opioids - Morphine Analogues Allergy Hives Verified 06/04/24 07:04 fosinopril (From Monopril) AdvReac severe Verified 06/04/24 07:04 cough Family History Brother Colon cancer Lung cancer Mother Hypertension Thyroid disorder Father Ulcer Lung cancer Surgical History Hx of colonoscopy History of bilateral cataract extraction History of cholecystectomy Hx of gastric bypass Encounter for incision and drainage procedure Status post reverse total replacement of right shoulder S/P rotator cuff repair H/O: hysterectomy Social History Smoking Status: Never smoker second hand exposure: No alcohol intake: never substance use type: does not use caffeine: Yes seatbelt use: always ROS Constitutional Constitutional: Denies fatigue, fever(s), poor appetite, weight gain or weight loss Gastrointestinal Gastrointestinal: Denies belching, bloating, change in bowel habits, change in stool character, chewing difficulty, coffee ground emesis, constipation, cramping, diarrhea, dyspepsia, dysphagia, earlysatiety, excessive flatus, fecalincontinence, heartburn, hematemesis, hematochezia, hemorrhoids, loose stools, melena, nausea, odynophagia, rectal bleeding, tenesmus, vomiting or weight changes Vital Signs Vital Signs Vital Signs: 06/04/24 07:06 06/04/24 07:06 06/04/24 07:29 Temperature 97.5 F L 97.5 F L Temperature Source Temporal Pulse Rate 72 72 Respiratory Rate 18 18 Respiratory Pattern Normal Blood Pressure 128/61 H 128/61 H Blood Pressure Mean 83 Blood Pressure Source Monitor Blood Pressure Position Semi-Fowlers Blood Pressure Location Left Arm Pulse Ox 93 93 Oxygen Delivery Method Room Air Weight Weight: 310 lb 13.628 oz Body Mass Index (BMI) 55.0 Physical Exam Narrative General: Alert, Oriented x3, Cooperative, No apparent distress HEENT: Atraumatic, PERRLA, EOMI, Normocephalic Oral: Moist Mucosa Neck: Supple, No JVD Lungs: Diminished, normal air movement, No rhonchi, No wheeze, No rales Cardiovascular: Regular rate, regular rhythm, Normal S1, Normal S2, No murmurs Abdomen: Soft, Non Tender, Non-Distended, No Hepato-splenomegaly Extremities: No edema, Capillary Refill Less than 3 Seconds Psych/Mental Status: Normal Affect, Appropriate Results Lab / Micro Data Labs: Laboratory Results - last 24 hr 06/04/24 07:07: POC PT 14.3, INR 1.2 Assessment & Plan Assessment/Plan (1) Chronic diarrhea: PLAN: Assessment and Plan Assessment and Plan (1) Chronic diarrhea: Status: Chronic Plan: This is a 73 yo female pt here today to scheduled a colonoscopy. Pt has a long hx of diarrhea starting after radiation to the abd in 1989. Pt has seen Dr. Malone previously with last colonoscopy being 5 years ago. She will undergo colonoscopy for colon cancer screening and to rule out inflammation.Pt uses loperamide PRN. I will start her on colestipol 1 gram daily. She will f/u after procedure. -Colonoscopy -Start colestipol 1 gram daily -f/u after procedure Medications: New colestipol 1 g PO QDAY 60 tabs 2RF 06/04/24 5738 Cosigner Signature (if applicable): CC: Dr. David Chambers MD; Guille Friend, DO~ Signed [facility]04-16-2025 [facility] Medical Records Department [address] [place] [address] History Physical Exam 06/04/24 0756 MR#: [id number] Acct: [id number] Name: IRIS BLUM Rep #: [id number] : 1950 73 From: Guille Perez DO PCP: Dr. David Chambers MD Status:[facility] Location: [place] [address] HPI - General General Date of Admission: 06/04/24 Date of Service: 06/04/24 Chief Complaint: diarrhea HPI Narrative IRIS BLUM, is a 73 F who presents for the evaluation of chronic diarrhea Pt is here today to be scheduled for a screening colonoscopy. Pt has a PMHx of radiation to the [facility] for uterine cancer in 1989, gastric bypass and cholecystectomy. Pt has been experiencing chronic diarrhea since her radiation and feels it is related. Pt has seen Dr. Malone in the past but has never had any treatment for diarrhea besides PRN loperamide. Last colonoscopy was 5 years ago. She is unsure about the findings. She takes PPI daily but only has heartburn on occasion. [facility] Medical History Falls Loss of hearing Wears glasses Wears dentures Wears partial dentures Cancer Post-menopausal Fibromyalgia Anxiety History of steroid therapy Thyroid disease Bladder disease Walker as ambulation aid Anemia High cholesterol Back pain Migraine headache History of ulceration History of IBS Non-smoker CPAP (continuous positive airway pressure) dependence Asthma Shortness of breath on exertion History of pain when walking History of edema History of echocardiogram History of stress test Cardiology follow-up encounter History of atrial fibrillation Contact with and (suspected) exposure to other viral communicable diseases History of DVT (deep vein thrombosis) SVT (supraventricular tachycardia) Essential hypertension Wound infection after surgery Depression Hypothyroidism Vitamin B12 deficiency Vitamin D deficiency Insomnia Allergic rhinitis GERD (gastroesophageal reflux disease) Morbid obesity Right rotator cuff tear Rheumatoid arthritis Home Medications ???Medication ???Instructions ???Recorded ???Last Taken ???Type fluticasone propionate 50 1 spray NASAL DAILY allergies 11/19 Unknown History mcg/actuation nasal spray,suspension loperamide 2 mg capsule 2 mg PO DAILY PRN Diarrhea 6 01/26/17 05:00 History 2 MG pantoprazole 40 mg tablet,delayed 40 mg PO DAILY reflux 11/29/15 History release albuterol sulfate 90 mcg/actuation 2 puff inhalation Q6H PRN PRN Unknown History aerosol inhaler Asthma duloxetine 60 mg capsule,delayed 60 mg PO DAILY mental health 12/1206/03/24 History release adalimumab 40 mg/0.8 mL 40 mg subcut FR infection 09/29/20 Unknown History subcutaneous syringe kit gabapentin 300 mg capsule 300 mg PO BID nerve pain 09/30/20 06/03/24 History multivitamin 1 tab PO DAILY vitamin 09/30/20 History prednisone 10 mg tablet 10 mg PO DAILY PRN RA flair Unknown History montelukast 10 mg tablet 10 mg PO DAILY asthma 08/07/23 History solifenacin 10 mg tablet 10 mg PO DAILY rheumatiod 08/07/23 06/03/24 History tramadol 50 mg tablet 50 mg PO TID PRN PRN pain 08/07/23 06/03/24 History triamterene 37.5 1 cap PO DAILY BP 08/07/23 5 History mg-hydrochlorothiazide 25 mg capsule metoprolol tartrate 50 mg tablet 50 mg PO BID #180 tabs 10/31/23 Rx colestipol 1 gram tablet 1 g PO QDAY #60 tabs 04/03/24 Unkn own Rx Held on 05/30/24. Instructions: MD Ordered amitriptyline 150 mg tablet 150 mg PO QHS 04/30/24 06/03/24 Hi story furosemide 20 mg tablet 20 mg PO QDAY PRN edema 04/30/24 U nknown History hydroxychloroquine 200 mg tablet 200 mg PO BID 04/30/24 06/03/24 Hi story levothyroxine 200 mcg tablet 200 mcg PO QDAY 04/30/24 06/03/24 History amiodarone 200 mg tablet 200 mg PO DAILY #90 tabs 05/26/24 06/04/24 Rx warfarin 2 mg tablet 6 mg PO SUMOTUWESA 05/30/24 History warfarin 4 mg tablet 8 mg PO THFR 05/30/24 05/31/24 His tory Allergy/AdvReac Type Severity Reaction Status Date / Time adhesive tape Allergy Rash Verified 06/04/24 07:04 codeine Allergy Hives Verified 06/04/24 07:04 Opioids - Morphine Analogues Allergy Hives Verified 06/04/24 07:04 fosinopril (From Monopril) AdvReac severe Verified 06/04/24 07:04 cough Family History Brother Colon cancer Lung cancer Mother Hypertension Thyroid disorder Father Ulcer Lung cancer Surgical History Hx of colonoscopy History of bilateral cataract extraction History of cholecystectomy Hx of gastric bypass Encounter (more content not included)...[facility]04-16-[facility]25 Consult note [facility] Medical Records Department [address] [place] [address] Pre-Anesthesia Evaluation 06/04/24728 MR#: [id number] Acct: [id number] Name: IRIS BLUM Rep #:[id number] : 1950 73 From: Abdoulaye Camarillo MD PCP: Dr. David Chambers MD Status:REG S DC Y Race: C Location: [place] [address] ASA Classification* ASA Classification ASA Classification: 3 Assessment & Plan Anesthesia* Anesthesia Assessment Anesthesia Assessment: Discussed sedation and/or anesthesia options, risks, benefits, and alternatives with patient/parents/legal guardian/POA. Questions invited. The patient/parents/legal guardian/POA seems to understand and agrees to proceedwith anesthesia plan. Reviewed the physical assessment, medical history, allergy history and patient home medications list prior to surgery/procedure/anesthetic and documented any changes. Performed airway and anesthesia risk assessments. Anesthesia Type Anesthesia Type: MAC Anesthesia Focused Assessment* Temperature: 97.5 F Pulse Rate: 72 Blood Pressure: 128/61 Respiratory Rate: 18 Pulse Ox: 93 Airway Assessment Mouth opens: >3 cm Mallampati Score: II Focused Labs Anesthesia Preop lab: CBC WBC 5.9 K/mm3 (4.4-11.0) 04/23/24 11:20 04/23/24 RBC 4.75 M/mm3 (4.2-5.4) 04/23/24 11:20 04/23/24 Hgb 13.7 g/dL (12.0-15.0) 04/23/24 11:20 04/23/24 Hct 44.0 % (37-47) 04/23/24 11:20 04/23/24 Plt Count 250 K/mm3 (150-450) 04/23/24 11:20 04/23/24 CHEMISTRY Potassium 4.1 mmol/L (3.3-5.1) 05/22/24 11:45 05/22/24 Sodium 138 mmol/L (133-145) 05/22/24 11:45 05/22/24 Magnesium 1.9 mg/dL (1.6-2.6) 08/06/23 00:52 08/06/23 BUN 22 mg/dL (4-19) H 05/22/24 11:45 05/22/24 Creatinine 1.05 mg/dL (0.70-1.20) 05/22/24 11:45 05/22/24 Glucose 85 mg/dL (70-99) 05/22/24 11:45 05/22/24 TSH 3.930 uIU/mL (0.300-4.200) 05/22/24 11:45 04/0 05/13 COAG PT 25.2 SECONDS (11.7-14.9) H 05/22/24 11:46 04/0 05/13 INR 1.0 09/17/23 16:57 09/17/23 Pre-Assessment Diagnosis/Proposed Procedure Planned Operative Procedure(s): CSCOPE Anesthesia History Anesthesia History - logger 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 When Was Last Pacemaker Check QUESTION #4 FULL TEXT: You/Your Family Experience fever (hyperthermia) with Anesthesia Last Oral Intake Last Oral intake: Last Oral Intake NPO since 22:00 06/04/24 07:06 Meds taken in AM with sips of Yes 06/04/24 07:06 water? 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 - logger all round: PONV - logger all round Female Yes 05/30/24 13:26 HX of Motion Sickness No 05/30/24 13:26 HX of N/V After Surgery Yes 05/30/24 13:26 Non-Smoker Yes 05/30/24 13:26 Duration of Surgery greater No 05/30/24 13:26 than 60 minutes Number of Risk Factors 3 05/30/24 13:26 PONV Score Moderate Risk 05/30/24 13:26 Height & Weight Height & Weight: Anesthesia: Height & Weight Height 5 ft 3 in 06/04/24 07:06 Weight: 141 kg 06/04/24 07:06 Body Mass Index (BMI) 55.0 06/04/24 07:06 Respiratory Assessment Respiratory Assessment - logger all round: Respiratory Tract Infection Hx - logger all round Hx Respiratory Tract Infection No 05/30/24 13:26 STOP Sleep Apnea STOP Sleep Apnea - logger all round: STOP Sleep Apnea - logger all round Hx Hypertension Yes: CONTROLLED WITH MED 05/30/24 13:26 Hx Sleep Apnea Yes 05/30/24 13:26 CPAP Yes: NONCOMPLIANT 05/30/24 13:26 BIPAP No 05/30/24 13:26 Do you snore loudly (louder than talking or can be heard Do you often feel tired/ fatigued/ sleepy during daytime? Has anyone observed you stop breathing during sleep? STOP Results Positive 05/30/24 13:26 QUESTION #5 FULL TEXT : Do you snore loudly (louder than talking or can be heard through closeddoors)? 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 Specify any problems Hx of Preganancy in last 3 No 05/30/24 13:26 Months Nurse Filling Out Transfusion DSCHRIBER 05/30/24 13:26 & Questions: Date: 05/30/24 05/30/24 13:26 Time: 05/30/24 13:26 Patient unable to answer at this time (ie. confused, unrespo /Reproduction History /Reproductive History - logger all round: /Reproductive Hx- logger all round Hx Now No 05/30/24 13:26 Gestational Age (in weeks): EDC: Hx Hx Para Hx Section SAB No 05/30/24 13:26 PFS Medical History Falls Loss of hearing Wears glasses Wears dentures Wears partial dentures Cancer Post-menopausal Fibromyalgia Anxiety History of steroid therapy Thyroid disease Bladder disease Walker as ambulation aid Anemia High cholesterol Back pain Migraine headache History of ulceration History of IBS Non-smoker CPAP (continuous positive airway pressure) dependence Asthma Shortness of breath on exertion History of pain when walking History of edema History of echocardiogram History of stress test Cardiology follow-up encounter History of atrial fibrillation Contact with and (suspected) exposure to other viral communicable diseases History of DVT (deep vein thrombosis) SVT (supraventricular tachycardia) Essential hypertension Wound infection after surgery Depression Hypothyroidism Vitamin B12 deficiency Vitamin D deficiency Insomnia Allergic rhinitis GERD (gastroesophageal reflux disease) Morbid obesity Right rotator cuff tear Rheumatoid arthritis Home Medications ?Medication ?Instructions ?Recorded ?Last Taken ?Type fluticasone propionate 50 1 spray NASAL DAILY allergie s 11/29/15 Unknown History mcg/actuation nasal spray,suspension loperamide 2 mg capsule 2 mg PO DAILY PRN Diarrhea 1 01/26/17 05:00 History 2 MG pantoprazole 40 mg tablet,delayed 40 mg PO DAILY reflu x 11/29/15 06/03/24 History release albuterol sulfate 90 mcg/actuation 2 puff inhalation Q 6H PRN PRN 12/12/16 Unknown History aerosol inhaler Asthma duloxetine 60 mg capsule,delayed 60 mg PO DAILY mental health 12/12/16 06/03/24 History release adalimumab 40 mg/0.8 mL 40 mg subcut FR infection Unknown History subcutaneous syringe kit gabapentin 300 mg capsule 300 mg PO BID nerve pain 02/0806/03/24 History multivitamin 1 tab PO DAILY vitamin 09/3006/03/24 History prednisone 10 mg tablet 10 mg PO DAILY PRN RA flair 09/30/20 Unknown History montelukast 10 mg tablet 10 mg PO DAILY asthma 06/03/24 History solifenacin 10 mg tablet 10 mg PO DAILY rheumatiod 06/03/24 History tramadol 50 mg tablet 50 mg PO TID PRN PRN pain 06/03/24 History triamterene 37.5 1 cap PO DAILY BP 08/07/23 0 06/04/24 History mg-hydrochlorothiazide 25 mg capsule metoprolol tartrate 50 mg tablet 50 mg PO BID #180 tab s 10/31/23 06/04/24 Rx colestipol 1 gram tablet 1 g PO QDAY #60 tabs 5 Unknown Rx Held on 05/30/24. Instructions: MD Ordered amitriptyline 150 mg tablet 150 mg PO QHS 04/30/24 History furosemide 20 mg tablet 20 mg PO QDAY PRN edema 04/19 04/15 Unknown History hydroxychloroquine 200 mg tablet 200 mg PO BID 5 06/03/24 History levothyroxine 200 mcg tablet 200 mcg PO QDAY 04/30/24 06/03/24 History amiodarone 200 mg tablet 200 mg PO DAILY #90 tabs 09/1206/04/24 Rx warfarin 2 mg tablet 6 mg PO SUMOTUWESA 05/30/24 05/31/24 History warfarin 4 mg tablet 8 mg PO THFR 05/30/24 History Allergy/AdvReac Type Severity Reaction Status Date / Time adhesive tape Allergy Rash Verified 06/04/24 07:04 codeine Allergy Hives Verified 06/04/24 07:04 Opioids - Morphine Analogues Allergy Hives Verified 06/04/24 07:04 fosinopril (From Monopril) AdvReac severe Verified 06/04/24 07:04 cough Family History Brother Colon cancer Lung cancer Mother Hypertension Thyroid disorder Father Ulcer Lung cancer Surgical History Hx of colonoscopy History of bilateral cataract extraction History of cholecystectomy Hx of gastric bypass Encounter for incision and drainage procedure Status post reverse total replacement of right shoulder S/P rotator cuff repair H/O: hysterectomy Social History Smoking Status: Never smoker second hand exposure: No alcohol intake: never substance use type: does not use caffeine: Yes seatbelt use: always Review of Systems (Anesthesia) ROS Narrative System reviewed and no additional complaints, except as documented. 06/04/2429 > Date _ Abdoulaye Camarillo MD Cosigner Signature: Date CC: ~ Signed [facility]03-12-2025 Evaluation note* Diagnosis Onset Date Resolution Status Admit Date Atrial fibrillation acute April 30, 2024 10:53am Essential hypertension acute [facility] 2024 10:53am SVT (supraventricular tachycardia) acute April 30, 2024 10:53am Chronic diarrhea chronic June 042024 6:51am [facility] Work Phone: 1(503) 507-801702-13-2025 Evaluation note* Diagnosis Onset Date Resolution Status Admit Date Chronic diarrhea chronic April 03, 2024 1:11pm Atrial fibrillation acute April 30, 2024 10:53am Essential hypertension acute [facility] 2024 10:53am SVT (supraventricular tachycardia) acute April 30, 2024 10:53am [facility] Work Phone: 1(731) 363-195302-13-2025 Evaluation note* Diagnosis Onset Date Resolution Status Admit Date Chronic diarrhea chronic April 03, 2024 1:11pm Atrial fibrillation acute April 30, 2024 10:53am Essential hypertension acute [facility] 2024 10:53am SVT (supraventricular tachycardia) acute April 30, 2024 10:53am Chronic diarrhea chronic June 042024 6:51am [facility] Work Phone: 1(950) 340-126901-26-2024 Discharge summary Author Fatou Miller [facility] March 16, 2023 4:22pm Note Date/Time March 16, 2023 4 :22pm [facility] Physical Therapy [facility] [address] [place] [address] / REHABILITATION SERVICES DISCHARGE SUMMARY MR#: [id number] Acct: [id number] Name: IRIS BLUM Rep #: [id number] : 1950 72 From: Fatou Miller PT, Cert. MDT Referring Dr.: Dr. David Chambers MD Status: REG [facility] 12/20/17 SELF PAY INSURANCE Patient Information Patient Information: IRIS BLUM was seen in my office for initial evaluation on 03/15/23. The following Plan of Care was established for this patient: POC Established Initial Frequency: 1-2x /Week Initial Duration: 1-2 months Anticipated Interventions Patient/Client Instruction: Educate patient on: Condition, Plan of Care and Risk Factors For the Purpose of:: To improve self management Therapeutic Exercise to Include: Strength training, Balance training, Body mechanics, Postural training, Flexibilty training, Gait and locomotor training, Neuromotor development and Dynamic Lumbar Stabilization For the Purpose of:: To decrease pain, To improve muscle performance and motor function, To increase tolerance to activity/condition/position, To improve performance and independence with ADL's, To improve ability of physical actions for home/community/work/leisure, To improve gait and locomotor functions, To increase flexibility/ROM and To improve safety with gait Last Seen Last Seen: This patient was last seen in our office . Pertinent comments regarding their Physical therapy will appear below: This patient was seen for an initial physical therapy evaluation and then she apparently subsequently called and cancelled due to her co-pay being too expensive. At this point I will be discontinuing this patient from physical therapy. I would be happy to see this patient again in the future if found appropriate by the physician. Thank you! Fatou Miller PT, Cert MDT Balance/Gait/Functional tests Balance/Special Test Scores Lower Extremity Functional Score: 20 TUG Test Time Seconds: 35.79 Tug Test: >30sec.=impaired mobility 30 Second Chair Rise Test Seconds: 4 <Electronically signed by Fatou Miller PT Cert. MDT> 03/16/23 1622 CC: Dr. David Chambers MD ~ DESI Signed [facility] Work Phone: Consult note Author Michael Reardon [facility] Note Date/Time June 04, 2024 9:[address] [facility] Medical Records Department [address] [place] [address] Anesthesia Postop Eval I 06/04/2408 MR#: [id number] Acct: [id number] Name: IRIS BLUM Yesica Rep #:[id number] : 1950 73 From: Michael Reardon PCP: Dr. David Chambers MD Status:REG S DC Y Race: C Location: [place] [address] Anesthesia: Postop Eval I Current Vital Signs Temperature: 97 F Pulse Rate: 55 Blood Pressure: 101/67 Respiratory Rate: 16 Pulse Ox: 100 Oxygen Delivery Method: Room Air Assessment Airway patent: Yes Spontaneous unlabored respirations: Yes Mental status: Asleep nausea: No Vomiting: No Anesthesia Complication: No Fluid Hydration Crystalloid volume administer (ml): 55 Total IV fluid infused: 55 Progress Note Anesthesia document: Postop Eval 1 completed: Yes 06/04/24 0909 <Electronically signed by Michael Reardon > Date _ Michael Vaughanignmonie Signature: Date CC: ~ Signed [facility] Work Phone: Consult note Author Abdoulaye Camarillo [facility] Note Date/Time June 04, 2024 9:[address] [facility] Medical Records Department [address] [place] [address] Anesthesia Postop Eval II 06/04/24914 MR#: [id number] Acct: [id number] Name: IRIS BLUM Rep #:[id number] : 1950 73 From: Abdoulaye Camarillo MD PCP: Dr. David Chambers MD Status:REG S DC Y Race: C Location: [place] [address] Anesthesia Postop Eval I Sum Postop Eval Completion status Anesthesia document: Postop Eval 1 completed: Yes Anesthesia Postop Eval I Summary Anesthesia Postop Eval I Summary: Anesthesia Postop Eval I: Assessment Summary Airway patent Yes 06/04/24 09:09 [email or web address] Spontaneous unlabored Yes 06/04/24 09:09 [email or web address] respirations Mental status Asleep 06/04/24 09:09 [email or web address] nausea No 06/04/24 09:09 [email or web address] Vomiting No 06/04/24 09:09 [email or web address] Anesthesia Postop Eval I: Fluid Summary Crystalloid volume administer 55 06/04/24 09:09 [email or web address] (ml) Colloids volume administered ( ml) Blood Product volume administered (ml) Total IV fluid infused 55 06/04/24 09:09 [email or web address] Anesthesia Postop Eval I: Summary Notes Anesthesia Complication No 06/04/24 09:09 [email or web address] Anesthesia Complication Comment: Post-operative progress note Anesthesia: Postop Eval II Evaluation Mental status: Awake Pain Level: 0 nausea: No Vomiting: No 06/04/24914 <Electronically signed by Abdoulaye Camarillo MD > Date _ Abdoulaye Camarillo MD Cosigner Signature: Date CC: ~ Signed [facility] Work Phone: evaluation noteNo assessment information available [facility] Work Phone: evaluation note* Diagnosis Onset Date Resolution Status Asthma acute Morbid obesity acute EMMETT (obstructive sleep apnea) acute [facility] Work Phone: evaluation note* Diagnosis Onset Date Resolution Status Asthma acute Morbid obesity acute EMMETT (obstructive sleep apnea) acute Morbid obesity acute EMMETT (obstructive sleep apnea) acute Shortness of breath acute [facility] Work Phone: evaluation note* Diagnosis Onset Date Resolution Status Asthma acute Morbid obesity acute EMMETT (obstructive sleep apnea) acute Shortness of breath noneacti ve Morbid obesity acute EMMETT (obstructive sleep apnea) acute Shortness of breath acute Contact with and (suspected) exposure to other viral communicable diseases acute URI (upper respiratory infection) acute [facility] Work Phone: evaluation note* Diagnosis Onset Date Resolution Status Admit Date Left shoulder pain acute Septem 2024 10:58am Primary osteoarthritis, left shoulder acute November 10, 2024 10:58am [facility] Work Phone: Hospital Discharge instructionsAmbulatory Orders* Orthopedics Location: None Selected [facility] Work Phone: Progress note Author Armaan Guallpa [facility] Services Note Date/Time November 10, 2024 11:35am [facility] [address] [place] [address] OFFICE VISIT Date of Service: 11/10/24 MR#: [id number] Acct: [id number] Name: IRIS BLUM Rep #: [id number] : 1950 Provider: Dr. Tony Guallpa MD Age/Sex: 74/F Location: [facility] Status: Signed Intake Vital Signs 06/04/24 07:06 11/10/24 11:04 Height 5 ft 3 in 5 ft 3 in Weight: 307 lb BMI 54.3 Intake Visit Reasons: LEFT SHOULDER Chief Complaint: Left Shoulder Pain Is patient in pain?: Yes Pain scale (1-10): 8 Allergies adhesive tape Allergy (Verified 11/10/24 11:05) Rash codeine Allergy (Verified 11/10/24 11:05) Hives Opioids - Morphine Analogues Allergy (Verified 11/10/24 11:05) Hives fosinopril (From Monopril) Adverse Reaction (Verified 11/10/24 11:05) severe cough Medications ?Medication ?Instructions ?Recorded ?Confirmed ?Type fluticasone propionate 50 1 spray NASAL DAILY allergie s 11/29/15 11/10/24 History mcg/actuation nasal spray,suspension loperamide 2 mg capsule 2 mg PO DAILY PRN Diarrhea 1 11/10/24 History pantoprazole 40 mg tablet,delayed 40 mg PO DAILY reflu x 11/29/15 11/10/24 History release albuterol sulfate 90 mcg/actuation 2 puff inhalation Q 6H PRN PRN 12/12/16 11/10/24 History aerosol inhaler Asthma duloxetine 60 mg capsule,delayed 60 mg PO DAILY mental health 12/12/16 11/10/24 History release adalimumab 40 mg/0.8 mL 40 mg subcut FR infection 11/10/24 History subcutaneous syringe kit gabapentin 300 mg capsule 300 mg PO BID nerve pain 02/0811/10/24 History multivitamin 1 tab PO DAILY vitamin 09/3011/10/24 History prednisone 10 mg tablet 10 mg PO DAILY PRN RA flair 09/30/20 11/10/24 History montelukast 10 mg tablet 10 mg PO DAILY asthma 11/10/24 History solifenacin 10 mg tablet 10 mg PO DAILY rheumatiod 11/10/24 History tramadol 50 mg tablet 50 mg PO TID PRN PRN pain 11/10/24 History triamterene 37.5 1 cap PO DAILY BP 08/07/23 0 11/10/24 History mg-hydrochlorothiazide 25 mg capsule amitriptyline 150 mg tablet 150 mg PO QHS 04/30/24 History furosemide 20 mg tablet 20 mg PO QDAY PRN edema 04/1911/10/24 History hydroxychloroquine 200 mg tablet 200 mg PO BID 5 11/10/24 History levothyroxine 200 mcg tablet 200 mcg PO QDAY 04/30/24 11/10/24 History amiodarone 200 mg tablet 200 mg PO DAILY #90 tabs 09/1211/10/24 Rx warfarin 2 mg tablet 6 mg PO SUMOTUWESA 05/30/24 11/10/24 History warfarin 4 mg tablet 8 mg PO THFR 05/30/24 History metoprolol tartrate 50 mg tablet 50 mg PO BID #180 tab s 08/07/24 11/10/24 Rx semaglutide 0.25 mg or 0.5 mg (2 0.25 mg subcut QWEEK 11/10/24 11/10/24 History mg/1.5 mL) subcutaneous pen injector (Ozempic) Have you fallen in the past year?: Yes (4 times) [facility] Medical History (Updated 11/10/24 @ 11:52 by Armaan Guallpa MD) Primary osteoarthritis, left shoulder Left shoulder pain Falls Loss of hearing Wears glasses Wears dentures Wears partial dentures Cancer Post-menopausal Fibromyalgia Anxiety History of steroid therapy Thyroid disease Bladder disease Walker as ambulation aid Anemia High cholesterol Back pain Migraine headache History of ulceration History of IBS Non-smoker CPAP (continuous positive airway pressure) dependence Asthma Shortness of breath on exertion History of pain when walking History of edema History of echocardiogram History of stress test Cardiology follow-up encounter History of atrial fibrillation Contact with and (suspected) exposure to other viral communicable diseases History of DVT (deep vein thrombosis) SVT (supraventricular tachycardia) Essential hypertension Wound infection after surgery Depression Hypothyroidism Vitamin B12 deficiency Vitamin D deficiency Insomnia Allergic rhinitis GERD (gastroesophageal reflux disease) Morbid obesity Right rotator cuff tear Rheumatoid arthritis Surgical History Hx of colonoscopy History of bilateral cataract extraction History of cholecystectomy Hx of gastric bypass Encounter for incision and drainage procedure Status post reverse total replacement of right shoulder S/P rotator cuff repair H/O: hysterectomy Family History Brother Colon cancer Lung cancer Mother Hypertension Thyroid disorder Father Ulcer Lung cancer Social History Smoking Status: Never smoker second hand exposure: No alcohol intake: never substance use type: does not use caffeine: Yes seatbelt use: always HPI LEFT SHOULDER Details: This documentation accurately reflects the service provided and the decisions made by me, Dr. Armaan Guallpa MD 11/10/24 5899. Part of today?s visit was documented by [ ], acting as scribe. IRIS BLUM is a 74 year old F here today for L shoulder pain. 2nd opinion. Considering RTSA but high risk due to obesity, HTN, and prior wound healing complications. RA, gastric bypass. On immune supressant meds. Had a prior infected R RTSA, with washout. Has anterior pain, 6-7 at worse, night pain, pain at rest. RHD. Tried 3 injections, only 1 worked. Does not see pain managament. Supplemental Info L shoulder XR - advanced OA of the shoulder 10/24/24 Coding Level of Care Code Off vis,new,level 4 Diagnoses Left shoulder pain M25.512 Primary osteoarthritis, left shoulder M19.012 Assessment and Plan Assessment and Plan (1) Left shoulder pain: Status: Acute Plan: IRIS BLUM is a 74 year old F here today for L shoulder pain. 2nd opinion. Patient has advanced joint degenerative changes of the left shoulder. Can try continue conservative management if the patient is desiring surgery thiswould be in the form of a reverse total shoulder arthroplasty. Clearly given the patient's medical risks obesity rheumatoid arthritis to immunocompromise state prior infection on the other side the patient would be at high risk both medical complications as well as complications related to the arthroplasty high rate of loosening due to the rheumatoid arthritis as well as high rate of infection and wound healing complications the patient has had many types of wound healing complications including prior infected reverse total shoulder arthroplasty and wound healing complications related to prior skin excision. This would be best done and managed at a higher level center than our [facility] so therefore go ahead make referral to my colleague at the [facility] Dr. [place]iro. (2) Primary osteoarthritis, left shoulder: Status: Acute Clinical Quality Measures Falls Risk Screening/Assistive Devices Have you fallen in the past year?: Yes (4 times) Ortho Exam General General: Yes no acute distress Neurologic: Yes alert and Yes oriented x3 Psychologic: Yes reasonable and appropriate Left Shoulder Skin/Wound: Yes CDI, No ecchymosis, No erythema and No swelling Testing: No Hawkin's, No Neer's, No Speed's, No TTP Biceps, No TTP AC Joint, No empty can, No scapular winging and Yes belly press normal SHOULDER: normal motor and sens to axillary N, MRU and AIN/PIN. Hand warm well perfused normal radial pulse active FE 140, passive 150, ER 45. mild crepitus. strength 4+ in FE and ER> 11/10/24 1153 <Electronically signed by Armaan rodriguez MD> Date _ Armaan Guallpa MD Cosign Signature: Date (if applicable) CC: ~ [facility] Work Phone: Reason for referral (narrative)No reason for referral information [facility] Work Phone: Summary Purpose Family History No Family History Records Found Relationship Condition Age at Onset Recorded Date/T herve brother Malignant neoplasm of colon Unknown Malignant neoplasm of lung Unknown mother Hypertension Unknown Disorder of thyroid Unknown father Ulcerative lesion Unknown Advance Directives No Advanced Directives Records Found Advance Directive Response Recorded Date/ Time Advance Directives Yes December 5:40pm Living Will No July 09, 2020 1 2:10pm Power of Automobile Accessories Installer No July 09, 2020 12:10pm Advance Directive Response Recorded Date/ Time Advance Directives Yes December 4:40pm Living Will No July 09, 2020 1 1:10am Power of Automobile Accessories Installer No July 09, 2020 11:10am Advance Directive Response Recorded Date/ Time Living Will Yes August 06, 2023 3:12am Power of Automobile Accessories Installer Yes August 05 3:12am Living Will Yes February 19 6:13am Power of Automobile Accessories Installer Yes February 19, 6:13am Living Will Yes March 22 3:21am Power of Automobile Accessories Installer Yes March 22, 2024 3:21am Living Will Yes January 19 3:24am Power of Automobile Accessories Installer Yes January 20, 2024 3:24am Living Will Yes April 19, 2024 8:36am Power of Automobile Accessories Installer Yes April 19 8:36am Advance Directives Yes December 5:40pm Advance Directive Response Recorded Date/ Time Living Will Yes August 06, 2023 3:12am Do you have a Healthcare Power of Automobile Accessories Installer? Yes August 06, 2023 3:12am Living Will Yes February 19 6:13am Do you have a Healthcare Power of Automobile Accessories Installer? Yes February 20, 2024 6:13am Living Will Yes March 22 3:21am Do you have a Healthcare Power of Automobile Accessories Installer? Yes March 22, 2024 3:21am Living Will Yes January 19 3:24am Do you have a Healthcare Power of Automobile Accessories Installer? Yes January 20, 2024 3:24am Living Will Yes April 19, 2024 8:36am Do you have a Healthcare Power of Automobile Accessories Installer? Yes April 19, 2024 8:36am Advance Directives Yes December 5:40pm Advance Directive Response Recorded Date/ Time Living Will Yes August 06, 2023 3:12am Do you have a Healthcare Power of Automobile Accessories Installer? Yes August 06, 2023 3:12am Living Will Yes February 19 6:13am Do you have a Healthcare Power of Automobile Accessories Installer? Yes February 20, 2024 6:13am Living Will Yes March 22 3:21am Do you have a Healthcare Power of Automobile Accessories Installer? Yes March 22, 2024 3:21am Living Will Yes January 19 3:24am Do you have a Healthcare Power of Automobile Accessories Installer? Yes January 20, 2024 3:24am Living Will Yes May 30, 2024 1:26pm Do you have a Healthcare Power of Automobile Accessories Installer? Yes May 30, 2024 1:26pm Name of Medical Power of Automobile Accessories Installer MARLO May 30, 2024 1:26pm Living Will Yes April 19, 2024 8:36am Do you have a Healthcare Power of Automobile Accessories Installer? Yes April 19, 2024 8:36am Advance Directives Yes December 5:40pm Advance Directive Response Recorded Date/ Time Living Will Yes August 06, 2023 3:12am Do you have a Healthcare Power of Automobile Accessories Installer? Yes August 06, 2023 3:12am Living Will Yes March 22 3:21am Do you have a Healthcare Power of Automobile Accessories Installer? Yes March 22, 2024 3:21am Living Will Yes May 19, 2024 11:17pm Do you have a Healthcare Power of Automobile Accessories Installer? Yes May 19, 2024 11:17pm Living Will Yes May 30, 2024 1:26pm Do you have a Healthcare Power of Automobile Accessories Installer? Yes May 30, 2024 1:26pm Name of Medical Power of Automobile Accessories Installer MARLO May 30, 2024 1:26pm Living Will Yes April 19, 2024 8:36am Do you have a Healthcare Power of Automobile Accessories Installer? Yes April 19, 2024 8:36am Living Will Yes June 18, 2024 11:08pm Do you have a Healthcare Power of Automobile Accessories Installer? Yes June 18, 2024 11:08pm Advance Directives Yes December 5:40pm Advance Directive Response Recorded Date/ Time Living Will Yes August 06, 2023 3:12am Do you have a Healthcare Power of Automobile Accessories Installer? Yes August 06, 2023 3:12am Living Will Yes May 19, 2024 11:17pm Do you have a Healthcare Power of Automobile Accessories Installer? Yes May 19, 2024 11:17pm Living Will Yes May 30, 2024 1:26pm Do you have a Healthcare Power of Automobile Accessories Installer? Yes May 30, 2024 1:26pm Name of Medical Power of Automobile Accessories Installer MARLO May 30, 2024 1:26pm Living Will Yes April 19, 2024 8:36am Do you have a Healthcare Power of Automobile Accessories Installer? Yes April 19, 2024 8:36am Living Will Yes June 18, 2024 11:08pm Do you have a Healthcare Power of Automobile Accessories Installer? Yes June 18, 2024 11:08pm Living Will Yes July 20, 2024 7 :18pm Do you have a Healthcare Power of Automobile Accessories Installer? Yes July 20, 2024 7:18pm Advance Directives Yes December 5:40pm Advance Directive Response Recorded Date/ Time Living Will Yes May 19, 2024 11:17pm Do you have a Healthcare Power of Automobile Accessories Installer? Yes May 19, 2024 11:17pm Living Will Yes May 30, 2024 1:26pm Do you have a Healthcare Power of Automobile Accessories Installer? Yes May 30, 2024 1:26pm Name of Medical Power of Automobile Accessories Installer MARLO May 30, 2024 1:26pm Living Will Yes June 18, 2024 11:08pm Do you have a Healthcare Power of Automobile Accessories Installer? Yes June 18, 2024 11:08pm Living Will Yes July 20, 2024 7 :18pm Do you have a Healthcare Power of Automobile Accessories Installer? Yes July 20, 2024 7:18pm Advance Directives Yes December 5:40pm Advance Directive Response Recorded Date/ Time Living Will Yes May 19, 2024 11:17pm Do you have a Healthcare Power of Automobile Accessories Installer? Yes May 19, 2024 11:17pm Living Will Yes June 18, 2024 11:08pm Do you have a Healthcare Power of Automobile Accessories Installer? Yes June 18, 2024 11:08pm Living Will Yes July 20, 2024 7 :18pm Do you have a Healthcare Power of Automobile Accessories Installer? Yes July 20, 2024 7:18pm Advance Directives Yes December 5:40pm Advance Directive Response Recorded Date/ Time Living Will Yes June 18, 2024 11:08pm Do you have a Healthcare Power of Automobile Accessories Installer? Yes June 18, 2024 11:08pm Living Will Yes July 20, 2024 7 :18pm Do you have a Healthcare Power of Automobile Accessories Installer? Yes July 20, 2024 7:18pm Advance Directives Yes December 5:40pm Advance Directive Response Recorded Date/ Time Living Will Yes July 20, 2024 7 :18pm Do you have a Healthcare Power of Automobile Accessories Installer? Yes July 20, 2024 7:18pm Advance Directives Yes December 5:40pm Chief Complaint and Reason for Visit Chief Complaint ARTHRITIS/PAIN- COPY PCP RIGHT HIP PAIN- FALL Chief Complaint RIGHT HIP PAIN- FALL Shortness of breath SOB Shortness of breath SOB Shortness of breath Reason for Visit Asthma Morbid obesity EMMETT (obstructive sleep apnea) Chief Complaint RIGHT HIP PAIN- FALL Shortness of breath SOB Shortness of breath SOB Shortness of breath 1 M FU PULMONARY FIBROSIS Reason for Visit Asthma Morbid obesity EMMETT (obstructive sleep apnea) Morbid obesity EMMETT (obstructive sleep apnea) Shortness of breath Chief Complaint RIGHT HIP PAIN- FALL Shortness of breath SOB Shortness of breath SOB Shortness of breath 1 M FU PULMONARY FIBROSIS EMMETT; 5/30 ANS Reason for Visit Asthma Morbid obesity EMMETT (obstructive sleep apnea) Morbid obesity EMMETT (obstructive sleep apnea) Shortness of breath Chief Complaint Shortness of breath SOB Shortness of breath SOB Shortness of breath 1 M FU PULMONARY FIBROSIS EMMETT; 5/30 ANS COVID SYMPTOMS/ TEST Reason for Visit Asthma Morbid obesity EMMETT (obstructive sleep apnea) Shortness of breath Morbid obesity EMMETT (obstructive sleep apnea) Shortness of breath Contact with and (suspected) exposure to other viral communicable diseases URI (upper respiratory infection) Chief Complaint SCREENING Chief Complaint HIP PAIN RX HERE Chief Complaint HIP PAIN RX HERE PAIN- COPY PCP Chief Complaint Admit Date S/O- INR February 15, 2024 1:23pm S/O- INR March 14, 2024 1 :23pm Pre Colon April 03, 2024 1:11pm S/O- INR April 17, 2024 1:02pm PAIN- COPY PCP April 23, 2024 11:1 7am 6 M FU April 30, 2024 10: 53am S/O- INR April 30, 2024 12: 25pm Reason for Visit Admit Date Chronic diarrhea April 03, 2024 1:11pm Atrial fibrillation April 30, 2024 10: 53am Essential hypertension April 30, 2024 10:53am SVT (supraventricular tachycardia) April 30, 2024 10:53am Chief Complaint Admit Date S/O- INR February 15, 2024 1:23pm S/O- INR March 14, 2024 1 :23pm Pre Colon April 03, 2024 1:11pm S/O- INR April 17, 2024 1:02pm PAIN- COPY PCP April 23, 2024 11:1 7am 6 M FU April 30, 2024 10: 53am S/O- INR May 15, 2024 3:4 7pm Reason for Visit Admit Date Chronic diarrhea April 03, 2024 1:11pm Atrial fibrillation April 30, 2024 10: 53am Essential hypertension April 30, 2024 10:53am SVT (supraventricular tachycardia) April 30, 2024 10:53am Chronic diarrhea Susan 16th, 2025 6:5 1am Chief Complaint Admit Date Pre Colon April 03, 2024 1:11pm S/O- INR April 17, 2024 1:02pm PAIN- COPY PCP April 23, 2024 11:1 7am 6 M FU April 30, 2024 10: 53am S/O- INR May 15, 2024 3:4 7pm S/O- INR June 12, 2024 4:0 4pm S/O- INR July 10, 2024 10:55 am Chief Complaint Admit Date PAIN- COPY PCP April 23, 2024 11:1 7am 6 M FU April 30, 2024 10: 53am S/O- INR May 15, 2024 3:4 7pm S/O- INR June 12, 2024 4:0 4pm S/O- INR July 10, 2024 10:55 am S/O-INR- COPY PCP August 06, 2024 1:51 pm Reason for Visit Admit Date Atrial fibrillation April 30, 2024 10: 53am Essential hypertension April 30, 2024 10:53am SVT (supraventricular tachycardia) April 30, 2024 10:53am Chronic diarrhea June 04, 2024 6:5 1am Chief Complaint Admit Date S/O- INR June 12, 2024 4:0 4pm S/O- INR July 10, 2024 10:55 am S/O-INR- COPY PCP August 06, 2024 1:51 pm SCREENING September 17, 2024 8:30 am S/O-INR- COPY PCP September 17, 2024 9:42 am Reason for Visit Admit Date Chronic diarrhea June 04, 2024 6:5 1am Chief Complaint Admit Date S/O- INR June 12, 2024 4:0 4pm S/O- INR July 10, 2024 10:55 am S/O-INR- COPY PCP August 06, 2024 1:51 pm SCREENING September 17, 2024 8:30 am S/O-INR- COPY PCP September 17, 2024 9:42 am S/O-INR- COPY PCP September 30, 2024 10 :48am Chief Complaint Admit Date S/O- INR July 10, 2024 10:55 am S/O-INR- COPY PCP August 06, 2024 1:51 pm SCREENING September 17, 2024 8:30 am S/O-INR- COPY PCP September 17, 2024 9:42 am S/O-INR- COPY PCP October 09, 2024 10 :51am Chief Complaint Admit Date S/O- INR July 10, 2024 10:55 am S/O-INR- COPY PCP August 06, 2024 1:51 pm SCREENING September 17, 2024 8:30 am S/O-INR- COPY PCP September 17, 2024 9:42 am S/O-INR- COPY PCP October 09, 2024 10 :51am S/O-INR- COPY PCP October 22, 2024 11:25am RIGHT LEG PAIN October 22, 2024 12:51pm Chief Complaint Admit Date S/O-INR- COPY PCP August 06, 2024 1:51 pm SCREENING September 17, 2024 8:30 am S/O-INR- COPY PCP September 17, 2024 9:42 am S/O-INR- COPY PCP October 09, 2024 10 :51am RIGHT LEG PAIN October 22, 2024 12:51pm S/O-INR- COPY PCP November 07, 2024 1:36pm LEFT SHOULDER November 10, 2024 10:58am Reason for Visit Admit Date Left shoulder pain November 10, 2024 10:58am Primary osteoarthritis, left shoulder Se ptember 2024 10:58am Chief Complaint Admit Date S/O-INR- COPY PCP August 06, 2024 1:51 pm SCREENING September 17, 2024 8:30 am S/O-INR- COPY PCP September 17, 2024 9:42 am S/O-INR- COPY PCP October 09, 2024 10 :51am RIGHT LEG PAIN October 22, 2024 12:51pm S/O-INR- COPY PCP November 07, 2024 1:36pm LEFT SHOULDER November 10, 2024 10:58am S/O-INR- COPY PCP November 19, 2024 1: 49pm Additional Source Comments INFORMATION SOURCE (unrecogn ized section and content) DATE CREATED AUTHOR 01/02/2019 [facility] DATE CREATED AUTHOR AUTHOR'S ORGANIZ ATION 01/10/2019 [facility] DATE CREATED AUTHOR AUTHOR'S ORGANIZ ATION 11/17/2020 [facility] ([place]) DATE CREATED AUTHOR AUTHOR'S ORGANIZ ATION 01/02/2025 [facility] Goals (unrecognized section and content) Goals may be documented in a n alternate sectionGoals may be documented in an alternate sectionGoals may be documented in an alternate sectionGoals may be documented in an alternate sectionGoals may be documented in an alternate sectionGoals may be documented in an alternate sectionGoals may be documented in an alternate sectionGoals may be documented in an alternate sectionGoals may be documented in an alternate sectionGoals may be documented in an alternate sectionGoals may be documented in an alternate sectionGoals may be documented in an alternate sectionGoals may be documented in an alternate sectionGoals may be documented in an alternate sectionGoals may be documented in an alternate sectionGoals may be documented in an alternate sectionGoals may be documented in an alternate sectionGoals may be documented in an alternate sectionGoals may be documented in an alternate sectionGoals may be documented in an alternate sectionGoals may be documented in an alternate sectionGoals may be documented in an alternate sectionGoals may be documented in an alternate sectionGoals may be documented in an alternate sectionGoals may be documented in an alternate section Care Teams (unrecognized sec tion and content) Team Status: Active Member Role Status Dates Dr. David Chambers MD Family Provider Active Dr. David Chambers MD Primary Care Provider Active Team Status: Inactive Member Role Status Dates Dr. David Chambers MD Primary Care Provider Active ROBERT Fernandez Attending Provider Active Team Status: Inactive Member Role Status Dates Dr. David Chambers MD Primary Care Provi isaiah, Attending Provider, Referring Provider Active Team Status: Inactive Member Role Status Dates Dr. David Chambers MD Primary Care Provider Active Dr. Dinah Fernandez MD Attending Provider Active Team Status: Inactive Member Role Status Dates Dr. David Chambers MD Primary Care Provider Active Anushka Alvarez DO Attending Provider, Referring Pr ovider Active Team Status: Inactive Member Role Status Dates Dr. David Chambers MD Primary Care Provider, Attending Provider Active Team Status: Inactive Member Role Status Dates Dr. David Chambers MD Primary Care Provider Active Dr. Dinah Fernandez MD Attending Provider, Referring Provider Active Team Status: Active Member Role Status Dates Dr. David Chambers MD Primary Care Provider Active Team Status: Inactive Member Role Status Dates Dr. David Chambers MD Primary Care Provider Active Start: January 09, 2024 End: January 09, 2024 Dr. David Chambers MD Attending Provider Active Start: January 09, 2024 End: January 09, 2024 Team Status: Inactive Member Role Status Dates Dr. David Chambers MD Primary Care Provider Active Start: January 23, 2024 End: January 23, 2024 Dr. David Chambers MD Attending Provider Active Start: January 23, 2024 End: January 23, 2024 Dr. David Chambers MD Referring Provider Active Start: January 23, 2024 End: January 23, 2024 Team Status: Inactive Member Role Status Dates Dr. David Chambers MD Primary Care Provider Active Start: February 15, 2024 End: February 15, 2024 Lissette Griffin CUSTOMER RELATIONS CONSULTANT, CUSTOMER RELATIONS CONSULTANT-C Attending Provider Active Start: February 15, 2024 End: February 15, 2024 Lissette Griffin CUSTOMER RELATIONS CONSULTANT, CUSTOMER RELATIONS CONSULTANT-C Referring Provider Active Start: February 15, 2024 End: February 15, 2024 Team Status: Inactive Member Role Status Dates Dr. David Chambers MD Primary Care Provider Active Start: March 14, 2024 End: March 14, 2024 Lissette Griffin CUSTOMER RELATIONS CONSULTANT, CUSTOMER RELATIONS CONSULTANT-C Attending Provider Active Start: March 14, 2024 End: March 14, 2024 Lissette Griffin CUSTOMER RELATIONS CONSULTANT, CUSTOMER RELATIONS CONSULTANT-C Referring Provider Active Start: March 14, 2024 End: March 14, 2024 Team Status: Inactive Member Role Status Dates Dr. David Chambers MD Primary Care Provider Active Start: April 03, 2024 End: April 03, 2024 Dr. David Chambers MD Referring Provider Active Start: April 03, 2024 End: April 03, 2024 EZEQUIEL Field Attending Provider Active Start: April 03, 2024 End: April 03, 2024 Team Status: Inactive Member Role Status Dates Dr. David Chambers MD Primary Care Provider Active Start: April 17, 2024 End: April 18, 2024 Lissette Griffin CUSTOMER RELATIONS CONSULTANT, CUSTOMER RELATIONS CONSULTANT-C Attending Provider Active Start: April 17, 2024 End: April 18, 2024 Lissette Griffin CUSTOMER RELATIONS CONSULTANT, CUSTOMER RELATIONS CONSULTANT-C Referring Provider Active Start: April 17, 2024 End: April 18, 2024 Team Status: Inactive Member Role Status Dates Dr. David Chambers MD Primary Care Provider Active Start: April 23, 2024 End: April 23, 2024 Dr. Dinah Fernandez MD Attending Provider Active Start: April 23, 2024 End: April 23, 2024 Dr. Dinah Fernandez MD Referring Provider Active Start: April 23, 2024 End: April 23, 2024 Team Status: Inactive Member Role Status Dates Dr. David Chambers MD Primary Care Provider Active Start: April 30, 2024 End: April 30, 2024 Dr. David Chambers MD Referring Provider Active Start: April 30, 2024 End: April 30, 2024 Matt Perez CUSTOMER RELATIONS CONSULTANT, CUSTOMER RELATIONS CONSULTANT-C Attending Provider Active S tart: April 30, 2024 End: April 30, 2024 Team Status: Active Member Role Status Dates Dr. David Chambers MD Primary Care Provider Active Start: April 30, 2024 Lissette Griffin CUSTOMER RELATIONS CONSULTANT, CUSTOMER RELATIONS CONSULTANT-C Attending Provider Active Start: April 30, 2024 Lissette Griffin CUSTOMER RELATIONS CONSULTANT, CUSTOMER RELATIONS CONSULTANT-C Referring Provider Active Start: April 30, 2024 Team Status: Inactive Member Role Status Dates Dr. David Chambers MD Primary Care Provider Active Start: May 15, 2024 End: May 15, 2024 Lissette Griffin CUSTOMER RELATIONS CONSULTANT, CUSTOMER RELATIONS CONSULTANT-C Attending Provider Active Start: May 15, 2024 End: May 15, 2024 Lissette Griffin CUSTOMER RELATIONS CONSULTANT, CUSTOMER RELATIONS CONSULTANT-C Referring Provider Active Start: May 15, 2024 End: May 15, 2024 Team Status: Inactive Member Role Status Dates Dr. David Chambers MD Primary Care Provider Active Start: May 22, 2024 End: May 22, 2024 Dr. David Chambers MD Attending Provider Active Start: May 22, 2024 End: May 22, 2024 Dr. David Chambers MD Referring Provider Active Start: May 22, 2024 End: May 22, 2024 Team Status: Inactive Member Role Status Dates Dr. David Chambers MD Primary Care Provider Active Start: June 04, 2024 End: June 04, 2024 Dr. David Chambers MD Referring Provider Active Start: June 04, 2024 End: June 04, 2024 Dr. Guille Perez DO Attending Provider Active Start: June 04, 2024 End: June 04, 2024 Team Status: Active Member Role Status Dates Dr. David Chambers MD Primary Care Provider Active Start: June 04, 2024 Dr. David Chambers MD Referring Provider Active Start: June 04, 2024 Dr. Guille Perez DO Attending Provider Active Start: June 04, 2024 Dr. Guille Perez DO Other Provider Active St art: June 04, 2024 Team Status: Inactive Member Role Status Dates Dr. David Chambers MD Primary Care Provider Active Start: June 12, 2024 End: June 18, 2024 Lissette Griffin CUSTOMER RELATIONS CONSULTANT, CUSTOMER RELATIONS CONSULTANT-C Attending Provider Active Start: June 12, 2024 End: June 18, 2024 Lissette Griffin CUSTOMER RELATIONS CONSULTANT, CUSTOMER RELATIONS CONSULTANT-C Referring Provider Active Start: June 12, 2024 End: June 18, 2024 Team Status: Inactive Member Role Status Dates Dr. David Chambers MD Primary Care Provider Active Start: July 10, 2024 End: July 10, 2024 Lissette Griffin CUSTOMER RELATIONS CONSULTANT, CUSTOMER RELATIONS CONSULTANT-C Attending Provider Active Start: July 10, 2024 End: July 10, 2024 Lissette Griffin CUSTOMER RELATIONS CONSULTANT, CUSTOMER RELATIONS CONSULTANT-C Referring Provider Active Start: July 10, 2024 End: July 10, 2024 Team Status: Active Member Role/Relationship Status Dates Dr. David Chambers MD Primary Care Provider Active Team Status: Inactive Member Role/Relationship Status Dates Dr. David Chambers MD Primary Care Provider Active Start: April 23, 2024 End: April 23, 2024 Dr. Dianh Fernandez MD Attending Provider Active Start: April 23, 2024 End: April 23, 2024 Dr. Dinah Fernandez MD Referring Provider Active Start: April 23, 2024 End: April 23, 2024 Team Status: Inactive Member Role/Relationship Status Dates Dr. David Chambers MD Primary Care Provider Active Start: April 30, 2024 End: April 30, 2024 Dr. David Chambers MD Referring Provider Active Start: April 30, 2024 End: April 30, 2024 Matt Perez CUSTOMER RELATIONS CONSULTANT, CUSTOMER RELATIONS CONSULTANT-C Attending Provider Active S tart: April 30, 2024 End: April 30, 2024 Team Status: Inactive Member Role/Relationship Status Dates Dr. David Chambers MD Primary Care Provider Active Start: May 15, 2024 End: May 15, 2024 Lissette Griffin CUSTOMER RELATIONS CONSULTANT, CUSTOMER RELATIONS CONSULTANT-C Attending Provider Active Start: May 15, 2024 End: May 15, 2024 Lissette Griffin CUSTOMER RELATIONS CONSULTANT, CUSTOMER RELATIONS CONSULTANT-C Referring Provider Active Start: May 15, 2024 End: May 15, 2024 Team Status: Inactive Member Role/Relationship Status Dates Dr. David Chambers MD Primary Care Provider Active Start: May 22, 2024 End: May 22, 2024 Dr. David Chambers MD Attending Provider Active Start: May 22, 2024 End: May 22, 2024 Dr. David Chambers MD Referring Provider Active Start: May 22, 2024 End: May 22, 2024 Team Status: Inactive Member Role/Relationship Status Dates Dr. David Chambers MD Primary Care Provider Active Start: June 04, 2024 End: June 04, 2024 Dr. David Chambers MD Referring Provider Active Start: June 04, 2024 End: June 04, 2024 Dr. Guille Perez DO Attending Provider Active Start: June 04, 2024 End: June 04, 2024 Team Status: Active Member Role/Relationship Status Dates Dr. David Chambers MD Primary Care Provider Active Start: June 04, 2024 Dr. David Chambers MD Referring Provider Active Start: June 04, 2024 Dr. Guille Perez DO Attending Provider Active Start: June 04, 2024 Dr. Guille Perez DO Other Provider Active St art: June 04, 2024 Team Status: Inactive Member Role/Relationship Status Dates Dr. David Chambers MD Primary Care Provider Active Start: June 12, 2024 End: June 18, 2024 Lissette Griffin CUSTOMER RELATIONS CONSULTANT, CUSTOMER RELATIONS CONSULTANT-C Attending Provider Active Start: June 12, 2024 End: June 18, 2024 Lissette Griffin CUSTOMER RELATIONS CONSULTANT, CUSTOMER RELATIONS CONSULTANT-C Referring Provider Active Start: June 12, 2024 End: June 18, 2024 Team Status: Inactive Member Role/Relationship Status Dates Dr. David Chambers MD Primary Care Provider Active Start: July 10, 2024 End: July 10, 2024 Lissette Griffin CUSTOMER RELATIONS CONSULTANT, CUSTOMER RELATIONS CONSULTANT-C Attending Provider Active Start: July 10, 2024 End: July 10, 2024 Lissette Griffin CUSTOMER RELATIONS CONSULTANT, CUSTOMER RELATIONS CONSULTANT-C Referring Provider Active Start: July 10, 2024 End: July 10, 2024 Team Status: Inactive Member Role/Relationship Status Dates Dr. David Chambers MD Primary Care Provider Active Start: August 06, 2024 End: August 06, 2024 Dr. David Chambers MD Other Provider Active Star t: August 06, 2024 End: August 06, 2024 Lissette Griffin CUSTOMER RELATIONS CONSULTANT, CUSTOMER RELATIONS CONSULTANT-C Attending Provider Active Start: August 06, 2024 End: August 06, 2024 Lissette Griffin CUSTOMER RELATIONS CONSULTANT, CUSTOMER RELATIONS CONSULTANT-C Referring Provider Active Start: August 06, 2024 End: August 06, 2024 Team Status: Inactive Member Role/Relationship Status Dates Dr. David Chambers MD Primary Care Provider Active Start: May 22, 2024 End: May 22, 2024 Dr. David Chambers MD Attending Provider Active Start: May 22, 2024 End: May 22, 2024 Dr. David Chambers MD Referring Provider Active Start: May 22, 2024 End: May 22, 2024 Team Status: Inactive Member Role/Relationship Status Dates Dr. David Chambers MD Primary Care Provider Active Start: June 04, 2024 End: June 04, 2024 Dr. David Chambers MD Referring Provider Active Start: June 04, 2024 End: June 04, 2024 Dr. Guille Perez DO Attending Provider Active Start: June 04, 2024 End: June 04, 2024 Team Status: Active Member Role/Relationship Status Dates Dr. David Chambers MD Primary Care Provider Active Start: June 04, 2024 Dr. David Chambers MD Referring Provider Active Start: June 04, 2024 Dr. Guille Perez DO Attending Provider Active Start: June 04, 2024 Dr. Guille Perez DO Other Provider Active St art: June 04, 2024 Team Status: Inactive Member Role/Relationship Status Dates Dr. David Chambers MD Primary Care Provider Active Start: June 12, 2024 End: June 18, 2024 Lissette Griffin CUSTOMER RELATIONS CONSULTANT, CUSTOMER RELATIONS CONSULTANT-C Attending Provider Active Start: June 12, 2024 End: June 18, 2024 Lissette Griffin CUSTOMER RELATIONS CONSULTANT, CUSTOMER RELATIONS CONSULTANT-C Referring Provider Active Start: June 12, 2024 End: June 18, 2024 Team Status: Inactive Member Role/Relationship Status Dates Dr. David Chambers MD Primary Care Provider Active Start: July 10, 2024 End: July 10, 2024 Lissette Griffin CUSTOMER RELATIONS CONSULTANT, CUSTOMER RELATIONS CONSULTANT-C Attending Provider Active Start: July 10, 2024 End: July 10, 2024 Lissette Griffin CUSTOMER RELATIONS CONSULTANT, CUSTOMER RELATIONS CONSULTANT-C Referring Provider Active Start: July 10, 2024 End: July 10, 2024 Team Status: Inactive Member Role/Relationship Status Dates Dr. David Chambers MD Primary Care Provider Active Start: August 06, 2024 End: August 06, 2024 Dr. David Chambers MD Other Provider Active Star t: August 06, 2024 End: August 06, 2024 Lissette Griffin CUSTOMER RELATIONS CONSULTANT, CUSTOMER RELATIONS CONSULTANT-C Attending Provider Active Start: August 06, 2024 End: August 06, 2024 Lissette Griffin CUSTOMER RELATIONS CONSULTANT, CUSTOMER RELATIONS CONSULTANT-C Referring Provider Active Start: August 06, 2024 End: August 06, 2024 Team Status: Inactive Member Role/Relationship Status Dates Dr. David Chambers MD Primary Care Provider Active Start: August 19, 2024 Dr. Erika Lopez MD Attending Provider Active Start: August 19, 2024 Team Status: Active Member Role/Relationship Status Dates Dr. David Chambers MD Primary Care Provider Active Start: September 17, 2024 Dr. David Chambers MD Attending Provider Active Start: September 17, 2024 Dr. David Chambers MD Referring Provider Active Start: September 17, 2024 Team Status: Inactive Member Role/Relationship Status Dates Dr. David Chambers MD Primary Care Provider Active Start: September 17, 2024 End: September 18, 2024 Dr. David Chambers MD Other Provider Active Star t: September 17, 2024 End: September 18, 2024 Lissette Griffin CUSTOMER RELATIONS CONSULTANT, CUSTOMER RELATIONS CONSULTANT-C Attending Provider Active Start: September 17, 2024 End: September 18, 2024 Lissette Griffin CUSTOMER RELATIONS CONSULTANT, CUSTOMER RELATIONS CONSULTANT-C Referring Provider Active Start: September 17, 2024 End: September 18, 2024 Team Status: Inactive Member Role/Relationship Status Dates Dr. David Chambers MD Primary Care Provider Active Start: June 12, 2024 End: June 18, 2024 Lissette Griffin CUSTOMER RELATIONS CONSULTANT, CUSTOMER RELATIONS CONSULTANT-C Attending Provider Active Start: June 12, 2024 End: June 18, 2024 Lissette Griffin CUSTOMER RELATIONS CONSULTANT, CUSTOMER RELATIONS CONSULTANT-C Referring Provider Active Start: June 12, 2024 End: June 18, 2024 Team Status: Inactive Member Role/Relationship Status Dates Dr. David Chambers MD Primary Care Provider Active Start: July 10, 2024 End: July 10, 2024 Lissette Griffin CUSTOMER RELATIONS CONSULTANT, CUSTOMER RELATIONS CONSULTANT-C Attending Provider Active Start: July 10, 2024 End: July 10, 2024 Lissette Griffin CUSTOMER RELATIONS CONSULTANT, CUSTOMER RELATIONS CONSULTANT-C Referring Provider Active Start: July 10, 2024 End: July 10, 2024 Team Status: Inactive Member Role/Relationship Status Dates Dr. David Chambers MD Primary Care Provider Active Start: August 06, 2024 End: August 06, 2024 Dr. David Chambers MD Other Provider Active Star t: August 06, 2024 End: August 06, 2024 Lissette Griffin CUSTOMER RELATIONS CONSULTANT, CUSTOMER RELATIONS CONSULTANT-C Attending Provider Active Start: August 06, 2024 End: August 06, 2024 Lissette Griffin CUSTOMER RELATIONS CONSULTANT, CUSTOMER RELATIONS CONSULTANT-C Referring Provider Active Start: August 06, 2024 End: August 06, 2024 Team Status: Inactive Member Role/Relationship Status Dates Dr. David Chambers MD Primary Care Provider Active Start: August 19, 2024 Dr. Erika Lopez MD Attending Provider Active Start: August 19, 2024 Team Status: Inactive Member Role/Relationship Status Dates Dr. David Chambers MD Primary Care Provider Active Start: September 17, 2024 End: September 17, 2024 Dr. David Chambers MD Attending Provider Active Start: September 17, 2024 End: September 17, 2024 Dr. David Chambers MD Referring Provider Active Start: September 17, 2024 End: September 17, 2024 Team Status: Inactive Member Role/Relationship Status Dates Dr. David Chambers MD Primary Care Provider Active Start: September 17, 2024 End: September 18, 2024 Dr. David Chambers MD Other Provider Active Star t: September 17, 2024 End: September 18, 2024 Lissette Griffin CUSTOMER RELATIONS CONSULTANT, CUSTOMER RELATIONS CONSULTANT-C Attending Provider Active Start: September 17, 2024 End: September 18, 2024 Lissette Griffin CUSTOMER RELATIONS CONSULTANT, CUSTOMER RELATIONS CONSULTANT-C Referring Provider Active Start: September 17, 2024 End: September 18, 2024 Team Status: Active Member Role/Relationship Status Dates Dr. David Chambers MD Primary Care Provider Active Start: September 30, 2024 Dr. David Chambers MD Other Provider Active Star t: September 30, 2024 Lissette Griffin CUSTOMER RELATIONS CONSULTANT, CUSTOMER RELATIONS CONSULTANT-C Attending Provider Active Start: September 30, 2024 Lissette Griffin CUSTOMER RELATIONS CONSULTANT, CUSTOMER RELATIONS CONSULTANT-C Referring Provider Active Start: September 30, 2024 Dr. Edward Monahan MD Other Provider Active Start : September 30, 2024 Team Status: Inactive Member Role/Relationship Status Dates Dr. David Chambers MD Primary Care Provider Active Start: July 10, 2024 End: July 10, 2024 Lissette Griffin CUSTOMER RELATIONS CONSULTANT, CUSTOMER RELATIONS CONSULTANT-C Attending Provider Active Start: July 10, 2024 End: July 10, 2024 Lissette Griffin CUSTOMER RELATIONS CONSULTANT, CUSTOMER RELATIONS CONSULTANT-C Referring Provider Active Start: July 10, 2024 End: July 10, 2024 Team Status: Inactive Member Role/Relationship Status Dates Dr. David Chambers MD Primary Care Provider Active Start: August 06, 2024 End: August 06, 2024 Dr. David Chambers MD Other Provider Active Star t: August 06, 2024 End: August 06, 2024 Lissette Griffin CUSTOMER RELATIONS CONSULTANT, CUSTOMER RELATIONS CONSULTANT-C Attending Provider Active Start: August 06, 2024 End: August 06, 2024 Lissette Griffin CUSTOMER RELATIONS CONSULTANT, CUSTOMER RELATIONS CONSULTANT-C Referring Provider Active Start: August 06, 2024 End: August 06, 2024 Team Status: Inactive Member Role/Relationship Status Dates Dr. David Chambers MD Primary Care Provider Active Start: August 19, 2024 Dr. Erkia Lopez MD Attending Provider Active Start: August 19, 2024 Team Status: Inactive Member Role/Relationship Status Dates Dr. David Chambers MD Primary Care Provider Active Start: September 17, 2024 End: September 17, 2024 Dr. David Chambers MD Attending Provider Active Start: September 17, 2024 End: September 17, 2024 Dr. David Chambers MD Referring Provider Active Start: September 17, 2024 End: September 17, 2024 Team Status: Inactive Member Role/Relationship Status Dates Dr. David Chambers MD Primary Care Provider Active Start: September 17, 2024 End: September 18, 2024 Dr. David Chambers MD Other Provider Active Star t: September 17, 2024 End: September 18, 2024 Lissette Griffin CUSTOMER RELATIONS CONSULTANT, CUSTOMER RELATIONS CONSULTANT-C Attending Provider Active Start: September 17, 2024 End: September 18, 2024 Lissette Griffin CUSTOMER RELATIONS CONSULTANT, CUSTOMER RELATIONS CONSULTANT-C Referring Provider Active Start: September 17, 2024 End: September 18, 2024 Team Status: Inactive Member Role/Relationship Status Dates Dr. David Chambers MD Primary Care Provider Active Start: October 09, 2024 End: October 09, 2024 Dr. David Chambers MD Other Provider Active Star t: October 09, 2024 End: October 09, 2024 Lissette Griffin CUSTOMER RELATIONS CONSULTANT, CUSTOMER RELATIONS CONSULTANT-C Attending Provider Active Start: October 09, 2024 End: October 09, 2024 Lissette Griffin CUSTOMER RELATIONS CONSULTANT, CUSTOMER RELATIONS CONSULTANT-C Referring Provider Active Start: October 09, 2024 End: October 09, 2024 Dr. Edward Monahan MD Other Provider Active Start : October 09, 2024 End: October 09, 2024 Team Status: Active Member Role/Relationship Status Dates Dr. David Chambers MD Primary Care Provider Active Start: October 22, 2024 Dr. David Chambers MD Other Provider Active Star t: October 22, 2024 Lissette Griffin CUSTOMER RELATIONS CONSULTANT, CUSTOMER RELATIONS CONSULTANT-C Attending Provider Active Start: October 22, 2024 Lissette Griffin CUSTOMER RELATIONS CONSULTANT, CUSTOMER RELATIONS CONSULTANT-C Referring Provider Active Start: October 22, 2024 Dr. Edward Monahan MD Other Provider Active Start : October 22, 2024 Team Status: Inactive Member Role/Relationship Status Dates Dr. David Chambers MD Primary Care Provider Active Start: October 22, 2024 End: October 22, 2024 Dr. David Chambers MD Attending Provider Active Start: October 22, 2024 End: October 22, 2024 Dr. David Chambers MD Referring Provider Active Start: October 22, 2024 End: October 22, 2024 Team Status: Active Member Role/Relationship Status Dates Dr. David Chambers MD Primary Care Provider Active Start: October 22, 2024 Dr. Vince Carter MD Attending Provider Active S tart: October 22, 2024 Team Status: Active Member Role/Relationship Status Dates Dr. David Chambers MD Primary care physician Active Team Status: Inactive Member Role/Relationship Status Dates Dr. David Chambers MD Primary care physician Active Start: August 06, 2024 End: August 06, 2024 Dr. David Chambers MD Nurse Practitioner Active Start: August 06, 2024 End: August 06, 2024 Lissette Griffin CUSTOMER RELATIONS CONSULTANT, CUSTOMER RELATIONS CONSULTANT-C Attending physician Active Start: August 06, 2024 End: August 06, 2024 Lissette Griffin CUSTOMER RELATIONS CONSULTANT, CUSTOMER RELATIONS CONSULTANT-C Referring Provider Active Start: August 06, 2024 End: August 06, 2024 Team Status: Inactive Member Role/Relationship Status Dates Dr. David Chambers MD Primary care physician Active Start: August 19, 2024 Dr. Erika Lopez MD Attending physician Active Start: August 19, 2024 Team Status: Inactive Member Role/Relationship Status Dates Dr. David Chambers MD Primary care physician Active Start: September 17, 2024 End: September 17, 2024 Dr. David Chambers MD Attending physician Active Start: September 17, 2024 End: September 17, 2024 Dr. David Chambers MD Referring Provider Active Start: September 17, 2024 End: September 17, 2024 Team Status: Inactive Member Role/Relationship Status Dates Dr. David Chambers MD Primary care physician Active Start: September 17, 2024 End: September 18, 2024 Dr. David Chambers MD Nurse Practitioner Active Start: September 17, 2024 End: September 18, 2024 Lissette Griffin CUSTOMER RELATIONS CONSULTANT, CUSTOMER RELATIONS CONSULTANT-C Attending physician Active Start: September 17, 2024 End: September 18, 2024 Lissette Griffin CUSTOMER RELATIONS CONSULTANT, CUSTOMER RELATIONS CONSULTANT-C Referring Provider Active Start: September 17, 2024 End: September 18, 2024 Team Status: Inactive Member Role/Relationship Status Dates Dr. David Chambers MD Primary care physician Active Start: October 09, 2024 End: October 09, 2024 Dr. David Chambers MD Nurse Practitioner Active Start: October 09, 2024 End: October 09, 2024 Lissette Griffin CUSTOMER RELATIONS CONSULTANT, CUSTOMER RELATIONS CONSULTANT-C Attending physician Active Start: October 09, 2024 End: October 09, 2024 Lissette Griffin CUSTOMER RELATIONS CONSULTANT, CUSTOMER RELATIONS CONSULTANT-C Referring Provider Active Start: October 09, 2024 End: October 09, 2024 Dr. Edward Monahan MD Nurse Practitioner Active S tart: October 09, 2024 End: October 09, 2024 Team Status: Inactive Member Role/Relationship Status Dates Dr. David Chambers MD Primary care physician Active Start: October 22, 2024 End: October 22, 2024 Dr. David Chambers MD Attending physician Active Start: October 22, 2024 End: October 22, 2024 Dr. David Chambers MD Referring Provider Active Start: October 22, 2024 End: October 22, 2024 Team Status: Active Member Role/Relationship Status Dates Dr. David Chambers MD Primary care physician Active Start: October 22, 2024 Dr. David Chambers MD Referring Provider Active Start: October 22, 2024 Dr. Vince Carter MD Attending physician Active Start: October 22, 2024 Team Status: Active Member Role/Relationship Status Dates Dr. David Chambers MD Primary care physician Active Start: November 07, 2024 Dr. David Chambers MD Nurse Practitioner Active Start: November 07, 2024 Lissette Griffin CUSTOMER RELATIONS CONSULTANT, CUSTOMER RELATIONS CONSULTANT-C Attending physician Active Start: November 07, 2024 Lissette Griffin NP, CUSTOMER RELATIONS CONSULTANT-C Referring Provider Active Start: November 07, 2024 Dr. Edward Monahan MD Nurse Practitioner Active S tart: November 07, 2024 Team Status: Inactive Member Role/Relationship Status Dates Dr. David Chambers MD Primary care physician Active Start: November 10, 2024 End: November 10, 2024 Dr. David Chambers MD Referring Provider Active Start: November 10, 2024 End: November 10, 2024 Armaan Guallpa MD Attending physician Active S tart: November 10, 2024 End: November 10, 2024 Team Status: Inactive Member Role/Relationship Status Dates Dr. David Chambers MD Primary care physician Active Start: November 07, 2024 End: November 18, 2024 Dr. David Chambers MD Nurse Practitioner Active Start: November 07, 2024 End: November 18, 2024 Lissette Griffin CUSTOMER RELATIONS CONSULTANT, CUSTOMER RELATIONS CONSULTANT-C Attending physician Active Start: November 07, 2024 End: November 18, 2024 Lissette Griffin CUSTOMER RELATIONS CONSULTANT, CUSTOMER RELATIONS CONSULTANT-C Referring Provider Active Start: November 07, 2024 End: November 18, 2024 Dr. Edward Monahan MD Nurse Practitioner Active S tart: November 07, 2024 End: November 18, 2024 Team Status: Active Member Role/Relationship Status Dates Dr. David Chambers MD Primary care physician Active Start: November 19, 2024 Dr. David Chambers MD Nurse Practitioner Active Start: November 19, 2024 Lissette Griffni CUSTOMER RELATIONS CONSULTANT, CUSTOMER RELATIONS CONSULTANT-C Attending physician Active Start: November 19, 2024 Lissette Griffin NP, CUSTOMER RELATIONS CONSULTANT-C Referring Provider Active Start: November 19, 2024 Dr. Edward Monahan MD Nurse Practitioner Active S tart: November 19, 2024 FOR RECORDS PERTAINING TO PATIENTS WHO ARE [...] BE BASED ON THE PRIMARY CLINICAL RECORDS. [facility] [employer] [facility]. provides no warranty or guarantee of the accuracy or completeness of information in this document.
[2025-02-16] MEDS: 0.9% Saline Lock 10 ML Syringe IV (21:28)
[2025-02-16] MEDS: Potassium Chloride Oral Tablet 20 MEQ 40 MEQ PO (21:29)
[2025-02-16] MEDS: Arthritis Pain Compound 60 CLICK TUBE TOPICAL (21:31)
[2025-02-16 21:35] LABS: Troponin T High Sens 4 HR 19 ng/L (<=14)
[2025-02-17] VITALS (8 sets, daily range): BP systolic 113–123; BP diastolic 66–70; PULSE 63–75; RESP 16–20; TEMP 36.3; O2SAT 84–98
[2025-02-17] MEDS: BENZOCAINE/MENTHOL 1 LOZENGE MUCOUS MEM ×2 (04:26→10:29)
[2025-02-17] MEDS: 0.9% Saline Lock 10 ML Syringe IV (06:53)
[2025-02-17 07:12] LABS: Hematocrit 36.1 % (37-47); Hemoglobin 11.7 g/dL (12.0-15.0); Immature Granulocytes Count 0.020 X10^3/uL (0.0-0.0); Mean Corp Hgb Conc 32.4 g/dL (32-36); Mean Corpuscular Volume 86.0 fL (81-99); Mean Platelet Vol. 9.0 fl (6.2-12.0); NRBC Flagged by Analyzer 0 % (0-5); Platelet Count 185 K/mm3 (150-450); RBC Distribution Width CV 16.5 % (11.6-14.6); RBC Distribution Width SD 51.8 fl (35.1-43.9); Red Blood Count 4.20 M/mm3 (4.2-5.4); White Blood Count 4.9 K/mm3 (4.4-11.0)
[2025-02-17 07:21] LABS: Prothrombin Time (Protime)PT. 20.9 SECONDS (11.7-14.9)
[2025-02-17 07:36] LABS: AST(SGOT) 47 U/L (<=31); Alanine Aminotransfer ALT/SGPT 30 U/L (<=34); Albumin, Serum 3.2 g/dL (3.4-4.8); Alkaline Phosphatase 50 U/L (35-104); Anion Gap 10 (7-18); BUN 16 mg/dL (4-19); BUN/Creat Ratio 16.7 RATIO (10-20); Calcium,Total 8.1 mg/dL (7.6-11.0); Carbon Dioxide 24.7 mmol/L (20.0-29.0); Chloride 99 mmol/L (96-106); Estimated Creatinine Clearance 75.62 ml/min (50-250); Globulin 2.9 g/dL (2.2-4.2); Glucose 166 mg/dL (70-99); Magnesium 2.0 mg/dL (1.5-2.2); Potassium 3.6 mmol/L (3.5-5.1)
--- NOTE | 2025-02-17 09:27 | DCINST_ITS ---
Discharge Instructions DC O2, CPAP, BIPAP needs Home O2 Discharge instructions: No Dressing / Incision Discharge Activity: Return to Normal Activity Dressing / Incision Call your doctor if you observe: Fever of 101 or Higher, Shortness of breath, Dizziness, Fainting spells, Swelling in the ankles, Chest pain and Increased palpitations (irregular heartbeat) Follow Up Care Test Results: Test results from this visit will be discussed in further detail at your follow- up appointment, if applicable. Discharge Plan Admission Admit Date/Time: 02/16/25 18:16 Attending Provider: Chace Arevalo Primary Care Provider: David Chambers Consulting Providers: Nova Thompson Instructions Additional Instructions / Restrictions: Walking pulse ox today demonstrated the need for 2 L at rest and 3 L with ambulation Discharge Orders/Prescriptions Prescriptions: New prednisone 20 mg tablet 40 mg PO DAILY Qty: 14 0RF Continued multivitamin Tablet 1 tab PO DAILY amitriptyline 150 mg tablet 150 mg PO QHS hydroxychloroquine 200 mg tablet 200 mg PO BID furosemide 20 mg tablet 20 mg PO QDAY PRN (Reason: edema) Patient Comments: [NO ORIGINAL SIG] levothyroxine 200 mcg tablet 200 mcg PO QDAY Patient Comments: [NO ORIGINAL SIG] Ozempic 0.25 mg or 0.5 mg(2 mg/1.5 mL) pen injector 0.25 mg subcut QWEEK Rx Instructions: for 4 weeks loperamide 2 MG capsule 2 mg PO DAILY PRN (Reason: Diarrhea) Patient Comments: diarrhea pantoprazole 40 MG tablet 40 mg PO DAILY Patient Comments: acid reflux fluticasone propionate 1 SPRAY spray,suspension 1 spray NASAL DAILY Patient Comments: allergies duloxetine 60 MG capsule 60 mg PO DAILY Patient Comments: antidepressant adalimumab 40 mg/0.8 mL syringe kit 40 mg subcut FR gabapentin 300 mg capsule 300 mg PO BID tramadol 50 mg tablet 50 mg PO TID PRN PRN (Reason: pain) Patient Comments: for rheumatoid solifenacin 10 mg tablet 10 mg PO DAILY montelukast 10 mg tablet 10 mg PO DAILY warfarin 2 mg tablet 6 mg PO .COMPLEX Protocol: Dose Management Condition: Sunday Dose/Route: 6 mg Instruction: 1 x 2 mg tablet, 1 x 4 mg tablet Condition: Sunday Dose/Route: 6 mg Instruction: 1 x 2 mg tablet, 1 x 4 mg tablet Condition: Sunday Dose/Route: 0 mg Instruction: 0 tablets Condition: Sunday Dose/Route: 6 mg Instruction: 1 x 2 mg tablet, 1 x 4 mg tablet Condition: Dose/Route: 8 mg Instruction: 2 x 4 mg tablets Condition: Sunday Dose/Route: 6 mg Instruction: 1 x 2 mg tablet, 1 x 4 mg tablet Condition: Sunday Dose/Route: 6 mg Instruction: 1 x 2 mg tablet, 1 x 4 mg tablet Protocol Text: Adjustment Start Date: Sunday02/10/25 INR Value: 4.4 INR Date: 02/09/25 Rx Instructions: 6 mg orally six nights a week; Or as directed aripiprazole 2 mg tablet 2 mg PO DAILY oxycodone 5 mg tablet 5 mg PO 4X/DAY warfarin 4 mg tablet 8 mg PO .COMPLEX Protocol: Dose Management Condition: Sunday Dose/Route: 6 mg Instruction: 1 x 2 mg tablet, 1 x 4 mg tablet Condition: Sunday Dose/Route: 6 mg Instruction: 1 x 2 mg tablet, 1 x 4 mg tablet Condition: Sunday Dose/Route: 0 mg Instruction: 0 tablets Condition: Sunday Dose/Route: 6 mg Instruction: 1 x 2 mg tablet, 1 x 4 mg tablet Condition: Dose/Route: 8 mg Instruction: 2 x 4 mg tablets Condition: Sunday Dose/Route: 6 mg Instruction: 1 x 2 mg tablet, 1 x 4 mg tablet Condition: Sunday Dose/Route: 6 mg Instruction: 1 x 2 mg tablet, 1 x 4 mg tablet Protocol Text: Adjustment Start Date: Sunday02/10/25 INR Value: 4.4 INR Date: 02/09/25 Rx Instructions: 8 mg orally; once weekly albuterol sulfate 1 INHALER inhaler 2 puff INHALATION Q6H PRN PRN (Reason: Asthma) 30 Days Qty: 8.5 0RF amiodarone 200 mg tablet 200 mg PO DAILY Qty: 90 3RF metoprolol tartrate 50 mg tablet 50 mg PO BID Qty: 180 3RF Held triamterene-hydrochlorothiazid 37.5-25 mg capsule 1 cap PO DAILY Hold Instructions: Resume on 02/20/25. Discontinued prednisone 10 mg tablet 10 mg PO DAILY PRN (Reason: RA flair) Referrals / Follow Up: David Chambers MD [Primary Care Provider, Family Practice] - Within 1 Week Disposition Disposition (needs filled in before D/C Order can be placed): Home, Self Care
--- NOTE | 2025-02-17 09:40 | CASEMGMT ---
RN CM Face to Face with patient for initial transition planning/care coordination assessment. RN CM introduced self and role at [facility]. Patient sitting in chair, alert and oriented. Patient willing to participate in assessment and is able to answer all questions appropriately. Care providers, pharmacy, and demographics verified. Strata: 2 PCP: Re[facility] Specialists: RA Kala Fernandez Pharmacy: [facility] Retail Insurance: [employer] Prescription Benefit: yes Living Will/HPOA: yes, sister Bhakti Waite LNOK: sister, nephew Living Arrangements:Patient lives with nephew in a single story home with 1 step and grab bar to enter. Patient states she is independent at home. Transportation: self, nephew DME/HHC: Patient has shower chair, raised toilet, walker, rollator, lift chair, and pulse ox at home. Patient will need glucometer at discharge. Will monitor for home oxygen at discharge, prefers [employer]. Patient has had [facility] in the past. Patient has been to [facility] in the past. Patient wishes to discharge home, denies need for home health at this time. Patient states she has no further needs or concerns at this time. CM to follow for discharge planning needs that may arise. Disposition Plan: Patient to discharge home with family support and follow-up plans in place. Alicia ROMO, RN, CM
[2025-02-17] MEDS: Arthritis Pain Compound 60 CLICK TUBE TOPICAL (10:27)
[2025-02-17] MEDS: Fluticasone 0.05% 1 SPRAY NASAL.SRY NASAL (10:28)
[2025-02-17] MEDS: Tolterodine Tartrate 4 MG CAP.SA PO (10:28)
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
--- NOTE | 2025-02-17 10:51 | DS.PCM_ITS ---
Providers Date of Admission: 02/16/25 Primary Care Physician: Dr. David Chambers MD Reason For Visit: ACUTE EXACERBATION OF ASTHMA 2NDARY TO Diagnosis Discharge Diagnosis (1) Hypoxia: Status: Acute Code(s): R09.02 - Hypoxemia (2) Acute exacerbation of COPD with asthma: Status: Chronic Code(s): J44.1 - Chronic obstructive pulmonary disease with (acute) exacerbation (3) Influenza due to identified novel influenza A virus with pneumonia: Status: Acute Code(s): J09.X1 - Influenza due to identified novel influenza A virus with pneumonia (4) Acute hyponatremia: Status: Acute Code(s): E87.1 - Hypo-osmolality and hyponatremia (5) Acute hypokalemia: Status: Acute Code(s): E87.6 - Hypokalemia (6) Elevated troponin: Status: Acute Code(s): R79.89 - Other specified abnormal findings of blood chemistry (7) Fever: Status: Acute Code(s): R50.9 - Fever, unspecified Medications at Discharge Home Medications fluticasone propionate 50 mcg/actuation nasal spray,suspension 1 spray NASAL DAILY allergies 11/29/15 loperamide 2 mg capsule 2 mg PO DAILY PRN Diarrhea 11/29/15 pantoprazole 40 mg tablet,delayed release 40 mg PO DAILY reflux 11/29/15 duloxetine 60 mg capsule,delayed release 60 mg PO DAILY mental health 12/12/16 adalimumab 40 mg/0.8 mL subcutaneous syringe kit 40 mg subcut FR infection 09/29/20 gabapentin 300 mg capsule 300 mg PO BID nerve pain 09/30/20 multivitamin 1 tab PO DAILY vitamin 09/30/20 montelukast 10 mg tablet 10 mg PO DAILY asthma 08/07/23 solifenacin 10 mg tablet 10 mg PO DAILY rheumatiod 08/07/23 tramadol 50 mg tablet 50 mg PO TID PRN PRN pain 08/07/23 triamterene 37.5 mg-hydrochlorothiazide 25 mg capsule 1 cap PO DAILY BP 08/07/23 Held on 02/17/25. Instructions: Resume on 02/20/25. amitriptyline 150 mg tablet 150 mg PO QHS ask pcp 04/30/24 furosemide 20 mg tablet 20 mg PO QDAY PRN edema 04/30/24 hydroxychloroquine 200 mg tablet 200 mg PO BID ask pcp 04/30/24 levothyroxine 200 mcg tablet 200 mcg PO QDAY ask pcp 04/30/24 amiodarone 200 mg tablet 200 mg PO DAILY ask pcp #90 tabs 05/26/24 warfarin 2 mg tablet 6 mg PO .COMPLEX ask pcp 05/30/24 metoprolol tartrate 50 mg tablet 50 mg PO BID ask pcp #180 tabs 08/07/24 semaglutide 0.25 mg or 0.5 mg (2 mg/1.5 mL) subcutaneous pen injector (Ozempic) 0.25 mg subcut QWEEK ask pcp 11/10/24 aripiprazole 2 mg tablet 2 mg PO DAILY ask pcp 02/16/25 oxycodone 5 mg tablet 5 mg PO 4X/DAY ask pcp 02/16/25 warfarin 4 mg tablet 8 mg PO .COMPLEX ask pcp 02/16/25 albuterol sulfate 90 mcg/actuation aerosol inhaler 2 puff inhalation Q6H PRN PRN Asthma 30 days #8.5 grams 02/17/25 prednisone 20 mg tablet 40 mg (2 x 20 mg) PO DAILY #14 tabs 02/17/25 Hospital Course Operations None Procedures None Summary of Care Provided Minutes Spent on Discharge: 33 Hospital Course: Per HPI: JORDAN BLUM, is a 74 F who presented to the Emergency Dept at [facility] on 02/16/25 with the chief complaint of shortness of breath. Pt has a PMH of asthma and EMMETT but is not tolerant of CPAP. She follows with pulmonary medicine through [facility]. She stated she began to not feel well on Sreekanth Caridad and felt as if she was getting a cold. Since that time she has gotten progressively worse and had a fever all weekend and hasn't been able to get it down and keep it down under 100 degrees. She states that over the last few days she has become progressively more SOB and made an appt with her PCP today as she was not getting better. When she arrived there she was found to be hypoxic and referred to the ED for further evaluation. In addition to her fever and SOB, she has had wheezing, intermittent mild nausea, fatigue, decreased appetite, and myalgias. She is not O2 dependent at baseline. She does have obstructive sleep apnea but is not tolerant of CPAP and does not have a home unit. Vital signs on presentation showed temperature of 101.3, heart rate 78, respiratory 20, blood pressure was 146/87 and pulse ox was 74% on room air. She was placed on 2 L nasal cannula with improvement to her oxygen saturations to 93%. CBC shows a normal white count with no left shift. She does have a monocytosis with a monocyte count of 10.8%. INR is 2.0 and she is on Coumadin at baseline for history of atrial fibrillation. Chemistry panel showed mild hyponatremia the sodium of 132, mild hypokalemia potassium of 3.4. Renal function was normal. She has mild AST elevation at 55 with a normal baseline. Her initial troponin was 27 with a delta of 20. UA is unremarkable. Chest x- ray showed cardiomegaly without any evidence of acute pulmonary disease. She is out of the window for Tamiflu. She was given acetaminophen, albuterol and DuoNeb treatment, 125 mg dose of full prednisolone and 1 L IV fluids the emergency department. With patient's comorbidities and current condition anticipate greater than 2 midnight length of stay. Patient will be admitted to medical surgical floor. Hospital Course: 1. Acute hypoxic respiratory insufficiency secondary to influenza A in the setting of an asthma exacerbation?74-year-old female presented to the hospital with symptoms of influenza A that it started prior to [place] however she became more short of breath and weaker and presented to the hospital. She was started on steroids secondary to the concern for an asthma exacerbation, she was outside the window for Tamiflu. Today she was feeling much better and inquired about the possibility of going home, we discussed the risks and benefits of discharge and she expressed understanding of those risks and benefits and would like to go home if possible. She is afebrile without a leukocytosis therefore I do not believe that she has a superimposed bacterial pneumonia, chest x-ray on admission was negative. I discussed with her the possibility that she could get sick with a bacterial pneumonia in the future and if that were the case she should return to the hospital. In the meantime we will refill her albuterol which she had run out of as well as steroids for 7 days on discharge. I do recommend she follow-up with her PCP as an outpatient. She did have an ambulatory pulse ox, I have reviewed the oxygen testing, and this patient qualifies for the home equipment and portability. The patient is mobile in the home and the community. She did have a slight troponin elevation but this is insignificant in the absence of chest pain. 2. Hyponatremia?exceedingly mild with no significant intervention necessary will hold her triamterene and hydrochlorothiazide for a few days on discharge. 3. Paroxysmal A-fib, rheumatoid arthritis, essential pretension, hyperlipidemia, GERD, chronic pain, fibromyalgia, neuropathy, anxiety, depression are all chronic medical conditions which complicate her care. Her home medications were continued where appropriate Physical Exam Narrative General: Alert, Oriented x3, Cooperative, No apparent distress HEENT: Atraumatic, PERRLA, EOMI, Normocephalic Oral: Moist Mucosa Neck: Supple, No JVD Lungs: Diminished, Normal air movement, No rhonchi, No wheeze, No rales Cardiovascular: Regular rate, Regular Rhythm, Normal S1, Normal S2, No murmurs Abdomen: Soft, Non Tender, Non-Distended, No Hepato-splenomegaly Extremities: No edema, Capillary Refill Less than 3 Seconds Skin: No rashes, No breakdown Musculoskeletal: No Tenderness to Palpation of Joints or Extremities Neurological: No focal neurological deficits, moves all extremities Psych/Mental Status: Normal Affect, Appropriate Weight / BMI Weight Weight: 309 lb 8.464 oz Body Mass Index (BMI) 54.8 ABG / Lab / Microbiology Data 02/17/25 06:59 02/17/25 06:59 Laboratory: Laboratory Results - last 24 hr 02/16/25 16:30: WBC 5.9, RBC 4.40, Hgb 12.3, Hct 37.2, MCV 84.5, MCH 28.0, MCHC 33.1, RDW Std Deviation 51.3 H, RDW Coeff of Rekha 16.6 H, Plt Count 201, MPV 9.1, Immature Gran % (Auto) 0.300, Neut % (Auto) 57.4, Lymph % (Auto) 28.8, Kidder % (Auto) 10.8 H, Eos % (Auto) 2.0, Baso % (Auto) 0.7, Absolute Neuts (auto) 3.4, Absolute Lymphs (auto) 1.69, Nucleated RBC % 0, PT 22.7 H, INR 2.0, APTT 43.3 H, Sodium 132 L, Potassium 3.4 L, Chloride 95 L, Carbon Dioxide 27.3, Anion Gap 10, BUN 14, Creatinine 1.19, Estim Creat Clear Calc 61.17, Est GFR (MDRD) Non-Af 49 L, BUN/Creatinine Ratio 12.1, Glucose 98, Lactic Acid 1.0, Calcium 8.1, Total Bilirubin 0.25, AST 55 H, ALT 34, Alkaline Phosphatase 59, Troponin T High Sens 27 H, Total Protein 6.5, Albumin 3.6, Globulin 3.0, Albumin/Globulin Ratio 1.2 02/16/25 17:38: Urine Color Straw, Urine Clarity Clear, Urine pH 6.0, Ur Specific [place] 1.010, Urine Protein Negative, Urine Glucose (UA) Normal, Urine Ketones Negative, Urine Occult Blood 10 H, Urine Nitrite Negative, Urine Bilirubin Negative, Urine Urobilinogen Normal, Ur Leukocyte Esterase Negative, Urine RBC 0 SEEN, Urine WBC 0-5 SEEN, Ur Squamous Epith Cells 0-5 SEEN, Urine Bacteria 2+, Urine Mucus 0 SEEN 02/16/25 18:28: Troponin T Hi Sens 2 Hr 20 H 02/16/25 20:45: Troponin T Hi Sens 4Hr 19 H 02/16/25 21:25: POC Glucose 232 H 02/17/25 01:28: POC Glucose 166 H 02/17/25 06:48: POC Glucose 146 H 02/17/25 06:59: WBC 4.9, RBC 4.20, Hgb 11.7 L, Hct 36.1 L, MCV 86.0, MCH 27.9, MCHC 32.4, RDW Std Deviation 51.8 H, RDW Coeff of Rekha 16.5 H, Plt Count 185, MPV 9.0, Immature Gran % (Auto) 0.400, Neut % (Auto) 76.0 H, Lymph % (Auto) 19.8, Kidder % (Auto) 3.4, Eos % (Auto) 0.0, Baso % (Auto) 0.4, Absolute Neuts (auto) 3.8, Absolute Lymphs (auto) 0.98, Nucleated RBC % 0, PT 20.9 H, INR 1.8, Sodium 133 L, Potassium 3.6, Chloride 99, Carbon Dioxide 24.7, Anion Gap 10, BUN 16, Creatinine 0.93, Estim Creat Clear Calc 75.62, Est GFR (MDRD) Non-Af 65, BUN/Creatinine Ratio 16.7, Glucose 166 H, Calcium 8.1, Phosphorus 3.5, Magnesium 2.0, Total Bilirubin 0.21, AST 47 H, ALT 30, Alkaline Phosphatase 50, Total Protein 6.1, Albumin 3.2 L, Globulin 2.9, Albumin/Globulin Ratio 1.1 Microbiology: Microbiology 02/16/25 17:38 Urine, Catheterized Urine Culture - 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 No evidence of acute pulmonary disease. Reading Location: [id number] Instructions Call your doctor if you observe: Fever of 101 or Higher, Shortness of breath, Dizziness, Fainting spells, Swelling in the ankles, Chest pain and Increased palpitations (irregular heartbeat) DC O2, CPAP, BIPAP Needs Home O2 Discharge instructions: No Meaningful Use Info Meaningful Use Meaningful Use Diagnoses (Choose all that apply): None applicable Discharge Plan Admission Admit Date/Time: 02/16/25 18:16 Attending Provider: Chace Arevalo Primary Care Provider: David Chambers Consulting Providers: Nova Thompson Instructions Additional Instructions / Restrictions: Walking pulse ox today demonstrated the need for 2 L at rest and 3 L with ambulation Discharge Orders/Prescriptions Prescriptions: New prednisone 20 mg tablet 40 mg PO DAILY Qty: 14 0RF Continued multivitamin Tablet 1 tab PO DAILY amitriptyline 150 mg tablet 150 mg PO QHS hydroxychloroquine 200 mg tablet 200 mg PO BID furosemide 20 mg tablet 20 mg PO QDAY PRN (Reason: edema) Patient Comments: [NO ORIGINAL SIG] levothyroxine 200 mcg tablet 200 mcg PO QDAY Patient Comments: [NO ORIGINAL SIG] Ozempic 0.25 mg or 0.5 mg(2 mg/1.5 mL) pen injector 0.25 mg subcut QWEEK Rx Instructions: for 4 weeks loperamide 2 MG capsule 2 mg PO DAILY PRN (Reason: Diarrhea) Patient Comments: diarrhea pantoprazole 40 MG tablet 40 mg PO DAILY Patient Comments: acid reflux fluticasone propionate 1 SPRAY spray,suspension 1 spray NASAL DAILY Patient Comments: allergies duloxetine 60 MG capsule 60 mg PO DAILY Patient Comments: antidepressant adalimumab 40 mg/0.8 mL syringe kit 40 mg subcut FR gabapentin 300 mg capsule 300 mg PO BID tramadol 50 mg tablet 50 mg PO TID PRN PRN (Reason: pain) Patient Comments: for rheumatoid solifenacin 10 mg tablet 10 mg PO DAILY montelukast 10 mg tablet 10 mg PO DAILY warfarin 2 mg tablet 6 mg PO .COMPLEX Protocol: Dose Management Condition: Sunday Dose/Route: 6 mg Instruction: 1 x 2 mg tablet, 1 x 4 mg tablet Condition: Sunday Dose/Route: 6 mg Instruction: 1 x 2 mg tablet, 1 x 4 mg tablet Condition: Sunday Dose/Route: 0 mg Instruction: 0 tablets Condition: Sunday Dose/Route: 6 mg Instruction: 1 x 2 mg tablet, 1 x 4 mg tablet Condition: Dose/Route: 8 mg Instruction: 2 x 4 mg tablets Condition: Sunday Dose/Route: 6 mg Instruction: 1 x 2 mg tablet, 1 x 4 mg tablet Condition: Sunday Dose/Route: 6 mg Instruction: 1 x 2 mg tablet, 1 x 4 mg tablet Protocol Text: Adjustment Start Date: Sunday02/10/25 INR Value: 4.4 INR Date: 02/09/25 Rx Instructions: 6 mg orally six nights a week; Or as directed aripiprazole 2 mg tablet 2 mg PO DAILY oxycodone 5 mg tablet 5 mg PO 4X/DAY warfarin 4 mg tablet 8 mg PO .COMPLEX Protocol: Dose Management Condition: Sunday Dose/Route: 6 mg Instruction: 1 x 2 mg tablet, 1 x 4 mg tablet Condition: Sunday Dose/Route: 6 mg Instruction: 1 x 2 mg tablet, 1 x 4 mg tablet Condition: Sunday Dose/Route: 0 mg Instruction: 0 tablets Condition: Sunday Dose/Route: 6 mg Instruction: 1 x 2 mg tablet, 1 x 4 mg tablet Condition: Dose/Route: 8 mg Instruction: 2 x 4 mg tablets Condition: Sunday Dose/Route: 6 mg Instruction: 1 x 2 mg tablet, 1 x 4 mg tablet Condition: Sunday Dose/Route: 6 mg Instruction: 1 x 2 mg tablet, 1 x 4 mg tablet Protocol Text: Adjustment Start Date: Lanie 12/23/25 INR Value: 4.4 INR Date: 02/09/25 Rx Instructions: 8 mg orally; once weekly albuterol sulfate 1 INHALER inhaler 2 puff INHALATION Q6H PRN PRN (Reason: Asthma) 30 Days Qty: 8.5 0RF amiodarone 200 mg tablet 200 mg PO DAILY Qty: 90 3RF metoprolol tartrate 50 mg tablet 50 mg PO BID Qty: 180 3RF Held triamterene-hydrochlorothiazid 37.5-25 mg capsule 1 cap PO DAILY Hold Instructions: Resume on 02/20/25. Discontinued prednisone 10 mg tablet 10 mg PO DAILY PRN (Reason: RA flair) Referrals / Follow Up: David Chambers MD [Primary Care Provider, Family Practice] - Within 1 Week Disposition Disposition (needs filled in before D/C Order can be placed): Home, Self Care Charges/Coding Visit Charges Inpatient E&M: 60646 Disch Hosp >30min
== END 2025-02-17 13:38 | disposition home or self-care (01) | DRG 202 ==
LOC: ED 18:15 → MS3 18:57
PROVIDERS: Admitting Provider Internal Medicine; Emergency Provider Emergency Medicine; PCP Family Medicine; Visit Provider Family Medicine
DX: J45.901 Unspecified asthma with (acute) exacerbation (principal); I24.89 Other forms of acute ischemic heart disease; E87.1 Hypo-osmolality and hyponatremia; Z68.43 Body mass index [BMI] 50.0-59.9, adult; Z66 Do not resuscitate; I48.0 Paroxysmal atrial fibrillation; G62.9 Polyneuropathy, unspecified; M06.9 Rheumatoid arthritis, unspecified; E03.9 Hypothyroidism, unspecified; F32.A Depression, unspecified; I10 Essential (primary) hypertension; J10.1 Influenza due to other identified influenza virus with other respiratory manifestations; E66.01 Morbid (severe) obesity due to excess calories; F41.9 Anxiety disorder, unspecified; M79.7 Fibromyalgia; K21.9 Gastro-esophageal reflux disease without esophagitis; I44.0 Atrioventricular block, first degree; G47.33 Obstructive sleep apnea (adult) (pediatric); E87.6 Hypokalemia; K52.9 Noninfective gastroenteritis and colitis, unspecified; R09.02 Hypoxemia; G89.29 Other chronic pain; Z79.01 Long term (current) use of anticoagulants; Z79.51 Long term (current) use of inhaled steroids; Z79.52 Long term (current) use of systemic steroids; Z79.85 Long-term (current) use of injectable non-insulin antidiabetic drugs; Z98.84 Bariatric surgery status; Z86.718 Personal history of other venous thrombosis and embolism; Z79.890 Hormone replacement therapy; Z79.899 Other long term (current) drug therapy
CPT/HCPCS: 36415; 71045; 80053; 81001; 82962; 83605; 83735; 84100; 84484; 85025; 85610; 85730; 87040; 87077; 87086; 87088; 87186; 87631; 93005; 94640; 94668; 99252; 99285; A4216; G0463